=== PATIENT | male | born 1950 | race Caucasian/White ===

== ENCOUNTER 2018-01-02 20:45 | Outpatient (CLI) | payer MEDICARE, OTHER ==
[~2018-01-02 20:45] MED LIST: ACHD5005 PO; CYCL10TA9 PO; DICL75TA2 PO; FLUO40CA12 PO; LISI1TAB10 PO; LISI1TAB6 PO; LORA1TAB PO; MELA1TAB10 PO; MTF500T PO; OMEP20TA2 PO; OXYC-471 PO; TRAZ150T42 PO
== END 2018-01-03 06:15 | disposition home or self-care (01) ==
LOC: SLEEP 20:45
PROVIDERS: ATTEND Nurse Practitioner Community Health
DX: G47.33 Obstructive sleep apnea (adult) (pediatric) (principal); R06.83 Snoring; G47.10 Hypersomnia, unspecified
CPT/HCPCS: 95811

== ENCOUNTER 2018-01-21 20:40 | Outpatient (CLI) | payer MEDICARE, OTHER | END 2018-01-22 06:25 | disposition home or self-care (01) | LOC: SLEEP 20:40 | PROVIDERS: ATTEND Nurse Practitioner | DX: G47.33 Obstructive sleep apnea (adult) (pediatric) (principal) | CPT/HCPCS: 95811 ==

== ENCOUNTER → 2018-02-10 | Outpatient (CLI) | payer MEDICARE ==
--- NOTE | 2018-02-10 14:19 | Diagnostic Imaging Report ---
PROCEDURE: US left lower extremity venous. TECHNIQUE: Multiple real-time grayscale images were obtained over the left lower extremity in various projections. Additional duplex Doppler and color Doppler images were also obtained. INDICATION: Left thigh redness and lump. COMPARISON: None. FINDINGS: The left common femoral vein, superficial femoral vein, and popliteal vein appear patent and compressible. No visible thrombus is seen. There is, however, thrombus superficially seen within a branch of the greater saphenous vein about 3 inches proximal to the knee. IMPRESSION: 1. Superficial thrombophlebitis as described. 2. No evidence of deep venous thrombosis in the left lower extremity. Dictated by: Dictated on workstation # [id number]
== END ==
LOC: RAD 13:07
PROVIDERS: ATTEND Nurse Practitioner Family
DX: I80.02 Phlebitis and thrombophlebitis of superficial vessels of left lower extremity (principal)

== ENCOUNTER → 2018-02-12 | Outpatient (CLI) | payer MEDICARE | LOC: LAB 11:46 | PROVIDERS: ATTEND Pediatrics | DX: I82.812 Embolism and thrombosis of superficial veins of left lower extremity (principal) | CPT/HCPCS: 36415; 81241 ==

== ENCOUNTER → 2018-02-15 | Outpatient (CLI) | payer MEDICARE ==
--- NOTE | 2018-02-15 08:17 | Diagnostic Imaging Report ---
INDICATION: Superficial thrombus in the left leg. Post recent fall. TECHNIQUE: Grayscale with color-flow and Doppler waveform evaluation of the right lower extremity deep venous system. CORRELATION STUDY: None FINDINGS: Color and grayscale sonographic images demonstrate no intraluminal defect within the visualized portion of the common femoral, superficial femoral and/or popliteal veins to suggest thrombus formation. These vessels demonstrate normal response to compression and augmentation. No soft tissue fluid collection. IMPRESSION: 1. Negative for deep venous thrombosis of the right leg. Dictated by: Dictated on workstation # [id number]
== END ==
LOC: RAD 07:30
PROVIDERS: ATTEND Pediatrics
DX: I82.812 Embolism and thrombosis of superficial veins of left lower extremity (principal)

== ENCOUNTER 2018-12-13 17:17 | Observation (INO) | payer MEDICARE, OTHER ==
[~2018-12-13] VITALS: Ht 180.3 cm; Wt 117.5 kg
--- NOTE | 2018-12-13 17:50 | NUR ---
GERMAN RAMIREZ admitted to room 420-1, with an admitting diagnosis of anemia , on 12/13/18 from direct admission via ambulation, accompanied by self. GERMAN RAMIREZ introduced to surroundings, call light, bed controls, phone, TV, temperature control, lights, meal times, smoking policy, visitor policy, side rail policy, bathrooms and showers. Patient Rights given to patient in the handbook. GERMAN RAMIREZ verbalizes understanding that [facility] is not responsible for the loss or damage to any personal effects or valuables that are kept in the patients posession during their hospitalization. GERMAN RAMIREZ verbalizes understanding of Interdisciplinary Patient Education. Patient and/or family were informed about the Rapid Response Team and its purpose.
[2018-12-13] MEDS ORDERED: PATIENT MAY USE OWN MEDS, ALL PO SCH (18:00)
[2018-12-13] MEDS ORDERED: DOCUSATE SODIUM 100 MG (COLACE) CAP PO PRN (18:00)
[2018-12-13 18:05] VITALS: BP 104/66
[2018-12-13 18:18] VITALS: BP 104/66
[2018-12-13 18:24] LABS: BASOPHILS # (AUTO) 0.1 10^3/uL (0.0-0.1); BASOPHILS % (AUTO) 1 % (0-10); EOSINOPHILS # (AUTO) 0.2 10^3/uL (0.0-0.3); EOSINOPHILS % (AUTO) 2 % (0-10); HEMATOCRIT 31 % (40-54); HEMOGLOBIN 10.3 G/DL (13.3-17.7); LYMPHOCYTES # (AUTO) 1.3 X 10^3 (1.0-4.0); LYMPHOCYTES % (AUTO) 12 % (12-44); MEAN CORPUSCULAR HEMOGLOBIN 29 PG (25-34); MEAN CORPUSCULAR HGB CONC 33 G/DL (32-36); MEAN CORPUSCULAR VOLUME 87 FL (80-99); MONOCYTES # (AUTO) 1.1 X 10^3 (0.0-1.0); MONOCYTES % (AUTO) 10 % (0-12); NEUTROPHILS # (AUTO) 8.4 X 10^3 (1.8-7.8); NEUTROPHILS % (AUTO) 76 % (42-75); PLATELET COUNT 426 10^3/uL (130-400); RED CELL DISTRIBUTION WIDTH 14.9 % (10.0-14.5); WHITE BLOOD COUNT 11.1 10^3/uL (4.3-11.0)
[2018-12-13] MEDS: NS IV 1000 ML 1,000 ML IV SCH (18:39)
[2018-12-13 18:40] LABS: BILIRUBIN,TOTAL 0.4 MG/DL (0.1-1.0); CALCIUM 9.2 MG/DL (8.5-10.1); CREATININE SERUM 2.18 MG/DL (0.60-1.30); POTASSIUM 4.8 MMOL/L (3.6-5.0); TOTAL PROTEIN 6.6 GM/DL (6.4-8.2)
[2018-12-13 20:25] LABS: HEMOGLOBIN 9.4 G/DL (13.3-17.7)
[2018-12-13 20:32] VITALS: BP 102/55
[2018-12-14] VITALS: BP 103/57
[2018-12-14] MEDS: NS IV 1000 ML 1,000 ML IV SCH ×3 (02:20→18:42)
[2018-12-14 04:07] VITALS: BP 95/55
[2018-12-14 04:23] LABS: HEMOGLOBIN 8.9 G/DL (13.3-17.7)
[2018-12-14 04:40] LABS: CALCIUM 8.4 MG/DL (8.5-10.1); CREATININE SERUM 1.36 MG/DL (0.60-1.30); POTASSIUM 4.6 MMOL/L (3.6-5.0)
[2018-12-14 07:59] VITALS: BP 111/56
[2018-12-14 12:05] VITALS: BP 120/65
--- NOTE | 2018-12-14 12:42 | History & Physicial (CHS) ---
HPI History of Present Illness: 68 yo male presented to walk in clinic at [facility] yesterday due to worsening dizziness and weakness at work. He states he started having black stools a couple of weeks ago and has been a little dizzy since then, but yesterday was markedly dizzy with bending over or standing up and felt as if he would pass out due to weakness in knees and shoulders when he stood. He was found to have a significant drop in hemoglobin over a few days in clinic and was admitted for further monitoring and work-up. He states he had a colonoscopy a few years ago that was normal, had a colonoscopy around 10 years ago that had precancerous polyp removed. He does not believe he has had upper endoscopy and denies history of ulcer. He has had some abdominal fullness as well as some difficulty passing urine and constipation over the last week. Source: patient Date seen by provider: Dec 14, 2018 Time Seen by Provider: 10:55 Attending Physician Maninder Rutledge MD [facility] [place] Consult Date of Admission Dec 13, 2018 at 17:44 Home Medications Home Medications Reviewed patient Home Medication Reconciliation performed by pharmacy medication reconciliations geotechnical engineering technician and/or nursing. Patients Allergies have been reviewed. Allergies Coded Allergies: No Known Drug Allergies (Unverified , 12/13/18) EAG-Usoqzv-Dunmdk Hx Patient Social History Alcohol Use: Denies Use Recreational Drug Use: No Recent Foreign Travel: No Contact w/other who traveled: No Recent Hopitalizations: No Physical Abuse Screen: No Sexual Abuse: No Immunizations Up To Date Date of Influenza Vaccine: Aug 11, 2018 Past Medical History PMHx: DMII HTN Depression PSurgHx: Pilonidal cyst removal Gastric bypass Rotator cuff repair right Family Medical History Significant Family History: Cancer, Psychiatric Problems Family History: Dementia 19 FATHER, FH: pulmonary embolism Myocardial infarction G8 BROTHER, Review of Systems ([facility]) Constitutional: see HPI EENTM: No nose congestion Respiratory: No cough, No short of breath Cardiovascular: No chest pain Gastrointestinal: see HPI Genitourinary: see HPI Musculoskeletal: joint pain (knees and shoulders) Skin: No rash Psychiatric/Neurological: No Symptoms Reported Reviewed Test Results Reviewed Test Results Lab Laboratory Tests Test 12/13/18 18:08 12/13/18 20:02 12/14/18 00:17 12/14/18 04:15 Range/Units White Blood Count 11.1 H 4.3-11.0 10^3/uL Red Blood Count 3.62 L 4.35-5.85 10^6/uL Hemoglobin 10.3 L 9.4 L 9.0 L 8.9 L 13.3-17.7 G/DL Hematocrit 31 L 29 L 28 L 27 L 40-54 % Mean Corpuscular Volume 87 80-99 FL Mean Corpuscular Hemoglobin 29 25-34 PG Mean Corpuscular Hemoglobin Concent 33 32-36 G/DL Red Cell Distribution Width 14.9 H 10.0-14.5 % Platelet Count 426 H 130-400 10^3/uL Mean Platelet Volume 9.0 7.4-10.4 FL Neutrophils (%) (Auto) 76 H 42-75 % Lymphocytes (%) (Auto) 12 12-44 % Monocytes (%) (Auto) 10 0-12 % Eosinophils (%) (Auto) 2 0-10 % Basophils (%) (Auto) 1 0-10 % Neutrophils # (Auto) 8.4 H 1.8-7.8 X 10^3 Lymphocytes # (Auto) 1.3 1.0-4.0 X 10^3 Monocytes # (Auto) 1.1 H 0.0-1.0 X 10^3 Eosinophils # (Auto) 0.2 0.0-0.3 10^3/uL Basophils # (Auto) 0.1 0.0-0.1 10^3/uL Sodium Level 136 137 135-145 MMOL/L Potassium Level 4.8 4.6 3.6-5.0 MMOL/L Chloride Level 106 108 H 98-107 MMOL/L Carbon Dioxide Level 17 L 20 L 21-32 MMOL/L Anion Gap 13 9 5-14 MMOL/L Blood Urea Nitrogen 57 H 48 H 7-18 MG/DL Creatinine 2.18 H 1.36 H 0.60-1.30 MG/DL Estimat Glomerular Filtration Rate 30 52 BUN/Creatinine Ratio 26 35 Glucose Level 122 H 108 H 70-105 MG/DL Calcium Level 9.2 8.4 L 8.5-10.1 MG/DL Corrected Calcium 9.2 8.5-10.1 MG/DL Total Bilirubin 0.4 0.1-1.0 MG/DL Aspartate Amino Transf (AST/SGOT) 17 5-34 U/L Alanine Aminotransferase (ALT/SGPT) 13 0-55 U/L Alkaline Phosphatase 36 L 40-136 U/L Total Protein 6.6 6.4-8.2 GM/DL Albumin 4.0 3.2-4.5 GM/DL Physical Exam-([facility]) Physical Exam Vital Signs VS - Last 72 Hours, by Label 12/13/18 12/13/18 12/13/18 12/13/18 18:05 18:18 18:19 20:00 Temp 97.6 97.6 Pulse 88 88 Resp 20 20 B/P (MAP) 104/66 (79) 104/66 Pulse Ox 100 100 100 O2 Delivery Room Air Room Air Room Air Room Air 12/13/18 12/14/18 12/14/18 12/14/18 20:32 00:00 04:07 07:59 Temp 98.2 99.1 98.1 97.8 Pulse 96 74 71 71 Resp 20 16 16 16 B/P (MAP) 102/55 (71) 103/57 (72) 95/55 (68) 111/56 (74) Pulse Ox 98 97 95 94 O2 Delivery Room Air NIV CPAP NIV CPAP Room Air 12/14/18 12/14/18 08:55 12:05 Temp 98.8 Pulse 76 Resp 16 B/P (MAP) 120/65 (83) Pulse Ox 94 O2 Delivery Room Air Room Air Capillary Refill : General Appearance: WD/WN, no apparent distress Respiratory: lungs clear, normal breath sounds Cardiovascular: regular rate, rhythm, no murmur Gastrointestinal: normal bowel sounds, non tender, soft; No mass Extremities: no pedal edema Neurologic/Psychiatric: alert, normal mood/affect Skin: normal color, warm/dry Assessment/Plan Assessment/Plan Admission Dx GI bleeding Admission Status: Observation (1) Anemia Status: Acute Assessment & Plan: Suspect due to GI bleed with positive occult blood in stool at clinic yesterday. Surgery consulted, appreciate recommendations. Hemoglobin relatively stable, continue to monitor. Check iron studies and peripheral smear. Qualifiers: Qualified Codes: D64.9 - Anemia, unspecified (2) Acute renal insufficiency Status: Acute Assessment & Plan: Uncertain etiology, possibly due to hypotension versus dehydration. Improved this am with IVF overnight. (3) Diabetes mellitus, type 2 Status: Chronic Assessment & Plan: Sliding scale insulin, diabetic diet when taking PO. Qualifiers: Qualified Codes: E11.65 - Type 2 diabetes mellitus with hyperglycemia (4) Hypertension Status: Chronic Assessment & Plan: Borderline hypotensive, hold home anti-hypertensives (5) BPH (benign prostatic hyperplasia) Status: Chronic Qualifiers: Qualified Codes: N40.1 - Benign prostatic hyperplasia with lower urinary tract symptoms; R39.11 - Hesitancy of micturition (6) EMIR (obstructive sleep apnea) Status: Chronic Assessment & Plan: CPAP (7) Leukocytosis Status: Resolved Assessment & Plan: Suspect reactive related to anemia, resolved this am. Qualifiers: Qualified Codes: D72.828 - Other elevated white blood cell count (8) Thrombocytosis Status: Resolved Assessment & Plan: Likely reactive, resolved this am. (9) DVT prophylaxis Status: Acute Assessment & Plan: No enoxaparin due to possible active bleeding. SCDs. Clinical Quality Measures DVT/VTE Risk/Contraindication: Risk Factor Score Per Nursin RFS Level Per Nursing on Admit: 2=Moderate Contraindications-Pharm: Other *list below* Other: GI bleed MANINDER RUTLEDGE MD Dec 14, 2018 12:42
[2018-12-14] MEDS ORDERED: QUET100T69 PO (12:45)
[2018-12-14] MEDS ORDERED: QUET300T44 PO (12:45)
[2018-12-14] MEDS ORDERED: METF-397 PO (12:45)
[2018-12-14] MEDS ORDERED: NF-ACI30T PO (12:57)
[2018-12-14] MEDS ORDERED: LORA10TA7 PO (12:57)
[2018-12-14] MEDS ORDERED: FISH1CAP15 PO (12:57)
[2018-12-14] MEDS ORDERED: HYDR-3812 PO (12:57)
[2018-12-14] MEDS ORDERED: ASPI-983 PO (12:57)
[2018-12-14] MEDS ORDERED: DESV50TA PO (12:57)
[2018-12-14] MEDS ORDERED: GINK120C PO (12:57)
[2018-12-14] MEDS ORDERED: MELA10CA2 PO (12:57)
--- NOTE | 2018-12-14 12:58 | NUR ---
SPOKE WITH THE PATIENT ABOUT HIS MEDICATIONS. HE HAD HIS BOTTLES WITH HIM AND VERIFIED HOW HE IS TAKING THEM. IN ADDITION TO WHAT IS SHOWN ON THE EXT MED HX HE FILLED PRISTIQ 50MG DAILY #30 12-02-18 - HE STATES THIS WAS TO REPLACE THE 100MG, HIS DOSE WAS DECREASED. HE ALSO HAS TWO BOTTLES OF SEROQUEL 100MG, HE STATES HE NOW TAKES IT AM AND AFTERNOON AND THE 300MG AT HS. OTC MEDS: ASPIRIN 81MG HS MELATONIN 10MG HS GINKGO BILOBA HS FISH OIL 1200MG BID
[2018-12-14 13:04] LABS: ABSOLUTE RETIC # 66 10e9/L (24-90); BASOPHILS # (AUTO) 0.1 10^3/uL (0.0-0.1); BASOPHILS % (AUTO) 1 % (0-10); EOSINOPHILS # (AUTO) 0.2 10^3/uL (0.0-0.3); EOSINOPHILS % (AUTO) 4 % (0-10); HEMATOCRIT 28 % (40-54); HEMOGLOBIN 8.8 G/DL (13.3-17.7); LYMPHOCYTES % (AUTO) 15 % (12-44); MEAN CORPUSCULAR HEMOGLOBIN 28 PG (25-34); MEAN CORPUSCULAR HGB CONC 32 G/DL (32-36); MEAN CORPUSCULAR VOLUME 87 FL (80-99); MEAN PLATELET VOLUME 8.8 FL (7.4-10.4); MONOCYTES # (AUTO) 0.8 X 10^3 (0.0-1.0); MONOCYTES % (AUTO) 12 % (0-12); NEUTROPHILS # (AUTO) 4.6 X 10^3 (1.8-7.8); NEUTROPHILS % (AUTO) 68 % (42-75); PLATELET COUNT 399 10^3/uL (130-400); RETICULOCYTE % 2.09 % (0.50-2.40); WHITE BLOOD COUNT 6.7 10^3/uL (4.3-11.0)
[2018-12-14 13:47] LABS: BAND NEUTROPHILS 2 %; LYMPHOCYTES % (MANUAL) 21 %; MONOCYTES % (MANUAL) 10 %; NEUTROPHILS % (MANUAL) 62 %
[2018-12-14 13:48] LABS: ANISOCYTOSIS SLIGHT; BASOPHILS % (MANUAL) 1 %; EOSINOPHILS % (MANUAL) 4 %
--- NOTE | 2018-12-14 15:27 | Conscious Sedation/ASA ---
Conscious Sedation Pre-Proced Time 15:27 ASA Score 2 For ASA 3 and 4: Consider anesthesia and medical clearance. Also, for patients with a history of failed moderate sedation consider anesthesia. Airway Lungs Heart ASA score ASA 1: a normal healthy patient ASA 2: a patient with a mild systemic disease (mid diabetes, controlled hypertension, obesity ASA 3: a patient with a severe systemic disease that limits activity (angina , COPD, prior Myocardial infarction) ASA 4: a patient with an incapacitating disease that is a constant threat to life (CHF, renal failure) ASA 5: a moribund patient not expected to survive 24 hrs. (ruptured aneurysm) ASA 6: a declared brain- patient whose organs are being harvested. For emergent operations, add the letter E after the classification Mallampati Classification Grade 2 Sedation Plan Discussed options with patient/fam The patient is an appropriate candidate to undergo the planned procedure, sedation, and anesthesia. The patient immediately re-assessed prior to indication. SHARMILA PIÑA MD Dec 14, 2018 15:27
--- NOTE | 2018-12-14 15:27 | Consultation ---
History of Present Illness History of Present Illness Patient Consulted On(mickey/time) 12/14/18 15:24 Date Seen by Provider: Dec 14, 2018 Time Seen by Provider: 15:24 Reason for Visit: iron deficiency anemia with a history of polyps History of Present Illness gentleman with symptomatic and deficiency anemia admitted with melena. Previous history of polyps. Gastric bypass several years ago. Allergies and Home Medications Allergies Coded Allergies: No Known Drug Allergies (Unverified , 12/13/18) Home Medications Aspirin 81 Mg Tablet.dr, 81 MG PO HS, (Reported) Cyclobenzaprine HCl 10 Mg Tablet, 10 MG PO BID PRN for MUSCLE SPASMS, (Reported) Desvenlafaxine Succinate 50 Mg Tab.er.24h, 50 MG PO DAILY, (Reported) Diclofenac Sodium 75 Mg Tablet.dr, 75 MG PO BID, (Reported) Fish Oil/Dha/Epa 1 Each Capsule, 1,200 MG PO BID, (Reported) Ginkgo Biloba Extract 120 Mg Capsule, 120 MG PO HS, (Reported) Hydrocodone/Acetaminophen 1 Each Tablet, 1 TAB PO Q6H PRN for PAIN-MODERATE, ( Reported) Lisinopril/Hydrochlorothiazide 1 Each Tablet, 1 TAB PO DAILY, (Reported) Loratadine 10 Mg Tablet, 10 MG PO DAILY, (Reported) Melatonin 10 Mg Capsule, 10 MG PO HS, (Reported) Metformin HCl 500 Mg Tablet, 500 MG PO BID, (Reported) Quetiapine Fumarate 300 Mg Tablet, 300 MG PO HS, (Reported) Quetiapine Fumarate 100 Mg Tablet, 100 MG PO 0800,1300, (Reported) Rabeprazole Sodium 20 Mg Tablet.dr, 20 MG PO DAILY PRN for HEARTBURN, (Reported) Patient Home Medication List Home Medication List Reviewed: Yes Past Dejrwla-Zxdmzj-Dhvtbj Hx Patient Social History Alcohol Use: Denies Use Recreational Drug Use: No Recent Foreign Travel: No Contact w/Someone Who Travel: No Recent Hopitalizations: No Immunizations Up To Date PED Vaccines UTD: No Date of Influenza Vaccine: Aug 11, 2018 Seasonal Allergies Seasonal Allergies: No Past Medical History Surgeries: Yes (gastric bypass, pilondial cyst, ) Respiratory: Yes (uses cpap, ) Sleep Apnea Currently Using CPAP: Yes Currently Using BIPAP: No Cardiac: Yes (hypertension prior to weight loss) Neurological: No Gastrointestinal: Yes Gastroesophageal Reflux Musculoskeletal: Yes Arthritis Endocrine: Yes Cancer: No Psychosocial: No Depression Integumentary: No Blood Disorders: No Family Medical History Dementia 19 FATHER, FH: pulmonary embolism Myocardial infarction G8 BROTHER, Cancer, Psychiatric Problems Review of Systems-General Constitutional: dizziness, weakness Respiratory: no symptoms reported Cardiovascular: see HPI Gastrointestinal: see HPI Genitourinary: no symptoms reported Musculoskeletal: no symptoms reported Skin: no symptoms reported Psychiatric/Neurological: No Symptoms Reported Physical Exam-General Problems Physical Exam Vital Signs Vital Signs - First Documented 12/13/18 18:05 Temp 97.6 Pulse 88 Resp 20 B/P (MAP) 104/66 (79) Pulse Ox 100 O2 Delivery Room Air Capillary Refill : General Appearance: no apparent distress Neck: supple Cardiovascular: regular rate, rhythm Gastrointestinal: soft, hernia Rectal: deferred Neurologic/Psychiatric: alert, oriented x 3 Skin: warm/dry Comments upper midline scar with a long-standing incisional hernia. Nontender Assessment/Plan Assessment/Plan Admission Diagnosis/Plan gentleman with iron deficiency anemia. Previous gastric bypass and history of polyps. Reasonable to perform upper endoscopy with concomitant colonoscopy. Discussed in detail and scheduled for tomorrow Admission Status: Observation Clinical Quality Measures DVT/VTE Risk/Contraindication: Risk Factor Score Per Nursin RFS Level Per Nursing on Admit: 2=Moderate Contraindications-Pharm: Other *list below* Other: GI bleed SHARMILA PIÑA MD Dec 14, 2018 15:26
[2018-12-14] MEDS ORDERED: MAGNESIUM CITRATE 300 ML BTL PO NR ×2 (15:30→19:00)
[2018-12-14 19:31] VITALS: BP 129/80
[2018-12-15] VITALS: BP 115/76
[2018-12-15] MEDS: NS IV 1000 ML 1,000 ML IV SCH ×2 (02:44→10:41)
[2018-12-15 04:38] VITALS: BP 104/67
[2018-12-15] MEDS ORDERED: MAGNESIUM CITRATE 300 ML BTL PO NR (06:00)
[2018-12-15 06:26] LABS: HEMOGLOBIN 9.1 G/DL (13.3-17.7); MEAN PLATELET VOLUME 8.3 FL (7.4-10.4); RED CELL DISTRIBUTION WIDTH 14.9 % (10.0-14.5); WHITE BLOOD COUNT 5.1 10^3/uL (4.3-11.0)
[2018-12-15 07:04] LABS: BUN/CREATININE RATIO 33; CALCIUM 8.4 MG/DL (8.5-10.1); CARBON DIOXIDE 26 MMOL/L (21-32); CHLORIDE 107 MMOL/L (98-107); GFR ESTIMATED > 60; GLUCOSE 109 MG/DL (70-105); POTASSIUM 4.6 MMOL/L (3.6-5.0); SODIUM 138 MMOL/L (135-145)
[2018-12-15] MEDS ORDERED: LORATADINE (CLARITIN) 10 MG TAB PO SCH (09:00)
[2018-12-15 09:05] VITALS: BP 132/62
[2018-12-15 12:05] VITALS: BP 120/75
--- NOTE | 2018-12-15 12:39 | NUR ---
TO SCOPE ROOM PER W/C.
[2018-12-15] MEDS ORDERED: NS IV 500 ML 500 ML ONE (12:43)
[2018-12-15] MEDS ORDERED: QUEtiapine 100 MG (SEROquel) TAB IMMEDIATE RELEASE PO SCH (13:00)
[2018-12-15] MEDS ORDERED: HURRICAINE EXT TUBE (BENZOCAINE) XX ONE (13:00)
[2018-12-15] MEDS ORDERED: NS IV 500 ML 500 ML IV ONE (13:00)
[2018-12-15] MEDS ORDERED: MIDAZOLAM 2 MG/2 ML (VERSED) VIAL ONE ×3 (13:09)
[2018-12-15] MEDS ORDERED: fentaNYL INJECTION 100 MCG/2 ML AMP ONE (13:09)
[2018-12-15] MEDS ORDERED: HURRICAINE EXT TUBE (BENZOCAINE) ONE (13:10)
[2018-12-15] MEDS: MIDAZOLAM 2 MG/2 ML (VERSED) VIAL IVP PRN ×4 (13:16→13:45)
[2018-12-15] MEDS: fentaNYL INJECTION 100 MCG/2 ML AMP IVP PRN ×2 (13:18→13:44)
[2018-12-15] MEDS ORDERED: HYDROcodone/APAP 5 MG/325 MG (LORTAB) TAB PO PRN ×2 (14:00→14:15)
--- NOTE | 2018-12-15 14:02 | Endo Procedure Record ---
Endo Procedure Report Date of Procedure Last Colonoscopy: Yes Dec 15, 2018 Surgeon (s) SHARMILA PIÑA MD Post Procedure/Op Diagnosis upper endoscopy: Esophageal candidiasis from 33 cm to 40 cm. Normal gastric pouch and jejunum( previous gastric bypass for morbid obesity) Colonoscopy: Very poor bowel prep. Sigmoid diverticulosis Procedure Performed EGD with brush cytology Colonoscopy Description of Procedure Anesthesia Type: Conscious Sedation Specimen(s) collected/removed cytology from esophageal candidiasis Description of the Procedure Indication for the procedures: This gentleman has been admitted with iron deficiency anemia and has a personal history of polyps. He had undergone open gastric bypass several years ago to manage morbid obesity. He was offered upper endoscopy with concomitant colonoscopy as part of the evaluation. Informed consent was obtained after reviewing the procedures in detail. Description of the procedures: Upper endoscopy/brush cytology: He was placed in left lateral position and his vital signs were monitored. Conscious sedation was achieved using Versed and fentanyl. Flexible gastroscope was then introduced down the esophagus, past the gastric pouch into the jejunum. Findings: Esophagus: Changes of activity candidiasis with fibrinous exudates and erythema of the mucosa extending from 32 cm up to the gastroesophageal junction. [place] cytology was obtained. The gastric pouch and jejunum were normal. He tolerated the procedure well and was turned around in preparation for colonoscopy. Impression: An deficiency anemia. Changes of esophageal candidiasis.[place] cytology pending. Will treat conservatively. Colonoscopy: Digital rectal examination revealed incomplete bowel preparation. The colonoscope was then introduced in the rectum and advanced to the right colon. The quality of bowel preparation was rather poor. The scope was then withdrawn slowly and the mucosa examined in a systematic fashion. Findings: Sigmoid diverticulosis. No obvious polyps were discovered, given the limitation due to inadequate bowel preparation. Copy Copies To 1: MANINDER SZYMANSKI MD, XAVIER M MD Dec 15, 2018 14:01
--- NOTE | 2018-12-15 14:36 | NUR ---
RETURNED FROM SCOPE ROOM PER W/C. ALERT AND COOPERATIVE. SKIN W/D. RESP. REGULAR. V/S= TEMP= 97 AG=780/84 P=70 R=20 O2 SAT=97 % ON R/A. DENIES PAIN AT THIS TIME. ABD. SOFT. FAMILY MEMBERS AT BEDSIDE.
[2018-12-15] MEDS ORDERED: FLUC200T5 PO (14:52)
--- NOTE | 2018-12-15 14:55 | Discharge Instructions ---
Discharge [facility] Discharge Medications New, Converted or Re-Newed RX: Transmitted to Pharmacy New Medications: Fluconazole (Fluconazole) 200 Mg Tablet 200 MG PO DAILY, #14 TAB 0 Refills Continued Medications: Aspirin (Aspirin EC) 81 Mg Tablet.dr 81 MG PO HS, TAB Cyclobenzaprine HCl (Cyclobenzaprine HCl) 10 Mg Tablet 10 MG PO BID PRN for MUSCLE SPASMS, TAB Desvenlafaxine Succinate (Pristiq ER) 50 Mg Tab.er.24h 50 MG PO DAILY, TAB Fish Oil/Dha/Epa (Fish Oil 1,200 mg Fish Oil) 1 Each Capsule 1200 MG PO BID, CAP Ginkgo Biloba Extract (Ginkgo Biloba) 120 Mg Capsule 120 MG PO HS, CAP Loratadine (Loratadine) 10 Mg Tablet 10 MG PO DAILY, TAB Melatonin (Melatonin) 10 Mg Capsule 10 MG PO HS, CAP Metformin HCl (Metformin HCl) 500 Mg Tablet 500 MG PO BID, TAB Rabeprazole Sodium (Aciphex) 20 Mg Tablet.dr 20 MG PO DAILY PRN for HEARTBURN, TAB Discontinued Medications: Diclofenac Sodium (Diclofenac Sodium) 75 Mg Tablet.dr 75 MG PO BID, TAB Hydrocodone/Acetaminophen (Hydrocodone-Acetamin 5-325 mg) 1 Each Tablet 1 TAB PO Q6H PRN for PAIN-MODERATE, TAB Lisinopril/Hydrochlorothiazide (Lisinopril-Hctz 10-12.5 mg Tab) 1 Each Tablet 1 TAB PO DAILY, TAB Quetiapine Fumarate (Quetiapine Fumarate) 300 Mg Tablet 300 MG PO HS, TAB Quetiapine Fumarate (Quetiapine Fumarate) 100 Mg Tablet 100 MG PO 0800,1300, TAB Patient Instructions Goal/Follow Up Appt: Follow up with Williams Marrero APRN on 12/20 at 12:40 pm. Patient Instructions: 1. Stop taking your blood pressure medicine for now due to low blood pressure- may need to be resumed, so monitor blood pressure closely. 2. Stop taking diclofenac as it can cause kidney trouble as well as increase risk of gastrointestinal bleeding. 3. Hold your seroquel and hydrocodone while taking diflucan for the esophageal yeast infection because they can cause a dangerous interaction. Return to The Hospital For: Dizziness, shortness of breath, chest pain Activity & Diet Discharge Diet: ADA Diet Activity as Tolerated: Yes Copy Copies To 1: AMANDA Talbert BETHANY N MD Dec 15, 2018 11:52
--- NOTE | 2018-12-15 14:56 | Discharge Summary ---
Diagnosis/Chief Complaint Date of Admission Dec 13, 2018 at 17:50 Date of Discharge Discharge Diagnosis Problems/Diagnosis: (1) Anemia Assessment & Plan: Suspect due to GI bleed with positive occult blood in stool at clinic yesterday. Surgery consulted, appreciate recommendations. Hemoglobin relatively stable, continue to monitor. Check iron studies and peripheral smear. Qualifiers: Qualified Codes: D64.9 - Anemia, unspecified Status: Acute (2) Acute renal insufficiency Assessment & Plan: Uncertain etiology, possibly due to hypotension versus dehydration. Improved this am with IVF overnight. Status: Acute (3) Diabetes mellitus, type 2 Assessment & Plan: Sliding scale insulin, diabetic diet when taking PO. Qualifiers: Qualified Codes: E11.65 - Type 2 diabetes mellitus with hyperglycemia Status: Chronic (4) Hypertension Assessment & Plan: Borderline hypotensive, hold home anti-hypertensives Status: Chronic (5) BPH (benign prostatic hyperplasia) Qualifiers: Qualified Codes: N40.1 - Benign prostatic hyperplasia with lower urinary tract symptoms; R39.11 - Hesitancy of micturition Status: Chronic (6) EMIR (obstructive sleep apnea) Assessment & Plan: CPAP Status: Chronic (7) Leukocytosis Assessment & Plan: Suspect reactive related to anemia, resolved this am. Qualifiers: Qualified Codes: D72.828 - Other elevated white blood cell count Status: Resolved Resolution Date/Time: 12/14/18 @ 12:48 (8) Thrombocytosis Assessment & Plan: Likely reactive, resolved this am. Status: Resolved Resolution Date/Time: 12/14/18 @ 12:48 (9) DVT prophylaxis Assessment & Plan: No enoxaparin due to possible active bleeding. SCDs. Status: Acute Chief Complaint/HPI Chief Complaint/HPI 68 yo male presented to walk in clinic at [facility] yesterday due to worsening dizziness and weakness at work. He states he started having black stools a couple of weeks ago and has been a little dizzy since then, but yesterday was markedly dizzy with bending over or standing up and felt as if he would pass out due to weakness in knees and shoulders when he stood. He was found to have a significant drop in hemoglobin over a few days in clinic and was admitted for further monitoring and work-up. He states he had a colonoscopy a few years ago that was normal, had a colonoscopy around 10 years ago that had precancerous polyp removed. He does not believe he has had upper endoscopy and denies history of ulcer. He has had some abdominal fullness as well as some difficulty passing urine and constipation over the last week. Discharge Summary-Simple/Stand Consultations Discharge Physical Examination Allergies: Coded Allergies: No Known Drug Allergies (Unverified , 12/13/18) Vitals & I&Os Vital Sign - Last 12Hours Date Time Temp Pulse Resp B/P (MAP) Pulse Ox O2 Delivery O2 Flow Rate FiO2 12/15/18 12:05 98.4 72 18 120/75 (90) 97 Room Air Intake and Output 12/15/18 00:00 Intake Total 440 ml Output Total 1 ml Balance 439 ml Hospital Course See final discharge diagnosis. Discharge Instructions to patient/family Please see electronic discharge instructions given to patient. Discharge Medications Reviewed and agree with Discharge Medication list on patient's Discharge Instruction sheet Clinical Quality Measures DVT/VTE Risk/Contraindication: Risk Factor Score Per Nursin RFS Level Per Nursing on Admit: 2=Moderate Contraindications-Pharm: Other *list below* Other: GI bleed MANINDER SZYMANSKI MD Dec 15, 2018 14:56
--- NOTE | 2018-12-15 15:00 | NUR ---
ATE REGULAR DIET. BRAYAN. WELL.
[2018-12-15 16:00] VITALS: BP 120/75
--- NOTE | 2018-12-15 16:00 | NUR ---
GERMAN RAMIREZ demonstrates understanding of discharge instructions and accurately returns instructions upon questioning. Copy of Post-Discharge Instructions given to PT. GERMAN RAMIREZ is able to manage continuing needs after discharge. Patients belongings returned to PT. Patient discharged from [facility] on 12/15/18 at 1600. GERMAN RAMIREZ left floor via W/C, accompanied by STAFF AND FAMILY PER AUTO.
--- NOTE | 2018-12-15 16:11 | NUR ---
Pastoral care visit.
[2018-12-15] MEDS ORDERED: ASPIRIN E.C. 81 MG (ECOTRIN) TAB PO SCH (21:00)
[2018-12-15] MEDS ORDERED: Melatonin 10 MG PO SCH (21:00)
[2018-12-15] MEDS ORDERED: OMEGA 3 (FISH OIL) 1000 MG CAP PO SCH (21:00)
[2018-12-15] MEDS ORDERED: QUETIAPINE FUMARATE 300 MG PO SCH (21:00)
[2018-12-15] MEDS ORDERED: NYSTATIN ORAL SUSP 5 ML UDC PO SCH (21:00)
[2018-12-16] MEDS ORDERED: DESVENLAFAXINE SUCC 50 MG (PRISTIQ) TAB NON-FORMULARY PO SCH (09:00)
[2018-12-16] MEDS ORDERED: LORATADINE (CLARITIN) 10 MG TAB PO SCH (09:00)
[2018-12-17] MEDS ORDERED: fluCOnazole (DIFLUCAN) 100 MG TAB PO SCH (09:00)
== END 2018-12-15 16:00 | disposition home or self-care (01) ==
LOC: UNDOADMOB 17:44 → 4TH 17:44
PROVIDERS: ADMIT Family Medicine; ATTEND Family Medicine
DX: D50.9 Iron deficiency anemia, unspecified (principal); R19.5 Other fecal abnormalities; B37.81 Candidal esophagitis; K57.30 Diverticulosis of large intestine without perforation or abscess without bleeding; E11.9 Type 2 diabetes mellitus without complications; I10 Essential (primary) hypertension; F32.9 Major depressive disorder, single episode, unspecified; N28.9 Disorder of kidney and ureter, unspecified; N40.0 Benign prostatic hyperplasia without lower urinary tract symptoms; G47.33 Obstructive sleep apnea (adult) (pediatric); K21.9 Gastro-esophageal reflux disease without esophagitis; Z79.82 Long term (current) use of aspirin; Z79.84 Long term (current) use of oral hypoglycemic drugs; Z79.899 Other long term (current) drug therapy; Z86.010 Personal history of colon polyps; Z98.84 Bariatric surgery status
CPT/HCPCS: 36415; 80048; 80053; 82728; 83540; 85007; 85014; 85018; 85025; 85027; 85045; 87101; 99211; G0378

== ENCOUNTER → 2019-12-30 | Outpatient (CLI) | payer MEDICARE ==
[~2019-12-30] MED LIST changes: +AMLO5TAB9 PO; +ASPI-983 PO; +DESV100T PO; +DESV50TA PO; +DOCU100C37 PO; +FISH1CAP15 PO; +FLUC200T5 PO; +GABA-486 PO; +GINK120C PO; +GLIP5TAB13 PO; +HOLD METFORMIN - RECEIVED CONTRAST 20 ML VIAL IV SCH; +HYDR-3812 PO; +IOHEXOL 350 MG/ML 100 ML (OMNIPAQUE 350) VIAL IV ONE; +LISI1TAB29 PO; -LISI1TAB6 PO; +LORA10TA7 PO; +MELA10CA2 PO; +METF-397 PO; +NF-ACI30T PO; +NS 100 ML (IVPB) BAG IV ONE; +PANT40TA3 PO; +QUET100T PO; +QUET100T33 PO; +QUET300T2 PO; +QUET300T44 PO; +RT-ALBUTEROL SULF 2.5 MG/3 ML PRE-MIX VIAL INH ONE
[2019-12-30 08:03] LABS: BUN/CREATININE RATIO 21; CREATININE SERUM 1.04 MG/DL (0.60-1.30); GFR ESTIMATED > 60
[2019-12-30 08:23] LABS: ABG OXYGEN SATURATION 93 % (94-100); ABG PCO2 39 MMHG (35-45); ABG PH 7.41 (7.37-7.43); ABG PO2 74 MMHG (79-93); ABG TCO2 25.5 MMOL/L (21.0-31.0); ALLENS TEST YES-POS; INSPIRED O2 ROOM AIR
[2019-12-30 08:24] LABS: PATIENT TEMP 36.5; VENTILATOR NO
--- NOTE | 2019-12-30 11:42 | Diagnostic Imaging Report ---
PROCEDURE: CT chest with contrast only. TECHNIQUE: Multiple contiguous axial images were obtained through the chest after administration of intravenous contrast. Auto Exposure Controls were utilized during the CT exam to meet ALARA standards for radiation dose reduction. INDICATION: Dyspnea, morbid obesity, obstructive sleep apnea, tobacco use. CORRELATION STUDY: None. FINDINGS: Heart size is normal. There is presence of moderate coronary artery calcification particularly in the region of the LAD. No appreciable pericardial effusion. No pathologically enlarged mediastinal, hilar and/or axillary lymph nodes. Thoracic aorta is of normal caliber. There is presence of a small hiatal hernia. Scattered areas of asymmetric wall thickening about the esophagus present particularly in the mid aspect. Lung harris are clear. No infiltrate. Visualized portion of the upper abdomen demonstrates extensive surgical changes of the left upper quadrant of the stomach. Gallstones are present. Mild diffuse hepatic steatosis suggested. Advanced degenerative changes of thoracic spine with bulky bridging osteophytes present. IMPRESSION: 1. Negative for acute abnormality of the chest. 2. Presence of scattered coronary artery calcification. 3. Small hiatal hernia. Scattered areas of asymmetric wall thickening about the esophagus. Findings are nonspecific, could be owing to esophagitis. However, infiltrative process is not excluded. Correlation with symptoms recommended. 4. Cholelithiasis. Dictated by: Dictated on workstation # [id number]
[2019-12-31 07:41] LABS: ALTERNARIA MOLD RAST <0.35 kU/L (<0.35); RAGWEED RAST <0.35 kU/L (<0.35)
== END ==
LOC: RT 07:21
PROVIDERS: ATTEND Nurse Practitioner Family
DX: J44.9 Chronic obstructive pulmonary disease, unspecified (principal); G47.33 Obstructive sleep apnea (adult) (pediatric); J30.9 Allergic rhinitis, unspecified; R91.8 Other nonspecific abnormal finding of lung field
CPT/HCPCS: 36415; 36600; 71260; 82565; 82805; 84520; 86003; 94060; 94726; 94729

== ENCOUNTER 2020-01-04 13:03 | Outpatient (CLI) | payer MEDICARE ==
[~2020-01-04] VITALS: Ht 180 cm; Wt 122.0 kg
[~2020-01-04 13:03] MED LIST changes: -HOLD METFORMIN - RECEIVED CONTRAST 20 ML VIAL IV SCH; -IOHEXOL 350 MG/ML 100 ML (OMNIPAQUE 350) VIAL IV ONE; -NS 100 ML (IVPB) BAG IV ONE; -RT-ALBUTEROL SULF 2.5 MG/3 ML PRE-MIX VIAL INH ONE
== END 2020-01-04 13:16 | disposition home or self-care (01) ==
LOC: PREOP 13:03
PROVIDERS: ATTEND Surgery
DX: Z01.818 Encounter for other preprocedural examination (principal)

== ENCOUNTER 2020-06-17 08:33 | Observation (INO) | payer MEDICARE ==
[~2020-06-17] VITALS: Ht 177.8 cm; Wt 122.2 kg
[~2020-06-17 08:33] MED LIST changes: -HYDR-3812 PO
--- OUTSIDE RECORDS SUMMARY | 2020-06-17 08:39 | XMS REPORT ---
Author Author Barrie BUSTILLO Organization [facility] Address [address] [place] [address] Care Team Providers Care Yard Supervisor Cotton Gin Name Role Phone BARRIE BUSTILLO Unavailable PROBLEMS Type Condition ICD9-CM Code FFU40-TE Code Onset Dates Condition S tatus SNOMED Code Problem Primary insomnia F51.01 Active 397 2004 Problem Diabetes type 2, controlled E11.9 Ac tive 28471374 Problem Urinary hesitancy R39.11 Active 59 87905 Problem Essential hypertension I10 Active 56531187 Problem 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.1 Active 226284768 Problem Obstructive sleep apnea G47.33 Active 75735133 Problem Benign prostatic hyperplasia with lower urinary tract symptoms N40.1 Active 603807483 Problem Controlled type 2 diabetes m ellitus without complication, without long- term current use of insulin E11.9 Active 711258809 Problem 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 Acti ve 39257439 Problem Panlobular emphysema J43.1 Active 1288207 Problem Hesitancy of micturition R39.11 Activ e 9427422 Problem Chronic fatigue R53.82 Active 8422 9001 Problem Acute superficial venous thrombosis of left lower extremit y I82.812 Active [id number] Problem Uncontrolled type 2 diabetes mellitus with hyperglycemia E11.65 Active 799432347 Problem Arthritis M19.90 Active 0223200 Problem EMIR (obstructive sleep apnea) G47.33 Active 96682226 Problem Mood disorder F39 Active 178882 05 ALLERGIES No Information ENCOUNTERS Encounter Location Date Diagnosis [facility] [address] [facility] [id number] [address] [place] [phone] Jun, [facility] [address] [facility] [id number] [address] [place] [phone] Jun, [facility] [address] [facility] [id number] [address] [place] [phone] Jun, [place] [address] [id number] [address] [place] [phone] 16 May, 2020 Moderate episode of recurren t major depressive disorder F33.1 [place] [address] [id number] [address] [place] [id number] 03 May, 2020 [place] [address] [facility] [id number] [address] [place] [id number] 14 Apr, 2020 Encounter for screening labo ratory testing for COVID-19 virus Z11.59 [place] [address] [id number] [address] [place] [phone] 04 Apr, 2020 Moderate episode of recurren t major depressive disorder F33.1 [place] [address] [facility] [id number] [address] [place] [phone] 29 Mar, 2020 Diabetes type 2, controlled E11.9 ; Family history of early CAD Z82.49 ; Chest pain on exertion R07.9 and Chronic fatigue R53.82 [place] [address] [id number] [address] [place] [phone] March, [place] [address] [id number] [address] [place] [phone] March, Moderate episode of recurren t major depressive disorder F33.1 [place] [address] [facility] [id number] [address] [place] [phone] March, Moderate episode of recurren t major depressive disorder F33.1 [place] [address] [id number] [address] [place] [phone] March, Foot callus L84 [place] [address] [id number] [address] [place] [id number] March, Moderate episode of recurren t major depressive disorder F33.1 [place] [address] [id number] [address] [place] [phone] Jan, Foot callus L84 [place] [address] [facility] [id number] [address] [place] [phone] 07 Dec, 2019 Moderate episode of recurren t major depressive disorder F33.1 [facility] [address] [id number] [address] [place] [phone] 04 Dec, 2019 Moderate episode of recurren t major depressive disorder F33.1 [facility] [address] [id number] [address] [place] [phone] 04 Dec, 2019 Moderate episode of recurren t major depressive disorder F33.1 [facility] [address] [id number] [address] [place] [phone] 16 Nov, 2019 Panlobular emphysema J43.1 ; Mood disorder F39 and Controlled type 2 diabetes mellitus without complication, without long-term current use of insulin E11.9 [facility] [address] [id number] [address] [place] [phone] Nov, [place] [address] [facility] [id number] [address] [place] [phone] Nov, Increased sputum production R09.3 and EMIR (obstructive sleep apnea) G47.33 [facility] [address] [id number] [address] [place] [phone] Oct, [facility] [address] [id number] [address] [place] [phone] Sep, [facility] [address] [id number] [address] [place] [phone] Sep, [facility] [address] [id number] [address] [place] [id number] Sep, [facility] [address] [id number] [address] [place] [phone] Aug, Moderate episode of recurren t major depressive disorder F33.1 [facility] [address] [id number] [address] [place] [phone] Aug, Moderate episode of recurren t major depressive disorder F33.1 [facility] [address] [id number] [address] [place] [phone] Aug, Moderate episode of recurren t major depressive disorder F33.1 [facility] [address] [id number] [address] [place] [phone] Jul, [facility] [address] [id number] [address] [place] [phone] Jul, Foot callus L84 ; Uncontroll ed type 2 diabetes mellitus with hyperglycemia E11.65 ; Arthritis M19.90 ; Encounter for immunization Z23 ; Rib pain on right side R07.81 and Lumbar pain M54.5 [facility] [address] [id number] [address] [place] [phone] Jul, [facility] [address] [id number] [address] [place] [phone] Jun, [facility] [address] [id number] [address] [place] [phone] Jun, [facility] [address] [id number] [address] [place] [phone] Jun, Callus of foot L84 [facility] [address] [id number] [address] [place] [phone] Jun, [facility] [address] [id number] [address] [place] [phone] Apr, Exercise counseling Z71.82 [facility] [address] [id number] [address] [place] [phone] March, Moderate episode of recurren t major depressive disorder F33.1 [facility] [address] [id number] [address] [place] [phone] March, Moderate episode of recurren t major depressive disorder F33.1 [facility] [address] [id number] [address] [place] [phone] March, Exercise counseling Z71.82 [facility] [address] [id number] [address] [place] [phone] March, [facility] [address] [id number] [address] [place] [phone] March, Exercise counseling Z71.82 [facility] [address] [id number] [address] [place] [phone] March, Right otitis media with effu yousuf H65.91 ; 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 and Diabetes type 2, controlled E11.9 [place] [address] [id number] [address] [place] [phone] March, Moderate episode of recurren t major depressive disorder F33.1 [place] [address] [id number] [address] [place] [phone] March, Exercise counseling Z71.82 [place] [address] [facility] [id number] [address] [place] [phone] March, Exercise counseling Z71.82 [place] [address] [id number] [address] [place] [phone] March, Callus of foot L84 [place] [address] [id number] [address] [place] [phone] Feb, Moderate episode of recurren t major depressive disorder F33.1 [place] [address] [id number] [address] [place] [phone] Feb, [place] [address] [id number] [address] [place] [phone] Feb, Moderate episode of recurren t major depressive disorder F33.1 [facility] [address] [id number] [address] [place] [phone] Feb, Diabetes type 2, controlled E11.9 and Essential hypertension I10 [facility] [address] [id number] [address] [place] [phone] Jan, [facility] [address] [facility] [id number] [address] [place] [phone] Jan, Callus of foot L84 [place] [address] [facility] [id number] [address] [place] [phone] Jan, Moderate episode of recurren t major depressive disorder F33.1 [facility] [address] [facility] [id number] [address] [place] [phone] Jan, Moderate episode of recurren t major depressive disorder F33.1 [facility] [address] [facility] [id number] [address] [place] [phone] Dec, Moderate episode of recurren t major depressive disorder F33.1 [facility] [address] [facility] [id number] [address] [place] [phone] Dec, Candidiasis of the esophagus B37.81 [facility] [address] [facility] [id number] [address] [place] [id number] Dec, [facility] [address] [facility] [id number] [address] [place] [phone] Dec, Fecal occult blood test posi tive R19.5 and Anemia, unspecified type D64.9 [facility] [address] [facility] [id number] [address] [place] [phone] Nov, Stool color black K92.1 [facility] [address] [facility] [id number] [address] [place] [phone] Nov, Stool color black K92.1 [facility] [address] [facility] [id number] [address] [place] [phone] Nov, Stool color black K92.1 [facility] [address] [facility] [id number] [address] [place] [phone] Nov, [facility] [address] [facility] [id number] [address] [place] [phone] Nov, Moderate episode of recurren t major depressive disorder F33.1 [facility] [address] [facility] [id number] [address] [place] [phone] Oct, Moderate episode of recurren t major depressive disorder F33.1 [place] [address] [id number] [address] [place] [phone] 18 Oct, 2018 Callus of foot L84 and Contr olled type 2 diabetes mellitus without complication, without long-term current use of insulin E11.9 [place] [address] [id number] [address] [place] [phone] 10 Oct, 2018 Moderate episode of recurren t major depressive disorder F33.1 [place] [address] [id number] [address] [place] [phone] 17 Aug, 2018 Mood disorder F39 [place] [address] [id number] [address] [place] [phone] 05 Aug, 2018 Encounter for immunization Z 23 [place] [address] [id number] [address] [place] [phone] Jul, Moderate episode of recurren t major depressive disorder F33.1 [place] [address] [id number] [address] [place] [phone] Jul, Moderate episode of recurren t major depressive disorder F33.1 [place] [address] [id number] [address] [place] [phone] May, [place] [address] [id number] [address] [place] [phone] May, Moderate episode of recurren t major depressive disorder F33.1 [place] [address] [id number] [address] [place] [phone] May, Moderate episode of recurren t major depressive disorder F33.1 [place] [address] [id number] [address] [place] [id number] Apr, Benign prostatic hyperplasia with lower urinary tract symptoms N40.1 and Hesitancy of micturition R39.11 [place] [address] [id number] [address] [place] [phone] Apr, Moderate episode of recurren t major depressive disorder F33.1 [place] [address] [id number] [address] [place] [phone] Apr, Unspecified mood [affective] disorder F39 and Primary insomnia F51.01 [facility] [address] [facility] [id number] [address] [place] [phone] Apr, Primary insomnia F51.01 [facility] [address] [id number] [address] [place] [phone] March, Foot callus L84 [facility] [address] [facility] [id number] [address] [place] [phone] Feb, Medicare annual wellness vis it, initial Z00.00 [facility] [address] [facility] [id number] [address] [place] [phone] Feb, Acute superficial venous thr ombosis of left lower extremity I82.812 [facility] [address] [facility] [id number] [address] [place] [phone] Feb, [facility] [address] [facility] [id number] [address] [place] [phone] Feb, [facility] [address] [id number] [address] [place] [phone] Feb, Acute superficial venous thr ombosis of left lower extremity I82.812 [facility] [address] [facility] [id number] [address] [place] [phone] Feb, [facility] [address] [facility] [id number] [address] [place] [phone] Feb, Other specified soft tissue disorders M79.89 and Pain in left leg M79.605 [facility] [address] [facility] [id number] [address] [place] [phone] Jan, Obstructive sleep apnea G47. 33 [facility] [address] [facility] [id number] [address] [place] [phone] Dec, Obstructive sleep apnea G47. 33 and Mood disorder F39 [facility] [address] [facility] [id number] [address] [place] [phone] Dec, [facility] [address] [facility] [id number] [address] [place] [phone] Dec, [facility] [address] [facility] [id number] [address] [place] [phone] Nov, Diabetes type 2, controlled E11.9 [facility] [address] [facility] [id number] [address] [place] [phone] Nov, Encounter for immunization Z 23 [facility] [address] [facility] [id number] [address] [place] [phone] Nov, Primary insomnia F51.01 [facility] [address] [facility] [id number] [address] [place] [phone] 07 Oct, 2017 Medicare annual wellness vis it, subsequent Z00.00 and Mood disorder F39 [facility] [address] [facility] [id number] [address] [place] [phone] Sep, Mood disorder F39 [facility] [address] [facility] [id number] [address] [place] [phone] Aug, Primary insomnia F51.01 and Urinary hesitancy R39.11 [facility] [address] [facility] [id number] [address] [place] [phone] Aug, Primary insomnia F51.01 [facility] [address] [facility] [id number] [address] [place] [phone] Jul, Diabetes type 2, controlled E11.9 ; Primary insomnia F51.01 and Mood disorder F39 [facility] [address] [id number] [id number] Jun, Mood disorder F39 [facility] [address] [id number] LEODANMonika S [id number] Jun, [facility] [address] [facility] [id number] [address] [place] [phone] May, Nightmares F51.5 [facility] [address] [id number] [address] [place] [phone] May, Cognitive complaints R41.9 ; Unspecified mood [affective] disorder F39 and Primary insomnia F51.01 [facility] [address] [id number] [address] [place] [phone] Apr, Mood disorder F39 and Primar y insomnia F51.01 [facility] [address] [id number] [address] [place] [phone] Apr, Cognitive complaints R41.9 a nd Unspecified mood [affective] disorder F39 [facility] [address] [id number] [address] [place] [phone] Apr, Cognitive complaints R41.9 a nd Unspecified mood [affective] disorder F39 [facility] [address] [id number] [address] [place] [phone] March, [facility] [address] [id number] [address] [place] [phone] March, Diabetes type 2, controlled E11.9 and Essential hypertension I10 [facility] [address] [id number] [address] [place] [id number] March, Primary insomnia F51.01 ; Di abetes type 2, controlled E11.9 and Pain in right shoulder M25.511 [facility] [address] [id number] [address] [place] [phone] March, Cognitive complaints R41.9 a nd Unspecified mood [affective] disorder F39 [facility] [address] [id number] [address] [place] [phone] Feb, Other specified mental disor ders due to known physiological condition F06.8 [facility] [address] [id number] [address] [place] [phone] Jan, [facility] [address] [id number] [address] [place] [phone] Jan, [facility] [address] [id number] [address] [place] [phone] 24 Dec, 2016 Diabetes type 2, controlled E11.9 ; Hypertension, benign I10 and Mood disorder F39 [facility] [address] [id number] [address] [place] [id number] 08 Dec, 2016 Medicare annual wellness vis it, initial Z00.00 [facility] [address] [id number] [address] [place] [id number] 05 Nov, 2016 Medicare welcome exam Z00.00 ; Encounter for immunization Z23 ; Medicare annual wellness visit, initial Z00.00 and Medicare annual wellness visit, subsequent Z00.00 [facility] [address] [id number] [address] [place] [phone] Oct, [facility] [address] [id number] [address] [place] [phone] Sep, [facility] [address] [id number] [address] [place] [phone] Aug, Encounter for immunization Z 23 and Callus L84 [facility] [address] [id number] [address] [place] [phone] Aug, [facility] [address] [id number] [address] [place] [phone] Jul, Diabetes type 2, controlled E11.9 [facility] [address] [id number] [address] [place] [phone] Jul, Diabetes type 2, controlled E11.9 [facility] [address] [id number] [address] [place] [phone] Jun, [facility] [address] [id number] [address] [place] [phone] Jun, Hypertension, benign I10 ; M ood disorder F39 and Diabetes type 2, controlled E11.9 [facility] [address] [id number] [address] [place] [phone] Jun, Mood disorder F39 [facility] [address] [id number] [address] [place] [phone] May, [facility] [address] [id number] [address] [place] [phone] May, Mood disorder F39 [facility] [address] [id number] [address] [place] [id number] May, Mood disorder F39 [facility] [address] [id number] [address] [place] [id number] Apr, Controlled type 2 diabetes m [place] without complication, without long-term current use of insulin E11.9 ; Essential hypertension I10 and Pain in right shoulder M25.511 [facility] [address] [id number] [address] [place] [phone] Apr, Mood disorder F39 [facility] [address] [id number] [address] [place] [phone] Apr, Pre-op evaluation Z01.818 [facility] [address] [id number] [address] [place] [phone] March, Mood disorder F39 [facility] [address] [id number] [address] [place] [phone] Feb, [facility] [address] [id number] [address] [place] [id number] Feb, Shoulder pain, right M25.511 [facility] [address] [id number] [address] [place] [id number] Feb, Shoulder pain, right M25.511 [facility] [address] [id number] [address] [place] [id number] Feb, Shoulder pain, right M25.511 [facility] [address] [id number] [address] [place] [id number] Feb, Shoulder pain, right M25.511 [facility] [address] [id number] [address] [place] [phone] Jan, Shoulder pain, right M25.511 [place] [address] [id number] Jan, Shoulder pain, right M25.511 [place] [address] [id number] Jan, [place] [address] [phone] Jan, Diabetes type 2, controlled E11.9 [place] [address] [id number] Jan, Shoulder pain, right M25.511 ; Diabetes mellitus without mention of complication, type II or unspecified type, not stated as uncontrolled 250.00 and Diabetes type 2, controlled E11.9 [place] [address] [address] Jan, [place] [address] [address] Jan, [place] [address] [address] Dec, [place] [address] [address] Oct, Callus of foot L84 [place] [address] [address] Oct, Anxiety F41.9 ; Callus of fo ot L84 and Dysuria R30.0 [place] [address] [address] Sep, Diabetes mellitus without me ntion of complication, type II or unspecified type, not stated as uncontrolled 250.00 [place] [address] [address] Aug, Diabetes mellitus without me ntion of complication, type II or unspecified type, not stated as uncontrolled 250.00 [place] [address] [id number] Jul, [facility] [address] [id number] [address] [place] [phone] Jul, [facility] [address] [id number] [address] [place] [phone] Jul, Diabetes mellitus without me ntion of complication, type II or unspecified type, not stated as uncontrolled 250.00 ; Essential hypertension, benign 401.1 and Anxiety state, unspecified 300.00 [facility] [address] [id number] [address] [place] [phone] Jul, [facility] [address] [id number] [address] [place] [phone] Jun, [facility] [address] [id number] [address] [place] [phone] Jun, [facility] [address] [id number] [address] [place] [phone] May, [facility] [address] [id number] [address] [place] [id number] May, [facility] [address] [id number] [address] [place] [phone] Apr, [facility] [address] [facility] [id number] [address] [place] [phone] Apr, Mood disorder 296.90 [facility] [address] [id number] [address] [place] [phone] March, [facility] [address] [id number] [address] [place] [phone] Feb, [facility] [address] [id number] [address] [place] [phone] Feb, [facility] [address] [facility] [id number] [address] [place] [phone] Jan, [facility] [address] [id number] [address] [place] [phone] Jan, [facility] [address] [id number] [address] [place] [address], [place] [address] Jan, [facility] [address] [id number] [address] [place] [address], [place] [address] Jan, [facility] [address] [id number] [address] [place] [address], [place] [address] Jan, [facility] [address] [id number] [address] [place] [address], [place] [address] Jan, [facility] [address] [id number] [address] [place] [address], [place] [address] Jan, [facility] [address] [id number] [address] [place] [address], [place] [address] Jan, [facility] [address] [id number] [address] [place] [address], [place] [address] Dec, [facility] [address] [id number] [address] [place] [address], [place] [address] Dec, [facility] [address] [id number] [address] [place] [address], [place] [address] Nov, [facility] [address] [id number] [address] [place] [address], [place] [address] Nov, [facility] [address] [id number] [address] [place] [address], [place] [address] Nov, [facility] [address] [id number] [address] [place] [address], [place] [address] Nov, [facility] [address] [id number] [address] [place] [address], [place] [address] Oct, [facility] [address] [id number] [address] [place] [address], [place] [address] Oct, [facility] [address] [id number] [address] [place] [address], [place] [address] Oct, [facility] [address] [id number] [address] [place] [phone] 24 Oct, 2014 [facility] [address] [id number] [address] [place] [address], [place] [address] Oct, [facility] [address] [id number] [address] [place] [address], [place] [address] 24 Oct, 2014 [facility] [address] [id number] [address] [place] [address], [place] [address] 17 Oct, 2014 [facility] [address] [id number] [address] [place] [address], [place] [address] 17 Oct, 2014 [facility] [address] [id number] [address] [place] [address], [place] [address] 15 Oct, 2014 [facility] [address] [id number] [address] [place] [address], [place] [address] 15 Oct, 2014 [facility] [address] [id number] [address] [place] [address], [place] [address] 19 Sep, 2014 [facility] [address] [id number] [address] [place] [address], [place] [address] 19 Sep, 2014 [facility] [address] [id number] [address] [place] [address], [place] [address] 18 Sep, 2014 [facility] [address] [id number] [address] [place] [address], [place] [address] 18 Sep, 2014 [facility] [address] [id number] [address] [place] [address], [place] [address] 18 Sep, 2014 [facility] [address] [id number] [address] [place] [phone] 18 Sep, 2014 [facility] [address] [id number] [address] [place] [address], [place] [address] 16 Aug, 2014 [facility] [address] [id number] [address] [place] [address], [place] [address] 16 Aug, 2014 [facility] [address] [id number] [address] [place] [address], [place] [address] 19 Jul, 2014 [facility] [address] [id number] [facility] [place] [address] Jul, [facility] [address] [id number] [facility] [place] [address] Jun, [facility] [address] [id number] [address] [place] [address], [place] [address] Jun, [facility] [address] [id number] [address] [place] [address], [place] [address] May, [facility] [address] [id number] [address] [place] [address], [place] [address] May, [facility] [address] [id number] [address] [place] [address], [place] [address] Apr, [facility] [address] [id number] [address] [place] [address], [place] [address] Apr, [facility] [address] [id number] [address] [place] [address], [place] [address] Apr, [facility] [address] [id number] [address] [place] [address], [place] [address] Apr, [facility] [address] [id number] [address] [place] [address], [place] [address] March, [facility] [address] [id number] [address] [place] [address], [place] [address] March, [facility] [address] [id number] [address] [place] [address], [place] [address] Jan, [facility] [address] [id number] [address] [place] [address], [place] [address] Jan, [facility] [address] [id number] [address] [place] [address], [place] [address] Jan, [facility] [address] [id number] [address] [place] [address], [place] [address] Jan, [facility] [address] [id number] [address] [place] [address], [place] [address] Jan, [facility] [address] [id number] [address] [place] [address], [place] [address] Jan, [facility] [address] [id number] [address] [place] [address], [place] [address] Dec, [facility] [address] [id number] [address] [place] [address], [place] [address] Dec, [facility] [address] [id number] [address] [place] [address], [place] [address] Oct, [facility] [address] [id number] [address] [place] [address], [place] [address] Oct, [facility] [address] [id number] [address] [place] [address], [place] [address] Oct, [facility] [address] [id number] [address] [place] [address], [place] [address] Oct, [facility] [address] [id number] [address] [place] [address], [place] [address] Jul, [facility] [address] [id number] [address] [place] [address], [place] [address] Jul, [facility] [address] [id number] [address] [place] [address], [place] [address] Jul, [facility] [address] [id number] [address] [place] [address], [place] [address] Jun, [facility] [address] [id number] [address] [place] [address], [place] [address] Jun, [facility] [address] [id number] [address] [place] [address], [place] [address] May, [facility] [address] [id number] [address] [place] [address], [place] [address] May, [facility] [address] [id number] [address] [place] [address], [place] [address] March, [facility] [address] [id number] [address] [place] [address], [place] [address] March, [facility] [place] [address] [id number] [address] [place] [address], [place] [address] Feb, [facility] [address] [id number] [address] [place] [address], [place] [address] Feb, [facility] [address] [id number] [address] [place] [address], [place] [address] Jan, [facility] [address] [id number] [address] [place] [address], [place] [address] Dec, [facility] [address] [id number] [address] [place] [address], [place] [address] Dec, [facility] [address] [id number] [address] [place] [address], [place] [address] 15 Dec, 2012 [facility] [address] [id number] [address] [place] [address], [place] [address] Dec, [facility] [place] [address] [id number] [address] [place] [address], [place] [address] Dec, [facility] [address] [id number] [address] [place] [address], [place] [address] Nov, [facility] [place] [address] [id number] [address] [place] [id number] Oct, [facility] [address] [id number] [address] [place] [address], [place] [address] Oct, [facility] [address] [id number] [address] [place] [id number] Aug, [facility] [address] [id number] [address] [place] [address], [place] [address] Aug, [facility] [address] [id number] [address] [place] [address], [place] [address] Aug, [facility] [address] [id number] [address] [place] [phone] Aug, [facility] [address] [id number] [address] [place] [address], [place] [address] Aug, [facility] [address] [id number] [address] [place] [address], [place] [address] Jul, [facility] [address] [id number] [address] [place] [address], [place] [address] Jul, [facility] [address] [id number] [address] [place] [address], [place] [address] Jun, [facility] [address] [id number] [address] [place] [address], [place] [address] Jun, [facility] [address] [id number] [address] [place] [address], [place] [address] May, [facility] [address] [id number] [address] [place] [address], [place] [address] May, [facility] [address] [id number] [address] [place] [address], [place] [address] May, [facility] [address] [id number] [address] [place] [address], [place] [address] Apr, [facility] [address] [id number] [address] [place] [address], [place] [address] Apr, [facility] [address] [id number] [address] [place] [address], [place] [address] March, [facility] [address] [id number] [address] [place] [address], [place] [address] March, [facility] [address] [id number] [address] [place] [address], [place] [address] Feb, [facility] [address] [id number] [address] [place] [address], [place] [address] 17 Feb, 2012 [facility] [address] [id number] [address] [place] [address], [place] [address] Feb, [facility] [address] [id number] [address] [place] [address] [place] [address] Feb, IMMUNIZATIONS No Known Immunizations SOCIAL HISTORY Never Assessed REASON FOR VISIT PLAN OF CARE VITAL SIGNS MEDICATIONS Unknown Medications RESULTS No Results PROCEDURES No Known procedures INSTRUCTIONS MEDICATIONS ADMINISTERED No Known Medications MEDICAL (GENERAL) HISTORY Type Description Date Medical History Sleep apnea Medical History Type 2 diabetes Medical History mood disorder Medical History Mesothelioma Medical History Lumbago Medical History BPH (benign prostatic hyperplasia) Medical History Sleep apnea Medical History Gastritis Medical History Nightmares Medical History Emphysema Medical History COPD Surgical History cyst removal age 17 Surgical History Gastric Bipass Surgical History right rotator cuff 04/23/16 Hospitalization History stomach stapled 1979 Hospitalization History [facility] GI bleeding 12/2018
--- OUTSIDE RECORDS SUMMARY | 2020-06-17 08:39 | XMS REPORT ---
Author Author Barrie BUSTILLO Organization [facility] Address [address] [place] [address] Care Team Providers Care Banking Teacher Name Role Phone BARRIE BUSTILLO Unavailable PROBLEMS Type Condition ICD9-CM Code SAY12-PC Code Onset Dates Condition S tatus SNOMED Code Problem Primary insomnia F51.01 Active 397 2004 Problem Diabetes type 2, controlled E11.9 Ac tive 55347464 Problem Urinary hesitancy R39.11 Active 59 16303 Problem Essential hypertension I10 Active 20939810 Problem 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.1 Active 974101091 Problem Obstructive sleep apnea G47.33 Active 84023895 Problem Benign prostatic hyperplasia with lower urinary tract symptoms N40.1 Active 021121850 Problem Controlled type 2 diabetes m ellitus without complication, without long- term current use of insulin E11.9 Active 339061345 Problem 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 Acti ve 47747278 Problem Panlobular emphysema J43.1 Active 9073128 Problem Hesitancy of micturition R39.11 Activ e 4070070 Problem Chronic fatigue R53.82 Active 8422 9001 Problem Acute superficial venous thrombosis of left lower extremit y I82.812 Active 40249571111016745 Problem Uncontrolled type 2 diabetes mellitus with hyperglycemia E11.65 Active 572686799 Problem Arthritis M19.90 Active 3260764 Problem EMIR (obstructive sleep apnea) G47.33 Active 29589874 Problem Mood disorder F39 Active 950494 05 ALLERGIES No Information ENCOUNTERS Encounter Location Date Diagnosis [facility] [address] [facility] [id number] [address] [place] [phone] Jun, [facility] [address] [facility] [id number] [address] [place] [id number] Jun, [facility] [address] [facility] [id number] [address] [place] [phone] Jun, [facility] [address] [id number] [address] [place] [id number] Jun, Foot callus L84 [facility] [address] [id number] [address] [place] [id number] 16 May, 2020 Moderate episode of recurren t major depressive disorder F33.1 [place] [address] [facility] [id number] [address] [place] [id number] 03 May, 2020 [place] [address] [facility] [id number] [address] [place] [phone] 14 Apr, 2020 Encounter for screening labo ratory testing for COVID-19 virus Z11.59 [place] [address] [facility] [id number] [address] [place] [id number] 04 Apr, 2020 Moderate episode of recurren t major depressive disorder F33.1 [place] [address] [facility] [id number] [address] [place] [phone] March, Diabetes type 2, controlled E11.9 ; Family history of early CAD Z82.49 ; Chest pain on exertion R07.9 and Chronic fatigue R53.82 [place] [address] [id number] [address] [place] [phone] March, [place] [address] [id number] [address] [place] [phone] March, Moderate episode of recurren t major depressive disorder F33.1 [place] [address] [id number] [address] [place] [phone] March, Moderate episode of recurren t major depressive disorder F33.1 [place] [address] [id number] [address] [place] [phone] March, Foot callus L84 [facility] [address] [id number] [address] [place] [phone] March, Moderate episode of recurren t major depressive disorder F33.1 [place] [address] [id number] [address] [place] [phone] Jan, Foot callus L84 [facility] [address] [facility] [id number] [address] [place] [phone] 07 Dec, 2019 Moderate episode of recurren t major depressive disorder F33.1 [facility] [address] [facility] [id number] [address] [place] [id number] 04 Dec, 2019 Moderate episode of recurren t major depressive disorder F33.1 [facility] [address] [facility] [id number] [address] [place] [id number] 04 Dec, 2019 Moderate episode of recurren t major depressive disorder F33.1 [place] [address] [facility] [id number] [address] [place] [phone] 16 Nov, 2019 Panlobular emphysema J43.1 ; Mood disorder F39 and Controlled type 2 diabetes mellitus without complication, without long-term current use of insulin E11.9 [place] [address] [facility] [id number] [address] [place] [phone] Nov, [facility] [address] [facility] [id number] [address] [place] [phone] Nov, Increased sputum production R09.3 and EMIR (obstructive sleep apnea) G47.33 [place] [address] [facility] [id number] [address] [place] [phone] Oct, [facility] [address] [facility] [id number] [address] [place] [phone] Sep, [facility] [address] [facility] [id number] [address] [place] [phone] Sep, [facility] [address] [facility] [id number] [address] [place] [phone] Sep, [facility] [address] [facility] [id number] [address] [place] [phone] Aug, Moderate episode of recurren t major depressive disorder F33.1 [facility] [address] [facility] [id number] [address] [place] [id number] Aug, Moderate episode of recurren t major depressive disorder F33.1 [facility] [address] [id number] [address] [place] [phone] Aug, Moderate episode of recurren t major depressive disorder F33.1 [facility] [address] [id number] [address] [place] [phone] Jul, [facility] [address] [id number] [address] [place] [address] Jul, Foot callus L84 ; Uncontroll ed type 2 diabetes mellitus with hyperglycemia E11.65 ; Arthritis M19.90 ; Encounter for immunization Z23 ; Rib pain on right side R07.81 and Lumbar pain M54.5 [facility] [address] [id number] [address] [place] [phone] Jul, [facility] [address] [id number] [address] [place] [id number] Jun, [facility] [address] [id number] [address] [place] [phone] Jun, [facility] [address] [id number] [address] [place] [phone] Jun, Callus of foot L84 [facility] [address] [id number] [address] [place] [phone] Jun, [facility] [address] [id number] [address] [place] [id number] Apr, Exercise counseling Z71.82 [facility] [address] [id number] [address] [place] [id number] March, Moderate episode of recurren t major depressive disorder F33.1 [facility] [address] [id number] [address] [place] [phone] March, Moderate episode of recurren t major depressive disorder F33.1 [facility] [address] [id number] [address] [place] [id number] March, Exercise counseling Z71.82 [facility] [address] [id number] [address] [place] [phone] March, [facility] [address] [id number] [address] [place] [address] March, Exercise counseling Z71.82 [facility] [address] [id number] [address] [place] [id number] March, Right otitis media with effu yousuf H65.91 ; 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 and Diabetes type 2, controlled E11.9 [facility] [address] [id number] [address] [place] [id number] March, Moderate episode of recurren t major depressive disorder F33.1 [place] [address] [id number] [address] [place] [address] March, Exercise counseling Z71.82 [place] [address] [id number] [address] [place] [id number] March, Exercise counseling Z71.82 [place] [address] [id number] [address] [place] [id number] March, Callus of foot L84 [facility] [address] [id number] [address] [place] [id number] Feb, Moderate episode of recurren t major depressive disorder F33.1 [facility] [address] [id number] [address] [place] [id number] Feb, [facility] [address] [id number] [address] [place] [id number] Feb, Moderate episode of recurren t major depressive disorder F33.1 [facility] [address] [id number] [address] [place] [id number] Feb, Diabetes type 2, controlled E11.9 and Essential hypertension I10 [facility] [address] [id number] [address] [place] [phone] Jan, [facility] [address] [facility] [id number] [address] [place] [id number] 27 Jan, 2019 Callus of foot L84 [facility] [address] [facility] [id number] [address] [place] [id number] 18 Jan, 2019 Moderate episode of recurren t major depressive disorder F33.1 [facility] [address] [facility] [id number] [address] [place] [id number] 05 Jan, 2019 Moderate episode of recurren t major depressive disorder F33.1 [facility] [address] [facility] [id number] [address] [place] [id number] Dec, Moderate episode of recurren t major depressive disorder F33.1 [place] [address] [facility] [id number] [address] [place] [id number] 11 Dec, 2018 Candidiasis of the esophagus B37.81 [place] [address] [facility] [id number] [address] [place] [id number] 08 Dec, 2018 [facility] [address] [facility] [id number] [address] [place] [id number] 04 Dec, 2018 Fecal occult blood test posi tive R19.5 and Anemia, unspecified type D64.9 [facility] [address] [facility] [id number] [address] [place] [phone] Nov, Stool color black K92.1 [facility] [address] [facility] [id number] [address] [place] [id number] Nov, Stool color black K92.1 [facility] [address] [facility] [id number] [address] [place] [id number] Nov, Stool color black K92.1 [facility] [address] [facility] [id number] [address] [place] [id number] Nov, [facility] [address] [facility] [id number] [address] [place] [phone] Nov, Moderate episode of recurren t major depressive disorder F33.1 [facility] [address] [id number] [address] [place] [id number] Oct, Moderate episode of recurren t major depressive disorder F33.1 [facility] [address] [id number] [address] [place] [id number] 18 Oct, 2018 Callus of foot L84 and Contr olled type 2 diabetes mellitus without complication, without long-term current use of insulin E11.9 [place] [address] [id number] [address] [place] [phone] 10 Oct, 2018 Moderate episode of recurren t major depressive disorder F33.1 [place] [address] [id number] [address] [place] [id number] Aug, Mood disorder F39 [place] [address] [facility] [id number] [address] [place] [id number] 05 Aug, 2018 Encounter for immunization Z 23 [facility] [address] [id number] [address] [place] [phone] Jul, Moderate episode of recurren t major depressive disorder F33.1 [place] [id number] [id number] [address] [place] [id number] Jul, Moderate episode of recurren t major depressive disorder F33.1 [place] [id number] [id number] [address] [place] [id number] May, [place] [address] [id number] [address] [place] [id number] May, Moderate episode of recurren t major depressive disorder F33.1 [facility] [address] [id number] [address] [place] [phone] May, Moderate episode of recurren t major depressive disorder F33.1 [place] [address] [id number] [address] [place] [id number] Apr, Benign prostatic hyperplasia with lower urinary tract symptoms N40.1 and Hesitancy of micturition R39.11 [place] [address] [id number] [address] [place] [address] Apr, Moderate episode of recurren t major depressive disorder F33.1 [facility] [address] [id number] [address] [place] [id number] Apr, Unspecified mood [affective] disorder F39 and Primary insomnia F51.01 [facility] [address] [id number] [address] [place] [phone] Apr, Primary insomnia F51.01 [facility] [address] [id number] [address] [place] [id number] March, Foot callus L84 [place] [address] [facility] [id number] [address] [place] [id number] Feb, Medicare annual wellness vis it, initial Z00.00 [facility] [address] [facility] [id number] [address] [place] [id number] Feb, Acute superficial venous thr ombosis of left lower extremity I82.812 [facility] [address] [facility] [id number] [address] [place] [id number] Feb, [facility] [address] [id number] [address] [place] [id number] Feb, [facility] [address] [facility] [id number] [address] [place] [id number] Feb, Acute superficial venous thr ombosis of left lower extremity I82.812 [facility] [address] [id number] [address] [place] [id number] Feb, [facility] [address] [id number] [address] [place] [address] Feb, Other specified soft tissue disorders M79.89 and Pain in left leg M79.605 [facility] [address] [facility] [id number] [address] [place] [id number] Jan, Obstructive sleep apnea G47. 33 [facility] [address] [facility] [id number] [address] [place] [id number] Dec, Obstructive sleep apnea G47. 33 and Mood disorder F39 [facility] [address] [facility] [id number] [address] [place] [id number] Dec, [facility] [address] [facility] [id number] [address] [place] [id number] Dec, [facility] [address] [facility] [id number] [address] [place] [id number] Nov, Diabetes type 2, controlled E11.9 [facility] [address] [facility] [id number] [address] [place] [id number] Nov, Encounter for immunization Z 23 [facility] [address] [facility] [id number] [address] [place] [id number] Nov, Primary insomnia F51.01 [place] [address] [facility] [id number] [address] [place] [id number] Oct, Medicare annual wellness vis it, subsequent Z00.00 and Mood disorder F39 [facility] [address] [facility] [id number] [address] [place] [phone] Sep, Mood disorder F39 [place] [address] [facility] [id number] [address] [place] [address] Aug, Primary insomnia F51.01 and Urinary hesitancy R39.11 [place] [address] [facility] [id number] [address] [place] [address] Aug, Primary insomnia F51.01 [facility] [address] [facility] [id number] [address] [place] [id number] Jul, Diabetes type 2, controlled E11.9 ; Primary insomnia F51.01 and Mood disorder F39 [facility] [address] [id number] [id number] Jun, Mood disorder F39 [facility] [address] [id number] [id number] Jun, [facility] [address] [facility] [id number] [address] [place] [address] May, Nightmares F51.5 [facility] [address] [id number] [address] [place] [address] May, Cognitive complaints R41.9 ; Unspecified mood [affective] disorder F39 and Primary insomnia F51.01 [facility] [address] [id number] [address] [place] [address] Apr, Mood disorder F39 and Primar y insomnia F51.01 [facility] [address] [id number] [address] [place] [id number] Apr, Cognitive complaints R41.9 a nd Unspecified mood [affective] disorder F39 [facility] [address] [id number] [address] [place] [address] Apr, Cognitive complaints R41.9 a nd Unspecified mood [affective] disorder F39 [facility] [address] [id number] [address] [place] [address] March, [facility] [address] [id number] [address] [place] [id number] March, Diabetes type 2, controlled E11.9 and Essential hypertension I10 [facility] [address] [id number] [address] [place] [address] March, Primary insomnia F51.01 ; Di abetes type 2, controlled E11.9 and Pain in right shoulder M25.511 [facility] [address] [id number] [address] [place] [address] March, Cognitive complaints R41.9 a nd Unspecified mood [affective] disorder F39 [facility] [address] [id number] [address] [place] [address] Feb, Other specified mental disor ders due to known physiological condition F06.8 [facility] [address] [id number] [address] [place] [id number] Jan, [facility] [address] [id number] [address] [place] [id number] Jan, [facility] [address] [facility] [id number] [address] [place] [id number] Dec, Diabetes type 2, controlled E11.9 ; Hypertension, benign I10 and Mood disorder F39 [place] [id number] [facility] [id number] [address] [place] [id number] 08 Dec, 2016 Medicare annual wellness vis it, initial Z00.00 [place] [address] [facility] [id number] [address] [place] [address] Nov, Medicare welcome exam Z00.00 ; Encounter for immunization Z23 ; Medicare annual wellness visit, initial Z00.00 and Medicare annual wellness visit, subsequent Z00.00 [place] [address] [facility] [id number] [address] [place] [address] Oct, [place] [address] [facility] [id number] [address] [place] [address] Sep, [place] [address] [facility] [id number] [address] [place] [id number] Aug, Encounter for immunization Z 23 and Callus L84 [place] [address] [facility] [id number] [address] [place] [id number] Aug, [place] [address] [place] [id number] [address] [place] [id number] Jul, Diabetes type 2, controlled E11.9 [place] [address] [facility] [id number] [address] [place] [address] Jul, Diabetes type 2, controlled E11.9 [place] [address] [facility] [id number] [address] [place] [address] Jun, [place] [address] [place] [id number] [address] [place] [id number] Jun, Hypertension, benign I10 ; M ood disorder F39 and Diabetes type 2, controlled E11.9 [place] [address] [facility] [id number] [address] [place] [id number] Jun, Mood disorder F39 [facility] [address] [id number] [address] [place] [id number] May, [facility] [address] [id number] [address] [place] [address] May, Mood disorder F39 [facility] [address] [id number] [address] [place] [address] May, Mood disorder F39 [facility] [address] [id number] [address] [place] [address] Apr, Controlled type 2 diabetes m ellitus without complication, without long-term current use of insulin E11.9 ; Essential hypertension I10 and Pain in right shoulder M25.511 [facility] [address] [id number] [address] [place] [address] Apr, Mood disorder F39 [facility] [address] [id number] [address] [place] [address] Apr, Pre-op evaluation Z01.818 [facility] [address] [id number] [address] [place] [id number] March, Mood disorder F39 [facility] [address] [id number] [address] [place] [address] Feb, [facility] [address] [id number] [address] [place] [address] Feb, Shoulder pain, right M25.511 [facility] [address] [id number] [address] [place] [address] Feb, Shoulder pain, right M25.511 [facility] [address] [id number] [address] [place] [address] Feb, Shoulder pain, right M25.511 [facility] [address] [id number] [address] [place] [address] Feb, Shoulder pain, right M25.511 [facility] [address] [id number] [address] [place] [id number] 30 Jan, 2016 Shoulder pain, right M25.511 [place] [address] [place] [id number] [place] [address] Jan, Shoulder pain, right M25.511 [place] [address] [id number] 16 Jan, 2016 [place] [address] [place] [id number] [place] [address] Jan, Diabetes type 2, controlled E11.9 [place] [address] [place] [id number] [place] [address] Jan, Shoulder pain, right M25.511 ; Diabetes mellitus without mention of complication, type II or unspecified type, not stated as uncontrolled 250.00 and Diabetes type 2, controlled E11.9 [place] [address] [address] Jan, [place] [address] [address] Jan, [place] [address] [id number] Dec, [place] [address] [address] Oct, Callus of foot L84 [place] [address] [address] Oct, Anxiety F41.9 ; Callus of fo ot L84 and Dysuria R30.0 [place] [address] [place] [id number] [place] [address] Sep, Diabetes mellitus without me ntion of complication, type II or unspecified type, not stated as uncontrolled 250.00 [place] [address] [place] [id number] [place] [address] Aug, Diabetes mellitus without me ntion of complication, type II or unspecified type, not stated as uncontrolled 250.00 [facility] [address] [id number] [address] [place] [id number] Jul, [facility] [address] [id number] [address] [place] [phone] Jul, [facility] [address] [id number] [address] [place] [address] Jul, Diabetes mellitus without me ntion of complication, type II or unspecified type, not stated as uncontrolled 250.00 ; Essential hypertension, benign 401.1 and Anxiety state, unspecified 300.00 [facility] [address] [id number] [address] [place] [address] Jul, [facility] [address] [id number] [address] [place] [id number] Jun, [facility] [address] [id number] [address] [place] [id number] Jun, [facility] [address] [id number] [address] [place] [id number] May, [facility] [address] [id number] [address] [place] [id number] May, [facility] [address] [id number] [address] [place] [id number] Apr, [facility] [address] [id number] [address] [place] [id number] Apr, Mood disorder 296.90 [facility] [address] [id number] [address] [place] [id number] March, [facility] [address] [id number] [address] [place] [id number] Feb, [facility] [address] [id number] [address] [place] [id number] Feb, [facility] [address] [id number] [address] [place] [id number] Jan, [facility] [address] [id number] [address] [place] [address], [place] [id number] Jan, [facility] [address] [id number] [address] [place] [address], [place] [id number] Jan, [facility] [address] [id number] [address] [place] [address], [place] [id number] Jan, [facility] [address] [id number] [address] [place] [address], [place] [id number] Jan, [facility] [address] [id number] [address] [place] [address], [place] [id number] Jan, [facility] [address] [id number] [address] [place] [address], [place] [id number] Jan, [facility] [address] [id number] [address] [place] [address], [place] [id number] Jan, [facility] [address] [id number] [address] [place] [address], [place] [id number] Dec, [facility] [address] [id number] [address] [place] [address], [place] [id number] Dec, [facility] [address] [id number] [address] [place] [address], [place] [id number] Nov, [facility] [address] [id number] [address] [place] [address], [place] [id number] Nov, [facility] [address] [id number] [address] [place] [address], [place] [id number] Nov, [facility] [address] [id number] [address] [place] [address], [place] [id number] Nov, [facility] [address] [id number] [address] [place] [address], [place] [id number] Oct, [facility] [address] [id number] [address] [place] [address], [place] [id number] Oct, [facility] [address] [id number] [address] [place] [address], [place] [id number] 24 Oct, 2014 [facility] [address] [id number] [address] [place] [address], [place] [id number] 24 Oct, 2014 [facility] [address] [id number] [address] [place] [address], [place] [id number] 24 Oct, 2014 [facility] [address] [id number] [address] [place] [address], [place] [id number] Oct, [facility] [address] [id number] [address] [place] [address], [place] [id number] 17 Oct, 2014 [facility] [address] [id number] [address] [place] [address], [place] [id number] 17 Oct, 2014 [facility] [address] [id number] [address] [place] [address], [place] [id number] 15 Oct, 2014 [facility] [address] [id number] [address] [place] [address], [place] [id number] 15 Oct, 2014 [facility] [address] [id number] [address] [place] [address], [place] [id number] 19 Sep, 2014 [facility] [address] [id number] [address] [place] [address], [place] [id number] 19 Sep, 2014 [facility] [address] [id number] [address] [place] [address], [place] [id number] 18 Sep, 2014 [facility] [address] [id number] [address] [place] [address], [place] [id number] 18 Sep, 2014 [facility] [address] [id number] [address] [place] [address], [place] [id number] 18 Sep, 2014 [facility] [address] [id number] [address] [place] [address], [place] [id number] 18 Sep, 2014 [facility] [address] [id number] [address] [place] [address], [place] [id number] 16 Aug, 2014 [facility] [address] [id number] [address] [place] [address], [place] [id number] 16 Aug, 2014 [facility] [address] [id number] [facility] [place] [id number] Jul, [facility] [address] [id number] [address] [place] [address], [place] [id number] Jul, [facility] [address] [id number] [address] [place] [address], [place] [id number] Jun, [facility] [address] [id number] [address] [place] [address], [place] [id number] Jun, [facility] [address] [id number] [address] [place] [address], [place] [id number] May, [facility] [address] [id number] [address] [place] [address], [place] [id number] May, [facility] [address] [id number] [address] [place] [address], [place] [id number] Apr, [facility] [address] [id number] [address] [place] [address], [place] [id number] Apr, [facility] [address] [id number] [address] [place] [address], [place] [id number] Apr, [facility] [address] [id number] [address] [place] [address], [place] [id number] Apr, [facility] [address] [id number] [address] [place] [address], [place] [id number] March, [facility] [address] [id number] [address] [place] [address], [place] [id number] March, [facility] [address] [id number] [address] [place] [address], [place] [id number] Jan, [facility] [address] [id number] [address] [place] [address], [place] [id number] Jan, [facility] [address] [id number] [address] [place] [address], [place] [id number] Jan, [facility] [address] [id number] [address] [place] [address], [place] [id number] Jan, [facility] [address] [id number] [address] [place] [address], [place] [id number] Jan, [facility] [address] [id number] [address] [place] [address], [place] [id number] Jan, [facility] [address] [id number] [address] [place] [address], [place] [id number] Dec, [facility] [address] [id number] [address] [place] [address], [place] [id number] Dec, [facility] [address] [id number] [address] [place] [address], [place] [id number] Oct, [facility] [address] [id number] [address] [place] [address], [place] [id number] Oct, [facility] [address] [id number] [address] [place] [address], [place] [id number] Oct, [facility] [address] [id number] [address] [place] [address], [place] [id number] Oct, [facility] [address] [id number] [address] [place] [address], [place] [id number] Jul, [facility] [address] [id number] [address] [place] [address], [place] [id number] Jul, [facility] [address] [id number] [address] [place] [address], [place] [id number] Jul, [facility] [address] [id number] [address] [place] [address], [place] [id number] Jun, [facility] [address] [id number] [address] [place] [address], [place] [id number] Jun, [facility] [address] [id number] [address] [place] [address], [place] [id number] May, [facility] [address] [id number] [address] [place] [address], [place] [id number] May, [facility] [address] [id number] [address] [place] [address], [place] [id number] March, [facility] [address] [id number] [address] [place] [address], [place] [id number] March, [facility] [address] [id number] [address] [place] [address], [place] [id number] Feb, [facility] [address] [id number] [address] [place] [address], [place] [id number] Feb, [facility] [address] [id number] [address] [place] [address], [place] [id number] Jan, [facility] [address] [id number] [address] [place] [address], [place] [id number] Dec, [facility] [address] [id number] [address] [place] [address], [place] [id number] Dec, [facility] [address] [id number] [address] [place] [address], [place] [id number] 15 Dec, 2012 [facility] [address] [id number] [address] [place] [address], [place] [id number] 14 Dec, 2012 [facility] [address] [id number] [address] [place] [address], [place] [id number] Dec, [facility] [address] [id number] [address] [place] [address], [place] [id number] Nov, [facility] [address] [id number] [address] [place] [address], [place] [id number] Oct, [facility] [address] [id number] [address] [place] [address], [place] [id number] Oct, [facility] [address] [id number] [address] [place] [address], [place] [id number] Aug, [facility] [address] [id number] [address] [place] [address], [place] [id number] Aug, [facility] [address] [id number] [address] [place] [id number] Aug, [facility] [address] [id number] [address] [place] [address], [place] [id number] Aug, [facility] [address] [id number] [address] [place] [address], [place] [id number] Aug, [facility] [address] [id number] [address] [place] [address], [place] [id number] Jul, [facility] [address] [id number] [address] [place] [address], [place] [id number] Jul, [facility] [address] [id number] [address] [place] [address], [place] [id number] Jun, [facility] [address] [id number] [address] [place] [address], [place] [id number] Jun, [facility] [address] [id number] [address] [place] [address], [place] [id number] May, [facility] [address] [id number] [address] [place] [address], [place] [id number] May, [facility] [address] [id number] [address] [place] [address], [place] [id number] May, [facility] [address] [id number] [address] [place] [address], [place] [id number] Apr, [facility] [address] [id number] [address] [place] [address], [place] [id number] Apr, [facility] [address] [id number] [address] [place] [address], [place] [id number] March, [facility] [address] [id number] [address] [place] [address], [place] [id number] March, [facility] [address] [id number] [address] [place] [address], [place] [id number] Feb, [facility] [address] [id number] [address] [place] [address], [place] [id number] Feb, [facility] [address] [id number] [address] [place] [id number] Feb, [facility] [address] [facility] [id number] [address] [place] [id number] Feb, IMMUNIZATIONS No Known Immunizations SOCIAL HISTORY Never Assessed REASON FOR VISIT PLAN OF CARE VITAL SIGNS Height 71 in 2013-03-15 Weight 246.19 lbs 2013-03-15 Temperature 97.2 degrees Fahrenheit 2013-03-15 Heart Rate 72 bpm 2013-03-15 Respiratory Rate 18 2013-03-15 Blood pressure systolic 112 mmHg 2013-03-15 Blood pressure diastolic 83 mmHg 2013-03-15 MEDICATIONS Unknown Medications RESULTS No Results PROCEDURES Procedure Date Ordered Result Body Site GLYCATED HEMOGLOBIN TEST March 15, 2013 INSTRUCTIONS MEDICATIONS ADMINISTERED No Known Medications MEDICAL [...] Hospitalization History stomach stapled 1979 Hospitalization History [facility] GI bleeding 12/2018
--- OUTSIDE RECORDS SUMMARY | 2020-06-17 08:39 | XMS REPORT ---
Author Author Barrie BUSTILLO Organization [facility] Address [address] [place] [address] Care Team Providers Care General Merchandise Salesperson Name Role Phone BARRIE BUSTILLO Unavailable PROBLEMS Type Condition ICD9-CM Code ERO26-IN Code Onset Dates Condition S tatus SNOMED Code Problem Primary insomnia F51.01 Active 397 2004 Problem Diabetes type 2, controlled E11.9 Ac tive 38976433 Problem Urinary hesitancy R39.11 Active 59 33977 Problem Essential hypertension I10 Active 58628070 Problem 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.1 Active 241854691 Problem Obstructive sleep apnea G47.33 Active 33397828 Problem Benign prostatic hyperplasia with lower urinary tract symptoms N40.1 Active 027638195 Problem Controlled type 2 diabetes m ellitus without complication, without long- term current use of insulin E11.9 Active 664045101 Problem 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 Acti ve 11091883 Problem Panlobular emphysema J43.1 Active 5634072 Problem Hesitancy of micturition R39.11 Activ e 3287174 Problem Chronic fatigue R53.82 Active 8422 9001 Problem Acute superficial venous thrombosis of left lower extremit y I82.812 Active [id number] Problem Uncontrolled type 2 diabetes mellitus with hyperglycemia E11.65 Active 273634152 Problem Arthritis M19.90 Active 6793848 Problem EMIR (obstructive sleep apnea) G47.33 Active 58373135 Problem Mood disorder F39 Active 108633 05 ALLERGIES No Information ENCOUNTERS Encounter Location Date Diagnosis [facility] [address] [facility] [id number] [address] [place] [phone] Jun, [facility] [address] [facility] [id number] [address] [place] [phone] Jun, [facility] [address] [facility] [id number] [address] [place] [phone] Jun, [place] [address] [id number] [address] [place] [phone] 16 May, 2020 Moderate episode of recurren t major depressive disorder F33.1 [place] [address] [id number] [address] [place] [phone] 03 May, 2020 [place] [address] [facility] [id number] [address] [place] [phone] 14 Apr, 2020 Encounter for screening labo ratory testing for COVID-19 virus Z11.59 [place] [address] [id number] [address] [place] [phone] 04 Apr, 2020 Moderate episode of recurren t major depressive disorder F33.1 [place] [address] [facility] [id number] [address] [place] [phone] 29 Mar, 2020 Diabetes type 2, controlled E11.9 ; Family history of early CAD Z82.49 ; Chest pain on exertion R07.9 and Chronic fatigue R53.82 [place] [address] [id number] [address] [place] [phone] March, [place] [address] [id number] [address] [place] [phone] March, Moderate episode of recurren t major depressive disorder F33.1 [place] [address] [facility] [id number] [address] [place] [address] March, Moderate episode of recurren t major depressive disorder F33.1 [place] [address] [id number] [address] [place] [phone] March, Foot callus L84 [place] [address] [id number] [address] [place] [phone] March, Moderate episode of recurren t major depressive disorder F33.1 [place] [address] [id number] [address] [place] [phone] Jan, Foot callus L84 [place] [address] [facility] [id number] [address] [place] [phone] 07 Dec, 2019 Moderate episode of recurren t major depressive disorder F33.1 [facility] [address] [id number] [address] [place] [id number] 04 Dec, 2019 Moderate episode of recurren t major depressive disorder F33.1 [facility] [address] [id number] [address] [place] [phone] 04 Dec, 2019 Moderate episode of recurren t major depressive disorder F33.1 [facility] [address] [id number] [address] [place] [phone] 16 Nov, 2019 Panlobular emphysema J43.1 ; Mood disorder F39 and Controlled type 2 diabetes mellitus without complication, without long-term current use of insulin E11.9 [facility] [address] [id number] [address] [place] [phone] Nov, [place] [address] [facility] [id number] [address] [place] [phone] Nov, Increased sputum production R09.3 and EMIR (obstructive sleep apnea) G47.33 [facility] [address] [id number] [address] [place] [phone] Oct, [facility] [address] [id number] [address] [place] [phone] Sep, [facility] [address] [id number] [address] [place] [phone] Sep, [facility] [address] [id number] [address] [place] [phone] Sep, [facility] [address] [id number] [address] [place] [phone] Aug, Moderate episode of recurren t major depressive disorder F33.1 [facility] [address] [id number] [address] [place] [address] Aug, Moderate episode of recurren t major depressive disorder F33.1 [facility] [address] [id number] [address] [place] [phone] Aug, Moderate episode of recurren t major depressive disorder F33.1 [facility] [address] [id number] [address] [place] [address] Jul, [facility] [address] [id number] [address] [place] [address] Jul, Foot callus L84 ; Uncontroll ed type 2 diabetes mellitus with hyperglycemia E11.65 ; Arthritis M19.90 ; Encounter for immunization Z23 ; Rib pain on right side R07.81 and Lumbar pain M54.5 [facility] [address] [id number] [address] [place] [address] Jul, [facility] [address] [id number] [address] [place] [id number] Jun, [facility] [address] [id number] [address] [place] [address] Jun, [facility] [address] [id number] [address] [place] [phone] Jun, Callus of foot L84 [facility] [address] [id number] [address] [place] [phone] Jun, [facility] [address] [id number] [address] [place] [address] Apr, Exercise counseling Z71.82 [facility] [address] [id number] [address] [place] [address] March, Moderate episode of recurren t major depressive disorder F33.1 [facility] [address] [id number] [address] [place] [address] March, Moderate episode of recurren t major depressive disorder F33.1 [facility] [address] [id number] [address] [place] [address] March, Exercise counseling Z71.82 [facility] [address] [id number] [address] [place] [address] March, [facility] [address] [id number] [address] [place] [address] March, Exercise counseling Z71.82 [facility] [address] [id number] [address] [place] [address] March, Right otitis media with effu yousuf H65.91 ; 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 and Diabetes type 2, controlled E11.9 [place] [address] [id number] [address] [place] [address] March, Moderate episode of recurren t major depressive disorder F33.1 [place] [address] [id number] [address] [place] [phone] March, Exercise counseling Z71.82 [place] [address] [facility] [id number] [address] [place] [address] March, Exercise counseling Z71.82 [place] [address] [id number] [address] [place] [address] March, Callus of foot L84 [place] [address] [id number] [address] [place] [address] Feb, Moderate episode of recurren t major depressive disorder F33.1 [place] [address] [id number] [address] [place] [address] Feb, [place] [address] [id number] [address] [place] [phone] Feb, Moderate episode of recurren t major depressive disorder F33.1 [facility] [address] [id number] [address] [place] [address] Feb, Diabetes type 2, controlled E11.9 and Essential hypertension I10 [facility] [address] [id number] [address] [place] [address] Jan, [facility] [address] [facility] [id number] [address] [place] [phone] Jan, Callus of foot L84 [place] [address] [facility] [id number] [address] [place] [phone] Jan, Moderate episode of recurren t major depressive disorder F33.1 [facility] [address] [facility] [id number] [address] [place] [phone] Jan, Moderate episode of recurren t major depressive disorder F33.1 [facility] [address] [facility] [id number] [address] [place] [address] Dec, Moderate episode of recurren t major depressive disorder F33.1 [facility] [address] [facility] [id number] [address] [place] [address] Dec, Candidiasis of the esophagus B37.81 [facility] [address] [facility] [id number] [address] [place] [phone] Dec, [facility] [address] [facility] [id number] [address] [place] [phone] Dec, Fecal occult blood test posi tive R19.5 and Anemia, unspecified type D64.9 [facility] [address] [facility] [id number] [address] [place] [address] Nov, Stool color black K92.1 [facility] [address] [facility] [id number] [address] [place] [phone] Nov, Stool color black K92.1 [facility] [address] [facility] [id number] [address] [place] [phone] Nov, Stool color black K92.1 [facility] [address] [facility] [id number] [address] [place] [address] Nov, [facility] [address] [facility] [id number] [address] [place] [phone] Nov, Moderate episode of recurren t major depressive disorder F33.1 [facility] [address] [facility] [id number] [address] [place] [phone] Oct, Moderate episode of recurren t major depressive disorder F33.1 [place] [address] [id number] [address] [place] [id number] 18 Oct, 2018 Callus of foot L84 and Contr olled type 2 diabetes mellitus without complication, without long-term current use of insulin E11.9 [place] [address] [id number] [address] [place] [address] 10 Oct, 2018 Moderate episode of recurren t major depressive disorder F33.1 [place] [address] [id number] [address] [place] [phone] 17 Aug, 2018 Mood disorder F39 [place] [address] [id number] [address] [place] [id number] 05 Aug, 2018 Encounter for immunization Z 23 [place] [address] [id number] [address] [place] [address] Jul, Moderate episode of recurren t major depressive disorder F33.1 [place] [address] [id number] [address] [place] [phone] Jul, Moderate episode of recurren t major depressive disorder F33.1 [place] [address] [id number] [address] [place] [address] May, [place] [address] [id number] [address] [place] [phone] May, Moderate episode of recurren t major depressive disorder F33.1 [place] [address] [id number] [address] [place] [address] May, Moderate episode of recurren t major depressive disorder F33.1 [place] [address] [id number] [address] [place] [phone] Apr, Benign prostatic hyperplasia with lower urinary tract symptoms N40.1 and Hesitancy of micturition R39.11 [place] [address] [id number] [address] [place] [address] Apr, Moderate episode of recurren t major depressive disorder F33.1 [place] [address] [id number] [address] [place] [address] Apr, Unspecified mood [affective] disorder F39 and Primary insomnia F51.01 [facility] [address] [facility] [id number] [address] [place] [address] Apr, Primary insomnia F51.01 [facility] [address] [id number] [address] [place] [address] March, Foot callus L84 [facility] [address] [facility] [id number] [address] [place] [address] Feb, Medicare annual wellness vis it, initial Z00.00 [facility] [address] [facility] [id number] [address] [place] [address] Feb, Acute superficial venous thr ombosis of left lower extremity I82.812 [facility] [address] [facility] [id number] [address] [place] [phone] Feb, [facility] [address] [facility] [id number] [address] [place] [address] Feb, [facility] [address] [id number] [address] [place] [address] Feb, Acute superficial venous thr ombosis of left lower extremity I82.812 [facility] [address] [facility] [id number] [address] [place] [address] Feb, [facility] [address] [facility] [id number] [address] [place] [address] Feb, Other specified soft tissue disorders M79.89 and Pain in left leg M79.605 [facility] [address] [facility] [id number] [address] [place] [phone] Jan, Obstructive sleep apnea G47. 33 [facility] [address] [facility] [id number] [address] [place] [address] Dec, Obstructive sleep apnea G47. 33 and Mood disorder F39 [facility] [address] [facility] [id number] [address] [place] [address] Dec, [facility] [address] [facility] [id number] [address] [place] [phone] Dec, [facility] [address] [facility] [id number] [address] [place] [phone] Nov, Diabetes type 2, controlled E11.9 [facility] [address] [facility] [id number] [address] [place] [phone] Nov, Encounter for immunization Z 23 [facility] [address] [facility] [id number] [address] [place] [address] Nov, Primary insomnia F51.01 [facility] [address] [facility] [id number] [address] [place] [phone] 07 Oct, 2017 Medicare annual wellness vis it, subsequent Z00.00 and Mood disorder F39 [facility] [address] [facility] [id number] [address] [place] [address] Sep, Mood disorder F39 [facility] [address] [facility] [id number] [address] [place] [address] Aug, Primary insomnia F51.01 and Urinary hesitancy R39.11 [facility] [address] [facility] [id number] [address] [place] [address] Aug, Primary insomnia F51.01 [facility] [address] [facility] [id number] [address] [place] [address] Jul, Diabetes type 2, controlled E11.9 ; Primary insomnia F51.01 [address] F[address] [facility] [address] [id number] [id number] Jun, Mood disorder F39 [facility] [address] [id number] LEODANMonika S [id number] Jun, [facility] [address] [facility] [id number] [address] [place] [address] May, Nightmares F51.5 [facility] [address] [id number] [address] [place] [address] May, Cognitive complaints R41.9 ; Unspecified mood [affective] disorder F39 and Primary insomnia F51.01 [facility] [address] [id number] [address] [place] [address] Apr, Mood disorder F39 and Primar y insomnia F51.01 [facility] [address] [id number] [address] [place] [address] Apr, Cognitive complaints R41.9 a nd Unspecified mood [affective] disorder F39 [facility] [address] [id number] [address] [place] [address] Apr, Cognitive complaints R41.9 a nd Unspecified mood [affective] disorder F39 [facility] [address] [id number] [address] [place] [address] March, [facility] [address] [id number] [address] [place] [address] March, Diabetes type 2, controlled E11.9 and Essential hypertension I10 [facility] [address] [id number] [address] [place] [address] March, Primary insomnia F51.01 ; Di abetes type 2, controlled E11.9 and Pain in right shoulder M25.511 [facility] [address] [id number] [address] [place] [address] March, Cognitive complaints R41.9 a nd Unspecified mood [affective] disorder F39 [facility] [address] [id number] [address] [place] [address] Feb, Other specified mental disor ders due to known physiological condition F06.8 [facility] [address] [id number] [address] [place] [address] Jan, [facility] [address] [id number] [address] [place] [address] Jan, [facility] [address] [id number] [address] [place] [address] 24 Dec, 2016 Diabetes type 2, controlled E11.9 ; Hypertension, benign I10 and Mood disorder F39 [facility] [address] [id number] [address] [place] [address] 08 Dec, 2016 Medicare annual wellness vis it, initial Z00.00 [facility] [address] [id number] [address] [place] [address] 05 Nov, 2016 Medicare welcome exam Z00.00 ; Encounter for immunization Z23 ; Medicare annual wellness visit, initial Z00.00 and Medicare annual wellness visit, subsequent Z00.00 [facility] [address] [id number] [address] [place] [address] Oct, [facility] [address] [id number] [address] [place] [address] Sep, [facility] [address] [id number] [address] [place] [address] Aug, Encounter for immunization Z 23 and Callus L84 [facility] [address] [id number] [address] [place] [address] Aug, [facility] [address] [id number] [address] [place] [address] Jul, Diabetes type 2, controlled E11.9 [facility] [address] [id number] [address] [place] [address] Jul, Diabetes type 2, controlled E11.9 [facility] [address] [id number] [address] [place] [address] Jun, [facility] [address] [id number] [address] [place] [address] Jun, Hypertension, benign I10 ; M ood disorder F39 and Diabetes type 2, controlled E11.9 [facility] [address] [id number] [address] [place] [address] Jun, Mood disorder F39 [facility] [address] [id number] [address] [place] [address] May, [facility] [address] [id number] [address] [place] [address] May, Mood disorder F39 [facility] [address] [id number] [address] [place] [address] May, Mood disorder F39 [facility] [address] [id number] [address] [place] [address] Apr, Controlled type 2 diabetes m [place] without complication, without long-term current use of insulin E11.9 ; Essential hypertension I10 and Pain in right shoulder M25.511 [facility] [address] [id number] [address] [place] [address] Apr, Mood disorder F39 [facility] [address] [id number] [address] [place] [address] Apr, Pre-op evaluation Z01.818 [facility] [address] [id number] [address] [place] [address] March, Mood disorder F39 [facility] [address] [id number] [address] [place] [address] Feb, [facility] [address] [id number] [address] [place] [address] Feb, Shoulder pain, right M25.511 [facility] [address] [id number] [address] [place] [address] Feb, Shoulder pain, right M25.511 [facility] [address] [id number] [address] [place] [address] Feb, Shoulder pain, right M25.511 [facility] [address] [id number] [address] [place] [address] Feb, Shoulder pain, right M25.511 [facility] [address] [id number] [address] [place] [address] Jan, Shoulder pain, right M25.511 [place] [address] [address] Jan, Shoulder pain, right M25.511 [place] [address] [address] Jan, [place] [address] [address] Jan, Diabetes type 2, controlled E11.9 [place] [address] [address] Jan, Shoulder pain, right M25.511 ; Diabetes mellitus without mention of complication, type II or unspecified type, not stated as uncontrolled 250.00 and Diabetes type 2, controlled E11.9 [place] [address] [address] Jan, [place] [address] [id number] Jan, [place] [address] [address] Dec, [place] [address] [address] Oct, Callus of foot L84 [place] [address] [address] Oct, Anxiety F41.9 ; Callus of fo ot L84 and Dysuria R30.0 [place] [address] [id number] Sep, Diabetes mellitus without me ntion of complication, type II or unspecified type, not stated as uncontrolled 250.00 [place] [address] [id number] Aug, Diabetes mellitus without me ntion of complication, type II or unspecified type, not stated as uncontrolled 250.00 [place] [address] [address] Jul, [facility] [address] [id number] [address] [place] [address] Jul, [facility] [address] [id number] [address] [place] [address] Jul, Diabetes mellitus without me ntion of complication, type II or unspecified type, not stated as uncontrolled 250.00 ; Essential hypertension, benign 401.1 and Anxiety state, unspecified 300.00 [facility] [address] [id number] [address] [place] [address] Jul, [facility] [address] [id number] [address] [place] [address] Jun, [facility] [address] [id number] [address] [place] [address] Jun, [facility] [address] [id number] [address] [place] [id number] May, [facility] [address] [id number] [address] [place] [phone] May, [facility] [address] [id number] [address] [place] [id number] Apr, [facility] [address] [facility] [id number] [address] [place] [id number] Apr, Mood disorder 296.90 [facility] [address] [id number] [address] [place] [id number] March, [facility] [address] [address] [id number] [address] [place] [id number] Feb, [facility] [address] [id number] [address] [place] [address] Feb, [facility] [address] [facility] [id number] [address] [place] [id number] Jan, [facility] [address] [id number] [address] [place] [address] Jan, [facility] [address] [id number] [address] [place] [address], [place] [address] Jan, [facility] [address] [id number] [address] [place] [address], [place] [address] Jan, [facility] [address] [id number] [address] [place] [address], [place] [address] Jan, [facility] [address] [id number] [address] [place] [address], [place] [address] Jan, [facility] [address] [id number] [address] [place] [address], [place] [address] Jan, [facility] [address] [id number] [address] [place] [address], [place] [address] Jan, [facility] [address] [id number] [address] [place] [address], [place] [address] Dec, [facility] [address] [id number] [address] [place] [address], [place] [address] Dec, [facility] [address] [id number] [address] [place] [address], [place] [address] Nov, [facility] [address] [id number] [address] [place] [address], [place] [address] Nov, [facility] [address] [id number] [address] [place] [address], [place] [address] Nov, [facility] [address] [id number] [address] [place] [address], [place] [address] Nov, [facility] [address] [id number] [address] [place] [address], [place] [address] Oct, [facility] [address] [id number] [address] [place] [address], [place] [address] Oct, [facility] [address] [id number] [address] [place] [address], [place] [address] Oct, [facility] [address] [id number] [address] [place] [address] 24 Oct, 2014 [facility] [address] [id number] [address] [place] [address], [place] [address] Oct, [facility] [address] [id number] [address] [place] [address], [place] [address] 24 Oct, 2014 [facility] [address] [id number] [address] [place] [address], [place] [address] 17 Oct, 2014 [facility] [address] [id number] [address] [place] [address], [place] [address] 17 Oct, 2014 [facility] [address] [id number] [address] [place] [address], [place] [address] 15 Oct, 2014 [facility] [address] [id number] [address] [place] [address], [place] [address] 15 Oct, 2014 [facility] [address] [id number] [address] [place] [address], [place] [address] 19 Sep, 2014 [facility] [address] [id number] [address] [place] [address], [place] [address] 19 Sep, 2014 [facility] [address] [id number] [address] [place] [address], [place] [address] 18 Sep, 2014 [facility] [address] [id number] [address] [place] [address], [place] [address] 18 Sep, 2014 [facility] [address] [id number] [address] [place] [address], [place] [address] 18 Sep, 2014 [facility] [address] [id number] [address] [place] [address] 18 Sep, 2014 [facility] [address] [id number] [address] [place] [address], [place] [address] 16 Aug, 2014 [facility] [address] [id number] [address] [place] [address], [place] [address] 16 Aug, 2014 [facility] [address] [id number] [address] [place] [address], [place] [address] 19 Jul, 2014 [facility] [address] [id number] [facility] [place] [address] Jul, [facility] [address] [id number] [facility] [place] [address] Jun, [facility] [address] [id number] [address] [place] [address], [place] [address] Jun, [facility] [address] [id number] [address] [place] [address], [place] [address] May, [facility] [address] [id number] [address] [place] [address], [place] [address] May, [facility] [address] [id number] [address] [place] [address], [place] [address] Apr, [facility] [address] [id number] [address] [place] [address], [place] [address] Apr, [facility] [address] [id number] [address] [place] [address], [place] [address] Apr, [facility] [address] [id number] [address] [place] [address], [place] [address] Apr, [facility] [address] [id number] [address] [place] [address], [place] [address] March, [facility] [address] [id number] [address] [place] [address], [place] [address] March, [facility] [address] [id number] [address] [place] [address], [place] [address] Jan, [facility] [address] [id number] [address] [place] [address], [place] [address] Jan, [facility] [address] [id number] [address] [place] [address], [place] [address] Jan, [facility] [address] [id number] [address] [place] [address], [place] [address] Jan, [facility] [address] [id number] [address] [place] [address], [place] [address] Jan, [facility] [address] [id number] [address] [place] [address], [place] [address] Jan, [facility] [address] [id number] [address] [place] [address], [place] [address] Dec, [facility] [address] [id number] [address] [place] [address], [place] [address] Dec, [facility] [address] [id number] [address] [place] [address], [place] [address] Oct, [facility] [address] [id number] [address] [place] [address], [place] [address] Oct, [facility] [address] [id number] [address] [place] [address], [place] [address] Oct, [facility] [address] [id number] [address] [place] [address], [place] [address] Oct, [facility] [address] [id number] [address] [place] [address], [place] [address] Jul, [facility] [address] [id number] [address] [place] [address], [place] [address] Jul, [facility] [address] [id number] [address] [place] [address], [place] [address] Jul, [facility] [address] [id number] [address] [place] [address], [place] [address] Jun, [facility] [address] [id number] [address] [place] [address], [place] [address] Jun, [facility] [address] [id number] [address] [place] [address], [place] [address] May, [facility] [address] [id number] [address] [place] [address], [place] [address] May, [facility] [address] [id number] [address] [place] [address], [place] [address] March, [facility] [address] [id number] [address] [place] [address], [place] [address] March, [facility] [address] [id number] [address] [place] [address], [place] [address] Feb, [facility] [address] [id number] [address] [place] [address], [place] [address] Feb, [facility] [address] [id number] [address] [place] [address], [place] [address] Jan, [facility] [address] [id number] [address] [place] [address], [place] [address] Dec, [facility] [address] [id number] [address] [place] [address], [place] [address] Dec, [facility] [address] [id number] [address] [place] [address], [place] [address] 15 Dec, 2012 [facility] [address] [id number] [address] [place] [address], [place] [address] Dec, [facility] [address] [id number] [address] [place] [address], [place] [address] Dec, [facility] [address] [id number] [address] [place] [address], [place] [address] Nov, [facility] [address] [id number] [address] [place] [address] Oct, [facility] [address] [id number] [address] [place] [address], [place] [address] Oct, [facility] [address] [id number] [address] [place] [address] Aug, [facility] [address] [id number] [address] [place] [address], [place] [address] Aug, [facility] [address] [id number] [address] [place] [address], [place] [address] Aug, [facility] [address] [id number] [address] [place] [address] Aug, [facility] [address] [id number] [address] [place] [address], [place] [address] Aug, [facility] [address] [id number] [address] [place] [address], [place] [address] Jul, [facility] [address] [id number] [address] [place] [address], [place] [address] Jul, [facility] [address] [id number] [address] [place] [address], [place] [address] Jun, [facility] [address] [id number] [address] [place] [address], [place] [address] Jun, [facility] [address] [id number] [address] [place] [address], [place] [address] May, [facility] [address] [id number] [address] [place] [address], [place] [address] May, [facility] [address] [id number] [address] [place] [address], [place] [address] May, [facility] [address] [id number] [address] [place] [address], [place] [address] Apr, [facility] [address] [id number] [address] [place] [address], [place] [address] Apr, [facility] [address] [id number] [address] [place] [address], [place] [address] March, [facility] [address] [id number] [address] [place] [address], [place] [address] March, [facility] [address] [id number] [address] [place] [address], [place] [address] Feb, [facility] [address] [id number] [address] [place] [address], [place] [address] 17 Feb, 2012 [facility] [address] [id number] [address] [place] [address], [place] [address] Feb, [facility] [address] [id number] [address] [place] [address] [place] [address] Feb, IMMUNIZATIONS No Known Immunizations SOCIAL HISTORY Never Assessed REASON FOR VISIT PLAN OF CARE VITAL SIGNS Height 71 in 2013-02-15 Weight 249.3 lbs 2013-02-15 Temperature 98.3 degrees Fahrenheit 2013-02-15 Heart Rate 74 bpm 2013-02-15 Respiratory Rate 16 2013-02-15 Blood pressure systolic 104 mmHg 2013-02-15 Blood pressure diastolic 82 mmHg 2013-02-15 MEDICATIONS Unknown Medications RESULTS No Results PROCEDURES [...]
--- OUTSIDE RECORDS SUMMARY | 2020-06-17 08:40 | XMS REPORT ---
Author Author Barrie SIMMONS Organization [facility] Address [address] [place] [address] Care Team Providers Care Extract Wringer Name Role Phone JOYCE SIMMONS Unavailable PROBLEMS Type Condition ICD9-CM Code NIK23-EV Code Onset Dates Condition S tatus SNOMED Code Problem Primary insomnia F51.01 Active 397 2004 Problem Diabetes type 2, controlled E11.9 Ac tive 43208637 Problem Urinary hesitancy R39.11 Active 59 84440 Problem Essential hypertension I10 Active 65558621 Problem 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.1 Active 426825950 Problem Obstructive sleep apnea G47.33 Active 94941137 Problem Benign prostatic hyperplasia with lower urinary tract symptoms N40.1 Active 570359124 Problem Controlled type 2 diabetes m ellitus without complication, without long- term current use of insulin E11.9 Active 275791527 Problem 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 Acti ve 95986984 Problem Panlobular emphysema J43.1 Active 7549917 Problem Hesitancy of micturition R39.11 Activ e 8530882 Problem Chronic fatigue R53.82 Active 8422 9001 Problem Acute superficial venous thrombosis of left lower extremit y I82.812 Active [id number] Problem Uncontrolled type 2 diabetes mellitus with hyperglycemia E11.65 Active 448246759 Problem Arthritis M19.90 Active 7840144 Problem EMIR (obstructive sleep apnea) G47.33 Active 87563815 Problem Mood disorder F39 Active 695849 05 ALLERGIES No Information ENCOUNTERS Encounter Location Date Diagnosis [facility] [address] [facility] [id number] [address] [place] [phone] Jul, [facility] [address] [facility] [id number] [address] [place] [phone] Jun, [facility] [address] [facility] [id number] [address] [place] [phone] May, [facility] [address] [id number] [address] [place] [phone] 03 May, 2020 [facility] [address] [id number] [address] [place] [phone] 14 Apr, 2020 Encounter for screening labo ratory testing for COVID-19 virus Z11.59 [place] [address] [facility] [id number] [address] [place] [phone] 04 Apr, 2020 Moderate episode of recurren t major depressive disorder F33.1 [place] [address] [facility] [id number] [address] [place] [phone] 29 Mar, 2020 Diabetes type 2, controlled E11.9 ; Family history of early CAD Z82.49 ; Chest pain on exertion R07.9 and Chronic fatigue R53.82 [place] [address] [facility] [id number] [address] [place] [phone] 14 Mar, 2020 [place] [address] [id number] [address] [place] [phone] 07 Mar, 2020 Moderate episode of recurren t major depressive disorder F33.1 [place] [address] [id number] [address] [place] [phone] 07 Mar, 2020 Moderate episode of recurren t major depressive disorder F33.1 [place] [address] [facility] [id number] [address] [place] [phone] March, Foot callus L84 [place] [address] [id number] [address] [place] [phone] March, Moderate episode of recurren t major depressive disorder F33.1 [place] [address] [id number] [address] [place] [phone] Jan, Foot callus L84 [place] [address] [id number] [address] [place] [phone] 07 Dec, 2019 Moderate episode of recurren t major depressive disorder F33.1 [place] [address] [id number] [address] [place] [phone] 04 Dec, 2019 Moderate episode of recurren t major depressive disorder F33.1 [facility] [address] [id number] [address] [place] [phone] 04 Dec, 2019 Moderate episode of recurren t major depressive disorder F33.1 [facility] [address] [id number] [address] [place] [phone] 16 Nov, 2019 Panlobular emphysema J43.1 ; Mood disorder F39 and Controlled type 2 diabetes mellitus without complication, without long-term current use of insulin E11.9 [facility] [address] [id number] [address] [place] [phone] Nov, [facility] [address] [id number] [address] [place] [phone] Nov, Increased sputum production R09.3 and EMIR (obstructive sleep apnea) G47.33 [facility] [address] [id number] [address] [place] [phone] Oct, [facility] [address] [id number] [address] [place] [phone] Sep, [facility] [address] [id number] [address] [place] [phone] Sep, [facility] [address] [id number] [address] [place] [phone] Sep, [facility] [address] [id number] [address] [place] [phone] Aug, Moderate episode of recurren t major depressive disorder F33.1 [facility] [address] [id number] [address] [place] [phone] Aug, Moderate episode of recurren t major depressive disorder F33.1 [facility] [address] [id number] [address] [place] [phone] Aug, Moderate episode of recurren t major depressive disorder F33.1 [facility] [address] [id number] [address] [place] [phone] Jul, [facility] [address] [id number] [address] [place] [phone] Jul, Foot callus L84 ; Uncontroll ed type 2 diabetes mellitus with hyperglycemia E11.65 ; Arthritis M19.90 ; Encounter for immunization Z23 ; Rib pain on right side R07.81 and Lumbar pain M54.5 [facility] [address] [id number] [address] [place] [phone] Jul, [facility] [address] [id number] [address] [place] [phone] Jun, [facility] [address] [id number] [address] [place] [phone] Jun, [facility] [address] [id number] [address] [place] [phone] Jun, Callus of foot L84 [facility] [address] [id number] [address] [place] [phone] Jun, [facility] [address] [id number] [address] [place] [id number] Apr, Exercise counseling Z71.82 [facility] [address] [id number] [address] [place] [phone] March, Moderate episode of recurren t major depressive disorder F33.1 [facility] [address] [id number] [address] [place] [phone] March, Moderate episode of recurren t major depressive disorder F33.1 [facility] [address] [id number] [address] [place] [phone] March, Exercise counseling Z71.82 [facility] [address] [id number] [address] [place] [phone] March, [facility] [address] [id number] [address] [place] [phone] March, Exercise counseling Z71.82 [facility] [address] [id number] [address] [place] [phone] March, Right otitis media with effu yousuf H65.91 ; 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 and Diabetes type 2, controlled E11.9 [facility] [address] [id number] [address] [place] [phone] March, Moderate episode of recurren t major depressive disorder F33.1 [facility] [address] [id number] [address] [place] [phone] March, Exercise counseling Z71.82 [place] [address] [facility] [id number] [address] [place] [phone] March, Exercise counseling Z71.82 [place] [address] [facility] [id number] [address] [place] [phone] March, Callus of foot L84 [place] [address] [facility] [id number] [address] [place] [phone] Feb, Moderate episode of recurren t major depressive disorder F33.1 [facility] [address] [id number] [address] [place] [phone] Feb, [place] [address] [id number] [address] [place] [phone] Feb, Moderate episode of recurren t major depressive disorder F33.1 [facility] [address] [id number] [address] [place] [phone] Feb, Diabetes type 2, controlled E11.9 and Essential hypertension I10 [facility] [address] [id number] [address] [place] [phone] Jan, [facility] [address] [id number] [address] [place] [phone] Jan, Callus of foot L84 [facility] [address] [facility] [id number] [address] [place] [phone] Jan, Moderate episode of recurren t major depressive disorder F33.1 [facility] [address] [facility] [id number] [address] [place] [phone] Jan, Moderate episode of recurren t major depressive disorder F33.1 [place] [address] [facility] [id number] [address] [place] [id number] 26 Dec, 2018 Moderate episode of recurren t major depressive disorder F33.1 [facility] [address] [facility] [id number] [address] [place] [phone] 11 Dec, 2018 Candidiasis of the esophagus B37.81 [facility] [address] [facility] [id number] [address] [place] [phone] Dec, [facility] [address] [facility] [id number] [address] [place] [phone] 04 Dec, 2018 Fecal occult blood test posi tive R19.5 and Anemia, unspecified type D64.9 [place] [address] [facility] [id number] [address] [place] [phone] Nov, Stool color black K92.1 [place] [address] [facility] [id number] [address] [place] [phone] Nov, Stool color black K92.1 [place] [address] [facility] [id number] [address] [place] [phone] Nov, Stool color black K92.1 [place] [address] [facility] [id number] [address] [place] [phone] Nov, [facility] [address] [facility] [id number] [address] [place] [phone] Nov, Moderate episode of recurren t major depressive disorder F33.1 [place] [address] [facility] [id number] [address] [place] [phone] Oct, Moderate episode of recurren t major depressive disorder F33.1 [facility] [address] [facility] [id number] [address] [place] [id number] Oct, Callus of foot L84 and Contr olled type 2 diabetes mellitus without complication, without long-term current use of insulin E11.9 [place] [address] [id number] [address] [place] [phone] 10 Oct, 2018 Moderate episode of recurren t major depressive disorder F33.1 [place] [address] [id number] [address] [place] [phone] 17 Aug, 2018 Mood disorder F39 [place] [address] [id number] [address] [place] [phone] Aug, Encounter for immunization Z 23 [place] [address] [id number] [address] [place] [id number] 26 Jul, 2018 Moderate episode of recurren t major depressive disorder F33.1 [place] [address] [id number] [address] [place] [phone] 24 Jul, 2018 Moderate episode of recurren t major depressive disorder F33.1 [place] [address] [id number] [address] [place] [phone] May, [place] [address] [id number] [address] [place] [phone] May, Moderate episode of recurren t major depressive disorder F33.1 [place] [address] [id number] [address] [place] [phone] May, Moderate episode of recurren t major depressive disorder F33.1 [place] [address] [id number] [address] [place] [phone] Apr, Benign prostatic hyperplasia with lower urinary tract symptoms N40.1 and Hesitancy of micturition R39.11 [place] [address] [id number] [address] [place] [phone] Apr, Moderate episode of recurren t major depressive disorder F33.1 [place] [address] [id number] [address] [place] [phone] Apr, Unspecified mood [affective] disorder F39 and Primary insomnia F51.01 [place] [address] [id number] [address] [place] [phone] Apr, Primary insomnia F51.01 [facility] [address] [facility] [id number] [address] [place] [phone] March, Foot callus L84 [facility] [address] [facility] [id number] [address] [place] [phone] Feb, Medicare annual wellness vis it, initial Z00.00 [facility] [address] [id number] [address] [place] [phone] Feb, Acute superficial venous thr ombosis of left lower extremity I82.812 [facility] [address] [id number] [address] [place] [phone] Feb, [facility] [address] [facility] [id number] [address] [place] [phone] Feb, [facility] [address] [facility] [id number] [address] [place] [phone] Feb, Acute superficial venous thr ombosis of left lower extremity I82.812 [facility] [address] [facility] [id number] [address] [place] [phone] Feb, [facility] [address] [facility] [id number] [address] [place] [phone] Feb, Other specified soft tissue disorders M79.89 and Pain in left leg M79.605 [facility] [address] [facility] [id number] [address] [place] [phone] Jan, Obstructive sleep apnea G47. 33 [facility] [address] [facility] [id number] [address] [place] [phone] Dec, Obstructive sleep apnea G47. 33 and Mood disorder F39 [facility] [address] [facility] [id number] [address] [place] [phone] Dec, [facility] [address] [facility] [id number] [address] [place] [phone] Dec, [facility] [address] [facility] [id number] [address] [place] [phone] Nov, Diabetes type 2, controlled E11.9 [facility] [address] [facility] [id number] [address] [place] [phone] Nov, Encounter for immunization Z 23 [facility] [address] [facility] [id number] [address] [place] [phone] Nov, Primary insomnia F51.01 [facility] [address] [facility] [id number] [address] [place] [phone] 07 Oct, 2017 Medicare annual wellness vis it, subsequent Z00.00 and Mood disorder F39 [facility] [address] [facility] [id number] [address] [place] [phone] Sep, Mood disorder F39 [place] [address] [facility] [id number] [address] [place] [phone] Aug, Primary insomnia F51.01 and Urinary hesitancy R39.11 [facility] [address] [facility] [id number] [address] [place] [address] Aug, Primary insomnia F51.01 [facility] [address] [facility] [id number] [address] [place] [phone] 07 Jul, 2017 Diabetes type 2, controlled E11.9 ; Primary insomnia F51.01 and Mood disorder F39 [facility] [address] [id number] [id number] Jun, Mood disorder F39 [facility] [address] [id number] [place] [id number] Jun, [facility] [address] [facility] [id number] [address] [place] [phone] May, Nightmares F51.5 [facility] [address] [facility] [id number] [address] [place] [phone] May, Cognitive complaints R41.9 ; Unspecified mood [affective] disorder F39 and Primary insomnia F51.01 [facility] [address] [id number] [address] [place] [phone] Apr, Mood disorder F39 and Primar y insomnia F51.01 [facility] [address] [id number] [address] [place] [phone] Apr, Cognitive complaints R41.9 a nd Unspecified mood [affective] disorder F39 [facility] [address] [id number] [address] [place] [phone] Apr, Cognitive complaints R41.9 a nd Unspecified mood [affective] disorder F39 [facility] [address] [id number] [address] [place] [id number] March, [facility] [address] [facility] [id number] [address] [place] [phone] March, Diabetes type 2, controlled E11.9 and Essential hypertension I10 [facility] [address] [facility] [id number] [address] [place] [phone] March, Primary insomnia F51.01 ; Di abetes type 2, controlled E11.9 and Pain in right shoulder M25.511 [facility] [address] [facility] [id number] [address] [place] [address] March, Cognitive complaints R41.9 a nd Unspecified mood [affective] disorder F39 [facility] [address] [facility] [id number] [address] [place] [id number] Feb, Other specified mental disor ders due to known physiological condition F06.8 [facility] [address] [id number] [address] [place] [id number] Jan, [facility] [address] [facility] [id number] [address] [place] [phone] Jan, [facility] [address] [facility] [id number] [address] [place] [phone] Dec, Diabetes type 2, controlled E11.9 ; Hypertension, benign I10 and Mood disorder F39 [facility] [address] [facility] [id number] [address] [place] [id number] 08 Dec, 2016 Medicare annual wellness vis it, initial Z00.00 [facility] [address] [facility] [id number] [address] [place] [phone] 05 Nov, 2016 Medicare welcome exam Z00.00 ; Encounter for immunization Z23 ; Medicare annual wellness visit, initial Z00.00 and Medicare annual wellness visit, subsequent Z00.00 [facility] [address] [id number] [address] [place] [phone] Oct, [facility] [address] [id number] [address] [place] [phone] Sep, [facility] [address] [facility] [id number] [address] [place] [phone] Aug, Encounter for immunization Z 23 and Callus L84 [facility] [address] [facility] [id number] [address] [place] [phone] Aug, [facility] [address] [id number] [address] [place] [phone] Jul, Diabetes type 2, controlled E11.9 [facility] [address] [facility] [id number] [address] [place] [phone] Jul, Diabetes type 2, controlled E11.9 [facility] [address] [facility] [id number] [address] [place] [id number] Jun, [facility] [address] [facility] [id number] [address] [place] [phone] Jun, Hypertension, benign I10 ; M ood disorder F39 and Diabetes type 2, controlled E11.9 [facility] [address] [id number] [address] [place] [phone] Jun, Mood disorder F39 [facility] [address] [facility] [id number] [address] [place] [phone] May, [facility] [address] [facility] [id number] [address] [place] [phone] May, Mood disorder F39 [facility] [address] [id number] [address] [place] [address] May, Mood disorder F39 [facility] [address] [id number] [address] [place] [address] Apr, Controlled type 2 diabetes m ellitus without complication, without long-term current use of insulin E11.9 ; Essential hypertension I10 and Pain in right shoulder M25.511 [facility] [address] [id number] [address] [place] [address] Apr, Mood disorder F39 [facility] [address] [id number] [address] [place] [id number] Apr, Pre-op evaluation Z01.818 [facility] [address] [id number] [address] [place] [id number] March, Mood disorder F39 [facility] [address] [id number] [address] [place] [phone] Feb, [facility] [address] [id number] [address] [place] [id number] Feb, Shoulder pain, right M25.511 [facility] [address] [id number] [address] [place] [id number] Feb, Shoulder pain, right M25.511 [facility] [address] [id number] [address] [place] [id number] Feb, Shoulder pain, right M25.511 [facility] [address] [id number] [address] [place] [id number] Feb, Shoulder pain, right M25.511 [facility] [address] [id number] [address] [place] [id number] Jan, Shoulder pain, right M25.511 [facility] [address] [id number] [address] [place] [id number] Jan, Shoulder pain, right M25.511 [facility] [address] [facility] [id number] [address] [place] [id number] 16 Jan, 2016 [facility] [address] [place] [id number] [address] [place] [id number] 14 Jan, 2016 Diabetes type 2, controlled E11.9 [facility] [address] [place] [id number] [address] [place] [id number] Jan, Shoulder pain, right M25.511 ; Diabetes mellitus without mention of complication, type II or unspecified type, not stated as uncontrolled 250.00 and Diabetes type 2, controlled E11.9 [facility] [address] [place] [id number] [address] [place] [phone] Jan, [place] [address] [place] [id number] [address] [place] [phone] Jan, [place] [address] [place] [id number] [place] [phone] Dec, [facility] [address] [place] [id number] [place] [id number] Oct, Callus of foot L84 [place] [address] [id number] Oct, Anxiety F41.9 ; Callus of fo ot L84 and Dysuria R30.0 [place] [address] [place] [id number] [place] [id number] Sep, Diabetes mellitus without me ntion of complication, type II or unspecified type, not stated as uncontrolled 250.00 [facility] [address] [place] [id number] [place] [id number] Aug, Diabetes mellitus without me ntion of complication, type II or unspecified type, not stated as uncontrolled 250.00 [facility] [address] [id number] [address] [place] [id number] Jul, [facility] [id number] [place] [address] Jul, [facility] [address] [id number] [address] [place] [address] Jul, Diabetes mellitus without me ntion of complication, type II or unspecified type, not stated as uncontrolled 250.00 ; Essential hypertension, benign 401.1 and Anxiety state, unspecified 300.00 [facility] [address] [id number] [address] [place] [address] Jul, [facility] [address] [id number] [address] [place] [address] Jun, [facility] [address] [id number] [address] [place] [phone] Jun, [facility] [address] [id number] [address] [place] [address] May, [facility] [address] [id number] [address] [place] [address] May, [facility] [address] [id number] [address] [place] [address] Apr, [facility] [address] [id number] [address] [place] [phone] Apr, Mood disorder 296.90 [facility] [address] [id number] [address] [place] [id number] March, [facility] [address] [id number] [address] [place] [id number] Feb, [facility] [address] [id number] [address] [place] [id number] Feb, [facility] [address] [id number] [address] [place] [address] Jan, [facility] [address] [id number] [address] [place] [phone] Jan, [facility] [address] [id number] [address] [place] [phone] Jan, [facility] [address] [id number] [address] [place] [address], [place] [address] Jan, [facility] [address] [id number] [address] [place] [address], [place] [address] Jan, [facility] [address] [id number] [address] [place] [address], [place] [address] Jan, [facility] [address] [id number] [address] [place] [address], [place] [address] Jan, [facility] [address] [id number] [address] [place] [address], [place] [address] Jan, [facility] [address] [id number] [address] [place] [address], [place] [address] Dec, [facility] [address] [id number] [address] [place] [address], [place] [address] Dec, [facility] [address] [id number] [address] [place] [address], [place] [address] Nov, [facility] [address] [id number] [address] [place] [address], [place] [address] Nov, [facility] [address] [id number] [address] [place] [address], [place] [address] Nov, [facility] [address] [id number] [address] [place] [address], [place] [address] Nov, [facility] [address] [id number] [address] [place] [address], [place] [address] Oct, [facility] [address] [id number] [address] [place] [address], [place] [address] Oct, [facility] [address] [id number] [address] [place] [address], [place] [address] Oct, [facility] [address] [id number] [address] [place] [address], [place] [address] Oct, [facility] [address] [id number] [address] [place] [address], [place] [address] 24 Oct, 2014 [facility] [address] [id number] [address] [place] [address], [place] [address] 24 Oct, 2014 [facility] [address] [id number] [address] [place] [address], [place] [address] 17 Oct, 2014 [facility] [address] [id number] [address] [place] [address], [place] [address] 17 Oct, 2014 [facility] [address] [id number] [address] [place] [address], [place] [address] 15 Oct, 2014 [facility] [address] [id number] [address] [place] [address], [place] [address] 15 Oct, 2014 [facility] [address] [id number] [address] [place] [address], [place] [address] 19 Sep, 2014 [facility] [address] [id number] [address] [place] [address], [place] [address] Sep, [facility] [address] [id number] [address] [place] [address], [place] [address] 18 Sep, 2014 [facility] [address] [id number] [address] [place] [address], [place] [address] 18 Sep, 2014 [facility] [address] [id number] [address] [place] [address], [place] [address] 18 Sep, 2014 [facility] [address] [id number] [address] [place] [address], [place] [address] 18 Sep, 2014 [facility] [address] [id number] [address] [place] [address] 16 Aug, 2014 [facility] [address] [id number] [address] [place] [address], [place] [address] 16 Aug, 2014 [facility] [address] [id number] [address] [place] [address], [place] [address] 19 Jul, 2014 [facility] [address] [id number] [address] [place] [address], [place] [address] 19 Jul, 2014 [facility] [address] [id number] [facility] [place] [address] Jun, [facility] [address] [id number] [address] [place] [address], [place] [address] Jun, [facility] [address] [id number] [facility] [place] [address] May, [facility] [address] [id number] [address] [place] [address], [place] [address] May, [facility] [address] [id number] [address] [place] [address], [place] [address] Apr, [facility] [address] [id number] [address] [place] [address], [place] [address] Apr, [facility] [address] [id number] [address] [place] [address], [place] [address] Apr, [facility] [address] [id number] [address] [place] [address], [place] [address] Apr, [facility] [address] [id number] [address] [place] [address], [place] [address] March, [facility] [address] [id number] [address] [place] [address], [place] [address] March, [facility] [address] [id number] [address] [place] [address], [place] [address] Jan, [facility] [address] [id number] [address] [place] [address], [place] [address] Jan, [facility] [address] [id number] [address] [place] [address], [place] [address] Jan, [facility] [address] [id number] [address] [place] [address], [place] [address] Jan, [facility] [address] [id number] [address] [place] [address], [place] [address] Jan, [facility] [address] [id number] [address] [place] [address], [place] [address] Jan, [facility] [address] [id number] [address] [place] [address], [place] [address] Dec, [facility] [address] [id number] [address] [place] [address], [place] [address] Dec, [facility] [address] [id number] [address] [place] [address], [place] [address] Oct, [facility] [address] [id number] [address] [place] [address], [place] [address] Oct, [facility] [address] [id number] [address] [place] [address], [place] [address] Oct, [facility] [address] [id number] [address] [place] [address], [place] [address] Oct, [facility] [address] [id number] [address] [place] [address], [place] [address] Jul, [facility] [address] [id number] [address] [place] [address], [place] [address] Jul, [facility] [address] [id number] [address] [place] [address], [place] [address] Jul, [facility] [address] [id number] [address] [place] [address], [place] [address] Jun, [facility] [address] [id number] [address] [place] [address], [place] [address] Jun, [facility] [address] [id number] [address] [place] [address], [place] [address] May, [facility] [address] [id number] [address] [place] [address], [place] [address] May, [facility] [address] [id number] [address] [place] [address], [place] [address] March, [facility] [address] [id number] [address] [place] [address], [place] [address] March, [facility] [address] [id number] [address] [place] [address] Feb, [facility] [address] [id number] [address] [place] [address], [place] [address] Feb, [facility] [address] [id number] [address] [place] [address] Jan, [facility] [address] [id number] [address] [place] [address], [place] [address] Dec, [facility] [address] [id number] [address] [place] [address] Dec, [facility] [address] [id number] [address] [place] [address], [place] [address] Dec, [facility] [address] [id number] [address] [place] [address], [place] [address] 14 Dec, 2012 [facility] [address] [id number] [address] [place] [address] Dec, [facility] [address] [id number] [address] [place] [address] Nov, [facility] [address] [id number] [address] [place] [address] Oct, [facility] [address] [id number] [address] [place] [address] Oct, [facility] [address] [id number] [address] [place] [address], [place] [address] Aug, [facility] [address] [id number] [address] [place] [address] Aug, [facility] [address] [id number] [address] [place] [address] Aug, [facility] [address] [id number] [address] [place] [address] Aug, [facility] [address] [id number] [address] [place] [id number] Aug, [facility] [address] [id number] [address] [place] [id number] Jul, [facility] [address] [id number] [address] [place] [address] Jul, [facility] [address] [id number] [address] [place] [address] Jun, [facility] [address] [id number] [address] [place] [address] Jun, [facility] [address] [id number] [address] [place] [address] May, [facility] [address] [id number] [address] [place] [address] May, [facility] [address] [id number] [address] [place] [address] May, [facility] [address] [id number] [address] [place] [address] Apr, [facility] [address] [id number] [address] [place] [address] Apr, [facility] [address] [id number] [address] [place] [address] March, [facility] [address] [id number] [address] [place] [address] March, [facility] [address] [id number] [address] [place] [address] Feb, [facility] [address] [id number] [address] [place] [address] 17 Feb, 2012 [facility] [address] [id number] [address] [place] [address] Feb, [facility] [address] [id number] [address] [place] [address] Feb, IMMUNIZATIONS No Known Immunizations SOCIAL HISTORY Never Assessed REASON FOR VISIT PLAN OF CARE VITAL SIGNS MEDICATIONS Unknown Medications RESULTS No Results PROCEDURES Procedure Date Ordered Result Body Site PSYTX PT&/FAMILY 45 MINUTES Aug 03, 2013 INSTRUCTIONS MEDICATIONS ADMINISTERED No Known Medications [...]
--- OUTSIDE RECORDS SUMMARY | 2020-06-17 08:40 | XMS REPORT ---
Author Author Barrie BUSTILOL Organization [facility] Address [address] [place] [address] Care Team Providers Care Learning And Development Specialist Name Role Phone BARRIE BUSTILLO Unavailable PROBLEMS Type Condition ICD9-CM Code UGU03-BP Code Onset Dates Condition S tatus SNOMED Code Problem Primary insomnia F51.01 Active 397 2004 Problem Diabetes type 2, controlled E11.9 Ac tive 43614832 Problem Urinary hesitancy R39.11 Active 59 45345 Problem Essential hypertension I10 Active 59027622 Problem 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.1 Active 025521168 Problem Obstructive sleep apnea G47.33 Active 06186487 Problem Benign prostatic hyperplasia with lower urinary tract symptoms N40.1 Active 954896998 Problem Controlled type 2 diabetes m ellitus without complication, without long- term current use of insulin E11.9 Active 960536740 Problem 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 Acti ve 29186885 Problem Panlobular emphysema J43.1 Active 0450948 Problem Hesitancy of micturition R39.11 Activ e 6890055 Problem Chronic fatigue R53.82 Active 8422 9001 Problem Acute superficial venous thrombosis of left lower extremit y I82.812 Active [id number] Problem Uncontrolled type 2 diabetes mellitus with hyperglycemia E11.65 Active 383409512 Problem Arthritis M19.90 Active 9212207 Problem EMIR (obstructive sleep apnea) G47.33 Active 84599412 Problem Mood disorder F39 Active 574414 05 ALLERGIES No Information ENCOUNTERS Encounter Location Date Diagnosis [facility] [address] [facility] [id number] [address] [place] [id number] Jul, [facility] [address] [facility] [id number] [address] [place] [phone] Jun, [facility] [address] [facility] [id number] [address] [place] [phone] May, [facility] [address] [id number] [address] [place] [phone] 03 May, 2020 [facility] [address] [facility] [id number] [address] [place] [phone] 14 Apr, 2020 Encounter for screening labo ratory testing for COVID-19 virus Z11.59 [facility] [place] [address] [id number] [address] [place] [phone] 04 Apr, 2020 Moderate episode of recurren t major depressive disorder F33.1 [facility] [address] [id number] [address] [place] [phone] 29 Mar, 2020 Diabetes type 2, controlled E11.9 ; Family history of early CAD Z82.49 ; Chest pain on exertion R07.9 and Chronic fatigue R53.82 [facility] [address] [facility] [id number] [address] [place] [phone] 14 Mar, 2020 [place] [address] [id number] [address] [place] [phone] March, Moderate episode of recurren t major depressive disorder F33.1 [place] [address] [id number] [address] [place] [phone] March, Moderate episode of recurren t major depressive disorder F33.1 [facility] [address] [id number] [address] [place] [phone] March, Foot callus L84 [facility] [address] [id number] [address] [place] [phone] March, Moderate episode of recurren t major depressive disorder F33.1 [place] [address] [id number] [address] [place] [phone] Jan, Foot callus L84 [place] [address] [id number] [address] [place] [phone] 07 Dec, 2019 Moderate episode of recurren t major depressive disorder F33.1 [place] [address] [id number] [address] [place] [phone] Dec, Moderate episode of recurren t major depressive disorder F33.1 [facility] [address] [id number] [address] [place] [id number] Dec, Moderate episode of recurren t major depressive disorder F33.1 [facility] [address] [id number] [address] [place] [phone] 16 Nov, 2019 Panlobular emphysema J43.1 ; Mood disorder F39 and Controlled type 2 diabetes mellitus without complication, without long-term current use of insulin E11.9 [facility] [address] [id number] [address] [place] [phone] Nov, [facility] [address] [id number] [address] [place] [id number] Nov, Increased sputum production R09.3 and EMIR (obstructive sleep apnea) G47.33 [facility] [address] [id number] [address] [place] [phone] Oct, [facility] [address] [id number] [address] [place] [phone] Sep, [facility] [address] [id number] [address] [place] [phone] Sep, [facility] [address] [id number] [address] [place] [phone] Sep, [facility] [address] [id number] [address] [place] [phone] Aug, Moderate episode of recurren t major depressive disorder F33.1 [facility] [address] [id number] [address] [place] [phone] Aug, Moderate episode of recurren t major depressive disorder F33.1 [facility] [address] [id number] [address] [place] [phone] Aug, Moderate episode of recurren t major depressive disorder F33.1 [facility] [address] [id number] [address] [place] [id number] Jul, [facility] [address] [id number] [address] [place] [phone] Jul, Foot callus L84 ; Uncontroll ed type 2 diabetes mellitus with hyperglycemia E11.65 ; Arthritis M19.90 ; Encounter for immunization Z23 ; Rib pain on right side R07.81 and Lumbar pain M54.5 [facility] [address] [id number] [address] [place] [id number] Jul, [facility] [address] [id number] [address] [place] [phone] Jun, [facility] [address] [id number] [address] [place] [phone] Jun, [facility] [address] [id number] [address] [place] [phone] Jun, Callus of foot L84 [facility] [address] [id number] [address] [place] [phone] Jun, [facility] [address] [id number] [address] [place] [id number] Apr, Exercise counseling Z71.82 [facility] [address] [id number] [address] [place] [phone] March, Moderate episode of recurren t major depressive disorder F33.1 [facility] [address] [id number] [address] [place] [phone] March, Moderate episode of recurren t major depressive disorder F33.1 [facility] [address] [id number] [address] [place] [phone] March, Exercise counseling Z71.82 [facility] [address] [id number] [address] [place] [phone] March, [facility] [address] [id number] [address] [place] [phone] March, Exercise counseling Z71.82 [facility] [address] [id number] [address] [place] [phone] March, Right otitis media with effu yousuf H65.91 ; 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 and Diabetes type 2, controlled E11.9 [facility] [address] [id number] [address] [place] [phone] March, Moderate episode of recurren t major depressive disorder F33.1 [facility] [address] [id number] [address] [place] [phone] March, Exercise counseling Z71.82 [facility] [address] [id number] [address] [place] [phone] March, Exercise counseling Z71.82 [place] [address] [facility] [id number] [address] [place] [phone] March, Callus of foot L84 [facility] [address] [facility] [id number] [address] [place] [phone] Feb, Moderate episode of recurren t major depressive disorder F33.1 [facility] [address] [id number] [address] [place] [phone] Feb, [facility] [address] [id number] [address] [place] [phone] Feb, Moderate episode of recurren t major depressive disorder F33.1 [place] [address] [id number] [address] [place] [id number] Feb, Diabetes type 2, controlled E11.9 and Essential hypertension I10 [facility] [address] [id number] [address] [place] [phone] Jan, [facility] [address] [facility] [id number] [address] [place] [phone] Jan, Callus of foot L84 [facility] [address] [facility] [id number] [address] [place] [phone] Jan, Moderate episode of recurren t major depressive disorder F33.1 [place] [address] [facility] [id number] [address] [place] [phone] Jan, Moderate episode of recurren t major depressive disorder F33.1 [place] [address] [facility] [id number] [address] [place] [phone] Dec, Moderate episode of recurren t major depressive disorder F33.1 [facility] [address] [facility] [id number] [address] [place] [id number] 11 Dec, 2018 Candidiasis of the esophagus B37.81 [facility] [address] [facility] [id number] [address] [place] [phone] Dec, [facility] [address] [facility] [id number] [address] [place] [phone] Dec, Fecal occult blood test posi tive R19.5 and Anemia, unspecified type D64.9 [place] [address] [place] [id number] [address] [place] [phone] Nov, Stool color black K92.1 [place] [address] [facility] [id number] [address] [place] [phone] Nov, Stool color black K92.1 [place] [address] [facility] [id number] [address] [place] [phone] Nov, Stool color black K92.1 [place] [address] [facility] [id number] [address] [place] [phone] Nov, [facility] [address] [place] [id number] [address] [place] [phone] Nov, Moderate episode of recurren t major depressive disorder F33.1 [place] [address] [facility] [id number] [address] [place] [phone] Oct, Moderate episode of recurren t major depressive disorder F33.1 [place] [address] [facility] [id number] [address] [place] [phone] Oct, Callus of foot L84 and Contr olled type 2 diabetes mellitus without complication, without long-term current use of insulin E11.9 [facility] [address] [id number] [address] [place] [phone] 10 Oct, 2018 Moderate episode of recurren t major depressive disorder F33.1 [facility] [address] [id number] [address] [place] [phone] 17 Aug, 2018 Mood disorder F39 [facility] [address] [id number] [address] [place] [phone] 05 Aug, 2018 Encounter for immunization Z 23 [facility] [address] [id number] [address] [place] [phone] 26 Jul, 2018 Moderate episode of recurren t major depressive disorder F33.1 [place] [address] [id number] [address] [place] [id number] 24 Jul, 2018 Moderate episode of recurren t major depressive disorder F33.1 [place] [address] [id number] [address] [place] [phone] May, [place] [address] [id number] [address] [place] [phone] May, Moderate episode of recurren t major depressive disorder F33.1 [place] [address] [id number] [address] [place] [phone] May, Moderate episode of recurren t major depressive disorder F33.1 [place] [address] [id number] [address] [place] [phone] Apr, Benign prostatic hyperplasia with lower urinary tract symptoms N40.1 and Hesitancy of micturition R39.11 [place] [address] [id number] [address] [place] [phone] Apr, Moderate episode of recurren t major depressive disorder F33.1 [place] [address] [id number] [address] [place] [id number] Apr, Unspecified mood [affective] disorder F39 and Primary insomnia F51.01 [place] [address] [id number] [address] [place] [id number] Apr, Primary insomnia F51.01 [facility] [address] [id number] [address] [place] [id number] March, Foot callus L84 [facility] [address] [id number] [address] [place] [id number] Feb, Medicare annual wellness vis it, initial Z00.00 [facility] [address] [id number] [address] [place] [id number] Feb, Acute superficial venous thr ombosis of left lower extremity I82.812 [facility] [address] [id number] [address] [place] [id number] Feb, [facility] [address] [facility] [id number] [address] [place] [id number] Feb, [facility] [address] [facility] [id number] [address] [place] [id number] Feb, Acute superficial venous thr ombosis of left lower extremity I82.812 [facility] [address] [id number] [address] [place] [phone] Feb, [facility] [address] [facility] [id number] [address] [place] [id number] Feb, Other specified soft tissue disorders M79.89 and Pain in left leg M79.605 [facility] [address] [id number] [address] [place] [phone] Jan, Obstructive sleep apnea G47. 33 [facility] [address] [id number] [address] [place] [phone] Dec, Obstructive sleep apnea G47. 33 and Mood disorder F39 [facility] [address] [facility] [id number] [address] [place] [phone] Dec, [facility] [address] [facility] [id number] [address] [place] [phone] Dec, [facility] [address] [facility] [id number] [address] [place] [id number] Nov, Diabetes type 2, controlled E11.9 [facility] [address] [facility] [id number] [address] [place] [phone] Nov, Encounter for immunization Z 23 [facility] [address] [facility] [id number] [address] [place] [phone] Nov, Primary insomnia F51.01 [place] [address] [facility] [id number] [address] [place] [id number] 07 Oct, 2017 Medicare annual wellness vis it, subsequent Z00.00 and Mood disorder F39 [place] [address] [facility] [id number] [address] [place] [id number] Sep, Mood disorder F39 [place] [address] [place] [id number] [address] [place] [phone] Aug, Primary insomnia F51.01 and Urinary hesitancy R39.11 [place] [address] [facility] [id number] [address] [place] [phone] Aug, Primary insomnia F51.01 [place] [address] [facility] [id number] [address] [place] [id number] Jul, Diabetes type 2, controlled E11.9 ; Primary insomnia F51.01 and Mood disorder F39 [address] [id number] [id number] Jun, Mood disorder F39 [facility] [address] [id number] [place] [id number] Jun, [facility] [address] [facility] [id number] [address] [place] [phone] May, Nightmares F51.5 [facility] [address] [facility] [id number] [address] [place] [id number] May, Cognitive complaints R41.9 ; Unspecified mood [affective] disorder F39 and Primary insomnia F51.01 [facility] [address] [id number] [address] [place] [id number] Apr, Mood disorder F39 and Primar y insomnia F51.01 [facility] [address] [id number] [address] [place] [id number] Apr, Cognitive complaints R41.9 a nd Unspecified mood [affective] disorder F39 [facility] [address] [id number] [address] [place] [id number] Apr, Cognitive complaints R41.9 a nd Unspecified mood [affective] disorder F39 [facility] [address] [id number] [address] [place] [phone] March, [facility] [address] [facility] [id number] [address] [place] [phone] March, Diabetes type 2, controlled E11.9 and Essential hypertension I10 [facility] [address] [facility] [id number] [address] [place] [phone] March, Primary insomnia F51.01 ; Di abetes type 2, controlled E11.9 and Pain in right shoulder M25.511 [facility] [address] [facility] [id number] [address] [place] [phone] March, Cognitive complaints R41.9 a nd Unspecified mood [affective] disorder F39 [facility] [address] [id number] [address] [place] [phone] Feb, Other specified mental disor ders due to known physiological condition F06.8 [facility] [address] [id number] [address] [place] [phone] Jan, [facility] [address] [id number] [address] [place] [phone] Jan, [facility] [address] [facility] [id number] [address] [place] [phone] Dec, Diabetes type 2, controlled E11.9 ; Hypertension, benign I10 and Mood disorder F39 [facility] [address] [id number] [address] [place] [phone] 08 Dec, 2016 Medicare annual wellness vis it, initial Z00.00 [facility] [address] [facility] [id number] [address] [place] [phone] 05 Nov, 2016 Medicare welcome exam Z00.00 ; Encounter for immunization Z23 ; Medicare annual wellness visit, initial Z00.00 and Medicare annual wellness visit, subsequent Z00.00 [facility] [address] [id number] [address] [place] [phone] Oct, [facility] [address] [id number] [address] [place] [id number] Sep, [facility] [address] [facility] [id number] [address] [place] [phone] Aug, Encounter for immunization Z 23 and Callus L84 [facility] [address] [facility] [id number] [address] [place] [id number] Aug, [facility] [address] [facility] [id number] [address] [place] [phone] Jul, Diabetes type 2, controlled E11.9 [facility] [address] [facility] [id number] [address] [place] [id number] Jul, Diabetes type 2, controlled E11.9 [facility] [address] [id number] [address] [place] [id number] Jun, [facility] [address] [facility] [id number] [address] [place] [id number] Jun, Hypertension, benign I10 ; M ood disorder F39 and Diabetes type 2, controlled E11.9 [facility] [address] [id number] [address] [place] [phone] Jun, Mood disorder F39 [facility] [address] [facility] [id number] [address] [place] [phone] May, [facility] [address] [id number] [address] [place] [phone] May, Mood disorder F39 [facility] [address] [id number] [address] [place] [phone] May, Mood disorder F39 [facility] [address] [id number] [address] [place] [phone] Apr, Controlled type 2 diabetes m ellitus without complication, without long-term current use of insulin E11.9 ; Essential hypertension I10 and Pain in right shoulder M25.511 [facility] [address] [id number] [address] [place] [id number] Apr, Mood disorder F39 [facility] [address] [id number] [address] [place] [id number] Apr, Pre-op evaluation Z01.818 [facility] [address] [id number] [address] [place] [id number] March, Mood disorder F39 [facility] [address] [id number] [address] [place] [phone] Feb, [facility] [address] [id number] [address] [place] [id number] Feb, Shoulder pain, right M25.511 [facility] [address] [id number] [address] [place] [id number] Feb, Shoulder pain, right M25.511 [facility] [address] [id number] [address] [place] [id number] Feb, Shoulder pain, right M25.511 [facility] [address] [id number] [address] [place] [id number] Feb, Shoulder pain, right M25.511 [facility] [address] [id number] [address] [place] [id number] Jan, Shoulder pain, right M25.511 [facility] [address] [id number] [address] [place] [id number] Jan, Shoulder pain, right M25.511 [facility] [address] [place] [id number] [address] [place] [phone] 16 Jan, 2016 [facility] [address] [place] [id number] [place] [phone] Jan, Diabetes type 2, controlled E11.9 [facility] [id number] [place] [id number] Jan, Shoulder pain, right M25.511 ; Diabetes mellitus without mention of complication, type II or unspecified type, not stated as uncontrolled 250.00 and Diabetes type 2, controlled E11.9 [facility] [id number] [place] [phone] Jan, [place] [address] [id number] Jan, [place] [address] [id number] Dec, [place] [address] [id number] Oct, Callus of foot L84 [place] [address] [phone] Oct, Anxiety F41.9 ; Callus of fo ot L84 and Dysuria R30.0 [place] [address] [place] [id number] [place] [id number] Sep, Diabetes mellitus without me ntion of complication, type II or unspecified type, not stated as uncontrolled 250.00 [facility] [id number] [place] [phone] Aug, Diabetes mellitus without me ntion of complication, type II or unspecified type, not stated as uncontrolled 250.00 [place] [address] [id number] [place] [id number] Jul, [place] [address] [id number] [place] [id number] Jul, [facility] [address] [id number] [address] [place] [phone] Jul, Diabetes mellitus without me ntion of complication, type II or unspecified type, not stated as uncontrolled 250.00 ; Essential hypertension, benign 401.1 and Anxiety state, unspecified 300.00 [facility] [address] [id number] [address] [place] [id number] Jul, [facility] [address] [id number] [address] [place] [id number] Jun, [facility] [address] [id number] [address] [place] [id number] Jun, [facility] [address] [id number] [address] [place] [id number] May, [facility] [address] [id number] [address] [place] [id number] May, [facility] [address] [id number] [address] [place] [id number] Apr, [facility] [address] [id number] [address] [place] [id number] Apr, Mood disorder 296.90 [facility] [address] [id number] [address] [place] [id number] March, [facility] [address] [id number] [address] [place] [id number] Feb, [facility] [address] [id number] [address] [place] [id number] Feb, [facility] [address] [id number] [address] [place] [id number] Jan, [facility] [address] [id number] [address] [place] [id number] Jan, [facility] [address] [id number] [address] [place] [phone] Jan, [facility] [address] [id number] [address] [place] [address], [place] [address] Jan, [facility] [address] [id number] [address] [place] [address], [place] [address] Jan, [facility] [address] [id number] [address] [place] [address], [place] [address] Jan, [facility] [address] [id number] [address] [place] [address], [place] [address] Jan, [facility] [address] [id number] [address] [place] [address], [place] [address] Jan, [facility] [address] [id number] [address] [place] [address], [place] [address] Dec, [facility] [address] [id number] [address] [place] [address], [place] [address] Dec, [facility] [address] [id number] [address] [place] [address], [place] [address] Nov, [facility] [address] [id number] [address] [place] [address], [place] [address] Nov, [facility] [address] [id number] [address] [place] [address], [place] [address] Nov, [facility] [address] [id number] [address] [place] [address], [place] [address] Nov, [facility] [address] [id number] [address] [place] [address], [place] [address] Oct, [facility] [address] [id number] [address] [place] [address], [place] [address] Oct, [facility] [address] [id number] [address] [place] [address], [place] [address] Oct, [facility] [address] [id number] [address] [place] [address], [place] [address] Oct, [facility] [address] [id number] [address] [place] [address], [place] [address] Oct, [facility] [address] [id number] [address] [place] [address], [place] [address] 24 Oct, 2014 [facility] [address] [id number] [address] [place] [address], [place] [address] Oct, [facility] [address] [id number] [address] [place] [address], [place] [address] 17 Oct, 2014 [facility] [address] [id number] [address] [place] [address], [place] [address] 15 Oct, 2014 [facility] [address] [id number] [address] [place] [address], [place] [address] 15 Oct, 2014 [facility] [address] [id number] [address] [place] [address], [place] [address] Sep, [facility] [address] [id number] [address] [place] [address], [place] [address] Sep, [facility] [address] [id number] [address] [place] [address], [place] [address] 18 Sep, 2014 [facility] [address] [id number] [address] [place] [address], [place] [address] 18 Sep, 2014 [facility] [address] [id number] [address] [place] [address], [place] [address] 18 Sep, 2014 [facility] [address] [id number] [address] [place] [address], [place] [address] 18 Sep, 2014 [facility] [address] [id number] [address] [place] [address], [place] [address] 16 Aug, 2014 [facility] [address] [id number] [address] [place] [address], [place] [address] 16 Aug, 2014 [facility] [address] [id number] [address] [place] [address], [place] [address] 19 Jul, 2014 [facility] [address] [id number] [address] [place] [address], [place] [address] 19 Jul, 2014 [facility] [address] [id number] [address] [place] [address], [place] [address] Jun, [facility] [address] [id number] [facility] [place] [address] Jun, [facility] [address] [id number] [address] [place] [address], [place] [address] May, [facility] [address] [id number] [address] [place] [address], [place] [address] May, [facility] [address] [id number] [address] [place] [address], [place] [address] Apr, [facility] [address] [id number] [address] [place] [address], [place] [address] Apr, [facility] [address] [id number] [address] [place] [address], [place] [address] Apr, [facility] [address] [id number] [address] [place] [address], [place] [address] Apr, [facility] [address] [id number] [address] [place] [address], [place] [address] March, [facility] [address] [id number] [address] [place] [address], [place] [address] March, [facility] [address] [id number] [address] [place] [address], [place] [address] Jan, [facility] [address] [id number] [address] [place] [address], [place] [address] Jan, [facility] [address] [id number] [address] [place] [address], [place] [address] Jan, [facility] [address] [id number] [address] [place] [address], [place] [address] Jan, [facility] [address] [id number] [address] [place] [address], [place] [address] Jan, [facility] [address] [id number] [address] [place] [address], [place] [address] Jan, [facility] [address] [id number] [address] [place] [address], [place] [address] Dec, [facility] [address] [id number] [address] [place] [address], [place] [address] Dec, [facility] [address] [id number] [address] [place] [address], [place] [address] Oct, [facility] [address] [id number] [address] [place] [address], [place] [address] Oct, [facility] [address] [id number] [address] [place] [address], [place] [address] Oct, [facility] [address] [id number] [address] [place] [address], [place] [address] Oct, [facility] [address] [id number] [address] [place] [address], [place] [address] Jul, [facility] [address] [id number] [address] [place] [address], [place] [address] Jul, [facility] [address] [id number] [address] [place] [address], [place] [address] Jul, [facility] [address] [id number] [address] [place] [address], [place] [address] Jun, [facility] [address] [id number] [address] [place] [address], [place] [address] Jun, [facility] [address] [id number] [address] [place] [address], [place] [address] May, [facility] [address] [id number] [address] [place] [address], [place] [address] May, [facility] [address] [id number] [address] [place] [address], [place] [address] March, [facility] [address] [id number] [address] [place] [address], [place] [address] March, [facility] [address] [id number] [address] [place] [address], [place] [address] Feb, [facility] [address] [id number] [address] [place] [address], [place] [address] Feb, [facility] [address] [id number] [address] [place] [address], [place] [address] Jan, [facility] [address] [id number] [address] [place] [address], [place] [address] Dec, [facility] [address] [id number] [address] [place] [address], [place] [address] Dec, [facility] [address] [id number] [address] [place] [address], [place] [address] Dec, [facility] [address] [id number] [address] [place] [address], [place] [address] Dec, [facility] [address] [id number] [address] [place] [address], [place] [address] Dec, [facility] [address] [id number] [address] [place] [address], [place] [address] Nov, [facility] [address] [id number] [address] [place] [address], [place] [address] Oct, [facility] [address] [id number] [address] [place] [address], [place] [address] Oct, [facility] [address] [id number] [address] [place] [address], [place] [address] Aug, [facility] [address] [id number] [address] [place] [id number] Aug, [facility] [address] [id number] [address] [place] [address], [place] [address] Aug, [facility] [address] [id number] [address] [place] [address], [place] [address] Aug, [facility] [address] [id number] [address] [place] [address], [place] [address] Aug, [facility] [address] [id number] [address] [place] [id number] Jul, [facility] [address] [id number] [address] [place] [id number] Jul, [facility] [address] [id number] [address] [place] [id number] Jun, [facility] [address] [id number] [address] [place] [id number] Jun, [facility] [address] [id number] [address] [place] [id number] May, [facility] [address] [id number] [address] [place] [id number] May, [facility] [address] [id number] [address] [place] [id number] May, [facility] [address] [id number] [address] [place] [id number] Apr, [facility] [address] [id number] [address] [place] [id number] Apr, [facility] [address] [id number] [address] [place] [id number] March, [facility] [address] [id number] [address] [place] [id number] March, [facility] [address] [id number] [address] [place] [id number] Feb, [facility] [address] [id number] [address] [place] [id number] Feb, [facility] [address] [id number] [address] [place] [id number] Feb, [facility] [address] [id number] [address] [place] [id number] Feb, IMMUNIZATIONS No Known Immunizations SOCIAL HISTORY [...]
--- OUTSIDE RECORDS SUMMARY | 2020-06-17 08:40 | XMS REPORT ---
Author Author Barrie BUSTILLO Organization [facility] Address [address] [place] [address] Care Team Providers Care Aircraft Maintenance Director Name Role Phone BARRIE BUSTILLO Unavailable PROBLEMS Type Condition ICD9-CM Code XLU68-YF Code Onset Dates Condition S tatus SNOMED Code Problem Primary insomnia F51.01 Active 397 2004 Problem Diabetes type 2, controlled E11.9 Ac tive 68025790 Problem Urinary hesitancy R39.11 Active 59 32648 Problem Essential hypertension I10 Active 84341350 Problem 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.1 Active 997324206 Problem Obstructive sleep apnea G47.33 Active 69924670 Problem Benign prostatic hyperplasia with lower urinary tract symptoms N40.1 Active 305118260 Problem Controlled type 2 diabetes m ellitus without complication, without long- term current use of insulin E11.9 Active 438741421 Problem 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 Acti ve 94984047 Problem Panlobular emphysema J43.1 Active 1699545 Problem Hesitancy of micturition R39.11 Activ e 3120996 Problem Chronic fatigue R53.82 Active 8422 9001 Problem Acute superficial venous thrombosis of left lower extremit y I82.812 Active [id number] Problem Uncontrolled type 2 diabetes mellitus with hyperglycemia E11.65 Active 263230782 Problem Arthritis M19.90 Active 9637310 Problem EMIR (obstructive sleep apnea) G47.33 Active 10169326 Problem Mood disorder F39 Active 020551 05 ALLERGIES No Information ENCOUNTERS Encounter Location Date Diagnosis [facility] [address] [facility] [id number] [address] [place] [id number] Jun, [facility] [address] [facility] [id number] [address] [place] [id number] Jun, [facility] [address] [facility] [id number] [address] [place] [address] Jun, [place] [address] [id number] [address] [place] [id number] 16 May, 2020 Moderate episode of recurren t major depressive disorder F33.1 [place] [address] [id number] [address] [place] [id number] 03 May, 2020 [place] [address] [facility] [id number] [address] [place] [id number] 14 Apr, 2020 Encounter for screening labo ratory testing for COVID-19 virus Z11.59 [place] [address] [id number] [address] [place] [id number] 04 Apr, 2020 Moderate episode of recurren t major depressive disorder F33.1 [place] [address] [facility] [id number] [address] [place] [id number] 29 Mar, 2020 Diabetes type 2, controlled E11.9 ; Family history of early CAD Z82.49 ; Chest pain on exertion R07.9 and Chronic fatigue R53.82 [place] [address] [id number] [address] [place] [address] March, [place] [address] [id number] [address] [place] [id number] March, Moderate episode of recurren t major depressive disorder F33.1 [place] [address] [facility] [id number] [address] [place] [address] March, Moderate episode of recurren t major depressive disorder F33.1 [place] [address] [id number] [address] [place] [address] March, Foot callus L84 [place] [address] [id number] [address] [place] [id number] March, Moderate episode of recurren t major depressive disorder F33.1 [place] [address] [id number] [address] [place] [id number] Jan, Foot callus L84 [place] [address] [facility] [id number] [address] [place] [id number] 07 Dec, 2019 Moderate episode of recurren t major depressive disorder F33.1 [facility] [address] [id number] [address] [place] [id number] 04 Dec, 2019 Moderate episode of recurren t major depressive disorder F33.1 [facility] [address] [id number] [address] [place] [id number] 04 Dec, 2019 Moderate episode of recurren t major depressive disorder F33.1 [facility] [address] [id number] [address] [place] [id number] 16 Nov, 2019 Panlobular emphysema J43.1 ; Mood disorder F39 and Controlled type 2 diabetes mellitus without complication, without long-term current use of insulin E11.9 [facility] [address] [id number] [address] [place] [address] Nov, [place] [address] [facility] [id number] [address] [place] [id number] Nov, Increased sputum production R09.3 and EMIR (obstructive sleep apnea) G47.33 [facility] [address] [id number] [address] [place] [address] Oct, [facility] [address] [id number] [address] [place] [id number] Sep, [facility] [address] [id number] [address] [place] [id number] Sep, [facility] [address] [id number] [address] [place] [address] Sep, [facility] [address] [id number] [address] [place] [id number] Aug, Moderate episode of recurren t major depressive disorder F33.1 [facility] [address] [id number] [address] [place] [address] Aug, Moderate episode of recurren t major depressive disorder F33.1 [facility] [address] [id number] [address] [place] [address] Aug, Moderate episode of recurren t major depressive disorder F33.1 [facility] [address] [id number] [address] [place] [address] Jul, [facility] [address] [id number] [address] [place] [address] Jul, Foot callus L84 ; Uncontroll ed type 2 diabetes mellitus with hyperglycemia E11.65 ; Arthritis M19.90 ; Encounter for immunization Z23 ; Rib pain on right side R07.81 and Lumbar pain M54.5 [facility] [address] [id number] [address] [place] [address] Jul, [facility] [address] [id number] [address] [place] [id number] Jun, [facility] [address] [id number] [address] [place] [id number] Jun, [facility] [address] [id number] [address] [place] [id number] Jun, Callus of foot L84 [facility] [address] [id number] [address] [place] [id number] Jun, [facility] [address] [id number] [address] [place] [id number] Apr, Exercise counseling Z71.82 [facility] [address] [id number] [address] [place] [id number] March, Moderate episode of recurren t major depressive disorder F33.1 [facility] [address] [id number] [address] [place] [id number] March, Moderate episode of recurren t major depressive disorder F33.1 [facility] [address] [id number] [address] [place] [address] March, Exercise counseling Z71.82 [facility] [address] [id number] [address] [place] [id number] March, [facility] [address] [id number] [address] [place] [address] March, Exercise counseling Z71.82 [facility] [address] [id number] [address] [place] [address] March, Right otitis media with effu yousuf H65.91 ; 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 and Diabetes type 2, controlled E11.9 [place] [address] [id number] [address] [place] [address] March, Moderate episode of recurren t major depressive disorder F33.1 [place] [address] [id number] [address] [place] [address] March, Exercise counseling Z71.82 [place] [address] [facility] [id number] [address] [place] [address] March, Exercise counseling Z71.82 [place] [address] [id number] [address] [place] [address] March, Callus of foot L84 [place] [address] [id number] [address] [place] [id number] Feb, Moderate episode of recurren t major depressive disorder F33.1 [place] [address] [id number] [address] [place] [id number] Feb, [place] [address] [id number] [address] [place] [address] Feb, Moderate episode of recurren t major depressive disorder F33.1 [facility] [address] [id number] [address] [place] [address] Feb, Diabetes type 2, controlled E11.9 and Essential hypertension I10 [facility] [address] [id number] [address] [place] [id number] Jan, [facility] [address] [facility] [id number] [address] [place] [id number] Jan, Callus of foot L84 [place] [address] [facility] [id number] [address] [place] [id number] Jan, Moderate episode of recurren t major depressive disorder F33.1 [facility] [address] [facility] [id number] [address] [place] [id number] Jan, Moderate episode of recurren t major depressive disorder F33.1 [facility] [address] [facility] [id number] [address] [place] [id number] Dec, Moderate episode of recurren t major depressive disorder F33.1 [facility] [address] [facility] [id number] [address] [place] [address] Dec, Candidiasis of the esophagus B37.81 [facility] [address] [facility] [id number] [address] [place] [address] Dec, [facility] [address] [facility] [id number] [address] [place] [id number] Dec, Fecal occult blood test posi tive R19.5 and Anemia, unspecified type D64.9 [facility] [address] [facility] [id number] [address] [place] [id number] Nov, Stool color black K92.1 [facility] [address] [facility] [id number] [address] [place] [id number] Nov, Stool color black K92.1 [facility] [address] [facility] [id number] [address] [place] [address] Nov, Stool color black K92.1 [facility] [address] [facility] [id number] [address] [place] [address] Nov, [facility] [address] [facility] [id number] [address] [place] [address] Nov, Moderate episode of recurren t major depressive disorder F33.1 [facility] [address] [facility] [id number] [address] [place] [address] Oct, Moderate episode of recurren t major depressive disorder F33.1 [place] [address] [id number] [address] [place] [id number] 18 Oct, 2018 Callus of foot L84 and Contr olled type 2 diabetes mellitus without complication, without long-term current use of insulin E11.9 [place] [address] [id number] [address] [place] [id number] 10 Oct, 2018 Moderate episode of recurren t major depressive disorder F33.1 [place] [address] [id number] [address] [place] [id number] 17 Aug, 2018 Mood disorder F39 [place] [address] [id number] [address] [place] [id number] 05 Aug, 2018 Encounter for immunization Z 23 [place] [address] [id number] [address] [place] [id number] Jul, Moderate episode of recurren t major depressive disorder F33.1 [place] [address] [id number] [address] [place] [address] Jul, Moderate episode of recurren t major depressive disorder F33.1 [place] [address] [id number] [address] [place] [id number] May, [place] [address] [id number] [address] [place] [address] May, Moderate episode of recurren t major depressive disorder F33.1 [place] [address] [id number] [address] [place] [address] May, Moderate episode of recurren t major depressive disorder F33.1 [place] [address] [id number] [address] [place] [id number] Apr, Benign prostatic hyperplasia with lower urinary tract symptoms N40.1 and Hesitancy of micturition R39.11 [place] [address] [id number] [address] [place] [id number] Apr, Moderate episode of recurren t major depressive disorder F33.1 [place] [address] [id number] [address] [place] [id number] Apr, Unspecified mood [affective] disorder F39 and Primary insomnia F51.01 [facility] [address] [facility] [id number] [address] [place] [address] Apr, Primary insomnia F51.01 [facility] [address] [id number] [address] [place] [id number] March, Foot callus L84 [facility] [address] [facility] [id number] [address] [place] [id number] Feb, Medicare annual wellness vis it, initial Z00.00 [facility] [address] [facility] [id number] [address] [place] [id number] Feb, Acute superficial venous thr ombosis of left lower extremity I82.812 [facility] [address] [facility] [id number] [address] [place] [id number] Feb, [facility] [address] [facility] [id number] [address] [place] [id number] Feb, [facility] [address] [id number] [address] [place] [id number] Feb, Acute superficial venous thr ombosis of left lower extremity I82.812 [facility] [address] [facility] [id number] [address] [place] [id number] Feb, [facility] [address] [facility] [id number] [address] [place] [address] Feb, Other specified soft tissue disorders M79.89 and Pain in left leg M79.605 [facility] [address] [facility] [id number] [address] [place] [id number] Jan, Obstructive sleep apnea G47. 33 [facility] [address] [facility] [id number] [address] [place] [id number] Dec, Obstructive sleep apnea G47. 33 and Mood disorder F39 [facility] [address] [facility] [id number] [address] [place] [id number] Dec, [facility] [address] [facility] [id number] [address] [place] [id number] Dec, [facility] [address] [facility] [id number] [address] [place] [address] Nov, Diabetes type 2, controlled E11.9 [facility] [address] [facility] [id number] [address] [place] [address] Nov, Encounter for immunization Z 23 [facility] [address] [facility] [id number] [address] [place] [address] Nov, Primary insomnia F51.01 [facility] [address] [facility] [id number] [address] [place] [id number] 07 Oct, 2017 Medicare annual wellness vis it, subsequent Z00.00 and Mood disorder F39 [facility] [address] [facility] [id number] [address] [place] [address] Sep, Mood disorder F39 [facility] [address] [facility] [id number] [address] [place] [address] Aug, Primary insomnia F51.01 and Urinary hesitancy R39.11 [facility] [address] [facility] [id number] [address] [place] [address] Aug, Primary insomnia F51.01 [facility] [address] [facility] [id number] [address] [place] [address] Jul, Diabetes type 2, controlled E11.9 ; Primary insomnia F51.01 and Mood disorder F39 [facility] [address] [id number] [id number] Jun, Mood disorder F39 [facility] [address] [id number] LEODANMonika S [id number] Jun, [facility] [address] [facility] [id number] [address] [place] [address] May, Nightmares F51.5 [facility] [address] [id number] [address] [place] [address] May, Cognitive complaints R41.9 ; Unspecified mood [affective] disorder F39 and Primary insomnia F51.01 [facility] [address] [id number] [address] [place] [address] Apr, Mood disorder F39 and Primar y insomnia F51.01 [facility] [address] [id number] [address] [place] [address] Apr, Cognitive complaints R41.9 a nd Unspecified mood [affective] disorder F39 [facility] [address] [id number] [address] [place] [address] Apr, Cognitive complaints R41.9 a nd Unspecified mood [affective] disorder F39 [facility] [address] [id number] [address] [place] [id number] March, [facility] [address] [id number] [address] [place] [address] March, Diabetes type 2, controlled E11.9 and Essential hypertension I10 [facility] [address] [id number] [address] [place] [id number] March, Primary insomnia F51.01 ; Di abetes type 2, controlled E11.9 and Pain in right shoulder M25.511 [facility] [address] [id number] [address] [place] [address] March, Cognitive complaints R41.9 a nd Unspecified mood [affective] disorder F39 [facility] [address] [id number] [address] [place] [address] Feb, Other specified mental disor ders due to known physiological condition F06.8 [facility] [address] [id number] [address] [place] [address] Jan, [facility] [address] [id number] [address] [place] [id number] Jan, [facility] [address] [id number] [address] [place] [id number] 24 Dec, 2016 Diabetes type 2, controlled E11.9 ; Hypertension, benign I10 and Mood disorder F39 [facility] [address] [id number] [address] [place] [id number] 08 Dec, 2016 Medicare annual wellness vis it, initial Z00.00 [facility] [address] [id number] [address] [place] [id number] 05 Nov, 2016 Medicare welcome exam Z00.00 ; Encounter for immunization Z23 ; Medicare annual wellness visit, initial Z00.00 and Medicare annual wellness visit, subsequent Z00.00 [facility] [address] [id number] [address] [place] [address] Oct, [facility] [address] [id number] [address] [place] [id number] Sep, [facility] [address] [id number] [address] [place] [id number] Aug, Encounter for immunization Z 23 and Callus L84 [facility] [address] [id number] [address] [place] [id number] Aug, [facility] [address] [id number] [address] [place] [id number] Jul, Diabetes type 2, controlled E11.9 [facility] [address] [id number] [address] [place] [address] Jul, Diabetes type 2, controlled E11.9 [facility] [address] [id number] [address] [place] [id number] Jun, [facility] [address] [id number] [address] [place] [address] Jun, Hypertension, benign I10 ; M ood disorder F39 and Diabetes type 2, controlled E11.9 [facility] [address] [id number] [address] [place] [id number] Jun, Mood disorder F39 [facility] [address] [id number] [address] [place] [id number] May, [facility] [address] [id number] [address] [place] [address] May, Mood disorder F39 [facility] [address] [id number] [address] [place] [id number] May, Mood disorder F39 [facility] [address] [id number] [address] [place] [id number] Apr, Controlled type 2 diabetes m [place] without complication, without long-term current use of insulin E11.9 ; Essential hypertension I10 and Pain in right shoulder M25.511 [facility] [address] [id number] [address] [place] [id number] Apr, Mood disorder F39 [facility] [address] [id number] [address] [place] [address] Apr, Pre-op evaluation Z01.818 [facility] [address] [id number] [address] [place] [id number] March, Mood disorder F39 [facility] [address] [id number] [address] [place] [id number] Feb, [facility] [address] [id number] [address] [place] [id number] Feb, Shoulder pain, right M25.511 [facility] [address] [id number] [address] [place] [id number] Feb, Shoulder pain, right M25.511 [facility] [address] [id number] [address] [place] [id number] Feb, Shoulder pain, right M25.511 [facility] [address] [id number] [address] [place] [address] Feb, Shoulder pain, right M25.511 [facility] [address] [id number] [address] [place] [id number] Jan, Shoulder pain, right M25.511 [place] [address] [address] Jan, Shoulder pain, right M25.511 [place] [address] [address] Jan, [place] [address] [address] Jan, Diabetes type 2, controlled E11.9 [place] [address] [address] Jan, Shoulder pain, right M25.511 ; Diabetes mellitus without mention of complication, type II or unspecified type, not stated as uncontrolled 250.00 and Diabetes type 2, controlled E11.9 [place] [address] [address] Jan, [place] [address] [address] Jan, [place] [address] [address] Dec, [place] [address] [address] Oct, Callus of foot L84 [place] [address] [address] Oct, Anxiety F41.9 ; Callus of fo ot L84 and Dysuria R30.0 [place] [address] [address] [address] [address] Sep, Diabetes mellitus without me ntion of complication, type II or unspecified type, not stated as uncontrolled 250.00 [place] [address] [address] Aug, Diabetes mellitus without me ntion of complication, type II or unspecified type, not stated as uncontrolled 250.00 [place] [address] [address] Jul, [facility] [address] [id number] [address] [place] [address] Jul, [facility] [address] [id number] [address] [place] [address] Jul, Diabetes mellitus without me ntion of complication, type II or unspecified type, not stated as uncontrolled 250.00 ; Essential hypertension, benign 401.1 and Anxiety state, unspecified 300.00 [facility] [address] [id number] [address] [place] [address] Jul, [facility] [address] [id number] [address] [place] [address] Jun, [facility] [address] [id number] [address] [place] [address] Jun, [facility] [address] [id number] [address] [place] [address] May, [facility] [address] [id number] [address] [place] [address] May, [facility] [address] [id number] [address] [place] [address] Apr, [facility] [address] [facility] [id number] [address] [place] [address] Apr, Mood disorder 296.90 [facility] [address] [id number] [address] [place] [address] March, [facility] [address] [id number] [address] [place] [address] Feb, [facility] [address] [id number] [address] [place] [address] Feb, [facility] [address] [facility] [id number] [address] [place] [address] Jan, [facility] [address] [id number] [address] [place] [address] Jan, [facility] [address] [id number] [address] [place] [address], [place] [address] Jan, [facility] [address] [id number] [address] [place] [address], [place] [address] Jan, [facility] [address] [id number] [address] [place] [address], [place] [address] Jan, [facility] [address] [id number] [address] [place] [address], [place] [address] Jan, [facility] [address] [id number] [address] [place] [address], [place] [address] Jan, [facility] [address] [id number] [address] [place] [address], [place] [address] Jan, [facility] [address] [id number] [address] [place] [address], [place] [address] Dec, [facility] [address] [id number] [address] [place] [address], [place] [address] Dec, [facility] [address] [id number] [address] [place] [address], [place] [address] Nov, [facility] [address] [id number] [address] [place] [address], [place] [address] Nov, [facility] [address] [id number] [address] [place] [address], [place] [address] Nov, [facility] [address] [id number] [address] [place] [address], [place] [address] Nov, [facility] [address] [id number] [address] [place] [address], [place] [address] Oct, [facility] [address] [id number] [address] [place] [address], [place] [address] Oct, [facility] [address] [id number] [address] [place] [address], [place] [address] Oct, [facility] [address] [id number] [address] [place] [address] 24 Oct, 2014 [facility] [address] [id number] [address] [place] [address], [place] [address] Oct, [facility] [address] [id number] [address] [place] [address], [place] [address] 24 Oct, 2014 [facility] [address] [id number] [address] [place] [address], [place] [address] 17 Oct, 2014 [facility] [address] [id number] [address] [place] [address], [place] [address] 17 Oct, 2014 [facility] [address] [id number] [address] [place] [address], [place] [address] 15 Oct, 2014 [facility] [address] [id number] [address] [place] [address], [place] [address] 15 Oct, 2014 [facility] [address] [id number] [address] [place] [address], [place] [address] 19 Sep, 2014 [facility] [address] [id number] [address] [place] [address], [place] [address] 19 Sep, 2014 [facility] [address] [id number] [address] [place] [address], [place] [address] 18 Sep, 2014 [facility] [address] [id number] [address] [place] [address], [place] [address] 18 Sep, 2014 [facility] [address] [id number] [address] [place] [address], [place] [address] 18 Sep, 2014 [facility] [address] [id number] [address] [place] [address] 18 Sep, 2014 [facility] [address] [id number] [address] [place] [address], [place] [address] 16 Aug, 2014 [facility] [address] [id number] [address] [place] [address], [place] [address] 16 Aug, 2014 [facility] [address] [id number] [address] [place] [address], [place] [address] 19 Jul, 2014 [facility] [address] [id number] [facility] [place] [address] Jul, [facility] [address] [id number] [facility] [place] [address] Jun, [facility] [address] [id number] [address] [place] [address], [place] [address] Jun, [facility] [address] [id number] [address] [place] [address], [place] [address] May, [facility] [address] [id number] [address] [place] [address], [place] [address] May, [facility] [address] [id number] [address] [place] [address], [place] [address] Apr, [facility] [address] [id number] [address] [place] [address], [place] [address] Apr, [facility] [address] [id number] [address] [place] [address], [place] [address] Apr, [facility] [address] [id number] [address] [place] [address], [place] [address] Apr, [facility] [address] [id number] [address] [place] [address], [place] [address] March, [facility] [address] [id number] [address] [place] [address], [place] [address] March, [facility] [address] [id number] [address] [place] [address], [place] [address] Jan, [facility] [address] [id number] [address] [place] [address], [place] [address] Jan, [facility] [address] [id number] [address] [place] [address], [place] [address] Jan, [facility] [address] [id number] [address] [place] [address], [place] [address] Jan, [facility] [address] [id number] [address] [place] [address], [place] [address] Jan, [facility] [address] [id number] [address] [place] [address], [place] [address] Jan, [facility] [address] [id number] [address] [place] [address], [place] [address] Dec, [facility] [address] [id number] [address] [place] [address], [place] [address] Dec, [facility] [address] [id number] [address] [place] [address], [place] [address] Oct, [facility] [address] [id number] [address] [place] [address], [place] [address] Oct, [facility] [address] [id number] [address] [place] [address], [place] [address] Oct, [facility] [address] [id number] [address] [place] [address], [place] [address] Oct, [facility] [address] [id number] [address] [place] [address], [place] [address] Jul, [facility] [address] [id number] [address] [place] [address], [place] [address] Jul, [facility] [address] [id number] [address] [place] [address], [place] [address] Jul, [facility] [address] [id number] [address] [place] [address], [place] [address] Jun, [facility] [address] [id number] [address] [place] [address], [place] [address] Jun, [facility] [address] [id number] [address] [place] [address], [place] [address] May, [facility] [address] [id number] [address] [place] [address], [place] [address] May, [facility] [address] [id number] [address] [place] [address], [place] [address] March, [facility] [address] [id number] [address] [place] [address], [place] [address] March, [facility] [address] [id number] [address] [place] [address], [place] [address] Feb, [facility] [address] [id number] [address] [place] [address], [place] [address] Feb, [facility] [address] [id number] [address] [place] [address], [place] [address] Jan, [facility] [address] [id number] [address] [place] [address], [place] [address] Dec, [facility] [address] [id number] [address] [place] [address], [place] [address] Dec, [facility] [address] [id number] [address] [place] [address], [place] [address] 15 Dec, 2012 [facility] [address] [id number] [address] [place] [address], [place] [address] Dec, [facility] [address] [id number] [address] [place] [address], [place] [address] Dec, [facility] [address] [id number] [address] [place] [address], [place] [address] Nov, [facility] [address] [id number] [address] [place] [address] Oct, [facility] [address] [id number] [address] [place] [address], [place] [address] Oct, [facility] [address] [id number] [address] [place] [address] Aug, [facility] [address] [id number] [address] [place] [address], [place] [address] Aug, [facility] [address] [id number] [address] [place] [address], [place] [address] Aug, [facility] [address] [id number] [address] [place] [address] Aug, [facility] [address] [id number] [address] [place] [address], [place] [address] Aug, [facility] [address] [id number] [address] [place] [address], [place] [address] Jul, [facility] [address] [id number] [address] [place] [address], [place] [address] Jul, [facility] [address] [id number] [address] [place] [address], [place] [address] Jun, [facility] [address] [id number] [address] [place] [address], [place] [address] Jun, [facility] [address] [id number] [address] [place] [address], [place] [address] May, [facility] [address] [id number] [address] [place] [address], [place] [address] May, [facility] [address] [id number] [address] [place] [address], [place] [address] May, [facility] [address] [id number] [address] [place] [address], [place] [address] Apr, [facility] [address] [id number] [address] [place] [address], [place] [address] Apr, [facility] [address] [id number] [address] [place] [address], [place] [address] March, [facility] [address] [id number] [address] [place] [address], [place] [address] March, [facility] [address] [id number] [address] [place] [address], [place] [address] Feb, [facility] [address] [id number] [address] [place] [address], [place] [address] 17 Feb, 2012 [facility] [address] [id number] [address] [place] [address], [place] [address] Feb, [facility] [address] [id number] [address] [place] [address] [place] [address] Feb, IMMUNIZATIONS No Known Immunizations SOCIAL HISTORY Never Assessed REASON FOR VISIT PLAN OF CARE VITAL SIGNS Height 71 in 2013-10-17 Weight 250.7 lbs 2013-10-17 Temperature 97.5 degrees Fahrenheit 2013-10-17 Heart Rate 70 bpm 2013-10-17 Respiratory Rate 18 2013-10-17 Blood pressure systolic 144 mmHg 2013-10-17 Blood pressure diastolic 80 mmHg 2013-10-17 MEDICATIONS Unknown Medications RESULTS No Results PROCEDURES Procedure Date Ordered Result Body Site GLYCATED HEMOGLOBIN TEST Oct 17, 2013 INSTRUCTIONS MEDICATIONS ADMINISTERED No Known Medications [...]
--- OUTSIDE RECORDS SUMMARY | 2020-06-17 08:40 | XMS REPORT ---
Author Author Barrie SIMMONS Organization [facility] Address [address] [place] [address] Care Team Providers Care Fire Protection Engineering Technician Name Role Phone JOYCE SIMMONS Unavailable PROBLEMS Type Condition ICD9-CM Code VIA91-BI Code Onset Dates Condition S tatus SNOMED Code Problem Primary insomnia F51.01 Active 397 2004 Problem Diabetes type 2, controlled E11.9 Ac tive 95132367 Problem Urinary hesitancy R39.11 Active 59 30051 Problem Essential hypertension I10 Active 89560083 Problem 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.1 Active 240006251 Problem Obstructive sleep apnea G47.33 Active 73351957 Problem Benign prostatic hyperplasia with lower urinary tract symptoms N40.1 Active 312124867 Problem Controlled type 2 diabetes m ellitus without complication, without long- term current use of insulin E11.9 Active 698699021 Problem 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 Acti ve 92877209 Problem Panlobular emphysema J43.1 Active 5836051 Problem Hesitancy of micturition R39.11 Activ e 9673581 Problem Chronic fatigue R53.82 Active 8422 9001 Problem Acute superficial venous thrombosis of left lower extremit y I82.812 Active [id number] Problem Uncontrolled type 2 diabetes mellitus with hyperglycemia E11.65 Active 102483538 Problem Arthritis M19.90 Active 3919868 Problem EMIR (obstructive sleep apnea) G47.33 Active 99833392 Problem Mood disorder F39 Active 329608 05 ALLERGIES No Information ENCOUNTERS Encounter Location Date Diagnosis [facility] [address] [facility] [id number] [address] [place] [phone] 08 Jul, 2020 [facility] [address] [facility] [id number] [address] [place] [phone] Jun, [facility] [address] [facility] [id number] [address] [place] [phone] May, [facility] [address] [id number] [address] [place] [id number] 14 Apr, 2020 Encounter for screening labo ratory testing for COVID-19 virus Z11.59 [facility] [address] [id number] [address] [place] [phone] 04 Apr, 2020 Moderate episode of recurren t major depressive disorder F33.1 [place] [address] [facility] [id number] [address] [place] [phone] 29 Mar, 2020 Diabetes type 2, controlled E11.9 ; Family history of early CAD Z82.49 ; Chest pain on exertion R07.9 and Chronic fatigue R53.82 [place] [address] [id number] [address] [place] [phone] 14 Mar, 2020 [place] [address] [facility] [id number] [address] [place] [phone] March, Moderate episode of recurren t major depressive disorder F33.1 [place] [address] [id number] [address] [place] [phone] March, Moderate episode of recurren t major depressive disorder F33.1 [place] [address] [id number] [address] [place] [phone] March, Foot callus L84 [place] [address] [id number] [address] [place] [phone] March, Moderate episode of recurren t major depressive disorder F33.1 [place] [address] [id number] [address] [place] [id number] Jan, Foot callus L84 [place] [address] [id number] [address] [place] [phone] 07 Dec, 2019 Moderate episode of recurren t major depressive disorder F33.1 [place] [address] [id number] [address] [place] [phone] 04 Dec, 2019 Moderate episode of recurren t major depressive disorder F33.1 [place] [address] [id number] [address] [place] [phone] Dec, Moderate episode of recurren t major depressive disorder F33.1 [facility] [address] [id number] [address] [place] [id number] Nov, Panlobular emphysema J43.1 ; Mood disorder F39 and Controlled type 2 diabetes mellitus without complication, without long-term current use of insulin E11.9 [facility] [address] [id number] [address] [place] [phone] Nov, [facility] [address] [id number] [address] [place] [phone] Nov, Increased sputum production R09.3 and EMIR (obstructive sleep apnea) G47.33 [facility] [address] [id number] [address] [place] [phone] Oct, [facility] [address] [id number] [address] [place] [phone] Sep, [facility] [address] [id number] [address] [place] [phone] Sep, [facility] [address] [id number] [address] [place] [phone] Sep, [facility] [address] [id number] [address] [place] [phone] Aug, Moderate episode of recurren t major depressive disorder F33.1 [facility] [address] [id number] [address] [place] [phone] Aug, Moderate episode of recurren t major depressive disorder F33.1 [facility] [address] [id number] [address] [place] [phone] Aug, Moderate episode of recurren t major depressive disorder F33.1 [facility] [address] [id number] [address] [place] [phone] Jul, [facility] [address] [id number] [address] [place] [phone] Jul, Foot callus L84 ; Uncontroll ed type 2 diabetes mellitus with hyperglycemia E11.65 ; Arthritis M19.90 ; Encounter for immunization Z23 ; Rib pain on right side R07.81 and Lumbar pain M54.5 [facility] [address] [id number] [address] [place] [phone] Jul, [facility] [address] [id number] [address] [place] [id number] Jun, [facility] [address] [id number] [address] [place] [phone] Jun, [facility] [address] [id number] [address] [place] [phone] Jun, Callus of foot L84 [facility] [address] [facility] [id number] [address] [place] [phone] Jun, [facility] [address] [facility] [id number] [address] [place] [phone] Apr, Exercise counseling Z71.82 [place] [address] [facility] [id number] [address] [place] [phone] March, Moderate episode of recurren t major depressive disorder F33.1 [facility] [address] [facility] [id number] [address] [place] [phone] March, Moderate episode of recurren t major depressive disorder F33.1 [facility] [address] [facility] [id number] [address] [place] [phone] March, Exercise counseling Z71.82 [facility] [address] [facility] [id number] [address] [place] [phone] March, [facility] [address] [facility] [id number] [address] [place] [phone] March, Exercise counseling Z71.82 [facility] [address] [facility] [id number] [address] [place] [id number] March, Right otitis media with effu yousuf H65.91 ; 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 and Diabetes type 2, controlled E11.9 [facility] [address] [id number] [address] [place] [phone] March, Moderate episode of recurren t major depressive disorder F33.1 [facility] [address] [id number] [address] [place] [id number] March, Exercise counseling Z71.82 [facility] [address] [id number] [address] [place] [phone] March, Exercise counseling Z71.82 [place] [address] [id number] [address] [place] [phone] March, Callus of foot L84 [place] [address] [id number] [address] [place] [phone] Feb, Moderate episode of recurren t major depressive disorder F33.1 [facility] [address] [id number] [address] [place] [id number] Feb, [facility] [address] [id number] [address] [place] [phone] Feb, Moderate episode of recurren t major depressive disorder F33.1 [facility] [address] [id number] [address] [place] [phone] Feb, Diabetes type 2, controlled E11.9 and Essential hypertension I10 [facility] [address] [id number] [address] [place] [phone] Jan, [facility] [address] [id number] [address] [place] [phone] Jan, Callus of foot L84 [facility] [address] [facility] [id number] [address] [place] [phone] Jan, Moderate episode of recurren t major depressive disorder F33.1 [facility] [address] [id number] [address] [place] [phone] Jan, Moderate episode of recurren t major depressive disorder F33.1 [facility] [address] [facility] [id number] [address] [place] [phone] Dec, Moderate episode of recurren t major depressive disorder F33.1 [facility] [address] [facility] [id number] [address] [place] [phone] 11 Dec, 2018 Candidiasis of the esophagus B37.81 [facility] [address] [facility] [id number] [address] [place] [phone] Dec, [facility] [address] [facility] [id number] [address] [place] [phone] 04 Dec, 2018 Fecal occult blood test posi tive R19.5 and Anemia, unspecified type D64.9 [place] [address] [facility] [id number] [address] [place] [phone] Nov, Stool color black K92.1 [place] [address] [facility] [id number] [address] [place] [phone] Nov, Stool color black K92.1 [place] [address] [facility] [id number] [address] [place] [phone] Nov, Stool color black K92.1 [facility] [address] [facility] [id number] [address] [place] [phone] Nov, [facility] [address] [facility] [id number] [address] [place] [phone] Nov, Moderate episode of recurren t major depressive disorder F33.1 [facility] [address] [facility] [id number] [address] [place] [phone] Oct, Moderate episode of recurren t major depressive disorder F33.1 [place] [address] [facility] [id number] [address] [place] [id number] 18 Oct, 2018 Callus of foot L84 and Contr olled type 2 diabetes mellitus without complication, without long-term current use of insulin E11.9 [facility] [address] [id number] [address] [place] [phone] Oct, Moderate episode of recurren t major depressive disorder F33.1 [facility] [address] [id number] [address] [place] [phone] 17 Aug, 2018 Mood disorder F39 [facility] [address] [id number] [address] [place] [id number] 05 Aug, 2018 Encounter for immunization Z 23 [facility] [address] [id number] [address] [place] [phone] 26 Jul, 2018 Moderate episode of recurren t major depressive disorder F33.1 [facility] [address] [id number] [address] [place] [phone] 24 Jul, 2018 Moderate episode of recurren t major depressive disorder F33.1 [facility] [address] [facility] [id number] [address] [place] [phone] May, [facility] [address] [facility] [id number] [address] [place] [phone] May, Moderate episode of recurren t major depressive disorder F33.1 [facility] [address] [id number] [address] [place] [phone] May, Moderate episode of recurren t major depressive disorder F33.1 [facility] [address] [facility] [id number] [address] [place] [phone] Apr, Benign prostatic hyperplasia with lower urinary tract symptoms N40.1 and Hesitancy of micturition R39.11 [facility] [address] [id number] [address] [place] [phone] Apr, Moderate episode of recurren t major depressive disorder F33.1 [facility] [address] [facility] [id number] [address] [place] [phone] Apr, Unspecified mood [affective] disorder F39 and Primary insomnia F51.01 [facility] [address] [facility] [id number] [address] [place] [id number] 08 Gama, 2018 Primary insomnia F51.01 [facility] [address] [id number] [address] [place] [phone] March, Foot callus L84 [facility] [address] [id number] [address] [place] [phone] Feb, Medicare annual wellness vis it, initial Z00.00 [facility] [address] [id number] [address] [place] [phone] Feb, Acute superficial venous thr ombosis of left lower extremity I82.812 [facility] [address] [id number] [address] [place] [phone] Feb, [facility] [address] [id number] [address] [place] [id number] Feb, [facility] [address] [facility] [id number] [address] [place] [phone] Feb, Acute superficial venous thr ombosis of left lower extremity I82.812 [facility] [address] [id number] [address] [place] [phone] Feb, [facility] [address] [facility] [id number] [address] [place] [phone] Feb, Other specified soft tissue disorders M79.89 and Pain in left leg M79.605 [facility] [address] [facility] [id number] [address] [place] [phone] Jan, Obstructive sleep apnea G47. 33 [facility] [address] [facility] [id number] [address] [place] [phone] Dec, Obstructive sleep apnea G47. 33 and Mood disorder F39 [facility] [address] [id number] [address] [place] [phone] Dec, [facility] [address] [id number] [address] [place] [phone] Dec, [facility] [address] [facility] [id number] [address] [place] [phone] Nov, Diabetes type 2, controlled E11.9 [facility] [address] [facility] [id number] [address] [place] [phone] Nov, Encounter for immunization Z 23 [facility] [address] [facility] [id number] [address] [place] [phone] Nov, Primary insomnia F51.01 [facility] [address] [facility] [id number] [address] [place] [phone] 07 Oct, 2017 Medicare annual wellness vis it, subsequent Z00.00 and Mood disorder F39 [facility] [address] [facility] [id number] [address] [place] [phone] Sep, Mood disorder F39 [place] [address] [facility] [id number] [address] [place] [phone] Aug, Primary insomnia F51.01 and Urinary hesitancy R39.11 [facility] [address] [facility] [id number] [address] [place] [phone] Aug, Primary insomnia F51.01 [facility] [address] [facility] [id number] [address] [place] [phone] 07 Jul, 2017 Diabetes type 2, controlled E11.9 ; Primary insomnia F51.01 and Mood disorder F39 [place] [id number] [facility] [id number] [id number] Jun, Mood disorder F39 [facility] [address] [id number] [place] [id number] Jun, [facility] [address] [facility] [id number] [address] [place] [phone] May, Nightmares F51.5 [facility] [address] [facility] [id number] [address] [place] [phone] May, Cognitive complaints R41.9 ; Unspecified mood [affective] disorder F39 and Primary insomnia F51.01 [facility] [address] [facility] [id number] [address] [place] [phone] Apr, Mood disorder F39 and Primar y insomnia F51.01 [facility] [address] [id number] [address] [place] [phone] Apr, Cognitive complaints R41.9 a nd Unspecified mood [affective] disorder F39 [facility] [address] [id number] [address] [place] [phone] Apr, Cognitive complaints R41.9 a nd Unspecified mood [affective] disorder F39 [facility] [address] [id number] [address] [place] [phone] March, [facility] [address] [id number] [address] [place] [phone] March, Diabetes type 2, controlled E11.9 and Essential hypertension I10 [facility] [address] [facility] [id number] [address] [place] [phone] March, Primary insomnia F51.01 ; Di abetes type 2, controlled E11.9 and Pain in right shoulder M25.511 [facility] [address] [id number] [address] [place] [phone] March, Cognitive complaints R41.9 a nd Unspecified mood [affective] disorder F39 [facility] [address] [id number] [address] [place] [phone] Feb, Other specified mental disor ders due to known physiological condition F06.8 [facility] [address] [facility] [id number] [address] [place] [phone] Jan, [facility] [address] [id number] [address] [place] [phone] Jan, [facility] [address] [facility] [id number] [address] [place] [phone] Dec, Diabetes type 2, controlled E11.9 ; Hypertension, benign I10 and Mood disorder F39 [facility] [address] [facility] [id number] [address] [place] [phone] 08 Dec, 2016 Medicare annual wellness vis it, initial Z00.00 [facility] [address] [id number] [address] [place] [phone] 05 Nov, 2016 Medicare welcome exam Z00.00 ; Encounter for immunization Z23 ; Medicare annual wellness visit, initial Z00.00 and Medicare annual wellness visit, subsequent Z00.00 [facility] [address] [id number] [address] [place] [phone] Oct, [facility] [address] [id number] [address] [place] [phone] Sep, [facility] [address] [id number] [address] [place] [phone] Aug, Encounter for immunization Z 23 and Callus L84 [facility] [address] [id number] [address] [place] [phone] Aug, [facility] [address] [id number] [address] [place] [phone] Jul, Diabetes type 2, controlled E11.9 [facility] [address] [id number] [address] [place] [phone] Jul, Diabetes type 2, controlled E11.9 [facility] [address] [id number] [address] [place] [phone] Jun, [facility] [address] [id number] [address] [place] [phone] Jun, Hypertension, benign I10 ; M ood disorder F39 and Diabetes type 2, controlled E11.9 [facility] [address] [id number] [address] [place] [phone] Jun, Mood disorder F39 [facility] [address] [id number] [address] [place] [phone] May, [facility] [address] [id number] [address] [place] [phone] May, Mood disorder F39 [facility] [address] [id number] [address] [place] [phone] May, Mood disorder F39 [facility] [address] [id number] [address] [place] [phone] Apr, Controlled type 2 diabetes m [place] without complication, without long-term current use of insulin E11.9 ; Essential hypertension I10 and Pain in right shoulder M25.511 [facility] [address] [id number] [address] [place] [phone] Apr, Mood disorder F39 [facility] [address] [id number] [address] [place] [phone] Apr, Pre-op evaluation Z01.818 [facility] [address] [id number] [address] [place] [id number] March, Mood disorder F39 [facility] [address] [id number] [address] [place] [id number] Feb, [facility] [address] [id number] [address] [place] [phone] Feb, Shoulder pain, right M25.511 [facility] [address] [id number] [address] [place] [id number] Feb, Shoulder pain, right M25.511 [facility] [address] [id number] [address] [place] [phone] Feb, Shoulder pain, right M25.511 [facility] [address] [id number] [address] [place] [id number] Feb, Shoulder pain, right M25.511 [facility] [address] [id number] [address] [place] [id number] Jan, Shoulder pain, right M25.511 [facility] [address] [id number] [address] [place] [id number] Jan, Shoulder pain, right M25.511 [facility] [address] [id number] [address] [place] [id number] Jan, [place] [address] [id number] Jan, Diabetes type 2, controlled E11.9 [place] [address] [id number] Jan, Shoulder pain, right M25.511 ; Diabetes mellitus without mention of complication, type II or unspecified type, not stated as uncontrolled 250.00 and Diabetes type 2, controlled E11.9 [place] [address] [address] Jan, [place] [address] [id number] Jan, [place] [address] [address] Dec, [place] [address] [id number] Oct, Callus of foot L84 [place] [address] [address] Oct, Anxiety F41.9 ; Callus of fo ot L84 and Dysuria R30.0 [place] [address] [address] Sep, Diabetes mellitus without me ntion of complication, type II or unspecified type, not stated as uncontrolled 250.00 [place] [address] [address] Aug, Diabetes mellitus without me ntion of complication, type II or unspecified type, not stated as uncontrolled 250.00 [place] [address] [address] Jul, [place] [address] [id number] Jul, [place] [address] [id number] Jul, Diabetes mellitus without me ntion of complication, type II or unspecified type, not stated as uncontrolled 250.00 ; Essential hypertension, benign 401.1 and Anxiety state, unspecified 300.00 [facility] [address] [id number] [address] [place] [id number] Jul, [facility] [address] [address] [id number] [address] [place] [id number] Jun, [facility] [address] [id number] [address] [place] [id number] Jun, [facility] [address] [id number] [address] [place] [id number] May, [facility] [address] [id number] [address] [place] [id number] May, [facility] [address] [id number] [address] [place] [phone] Apr, [facility] [address] [id number] [address] [place] [id number] Apr, Mood disorder 296.90 [facility] [address] [id number] [address] [place] [id number] March, [facility] [address] [id number] [address] [place] [id number] Feb, [facility] [address] [id number] [address] [place] [id number] Feb, [facility] [address] [id number] [address] [place] [id number] Jan, [facility] [address] [id number] [address] [place] [id number] Jan, [facility] [address] [id number] [address] [place] [phone] Jan, [facility] [address] [id number] [address] [place] [id number] Jan, [facility] [address] [id number] [address] [place] [address], [place] [id number] Jan, [facility] [address] [id number] [address] [place] [address], [place] [id number] Jan, [facility] [address] [id number] [address] [place] [address], [place] [id number] Jan, [facility] [address] [id number] [address] [place] [address], [place] [id number] Jan, [facility] [address] [id number] [address] [place] [address], [place] [id number] Dec, [facility] [address] [id number] [address] [place] [address], [place] [id number] Dec, [facility] [address] [id number] [address] [place] [address], [place] [address] Nov, [facility] [address] [id number] [address] [place] [address], [place] [id number] Nov, [facility] [address] [id number] [address] [place] [address], [place] [address] Nov, [facility] [address] [id number] [address] [place] [address], [place] [id number] Nov, [facility] [address] [id number] [address] [place] [address], [place] [id number] Oct, [facility] [address] [id number] [address] [place] [address], [place] [id number] Oct, [facility] [address] [id number] [address] [place] [address], [place] [id number] Oct, [facility] [address] [id number] [address] [place] [address], [place] [id number] Oct, [facility] [address] [id number] [address] [place] [address], [place] [id number] Oct, [facility] [address] [id number] [address] [place] [address], [place] [id number] 24 Oct, 2014 [facility] [address] [id number] [address] [place] [address], [place] [id number] 17 Oct, 2014 [facility] [address] [id number] [address] [place] [address], [place] [id number] 17 Oct, 2014 [facility] [address] [id number] [address] [place] [address], [place] [id number] 15 Oct, 2014 [facility] [address] [id number] [address] [place] [address], [place] [id number] 15 Oct, 2014 [facility] [address] [id number] [address] [place] [address], [place] [id number] Sep, [facility] [address] [id number] [address] [place] [address], [place] [id number] Sep, [facility] [address] [id number] [address] [place] [address], [place] [address] Sep, [facility] [address] [id number] [address] [place] [address], [place] [address] Sep, [facility] [address] [id number] [address] [place] [address], [place] [id number] Sep, [facility] [address] [id number] [address] [place] [address], [place] [id number] Sep, [facility] [address] [id number] [address] [place] [address], [place] [id number] 16 Aug, 2014 [facility] [address] [id number] [address] [place] [id number] Aug, [facility] [address] [id number] [address] [place] [address], [place] [address] Jul, [facility] [address] [id number] [address] [place] [address], [place] [id number] Jul, [facility] [address] [id number] [address] [place] [address], [place] [address] Jun, [facility] [address] [id number] [facility] [address] Jun, [facility] [address] [id number] [facility] [address] May, [facility] [address] [id number] [facility] [address] May, [facility] [address] [id number] [address] [place] [address], [place] [address] Apr, [facility] [address] [id number] [address] [place] [address], [place] [address] Apr, [facility] [address] [id number] [address] [place] [address], [place] [address] Apr, [facility] [address] [id number] [address] [place] [address], [place] [address] Apr, [facility] [address] [id number] [address] [place] [address], [place] [address] March, [facility] [address] [id number] [address] [place] [address], [place] [address] March, [facility] [address] [id number] [address] [place] [address], [place] [address] Jan, [facility] [address] [id number] [address] [place] [address], [place] [address] Jan, [facility] [address] [id number] [address] [place] [address], [place] [address] Jan, [facility] [address] [id number] [address] [place] [address], [place] [address] Jan, [facility] [address] [id number] [address] [place] [address], [place] [address] Jan, [facility] [address] [id number] [address] [place] [address], [place] [id number] Jan, [facility] [address] [id number] [address] [place] [address], [place] [address] Dec, [facility] [address] [id number] [address] [place] [address], [place] [address] 04 Dec, 2013 [facility] [address] [id number] [address] [place] [address], [place] [id number] Oct, [facility] [address] [id number] [address] [place] [address], [place] [id number] Oct, [facility] [address] [id number] [address] [place] [address], [place] [address] Oct, [facility] [address] [id number] [address] [place] [address], [place] [address] Oct, [facility] [address] [id number] [address] [place] [address], [place] [id number] Jul, [facility] [address] [id number] [address] [place] [address], [place] [id number] Jul, [facility] [address] [id number] [address] [place] [address], [place] [address] Jul, [facility] [address] [id number] [address] [place] [address], [place] [id number] Jun, [facility] [address] [id number] [address] [place] [address], [place] [address] Jun, [facility] [address] [id number] [address] [place] [address], [place] [address] May, [facility] [address] [id number] [address] [place] [address], [place] [address] May, [facility] [address] [id number] [address] [place] [address], [place] [address] March, [facility] [address] [id number] [address] [place] [address], [place] [id number] March, [facility] [address] [id number] [address] [place] [address], [place] [address] Feb, [facility] [address] [id number] [address] [place] [id number] Feb, [facility] [address] [id number] [address] [place] [address], [place] [address] Jan, [facility] [address] [id number] [address] [place] [id number] 25 Dec, 2012 [facility] [address] [id number] [address] [place] [address], [place] [address] 19 Dec, 2012 [facility] [address] [id number] [address] [place] [id number] 15 Dec, 2012 [facility] [address] [id number] [address] [place] [address], [place] [address] 14 Dec, 2012 [facility] [address] [id number] [address] [place] [address], [place] [address] Dec, [facility] [address] [id number] [address] [place] [id number] Nov, [facility] [address] [id number] [address] [place] [id number] Oct, [facility] [address] [id number] [address] [place] [id number] Oct, [facility] [address] [id number] [address] [place] [id number] Aug, [facility] [address] [id number] [address] [place] [address], [place] [address] Aug, [facility] [address] [id number] [address] [place] [id number] Aug, [facility] [address] [id number] [address] [place] [id number] Aug, [facility] [address] [id number] [address] [place] [id number] Aug, [facility] [address] [id number] [address] [place] [id number] Jul, [facility] [address] [id number] [address] [place] [id number] Jul, [facility] [address] [id number] [address] [place] [id number] Jun, [facility] [address] [id number] [address] [place] [id number] Jun, [facility] [address] [id number] [address] [place] [id number] May, [facility] [address] [id number] [address] [place] [id number] May, [facility] [address] [id number] [address] [place] [id number] May, [facility] [address] [id number] [address] [place] [id number] Apr, [facility] [address] [id number] [address] [place] [id number] Apr, [facility] [address] [id number] [address] [place] [id number] March, [facility] [address] [id number] [address] [place] [id number] March, [facility] [address] [id number] [address] [place] [id number] Feb, [facility] [address] [id number] [address] [place] [id number] Feb, [facility] [address] [id number] [address] [place] [id number] Feb, [facility] [address] [id number] [address] [place] [id number] Feb, IMMUNIZATIONS No Known Immunizations SOCIAL HISTORY Never Assessed REASON FOR VISIT PLAN OF CARE VITAL SIGNS MEDICATIONS Unknown Medications RESULTS No Results PROCEDURES Procedure Date Ordered Result Body Site PSYTX PT&/FAMILY 45 MINUTES Jun 22, 2013 INSTRUCTIONS MEDICATIONS ADMINISTERED No Known Medications [...]
--- OUTSIDE RECORDS SUMMARY | 2020-06-17 08:41 | XMS REPORT ---
Author Author Barrie BUSTILLO Organization [facility] Address [address] [place] [address] Care Team Providers Care Manager Architecture Name Role Phone BARRIE BUSTILLO Unavailable PROBLEMS Type Condition ICD9-CM Code DUS67-LO Code Onset Dates Condition S tatus SNOMED Code Problem Primary insomnia F51.01 Active 397 2004 Problem Diabetes type 2, controlled E11.9 Ac tive 49171713 Problem Urinary hesitancy R39.11 Active 59 53018 Problem Essential hypertension I10 Active 67083221 Problem 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.1 Active 352993551 Problem Obstructive sleep apnea G47.33 Active 00810346 Problem Benign prostatic hyperplasia with lower urinary tract symptoms N40.1 Active 138039660 Problem Controlled type 2 diabetes m ellitus without complication, without long- term current use of insulin E11.9 Active 814605108 Problem 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 Acti ve 58809289 Problem Panlobular emphysema J43.1 Active 4731431 Problem Hesitancy of micturition R39.11 Activ e 7331933 Problem Chronic fatigue R53.82 Active 8422 9001 Problem Acute superficial venous thrombosis of left lower extremit y I82.812 Active [id number] Problem Uncontrolled type 2 diabetes mellitus with hyperglycemia E11.65 Active 742754567 Problem Arthritis M19.90 Active 8589819 Problem EMIR (obstructive sleep apnea) G47.33 Active 30959547 Problem Mood disorder F39 Active 647138 05 ALLERGIES No Information ENCOUNTERS Encounter Location Date Diagnosis [facility] [address] [id number] [address] [place] [phone] Jul, [facility] [address] [id number] [address] [place] [id number] Jun, [facility] [address] [id number] [address] [place] [id number] May, [place] [address] [id number] [address] [place] [id number] 14 Apr, 2020 Encounter for screening labo ratory testing for COVID-19 virus Z11.59 [facility] [address] [id number] [address] [place] [id number] 04 Apr, 2020 Moderate episode of recurren t major depressive disorder F33.1 [place] [address] [id number] [address] [place] [id number] 29 Mar, 2020 Diabetes type 2, controlled E11.9 ; Family history of early CAD Z82.49 ; Chest pain on exertion R07.9 and Chronic fatigue R53.82 [place] [address] [id number] [address] [place] [id number] 14 Mar, 2020 [place] [address] [id number] [address] [place] [id number] 07 Mar, 2020 Moderate episode of recurren t major depressive disorder F33.1 [place] [address] [id number] [address] [place] [id number] March, Moderate episode of recurren t major depressive disorder F33.1 [place] [address] [id number] [address] [place] [id number] March, Foot callus L84 [place] [address] [id number] [address] [place] [id number] March, Moderate episode of recurren t major depressive disorder F33.1 [place] [address] [id number] [address] [place] [phone] Jan, Foot callus L84 [place] [address] [id number] [address] [place] [id number] 07 Dec, 2019 Moderate episode of recurren t major depressive disorder F33.1 [place] [address] [id number] [address] [place] [id number] 04 Dec, 2019 Moderate episode of recurren t major depressive disorder F33.1 [place] [address] [id number] [address] [place] [id number] Dec, Moderate episode of recurren t major depressive disorder F33.1 [facility] [address] [id number] [address] [place] [id number] Nov, Panlobular emphysema J43.1 ; Mood disorder F39 and Controlled type 2 diabetes mellitus without complication, without long-term current use of insulin E11.9 [facility] [address] [id number] [address] [place] [id number] Nov, [facility] [address] [id number] [address] [place] [phone] Nov, Increased sputum production R09.3 and EMIR (obstructive sleep apnea) G47.33 [facility] [address] [id number] [address] [place] [phone] Oct, [facility] [address] [id number] [address] [place] [id number] Sep, [facility] [address] [id number] [address] [place] [id number] Sep, [facility] [address] [id number] [address] [place] [id number] Sep, [facility] [address] [id number] [address] [place] [id number] Aug, Moderate episode of recurren t major depressive disorder F33.1 [facility] [address] [id number] [address] [place] [id number] Aug, Moderate episode of recurren t major depressive disorder F33.1 [facility] [address] [id number] [address] [place] [id number] Aug, Moderate episode of recurren t major depressive disorder F33.1 [facility] [address] [id number] [address] [place] [id number] Jul, [facility] [address] [id number] [address] [place] [id number] Jul, Foot callus L84 ; Uncontroll ed type 2 diabetes mellitus with hyperglycemia E11.65 ; Arthritis M19.90 ; Encounter for immunization Z23 ; Rib pain on right side R07.81 and Lumbar pain M54.5 [facility] [address] [id number] [address] [place] [id number] Jul, [facility] [address] [id number] [address] [place] [id number] Jun, [facility] [address] [id number] [address] [place] [phone] Jun, [facility] [address] [id number] [address] [place] [id number] Jun, Callus of foot L84 [facility] [address] [id number] [address] [place] [phone] Jun, [place] [address] [id number] [address] [place] [id number] Apr, Exercise counseling Z71.82 [place] [address] [id number] [address] [place] [id number] March, Moderate episode of recurren t major depressive disorder F33.1 [place] [address] [id number] [address] [place] [id number] March, Moderate episode of recurren t major depressive disorder F33.1 [place] [address] [id number] [address] [place] [phone] March, Exercise counseling Z71.82 [facility] [address] [id number] [address] [place] [id number] March, [place] [address] [id number] [address] [place] [id number] March, Exercise counseling Z71.82 [facility] [address] [id number] [address] [place] [id number] March, Right otitis media with effu yousuf H65.91 ; 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 and Diabetes type 2, controlled E11.9 [facility] [address] [id number] [address] [place] [id number] March, Moderate episode of recurren t major depressive disorder F33.1 [facility] [address] [id number] [address] [place] [id number] March, Exercise counseling Z71.82 [place] [address] [id number] [address] [place] [id number] March, Exercise counseling Z71.82 [place] [address] [id number] [address] [place] [id number] March, Callus of foot L84 [place] [address] [id number] [address] [place] [phone] Feb, Moderate episode of recurren t major depressive disorder F33.1 [place] [address] [id number] [address] [place] [id number] Feb, [facility] [address] [id number] [address] [place] [id number] Feb, Moderate episode of recurren t major depressive disorder F33.1 [place] [address] [id number] [address] [place] [phone] Feb, Diabetes type 2, controlled E11.9 and Essential hypertension I10 [facility] [address] [id number] [address] [place] [id number] Jan, [facility] [address] [id number] [address] [place] [id number] Jan, Callus of foot L84 [facility] [address] [id number] [address] [place] [id number] Jan, Moderate episode of recurren t major depressive disorder F33.1 [facility] [address] [id number] [address] [place] [id number] Jan, Moderate episode of recurren t major depressive disorder F33.1 [facility] [address] [id number] [address] [place] [id number] 26 Dec, 2018 Moderate episode of recurren t major depressive disorder F33.1 [facility] [address] [id number] [address] [place] [id number] 11 Dec, 2018 Candidiasis of the esophagus B37.81 [facility] [address] [id number] [address] [place] [id number] 08 Dec, 2018 [facility] [address] [id number] [address] [place] [id number] 04 Dec, 2018 Fecal occult blood test posi tive R19.5 and Anemia, unspecified type D64.9 [place] [address] [id number] [address] [place] [id number] Nov, Stool color black K92.1 [place] [address] [id number] [address] [place] [id number] Nov, Stool color black K92.1 [place] [address] [id number] [address] [place] [id number] Nov, Stool color black K92.1 [place] [address] [id number] [address] [place] [id number] Nov, [facility] [address] [id number] [address] [place] [id number] Nov, Moderate episode of recurren t major depressive disorder F33.1 [facility] [address] [id number] [address] [place] [id number] Oct, Moderate episode of recurren t major depressive disorder F33.1 [place] [address] [id number] [address] [place] [id number] 18 Oct, 2018 Callus of foot L84 and Contr olled type 2 diabetes mellitus without complication, without long-term current use of insulin E11.9 [facility] [address] [id number] [address] [place] [id number] Oct, Moderate episode of recurren t major depressive disorder F33.1 [facility] [address] [id number] [address] [place] [id number] 17 Aug, 2018 Mood disorder F39 [facility] [address] [id number] [address] [place] [id number] 05 Aug, 2018 Encounter for immunization Z 23 [facility] [address] [id number] [address] [place] [id number] 26 Jul, 2018 Moderate episode of recurren t major depressive disorder F33.1 [facility] [address] [id number] [address] [place] [id number] 24 Jul, 2018 Moderate episode of recurren t major depressive disorder F33.1 [facility] [address] [id number] [address] [place] [id number] May, [facility] [address] [id number] [address] [place] [id number] May, Moderate episode of recurren t major depressive disorder F33.1 [facility] [address] [id number] [address] [place] [id number] May, Moderate episode of recurren t major depressive disorder F33.1 [facility] [address] [id number] [address] [place] [id number] Apr, Benign prostatic hyperplasia with lower urinary tract symptoms N40.1 and Hesitancy of micturition R39.11 [facility] [address] [id number] [address] [place] [id number] Apr, Moderate episode of recurren t major depressive disorder F33.1 [facility] [address] [id number] [address] [place] [id number] Apr, Unspecified mood [affective] disorder F39 and Primary insomnia F51.01 [facility] [address] [id number] [address] [place] [phone] 08 Apr, 2018 Primary insomnia F51.01 [place] [address] [id number] [address] [place] [id number] March, Foot callus L84 [facility] [address] [id number] [address] [place] [phone] Feb, Medicare annual wellness vis it, initial Z00.00 [facility] [address] [id number] [address] [place] [id number] Feb, Acute superficial venous thr ombosis of left lower extremity I82.812 [facility] [address] [id number] [address] [place] [id number] Feb, [facility] [address] [id number] [address] [place] [id number] Feb, [facility] [address] [id number] [address] [place] [id number] Feb, Acute superficial venous thr ombosis of left lower extremity I82.812 [facility] [address] [id number] [address] [place] [id number] Feb, [facility] [address] [id number] [address] [place] [id number] Feb, Other specified soft tissue disorders M79.89 and Pain in left leg M79.605 [facility] [address] [id number] [address] [place] [id number] Jan, Obstructive sleep apnea G47. 33 [facility] [address] [id number] [address] [place] [id number] Dec, Obstructive sleep apnea G47. 33 and Mood disorder F39 [facility] [address] [id number] [address] [place] [id number] Dec, [facility] [address] [id number] [address] [place] [id number] Dec, [facility] [address] [id number] [address] [place] [id number] Nov, Diabetes type 2, controlled E11.9 [facility] [address] [id number] [address] [place] [id number] Nov, Encounter for immunization Z 23 [facility] [address] [id number] [address] [place] [id number] Nov, Primary insomnia F51.01 [facility] [address] [id number] [address] [place] [id number] 07 Oct, 2017 Medicare annual wellness vis it, subsequent Z00.00 and Mood disorder F39 [facility] [address] [id number] [address] [place] [id number] Sep, Mood disorder F39 [place] [address] [id number] [address] [place] [id number] Aug, Primary insomnia F51.01 and Urinary hesitancy R39.11 [facility] [address] [id number] [address] [place] [id number] Aug, Primary insomnia F51.01 [facility] [address] [id number] [address] [place] [id number] 07 Jul, 2017 Diabetes type 2, controlled E11.9 ; Primary insomnia F51.01 and Mood disorder F39 [place] [id number] [facility] [id number] [id number] Jun, Mood disorder F39 [facility] [address] [id number] [id number] Jun, [facility] [address] [id number] [address] [place] [phone] May, Nightmares F51.5 [facility] [address] [id number] [address] [place] [id number] May, Cognitive complaints R41.9 ; Unspecified mood [affective] disorder F39 and Primary insomnia F51.01 [facility] [address] [id number] [address] [place] [id number] Apr, Mood disorder F39 and Primar y insomnia F51.01 [facility] [address] [id number] [address] [place] [id number] Apr, Cognitive complaints R41.9 a nd Unspecified mood [affective] disorder F39 [facility] [address] [id number] [address] [place] [id number] Apr, Cognitive complaints R41.9 a nd Unspecified mood [affective] disorder F39 [facility] [address] [id number] [address] [place] [phone] March, [facility] [address] [id number] [address] [place] [id number] March, Diabetes type 2, controlled E11.9 and Essential hypertension I10 [place] [address] [id number] [address] [place] [id number] March, Primary insomnia F51.01 ; Di abetes type 2, controlled E11.9 and Pain in right shoulder M25.511 [facility] [address] [id number] [address] [place] [id number] March, Cognitive complaints R41.9 a nd Unspecified mood [affective] disorder F39 [facility] [address] [id number] [address] [place] [id number] Feb, Other specified mental disor ders due to known physiological condition F06.8 [facility] [address] [id number] [address] [place] [id number] Jan, [facility] [address] [id number] [address] [place] [id number] Jan, [facility] [address] [id number] [address] [place] [id number] Dec, Diabetes type 2, controlled E11.9 ; Hypertension, benign I10 and Mood disorder F39 [facility] [address] [id number] [address] [place] [id number] 08 Dec, 2016 Medicare annual wellness vis it, initial Z00.00 [place] [address] [id number] [address] [place] [id number] 05 Nov, 2016 Medicare welcome exam Z00.00 ; Encounter for immunization Z23 ; Medicare annual wellness visit, initial Z00.00 and Medicare annual wellness visit, subsequent Z00.00 [facility] [address] [id number] [address] [place] [id number] 08 Oct, 2016 [facility] [address] [id number] [address] [place] [id number] Sep, [facility] [address] [id number] [address] [place] [id number] Aug, Encounter for immunization Z 23 and Callus L84 [facility] [address] [id number] [address] [place] [id number] Aug, [facility] [address] [id number] [address] [place] [id number] Jul, Diabetes type 2, controlled E11.9 [facility] [address] [id number] [address] [place] [id number] Jul, Diabetes type 2, controlled E11.9 [facility] [address] [id number] [address] [place] [id number] Jun, [facility] [address] [id number] [address] [place] [id number] Jun, Hypertension, benign I10 ; M ood disorder F39 and Diabetes type 2, controlled E11.9 [facility] [address] [id number] [address] [place] [id number] Jun, Mood disorder F39 [facility] [address] [id number] [address] [place] [id number] May, [facility] [address] [id number] [address] [place] [id number] May, Mood disorder F39 [facility] [address] [id number] [address] [place] [id number] May, Mood disorder F39 [facility] [address] [id number] [address] [place] [id number] Apr, Controlled type 2 diabetes m [place] without complication, without long-term current use of insulin E11.9 ; Essential hypertension I10 and Pain in right shoulder M25.511 [facility] [address] [id number] [address] [place] [id number] Apr, Mood disorder F39 [facility] [address] [id number] [address] [place] [id number] Apr, Pre-op evaluation Z01.818 [facility] [address] [id number] [address] [place] [id number] March, Mood disorder F39 [facility] [address] [id number] [address] [place] [id number] Feb, [facility] [address] [id number] [address] [place] [id number] Feb, Shoulder pain, right M25.511 [facility] [address] [id number] [address] [place] [id number] Feb, Shoulder pain, right M25.511 [facility] [address] [id number] [address] [place] [id number] Feb, Shoulder pain, right M25.511 [facility] [address] [id number] [address] [place] [id number] Feb, Shoulder pain, right M25.511 [facility] [address] [id number] [address] [place] [id number] Jan, Shoulder pain, right M25.511 [facility] [address] [id number] [address] [place] [id number] Jan, Shoulder pain, right M25.511 [facility] [address] [id number] [address] [place] [id number] Jan, [facility] [address] [id number] Jan, Diabetes type 2, controlled E11.9 [place] [address] [id number] Jan, Shoulder pain, right M25.511 ; Diabetes mellitus without mention of complication, type II or unspecified type, not stated as uncontrolled 250.00 and Diabetes type 2, controlled E11.9 [place] [address] [id number] Jan, [place] [address] [address] Jan, [place] [address] [address] Dec, [place] [address] [id number] Oct, Callus of foot L[address] [address] Oct, Anxiety F41.9 ; Callus of fo ot L84 and Dysuria R30.[address] [address] Sep, Diabetes mellitus without me ntion of complication, type II or unspecified type, not stated as uncontrolled 250.00 [place] [address] [address] Aug, Diabetes mellitus without me ntion of complication, type II or unspecified type, not stated as uncontrolled 250.00 [place] [address] [address] Jul, [place] [address] [address] Jul, [place] [address] [address] Jul, Diabetes mellitus without me ntion of complication, type II or unspecified type, not stated as uncontrolled 250.00 ; Essential hypertension, benign 401.1 and Anxiety state, unspecified 300.00 [facility] [address] [id number] [address] [place] [id number] Jul, [facility] [address] [id number] [address] [place] [id number] Jun, [facility] [address] [id number] [address] [place] [id number] Jun, [facility] [address] [id number] [address] [place] [id number] May, [facility] [address] [id number] [address] [place] [id number] May, [facility] [address] [id number] [address] [place] [id number] Apr, [facility] [address] [id number] [address] [place] [id number] Apr, Mood disorder [phone] [facility] [address] [id number] [address] [place] [id number] March, [facility] [address] [id number] [address] [place] [id number] Feb, [facility] [address] [id number] [address] [place] [id number] Feb, [facility] [address] [id number] [address] [place] [id number] Jan, [facility] [address] [id number] [address] [place] [id number] Jan, [facility] [address] [id number] [address] [place] [id number] Jan, [facility] [address] [id number] [address] [place] [id number] Jan, [facility] [address] [id number] [address] [place] [address], [place] [address] Jan, [facility] [address] [id number] [address] [place] [address], [place] [address] Jan, [facility] [address] [id number] [address] [place] [address], [place] [address] Jan, [facility] [address] [id number] [address] [place] [address], [place] [address] Jan, [facility] [address] [id number] [address] [place] [address], [place] [address] Dec, [facility] [address] [id number] [address] [place] [address], [place] [address] Dec, [facility] [address] [id number] [address] [place] [address], [place] [address] Nov, [facility] [address] [id number] [address] [place] [address], [place] [address] Nov, [facility] [address] [id number] [address] [place] [address], [place] [address] Nov, [facility] [address] [id number] [address] [place] [address], [place] [address] Nov, [facility] [address] [id number] [address] [place] [address], [place] [address] Oct, [facility] [address] [id number] [address] [place] [address], [place] [address] Oct, [facility] [address] [id number] [address] [place] [address], [place] [address] Oct, [facility] [address] [id number] [address] [place] [address], [place] [address] Oct, [facility] [address] [id number] [address] [place] [address], [place] [address] Oct, [facility] [address] [id number] [address] [place] [address], [place] [address] Oct, [facility] [address] [id number] [address] [place] [address], [place] [address] 17 Oct, 2014 [facility] [address] [id number] [address] [place] [address], [place] [address] 17 Oct, 2014 [facility] [address] [id number] [address] [place] [address], [place] [address] 15 Oct, 2014 [facility] [address] [id number] [address] [place] [address], [place] [address] 15 Oct, 2014 [facility] [address] [id number] [address] [place] [address], [place] [address] Sep, [facility] [address] [id number] [address] [place] [address], [place] [address] Sep, [facility] [address] [id number] [address] [place] [address], [place] [address] 18 Sep, 2014 [facility] [address] [id number] [address] [place] [address], [place] [address] Sep, [facility] [address] [id number] [address] [place] [address], [place] [address] Sep, [facility] [address] [id number] [address] [place] [address], [place] [address] Sep, [facility] [address] [id number] [address] [place] [address], [place] [address] 16 Aug, 2014 [facility] [address] [id number] [address] [place] [address], [place] [address] Aug, [facility] [address] [id number] [address] [place] [address], [place] [address] Jul, [facility] [address] [id number] [address] [place] [address], [place] [address] 19 Jul, 2014 [facility] [address] [id number] [address] [place] [address], [place] [address] Jun, [facility] [address] [id number] [address] [place] [address], [place] [address] Jun, [facility] [address] [id number] [facility] [place] [address] May, [facility] [address] [id number] [address] [place] [address], [place] [address] May, [facility] [address] [id number] [address] [place] [address], [place] [address] Apr, [facility] [address] [id number] [address] [place] [address], [place] [address] Apr, [facility] [address] [id number] [address] [place] [address], [place] [address] Apr, [facility] [address] [id number] [address] [place] [address], [place] [address] Apr, [facility] [address] [id number] [address] [place] [address], [place] [address] March, [facility] [address] [id number] [address] [place] [address], [place] [address] March, [facility] [address] [id number] [address] [place] [address], [place] [address] Jan, [facility] [address] [id number] [address] [place] [address], [place] [address] Jan, [facility] [address] [id number] [address] [place] [address], [place] [address] Jan, [facility] [address] [id number] [address] [place] [address], [place] [address] Jan, [facility] [address] [id number] [address] [place] [address], [place] [address] Jan, [facility] [address] [id number] [address] [place] [address], [place] [address] Jan, [facility] [address] [id number] [address] [place] [address], [place] [address] Dec, [facility] [address] [id number] [address] [place] [address], [place] [address] 04 Dec, 2013 [facility] [address] [id number] [address] [place] [address], [place] [address] Oct, [facility] [address] [id number] [address] [place] [address], [place] [address] Oct, [facility] [address] [id number] [address] [place] [address], [place] [address] Oct, [facility] [address] [id number] [address] [place] [address], [place] [address] Oct, [facility] [address] [id number] [address] [place] [address], [place] [address] Jul, [facility] [address] [id number] [address] [place] [address], [place] [address] Jul, [facility] [address] [id number] [address] [place] [address], [place] [address] Jul, [facility] [address] [id number] [address] [place] [address], [place] [address] Jun, [facility] [address] [id number] [address] [place] [address], [place] [address] Jun, [facility] [address] [id number] [address] [place] [address], [place] [address] May, [facility] [address] [id number] [address] [place] [address], [place] [address] May, [facility] [address] [id number] [address] [place] [address], [place] [address] March, [facility] [address] [id number] [address] [place] [address], [place] [address] March, [facility] [address] [id number] [address] [place] [address], [place] [address] Feb, [facility] [address] [id number] [address] [place] [address], [place] [address] Feb, [facility] [address] [id number] [address] [place] [address], [place] [address] Jan, [facility] [address] [id number] [address] [place] [address], [place] [address] Dec, [facility] [address] [id number] [address] [place] [address], [place] [address] Dec, [facility] [address] [id number] [address] [place] [address], [place] [address] Dec, [facility] [address] [id number] [address] [place] [address], [place] [address] Dec, [facility] [address] [id number] [address] [place] [address], [place] [address] Dec, [facility] [address] [id number] [address] [place] [address], [place] [address] Nov, [facility] [address] [id number] [address] [place] [address], [place] [address] Oct, [facility] [address] [id number] [address] [place] [address], [place] [address] Oct, [facility] [address] [id number] [address] [place] [address], [place] [address] Aug, [facility] [address] [id number] [address] [place] [address], [place] [address] Aug, [facility] [address] [id number] [address] [place] [id number] Aug, [facility] [address] [id number] [address] [place] [address], [place] [address] Aug, [facility] [address] [id number] [address] [place] [address], [place] [address] Aug, [facility] [address] [id number] [address] [place] [address], [place] [address] Jul, [facility] [address] [id number] [address] [place] [id number] Jul, [facility] [address] [id number] [address] [place] [id number] Jun, [facility] [address] [id number] [address] [place] [id number] Jun, [facility] [address] [id number] [address] [place] [id number] May, [facility] [address] [id number] [address] [place] [id number] May, [facility] [address] [id number] [address] [place] [id number] May, [facility] [address] [id number] [address] [place] [id number] Apr, [facility] [address] [id number] [address] [place] [id number] Apr, [facility] [address] [id number] [address] [place] [id number] March, [facility] [address] [id number] [address] [place] [address] March, [facility] [address] [id number] [address] [place] [id number] Feb, [facility] [address] [id number] [address] [place] [id number] Feb, [facility] [address] [id number] [address] [place] [id number] Feb, [facility] [address] [id number] [address] [place] [id number] Feb, IMMUNIZATIONS No Known Immunizations SOCIAL HISTORY Never Assessed REASON FOR VISIT LVM PLAN OF CARE VITAL SIGNS MEDICATIONS Unknown [...]
--- OUTSIDE RECORDS SUMMARY | 2020-06-17 08:41 | XMS REPORT ---
Author Author Barrie BUSTILLO Organization [facility] Address [address] [place] [address] Care Team Providers Care Entry Level Staff Accountant Name Role Phone BARRIE BUSTILLO Unavailable PROBLEMS Type Condition ICD9-CM Code ZFN09-AJ Code Onset Dates Condition S tatus SNOMED Code Problem Primary insomnia F51.01 Active 397 2004 Problem Diabetes type 2, controlled E11.9 Ac tive 73958186 Problem Urinary hesitancy R39.11 Active 59 66067 Problem Essential hypertension I10 Active 28748319 Problem 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.1 Active 166063714 Problem Obstructive sleep apnea G47.33 Active 64716988 Problem Benign prostatic hyperplasia with lower urinary tract symptoms N40.1 Active 255347904 Problem Controlled type 2 diabetes m ellitus without complication, without long- term current use of insulin E11.9 Active 788074420 Problem 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 Acti ve 27731622 Problem Panlobular emphysema J43.1 Active 6044956 Problem Hesitancy of micturition R39.11 Activ e 6022001 Problem Chronic fatigue R53.82 Active 8422 9001 Problem Acute superficial venous thrombosis of left lower extremit y I82.812 Active [id number] Problem Uncontrolled type 2 diabetes mellitus with hyperglycemia E11.65 Active 609524424 Problem Arthritis M19.90 Active 3592560 Problem EMIR (obstructive sleep apnea) G47.33 Active 13690596 Problem Mood disorder F39 Active 113911 05 ALLERGIES No Information ENCOUNTERS Encounter Location Date Diagnosis [facility] [address] [facility] [id number] [address] [place] [phone] Jul, [facility] [address] [facility] [id number] [address] [place] [phone] Jun, [facility] [address] [facility] [id number] [address] [place] [address] Apr, [facility] [address] [id number] [address] [place] [address] March, Diabetes type 2, controlled E11.9 ; Family history of early CAD Z82.49 ; Chest pain on exertion R07.9 and Chronic fatigue R53.82 [place] [address] [id number] [address] [place] [address] March, [place] [address] [id number] [address] [place] [address] March, Moderate episode of recurren t major depressive disorder F33.1 [place] [address] [id number] [address] [place] [address] March, Moderate episode of recurren t major depressive disorder F33.1 [place] [address] [id number] [address] [place] [address] March, Foot callus L84 [place] [address] [facility] [id number] [address] [place] [address] March, Moderate episode of recurren t major depressive disorder F33.1 [place] [address] [id number] [address] [place] [address] Jan, Foot callus L84 [place] [address] [facility] [id number] [address] [place] [id number] 07 Dec, 2019 Moderate episode of recurren t major depressive disorder F33.1 [place] [address] [id number] [address] [place] [phone] Dec, Moderate episode of recurren t major depressive disorder F33.1 [place] [address] [id number] [address] [place] [phone] Dec, Moderate episode of recurren t major depressive disorder F33.1 [place] [address] [id number] [address] [place] [address] Nov, Panlobular emphysema J43.1 ; Mood disorder F39 and Controlled type 2 diabetes mellitus without complication, without long-term current use of insulin E11.9 [facility] [address] [id number] [address] [place] [address] Nov, [facility] [address] [id number] [address] [place] [address] Nov, Increased sputum production R09.3 and EMIR (obstructive sleep apnea) G47.33 [facility] [address] [id number] [address] [place] [address] Oct, [facility] [address] [id number] [address] [place] [address] Sep, [facility] [address] [id number] [address] [place] [address] Sep, [facility] [address] [id number] [address] [place] [id number] Sep, [facility] [address] [id number] [address] [place] [address] Aug, Moderate episode of recurren t major depressive disorder F33.1 [facility] [address] [id number] [address] [place] [phone] Aug, Moderate episode of recurren t major depressive disorder F33.1 [facility] [address] [id number] [address] [place] [phone] Aug, Moderate episode of recurren t major depressive disorder F33.1 [facility] [address] [id number] [address] [place] [address] Jul, [facility] [address] [id number] [address] [place] [address] Jul, Foot callus L84 ; Uncontroll ed type 2 diabetes mellitus with hyperglycemia E11.65 ; Arthritis M19.90 ; Encounter for immunization Z23 ; Rib pain on right side R07.81 and Lumbar pain M54.5 [facility] [address] [id number] [address] [place] [address] Jul, [facility] [address] [id number] [address] [place] [address] Jun, [facility] [address] [id number] [address] [place] [address] Jun, [facility] [address] [id number] [address] [place] [address] Jun, Callus of foot L84 [facility] [address] [id number] [address] [place] [address] Jun, [facility] [address] [id number] [address] [place] [address] Apr, Exercise counseling Z71.82 [facility] [address] [facility] [id number] [address] [place] [address] March, Moderate episode of recurren t major depressive disorder F33.1 [facility] [address] [facility] [id number] [address] [place] [address] March, Moderate episode of recurren t major depressive disorder F33.1 [facility] [address] [id number] [address] [place] [address] March, Exercise counseling Z71.82 [facility] [address] [facility] [id number] [address] [place] [address] March, [facility] [address] [facility] [id number] [address] [place] [address] March, Exercise counseling Z71.82 [facility] [address] [facility] [id number] [address] [place] [address] March, Right otitis media with effu yousuf H65.91 ; 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 and Diabetes type 2, controlled E11.9 [facility] [address] [facility] [id number] [address] [place] [address] March, Moderate episode of recurren t major depressive disorder F33.1 [facility] [address] [facility] [id number] [address] [place] [address] March, Exercise counseling Z71.82 [facility] [address] [id number] [address] [place] [address] March, Exercise counseling Z71.82 [facility] [address] [id number] [address] [place] [id number] March, Callus of foot L84 [facility] [address] [id number] [address] [place] [address] Feb, Moderate episode of recurren t major depressive disorder F33.1 [facility] [address] [id number] [address] [place] [address] Feb, [place] [address] [id number] [address] [place] [address] Feb, Moderate episode of recurren t major depressive disorder F33.1 [place] [address] [id number] [address] [place] [address] Feb, Diabetes type 2, controlled E11.9 and Essential hypertension I10 [facility] [address] [id number] [address] [place] [address] Jan, [facility] [address] [id number] [address] [place] [address] Jan, Callus of foot L84 [facility] [address] [facility] [id number] [address] [place] [address] Jan, Moderate episode of recurren t major depressive disorder F33.1 [facility] [address] [id number] [address] [place] [address] Jan, Moderate episode of recurren t major depressive disorder F33.1 [facility] [address] [id number] [address] [place] [address] Dec, Moderate episode of recurren t major depressive disorder F33.1 [facility] [address] [facility] [id number] [address] [place] [address] Dec, Candidiasis of the esophagus B37.81 [place] [address] [facility] [id number] [address] [place] [address] 08 Dec, 2018 [facility] [address] [facility] [id number] [address] [place] [phone] 04 Dec, 2018 Fecal occult blood test posi tive R19.5 and Anemia, unspecified type D64.9 [facility] [address] [facility] [id number] [address] [place] [address] Nov, Stool color black K92.1 [facility] [address] [facility] [id number] [address] [place] [address] Nov, Stool color black K92.1 [place] [address] [facility] [id number] [address] [place] [phone] Nov, Stool color black K92.1 [place] [address] [facility] [id number] [address] [place] [address] Nov, [facility] [address] [facility] [id number] [address] [place] [address] Nov, Moderate episode of recurren t major depressive disorder F33.1 [place] [address] [facility] [id number] [address] [place] [address] Oct, Moderate episode of recurren t major depressive disorder F33.1 [facility] [address] [facility] [id number] [address] [place] [phone] 18 Oct, 2018 Callus of foot L84 and Contr olled type 2 diabetes mellitus without complication, without long-term current use of insulin E11.9 [facility] [address] [facility] [id number] [address] [place] [phone] Oct, Moderate episode of recurren t major depressive disorder F33.1 [place] [address] [facility] [id number] [address] [place] [id number] 17 Aug, 2018 Mood disorder F39 [place] [address] [facility] [id number] [address] [place] [address] 05 Oct, 2018 Encounter for immunization Z 23 [facility] [address] [facility] [id number] [address] [place] [id number] 26 Jul, 2018 Moderate episode of recurren t major depressive disorder F33.1 [facility] [address] [facility] [id number] [address] [place] [id number] 24 Jul, 2018 Moderate episode of recurren t major depressive disorder F33.1 [facility] [address] [facility] [id number] [address] [place] [address] May, [place] [address] [facility] [id number] [address] [place] [address] May, Moderate episode of recurren t major depressive disorder F33.1 [place] [address] [facility] [id number] [address] [place] [address] May, Moderate episode of recurren t major depressive disorder F33.1 [place] [address] [facility] [id number] [address] [place] [address] Apr, Benign prostatic hyperplasia with lower urinary tract symptoms N40.1 and Hesitancy of micturition R39.11 [place] [address] [facility] [id number] [address] [place] [address] Apr, Moderate episode of recurren t major depressive disorder F33.1 [place] [address] [place] [id number] [address] [place] [id number] Apr, Unspecified mood [affective] disorder F39 and Primary insomnia F51.01 [place] [address] [facility] [id number] [address] [place] [address] Apr, Primary insomnia F51.01 [place] [address] [facility] [id number] [address] [place] [address] March, Foot callus L84 [place] [address] [facility] [id number] [address] [place] [address] Feb, Medicare annual wellness vis it, initial Z00.00 [place] [address] [facility] [id number] [address] [place] [address] Feb, Acute superficial venous thr ombosis of left lower extremity I82.812 [facility] [address] [facility] [id number] [address] [place] [address] Feb, [facility] [address] [facility] [id number] [address] [place] [address] Feb, [facility] [address] [facility] [id number] [address] [place] [address] Feb, Acute superficial venous thr ombosis of left lower extremity I82.812 [facility] [address] [facility] [id number] [address] [place] [phone] Feb, [facility] [address] [facility] [id number] [address] [place] [address] Feb, Other specified soft tissue disorders M79.89 and Pain in left leg M79.605 [facility] [address] [facility] [id number] [address] [place] [phone] Jan, Obstructive sleep apnea G47. 33 [facility] [address] [facility] [id number] [address] [place] [address] Dec, Obstructive sleep apnea G47. 33 and Mood disorder F39 [facility] [address] [facility] [id number] [address] [place] [phone] Dec, [facility] [address] [place] [id number] [address] [place] [address] Dec, [facility] [address] [facility] [id number] [address] [place] [address] Nov, Diabetes type 2, controlled E11.9 [place] [address] [place] [id number] [address] [place] [address] Nov, Encounter for immunization Z 23 [facility] [address] [facility] [id number] [address] [place] [address] Nov, Primary insomnia F51.01 [facility] [address] [place] [id number] [place] [address] 07 Oct, 2017 Medicare annual wellness vis it, subsequent Z00.00 and Mood disorder F39 [facility] [address] [facility] [id number] [address] [place] [address] Sep, Mood disorder F39 [facility] [address] [facility] [id number] [address] [place] [address] Aug, Primary insomnia F51.01 and Urinary hesitancy R39.11 [facility] [address] [facility] [id number] [address] [place] [address] Aug, Primary insomnia F51.01 [facility] [address] [facility] [id number] [address] [place] [address] 07 Jul, 2017 Diabetes type 2, controlled E11.9 ; Primary insomnia F51.01 and Mood disorder F39 [address] [id number] [id number] Jun, Mood disorder F39 [facility] [address] [id number] [id number] Jun, [facility] [address] [facility] [id number] [address] [place] [address] May, Nightmares F51.5 [facility] [address] [facility] [id number] [address] [place] [address] May, Cognitive complaints R41.9 ; Unspecified mood [affective] disorder F39 and Primary insomnia F51.01 [facility] [address] [facility] [id number] [address] [place] [address] Apr, Mood disorder F39 and Primar y insomnia F51.01 [facility] [address] [facility] [id number] [address] [place] [address] Apr, Cognitive complaints R41.9 a nd Unspecified mood [affective] disorder F39 [facility] [address] [facility] [id number] [address] [place] [address] Apr, Cognitive complaints R41.9 a nd Unspecified mood [affective] disorder F39 [facility] [address] [id number] [address] [place] [address] March, [facility] [address] [facility] [id number] [address] [place] [address] March, Diabetes type 2, controlled E11.9 and Essential hypertension I10 [facility] [address] [facility] [id number] [address] [place] [address] March, Primary insomnia F51.01 ; Di abetes type 2, controlled E11.9 and Pain in right shoulder M25.511 [place] [address] [id number] [address] [place] [address] March, Cognitive complaints R41.9 a nd Unspecified mood [affective] disorder F39 [place] [address] [facility] [id number] [address] [place] [address] Feb, Other specified mental disor ders due to known physiological condition F06.8 [facility] [address] [facility] [id number] [address] [place] [address] Jan, [place] [address] [facility] [id number] [address] [place] [address] Jan, [facility] [address] [facility] [id number] [address] [place] [address] Dec, Diabetes type 2, controlled E11.9 ; Hypertension, benign I10 and Mood disorder F39 [facility] [address] [facility] [id number] [address] [place] [address] 08 Dec, 2016 Medicare annual wellness vis it, initial Z00.00 [facility] [address] [facility] [id number] [address] [place] [address] 05 Nov, 2016 Medicare welcome exam Z00.00 ; Encounter for immunization Z23 ; Medicare annual wellness visit, initial Z00.00 and Medicare annual wellness visit, subsequent Z00.00 [place] [address] [facility] [id number] [address] [place] [address] Oct, [facility] [address] [facility] [id number] [address] [place] [address] Sep, [facility] [address] [facility] [id number] [address] [place] [address] Aug, Encounter for immunization Z 23 and Callus L84 [facility] [address] [facility] [id number] [address] [place] [address] Aug, [facility] [address] [facility] [id number] [address] [place] [address] Jul, Diabetes type 2, controlled E11.9 [facility] [address] [facility] [id number] [address] [place] [address] Jul, Diabetes type 2, controlled E11.9 [facility] [address] [place] [id number] [address] [place] [address] Jun, [facility] [address] [place] [id number] [address] [place] [address] Jun, Hypertension, benign I10 ; M ood disorder F39 and Diabetes type 2, controlled E11.9 [facility] [address] [facility] [id number] [address] [place] [address] Jun, Mood disorder F39 [facility] [address] [facility] [id number] [address] [place] [address] May, [facility] [address] [place] [id number] [address] [place] [address] May, Mood disorder F39 [facility] [address] [facility] [id number] [address] [place] [address] May, Mood disorder F39 [facility] [address] [facility] [id number] [address] [place] [address] Apr, Controlled type 2 diabetes m ellitus without complication, without long-term current use of insulin E11.9 ; Essential hypertension I10 and Pain in right shoulder M25.511 [facility] [address] [facility] [id number] [address] [place] [address] 08 Apr, 2016 Mood disorder F39 [facility] [address] [id number] [address] [place] [address] Apr, Pre-op evaluation Z01.818 [facility] [address] [id number] [address] [place] [address] March, Mood disorder F39 [facility] [address] [id number] [address] [place] [phone] Feb, [facility] [address] [id number] [address] [place] [address] Feb, Shoulder pain, right M25.511 [facility] [address] [id number] [address] [place] [address] Feb, Shoulder pain, right M25.511 [facility] [address] [id number] [address] [place] [address] Feb, Shoulder pain, right M25.511 [facility] [address] [id number] [address] [place] [id number] Feb, Shoulder pain, right M25.511 [facility] [address] [id number] [address] [place] [address] Jan, Shoulder pain, right M25.511 [facility] [address] [id number] [address] [place] [address] Jan, Shoulder pain, right M25.511 [facility] [address] [id number] [address] [place] [id number] 16 Jan, 2016 [facility] [address] [id number] [address] [place] [id number] 14 Jan, 2016 Diabetes type 2, controlled E11.9 [facility] [address] [id number] [address] [place] [id number] 11 Jan, 2016 Shoulder pain, right M25.511 ; Diabetes mellitus without mention of complication, type II or unspecified type, not stated as uncontrolled 250.00 and Diabetes type 2, controlled E11.9 [facility] [address] [id number] Jan, [facility] [address] [id number] Jan, [facility] [address] [id number] Dec, [facility] [address] [id number] Oct, Callus of foot L84 [place] [address] [id number] Oct, Anxiety F41.9 ; Callus of fo ot L84 and Dysuria R30.0 [place] [address] [address] [address] Sep, Diabetes mellitus without me ntion of complication, type II or unspecified type, not stated as uncontrolled 250.00 [place] [address] [address] Aug, Diabetes mellitus without me ntion of complication, type II or unspecified type, not stated as uncontrolled 250.00 [place] [address] [address] Jul, [place] [address] [address] Jul, [facility] [address] [address] Jul, Diabetes mellitus without me ntion of complication, type II or unspecified type, not stated as uncontrolled 250.00 ; Essential hypertension, benign 401.1 and Anxiety state, unspecified 300.00 [facility] [address] [address] Jul, [place] [address] [address] Jun, [facility] [address] [id number] [address] [place] [address], [place] [address] Jun, [facility] [address] [id number] [address] [place] [address], [place] [address] May, [facility] [address] [id number] [address] [place] [address], [place] [address] May, [facility] [address] [id number] [address] [place] [address], [place] [address] Apr, [facility] [address] [id number] [address] [place] [address], [place] [address] Apr, Mood disorder 296.90 [facility] [address] [id number] [address] [place] [address], [place] [address] March, [facility] [address] [id number] [address] [place] [address], [place] [address] Feb, [facility] [address] [id number] [address] [place] [address], [place] [address] Feb, [facility] [address] [id number] [address] [place] [address], [place] [address] Jan, [facility] [address] [id number] [address] [place] [address], [place] [address] Jan, [facility] [address] [id number] [address] [place] [address], [place] [address] Jan, [facility] [address] [id number] [address] [place] [address], [place] [address] Jan, [facility] [address] [id number] [address] [place] [address], [place] [address] Jan, [facility] [address] [id number] [address] [place] [address], [place] [address] Jan, [facility] [address] [id number] [address] [place] [address], [place] [address] Jan, [facility] [address] [id number] [address] [place] [address], [place] [address] Jan, [facility] [address] [id number] [address] [place] [address], [place] [address] Dec, [facility] [address] [id number] [address] [place] [address], [place] [address] Dec, [facility] [address] [id number] [address] [place] [address], [place] [address] Nov, [facility] [address] [id number] [address] [place] [address], [place] [address] Nov, [facility] [address] [id number] [address] [place] [address], [place] [address] Nov, [facility] [address] [id number] [address] [place] [address], [place] [address] Nov, [facility] [address] [id number] [address] [place] [address], [place] [address] Oct, [facility] [address] [id number] [address] [place] [address], [place] [address] Oct, [facility] [address] [id number] [address] [place] [address], [place] [address] Oct, [facility] [address] [id number] [address] [address], [place] [address] Oct, [facility] [address] [id number] [address] [place] [address], [place] [address] Oct, [facility] [address] [id number] [address] [place] [address], [place] [address] 24 Oct, 2014 [facility] [address] [id number] [address] [place] [address], [place] [address] Oct, [facility] [address] [id number] [address] [place] [address], [place] [address] 17 Oct, 2014 [facility] [address] [id number] [address] [place] [address], [place] [address] 15 Oct, 2014 [facility] [address] [id number] [address] [place] [address], [place] [address] 15 Oct, 2014 [facility] [address] [id number] [address] [place] [address], [place] [address] Sep, [facility] [address] [id number] [address] [place] [address], [place] [address] Sep, [facility] [address] [id number] [address] [place] [address], [place] [address] Sep, [facility] [address] [id number] [address] [place] [address], [place] [address] Sep, [facility] [address] [id number] [address] [place] [address], [place] [address] Sep, [facility] [address] [id number] [address] [place] [address], [place] [address] Sep, [facility] [address] [id number] [address] [place] [address], [place] [address] Aug, [facility] [address] [id number] [address] [place] [address], [place] [address] Aug, [facility] [address] [id number] [address] [place] [address], [place] [address] Jul, [facility] [address] [id number] [address] [place] [address], [place] [address] Jul, [facility] [address] [id number] [address] [place] [address], [place] [address] Jun, [facility] [address] [id number] [address] [place] [address], [place] [address] Jun, [facility] [address] [id number] [address] [place] [address], [place] [address] May, [facility] [address] [id number] [address] [place] [address], [place] [address] May, [facility] [address] [id number] [address] [place] [address], [place] [address] Apr, [facility] [address] [id number] [address] [place] [address], [place] [address] Apr, [facility] [address] [id number] [address] [place] [address], [place] [address] Apr, [facility] [address] [id number] [address] [address], [place] [address] Apr, [facility] [address] [id number] [address] [address], [place] [address] March, [facility] [address] [id number] [address] [address], [place] [address] March, [facility] [address] [id number] [address] [address], [place] [address] Jan, [facility] [address] [id number] [address] [address], [place] [address] Jan, [facility] [address] [id number] [address] [place] [address], [place] [address] Jan, [facility] [address] [id number] [address] [address], [place] [address] Jan, [facility] [address] [id number] [address] [address], [place] [address] Jan, [facility] [address] [id number] [address] [address], [place] [address] Jan, [facility] [address] [id number] [address] [address], [place] [address] Dec, [facility] [address] [id number] [address] [place] [address], [place] [address] Dec, [facility] [address] [id number] [address] [place] [address], [place] [address] Oct, [facility] [address] [id number] [address] [place] [address], [place] [address] Oct, [facility] [address] [id number] [address] [place] [address], [place] [address] Oct, [facility] [address] [id number] [address] [place] [address], [place] [address] Oct, [facility] [address] [id number] [address] [place] [address], [place] [address] Jul, [facility] [address] [id number] [address] [place] [address], [place] [address] Jul, [facility] [address] [id number] [address] [place] [address], [place] [address] Jul, [facility] [address] [id number] [address] [place] [address], [place] [address] Jun, [facility] [address] [id number] [address] [address], [place] [address] Jun, [facility] [address] [id number] [address] [address], [place] [address] May, [facility] [address] [id number] [address] [address], [place] [address] May, [facility] [address] [id number] [address] [address], [place] [address] March, [facility] [address] [id number] [address] [address], [place] [address] March, [facility] [address] [id number] [address] [place] [address], [place] [address] Feb, [facility] [address] [id number] [address] [place] [address], [place] [address] Feb, [facility] [address] [id number] [address] [place] [address], [place] [address] Jan, [facility] [address] [id number] [address] [place] [address], [place] [address] Dec, [facility] [address] [id number] [address] [place] [address], [place] [address] Dec, 2012 [facility] [address] [id number] [address] [address], [place] [address] 15 Dec, 2012 [facility] [address] [id number] [address] [place] [address], [place] [address] 14 Dec, 2012 [facility] [address] [id number] [address] [place] [address], [place] [address] 13 Dec, 2012 [facility] [address] [id number] [address] [place] [address] 15 Nov, 2012 [facility] [address] [id number] [address] [place] [address], [place] [address] Oct, [facility] [address] [id number] [address] [place] [address] Oct, [facility] [address] [id number] [address] [place] [address] Aug, [facility] [address] [id number] [address] [place] [address] Aug, [facility] [address] [id number] [address] [place] [address] Aug, [facility] [address] [id number] [address] [place] [address] Aug, [facility] [address] [id number] [address] [place] [address] Aug, [facility] [address] [id number] [address] [place] [address] Jul, [facility] [address] [id number] [address] [place] [address], [place] [address] 18 Jul, 2012 [facility] [address] [id number] [address] [place] [address] Jun, [facility] [address] [id number] [address] [place] [address], [place] [address] Jun, [facility] [address] [id number] [address] [place] [address] May, [facility] [address] [id number] [address] [place] [address] May, [facility] [address] [id number] [address] [place] [address] May, [facility] [address] [id number] [address] [place] [address] Apr, [facility] [address] [id number] [address] [place] [address] Apr, [facility] [address] [id number] [address] [place] [id number] March, [facility] [address] [id number] [address] [place] [address] March, [facility] [address] [id number] [address] [place] [address] Feb, [facility] [address] [id number] [address] [place] [id number] Feb, [facility] [address] [id number] [address] [place] [address] Feb, [facility] [address] [id number] [address] [place] [id number] Feb, IMMUNIZATIONS No Known Immunizations SOCIAL HISTORY [...]
--- OUTSIDE RECORDS SUMMARY | 2020-06-17 08:41 | XMS REPORT ---
Author Author Barrie BUSTILLO Organization [facility] Address [address] [place] [address] Care Team Providers Care Flexboard Operator Name Role Phone BARRIE BUSTILLO Unavailable PROBLEMS Type Condition ICD9-CM Code IAL20-MG Code Onset Dates Condition S tatus SNOMED Code Problem Diabetes type 2, controlled E11.9 Ac tive 34816947 Problem Essential hypertension I10 Active 20253224 Problem Primary insomnia F51.01 Active 397 2004 Problem Obstructive sleep apnea G47.33 Active 87470393 Problem Urinary hesitancy R39.11 Active 59 23335 Problem Hesitancy of micturition R39.11 Activ e 9961100 Problem Benign prostatic hyperplasia with lower urinary tract symptoms N40.1 Active 886565201 Problem Controlled type 2 diabetes m ellitus without complication, without long- term current use of insulin E11.9 Active 300433559 Problem Mood disorder F39 Active 607375 05 Problem Acute superficial venous thrombosis of left lower extremit y I82.812 Active 48312015394491968 Problem Panlobular emphysema J43.1 Active 4076515 Problem 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.1 Active 271412112 Problem 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 Acti ve 33520162 Problem Arthritis M19.90 Active 4741798 Problem Uncontrolled type 2 diabetes mellitus with hyperglycemia E11.65 Active 524539816 Problem EMIR (obstructive sleep apnea) G47.33 Active [id number] ALLERGIES No Information ENCOUNTERS Encounter Location Date Diagnosis [facility] [address] [facility] [id number] [address] [place] [address] Jul, [facility] [address] [facility] [id number] [address] [place] [address] Apr, [facility] [address] [facility] [id number] [address] [place] [address] March, [facility] [address] [id number] [address] [place] [address] March, Moderate episode of recurren t major depressive disorder F33.1 [place] [address] [facility] [id number] [address] [place] [address] March, Moderate episode of recurren t major depressive disorder F33.1 [place] [address] [facility] [id number] [address] [place] [address] March, Foot callus L84 [place] [address] [facility] [id number] [address] [place] [address] March, Moderate episode of recurren t major depressive disorder F33.1 [place] [address] [facility] [id number] [address] [place] [address] Jan, Foot callus L84 [place] [address] [facility] [id number] [address] [place] [phone] 07 Dec, 2019 Moderate episode of recurren t major depressive disorder F33.1 [place] [address] [id number] [address] [place] [address] 04 Dec, 2019 Moderate episode of recurren t major depressive disorder F33.1 [place] [address] [facility] [id number] [address] [place] [phone] 04 Dec, 2019 Moderate episode of recurren t major depressive disorder F33.1 [place] [address] [facility] [id number] [address] [place] [address] Nov, Panlobular emphysema J43.1 ; Mood disorder F39 and Controlled type 2 diabetes mellitus without complication, without long-term current use of insulin E11.9 [place] [address] [facility] [id number] [address] [place] [address] Nov, [place] [address] [facility] [id number] [address] [place] [address] 02 Nov, 2019 Increased sputum production R09.3 and EMIR (obstructive sleep apnea) G47.33 [place] [address] [facility] [id number] [address] [place] [address] Oct, [facility] [address] [id number] [address] [place] [address] Sep, [facility] [address] [id number] [address] [place] [address] Sep, [facility] [address] [id number] [address] [place] [address] Sep, [facility] [address] [id number] [address] [place] [address] Aug, Moderate episode of recurren t major depressive disorder F33.1 [facility] [address] [id number] [address] [place] [address] Aug, Moderate episode of recurren t major depressive disorder F33.1 [facility] [address] [id number] [address] [place] [address] Aug, Moderate episode of recurren t major depressive disorder F33.1 [facility] [address] [id number] [address] [place] [address] Jul, [facility] [address] [id number] [address] [place] [address] Jul, Foot callus L84 ; Uncontroll ed type 2 diabetes mellitus with hyperglycemia E11.65 ; Arthritis M19.90 ; Encounter for immunization Z23 ; Rib pain on right side R07.81 and Lumbar pain M54.5 [facility] [address] [id number] [address] [place] [address] Jul, [facility] [address] [id number] [address] [place] [address] Jun, [facility] [address] [id number] [address] [place] [address] Jun, [facility] [address] [facility] [id number] [address] [place] [address] Jun, Callus of foot L84 [facility] [address] [id number] [address] [place] [address] Jun, [facility] [address] [id number] [address] [place] [address] Apr, Exercise counseling Z71.82 [facility] [address] [id number] [address] [place] [address] March, Moderate episode of recurren t major depressive disorder F33.1 [facility] [address] [id number] [address] [place] [address] March, Moderate episode of recurren t major depressive disorder F33.1 [facility] [address] [id number] [address] [place] [address] March, Exercise counseling Z71.82 [facility] [address] [id number] [address] [place] [address] March, [facility] [address] [facility] [id number] [address] [place] [address] March, Exercise counseling Z71.82 [facility] [address] [facility] [id number] [address] [place] [address] March, Right otitis media with effu yousuf H65.91 ; 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 and Diabetes type 2, controlled E11.9 [facility] [address] [facility] [id number] [address] [place] [address] March, Moderate episode of recurren t major depressive disorder F33.1 [facility] [address] [id number] [address] [place] [address] March, Exercise counseling Z71.82 [facility] [address] [facility] [id number] [address] [place] [address] March, Exercise counseling Z71.82 [facility] [address] [facility] [id number] [address] [place] [address] March, Callus of foot L84 [facility] [address] [facility] [id number] [address] [place] [address] Feb, Moderate episode of recurren t major depressive disorder F33.1 [facility] [address] [facility] [id number] [address] [place] [address] Feb, [facility] [address] [facility] [id number] [address] [place] [address] Feb, Moderate episode of recurren t major depressive disorder F33.1 [facility] [address] [facility] [id number] [address] [place] [address] Feb, Diabetes type 2, controlled E11.9 and Essential hypertension I10 [place] [address] [facility] [id number] [address] [place] [address] Jan, [place] [address] [facility] [id number] [address] [place] [address] Jan, Callus of foot L84 [place] [address] [facility] [id number] [address] [place] [address] Jan, Moderate episode of recurren t major depressive disorder F33.1 [facility] [address] [place] [id number] [address] [place] [address] Jan, Moderate episode of recurren t major depressive disorder F33.1 [place] [address] [facility] [id number] [address] [place] [address] Dec, Moderate episode of recurren t major depressive disorder F33.1 [facility] [address] [facility] [id number] [address] [place] [address] Dec, Candidiasis of the esophagus B37.81 [facility] [address] [facility] [id number] [address] [place] [address] Dec, [facility] [address] [facility] [id number] [address] [place] [address] 04 Dec, 2018 Fecal occult blood test posi tive R19.5 and Anemia, unspecified type D64.9 [facility] [address] [facility] [id number] [address] [place] [address] Nov, Stool color black K92.1 [facility] [address] [id number] [address] [place] [address] Nov, Stool color black K92.1 [facility] [address] [id number] [address] [place] [address] Nov, Stool color black K92.1 [place] [address] [id number] [address] [place] [address] Nov, [place] [address] [id number] [address] [place] [address] Nov, Moderate episode of recurren t major depressive disorder F33.1 [place] [address] [id number] [address] [place] [address] Oct, Moderate episode of recurren t major depressive disorder F33.1 [place] [address] [facility] [id number] [address] [place] [address] 18 Oct, 2018 Callus of foot L84 and Contr olled type 2 diabetes mellitus without complication, without long-term current use of insulin E11.9 [place] [address] [facility] [id number] [address] [place] [address] 10 Oct, 2018 Moderate episode of recurren t major depressive disorder F33.1 [place] [address] [facility] [id number] [address] [place] [address] 17 Aug, 2018 Mood disorder F39 [place] [address] [facility] [id number] [address] [place] [address] 05 Aug, 2018 Encounter for immunization Z 23 [place] [address] [id number] [address] [place] [address] 26 Jul, 2018 Moderate episode of recurren t major depressive disorder F33.1 [place] [address] [id number] [address] [place] [phone] 24 Jul, 2018 Moderate episode of recurren t major depressive disorder F33.1 [place] [address] [id number] [address] [place] [address] May, [facility] [address] [facility] [id number] [address] [place] [address] May, Moderate episode of recurren t major depressive disorder F33.1 [facility] [address] [id number] [address] [place] [address] May, Moderate episode of recurren t major depressive disorder F33.1 [facility] [address] [id number] [address] [place] [address] Apr, Benign prostatic hyperplasia with lower urinary tract symptoms N40.1 and Hesitancy of micturition R39.11 [facility] [address] [facility] [id number] [address] [place] [address] Apr, Moderate episode of recurren t major depressive disorder F33.1 [facility] [address] [facility] [id number] [address] [place] [address] Apr, Unspecified mood [affective] disorder F39 and Primary insomnia F51.01 [facility] [address] [facility] [id number] [address] [place] [address] Apr, Primary insomnia F51.01 [facility] [address] [facility] [id number] [address] [place] [address] March, Foot callus L84 [facility] [address] [facility] [id number] [address] [place] [address] Feb, Medicare annual wellness vis it, initial Z00.00 [facility] [address] [facility] [id number] [address] [place] [address] Feb, Acute superficial venous thr ombosis of left lower extremity I82.812 [facility] [address] [facility] [id number] [address] [place] [address] Feb, [facility] [address] [facility] [id number] [address] [place] [address] Feb, [facility] [address] [facility] [id number] [address] [place] [phone] 05 Feb, 2018 Acute superficial venous thr ombosis of left lower extremity I82.812 [facility] [address] [facility] [id number] [address] [place] [address] Feb, [facility] [address] [facility] [id number] [address] [place] [address] Feb, Other specified soft tissue disorders M79.89 and Pain in left leg M79.605 [facility] [address] [facility] [id number] [address] [place] [address] 05 Jan, 2018 Obstructive sleep apnea G47. 33 [place] [address] [facility] [id number] [address] [place] [id number] 19 Dec, 2017 Obstructive sleep apnea G47. 33 and Mood disorder F39 [facility] [address] [place] [id number] [address] [place] [address] 05 Dec, 2017 [facility] [address] [place] [id number] [address] [place] [address] Dec, [facility] [address] [place] [id number] [address] [place] [address] Nov, Diabetes type 2, controlled E11.9 [facility] [address] [place] [id number] [address] [place] [address] 09 Nov, 2017 Encounter for immunization Z 23 [facility] [address] [place] [id number] [address] [place] [address] Nov, Primary insomnia F51.01 [facility] [address] [facility] [id number] [address] [place] [address] 07 Oct, 2017 Medicare annual wellness vis it, subsequent Z00.00 and Mood disorder F39 [facility] [address] [facility] [id number] [address] [place] [address] Sep, Mood disorder F39 [facility] [address] [place] [id number] [address] [place] [address] Aug, Primary insomnia F51.01 and Urinary hesitancy R39.11 [facility] [address] [facility] [id number] [address] [place] [address] Aug, Primary insomnia F51.01 [facility] [address] [facility] [id number] [address] [place] [address] 07 Jul, 2017 Diabetes type 2, controlled E11.9 ; Primary insomnia F51.01 and Mood disorder F39 [facility] [address] [id number] [id number] Jun, Mood disorder F39 [facility] [address] [id number] [place] [id number] Jun, [facility] [address] [facility] [id number] [address] [place] [address] May, Nightmares F51.5 [facility] [address] [facility] [id number] [address] [place] [address] May, Cognitive complaints R41.9 ; Unspecified mood [affective] disorder F39 and Primary insomnia F51.01 [facility] [address] [facility] [id number] [address] [place] [address] Apr, Mood disorder F39 and Primar y insomnia F51.01 [facility] [address] [facility] [id number] [address] [place] [address] Apr, Cognitive complaints R41.9 a nd Unspecified mood [affective] disorder F39 [facility] [address] [facility] [id number] [address] [place] [address] Apr, Cognitive complaints R41.9 a nd Unspecified mood [affective] disorder F39 [facility] [address] [facility] [id number] [address] [place] [address] March, [facility] [address] [facility] [id number] [address] [place] [address] March, Diabetes type 2, controlled E11.9 and Essential hypertension I10 [facility] [address] [facility] [id number] [address] [place] [address] March, Primary insomnia F51.01 ; Di abetes type 2, controlled E11.9 and Pain in right shoulder M25.511 [facility] [address] [facility] [id number] [address] [place] [address] March, Cognitive complaints R41.9 a nd Unspecified mood [affective] disorder F39 [facility] [address] [facility] [id number] [address] [place] [address] Feb, Other specified mental disor ders due to known physiological condition F06.8 [place] [address] [facility] [id number] [address] [place] [address] Jan, [place] [address] [facility] [id number] [address] [place] [address] Jan, [place] [address] [place] [id number] [address] [place] [address] Dec, Diabetes type 2, controlled E11.9 ; Hypertension, benign I10 and Mood disorder F39 [place] [address] [facility] [id number] [address] [place] [address] Dec, Medicare annual wellness vis it, initial Z00.00 [place] [address] [place] [id number] [address] [place] [address] Nov, Medicare welcome exam Z00.00 ; Encounter for immunization Z23 ; Medicare annual wellness visit, initial Z00.00 and Medicare annual wellness visit, subsequent Z00.00 [place] [address] [facility] [id number] [address] [place] [address] Oct, [facility] [address] [facility] [id number] [address] [place] [address] Sep, [place] [address] [place] [id number] [address] [place] [address] Aug, Encounter for immunization Z 23 and Callus L84 [place] [address] [place] [id number] [address] [place] [address] Aug, [place] [address] [id number] [address] [place] [address] Jul, Diabetes type 2, controlled E11.9 [facility] [address] [id number] [address] [place] [address] Jul, Diabetes type 2, controlled E11.9 [facility] [address] [id number] [address] [place] [address] Jun, [facility] [address] [facility] [id number] [address] [place] [address] Jun, Hypertension, benign I10 ; M ood disorder F39 and Diabetes type 2, controlled E11.9 [facility] [address] [id number] [address] [place] [address] Jun, Mood disorder F39 [facility] [address] [facility] [id number] [address] [place] [address] May, [facility] [address] [facility] [id number] [address] [place] [address] May, Mood disorder F39 [facility] [address] [id number] [address] [place] [address] May, Mood disorder F39 [facility] [address] [facility] [id number] [address] [place] [address] Apr, Controlled type 2 diabetes m ellitus without complication, without long-term current use of insulin E11.9 ; Essential hypertension I10 and Pain in right shoulder M25.511 [facility] [address] [id number] [address] [place] [address] Apr, Mood disorder F39 [facility] [address] [facility] [id number] [address] [place] [address] 07 Apr, 2016 Pre-op evaluation Z01.818 [facility] [address] [facility] [id number] [address] [place] [address] March, Mood disorder F39 [facility] [address] [facility] [id number] [address] [place] [address] Feb, [facility] [address] [id number] [address] [place] [address] Feb, Shoulder pain, right M25.511 [facility] [address] [id number] [address] [place] [address] Feb, Shoulder pain, right M25.511 [facility] [address] [id number] [address] [place] [address] Feb, Shoulder pain, right M25.511 [facility] [address] [id number] [address] [place] [address] Feb, Shoulder pain, right M25.511 [facility] [address] [id number] [address] [place] [address] Jan, Shoulder pain, right M25.511 [facility] [address] [id number] [address] [place] [id number] Jan, Shoulder pain, right M25.511 [facility] [address] [id number] [address] [place] [id number] Jan, [facility] [address] [id number] [address] [place] [id number] Jan, Diabetes type 2, controlled E11.9 [facility] [address] [id number] [address] [place] [id number] Jan, Shoulder pain, right M25.511 ; Diabetes mellitus without mention of complication, type II or unspecified type, not stated as uncontrolled 250.00 and Diabetes type 2, controlled E11.9 [facility] [address] [id number] [address] [place] [id number] Jan, [facility] [address] [id number] [address] [place] [id number] Jan, [facility] [address] [id number] [address] [place] [id number] Dec, [facility] [address] [id number] [address] [place] [phone] Oct, Callus of foot L84 [facility] [id number] [place] [phone] Oct, Anxiety F41.9 ; Callus of fo ot L84 and Dysuria R30.0 [facility] [address] [id number] [address] [place] [id number] Sep, Diabetes mellitus without me ntion of complication, type II or unspecified type, not stated as uncontrolled 250.00 [facility] [address] [id number] [address] [place] [phone] Aug, Diabetes mellitus without me ntion of complication, type II or unspecified type, not stated as uncontrolled 250.00 [facility] [address] [id number] [address] [place] [id number] Jul, [facility] [address] [id number] [address] [place] [id number] Jul, [facility] [address] [id number] [address] [place] [phone] Jul, Diabetes mellitus without me ntion of complication, type II or unspecified type, not stated as uncontrolled 250.00 ; Essential hypertension, benign 401.1 and Anxiety state, unspecified 300.00 [facility] [address] [id number] [address] [place] [address] Jul, [facility] [address] [id number] [address] [place] [address] Jun, [facility] [address] [id number] [address] [place] [address] Jun, [facility] [address] [id number] [address] [place] [address] May, [facility] [address] [id number] [address] [place] [address] May, [facility] [address] [id number] [address] [place] [address], [place] [address] Apr, [facility] [address] [id number] [address] [place] [address], [place] [address] Apr, Mood disorder 296.90 [facility] [address] [id number] [address] [place] [address], [place] [address] March, [facility] [address] [id number] [address] [place] [address], [place] [address] Feb, [facility] [address] [id number] [address] [place] [address], [place] [address] Feb, [facility] [address] [id number] [address] [place] [address], [place] [address] Jan, [facility] [address] [id number] [address] [place] [address], [place] [address] Jan, [facility] [address] [id number] [address] [place] [address], [place] [address] Jan, [facility] [address] [id number] [address] [place] [address], [place] [address] Jan, [facility] [address] [id number] [address] [place] [address], [place] [address] Jan, [facility] [address] [id number] [address] [place] [address], [place] [address] Jan, [facility] [address] [id number] [address] [place] [address], [place] [address] Jan, [facility] [address] [id number] [address] [place] [address], [place] [address] Jan, [facility] [address] [id number] [address] [place] [address], [place] [address] Dec, [facility] [address] [id number] [address] [place] [address], [place] [address] Dec, [facility] [address] [id number] [address] [place] [address], [place] [address] Nov, [facility] [address] [id number] [address] [place] [address], [place] [address] Nov, [facility] [address] [id number] [address] [place] [address], [place] [address] Nov, [facility] [address] [id number] [address] [place] [address], [place] [address] Nov, [facility] [address] [id number] [address] [place] [address], [place] [address] Oct, [facility] [address] [id number] [address] [place] [address], [place] [address] Oct, [facility] [address] [id number] [address] [place] [address], [place] [address] Oct, [facility] [address] [id number] [address] [place] [address], [place] [address] Oct, [facility] [address] [id number] [address] [place] [address], [place] [address] Oct, [facility] [address] [id number] [address] [place] [address], [place] [address] Oct, [facility] [address] [id number] [address] [place] [address], [place] [address] Oct, [facility] [address] [id number] [address] [place] [address], [place] [address] Oct, [facility] [address] [id number] [address] [place] [address], [place] [address] 15 Oct, 2014 [facility] [address] [id number] [address] [place] [address], [place] [address] Oct, [facility] [address] [id number] [address] [place] [address], [place] [address] Sep, [facility] [address] [id number] [address] [place] [address], [place] [address] Sep, [facility] [address] [id number] [address] [place] [address], [place] [address] Sep, [facility] [address] [id number] [address] [place] [address], [place] [address] Sep, [facility] [address] [id number] [address] [place] [address], [place] [address] Sep, [facility] [address] [id number] [address] [place] [address], [place] [address] Sep, [facility] [address] [id number] [address] [place] [address], [place] [address] Aug, [facility] [address] [id number] [address] [place] [address], [place] [address] Aug, [facility] [address] [id number] [address] [place] [address], [place] [address] Jul, [facility] [address] [id number] [address] [place] [address], [place] [address] Jul, [facility] [address] [id number] [address] [place] [address], [place] [address] Jun, [facility] [address] [id number] [address] [place] [address], [place] [address] Jun, [facility] [address] [id number] [address] [place] [address], [place] [address] May, [facility] [address] [id number] [address] [place] [address], [place] [address] May, [facility] [address] [id number] [address] [place] [address], [place] [address] Apr, [facility] [address] [id number] [address] [place] [address], [place] [address] Apr, [facility] [address] [id number] [address] [place] [address], [place] [address] Apr, [facility] [address] [id number] [address] [place] [address], [place] [address] Apr, [facility] [address] [id number] [address] [place] [address], [place] [address] March, [facility] [address] [id number] [address] [place] [address], [place] [address] March, [facility] [address] [id number] [address] [place] [address], [place] [address] Jan, [facility] [address] [id number] [address] [place] [address], [place] [address] Jan, [facility] [address] [id number] [address] [place] [address], [place] [address] Jan, [facility] [address] [id number] [address] [place] [address], [place] [address] Jan, [facility] [address] [id number] [address] [place] [address], [place] [address] Jan, [facility] [address] [id number] [address] [place] [address], [place] [address] Jan, [facility] [address] [id number] [address] [place] [address], [place] [address] Dec, [facility] [address] [id number] [address] [place] [address], [place] [address] Dec, [facility] [address] [id number] [address] [place] [address], [place] [address] Oct, [facility] [address] [id number] [address] [place] [address], [place] [address] Oct, [facility] [address] [id number] [address] [place] [address], [place] [address] Oct, [facility] [address] [id number] [address] [place] [address], [place] [address] Oct, [facility] [address] [id number] [address] [place] [address], [place] [address] Jul, [facility] [address] [id number] [address] [place] [address] Jul, [facility] [address] [id number] [address] [place] [address], [place] [address] Jul, [facility] [address] [id number] [address] [place] [address], [place] [address] Jun, [facility] [address] [id number] [address] [place] [address], [place] [address] Jun, [facility] [address] [id number] [address] [place] [address], [place] [address] May, [facility] [address] [id number] [address] [place] [address], [place] [address] May, [facility] [address] [id number] [address] [place] [address], [place] [address] March, [facility] [address] [id number] [address] [place] [address], [place] [address] March, [facility] [address] [id number] [address] [place] [address], [place] [address] Feb, [facility] [address] [id number] [address] [place] [address], [place] [address] Feb, [facility] [address] [id number] [address] [place] [address], [place] [address] Jan, [facility] [address] [id number] [address] [place] [address], [place] [address] Dec, [facility] [address] [id number] [address] [place] [address], [place] [address] Dec, [facility] [address] [id number] [address] [place] [address], [place] [address] 15 Dec, 2012 [facility] [address] [id number] [address] [place] [address], [place] [address] Dec, [facility] [address] [id number] [address] [place] [address] Dec, [facility] [address] [id number] [address] [place] [address], [place] [address] Nov, [facility] [address] [id number] [address] [place] [address], [place] [address] Oct, [facility] [address] [id number] [address] [place] [address], [place] [address] Oct, [facility] [address] [id number] [address] [place] [address], [place] [address] Aug, [facility] [address] [id number] [address] [place] [address], [place] [address] Aug, [facility] [address] [id number] [address] [place] [address], [place] [address] Aug, [facility] [address] [id number] [address] [place] [address], [place] [address] Aug, [facility] [address] [id number] [address] [place] [address], [place] [address] Aug, [facility] [address] [id number] [address] [place] [address], [place] [address] Jul, [facility] [address] [id number] [address] [place] [address], [place] [address] Jul, [facility] [address] [id number] [address] [place] [address], [place] [address] Jun, [facility] [address] [id number] [address] [place] [address], [place] [address] Jun, [facility] [address] [id number] [address] [place] [address], [place] [address] May, [facility] [address] [id number] [address] [place] [address], [place] [address] May, [facility] [address] [id number] [address] [place] [address], [place] [address] May, [facility] [address] [id number] [place] [address] Apr, [facility] [address] [facility] [id number] [address] [place] [address] Apr, [facility] [address] [facility] [id number] [address] [place] [address] March, [facility] [address] [facility] [id number] [address] [place] [address] March, [facility] [address] [facility] [id number] [address] [place] [address] Feb, [facility] [address] [facility] [id number] [address] [place] [address] Feb, [facility] [address] [facility] [id number] [address] [place] [address] Feb, [facility] [address] [facility] [id number] [address] [place] [address] Feb, IMMUNIZATIONS No Known Immunizations SOCIAL HISTORY [...]
--- OUTSIDE RECORDS SUMMARY | 2020-06-17 08:42 | XMS REPORT ---
Author Author Barrie BUSTILLO Organization [facility] Address [address] [place] [address] Care Team Providers Care Chemical Process Engineer Name Role Phone BARRIE BUSTILLO Unavailable PROBLEMS Type Condition ICD9-CM Code NAR04-RF Code Onset Dates Condition S tatus SNOMED Code Problem Diabetes type 2, controlled E11.9 Ac tive 33018677 Problem Essential hypertension I10 Active 95769271 Problem Primary insomnia F51.01 Active 397 2004 Problem Obstructive sleep apnea G47.33 Active 57435195 Problem Urinary hesitancy R39.11 Active 59 55997 Problem Hesitancy of micturition R39.11 Activ e 4651726 Problem Benign prostatic hyperplasia with lower urinary tract symptoms N40.1 Active 253570085 Problem Controlled type 2 diabetes m ellitus without complication, without long- term current use of insulin E11.9 Active 623408451 Problem Mood disorder F39 Active 240283 05 Problem Acute superficial venous thrombosis of left lower extremit y I82.812 Active [id number] Problem Panlobular emphysema J43.1 Active 2660437 Problem 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.1 Active 454074388 Problem 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 Acti ve 47006818 Problem Arthritis M19.90 Active 0429986 Problem Uncontrolled type 2 diabetes mellitus with hyperglycemia E11.65 Active 438809736 Problem EMIR (obstructive sleep apnea) G47.33 Active 51555058 ALLERGIES No Information ENCOUNTERS Encounter Location Date Diagnosis [facility] [address] [facility] [id number] [address] [place] [id number] March, [facility] [address] [facility] [id number] [address] [place] [phone] Jan, Foot callus L84 [facility] [address] [facility] [id number] [address] [place] [id number] 07 Dec, 2019 Moderate episode of recurren t major depressive disorder F33.1 [facility] [address] [id number] [address] [place] [id number] 04 Dec, 2019 Moderate episode of recurren t major depressive disorder F33.1 [facility] [address] [id number] [address] [place] [id number] 04 Dec, 2019 Moderate episode of recurren t major depressive disorder F33.1 [facility] [address] [id number] [address] [place] [id number] 16 Nov, 2019 Panlobular emphysema J43.1 ; Mood disorder F39 and Controlled type 2 diabetes mellitus without complication, without long-term current use of insulin E11.9 [facility] [address] [id number] [address] [place] [id number] Nov, [facility] [address] [facility] [id number] [address] [place] [id number] Nov, Increased sputum production R09.3 and EMIR (obstructive sleep apnea) G47.33 [facility] [address] [id number] [address] [place] [id number] Oct, [facility] [address] [id number] [address] [place] [id number] Sep, [facility] [address] [id number] [address] [place] [id number] Sep, [facility] [address] [id number] [address] [place] [id number] Sep, [facility] [address] [id number] [address] [place] [id number] Aug, Moderate episode of recurren t major depressive disorder F33.1 [facility] [address] [id number] [address] [place] [id number] Aug, Moderate episode of recurren t major depressive disorder F33.1 [facility] [address] [id number] [address] [place] [id number] Aug, Moderate episode of recurren t major depressive disorder F33.1 [facility] [address] [id number] [address] [place] [id number] Jul, [facility] [address] [id number] [address] [place] [id number] Jul, Foot callus L84 ; Uncontroll ed type 2 diabetes mellitus with hyperglycemia E11.65 ; Arthritis M19.90 ; Encounter for immunization Z23 ; Rib pain on right side R07.81 and Lumbar pain M54.5 [facility] [address] [id number] [address] [place] [id number] Jul, [facility] [address] [id number] [address] [place] [id number] Jun, [facility] [address] [id number] [address] [place] [id number] Jun, [facility] [address] [id number] [address] [place] [id number] Jun, Callus of foot L84 [facility] [address] [id number] [address] [place] [id number] Jun, [facility] [address] [id number] [address] [place] [id number] Apr, Exercise counseling Z71.82 [facility] [address] [id number] [address] [place] [id number] March, Moderate episode of recurren t major depressive disorder F33.1 [facility] [address] [id number] [address] [place] [id number] March, Moderate episode of recurren t major depressive disorder F33.1 [facility] [address] [id number] [address] [place] [id number] March, Exercise counseling Z71.82 [facility] [address] [id number] [address] [place] [id number] March, [facility] [address] [id number] [address] [place] [id number] March, Exercise counseling Z71.82 [place] [address] [id number] [address] [place] [id number] March, Right otitis media with effu yousuf H65.91 ; 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 and Diabetes type 2, controlled E11.9 [facility] [address] [facility] [id number] [address] [place] [id number] March, Moderate episode of recurren t major depressive disorder F33.1 [facility] [address] [id number] [address] [place] [id number] March, Exercise counseling Z71.82 [facility] [address] [facility] [id number] [address] [place] [id number] March, Exercise counseling Z71.82 [facility] [address] [facility] [id number] [address] [place] [id number] March, Callus of foot L84 [facility] [address] [id number] [address] [place] [id number] Feb, Moderate episode of recurren t major depressive disorder F33.1 [facility] [address] [facility] [id number] [address] [place] [id number] Feb, [facility] [address] [facility] [id number] [address] [place] [id number] Feb, Moderate episode of recurren t major depressive disorder F33.1 [facility] [address] [facility] [id number] [address] [place] [id number] Feb, Diabetes type 2, controlled E11.9 and Essential hypertension I10 [facility] [address] [id number] [address] [place] [id number] Jan, [facility] [address] [facility] [id number] [address] [place] [id number] Jan, Callus of foot L84 [facility] [address] [facility] [id number] [address] [place] [id number] Jan, Moderate episode of recurren t major depressive disorder F33.1 [facility] [address] [id number] [address] [place] [id number] Jan, Moderate episode of recurren t major depressive disorder F33.1 [facility] [address] [facility] [id number] [address] [place] [id number] Dec, Moderate episode of recurren t major depressive disorder F33.1 [facility] [address] [facility] [id number] [address] [place] [id number] 11 Dec, 2018 Candidiasis of the esophagus B37.81 [facility] [address] [facility] [id number] [address] [place] [id number] 08 Dec, 2018 [facility] [address] [facility] [id number] [address] [place] [id number] 04 Dec, 2018 Fecal occult blood test posi tive R19.5 and Anemia, unspecified type D64.9 [facility] [address] [facility] [id number] [address] [place] [id number] Nov, Stool color black K92.1 [facility] [place] [address] [facility] [id number] [address] [place] [id number] Nov, Stool color black K92.1 [facility] [place] [address] [facility] [id number] [address] [place] [id number] Nov, Stool color black K92.1 [facility] [address] [facility] [id number] [address] [place] [id number] Nov, [facility] [address] [facility] [id number] [address] [place] [id number] Nov, Moderate episode of recurren t major depressive disorder F33.1 [facility] [address] [facility] [id number] [address] [place] [id number] Oct, Moderate episode of recurren t major depressive disorder F33.1 [facility] [address] [facility] [id number] [address] [place] [id number] Oct, Callus of foot L84 and Contr olled type 2 diabetes mellitus without complication, without long-term current use of insulin E11.9 [facility] [address] [id number] [address] [place] [id number] 10 Oct, 2018 Moderate episode of recurren t major depressive disorder F33.1 [facility] [place] [address] [id number] [address] [place] [id number] Aug, Mood disorder F39 [facility] [address] [id number] [address] [place] [id number] Aug, Encounter for immunization Z 23 [facility] [address] [id number] [address] [place] [id number] Jul, Moderate episode of recurren t major depressive disorder F33.1 [facility] [place] [address] [id number] [address] [place] [phone] Jul, Moderate episode of recurren t major depressive disorder F33.1 [facility] [address] [id number] [address] [place] [id number] May, [facility] [address] [id number] [address] [place] [id number] May, Moderate episode of recurren t major depressive disorder F33.1 [place] [place] [address] [id number] [address] [place] [id number] May, Moderate episode of recurren t major depressive disorder F33.1 [facility] [address] [id number] [address] [place] [id number] Apr, Benign prostatic hyperplasia with lower urinary tract symptoms N40.1 and Hesitancy of micturition R39.11 [place] [place] [address] [id number] [address] [place] [id number] Apr, Moderate episode of recurren t major depressive disorder F33.1 [facility] [address] [id number] [address] [place] [id number] Apr, Unspecified mood [affective] disorder F39 and Primary insomnia F51.01 [facility] [address] [id number] [address] [place] [id number] Apr, Primary insomnia F51.01 [facility] [address] [id number] [address] [place] [id number] March, Foot callus L84 [facility] [address] [id number] [address] [place] [id number] Feb, Medicare annual wellness vis it, initial Z00.00 [facility] [address] [id number] [address] [place] [id number] Feb, Acute superficial venous thr ombosis of left lower extremity I82.812 [facility] [address] [id number] [address] [place] [id number] Feb, [facility] [address] [id number] [address] [place] [id number] Feb, [facility] [address] [id number] [address] [place] [id number] Feb, Acute superficial venous thr ombosis of left lower extremity I82.812 [facility] [address] [id number] [address] [place] [id number] Feb, [facility] [address] [id number] [address] [place] [id number] Feb, Other specified soft tissue disorders M79.89 and Pain in left leg M79.605 [facility] [address] [id number] [address] [place] [id number] Jan, Obstructive sleep apnea G47. 33 [facility] [address] [facility] [id number] [address] [place] [id number] Dec, Obstructive sleep apnea G47. 33 and Mood disorder F39 [facility] [address] [facility] [id number] [address] [place] [id number] Dec, [facility] [address] [facility] [id number] [address] [place] [id number] Dec, [facility] [address] [facility] [id number] [address] [place] [id number] Nov, Diabetes type 2, controlled E11.9 [facility] [address] [facility] [id number] [address] [place] [id number] Nov, Encounter for immunization Z 23 [facility] [address] [facility] [id number] [address] [place] [id number] Nov, Primary insomnia F51.01 [facility] [address] [facility] [id number] [address] [place] [id number] 07 Oct, 2017 Medicare annual wellness vis it, subsequent Z00.00 and Mood disorder F39 [facility] [address] [facility] [id number] [address] [place] [id number] Sep, Mood disorder F39 [facility] [address] [place] [id number] [address] [place] [id number] Aug, Primary insomnia F51.01 and Urinary hesitancy R39.11 [facility] [address] [facility] [id number] [address] [place] [id number] Aug, Primary insomnia F51.01 [facility] [address] [facility] [id number] [address] [place] [id number] Jul, Diabetes type 2, controlled E11.9 ; Primary insomnia F51.01 and Mood disorder F39 [facility] [address] [id number] [id number] Jun, Mood disorder F39 [facility] [address] [id number] Monika ALCOCER S [id number] Jun, [facility] [address] [facility] [id number] [address] [place] [id number] May, Nightmares F51.5 [facility] [address] [facility] [id number] [address] [place] [id number] May, Cognitive complaints R41.9 ; Unspecified mood [affective] disorder F39 and Primary insomnia F51.01 [facility] [address] [id number] [address] [place] [id number] Apr, Mood disorder F39 and Primar y insomnia F51.01 [facility] [address] [id number] [address] [place] [id number] Apr, Cognitive complaints R41.9 a nd Unspecified mood [affective] disorder F39 [facility] [address] [id number] [address] [place] [id number] Apr, Cognitive complaints R41.9 a nd Unspecified mood [affective] disorder F39 [facility] [address] [id number] [address] [place] [id number] March, [facility] [address] [id number] [address] [place] [id number] March, Diabetes type 2, controlled E11.9 and Essential hypertension I10 [facility] [address] [id number] [address] [place] [id number] March, Primary insomnia F51.01 ; Di abetes type 2, controlled E11.9 and Pain in right shoulder M25.511 [facility] [address] [id number] [address] [place] [id number] March, Cognitive complaints R41.9 a nd Unspecified mood [affective] disorder F39 [facility] [address] [id number] [address] [place] [id number] Feb, Other specified mental disor ders due to known physiological condition F06.8 [facility] [address] [id number] [address] [place] [id number] Jan, [facility] [address] [id number] [address] [place] [id number] Jan, [facility] [address] [id number] [address] [place] [id number] Dec, Diabetes type 2, controlled E11.9 ; Hypertension, benign I10 and Mood disorder F39 [facility] [address] [id number] [address] [place] [id number] 08 Dec, 2016 Medicare annual wellness vis it, initial Z00.00 [facility] [address] [id number] [address] [place] [id number] 05 Nov, 2016 Medicare welcome exam Z00.00 ; Encounter for immunization Z23 ; Medicare annual wellness visit, initial Z00.00 and Medicare annual wellness visit, subsequent Z00.00 [facility] [address] [id number] [address] [place] [id number] Oct, [facility] [address] [id number] [address] [place] [id number] Sep, [facility] [address] [facility] [id number] [address] [place] [id number] Aug, Encounter for immunization Z 23 and Callus L84 [facility] [address] [id number] [address] [place] [id number] Aug, [facility] [address] [id number] [address] [place] [id number] Jul, Diabetes type 2, controlled E11.9 [facility] [address] [id number] [address] [place] [id number] Jul, Diabetes type 2, controlled E11.9 [facility] [address] [id number] [address] [place] [id number] Jun, [facility] [address] [id number] [address] [place] [id number] Jun, Hypertension, benign I10 ; M ood disorder F39 and Diabetes type 2, controlled E11.9 [facility] [address] [id number] [address] [place] [id number] Jun, Mood disorder F39 [facility] [address] [facility] [id number] [address] [place] [id number] May, [facility] [address] [id number] [address] [place] [id number] May, Mood disorder F39 [facility] [address] [id number] [address] [place] [id number] May, Mood disorder F39 [facility] [address] [id number] [address] [place] [id number] Apr, Controlled type 2 diabetes m ellitus without complication, without long-term current use of insulin E11.9 ; Essential hypertension I10 and Pain in right shoulder M25.511 [facility] [address] [id number] [address] [place] [id number] Apr, Mood disorder F39 [facility] [address] [id number] [address] [place] [id number] Apr, Pre-op evaluation Z01.818 [facility] [address] [id number] [address] [place] [id number] March, Mood disorder F39 [facility] [address] [id number] [address] [place] [id number] Feb, [facility] [address] [id number] [address] [place] [id number] Feb, Shoulder pain, right M25.511 [facility] [address] [id number] [address] [place] [id number] Feb, Shoulder pain, right M25.511 [facility] [address] [id number] [address] [place] [id number] Feb, Shoulder pain, right M25.511 [facility] [address] [id number] [address] [place] [id number] Feb, Shoulder pain, right M25.511 [facility] [address] [id number] [address] [place] [id number] Jan, Shoulder pain, right M25.511 [facility] [address] [id number] [address] [place] [id number] Jan, Shoulder pain, right M25.511 [place] [place] [address] [facility] [id number] [address] [place] [id number] Jan, [facility] [address] [place] [id number] [address] [place] [id number] Jan, Diabetes type 2, controlled E11.9 [place] [address] [facility] [id number] [address] [place] [id number] Jan, Shoulder pain, right M25.511 ; Diabetes mellitus without mention of complication, type II or unspecified type, not stated as uncontrolled 250.00 and Diabetes type 2, controlled E11.9 [place] [address] [facility] [id number] [address] [place] [id number] Jan, [place] [address] [place] [id number] [place] [id number] Jan, [place] [address] [place] [id number] [place] [id number] Dec, [place] [address] [place] [id number] [address] [place] [id number] Oct, Callus of foot L84 [place] [address] [place] [id number] [address] [place] [id number] Oct, Anxiety F41.9 ; Callus of fo ot L84 and Dysuria R30.0 [place] [address] [place] [id number] [address] [place] [id number] Sep, Diabetes mellitus without me ntion of complication, type II or unspecified type, not stated as uncontrolled 250.00 [place] [address] [place] [id number] [address] [place] [id number] Aug, Diabetes mellitus without me ntion of complication, type II or unspecified type, not stated as uncontrolled 250.00 [place] [address] [place] [id number] [address] [place] [id number] Jul, [place] [address] [place] [id number] [place] [id number] Jul, [facility] [address] [id number] [address] [place] [id number] Jul, Diabetes mellitus without me ntion of complication, type II or unspecified type, not stated as uncontrolled 250.00 ; Essential hypertension, benign 401.1 and Anxiety state, unspecified 300.00 [facility] [address] [id number] [address] [place] [id number] Jul, [facility] [address] [id number] [address] [place] [id number] Jun, [facility] [address] [id number] [address] [place] [id number] Jun, [facility] [address] [id number] [address] [place] [id number] May, [facility] [address] [id number] [address] [place] [id number] May, [facility] [address] [id number] [address] [place] [id number] Apr, [facility] [address] [id number] [address] [place] [id number] Apr, Mood disorder 296.90 [facility] [address] [id number] [address] [place] [id number] March, [facility] [address] [id number] [address] [place] [id number] Feb, [facility] [address] [id number] [address] [place] [id number] Feb, [facility] [address] [id number] [address] [place] [id number] Jan, [facility] [address] [id number] [address] [place] [id number] Jan, [facility] [address] [id number] [address] [place] [id number] Jan, [facility] [address] [id number] [address] [place] [address], [place] [id number] Jan, [facility] [address] [id number] [address] [place] [address], [place] [id number] Jan, [facility] [address] [id number] [address] [place] [address], [place] [address] Jan, [facility] [address] [id number] [address] [place] [address], [place] [address] Jan, [facility] [address] [id number] [address] [place] [address], [place] [id number] Jan, [facility] [address] [id number] [address] [place] [address], [place] [id number] Dec, [facility] [address] [id number] [address] [place] [address], [place] [phone] Dec, [facility] [address] [id number] [address] [place] [address], [place] [address] Nov, [facility] [address] [id number] [address] [place] [address], [place] [address] Nov, [facility] [address] [id number] [address] [place] [address], [place] [address] Nov, [facility] [address] [id number] [address] [place] [address], [place] [address] Nov, [facility] [address] [id number] [address] [place] [address], [place] [phone] Oct, [facility] [address] [id number] [address] [place] [address], [place] [address] Oct, [facility] [address] [id number] [address] [place] [address], [place] [address] Oct, [facility] [address] [id number] [address] [place] [address], [place] [address] Oct, [facility] [address] [id number] [address] [place] [address], [place] [id number] 24 Oct, 2014 [facility] [address] [id number] [address] [place] [address], [place] [id number] 24 Oct, 2014 [facility] [address] [id number] [address] [place] [address], [place] [id number] 17 Oct, 2014 [facility] [address] [id number] [address] [place] [address], [place] [phone] 17 Oct, 2014 [facility] [address] [id number] [address] [place] [address], [place] [id number] 15 Oct, 2014 [facility] [place] [address] [id number] [address] [place] [address], [place] [id number] 15 Oct, 2014 [facility] [place] [address] [id number] [address] [place] [address], [place] [id number] 19 Sep, 2014 [facility] [place] [address] [id number] [address] [place] [address], [place] [id number] 19 Sep, 2014 [facility] [address] [id number] [address] [place] [address], [place] [id number] 18 Sep, 2014 [facility] [place] [address] [id number] [address] [place] [address], [place] [id number] 18 Sep, 2014 [facility] [place] [address] [id number] [address] [place] [address], [place] [id number] 18 Sep, 2014 [facility] [address] [id number] [address] [place] [address], [place] [phone] 18 Sep, 2014 [facility] [address] [id number] [address] [place] [address], [place] [id number] 16 Aug, 2014 [facility] [address] [id number] [address] [place] [address], [place] [id number] 16 Aug, 2014 [facility] [place] [address] [id number] [address] [place] [address], [place] [phone] 19 Jul, 2014 [facility] [place] [address] [id number] [address] [place] [address], [place] [phone] Jul, [facility] [address] [id number] [facility] [place] [address] Jun, [facility] [address] [id number] [address] [place] [address], [place] [id number] Jun, [facility] [address] [id number] [facility] [place] [address] May, [facility] [address] [id number] [address] [place] [address], [place] [phone] May, [facility] [address] [id number] [address] [place] [address], [place] [id number] Apr, [facility] [address] [id number] [address] [place] [address], [place] [phone] Apr, [facility] [address] [id number] [address] [place] [address], [place] [phone] Apr, [facility] [address] [id number] [address] [place] [address], [place] [phone] Apr, [facility] [address] [id number] [address] [place] [address], [place] [id number] March, [facility] [address] [id number] [address] [place] [address], [place] [id number] March, [facility] [address] [id number] [address] [place] [address], [place] [address] Jan, [facility] [address] [id number] [address] [place] [address], [place] [phone] Jan, [facility] [address] [id number] [address] [place] [address], [place] [address] Jan, [facility] [address] [id number] [address] [place] [address], [place] [id number] Jan, [facility] [address] [id number] [address] [place] [address], [place] [id number] Jan, [facility] [place] [facility] [address] [id number] [address] [place] [address] Jan, [facility] [address] [id number] [address] [place] [address], [place] [address] Dec, [facility] [address] [id number] [address] [place] [address], [place] [phone] Dec, [facility] [address] [id number] [address] [place] [address], [place] [phone] Oct, [facility] [address] [id number] [address] [place] [address], [place] [id number] Oct, [facility] [address] [id number] [address] [place] [address], [place] [phone] Oct, [facility] [address] [id number] [address] [place] [address], [place] [address] Oct, [facility] [address] [id number] [address] [place] [address], [place] [id number] Jul, [facility] [address] [id number] [address] [place] [address], [place] [id number] Jul, [facility] [address] [id number] [address] [place] [address], [place] [phone] Jul, [facility] [address] [id number] [address] [place] [address], [place] [phone] Jun, [facility] [address] [id number] [address] [place] [address], [place] [id number] Jun, [facility] [address] [id number] [address] [place] [address], [place] [id number] May, [facility] [address] [id number] [address] [place] [address], [place] [address] May, [facility] [address] [id number] [address] [place] [address], [place] [address] March, [facility] [address] [id number] [address] [place] [address], [place] [address] March, [facility] [address] [id number] [address] [place] [address], [place] [address] Feb, [facility] [address] [id number] [address] [place] [address], [place] [phone] Feb, [facility] [address] [id number] [address] [place] [address], [place] [phone] Jan, [facility] [address] [id number] [address] [place] [address], [place] [address] Dec, [facility] [address] [id number] [address] [place] [address], [place] [address] Dec, [facility] [address] [id number] [address] [place] [address], [place] [address] Dec, [facility] [address] [id number] [address] [place] [address], [place] [address] Dec, [facility] [address] [id number] [address] [place] [id number] Dec, [facility] [address] [id number] [address] [place] [id number] Nov, [facility] [address] [id number] [address] [place] [phone] Oct, [facility] [address] [id number] [address] [place] [phone] Oct, [facility] [address] [id number] [address] [place] [phone] Aug, [facility] [address] [id number] [address] [place] [address], [place] [address] Aug, [facility] [address] [id number] [address] [place] [id number] Aug, [facility] [address] [id number] [address] [place] [id number] Aug, [facility] [address] [id number] [address] [place] [address], [place] [phone] 02 Aug, 2012 [facility] [address] [id number] [address] [place] [address], [place] [phone] Jul, [facility] [address] [id number] [address] [place] [address], [place] [address] Jul, [facility] [address] [id number] [address] [place] [address], [place] [phone] Jun, [facility] [address] [id number] [address] [place] [address], [place] [id number] Jun, [facility] [address] [id number] [address] [place] [address], [place] [id number] 30 May, 2012 [facility] [address] [id number] [address] [place] [address], [place] [address] May, [facility] [address] [id number] [address] [place] [address], [place] [phone] May, [facility] [address] [id number] [address] [place] [address], [place] [id number] Apr, [facility] [address] [id number] [address] [place] [address], [place] [phone] Apr, [facility] [address] [id number] [address] [place] [address], [place] [id number] March, [facility] [address] [id number] [address] [place] [address], [place] [id number] March, [facility] [address] [id number] [address] [place] [id number] 18 Feb, 2012 [facility] [address] [id number] [address] [place] [address], [place] [id number] 17 Feb, 2012 [facility] [address] [id number] [address] [place] [address], [place] [phone] Feb, [facility] [address] [id number] [address] [place] [id number] Feb, IMMUNIZATIONS No Known Immunizations SOCIAL HISTORY Never Assessed REASON FOR VISIT PLAN OF CARE VITAL SIGNS Height 71 in 2014-12-06 Weight 272.2 lbs 2014-12-06 Temperature 97.6 degrees Fahrenheit 2014-12-06 Heart Rate 70 bpm 2014-12-06 Respiratory Rate 16 2014-12-06 Blood pressure systolic 122 mmHg 2014-12-06 Blood pressure diastolic 82 mmHg 2014-12-06 MEDICATIONS Unknown Medications RESULTS No Results PROCEDURES [...]
--- OUTSIDE RECORDS SUMMARY | 2020-06-17 08:42 | XMS REPORT ---
Author Author Barrie SIMMONS Organization [facility] Address [address] [place] [address] Care Team Providers Care Primary [place] Name Role Phone JOYCE SIMMONS Unavailable PROBLEMS Type Condition ICD9-CM Code OAV96-ND Code Onset Dates Condition S tatus SNOMED Code Problem Diabetes type 2, controlled E11.9 Ac tive 18916915 Problem Essential hypertension I10 Active 04507973 Problem Primary insomnia F51.01 Active 397 2004 Problem Obstructive sleep apnea G47.33 Active 05365834 Problem Urinary hesitancy R39.11 Active 59 66734 Problem Hesitancy of micturition R39.11 Activ e 7331264 Problem Benign prostatic hyperplasia with lower urinary tract symptoms N40.1 Active 164661973 Problem Controlled type 2 diabetes m ellitus without complication, without long- term current use of insulin E11.9 Active 130586706 Problem Mood disorder F39 Active 355210 05 Problem Acute superficial venous thrombosis of left lower extremit y I82.812 Active [id number] Problem Panlobular emphysema J43.1 Active 8195720 Problem 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.1 Active 189901913 Problem 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 Acti ve 45325239 Problem Arthritis M19.90 Active 0556623 Problem Uncontrolled type 2 diabetes mellitus with hyperglycemia E11.65 Active 879548764 Problem EMIR (obstructive sleep apnea) G47.33 Active 77739670 ALLERGIES No Information ENCOUNTERS Encounter Location Date Diagnosis [facility] [address] [facility] [id number] [address] [place] [phone] Jul, [facility] [address] [facility] [id number] [address] [place] [phone] Apr, [facility] [address] [facility] [id number] [address] [place] [id number] March, [facility] [address] [id number] [address] [place] [phone] March, Moderate episode of recurren t major depressive disorder F33.1 [place] [address] [id number] [address] [place] [phone] March, Moderate episode of recurren t major depressive disorder F33.1 [place] [address] [id number] [address] [place] [phone] March, Foot callus L84 [place] [address] [id number] [address] [place] [phone] March, Moderate episode of recurren t major depressive disorder F33.1 [place] [address] [id number] [address] [place] [phone] Jan, Foot callus L84 [place] [address] [facility] [id number] [address] [place] [phone] 07 Dec, 2019 Moderate episode of recurren t major depressive disorder F33.1 [place] [address] [id number] [address] [place] [phone] 04 Dec, 2019 Moderate episode of recurren t major depressive disorder F33.1 [place] [address] [facility] [id number] [address] [place] [phone] 04 Dec, 2019 Moderate episode of recurren t major depressive disorder F33.1 [place] [address] [facility] [id number] [address] [place] [phone] 16 Nov, 2019 Panlobular emphysema J43.1 ; Mood disorder F39 and Controlled type 2 diabetes mellitus without complication, without long-term current use of insulin E11.9 [place] [address] [facility] [id number] [address] [place] [id number] Nov, [place] [address] [facility] [id number] [address] [place] [phone] 02 Nov, 2019 Increased sputum production R09.3 and EMIR (obstructive sleep apnea) G47.33 [place] [address] [facility] [id number] [address] [place] [phone] Oct, [facility] [address] [id number] [address] [place] [phone] Sep, [facility] [address] [facility] [id number] [address] [place] [phone] Sep, [facility] [address] [facility] [id number] [address] [place] [phone] Sep, [facility] [address] [facility] [id number] [address] [place] [phone] Aug, Moderate episode of recurren t major depressive disorder F33.1 [facility] [address] [facility] [id number] [address] [place] [phone] Aug, Moderate episode of recurren t major depressive disorder F33.1 [facility] [address] [facility] [id number] [address] [place] [id number] Aug, Moderate episode of recurren t major depressive disorder F33.1 [facility] [address] [facility] [id number] [address] [place] [phone] Jul, [facility] [address] [facility] [id number] [address] [place] [id number] Jul, Foot callus L84 ; Uncontroll ed type 2 diabetes mellitus with hyperglycemia E11.65 ; Arthritis M19.90 ; Encounter for immunization Z23 ; Rib pain on right side R07.81 and Lumbar pain M54.5 [facility] [address] [facility] [id number] [address] [place] [phone] Jul, [facility] [address] [facility] [id number] [address] [place] [phone] Jun, [facility] [address] [facility] [id number] [address] [place] [phone] Jun, [facility] [address] [facility] [id number] [address] [place] [id number] Jun, Callus of foot L84 [facility] [address] [id number] [address] [place] [phone] Jun, [facility] [address] [id number] [address] [place] [phone] Apr, Exercise counseling Z71.82 [facility] [address] [id number] [address] [place] [phone] March, Moderate episode of recurren t major depressive disorder F33.1 [facility] [address] [id number] [address] [place] [phone] March, Moderate episode of recurren t major depressive disorder F33.1 [place] [address] [id number] [address] [place] [address] March, Exercise counseling Z71.82 [place] [address] [facility] [id number] [address] [place] [phone] March, [place] [address] [id number] [address] [place] [phone] March, Exercise counseling Z71.82 [place] [address] [facility] [id number] [address] [place] [phone] March, Right otitis media with effu yousuf H65.91 ; 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 and Diabetes type 2, controlled E11.9 [place] [address] [id number] [address] [place] [phone] March, Moderate episode of recurren t major depressive disorder F33.1 [facility] [address] [id number] [address] [place] [address] March, Exercise counseling Z71.82 [place] [address] [facility] [id number] [address] [place] [address] March, Exercise counseling Z71.82 [place] [address] [id number] [address] [place] [phone] March, Callus of foot L84 [place] [address] [id number] [address] [place] [phone] Feb, Moderate episode of recurren t major depressive disorder F33.1 [facility] [address] [facility] [id number] [address] [place] [id number] Feb, [facility] [address] [facility] [id number] [address] [place] [id number] Feb, Moderate episode of recurren t major depressive disorder F33.1 [facility] [address] [facility] [id number] [address] [place] [phone] Feb, Diabetes type 2, controlled E11.9 and Essential hypertension I10 [place] [address] [facility] [id number] [address] [place] [phone] Jan, [place] [address] [place] [id number] [address] [place] [phone] Jan, Callus of foot L84 [place] [address] [place] [id number] [address] [place] [address] Jan, Moderate episode of recurren t major depressive disorder F33.1 [facility] [address] [place] [id number] [address] [place] [phone] Jan, Moderate episode of recurren t major depressive disorder F33.1 [place] [address] [place] [id number] [address] [place] [phone] Dec, Moderate episode of recurren t major depressive disorder F33.1 [place] [address] [place] [id number] [address] [place] [phone] Dec, Candidiasis of the esophagus B37.81 [facility] [address] [facility] [id number] [address] [place] [id number] Dec, [facility] [address] [place] [id number] [address] [place] [phone] 04 Dec, 2018 Fecal occult blood test posi tive R19.5 and Anemia, unspecified type D64.9 [facility] [address] [facility] [id number] [address] [place] [phone] Nov, Stool color black K92.1 [facility] [address] [id number] [address] [place] [address] Nov, Stool color black K92.1 [facility] [address] [id number] [address] [place] [phone] Nov, Stool color black K92.1 [place] [address] [id number] [address] [place] [address] Nov, [place] [address] [id number] [address] [place] [phone] Nov, Moderate episode of recurren t major depressive disorder F33.1 [place] [address] [facility] [id number] [address] [place] [address] Oct, Moderate episode of recurren t major depressive disorder F33.1 [place] [address] [facility] [id number] [address] [place] [phone] 18 Oct, 2018 Callus of foot L84 and Contr olled type 2 diabetes mellitus without complication, without long-term current use of insulin E11.9 [place] [address] [facility] [id number] [address] [place] [phone] 10 Oct, 2018 Moderate episode of recurren t major depressive disorder F33.1 [place] [address] [facility] [id number] [address] [place] [id number] 17 Aug, 2018 Mood disorder F39 [place] [address] [facility] [id number] [address] [place] [phone] 05 Aug, 2018 Encounter for immunization Z 23 [place] [address] [id number] [address] [place] [phone] 26 Jul, 2018 Moderate episode of recurren t major depressive disorder F33.1 [place] [address] [id number] [address] [place] [phone] 24 Jul, 2018 Moderate episode of recurren t major depressive disorder F33.1 [place] [address] [id number] [address] [place] [phone] May, [facility] [address] [id number] [address] [place] [phone] May, Moderate episode of recurren t major depressive disorder F33.1 [facility] [address] [id number] [address] [place] [phone] May, Moderate episode of recurren t major depressive disorder F33.1 [facility] [address] [facility] [id number] [address] [place] [id number] Apr, Benign prostatic hyperplasia with lower urinary tract symptoms N40.1 and Hesitancy of micturition R39.11 [facility] [address] [facility] [id number] [address] [place] [phone] Apr, Moderate episode of recurren t major depressive disorder F33.1 [facility] [address] [facility] [id number] [address] [place] [phone] Apr, Unspecified mood [affective] disorder F39 and Primary insomnia F51.01 [facility] [address] [facility] [id number] [address] [place] [address] Apr, Primary insomnia F51.01 [facility] [address] [facility] [id number] [address] [place] [phone] March, Foot callus L84 [facility] [address] [facility] [id number] [address] [place] [address] Feb, Medicare annual wellness vis it, initial Z00.00 [facility] [address] [id number] [address] [place] [address] Feb, Acute superficial venous thr ombosis of left lower extremity I82.812 [facility] [address] [facility] [id number] [address] [place] [phone] Feb, [facility] [address] [facility] [id number] [address] [place] [phone] Feb, [facility] [address] [place] [id number] [address] [place] [id number] 05 Feb, 2018 Acute superficial venous thr ombosis of left lower extremity I82.812 [facility] [address] [facility] [id number] [address] [place] [phone] Feb, [facility] [address] [facility] [id number] [address] [place] [phone] Feb, Other specified soft tissue disorders M79.89 and Pain in left leg M79.605 [facility] [address] [facility] [id number] [address] [place] [phone] Jan, Obstructive sleep apnea G47. 33 [place] [address] [place] [id number] [place] [phone] Dec, Obstructive sleep apnea G47. 33 and Mood disorder F39 [place] [address] [place] [id number] [address] [place] [phone] Dec, [facility] [address] [place] [id number] [address] [place] [id number] Dec, [facility] [address] [id number] Nov, Diabetes type 2, controlled E11.9 [place] [address] [place] [id number] [address] [place] [phone] Nov, Encounter for immunization Z 23 [facility] [address] [place] [id number] [address] [place] [phone] Nov, Primary insomnia F51.01 [facility] [address] [place] [id number] [address] [place] [id number] 07 Oct, 2017 Medicare annual wellness vis it, subsequent Z00.00 and Mood disorder F39 [facility] [address] [facility] [id number] [address] [place] [id number] Sep, Mood disorder F39 [facility] [address] [place] [id number] [address] [place] [address] Aug, Primary insomnia F51.01 and Urinary hesitancy R39.11 [facility] [address] [facility] [id number] [address] [place] [phone] Aug, Primary insomnia F51.01 [facility] [address] [facility] [id number] [address] [place] [address] Jul, Diabetes type 2, controlled E11.9 ; Primary insomnia F51.01 and Mood disorder F39 [facility] [address] [id number] [id number] Jun, Mood disorder F39 [facility] [address] [id number] [place] [id number] Jun, [facility] [address] [facility] [id number] [address] [place] [address] May, Nightmares F51.5 [facility] [address] [facility] [id number] [address] [place] [address] May, Cognitive complaints R41.9 ; Unspecified mood [affective] disorder F39 and Primary insomnia F51.01 [facility] [address] [facility] [id number] [address] [place] [address] Apr, Mood disorder F39 and Primar y insomnia F51.01 [facility] [address] [facility] [id number] [address] [place] [id number] Apr, Cognitive complaints R41.9 a nd Unspecified mood [affective] disorder F39 [facility] [address] [facility] [id number] [address] [place] [address] Apr, Cognitive complaints R41.9 a nd Unspecified mood [affective] disorder F39 [facility] [address] [facility] [id number] [address] [place] [phone] March, [facility] [address] [facility] [id number] [address] [place] [phone] March, Diabetes type 2, controlled E11.9 and Essential hypertension I10 [facility] [address] [facility] [id number] [address] [place] [address] March, Primary insomnia F51.01 ; Di abetes type 2, controlled E11.9 and Pain in right shoulder M25.511 [facility] [address] [facility] [id number] [address] [place] [id number] March, Cognitive complaints R41.9 a nd Unspecified mood [affective] disorder F39 [facility] [address] [facility] [id number] [address] [place] [address] Feb, Other specified mental disor ders due to known physiological condition F06.8 [place] [address] [facility] [id number] [address] [place] [phone] Jan, [place] [address] [place] [id number] [address] [place] [id number] Jan, [place] [address] [facility] [id number] [address] [place] [id number] Dec, Diabetes type 2, controlled E11.9 ; Hypertension, benign I10 and Mood disorder F39 [place] [address] [facility] [id number] [address] [place] [id number] Dec, Medicare annual wellness vis it, initial Z00.00 [place] [address] [place] [id number] [address] [place] [id number] Nov, Medicare welcome exam Z00.00 ; Encounter for immunization Z23 ; Medicare annual wellness visit, initial Z00.00 and Medicare annual wellness visit, subsequent Z00.00 [place] [address] [place] [id number] [address] [place] [address] Oct, [place] [address] [facility] [id number] [address] [place] [phone] Sep, [place] [address] [place] [id number] [address] [place] [id number] Aug, Encounter for immunization Z 23 and Callus L84 [place] [address] [place] [id number] [address] [place] [phone] Aug, [facility] [address] [id number] [address] [place] [id number] Jul, Diabetes type 2, controlled E11.9 [facility] [address] [id number] [address] [place] [id number] Jul, Diabetes type 2, controlled E11.9 [facility] [address] [id number] [address] [place] [phone] Jun, [facility] [address] [id number] [address] [place] [address] Jun, Hypertension, benign I10 ; M ood disorder F39 and Diabetes type 2, controlled E11.9 [facility] [address] [id number] [address] [place] [id number] Jun, Mood disorder F39 [facility] [address] [facility] [id number] [address] [place] [phone] May, [facility] [address] [id number] [address] [place] [phone] May, Mood disorder F39 [facility] [address] [facility] [id number] [address] [place] [id number] May, Mood disorder F39 [facility] [address] [facility] [id number] [address] [place] [id number] Apr, Controlled type 2 diabetes m ellitus without complication, without long-term current use of insulin E11.9 ; Essential hypertension I10 and Pain in right shoulder M25.511 [facility] [address] [id number] [address] [place] [address] Apr, Mood disorder F39 [facility] [address] [facility] [id number] [address] [place] [id number] Apr, Pre-op evaluation Z01.818 [facility] [address] [facility] [id number] [address] [place] [id number] March, Mood disorder F39 [facility] [address] [id number] [address] [place] [id number] Feb, [facility] [address] [id number] [address] [place] [id number] Feb, Shoulder pain, right M25.511 [facility] [address] [id number] [address] [place] [phone] Feb, Shoulder pain, right M25.511 [facility] [address] [id number] [address] [place] [id number] Feb, Shoulder pain, right M25.511 [facility] [address] [id number] [address] [place] [id number] Feb, Shoulder pain, right M25.511 [facility] [address] [id number] [address] [place] [id number] Jan, Shoulder pain, right M25.511 [facility] [address] [id number] [address] [place] [id number] Jan, Shoulder pain, right M25.511 [facility] [address] [id number] [address] [place] [id number] Jan, [facility] [address] [id number] [address] [place] [id number] Jan, Diabetes type 2, controlled E11.9 [facility] [address] [id number] [address] [place] [id number] Jan, Shoulder pain, right M25.511 ; Diabetes mellitus without mention of complication, type II or unspecified type, not stated as uncontrolled 250.00 and Diabetes type 2, controlled E11.9 [facility] [address] [id number] [address] [place] [id number] Jan, [facility] [address] [id number] [address] [place] [id number] Jan, [facility] [address] [id number] [address] [place] [id number] Dec, [facility] [address] [id number] Oct, Callus of foot L84 [facility] [address] [id number] Oct, Anxiety F41.9 ; Callus of fo ot L84 and Dysuria R30.0 [place] [address] [id number] Sep, Diabetes mellitus without me ntion of complication, type II or unspecified type, not stated as uncontrolled 250.00 [facility] [address] [id number] Aug, Diabetes mellitus without me ntion of complication, type II or unspecified type, not stated as uncontrolled 250.00 [facility] [address] [id number] Jul, [facility] [address] [id number] Jul, [facility] [address] [id number] Jul, Diabetes mellitus without me ntion of complication, type II or unspecified type, not stated as uncontrolled 250.00 ; Essential hypertension, benign 401.1 and Anxiety state, unspecified 300.00 [facility] [address] [address] Jul, [facility] [address] [address] Jun, [facility] [address] [address] Jun, [facility] [address] [address] May, [facility] [address] [address] May, [facility] [address] [id number] [address] [place] [address], [place] [address] Apr, [facility] [address] [id number] [address] [place] [address] Apr, Mood disorder 296.90 [facility] [address] [id number] [address] [place] [address], [place] [address] March, [facility] [address] [id number] [address] [place] [address], [place] [address] Feb, [facility] [address] [id number] [address] [place] [address], [place] [address] Feb, [facility] [address] [id number] [address] [place] [address], [place] [address] Jan, [facility] [address] [id number] [address] [place] [address], [place] [address] Jan, [facility] [address] [id number] [address] [place] [address], [place] [address] Jan, [facility] [address] [id number] [address] [place] [address], [place] [address] Jan, [facility] [address] [id number] [address] [place] [address], [place] [address] Jan, [facility] [address] [id number] [address] [place] [address], [place] [address] Jan, [facility] [address] [id number] [address] [place] [phone] Jan, [facility] [address] [id number] [address] [place] [address], [place] [address] Jan, [facility] [address] [id number] [address] [place] [address], [place] [address] Dec, [facility] [address] [id number] [address] [place] [address] Dec, [facility] [address] [id number] [address] [place] [address] Nov, [facility] [address] [id number] [address] [place] [address], [place] [address] Nov, [facility] [address] [id number] [address] [place] [address], [place] [address] Nov, [facility] [address] [id number] [address] [place] [address], [place] [address] Nov, [facility] [address] [id number] [address] [place] [address], [place] [address] Oct, [facility] [address] [id number] [address] [place] [address], [place] [address] Oct, [facility] [address] [id number] [address] [place] [address], [place] [address] Oct, [facility] [address] [id number] [address] [place] [address], [place] [address] Oct, [facility] [address] [id number] [address] [place] [address], [place] [address] Oct, [facility] [address] [id number] [address] [place] [address], [place] [address] Oct, [facility] [address] [id number] [address] [place] [address], [place] [address] Oct, [facility] [address] [id number] [address] [place] [address], [place] [address] Oct, [facility] [address] [id number] [address] [place] [address], [place] [address] Oct, [facility] [address] [id number] [address] [place] [address], [place] [address] Oct, [facility] [address] [id number] [address] [place] [address], [place] [address] Sep, [facility] [address] [id number] [address] [place] [address], [place] [address] Sep, [facility] [address] [id number] [address] [place] [address], [place] [address] Sep, [facility] [address] [id number] [address] [place] [address], [place] [address] Sep, [facility] [address] [id number] [address] [place] [address], [place] [address] Sep, [facility] [address] [id number] [address] [place] [address], [place] [address] Sep, [facility] [address] [id number] [address] [place] [address], [place] [address] Aug, [facility] [address] [id number] [address] [place] [address], [place] [address] Aug, [facility] [address] [id number] [address] [place] [address], [place] [address] Jul, [facility] [address] [id number] [address] [place] [address], [place] [address] Jul, [facility] [address] [id number] [address] [place] [address], [place] [address] Jun, [facility] [address] [id number] [address] [place] [address], [place] [address] Jun, [facility] [address] [id number] [address] [place] [address], [place] [address] May, [facility] [address] [id number] [address] [place] [address], [place] [address] May, [facility] [address] [id number] [address] [place] [address], [place] [address] Apr, [facility] [address] [id number] [address] [place] [address], [place] [address] Apr, [facility] [address] [id number] [address] [place] [address], [place] [address] Apr, [facility] [address] [id number] [address] [place] [address], [place] [address] Apr, [facility] [address] [id number] [facility] [place] [address] March, [facility] [address] [id number] [address] [place] [address], [place] [address] March, [facility] [address] [id number] [address] [place] [address], [place] [address] Jan, [facility] [address] [id number] [address] [place] [address], [place] [address] Jan, [facility] [address] [id number] [address] [place] [address], [place] [address] Jan, [facility] [address] [id number] [address] [place] [address], [place] [address] Jan, [facility] [address] [id number] [address] [place] [address], [place] [address] Jan, [facility] [address] [id number] [address] [place] [address], [place] [address] Jan, [facility] [address] [id number] [address] [place] [address], [place] [address] Dec, [facility] [address] [id number] [address] [place] [address], [place] [address] Dec, [facility] [address] [id number] [address] [place] [address], [place] [address] Oct, [facility] [address] [id number] [address] [place] [address], [place] [address] Oct, [facility] [address] [id number] [address] [place] [address], [place] [address] Oct, [facility] [address] [id number] [address] [place] [address], [place] [address] Oct, [facility] [address] [id number] [address] [place] [address], [place] [address] Jul, [facility] [address] [id number] [address] [place] [address], [place] [address] Jul, [facility] [address] [id number] [address] [place] [address], [place] [address] Jul, [facility] [address] [id number] [address] [place] [address], [place] [address] Jun, [facility] [address] [id number] [address] [place] [address], [place] [address] Jun, [facility] [address] [id number] [address] [place] [address], [place] [address] May, [facility] [address] [id number] [address] [place] [address], [place] [address] May, [facility] [address] [id number] [address] [place] [address], [place] [address] March, [facility] [address] [id number] [address] [place] [address], [place] [address] March, [facility] [address] [id number] [address] [place] [address], [place] [address] Feb, [facility] [address] [id number] [address] [place] [address], [place] [address] Feb, [facility] [address] [id number] [address] [place] [address], [place] [address] Jan, [facility] [address] [id number] [address] [place] [address], [place] [address] Dec, [facility] [address] [id number] [address] [place] [address], [place] [address] Dec, [facility] [address] [id number] [address] [place] [address], [place] [address] 15 Dec, 2012 [facility] [address] [id number] [address] [place] [address], [place] [address] 14 Dec, 2012 [facility] [address] [id number] [address] [place] [address], [place] [address] Dec, [facility] [address] [id number] [address] [place] [address], [place] [address] Nov, [facility] [address] [id number] [address] [place] [address], [place] [address] Oct, [facility] [address] [id number] [address] [place] [address], [place] [address] Oct, [facility] [address] [id number] [address] [place] [address], [place] [address] Aug, [facility] [address] [id number] [address] [place] [address], [place] [address] Aug, [facility] [address] [id number] [address] [place] [address], [place] [address] Aug, [facility] [address] [id number] [address] [place] [address], [place] [address] Aug, [facility] [address] [id number] [address] [place] [address], [place] [address] Aug, [facility] [address] [id number] [address] [place] [address], [place] [address] Jul, [facility] [address] [id number] [address] [place] [address], [place] [address] Jul, [facility] [address] [id number] [address] [place] [address], [place] [address] Jun, [facility] [address] [id number] [address] [place] [address], [place] [address] Jun, [facility] [address] [id number] [address] [place] [address], [place] [address] May, [facility] [address] [id number] [address] [place] [address], [place] [address] May, [facility] [address] [id number] [address] [place] [address], [place] [address] May, [facility] [address] [id number] [address] [place] [address] Apr, [facility] [address] [id number] [address] [place] [address] Apr, [facility] [address] [facility] [id number] [address] [place] [address] March, [facility] [address] [facility] [id number] [address] [place] [address] March, [facility] [address] [facility] [id number] [address] [place] [address] Feb, [facility] [address] [facility] [id number] [address] [place] [id number] Feb, [facility] [address] [facility] [id number] [address] [place] [address] Feb, [facility] [address] [facility] [id number] [address] [place] [address] Feb, IMMUNIZATIONS No Known Immunizations SOCIAL HISTORY Never Assessed REASON FOR VISIT PLAN OF CARE VITAL SIGNS MEDICATIONS Unknown Medications RESULTS No Results PROCEDURES Procedure Date Ordered Result Body Site PSYTX PT&/FAMILY 45 MINUTES May 30, 2013 INSTRUCTIONS MEDICATIONS ADMINISTERED No Known Medications [...]
--- OUTSIDE RECORDS SUMMARY | 2020-06-17 08:42 | XMS REPORT ---
Author Author Barrie BUSTILLO Organization [facility] Address [address] [place] [address] Care Team Providers Care Heel Stainer Name Role Phone BARRIE BUSTILLO Unavailable PROBLEMS Type Condition ICD9-CM Code [id number] Code Onset Dates Condition S tatus SNOMED Code Problem Diabetes type 2, controlled E11.9 Ac tive 48088686 Problem Essential hypertension I10 Active 38668996 Problem Primary insomnia F51.01 Active 397 2004 Problem Obstructive sleep apnea G47.33 Active 89938273 Problem Urinary hesitancy R39.11 Active 59 50176 Problem Hesitancy of micturition R39.11 Activ e 3122612 Problem Benign prostatic hyperplasia with lower urinary tract symptoms N40.1 Active 044691017 Problem Controlled type 2 diabetes m ellitus without complication, without long- term current use of insulin E11.9 Active 499297144 Problem Mood disorder F39 Active 575306 05 Problem Acute superficial venous thrombosis of left lower extremit y I82.812 Active [id number] Problem Panlobular emphysema J43.1 Active 9988530 Problem 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.1 Active 632205735 Problem 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 Acti ve 87395974 Problem Arthritis M19.90 Active 1614331 Problem Uncontrolled type 2 diabetes mellitus with hyperglycemia E11.65 Active 110016940 Problem EMIR (obstructive sleep apnea) G47.33 Active 33999852 ALLERGIES No Information ENCOUNTERS Encounter Location Date Diagnosis [facility] [address] [facility] [id number] [address] [place] [id number] March, [facility] [address] [facility] [id number] [address] [place] [phone] Jan, Foot callus L84 [facility] [address] [facility] [id number] [address] [place] [id number] 07 Dec, 2019 Moderate episode of recurren t major depressive disorder F33.1 [facility] [place] [address] [id number] [address] [place] [id number] 04 Dec, 2019 Moderate episode of recurren t major depressive disorder F33.1 [facility] [address] [id number] [address] [place] [id number] 04 Dec, 2019 Moderate episode of recurren t major depressive disorder F33.1 [facility] [place] [address] [id number] [address] [place] [id number] 16 Nov, 2019 Panlobular emphysema J43.1 ; Mood disorder F39 and Controlled type 2 diabetes mellitus without complication, without long-term current use of insulin E11.9 [facility] [place] [address] [id number] [address] [place] [id number] Nov, [facility] [address] [facility] [id number] [address] [place] [phone] Nov, Increased sputum production R09.3 and EMIR (obstructive sleep apnea) G47.33 [facility] [place] [address] [id number] [address] [place] [id number] Oct, [facility] [address] [id number] [address] [place] [id number] Sep, [facility] [address] [id number] [address] [place] [id number] Sep, [facility] [address] [id number] [address] [place] [phone] Sep, [facility] [address] [id number] [address] [place] [id number] Aug, Moderate episode of recurren t major depressive disorder F33.1 [facility] [address] [id number] [address] [place] [id number] Aug, Moderate episode of recurren t major depressive disorder F33.1 [facility] [address] [id number] [address] [place] [id number] Aug, Moderate episode of recurren t major depressive disorder F33.1 [facility] [place] [address] [id number] [address] [place] [phone] Jul, [facility] [address] [id number] [address] [place] [id number] Jul, Foot callus L84 ; Uncontroll ed type 2 diabetes mellitus with hyperglycemia E11.65 ; Arthritis M19.90 ; Encounter for immunization Z23 ; Rib pain on right side R07.81 and Lumbar pain M54.5 [facility] [address] [id number] [address] [place] [id number] Jul, [facility] [address] [id number] [address] [place] [phone] Jun, [facility] [address] [id number] [address] [place] [id number] Jun, [facility] [address] [id number] [address] [place] [phone] Jun, Callus of foot L84 [facility] [address] [id number] [address] [place] [id number] Jun, [facility] [address] [id number] [address] [place] [id number] Apr, Exercise counseling Z71.82 [facility] [address] [id number] [address] [place] [phone] March, Moderate episode of recurren t major depressive disorder F33.1 [facility] [address] [id number] [address] [place] [phone] March, Moderate episode of recurren t major depressive disorder F33.1 [facility] [address] [id number] [address] [place] [id number] March, Exercise counseling Z71.82 [facility] [address] [id number] [address] [place] [id number] March, [facility] [address] [id number] [address] [place] [phone] March, Exercise counseling Z71.82 [facility] [address] [id number] [address] [place] [id number] March, Right otitis media with effu yousuf H65.91 ; 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 and Diabetes type 2, controlled E11.9 [facility] [address] [facility] [id number] [address] [place] [id number] March, Moderate episode of recurren t major depressive disorder F33.1 [facility] [address] [id number] [address] [place] [id number] March, Exercise counseling Z71.82 [facility] [address] [facility] [id number] [address] [place] [id number] March, Exercise counseling Z71.82 [facility] [address] [facility] [id number] [address] [place] [phone] March, Callus of foot L84 [facility] [address] [id number] [address] [place] [phone] Feb, Moderate episode of recurren t major depressive disorder F33.1 [facility] [address] [facility] [id number] [address] [place] [phone] Feb, [facility] [address] [facility] [id number] [address] [place] [phone] Feb, Moderate episode of recurren t major depressive disorder F33.1 [facility] [address] [facility] [id number] [address] [place] [id number] Feb, Diabetes type 2, controlled E11.9 and Essential hypertension I10 [facility] [address] [id number] [address] [place] [phone] Jan, [facility] [address] [facility] [id number] [address] [place] [phone] Jan, Callus of foot L84 [facility] [address] [facility] [id number] [address] [place] [id number] Jan, Moderate episode of recurren t major depressive disorder F33.1 [facility] [address] [id number] [address] [place] [phone] Jan, Moderate episode of recurren t major depressive disorder F33.1 [facility] [address] [facility] [id number] [address] [place] [phone] Dec, Moderate episode of recurren t major depressive disorder F33.1 [facility] [address] [facility] [id number] [address] [place] [phone] 11 Dec, 2018 Candidiasis of the esophagus B37.81 [facility] [address] [facility] [id number] [address] [place] [id number] 08 Dec, 2018 [facility] [address] [facility] [id number] [address] [place] [id number] 04 Dec, 2018 Fecal occult blood test posi tive R19.5 and Anemia, unspecified type D64.9 [facility] [address] [facility] [id number] [address] [place] [id number] Nov, Stool color black K92.1 [facility] [address] [facility] [id number] [address] [place] [phone] Nov, Stool color black K92.1 [facility] [address] [facility] [id number] [address] [place] [phone] Nov, Stool color black K92.1 [facility] [address] [facility] [id number] [address] [place] [phone] Nov, [facility] [address] [facility] [id number] [address] [place] [phone] Nov, Moderate episode of recurren t major depressive disorder F33.1 [facility] [address] [facility] [id number] [address] [place] [id number] Oct, Moderate episode of recurren t major depressive disorder F33.1 [facility] [address] [facility] [id number] [address] [place] [phone] Oct, Callus of foot L84 and Contr olled type 2 diabetes mellitus without complication, without long-term current use of insulin E11.9 [facility] [address] [id number] [address] [place] [phone] 10 Oct, 2018 Moderate episode of recurren t major depressive disorder F33.1 [facility] [place] [address] [id number] [address] [place] [phone] Aug, Mood disorder F39 [facility] [address] [id number] [address] [place] [phone] Aug, Encounter for immunization Z 23 [facility] [place] [address] [id number] [address] [place] [phone] Jul, Moderate episode of recurren t major depressive disorder F33.1 [facility] [place] [address] [id number] [address] [place] [id number] Jul, Moderate episode of recurren t major depressive disorder F33.1 [facility] [place] [address] [id number] [address] [place] [phone] May, [place] [address] [id number] [address] [place] [phone] May, Moderate episode of recurren t major depressive disorder F33.1 [facility] [place] [address] [id number] [address] [place] [phone] May, Moderate episode of recurren t major depressive disorder F33.1 [place] [address] [id number] [address] [place] [phone] Apr, Benign prostatic hyperplasia with lower urinary tract symptoms N40.1 and Hesitancy of micturition R39.11 [place] [address] [id number] [address] [place] [phone] Apr, Moderate episode of recurren t major depressive disorder F33.1 [place] [address] [id number] [address] [place] [id number] Apr, Unspecified mood [affective] disorder F39 and Primary insomnia F51.01 [facility] [address] [id number] [address] [place] [id number] Apr, Primary insomnia F51.01 [facility] [address] [id number] [address] [place] [id number] March, Foot callus L84 [facility] [address] [id number] [address] [place] [id number] Feb, Medicare annual wellness vis it, initial Z00.00 [facility] [address] [id number] [address] [place] [id number] Feb, Acute superficial venous thr ombosis of left lower extremity I82.812 [facility] [address] [id number] [address] [place] [phone] Feb, [facility] [address] [id number] [address] [place] [phone] Feb, [facility] [address] [id number] [address] [place] [id number] Feb, Acute superficial venous thr ombosis of left lower extremity I82.812 [facility] [address] [id number] [address] [place] [phone] Feb, [facility] [address] [id number] [address] [place] [phone] Feb, Other specified soft tissue disorders M79.89 and Pain in left leg M79.605 [facility] [address] [id number] [address] [place] [phone] Jan, Obstructive sleep apnea G47. 33 [facility] [address] [facility] [id number] [address] [place] [id number] Dec, Obstructive sleep apnea G47. 33 and Mood disorder F39 [facility] [address] [facility] [id number] [address] [place] [phone] Dec, [facility] [address] [facility] [id number] [address] [place] [phone] Dec, [facility] [address] [facility] [id number] [address] [place] [phone] Nov, Diabetes type 2, controlled E11.9 [facility] [address] [facility] [id number] [address] [place] [phone] Nov, Encounter for immunization Z 23 [facility] [address] [facility] [id number] [address] [place] [phone] Nov, Primary insomnia F51.01 [facility] [address] [facility] [id number] [address] [place] [id number] 07 Oct, 2017 Medicare annual wellness vis it, subsequent Z00.00 and Mood disorder F39 [facility] [address] [facility] [id number] [address] [place] [phone] Sep, Mood disorder F39 [facility] [address] [place] [id number] [address] [place] [phone] Aug, Primary insomnia F51.01 and Urinary hesitancy R39.11 [facility] [address] [facility] [id number] [address] [place] [id number] Aug, Primary insomnia F51.01 [facility] [address] [facility] [id number] [address] [place] [id number] Jul, Diabetes type 2, controlled E11.9 ; Primary insomnia F51.01 and Mood disorder F39 [facility] [address] [id number] [id number] Jun, Mood disorder F39 [facility] [address] [id number] Monika ALCOCER S [id number] Jun, [facility] [address] [facility] [id number] [address] [place] [phone] May, Nightmares F51.5 [facility] [address] [facility] [id number] [address] [place] [phone] May, Cognitive complaints R41.9 ; Unspecified mood [affective] disorder F39 and Primary insomnia F51.01 [facility] [address] [id number] [address] [place] [id number] Apr, Mood disorder F39 and Primar y insomnia F51.01 [facility] [address] [id number] [address] [place] [phone] Apr, Cognitive complaints R41.9 a nd Unspecified mood [affective] disorder F39 [facility] [address] [id number] [address] [place] [phone] Apr, Cognitive complaints R41.9 a nd Unspecified mood [affective] disorder F39 [facility] [place] [address] [id number] [address] [place] [phone] March, [facility] [address] [id number] [address] [place] [id number] March, Diabetes type 2, controlled E11.9 and Essential hypertension I10 [facility] [address] [id number] [address] [place] [id number] March, Primary insomnia F51.01 ; Di abetes type 2, controlled E11.9 and Pain in right shoulder M25.511 [facility] [address] [id number] [address] [place] [id number] March, Cognitive complaints R41.9 a nd Unspecified mood [affective] disorder F39 [facility] [address] [id number] [address] [place] [phone] Feb, Other specified mental disor ders due to known physiological condition F06.8 [facility] [address] [id number] [address] [place] [phone] Jan, [facility] [address] [id number] [address] [place] [phone] Jan, [facility] [address] [id number] [address] [place] [id number] Dec, Diabetes type 2, controlled E11.9 ; Hypertension, benign I10 and Mood disorder F39 [facility] [address] [id number] [address] [place] [id number] 08 Dec, 2016 Medicare annual wellness vis it, initial Z00.00 [facility] [address] [id number] [address] [place] [phone] 05 Nov, 2016 Medicare welcome exam Z00.00 ; Encounter for immunization Z23 ; Medicare annual wellness visit, initial Z00.00 and Medicare annual wellness visit, subsequent Z00.00 [facility] [address] [id number] [address] [place] [phone] Oct, [facility] [address] [id number] [address] [place] [phone] Sep, [facility] [address] [facility] [id number] [address] [place] [phone] Aug, Encounter for immunization Z 23 and Callus L84 [facility] [address] [id number] [address] [place] [phone] Aug, [facility] [address] [id number] [address] [place] [id number] Jul, Diabetes type 2, controlled E11.9 [facility] [place] [address] [id number] [address] [place] [id number] Jul, Diabetes type 2, controlled E11.9 [facility] [place] [address] [id number] [address] [place] [id number] Jun, [facility] [place] [address] [id number] [address] [place] [id number] Jun, Hypertension, benign I10 ; M ood disorder F39 and Diabetes type 2, controlled E11.9 [facility] [place] [address] [id number] [address] [place] [id number] Jun, Mood disorder F39 [facility] [place] [address] [facility] [place] [id number] [address] [place] [phone] May, [facility] [place] [address] [id number] [address] [place] [id number] May, Mood disorder F39 [facility] [place] [address] [id number] [address] [place] [id number] May, Mood disorder F39 [facility] [place] [address] [id number] [address] [place] [phone] Apr, Controlled type 2 diabetes m ellitus without complication, without long-term current use of insulin E11.9 ; Essential hypertension I10 and Pain in right shoulder M25.511 [facility] [place] [address] [id number] [address] [place] [id number] Apr, Mood disorder F39 [facility] [place] [address] [id number] [address] [place] [id number] Apr, Pre-op evaluation Z01.818 [facility] [place] [address] [id number] [address] [place] [id number] March, Mood disorder F39 [facility] [address] [id number] [address] [place] [id number] Feb, [facility] [address] [id number] [address] [place] [address] Feb, Shoulder pain, right M25.511 [facility] [address] [id number] [address] [place] [address] Feb, Shoulder pain, right M25.511 [facility] [address] [id number] [address] [place] [address] Feb, Shoulder pain, right M25.511 [facility] [address] [id number] [address] [place] [address] Feb, Shoulder pain, right M25.511 [facility] [address] [id number] [address] [place] [address] Jan, Shoulder pain, right M25.511 [facility] [address] [id number] [address] [place] [address] Jan, Shoulder pain, right M25.511 [place] [address] [facility] [id number] [address] [place] [address] Jan, [facility] [address] [place] [id number] [address] [place] [id number] Jan, Diabetes type 2, controlled E11.9 [place] [address] [facility] [id number] [address] [place] [address] Jan, Shoulder pain, right M25.511 ; Diabetes mellitus without mention of complication, type II or unspecified type, not stated as uncontrolled 250.00 and Diabetes type 2, controlled E11.9 [place] [address] [facility] [id number] [address] [place] [phone] Jan, [place] [address] [place] [id number] [place] [address] Jan, [place] [address] [place] [id number] [place] [address] Dec, [place] [address] [place] [id number] [address] [place] [address] Oct, Callus of foot L84 [place] [address] [place] [id number] [address] [place] [address] Oct, Anxiety F41.9 ; Callus of fo ot L84 and Dysuria R30.0 [place] [address] [place] [id number] [address] [place] [address] Sep, Diabetes mellitus without me ntion of complication, type II or unspecified type, not stated as uncontrolled 250.00 [place] [address] [place] [id number] [address] [place] [id number] Aug, Diabetes mellitus without me ntion of complication, type II or unspecified type, not stated as uncontrolled 250.00 [place] [address] [place] [id number] [address] [place] [address] Jul, [place] [address] [place] [id number] [place] [id number] Jul, [facility] [address] [id number] [address] [place] [address] Jul, Diabetes mellitus without me ntion of complication, type II or unspecified type, not stated as uncontrolled 250.00 ; Essential hypertension, benign 401.1 and Anxiety state, unspecified 300.00 [facility] [address] [id number] [address] [place] [phone] Jul, [facility] [place] [address] [id number] [address] [place] [id number] Jun, [facility] [address] [id number] [address] [place] [phone] Jun, [facility] [address] [id number] [address] [place] [phone] May, [facility] [address] [id number] [address] [place] [id number] May, [facility] [address] [id number] [address] [place] [id number] Apr, [facility] [address] [id number] [address] [place] [id number] Apr, Mood disorder 296.90 [facility] [address] [id number] [address] [place] [id number] March, [facility] [address] [id number] [address] [place] [phone] Feb, [facility] [place] [address] [id number] [address] [place] [phone] Feb, [facility] [place] [address] [id number] [address] [place] [phone] Jan, [facility] [address] [id number] [address] [place] [phone] Jan, [facility] [address] [id number] [address] [place] [phone] Jan, [facility] [address] [id number] [address] [place] [address], [place] [address] Jan, [facility] [address] [id number] [address] [place] [address], [place] [address] Jan, [facility] [address] [id number] [address] [place] [address], [place] [address] Jan, [facility] [address] [id number] [address] [place] [address], [place] [address] Jan, [facility] [address] [id number] [address] [place] [address], [place] [address] Jan, [facility] [address] [id number] [address] [place] [address], [place] [address] Dec, [facility] [address] [id number] [address] [place] [address], [place] [address] Dec, [facility] [address] [id number] [address] [place] [address], [place] [address] Nov, [facility] [address] [id number] [address] [place] [address], [place] [address] Nov, [facility] [address] [id number] [address] [place] [address], [place] [address] Nov, [facility] [address] [id number] [address] [place] [address], [place] [address] Nov, [facility] [address] [id number] [address] [place] [address], [place] [address] Oct, [facility] [address] [id number] [address] [place] [address], [place] [address] Oct, [facility] [address] [id number] [address] [place] [address], [place] [address] Oct, [facility] [address] [id number] [address] [place] [address], [place] [address] Oct, [facility] [address] [id number] [address] [place] [address], [place] [address] 24 Oct, 2014 [facility] [place] [facility] [address] [id number] [address] [place] [address], [place] [address] 24 Oct, 2014 [facility] [place] [facility] [address] [id number] [address] [place] [address], [place] [address] 17 Oct, 2014 [facility] [place] [facility] [address] [id number] [address] [place] [address], [place] [address] 17 Oct, 2014 [facility] [place] [facility] [address] [id number] [address] [place] [address], [place] [address] 15 Oct, 2014 [facility] [place] [facility] [address] [id number] [address] [place] [address], [place] [address] 15 Oct, 2014 [facility] [place] [facility] [address] [id number] [address] [place] [address], [place] [address] 19 Sep, 2014 [facility] [place] [facility] [address] [id number] [address] [place] [address], [place] [address] 19 Sep, 2014 [facility] [place] [facility] [address] [id number] [address] [place] [address], [place] [address] 18 Sep, 2014 [facility] [place] [facility] [address] [id number] [address] [place] [address], [place] [address] 18 Sep, 2014 [facility] [place] [facility] [address] [id number] [address] [place] [address], [place] [address] 18 Sep, 2014 [facility] [place] [facility] [address] [id number] [address] [place] [address], [place] [address] 18 Sep, 2014 [facility] [place] [facility] [address] [id number] [address] [place] [address], [place] [address] 16 Aug, 2014 [facility] [place] [facility] [address] [id number] [address] [place] [address], [place] [address] 16 Aug, 2014 [facility] [place] [facility] [address] [id number] [address] [place] [address], [place] [address] 19 Jul, 2014 [facility] [place] [facility] [address] [id number] [address] [place] [address], [place] [address] Jul, [facility] [address] [id number] [facility] [place] [address] Jun, [facility] [place] [address] [id number] [address] [place] [address], [place] [address] Jun, [facility] [address] [id number] [facility] [place] [address] May, [facility] [place] [facility] [address] [id number] [address] [place] [address], [place] [address] May, [facility] [address] [id number] [address] [place] [address], [place] [address] Apr, [facility] [address] [id number] [address] [place] [address], [place] [address] Apr, [facility] [address] [id number] [address] [place] [address], [place] [address] Apr, [facility] [place] [address] [id number] [address] [place] [address], [place] [address] Apr, [facility] [address] [id number] [address] [place] [address], [place] [address] March, [facility] [address] [id number] [address] [place] [address], [place] [address] March, [facility] [address] [id number] [address] [place] [address], [place] [address] Jan, [facility] [address] [id number] [address] [place] [address], [place] [address] Jan, [facility] [address] [id number] [address] [place] [address], [place] [address] Jan, [facility] [place] [facility] [address] [id number] [address] [place] [address], [place] [address] Jan, [facility] [place] [facility] [address] [id number] [address] [place] [address], [place] [address] Jan, [facility] [place] [facility] [address] [id number] [address] [place] [address] Jan, [facility] [address] [id number] [address] [place] [address], [place] [address] Dec, [facility] [address] [id number] [address] [place] [address], [place] [address] Dec, [facility] [address] [id number] [address] [place] [address], [place] [address] Oct, [facility] [address] [id number] [address] [place] [address], [place] [address] Oct, [facility] [address] [id number] [address] [place] [address], [place] [address] Oct, [facility] [address] [id number] [address] [place] [address], [place] [address] Oct, [facility] [address] [id number] [address] [place] [address], [place] [address] Jul, [facility] [address] [id number] [address] [place] [address], [place] [address] Jul, [facility] [address] [id number] [address] [place] [address], [place] [address] Jul, [facility] [address] [id number] [address] [place] [address], [place] [address] Jun, [facility] [address] [id number] [address] [place] [address], [place] [address] Jun, [facility] [address] [id number] [address] [place] [address], [place] [address] May, [facility] [address] [id number] [address] [place] [address], [place] [address] May, [facility] [address] [id number] [address] [place] [address], [place] [address] March, [facility] [address] [id number] [address] [place] [address], [place] [address] March, [facility] [address] [id number] [address] [place] [address], [place] [address] Feb, [facility] [address] [id number] [address] [place] [address], [place] [address] Feb, [facility] [address] [id number] [address] [place] [address], [place] [address] Jan, [facility] [address] [id number] [address] [place] [address], [place] [address] Dec, [facility] [address] [id number] [address] [place] [address], [place] [address] Dec, [facility] [address] [id number] [address] [place] [address], [place] [address] Dec, [facility] [address] [id number] [address] [place] [address], [place] [address] Dec, [facility] [address] [id number] [address] [place] [address] Dec, [facility] [address] [id number] [address] [place] [address] Nov, [facility] [address] [id number] [address] [place] [address] Oct, [facility] [address] [id number] [address] [place] [address] Oct, [facility] [address] [id number] [address] [place] [phone] Aug, [facility] [address] [id number] [address] [place] [address], [place] [address] Aug, [facility] [address] [id number] [address] [place] [address] Aug, [facility] [address] [id number] [address] [place] [address] Aug, [facility] [address] [id number] [address] [place] [address], [place] [address] 02 Aug, 2012 [facility] [address] [id number] [address] [place] [address], [place] [address] Jul, [facility] [address] [id number] [address] [place] [address], [place] [address] Jul, [facility] [address] [id number] [address] [place] [address], [place] [address] Jun, [facility] [address] [id number] [address] [place] [address], [place] [address] Jun, [facility] [address] [id number] [address] [place] [address], [place] [address] 30 May, 2012 [facility] [address] [id number] [address] [place] [address], [place] [address] May, [facility] [address] [id number] [address] [place] [address], [place] [address] May, [facility] [address] [id number] [address] [place] [address], [place] [address] Apr, [facility] [address] [id number] [address] [place] [address], [place] [address] Apr, [facility] [address] [id number] [address] [place] [address], [place] [address] March, [facility] [address] [id number] [address] [place] [address], [place] [address] March, [facility] [address] [id number] [address] [place] [address] 18 Feb, 2012 [facility] [address] [id number] [address] [place] [address], [place] [address] 17 Feb, 2012 [facility] [address] [id number] [address] [place] [address], [place] [address] Feb, [facility] [address] [id number] [address] [place] [address] Feb, IMMUNIZATIONS No Known Immunizations SOCIAL HISTORY [...]
--- OUTSIDE RECORDS SUMMARY | 2020-06-17 08:43 | XMS REPORT ---
Author Author Barrie BUSTILLO Organization [facility] Address [address] [place] [address] Care Team Providers Care Shake Backboard Notcher Name Role Phone BARRIE BUSTILLO Unavailable PROBLEMS Type Condition ICD9-CM Code MMG73-EX Code Onset Dates Condition S tatus SNOMED Code Problem Diabetes type 2, controlled E11.9 Ac tive 09324542 Problem Essential hypertension I10 Active 36329410 Problem Primary insomnia F51.01 Active 397 2004 Problem Obstructive sleep apnea G47.33 Active 27838202 Problem Urinary hesitancy R39.11 Active 59 17768 Problem Hesitancy of micturition R39.11 Activ e 8187657 Problem Benign prostatic hyperplasia with lower urinary tract symptoms N40.1 Active 567969328 Problem Controlled type 2 diabetes m ellitus without complication, without long- term current use of insulin E11.9 Active 156023424 Problem Mood disorder F39 Active 711587 05 Problem Acute superficial venous thrombosis of left lower extremit y I82.812 Active 60245871577645189 Problem Panlobular emphysema J43.1 Active 7199510 Problem 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.1 Active 907424790 Problem 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 Acti ve 40578705 Problem Arthritis M19.90 Active 8222536 Problem Uncontrolled type 2 diabetes mellitus with hyperglycemia E11.65 Active 098639471 Problem EMIR (obstructive sleep apnea) G47.33 Active 94787007 ALLERGIES No Information ENCOUNTERS Encounter Location Date Diagnosis [facility] [address] [id number] [place] [address] March, [facility] [address] [id number] [place] [address] 07 Dec, 2019 Moderate episode of recurrent major depr essive disorder F33.1 [facility] [address] [facility] [place] [address] 04 Dec, 2019 Moderate episode of recurrent major depr essive disorder F33.1 [facility] [address] [address] Dec, Moderate episode of recurrent major depr essive disorder F33.1 [facility] [address] [address] Nov, Panlobular emphysema J43.1 ; Mood disord er F39 and Controlled type 2 diabetes mellitus without complication, without long-term current use of insulin E11.9 [facility] [address] [address] Nov, [facility] [place] [address] [address] Nov, Increased sputum production R09.3 and OS A (obstructive sleep apnea) G47.33 [facility] [address] [address] Oct, [facility] [address] [address] Sep, [facility] [address] [address] Sep, [facility] [place] [address] [address] Sep, [facility] [place] [address] [address] Aug, Moderate episode of recurrent major depr essive disorder F33.1 [facility] [place] [address] [address] Aug, Moderate episode of recurrent major depr essive disorder F33.1 [facility] [place] [address] [address] Aug, Moderate episode of recurrent major depr essive disorder F33.1 [facility] [address] [address] Jul, [facility] [address] [address] Jul, Foot callus L84 ; Uncontrolled type 2 di abetes mellitus with hyperglycemia E11.65 ; Arthritis M19.90 ; Encounter for immunization Z23 ; Rib pain on right side R07.81 and Lumbar pain M54.5 [facility] [place] [address] [address] Jul, [facility] [address] [address] Jun, [facility] [address] [address] Jun, [facility] [address] [address] Jun, Callus of foot L84 [facility] [address] [address] Jun, [facility] [place] [address] [address] Apr, Exercise counseling Z71.82 [facility] [address] [address] March, Moderate episode of recurrent major depr essive disorder F33.1 [facility] [address] [address] March, Moderate episode of recurrent major depr essive disorder F33.1 [facility] [address] [address] March, Exercise counseling Z71.82 [facility] [place] [address] [address] March, [facility] [address] [address] March, Exercise counseling Z71.82 [facility] [place] [address] [address] March, Right otitis media with effusion H65.91 ; 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 and Diabetes type 2, controlled E11.9 [facility] [address] [address] March, Moderate episode of recurrent major depr essive disorder F33.1 [facility] [place] [address] [address] March, Exercise counseling Z71.82 [facility] [place] [address] [address] March, Exercise counseling Z71.82 [facility] [place] [address] [address] March, Callus of foot L84 [facility] [place] [address] [address] Feb, Moderate episode of recurrent major depr essive disorder F33.1 [facility] [place] [address] [address] Feb, [facility] [place] [address] [address] Feb, Moderate episode of recurrent major depr essive disorder F33.1 [facility] [place] [address] [address] Feb, Diabetes type 2, controlled E11.9 and Es sential hypertension I10 [facility] [place] [address] [address] Jan, [facility] [place] [address] [address] Jan, Callus of foot L84 [facility] [place] [address] [address] Jan, Moderate episode of recurrent major depr essive disorder F33.1 [facility] [place] [address] [address] Jan, Moderate episode of recurrent major depr essive disorder F33.1 [facility] [address] [address] Dec, Moderate episode of recurrent major depr essive disorder F33.1 [facility] [address] [address] 11 Dec, 2018 Candidiasis of the esophagus B37.81 [facility] [address] [address] 08 Dec, 2018 [facility] [address] [facility] [id number] [place] [address] 04 Dec, 2018 Fecal occult blood test posi tive R19.5 and Anemia, unspecified type D64.9 [facility] [address] [address] Nov, Stool color black K92.1 [facility] [place] [address] [address] Nov, Stool color black K92.1 [facility] [place] [address] [address] Nov, Stool color black K92.1 [facility] [place] [address] [address] Nov, [facility] [place] [address] [address] Nov, Moderate episode of recurrent major depr essive disorder F33.1 [facility] [place] [address] [address] Oct, Moderate episode of recurrent major depr essive disorder F33.1 [facility] [place] [address] [address] 18 Oct, 2018 Callus of foot L84 and Controlled type 2 diabetes mellitus without complication, without long-term current use of insulin E11.9 [facility] [place] [address] [address] 10 Oct, 2018 Moderate episode of recurrent major depr essive disorder F33.1 [facility] [place] [address] [address] 17 Aug, 2018 Mood disorder F39 [facility] [place] [address] [address] 05 Aug, 2018 Encounter for immunization Z23 [facility] [place] [address] [address] Jul, Moderate episode of recurrent major depr essive disorder F33.1 [facility] [place] [address] [address] Jul, Moderate episode of recurrent major depr essive disorder F33.1 [facility] [address] [address] May, [facility] [address] [address] May, Moderate episode of recurrent major depr essive disorder F33.1 [facility] [place] [address] [address] May, Moderate episode of recurrent major depr essive disorder F33.1 [facility] [place] [address] [address] Apr, Benign prostatic hyperplasia with lower urinary tract symptoms N40.1 and Hesitancy of micturition R39.11 [facility] [place] [address] [address] Apr, Moderate episode of recurrent major depr essive disorder F33.1 [facility] [address] [address] Apr, Unspecified mood [affective] disorder F3 9 and Primary insomnia F51.01 [facility] [address] [address] Apr, Primary insomnia F51.01 [facility] [address] [address] March, Foot callus L84 [facility] [address] [address] Feb, Medicare annual wellness visit, initial Z00.00 [facility] [address] [address] Feb, Acute superficial venous thrombosis of l eft lower extremity I82.812 [facility] [address] [address] Feb, [facility] [address] [address] Feb, [facility] [address] [address] Feb, Acute superficial venous thrombosis of l eft lower extremity I82.812 [facility] [address] [address] Feb, [facility] [address] [facility] [id number] [address] [place] [address] Feb, Other specified soft tissue disorders M79.89 and Pain in left leg M79.605 [facility] [place] [address] [address] Jan, Obstructive sleep apnea G47.33 [facility] [place] [address] [address] Dec, Obstructive sleep apnea G47.33 and Mood disorder F39 [facility] [place] [address] [address] Dec, [facility] [address] [address] Dec, [facility] [place] [address] [address] Nov, Diabetes type 2, controlled E11.9 [facility] [place] [address] [address] Nov, Encounter for immunization Z23 [facility] [address] [address] Nov, Primary insomnia F51.01 [facility] [place] [address] [address] Oct, Medicare annual wellness visit, subseque nt Z00.00 and Mood disorder F39 [facility] [address] [place] [id number] [place] [address] Sep, Mood disorder F39 [facility] [address] [address] Aug, Primary insomnia F51.01 and Urinary hesi tancy R39.11 [facility] [address] [address] Aug, Primary insomnia F51.01 [facility] [address] [address] 07 Jul, 2017 Diabetes type 2, controlled E11.9 ; Prim ju insomnia F51.01 [address] Mood disorder F39 [facility] [address] [id number] [id number] Jun, Mood disorder F39 [facility] [address] [facility] [place] [id number] Jun, [facility] [place] [address] [address] May, Nightmares F51.5 [facility] [address] [address] May, Cognitive complaints R41.9 ; Unspecified mood [affective] disorder F39 and Primary insomnia F51.01 [facility] [address] [address] Apr, Mood disorder F39 and Primary insomnia F 51.01 [facility] [address] [address] Apr, Cognitive complaints R41.9 and Unspecifi ed mood [affective] disorder F39 [facility] [address] [address] Apr, Cognitive complaints R41.9 and Unspecifi ed mood [affective] disorder F39 [facility] [address] [address] March, [facility] [address] [address] March, Diabetes type 2, controlled E11.9 and Es sential hypertension I10 [facility] [address] [address] March, Primary insomnia F51.01 ; Diabetes type 2, controlled E11.9 and Pain in right shoulder M25.511 [facility] [address] [address] March, Cognitive complaints R41.9 and Unspecifi ed mood [affective] disorder F39 [facility] [address] [address] Feb, 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 [facility] [place] [address] [address] Jan, [facility] [place] [address] [address] Jan, [facility] [address] [address] Dec, Diabetes type 2, controlled E11.9 ; Hype rtension, benign I10 and Mood disorder F39 [facility] [place] [address] [address] 08 Dec, 2016 Medicare annual wellness visit, initial Z00.[address] [address] Nov, Medicare welcome exam Z00.00 ; Encounter for immunization Z23 ; Medicare annual wellness visit, initial Z00.00 and Medicare annual wellness visit, subsequent Z00.00 [facility] [address] [address] Oct, [facility] [place] [address] [address] Sep, [facility] [place] [address] [address] Aug, Encounter for immunization Z23 and Callu s L84 [facility] [address] [facility] [place] [address] 07 Aug, 2016 [facility] [address] [id number] [place] [address] Jul, Diabetes type 2, controlled E11.9 [facility] [address] [facility] [place] [address] Jul, Diabetes type 2, controlled E11.9 [facility] [address] [place] [id number] [place] [address] Jun, [facility] [address] [place] [id number] [place] [address] Jun, Hypertension, benign I10 ; Mood disorder F39 and Diabetes type 2, controlled E11.9 [facility] [address] [place] [id number] [place] [address] Jun, Mood disorder F39 [facility] [address] [address] May, [facility] [address] [place] [id number] [place] [address] May, Mood disorder F39 [facility] [address] [address] May, Mood disorder F39 [facility] [address] [place] [id number] [place] [address] Apr, Controlled type 2 diabetes mellitus with out complication, without long-term current use of insulin E11.9 ; Essential hypertension I10 and Pain in right shoulder M25.511 [facility] [address] [id number] [place] [address] Apr, Mood disorder F39 [facility] [address] [place] [id number] [place] [address] Apr, Pre-op evaluation Z01.818 [facility] [address] [place] [id number] [place] [address] March, Mood disorder F39 [facility] [address] [address] Feb, [facility] [address] [address] Feb, Shoulder pain, right M25.511 [facility] [address] [address] Feb, Shoulder pain, right M25.511 [facility] [address] [address] Feb, Shoulder pain, right M25.511 [facility] [address] [address] Feb, Shoulder pain, right M25.511 [facility] [address] [address] Jan, Shoulder pain, right M25.511 [facility] [address] [address] Jan, Shoulder pain, right M25.511 [facility] [address] [address] Jan, [facility] [address] [address] 14 Jan, 2016 Diabetes type 2, controlled E11.9 [place] [address] [address] Jan, Shoulder pain, right M25.511 ; Diabetes mellitus without mention of complication, type II or unspecified type, not stated as uncontrolled 250.00 and Diabetes type 2, controlled E11.9 [facility] [address] [address] Jan, [facility] [address] [address] Jan, [facility] [address] [address] Dec, [place] [address] [address] Oct, Callus of foot L84 [facility] [address] [address] Oct, Anxiety F41.9 ; Callus of foot L84 and D ysuria R30.0 [facility] [address] [address] Sep, Diabetes mellitus without mention of com plication, type II or unspecified type, not stated as uncontrolled 250.00 [facility] [address] [address] Aug, Diabetes mellitus without mention of com plication, type II or unspecified type, not stated as uncontrolled 250.00 [facility] [address] [address] Jul, [facility] [address] [address] Jul, [facility] [address] [address] Jul, Diabetes mellitus without mention of com plication, type II or unspecified type, not stated as uncontrolled 250.00 ; Essential hypertension, benign 401.1 and Anxiety state, unspecified 300.00 [facility] [address] [address] Jul, [facility] [address] [address] Jun, [facility] [address] [address] Jun, [facility] [address] [address] May, [facility] [address] [address] May, [facility] [address] [address] Apr, [facility] [address] [address] Apr, Mood disorder 296.90 [facility] [address] [id number] [place] [address] March, [facility] [address] [id number] [place] [address] Feb, [facility] [address] [id number] [place] [address] Feb, [facility] [address] [id number] [place] [address] Jan, [facility] [address] [id number] [place] [address] Jan, [facility] [address] [id number] [place] [address] Jan, [facility] [address] [id number] [place] [address] Jan, [facility] [address] [id number] [place] [address] Jan, [facility] [address] [id number] [place] [address] Jan, [facility] [address] [id number] [place] [address] Jan, [facility] [address] [id number] [place] [address] Jan, [facility] [address] [id number] [place] [address] Dec, [facility] [address] [id number] [place] [address] Dec, [facility] [address] [id number] [place] [address] Nov, [facility] [address] [id number] [place] [address] Nov, [facility] [address] [id number] [place] [address] Nov, [facility] [address] [id number] [place] [address] Nov, [facility] [address] [id number] [place] [address] Oct, [facility] [address] [id number] [place] [address] Oct, [facility] [address] [id number] [place] [address] Oct, [facility] [address] [id number] [place] [address] Oct, [facility] [address] [id number] [place] [address] Oct, [facility] [address] [id number] [place] [address] Oct, [facility] [address] [id number] [place] [address] Oct, [facility] [address] [id number] [place] [address] Oct, [facility] [address] [id number] [place] [address] Oct, [facility] [address] [id number] [place] [address] Oct, [facility] [address] [id number] [place] [address] Sep, [facility] [address] [id number] [place] [address] Sep, [facility] [address] [id number] [place] [address] Sep, [facility] [address] [id number] [place] [address] Sep, [facility] [address] [id number] [place] [address] Sep, [facility] [address] [id number] [place] [address] Sep, [facility] [address] [facility] [id number] [place] [address] Aug, [facility] [address] [id number] [place] [address] Aug, [facility] [address] [id number] [place] [address] Jul, [facility] [address] [id number] [place] [address] Jul, [facility] [address] [id number] [place] [address] Jun, [facility] [address] [id number] [place] [address] Jun, [facility] [address] [id number] [place] [address] May, [facility] [address] [id number] [place] [address] May, [facility] [address] [id number] [place] [address] Apr, [facility] [address] [id number] [place] [address] Apr, [facility] [address] [id number] [place] [address] Apr, [facility] [address] [id number] [place] [address] Apr, [facility] [address] [id number] [place] [address] March, [facility] [address] [id number] [place] [address] March, [facility] [address] [id number] [place] [address] Jan, [facility] [address] [id number] [place] [address] Jan, [facility] [address] [id number] [place] [address] Jan, [facility] [address] [id number] [place] [address] Jan, [facility] [address] [id number] [place] [address] Jan, [facility] [address] [id number] [place] [address] Jan, [facility] [address] [id number] [place] [address] Dec, [facility] [address] [id number] [place] [address] Dec, [facility] [address] [id number] [place] [address] Oct, [facility] [address] [id number] [place] [address] Oct, [facility] [address] [id number] [place] [address] Oct, [facility] [address] [id number] [place] [address] Oct, [facility] [address] [id number] [place] [address] Jul, [facility] [address] [id number] [place] [address] Jul, [facility] [address] [id number] [place] [address] Jul, [facility] [address] [id number] [place] [address] Jun, [facility] [address] [id number] [place] [address] Jun, [facility] [address] [id number] [place] [address] May, [facility] [address] [id number] [place] [address] May, [facility] [address] [id number] [place] [address] March, [facility] [address] [id number] [place] [address] March, [facility] [address] [id number] [place] [address] Feb, [facility] [address] [id number] [place] [address] Feb, [facility] [address] [id number] [place] [address] Jan, [facility] [address] [id number] [place] [address] Dec, [facility] [address] [id number] [place] [address] Dec, [facility] [id number] [place] [address] Dec, [facility] [id number] [place] [address] Dec, [facility] [address] [id number] [place] [address] Dec, [facility] [address] [id number] [place] [address] Nov, [facility] [address] [id number] [place] [address] Oct, [facility] [address] [id number] [place] [address] Oct, [facility] [address] [id number] [place] [address] Aug, [facility] [id number] [place] [address] Aug, [facility] [address] [id number] [place] [address] Aug, [facility] [id number] [place] [address] Aug, [facility] [address] [id number] [place] [address] Aug, [facility] [address] [id number] [place] [address] Jul, [facility] [address] [id number] [place] [address] Jul, [facility] [id number] [place] [address] Jun, [facility] [address] [id number] [place] [address] Jun, [facility] [address] [id number] [place] [address] May, [facility] [id number] [place] [address] May, [facility] [id number] [place] [address] May, [facility] [id number] [place] [address] Apr, [facility] [id number] [place] [address] Apr, [facility] [id number] [place] [address] March, [facility] [id number] [place] [address] March, [facility] [id number] [place] [address] Feb, [facility] [id number] [place] [address] Feb, [facility] [id number] [place] [address] Feb, [facility] [id number] [place] [address] Feb, IMMUNIZATIONS No Known Immunizations SOCIAL HISTORY [...]
--- OUTSIDE RECORDS SUMMARY | 2020-06-17 08:43 | XMS REPORT ---
Author Author Barrie SIMMONS Organization [facility] Address [address] [place] [address] Care Team Providers Care Pourer Crane Ladle Name Role Phone JOYCE SIMMONS Unavailable PROBLEMS Type Condition ICD9-CM Code OUM94-SR Code Onset Dates Condition S tatus SNOMED Code Problem Diabetes type 2, controlled E11.9 Ac tive 89258624 Problem Essential hypertension I10 Active 66233733 Problem Primary insomnia F51.01 Active 397 2004 Problem Obstructive sleep apnea G47.33 Active 45126764 Problem Urinary hesitancy R39.11 Active 59 33469 Problem Hesitancy of micturition R39.11 Activ e 4361989 Problem Benign prostatic hyperplasia with lower urinary tract symptoms N40.1 Active 684065555 Problem Controlled type 2 diabetes m ellitus without complication, without long- term current use of insulin E11.9 Active 902586313 Problem Mood disorder F39 Active 189052 05 Problem Acute superficial venous thrombosis of left lower extremit y I82.812 Active [id number] Problem Panlobular emphysema J43.1 Active 6701827 Problem 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.1 Active 866453727 Problem 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 Acti ve 02851082 Problem Arthritis M19.90 Active 2232127 Problem Uncontrolled type 2 diabetes mellitus with hyperglycemia E11.65 Active 986017974 Problem EMIR (obstructive sleep apnea) G47.33 Active 80249505 ALLERGIES No Information ENCOUNTERS Encounter Location Date Diagnosis [facility] [id number] [place] [address] March, [facility] [address] [address] 07 Dec, 2019 Moderate episode of recurrent major depr essive disorder F33.1 [facility] [id number] [place] [address] 04 Dec, 2019 Moderate episode of recurrent major depr essive disorder F33.1 [facility] [address] [address] Dec, Moderate episode of recurrent major depr essive disorder F33.1 [facility] [address] [address] 16 Nov, 2019 Panlobular emphysema J43.1 ; Mood disord er F39 and Controlled type 2 diabetes mellitus without complication, without long-term current use of insulin E11.9 [place] [address] [address] Nov, [place] [address] [address] Nov, Increased sputum production R09.3 and OS A (obstructive sleep apnea) G47.33 [place] [address] [address] Oct, [facility] [address] [address] Sep, [facility] [address] [address] Sep, [place] [address] [address] Sep, [place] [address] [address] Aug, Moderate episode of recurrent major depr essive disorder F33.1 [facility] [address] [address] Aug, Moderate episode of recurrent major depr essive disorder F33.1 [place] [address] [address] Aug, Moderate episode of recurrent major depr essive disorder F33.1 [facility] [address] [address] Jul, [facility] [address] [id number] Jul, Foot callus L84 ; Uncontrolled type 2 di abetes mellitus with hyperglycemia E11.65 ; Arthritis M19.90 ; Encounter for immunization Z23 ; Rib pain on right side R07.81 and Lumbar pain M54.5 [place] [address] [address] Jul, [place] [address] [address] Jun, [place] [address] [address] Jun, [place] [address] [address] Jun, Callus of foot L84 [place] [address] [address] Jun, [place] [address] [address] Apr, Exercise counseling Z71.82 [place] [address] [address] March, Moderate episode of recurrent major depr essive disorder F33.1 [place] [address] [address] March, Moderate episode of recurrent major depr essive disorder F33.1 [place] [address] [address] March, Exercise counseling Z71.82 [place] [address] [address] March, [place] [address] [address] March, Exercise counseling Z71.82 [place] [address] [address] March, Right otitis media with effusion H65.91 ; 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 and Diabetes type 2, controlled E11.9 [place] [address] [address] March, Moderate episode of recurrent major depr essive disorder F33.1 [place] [address] [address] March, Exercise counseling Z71.82 [place] [address] [address] March, Exercise counseling Z71.82 [place] [address] [address] March, Callus of foot L84 [place] [address] [address] Feb, Moderate episode of recurrent major depr essive disorder F33.1 [place] [address] [address] Feb, [place] [address] [address] Feb, Moderate episode of recurrent major depr essive disorder F33.1 [place] [address] [address] Feb, Diabetes type 2, controlled E11.9 and Es sential hypertension I10 [place] [address] [address] Jan, [place] [address] [address] Jan, Callus of foot L84 [place] [address] [address] Jan, Moderate episode of recurrent major depr essive disorder F33.1 [place] [address] [address] Jan, Moderate episode of recurrent major depr essive disorder F33.1 [place] [address] [address] Dec, Moderate episode of recurrent major depr essive disorder F33.1 [place] [address] [address] 11 Dec, 2018 Candidiasis of the esophagus B37.81 [place] [address] [address] 08 Dec, 2018 [facility] [address] [facility] [id number] [place] [address] 04 Dec, 2018 Fecal occult blood test posi tive R19.5 and Anemia, unspecified type D64.9 [place] [address] [address] Nov, Stool color black K92.1 [place] [address] [address] Nov, Stool color black K92.1 [place] [address] [address] Nov, Stool color black K92.1 [place] [address] [address] Nov, [place] [address] [address] Nov, Moderate episode of recurrent major depr essive disorder F33.1 [place] [address] [address] Oct, Moderate episode of recurrent major depr essive disorder F33.1 [place] [address] [address] 18 Oct, 2018 Callus of foot L84 and Controlled type 2 diabetes mellitus without complication, without long-term current use of insulin E11.9 [place] [address] [address] 10 Oct, 2018 Moderate episode of recurrent major depr essive disorder F33.1 [place] [address] [address] 17 Aug, 2018 Mood disorder F39 [place] [address] [address] 05 Aug, 2018 Encounter for immunization Z23 [place] [address] [address] Jul, Moderate episode of recurrent major depr essive disorder F33.1 [place] [address] [address] 24 Jul, 2018 Moderate episode of recurrent major depr essive disorder F33.1 [place] [address] [address] May, [place] [address] [address] May, Moderate episode of recurrent major depr essive disorder F33.1 [place] [address] [address] May, Moderate episode of recurrent major depr essive disorder F33.1 [place] [address] [address] Apr, Benign prostatic hyperplasia with lower urinary tract symptoms N40.1 and Hesitancy of micturition R39.11 [place] [address] [address] Apr, Moderate episode of recurrent major depr essive disorder F33.1 [place] [address] [address] Apr, Unspecified mood [affective] disorder F3 9 and Primary insomnia F51.01 [place] [address] [address] Apr, Primary insomnia F51.01 [place] [address] [address] March, Foot callus L84 [place] [address] [address] Feb, Medicare annual wellness visit, initial Z00.00 [place] [address] [address] Feb, Acute superficial venous thrombosis of l eft lower extremity I82.812 [facility] [address] [address] Feb, [facility] [address] [address] Feb, [facility] [address] [address] Feb, Acute superficial venous thrombosis of l eft lower extremity I82.812 [facility] [address] [address] Feb, [facility] [address] [facility] [id number] [address] [place] [address] Feb, Other specified soft tissue disorders M79.89 and Pain in left leg M79.605 [place] [address] [address] Jan, Obstructive sleep apnea G47.33 [place] [address] [address] Dec, Obstructive sleep apnea G47.33 and Mood disorder F39 [address] [address] [address] Dec, [facility] [address] [address] Dec, [place] [address] [address] Nov, Diabetes type 2, controlled E11.9 [place] [address] [address] Nov, Encounter for immunization Z23 [place] [address] [address] Nov, Primary insomnia F51.01 [place] [address] [address] Oct, Medicare annual wellness visit, subseque nt Z00.00 and Mood disorder F39 [facility] [id number] [place] [address] Sep, Mood disorder F39 [place] [address] [address] Aug, Primary insomnia F51.01 and Urinary hesi tancy R39.11 [facility] [address] [address] Aug, Primary insomnia F51.01 [facility] [address] [address] Jul, Diabetes type 2, controlled E11.9 ; Prim ju insomnia F51.01 and Mood disorder F39 [facility] [id number] [id number] Jun, Mood disorder F39 [facility] [address] [facility] [id number] Jun, [place] [address] [address] May, Nightmares F51.5 [address] [address] [address] May, Cognitive complaints R41.9 ; Unspecified mood [affective] disorder F39 and Primary insomnia F51.01 [facility] [address] [address] Apr, Mood disorder F39 and Primary insomnia F 51.01 [facility] [address] [address] Apr, Cognitive complaints R41.9 and Unspecifi ed mood [affective] disorder F39 [place] [address] [address] Apr, Cognitive complaints R41.9 and Unspecifi ed mood [affective] disorder F39 [facility] [address] [address] March, [address] [address] [address] March, Diabetes type 2, controlled E11.9 and Es sential hypertension I10 [address] [place] [address] [address] March, Primary insomnia F51.01 ; Diabetes type 2, controlled E11.9 and Pain in right shoulder M25.511 [address] [address] [address] March, Cognitive complaints R41.9 and Unspecifi ed mood [affective] disorder F39 [address] [address] Feb, 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 [address] [address] [address] Jan, [address] [address] Jan, [address] [address] [address] Dec, Diabetes type 2, controlled E11.9 ; Hype rtension, benign I10 and Mood disorder F39 [address] [address] [address] 08 Dec, 2016 Medicare annual wellness visit, initial Z00.[address] [address] Nov, Medicare welcome exam Z00.00 ; Encounter for immunization Z23 ; Medicare annual wellness visit, initial Z00.00 and Medicare annual wellness visit, subsequent Z00.[address] [address] Oct, [address] [address] Sep, [address] [address] Aug, Encounter for immunization Z23 and Callu s L84 [facility] [address] [id number] [place] [address] 07 Aug, 2016 [facility] [id number] [place] [address] Jul, Diabetes type 2, controlled E11.9 [facility] [id number] [place] [address] Jul, Diabetes type 2, controlled E11.9 [facility] [id number] [place] [address] Jun, [facility] [id number] [place] [address] Jun, Hypertension, benign I10 ; Mood disorder F39 and Diabetes type 2, controlled E11.9 [facility] [id number] [place] [address] Jun, Mood disorder F39 [facility] [id number] [place] [address] May, [facility] [id number] [place] [address] May, Mood disorder F39 [place] [id number] [place] [address] May, Mood disorder F39 [facility] [id number] [place] [address] Apr, Controlled type 2 diabetes mellitus with out complication, without long-term current use of insulin E11.9 ; Essential hypertension I10 and Pain in right shoulder M25.511 [facility] [id number] [place] [address] Apr, Mood disorder F39 [facility] [id number] [place] [address] Apr, Pre-op evaluation Z01.818 [facility] [id number] [place] [address] March, Mood disorder F39 [facility] [id number] [place] [address] Feb, [facility] [address] [address] Feb, Shoulder pain, right M25.511 [facility] [address] [address] Feb, Shoulder pain, right M25.511 [facility] [address] [address] Feb, Shoulder pain, right M25.511 [facility] [address] [address] Feb, Shoulder pain, right M25.511 [facility] [address] [address] Jan, Shoulder pain, right M25.511 [address] [place] [address] Jan, Shoulder pain, right M25.511 [facility] [address] [address] Jan, [facility] [address] [address] Jan, Diabetes type 2, controlled E11.9 [address] [address] [address] Jan, Shoulder pain, right M25.511 ; Diabetes mellitus without mention of complication, type II or unspecified type, not stated as uncontrolled 250.00 and Diabetes type 2, controlled E11.9 [facility] [address] [address] Jan, [facility] [address] [address] Jan, [facility] [address] [address] Dec, [address] [address] [address] Oct, Callus of foot L84 [facility] [address] [address] Oct, Anxiety F41.9 ; Callus of foot L84 and D ysuria R30.0 [facility] [address] [address] Sep, Diabetes mellitus without mention of com plication, type II or unspecified type, not stated as uncontrolled 250.00 [facility] [address] [address] Aug, Diabetes mellitus without mention of com plication, type II or unspecified type, not stated as uncontrolled 250.00 [address] [place] [address] [address] Jul, [facility] [address] [address] Jul, [facility] [address] [address] Jul, Diabetes mellitus without mention of com plication, type II or unspecified type, not stated as uncontrolled 250.00 ; Essential hypertension, benign 401.1 and Anxiety state, unspecified 300.00 [facility] [address] [address] Jul, [facility] [address] [address] Jun, [facility] [address] [address] Jun, [facility] [address] [address] May, [facility] [address] [address] May, [facility] [address] [address] Apr, [facility] [address] [address] Apr, Mood disorder 296.90 [facility] [address] [facility] [id number] [place] [address] March, [facility] [id number] [place] [address] Feb, [facility] [id number] [place] [address] Feb, [facility] [id number] [place] [address] Jan, [facility] [id number] [place] [address] Jan, [facility] [id number] [place] [address] Jan, [facility] [id number] [place] [address] Jan, [facility] [id number] [place] [address] Jan, [facility] [id number] [place] [address] Jan, [facility] [id number] [place] [address] Jan, [facility] [id number] [place] [address] Jan, [facility] [id number] [place] [address] Dec, [facility] [address] [id number] [place] [address] Dec, [facility] [address] [id number] [place] [address] Nov, [facility] [address] [id number] [place] [address] Nov, [facility] [address] [facility] [id number] [place] [address] Nov, [facility] [address] [facility] [address] [id number] [place] [address] Nov, [facility] [address] [facility] [id number] [place] [address] Oct, [facility] [address] [id number] [place] [address] Oct, [facility] [address] [id number] [place] [address] Oct, [facility] [id number] [place] [address] Oct, [facility] [id number] [place] [address] Oct, [facility] [id number] [place] [address] Oct, [facility] [id number] [place] [address] Oct, [facility] [id number] [place] [address] Oct, [facility] [id number] [place] [address] Oct, [facility] [address] [facility] [id number] [place] [address] Oct, [facility] [address] [id number] [place] [address] Sep, [facility] [address] [facility] [id number] [place] [address] Sep, [facility] [id number] [place] [address] 18 Sep, 2014 [facility] [address] [id number] [place] [address] Sep, [facility] [address] [facility] [id number] [place] [address] Sep, [facility] [address] [id number] [place] [address] Sep, [facility] [address] [facility] [id number] [place] [address] Aug, [facility] [address] [id number] [place] [address] Aug, [facility] [address] [facility] [address] [id number] [place] [address] Jul, [facility] [address] [facility] [id number] [place] [address] Jul, [facility] [address] [facility] [id number] [place] [address] Jun, [facility] [address] [id number] [place] [address] Jun, [facility] [address] [facility] [id number] [place] [address] May, [facility] [address] [facility] [id number] [place] [address] May, [facility] [address] [facility] [id number] [place] [address] Apr, [facility] [address] [facility] [id number] [place] [address] Apr, [facility] [address] [id number] [place] [address] Apr, [facility] [address] [id number] [place] [address] Apr, [facility] [address] [id number] [place] [address] March, [facility] [address] [id number] [place] [address] March, [facility] [address] [id number] [place] [address] Jan, [facility] [address] [id number] [place] [address] Jan, [facility] [address] [id number] [place] [address] Jan, [facility] [address] [id number] [place] [address] Jan, [facility] [address] [id number] [place] [address] Jan, [facility] [address] [id number] [place] [address] Jan, [facility] [address] [id number] [place] [address] Dec, [facility] [address] [id number] [place] [address] Dec, [facility] [address] [id number] [place] [address] Oct, [facility] [address] [id number] [place] [address] Oct, [facility] [address] [id number] [place] [address] Oct, [facility] [address] [id number] [place] [address] Oct, [facility] [address] [id number] [place] [address] Jul, [facility] [address] [id number] [place] [address] Jul, [facility] [address] [id number] [place] [address] Jul, [facility] [address] [facility] [id number] [place] [address] Jun, [facility] [address] [id number] [place] [address] Jun, [facility] [address] [facility] [address] [id number] [place] [address] May, [facility] [address] [facility] [id number] [place] [address] May, [facility] [address] [facility] [address] [id number] [place] [address] March, [facility] [address] [facility] [id number] [place] [address] March, [facility] [address] [id number] [place] [address] Feb, [facility] [address] [id number] [place] [address] Feb, [facility] [id number] [place] [address] Jan, [facility] [id number] [place] [address] Dec, [facility] [id number] [place] [address] Dec, [facility] [id number] [place] [address] Dec, [facility] [id number] [place] [address] Dec, [facility] [id number] [place] [address] Dec, [facility] [id number] [place] [address] Nov, [facility] [id number] [place] [address] Oct, [facility] [id number] [place] [address] Oct, [facility] [id number] [place] [address] Aug, [facility] [id number] [place] [address] Aug, [facility] [id number] [place] [address] Aug, [facility] [id number] [place] [address] Aug, [facility] [id number] [place] [address] Aug, [facility] [id number] [place] [address] Jul, [facility] [id number] [place] [address] Jul, [facility] [id number] [place] [address] Jun, [facility] [id number] [place] [address] Jun, [facility] [id number] [place] [address] May, [facility] [id number] [place] [address] May, [facility] [id number] [place] [address] May, [facility] [id number] [place] [address] Apr, [facility] [address] [id number] [place] [address] Apr, [facility] [id number] [place] [address] March, [facility] [id number] [place] [address] March, [facility] [id number] [place] [address] Feb, [facility] [id number] [place] [address] Feb, [facility] [id number] [place] [address] Feb, [facility] [id number] [place] [address] Feb, IMMUNIZATIONS No Known Immunizations SOCIAL HISTORY Never Assessed REASON FOR VISIT PLAN OF CARE VITAL SIGNS MEDICATIONS Unknown Medications RESULTS No Results PROCEDURES Procedure Date Ordered Result Body Site PSYCH DIAGNOSTIC EVALUATION February 17, 2013 INSTRUCTIONS MEDICATIONS ADMINISTERED No Known [...]
--- OUTSIDE RECORDS SUMMARY | 2020-06-17 08:43 | XMS REPORT ---
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 Name Role Phone BARRIE BUSTILLO Unavailable PROBLEMS Type Condition ICD9-CM Code [id number] Code Onset Dates Condition S tatus SNOMED Code Problem Diabetes type 2, controlled E11.9 Ac tive 90839123 Problem Essential hypertension I10 Active 04648375 Problem Primary insomnia F51.01 Active 397 2004 Problem Obstructive sleep apnea G47.33 Active 25646927 Problem Urinary hesitancy R39.11 Active 59 04954 Problem Hesitancy of micturition R39.11 Activ e 4286856 Problem Benign prostatic hyperplasia with lower urinary tract symptoms N40.1 Active 289219702 Problem Controlled type 2 diabetes m ellitus without complication, without long- term current use of insulin E11.9 Active 251753464 Problem Mood disorder F39 Active 921189 05 Problem Acute superficial venous thrombosis of left lower extremit y I82.812 Active 48108795082013619 Problem Panlobular emphysema J43.1 Active 4469146 Problem 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.1 Active 756551627 Problem 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 Acti ve 84563559 Problem Arthritis M19.90 Active 1725519 Problem Uncontrolled type 2 diabetes mellitus with hyperglycemia E11.65 Active 623033345 Problem EMIR (obstructive sleep apnea) G47.33 Active 66654028 ALLERGIES No Information ENCOUNTERS Encounter Location Date Diagnosis [facility] [address] [facility] [id number] [address] [place] [id number] March, [facility] [address] [facility] [facility] [id number] [address] [place] [phone] Jan, Foot callus L84 [facility] [address] [facility] [facility] [id number] [address] [place] [id number] 07 Dec, 2019 Moderate episode of recurren t major depressive disorder F33.1 [facility] [address] [id number] [address] [place] [phone] 04 Dec, 2019 Moderate episode of recurren t major depressive disorder F33.1 [facility] [address] [id number] [address] [place] [id number] 04 Dec, 2019 Moderate episode of recurren t major depressive disorder F33.1 [facility] [address] [id number] [address] [place] [phone] 16 Nov, 2019 Panlobular emphysema J43.1 ; Mood disorder F39 and Controlled type 2 diabetes mellitus without complication, without long-term current use of insulin E11.9 [facility] [address] [id number] [address] [place] [phone] Nov, [facility] [address] [facility] [id number] [address] [place] [address] Nov, Increased sputum production R09.3 and EMIR (obstructive sleep apnea) G47.33 [facility] [address] [id number] [address] [place] [phone] Oct, [facility] [address] [id number] [address] [place] [phone] Sep, [facility] [address] [id number] [address] [place] [phone] Sep, [facility] [address] [id number] [address] [place] [address] Sep, [facility] [address] [id number] [address] [place] [id number] Aug, Moderate episode of recurren t major depressive disorder F33.1 [facility] [address] [id number] [address] [place] [phone] Aug, Moderate episode of recurren t major depressive disorder F33.1 [facility] [address] [id number] [address] [place] [phone] Aug, Moderate episode of recurren t major depressive disorder F33.1 [facility] [address] [id number] [address] [place] [phone] Jul, [facility] [address] [id number] [address] [place] [id number] Jul, Foot callus L84 ; Uncontroll ed type 2 diabetes mellitus with hyperglycemia E11.65 ; Arthritis M19.90 ; Encounter for immunization Z23 ; Rib pain on right side R07.81 and Lumbar pain M54.5 [facility] [address] [id number] [address] [place] [id number] Jul, [facility] [address] [id number] [address] [place] [phone] Jun, [facility] [address] [id number] [address] [place] [id number] Jun, [facility] [address] [id number] [address] [place] [phone] Jun, Callus of foot L84 [facility] [address] [id number] [address] [place] [phone] Jun, [facility] [address] [id number] [address] [place] [phone] Apr, Exercise counseling Z71.82 [facility] [address] [id number] [address] [place] [id number] March, Moderate episode of recurren t major depressive disorder F33.1 [facility] [address] [id number] [address] [place] [phone] March, Moderate episode of recurren t major depressive disorder F33.1 [facility] [address] [id number] [address] [place] [address] March, Exercise counseling Z71.82 [facility] [address] [id number] [address] [place] [address] March, [facility] [address] [id number] [address] [place] [address] March, Exercise counseling Z71.82 [facility] [address] [id number] [address] [place] [address] March, Right otitis media with effu yousuf H65.91 ; 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 and Diabetes type 2, controlled E11.9 [facility] [address] [facility] [id number] [address] [place] [address] March, Moderate episode of recurren t major depressive disorder F33.1 [facility] [address] [id number] [address] [place] [address] March, Exercise counseling Z71.82 [facility] [address] [facility] [id number] [address] [place] [address] March, Exercise counseling Z71.82 [facility] [address] [facility] [id number] [address] [place] [address] March, Callus of foot L84 [facility] [address] [id number] [address] [place] [id number] Feb, Moderate episode of recurren t major depressive disorder F33.1 [facility] [address] [facility] [id number] [address] [place] [phone] Feb, [facility] [address] [facility] [id number] [address] [place] [address] Feb, Moderate episode of recurren t major depressive disorder F33.1 [facility] [address] [facility] [id number] [address] [place] [address] Feb, Diabetes type 2, controlled E11.9 and Essential hypertension I10 [facility] [address] [id number] [address] [place] [phone] Jan, [facility] [address] [facility] [id number] [address] [place] [phone] Jan, Callus of foot L84 [facility] [address] [facility] [id number] [address] [place] [address] Jan, Moderate episode of recurren t major depressive disorder F33.1 [facility] [address] [id number] [address] [place] [address] Jan, Moderate episode of recurren t major depressive disorder F33.1 [facility] [address] [facility] [facility] [id number] [address] [place] [address] Dec, Moderate episode of recurren t major depressive disorder F33.1 [facility] [address] [facility] [id number] [address] [place] [id number] 11 Dec, 2018 Candidiasis of the esophagus B37.81 [facility] [address] [facility] [id number] [address] [place] [phone] 08 Dec, 2018 [facility] [address] [id number] [address] [place] [id number] 04 Dec, 2018 Fecal occult blood test posi tive R19.5 and Anemia, unspecified type D64.9 [facility] [address] [id number] [address] [place] [address] Nov, Stool color black K92.1 [facility] [address] [facility] [id number] [address] [place] [address] Nov, Stool color black K92.1 [facility] [address] [facility] [id number] [address] [place] [id number] Nov, Stool color black K92.1 [facility] [address] [facility] [id number] [address] [place] [phone] Nov, [facility] [address] [id number] [address] [place] [id number] Nov, Moderate episode of recurren t major depressive disorder F33.1 [facility] [address] [id number] [address] [place] [phone] Oct, Moderate episode of recurren t major depressive disorder F33.1 [facility] [address] [facility] [id number] [address] [place] [address] Oct, Callus of foot L84 and Contr olled type 2 diabetes mellitus without complication, without long-term current use of insulin E11.9 [facility] [address] [id number] [address] [place] [phone] 10 Oct, 2018 Moderate episode of recurren t major depressive disorder F33.1 [facility] [address] [id number] [address] [place] [address] Aug, Mood disorder F39 [facility] [facility] [address] [id number] [address] [place] [address] Aug, Encounter for immunization Z 23 [place] [address] [id number] [address] [place] [address] Jul, Moderate episode of recurren t major depressive disorder F33.1 [place] [address] [id number] [address] [place] [phone] Jul, Moderate episode of recurren t major depressive disorder F33.1 [place] [address] [id number] [address] [place] [address] May, [facility] [facility] [address] [id number] [address] [place] [address] May, Moderate episode of recurren t major depressive disorder F33.1 [facility] [address] [id number] [address] [place] [address] May, Moderate episode of recurren t major depressive disorder F33.1 [place] [address] [id number] [address] [place] [phone] Apr, Benign prostatic hyperplasia with lower urinary tract symptoms N40.1 and Hesitancy of micturition R39.11 [facility] [address] [id number] [address] [place] [id number] Apr, Moderate episode of recurren t major depressive disorder F33.1 [facility] [address] [id number] [address] [place] [id number] Apr, Unspecified mood [affective] disorder F39 and Primary insomnia F51.01 [facility] [address] [id number] [address] [place] [address] Apr, Primary insomnia F51.01 [facility] [address] [id number] [address] [place] [phone] March, Foot callus L84 [facility] [address] [id number] [address] [place] [address] Feb, Medicare annual wellness vis it, initial Z00.00 [facility] [address] [id number] [address] [place] [id number] Feb, Acute superficial venous thr ombosis of left lower extremity I82.812 [facility] [address] [id number] [address] [place] [phone] Feb, [facility] [address] [id number] [address] [place] [id number] Feb, [facility] [address] [id number] [address] [place] [phone] Feb, Acute superficial venous thr ombosis of left lower extremity I82.812 [facility] [address] [id number] [address] [place] [address] Feb, [facility] [address] [id number] [address] [place] [address] Feb, Other specified soft tissue disorders M79.89 and Pain in left leg M79.605 [facility] [address] [id number] [address] [place] [phone] Jan, Obstructive sleep apnea G47. 33 [facility] [address] [facility] [facility] [id number] [address] [place] [address] Dec, Obstructive sleep apnea G47. 33 and Mood disorder F39 [facility] [address] [facility] [facility] [id number] [address] [place] [address] Dec, [facility] [address] [facility] [id number] [address] [place] [phone] Dec, [facility] [address] [facility] [facility] [id number] [address] [place] [phone] Nov, Diabetes type 2, controlled E11.9 [facility] [address] [facility] [id number] [address] [place] [phone] Nov, Encounter for immunization Z 23 [facility] [address] [facility] [id number] [address] [place] [address] Nov, Primary insomnia F51.01 [facility] [address] [facility] [id number] [address] [place] [address] 07 Oct, 2017 Medicare annual wellness vis it, subsequent Z00.00 and Mood disorder F39 [facility] [address] [facility] [facility] [id number] [address] [place] [address] Sep, Mood disorder F39 [facility] [address] [place] [id number] [address] [place] [phone] Aug, Primary insomnia F51.01 and Urinary hesitancy R39.11 [facility] [address] [facility] [id number] [address] [place] [address] Aug, Primary insomnia F51.01 [facility] [address] [facility] [facility] [id number] [address] [place] [id number] Jul, Diabetes type 2, controlled E11.9 ; Primary insomnia F51.01 and Mood disorder F39 [facility] [address] [id number] [id number] Jun, Mood disorder F39 [facility] [address] [id number] Monika ALCOCER S [id number] Jun, [facility] [address] [facility] [facility] [id number] [address] [place] [address] May, Nightmares F51.5 [facility] [address] [facility] [facility] [id number] [address] [place] [address] May, Cognitive complaints R41.9 ; Unspecified mood [affective] disorder F39 and Primary insomnia F51.01 [facility] [address] [id number] [address] [place] [address] Apr, Mood disorder F39 and Primar y insomnia F51.01 [facility] [address] [id number] [address] [place] [phone] Apr, Cognitive complaints R41.9 a nd Unspecified mood [affective] disorder F39 [facility] [address] [id number] [address] [place] [phone] Apr, Cognitive complaints R41.9 a nd Unspecified mood [affective] disorder F39 [facility] [address] [id number] [address] [place] [address] March, [facility] [address] [id number] [address] [place] [address] March, Diabetes type 2, controlled E11.9 and Essential hypertension I10 [facility] [address] [id number] [address] [place] [address] March, Primary insomnia F51.01 ; Di abetes type 2, controlled E11.9 and Pain in right shoulder M25.511 [facility] [address] [id number] [address] [place] [address] March, Cognitive complaints R41.9 a nd Unspecified mood [affective] disorder F39 [facility] [address] [id number] [address] [place] [phone] Feb, Other specified mental disor ders due to known physiological condition F06.8 [facility] [address] [id number] [address] [place] [address] Jan, [facility] [address] [id number] [address] [place] [phone] Jan, [facility] [address] [id number] [address] [place] [phone] Dec, Diabetes type 2, controlled E11.9 ; Hypertension, benign I10 and Mood disorder F39 [facility] [address] [id number] [address] [place] [id number] 08 Dec, 2016 Medicare annual wellness vis it, initial Z00.00 [facility] [address] [id number] [address] [place] [phone] 05 Nov, 2016 Medicare welcome exam Z00.00 ; Encounter for immunization Z23 ; Medicare annual wellness visit, initial Z00.00 and Medicare annual wellness visit, subsequent Z00.00 [facility] [address] [id number] [address] [place] [id number] Oct, [facility] [address] [id number] [address] [place] [address] Sep, [facility] [address] [facility] [facility] [id number] [address] [place] [address] Aug, Encounter for immunization Z 23 and Callus L84 [facility] [address] [id number] [address] [place] [address] Aug, [facility] [address] [id number] [address] [place] [id number] Jul, Diabetes type 2, controlled E11.9 [facility] [address] [id number] [address] [place] [id number] Jul, Diabetes type 2, controlled E11.9 [facility] [address] [id number] [address] [place] [id number] Jun, [facility] [address] [id number] [address] [place] [phone] Jun, Hypertension, benign I10 ; M ood disorder F39 and Diabetes type 2, controlled E11.9 [facility] [address] [id number] [address] [place] [address] Jun, Mood disorder F39 [facility] [address] [facility] [facility] [id number] [address] [place] [id number] May, [facility] [address] [id number] [address] [place] [phone] May, Mood disorder F39 [facility] [address] [id number] [address] [place] [id number] May, Mood disorder F39 [facility] [address] [id number] [address] [place] [address] Apr, Controlled type 2 diabetes m ellitus without complication, without long-term current use of insulin E11.9 ; Essential hypertension I10 and Pain in right shoulder M25.511 [facility] [address] [id number] [address] [place] [address] Apr, Mood disorder F39 [facility] [address] [id number] [address] [place] [address] Apr, Pre-op evaluation Z01.818 [facility] [address] [id number] [address] [place] [address] March, Mood disorder F39 [facility] [address] [id number] [address] [place] [address] Feb, [facility] [address] [id number] [address] [place] [address] Feb, Shoulder pain, right M25.511 [facility] [address] [id number] [address] [place] [address] Feb, Shoulder pain, right M25.511 [facility] [address] [id number] [address] [place] [address] Feb, Shoulder pain, right M25.511 [facility] [address] [id number] [address] [place] [address] Feb, Shoulder pain, right M25.511 [facility] [address] [id number] [address] [place] [id number] Jan, Shoulder pain, right M25.511 [facility] [address] [id number] [address] [place] [address] Jan, Shoulder pain, right M25.511 [facility] [address] [facility] [id number] [address] [place] [phone] Jan, [facility] [address] [place] [id number] [address] [place] [id number] Jan, Diabetes type 2, controlled E11.9 [facility] [address] [facility] [id number] [address] [place] [id number] Jan, Shoulder pain, right M25.511 ; Diabetes mellitus without mention of complication, type II or unspecified type, not stated as uncontrolled 250.00 and Diabetes type 2, controlled E11.9 [place] [address] [facility] [id number] [address] [place] [phone] Jan, [place] [address] [place] [id number] [place] [phone] Jan, [place] [address] [place] [id number] [place] [phone] Dec, [place] [address] [place] [id number] [address] [place] [address] Oct, Callus of foot L84 [place] [address] [place] [id number] [address] [place] [address] Oct, Anxiety F41.9 ; Callus of fo ot L84 and Dysuria R30.0 [place] [address] [place] [id number] [address] [place] [id number] Sep, Diabetes mellitus without me ntion of complication, type II or unspecified type, not stated as uncontrolled 250.00 [place] [address] [place] [id number] [address] [place] [address] Aug, Diabetes mellitus without me ntion of complication, type II or unspecified type, not stated as uncontrolled 250.00 [place] [address] [place] [id number] [address] [place] [id number] Jul, [place] [address] [place] [id number] [place] [phone] Jul, [facility] [address] [id number] [address] [place] [phone] Jul, Diabetes mellitus without me ntion of complication, type II or unspecified type, not stated as uncontrolled 250.00 ; Essential hypertension, benign 401.1 and Anxiety state, unspecified 300.00 [facility] [address] [id number] [address] [place] [phone] Jul, [facility] [address] [id number] [address] [place] [id number] Jun, [facility] [address] [id number] [address] [place] [phone] Jun, [facility] [address] [id number] [address] [place] [phone] May, [facility] [address] [id number] [address] [place] [phone] May, [facility] [address] [id number] [address] [place] [id number] Apr, [facility] [address] [id number] [address] [place] [phone] Apr, Mood disorder 296.90 [facility] [address] [id number] [address] [place] [id number] March, [facility] [address] [id number] [address] [place] [id number] Feb, [facility] [address] [id number] [address] [place] [id number] Feb, [facility] [address] [id number] [address] [place] [phone] Jan, [facility] [address] [id number] [address] [place] [id number] Jan, [facility] [address] [id number] [address] [place] [phone] Jan, [facility] [address] [id number] [address] [place] [address], [place] [address] Jan, [facility] [address] [id number] [address] [place] [address], [place] [id number] Jan, [facility] [address] [id number] [address] [place] [address], [place] [id number] Jan, [facility] [address] [id number] [address] [place] [address], [place] [phone] Jan, [facility] [address] [id number] [address] [place] [address], [place] [id number] Jan, [facility] [address] [id number] [address] [place] [address], [place] [id number] Dec, [facility] [address] [id number] [address] [place] [address], [place] [id number] Dec, [facility] [address] [id number] [address] [place] [address], [place] [address] Nov, [facility] [facility] [address] [id number] [address] [place] [address], [place] [address] Nov, [facility] [address] [id number] [address] [place] [address], [place] [address] Nov, [facility] [address] [id number] [address] [place] [address], [place] [address] Nov, [facility] [address] [id number] [address] [place] [address], [place] [address] Oct, [facility] [address] [id number] [address] [place] [address], [place] [address] Oct, [facility] [address] [id number] [address] [place] [address], [place] [address] Oct, [facility] [address] [id number] [address] [place] [address], [place] [address] Oct, [facility] [address] [id number] [address] [place] [address], [place] [address] 24 Oct, 2014 [facility] [address] [id number] [address] [place] [address], [place] [address] 24 Oct, 2014 [facility] [address] [id number] [address] [place] [address], [place] [address] 17 Oct, 2014 [facility] [address] [id number] [address] [place] [address], [place] [address] 17 Oct, 2014 [facility] [address] [id number] [address] [place] [address], [place] [address] 15 Oct, 2014 [facility] [address] [id number] [address] [place] [address], [place] [address] 15 Oct, 2014 [facility] [address] [id number] [address] [place] [address], [place] [address] 19 Sep, 2014 [facility] [address] [id number] [address] [place] [address], [place] [address] 19 Sep, 2014 [facility] [address] [id number] [address] [place] [address], [place] [address] 18 Sep, 2014 [facility] [address] [id number] [address] [place] [address], [place] [address] 18 Sep, 2014 [facility] [address] [id number] [address] [place] [address], [place] [address] 18 Sep, 2014 [facility] [address] [id number] [address] [place] [address], [place] [address] 18 Sep, 2014 [facility] [address] [id number] [address] [place] [address], [place] [address] 16 Aug, 2014 [facility] [address] [id number] [address] [place] [address], [place] [address] 16 Aug, 2014 [facility] [address] [id number] [address] [place] [address], [place] [address] 19 Jul, 2014 [facility] [address] [id number] [address] [place] [address], [place] [address] Jul, [facility] [address] [id number] [facility] [place] [address] Jun, [facility] [address] [id number] [address] [place] [address], [place] [address] Jun, [facility] [address] [id number] [facility] [place] [address] May, [facility] [address] [id number] [address] [place] [address], [place] [address] May, [facility] [address] [id number] [address] [place] [address], [place] [address] Apr, [facility] [address] [id number] [address] [place] [address], [place] [address] Apr, [facility] [address] [id number] [address] [place] [address], [place] [address] Apr, [facility] [address] [id number] [address] [place] [address], [place] [address] Apr, [facility] [address] [id number] [address] [place] [address], [place] [address] March, [facility] [address] [id number] [address] [place] [address], [place] [address] March, [facility] [address] [id number] [address] [place] [address], [place] [address] Jan, [facility] [address] [id number] [address] [place] [address], [place] [address] Jan, [facility] [address] [id number] [address] [place] [address], [place] [address] Jan, [facility] [address] [id number] [address] [place] [address], [place] [address] Jan, [facility] [address] [id number] [address] [place] [address], [place] [address] Jan, [facility] [place] [address] [id number] [address] [place] [address] Jan, [facility] [address] [id number] [address] [place] [address], [place] [address] Dec, [facility] [address] [id number] [address] [place] [address], [place] [address] Dec, [facility] [address] [id number] [address] [place] [address], [place] [address] Oct, [facility] [address] [id number] [address] [place] [address], [place] [address] Oct, [facility] [address] [id number] [address] [place] [address], [place] [address] Oct, [facility] [address] [id number] [address] [place] [address], [place] [address] Oct, [facility] [address] [id number] [address] [place] [address], [place] [address] Jul, [facility] [address] [id number] [address] [place] [address], [place] [address] Jul, [facility] [address] [id number] [address] [place] [address], [place] [address] Jul, [facility] [address] [id number] [address] [place] [address], [place] [address] Jun, [facility] [address] [id number] [address] [place] [address], [place] [address] Jun, [facility] [address] [id number] [address] [place] [address], [place] [address] May, [facility] [address] [id number] [address] [place] [address], [place] [address] May, [facility] [address] [id number] [address] [place] [address], [place] [address] March, [facility] [address] [id number] [address] [place] [address], [place] [address] March, [facility] [address] [id number] [address] [place] [address], [place] [address] Feb, [facility] [address] [id number] [address] [place] [address], [place] [address] Feb, [facility] [address] [id number] [address] [place] [address], [place] [address] Jan, [facility] [address] [id number] [address] [place] [address], [place] [address] Dec, [facility] [address] [id number] [address] [place] [address], [place] [address] Dec, [facility] [address] [id number] [address] [place] [address], [place] [address] Dec, [facility] [address] [id number] [address] [place] [address], [place] [address] Dec, [facility] [address] [id number] [address] [place] [address] Dec, [facility] [address] [id number] [address] [place] [address] Nov, [facility] [address] [id number] [address] [place] [address] Oct, [facility] [address] [id number] [address] [place] [address] Oct, [facility] [address] [id number] [address] [place] [address] Aug, [facility] [address] [id number] [address] [place] [address], [place] [address] Aug, [facility] [address] [id number] [address] [place] [address] Aug, [facility] [address] [id number] [address] [place] [address] Aug, [facility] [address] [id number] [address] [place] [address], [place] [address] 02 Aug, 2012 [facility] [address] [id number] [address] [place] [address], [place] [address] Jul, [facility] [address] [id number] [address] [place] [address], [place] [address] Jul, [facility] [address] [id number] [address] [place] [address], [place] [address] Jun, [facility] [address] [id number] [address] [place] [address], [place] [address] Jun, [facility] [address] [id number] [address] [place] [address], [place] [address] 30 May, 2012 [facility] [address] [id number] [address] [place] [address], [place] [address] May, [facility] [address] [id number] [address] [place] [address], [place] [address] May, [facility] [address] [id number] [address] [place] [address], [place] [address] Apr, [facility] [address] [id number] [address] [place] [address], [place] [address] Apr, [facility] [address] [id number] [address] [place] [address], [place] [address] March, [facility] [address] [id number] [address] [place] [address], [place] [address] March, [facility] [address] [id number] [address] [place] [address] 18 Feb, 2012 [facility] [address] [id number] [address] [place] [address], [place] [address] 17 Feb, 2012 [facility] [address] [id number] [address] [place] [address], [place] [address] Feb, [facility] [address] [id number] [address] [place] [address] Feb, IMMUNIZATIONS No Known Immunizations SOCIAL HISTORY [...]
--- OUTSIDE RECORDS SUMMARY | 2020-06-17 08:43 | XMS REPORT ---
Author Author Barrie BUSTILLO Organization [facility] Address [address] [place] [address] Care Team Providers Care Consumer Lender Name Role Phone BARRIE BUSTILLO Unavailable PROBLEMS Type Condition ICD9-CM Code [id number] Code Onset Dates Condition S tatus SNOMED Code Problem Diabetes type 2, controlled E11.9 Ac tive 23754583 Problem Essential hypertension I10 Active 10586542 Problem Primary insomnia F51.01 Active 397 2004 Problem Obstructive sleep apnea G47.33 Active 76418085 Problem Urinary hesitancy R39.11 Active 59 01706 Problem Hesitancy of micturition R39.11 Activ e 0662194 Problem Benign prostatic hyperplasia with lower urinary tract symptoms N40.1 Active 625388457 Problem Controlled type 2 diabetes m ellitus without complication, without long- term current use of insulin E11.9 Active 415013174 Problem Mood disorder F39 Active 434154 05 Problem Acute superficial venous thrombosis of left lower extremit y I82.812 Active 10242873227069034 Problem Panlobular emphysema J43.1 Active 6235183 Problem 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.1 Active 129682829 Problem 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 Acti ve 05956073 Problem Arthritis M19.90 Active 1891167 Problem Uncontrolled type 2 diabetes mellitus with hyperglycemia E11.65 Active 807644159 Problem EMIR (obstructive sleep apnea) G47.33 Active [id number] ALLERGIES No Information ENCOUNTERS Encounter Location Date Diagnosis [facility] [address] [facility] [id number] [address] [place] [phone] March, [facility] [address] [facility] [id number] [address] [place] [phone] Jan, Foot callus L84 [facility] [address] [facility] [id number] [address] [place] [phone] 07 Dec, 2019 Moderate episode of recurren t major depressive disorder F33.1 [facility] [address] [id number] [address] [place] [phone] 04 Dec, 2019 Moderate episode of recurren t major depressive disorder F33.1 [facility] [address] [id number] [address] [place] [phone] 04 Dec, 2019 Moderate episode of recurren t major depressive disorder F33.1 [facility] [address] [id number] [address] [place] [phone] 16 Nov, 2019 Panlobular emphysema J43.1 ; Mood disorder F39 and Controlled type 2 diabetes mellitus without complication, without long-term current use of insulin E11.9 [facility] [address] [id number] [address] [place] [phone] Nov, [facility] [address] [facility] [id number] [address] [place] [phone] Nov, Increased sputum production R09.3 and EMIR (obstructive sleep apnea) G47.33 [facility] [address] [id number] [address] [place] [phone] Oct, [facility] [address] [id number] [address] [place] [phone] Sep, [facility] [address] [id number] [address] [place] [phone] Sep, [facility] [address] [id number] [address] [place] [phone] Sep, [facility] [address] [id number] [address] [place] [phone] Aug, Moderate episode of recurren t major depressive disorder F33.1 [facility] [address] [id number] [address] [place] [phone] Aug, Moderate episode of recurren t major depressive disorder F33.1 [facility] [address] [id number] [address] [place] [phone] Aug, Moderate episode of recurren t major depressive disorder F33.1 [facility] [address] [id number] [address] [place] [phone] Jul, [facility] [address] [id number] [address] [place] [phone] Jul, Foot callus L84 ; Uncontroll ed type 2 diabetes mellitus with hyperglycemia E11.65 ; Arthritis M19.90 ; Encounter for immunization Z23 ; Rib pain on right side R07.81 and Lumbar pain M54.5 [facility] [address] [id number] [address] [place] [phone] Jul, [facility] [address] [id number] [address] [place] [phone] Jun, [facility] [address] [id number] [address] [place] [id number] Jun, [facility] [address] [id number] [address] [place] [phone] Jun, Callus of foot L84 [facility] [address] [id number] [address] [place] [phone] Jun, [facility] [address] [id number] [address] [place] [address] Apr, Exercise counseling Z71.82 [facility] [address] [id number] [address] [place] [phone] March, Moderate episode of recurren t major depressive disorder F33.1 [facility] [address] [id number] [address] [place] [phone] March, Moderate episode of recurren t major depressive disorder F33.1 [facility] [address] [id number] [address] [place] [address] March, Exercise counseling Z71.82 [facility] [address] [id number] [address] [place] [phone] March, [facility] [address] [id number] [address] [place] [phone] March, Exercise counseling Z71.82 [facility] [address] [id number] [address] [place] [phone] March, Right otitis media with effu yousuf H65.91 ; 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 and Diabetes type 2, controlled E11.9 [facility] [place] [address] [facility] [id number] [address] [place] [phone] March, Moderate episode of recurren t major depressive disorder F33.1 [place] [address] [id number] [address] [place] [phone] March, Exercise counseling Z71.82 [place] [address] [facility] [id number] [address] [place] [address] March, Exercise counseling Z71.82 [place] [address] [facility] [id number] [address] [place] [phone] March, Callus of foot L84 [place] [address] [id number] [address] [place] [phone] Feb, Moderate episode of recurren t major depressive disorder F33.1 [place] [address] [facility] [id number] [address] [place] [phone] Feb, [place] [address] [facility] [id number] [address] [place] [phone] Feb, Moderate episode of recurren t major depressive disorder F33.1 [place] [address] [facility] [id number] [address] [place] [phone] Feb, Diabetes type 2, controlled E11.9 and Essential hypertension I10 [facility] [address] [id number] [address] [place] [phone] Jan, [place] [address] [facility] [id number] [address] [place] [phone] Jan, Callus of foot L84 [place] [address] [facility] [id number] [address] [place] [phone] Jan, Moderate episode of recurren t major depressive disorder F33.1 [facility] [address] [id number] [address] [place] [phone] Jan, Moderate episode of recurren t major depressive disorder F33.1 [facility] [address] [facility] [id number] [address] [place] [phone] Dec, Moderate episode of recurren t major depressive disorder F33.1 [facility] [address] [facility] [id number] [address] [place] [phone] 11 Dec, 2018 Candidiasis of the esophagus B37.81 [facility] [address] [facility] [id number] [address] [place] [phone] 08 Dec, 2018 [facility] WALK IN [facility] [address] [facility] [id number] [address] [place] [phone] 04 Dec, 2018 Fecal occult blood test posi tive R19.5 and Anemia, unspecified type D64.9 [facility] [address] [facility] [id number] [address] [place] [phone] Nov, Stool color black K92.1 [place] [address] [facility] [id number] [address] [place] [phone] Nov, Stool color black K92.1 [place] [address] [facility] [id number] [address] [place] [phone] Nov, Stool color black K92.1 [facility] [address] [facility] [id number] [address] [place] [phone] Nov, [facility] [address] [facility] [id number] [address] [place] [phone] Nov, Moderate episode of recurren t major depressive disorder F33.1 [facility] [address] [facility] [id number] [address] [place] [phone] Oct, Moderate episode of recurren t major depressive disorder F33.1 [facility] [address] [facility] [id number] [address] [place] [phone] Oct, Callus of foot L84 and Contr olled type 2 diabetes mellitus without complication, without long-term current use of insulin E11.9 [place] [address] [id number] [address] [place] [phone] 10 Oct, 2018 Moderate episode of recurren t major depressive disorder F33.1 [place] [address] [id number] [address] [place] [phone] Aug, Mood disorder F39 [place] [address] [id number] [address] [place] [phone] Aug, Encounter for immunization Z 23 [place] [address] [id number] [address] [place] [phone] Jul, Moderate episode of recurren t major depressive disorder F33.1 [place] [address] [id number] [address] [place] [address] Jul, Moderate episode of recurren t major depressive disorder F33.1 [place] [address] [id number] [address] [place] [address] May, [place] [address] [id number] [address] [place] [address] May, Moderate episode of recurren t major depressive disorder F33.1 [place] [address] [id number] [address] [place] [phone] May, Moderate episode of recurren t major depressive disorder F33.1 [place] [address] [id number] [address] [place] [phone] Apr, Benign prostatic hyperplasia with lower urinary tract symptoms N40.1 and Hesitancy of micturition R39.11 [place] [address] [id number] [address] [place] [phone] Apr, Moderate episode of recurren t major depressive disorder F33.1 [place] [address] [id number] [address] [place] [address] Apr, Unspecified mood [affective] disorder F39 and Primary insomnia F51.01 [facility] [address] [id number] [address] [place] [address] Apr, Primary insomnia F51.01 [facility] [address] [id number] [address] [place] [phone] March, Foot callus L84 [facility] [address] [id number] [address] [place] [phone] Feb, Medicare annual wellness vis it, initial Z00.00 [facility] [address] [id number] [address] [place] [phone] Feb, Acute superficial venous thr ombosis of left lower extremity I82.812 [facility] [address] [id number] [address] [place] [address] Feb, [facility] [address] [id number] [address] [place] [phone] Feb, [facility] [address] [id number] [address] [place] [phone] Feb, Acute superficial venous thr ombosis of left lower extremity I82.812 [facility] [address] [id number] [address] [place] [phone] Feb, [facility] [address] [id number] [address] [place] [phone] Feb, Other specified soft tissue disorders M79.89 and Pain in left leg M79.605 [facility] [address] [id number] [address] [place] [phone] Jan, Obstructive sleep apnea G47. 33 [facility] [address] [facility] [id number] [address] [place] [phone] Dec, Obstructive sleep apnea G47. 33 and Mood disorder F39 [facility] [address] [facility] [id number] [address] [place] [phone] Dec, [facility] [address] [facility] [id number] [address] [place] [phone] Dec, [facility] [address] [facility] [id number] [address] [place] [phone] Nov, Diabetes type 2, controlled E11.9 [facility] [address] [facility] [id number] [address] [place] [phone] Nov, Encounter for immunization Z 23 [facility] [address] [facility] [id number] [address] [place] [phone] Nov, Primary insomnia F51.01 [facility] [address] [facility] [id number] [address] [place] [phone] 07 Oct, 2017 Medicare annual wellness vis it, subsequent Z00.00 and Mood disorder F39 [facility] [address] [facility] [id number] [address] [place] [phone] Sep, Mood disorder F39 [facility] [address] [place] [id number] [address] [place] [phone] Aug, Primary insomnia F51.01 and Urinary hesitancy R39.11 [facility] [address] [facility] [id number] [address] [place] [address] Aug, Primary insomnia F51.01 [facility] [address] [facility] [id number] [address] [place] [phone] Jul, Diabetes type 2, controlled E11.9 ; Primary insomnia F51.01 and Mood disorder F39 [facility] [address] [id number] [id number] Jun, Mood disorder F39 [facility] [address] [id number] Monika ALCOCER S [id number] Jun, [facility] [address] [facility] [id number] [address] [place] [address] May, Nightmares F51.5 [facility] [address] [facility] [id number] [address] [place] [phone] May, Cognitive complaints R41.9 ; Unspecified mood [affective] disorder F39 and Primary insomnia F51.01 [facility] [address] [id number] [address] [place] [phone] Apr, Mood disorder F39 and Primar y insomnia F51.01 [facility] [address] [id number] [address] [place] [address] Apr, Cognitive complaints R41.9 a nd Unspecified mood [affective] disorder F39 [facility] [address] [id number] [address] [place] [phone] Apr, Cognitive complaints R41.9 a nd Unspecified mood [affective] disorder F39 [facility] [address] [id number] [address] [place] [phone] March, [facility] [address] [id number] [address] [place] [phone] March, Diabetes type 2, controlled E11.9 and Essential hypertension I10 [facility] [address] [id number] [address] [place] [address] March, Primary insomnia F51.01 ; Di abetes type 2, controlled E11.9 and Pain in right shoulder M25.511 [facility] [address] [id number] [address] [place] [id number] March, Cognitive complaints R41.9 a nd Unspecified mood [affective] disorder F39 [facility] [address] [id number] [address] [place] [phone] Feb, Other specified mental disor ders due to known physiological condition F06.8 [facility] [address] [id number] [address] [place] [phone] Jan, [facility] [address] [id number] [address] [place] [phone] Jan, [facility] [address] [id number] [address] [place] [phone] Dec, Diabetes type 2, controlled E11.9 ; Hypertension, benign I10 and Mood disorder F39 [facility] [address] [id number] [address] [place] [phone] 08 Dec, 2016 Medicare annual wellness vis it, initial Z00.00 [facility] [address] [id number] [address] [place] [phone] 05 Nov, 2016 Medicare welcome exam Z00.00 ; Encounter for immunization Z23 ; Medicare annual wellness visit, initial Z00.00 and Medicare annual wellness visit, subsequent Z00.00 [facility] [address] [id number] [address] [place] [phone] Oct, [facility] [address] [id number] [address] [place] [phone] Sep, [facility] [address] [facility] [id number] [address] [place] [phone] Aug, Encounter for immunization Z 23 and Callus L84 [facility] [address] [id number] [address] [place] [phone] Aug, [facility] [address] [id number] [address] [place] [id number] Jul, Diabetes type 2, controlled E11.9 [facility] [address] [id number] [address] [place] [phone] Jul, Diabetes type 2, controlled E11.9 [facility] [address] [id number] [address] [place] [phone] Jun, [facility] [address] [id number] [address] [place] [phone] Jun, Hypertension, benign I10 ; M ood disorder F39 and Diabetes type 2, controlled E11.9 [facility] [address] [id number] [address] [place] [phone] Jun, Mood disorder F39 [facility] [address] [facility] [id number] [address] [place] [address] May, [facility] [address] [id number] [address] [place] [phone] May, Mood disorder F39 [facility] [address] [id number] [address] [place] [phone] May, Mood disorder F39 [facility] [address] [id number] [address] [place] [phone] Apr, Controlled type 2 diabetes m ellitus without complication, without long-term current use of insulin E11.9 ; Essential hypertension I10 and Pain in right shoulder M25.511 [facility] [address] [id number] [address] [place] [phone] Apr, Mood disorder F39 [facility] [address] [id number] [address] [place] [address] Apr, Pre-op evaluation Z01.818 [facility] [address] [id number] [address] [place] [phone] March, Mood disorder F39 [facility] [address] [id number] [address] [place] [phone] Feb, [facility] [address] [id number] [address] [place] [id number] Feb, Shoulder pain, right M25.511 [facility] [address] [id number] [address] [place] [phone] Feb, Shoulder pain, right M25.511 [facility] [address] [id number] [address] [place] [address] Feb, Shoulder pain, right M25.511 [facility] [address] [id number] [address] [place] [address] Feb, Shoulder pain, right M25.511 [facility] [address] [id number] [address] [place] [address] Jan, Shoulder pain, right M25.511 [facility] [address] [id number] [address] [place] [phone] Jan, Shoulder pain, right M25.511 [place] [address] [address] [facility] [id number] [address] [place] [phone] Jan, [facility] [address] [place] [id number] [address] [place] [phone] Jan, Diabetes type 2, controlled E11.9 [place] [address] [address] [facility] [id number] [address] [place] [phone] Jan, Shoulder pain, right M25.511 ; Diabetes mellitus without mention of complication, type II or unspecified type, not stated as uncontrolled 250.00 and Diabetes type 2, controlled E11.9 [place] [address] [address] [facility] [id number] [address] [place] [phone] Jan, [place] [address] [place] [id number] [place] [id number] Jan, [place] [address] [place] [id number] [place] [phone] Dec, [place] [address] [place] [id number] [address] [place] [phone] Oct, Callus of foot L84 [place] [address] [place] [id number] [address] [place] [phone] Oct, Anxiety F41.9 ; Callus of fo ot L84 and Dysuria R30.0 [place] [address] [address] [place] [id number] [address] [place] [phone] Sep, Diabetes mellitus without me ntion of complication, type II or unspecified type, not stated as uncontrolled 250.00 [place] [address] [place] [id number] [address] [place] [phone] Aug, Diabetes mellitus without me ntion of complication, type II or unspecified type, not stated as uncontrolled 250.00 [place] [address] [place] [id number] [address] [place] [phone] Jul, [place] [address] [address] [place] [id number] [place] [phone] Jul, [facility] [address] [id number] [address] [place] [phone] Jul, Diabetes mellitus without me ntion of complication, type II or unspecified type, not stated as uncontrolled 250.00 ; Essential hypertension, benign 401.1 and Anxiety state, unspecified 300.00 [facility] [address] [id number] [address] [place] [phone] Jul, [facility] [address] [id number] [address] [place] [id number] Jun, [facility] [address] [id number] [address] [place] [address] Jun, [facility] [address] [id number] [address] [place] [address] May, [facility] [address] [id number] [address] [place] [address] May, [facility] [address] [id number] [address] [place] [address] Apr, [facility] [address] [id number] [address] [place] [address] Apr, Mood disorder 296.90 [facility] [address] [id number] [address] [place] [address] March, [facility] [address] [id number] [address] [place] [address] Feb, [facility] [address] [id number] [address] [place] [phone] Feb, [facility] [address] [id number] [address] [place] [address] Jan, [facility] [address] [id number] [address] [place] [address] Jan, [facility] [address] [id number] [address] [place] [phone] Jan, [facility] [address] [id number] [address] [place] [address], [place] [address] Jan, [facility] [address] [id number] [address] [place] [address], [place] [address] Jan, [facility] [address] [id number] [address] [place] [address], [place] [address] Jan, [facility] [address] [id number] [address] [place] [address], [place] [address] Jan, [facility] [address] [id number] [address] [place] [address], [place] [address] Jan, [facility] [address] [id number] [address] [place] [address], [place] [address] Dec, [facility] [address] [id number] [address] [place] [address], [place] [address] Dec, [facility] [address] [id number] [address] [place] [address], [place] [address] Nov, [facility] [address] [id number] [address] [place] [address], [place] [address] Nov, [facility] [address] [id number] [address] [place] [address], [place] [address] Nov, [facility] [address] [id number] [address] [place] [address], [place] [address] Nov, [facility] [address] [id number] [address] [place] [address], [place] [address] Oct, [facility] [address] [id number] [address] [place] [address], [place] [address] Oct, [facility] [address] [id number] [address] [place] [address], [place] [address] Oct, [facility] [address] [id number] [address] [place] [address], [place] [address] Oct, [facility] [place] [facility] [address] [id number] [address] [place] [address], [place] [address] 24 Oct, 2014 [facility] [place] [facility] [address] [id number] [address] [place] [address], [place] [address] 24 Oct, 2014 [facility] [place] [facility] [address] [id number] [address] [place] [address], [place] [address] 17 Oct, 2014 [facility] [place] [facility] [address] [id number] [address] [place] [address], [place] [address] 17 Oct, 2014 [facility] [place] [facility] [address] [id number] [address] [place] [address], [place] [address] 15 Oct, 2014 [facility] [place] [facility] [address] [id number] [address] [place] [address], [place] [address] 15 Oct, 2014 [facility] [place] [facility] [address] [id number] [address] [place] [address], [place] [address] 19 Sep, 2014 [facility] [place] [facility] [address] [id number] [address] [place] [address], [place] [address] 19 Sep, 2014 [facility] [place] [facility] [address] [id number] [address] [place] [address], [place] [address] 18 Sep, 2014 [facility] [place] [facility] [address] [id number] [address] [place] [address], [place] [address] 18 Sep, 2014 [facility] [place] [facility] [address] [id number] [address] [place] [address], [place] [address] 18 Sep, 2014 [facility] [place] [facility] [address] [id number] [address] [place] [address], [place] [address] 18 Sep, 2014 [facility] [place] [facility] [address] [id number] [address] [place] [address], [place] [address] 16 Aug, 2014 [facility] [place] [facility] [address] [id number] [address] [place] [address], [place] [address] 16 Aug, 2014 [facility] [place] [facility] [address] [id number] [address] [place] [address], [place] [address] 19 Jul, 2014 [facility] [place] [facility] [address] [id number] [address] [place] [address], [place] [address] Jul, [facility] [address] [id number] [facility] [place] [address] Jun, [facility] [place] [facility] [address] [id number] [address] [place] [address], [place] [address] Jun, [facility] [address] [id number] [facility] [place] [address] May, [facility] [place] [facility] [address] [id number] [address] [place] [address], [place] [address] May, [facility] [address] [id number] [address] [place] [address], [place] [address] Apr, [facility] [address] [id number] [address] [place] [address], [place] [address] Apr, [facility] [address] [id number] [address] [place] [address], [place] [address] Apr, [facility] [place] [facility] [address] [id number] [address] [place] [address], [place] [address] Apr, [facility] [address] [id number] [address] [place] [address], [place] [address] March, [facility] [place] [facility] [address] [id number] [address] [place] [address], [place] [address] March, [facility] [address] [id number] [address] [place] [address], [place] [address] Jan, [facility] [place] [facility] [address] [id number] [address] [place] [address], [place] [address] Jan, [facility] [place] [address] [id number] [address] [place] [address], [place] [address] Jan, [facility] [place] [facility] [address] [id number] [address] [place] [address], [place] [address] Jan, [facility] [place] [facility] [address] [id number] [address] [place] [address], [place] [address] Jan, [facility] [place] [facility] [address] [id number] [address] [place] [address] Jan, [facility] [address] [id number] [address] [place] [address], [place] [address] Dec, [facility] [address] [id number] [address] [place] [address], [place] [address] Dec, [facility] [address] [id number] [address] [place] [address], [place] [address] Oct, [facility] [address] [id number] [address] [place] [address], [place] [address] Oct, [facility] [address] [id number] [address] [place] [address], [place] [address] Oct, [facility] [address] [id number] [address] [place] [address], [place] [address] Oct, [facility] [address] [id number] [address] [place] [address], [place] [address] Jul, [facility] [address] [id number] [address] [place] [address], [place] [address] Jul, [facility] [address] [id number] [address] [place] [address], [place] [address] Jul, [facility] [address] [id number] [address] [place] [address], [place] [address] Jun, [facility] [address] [id number] [address] [place] [address], [place] [address] Jun, [facility] [address] [id number] [address] [place] [address], [place] [address] May, [facility] [address] [id number] [address] [place] [address], [place] [address] May, [facility] [address] [id number] [address] [place] [address], [place] [address] March, [facility] [address] [id number] [address] [place] [address], [place] [address] March, [facility] [address] [id number] [address] [place] [address], [place] [address] Feb, [facility] [address] [id number] [address] [place] [address], [place] [address] Feb, [facility] [address] [id number] [address] [place] [address], [place] [address] Jan, [facility] [address] [id number] [address] [place] [address], [place] [address] Dec, [facility] [address] [id number] [address] [place] [address], [place] [address] Dec, [facility] [address] [id number] [address] [place] [address], [place] [address] Dec, [facility] [address] [id number] [address] [place] [address], [place] [address] Dec, [facility] [address] [id number] [address] [place] [address] Dec, [facility] [address] [id number] [address] [place] [address] Nov, [facility] [address] [id number] [address] [place] [address] Oct, [facility] [address] [id number] [address] [place] [address] Oct, [facility] [address] [id number] [address] [place] [address] Aug, [facility] [address] [id number] [address] [place] [address], [place] [address] Aug, [facility] [address] [id number] [address] [place] [address] Aug, [facility] [address] [id number] [address] [place] [address] Aug, [facility] [address] [id number] [address] [place] [address], [place] [address] 02 Aug, 2012 [facility] [address] [id number] [address] [place] [address], [place] [address] Jul, [facility] [address] [id number] [address] [place] [address], [place] [address] Jul, [facility] [address] [id number] [address] [place] [address], [place] [address] Jun, [facility] [address] [id number] [address] [place] [address], [place] [address] Jun, [facility] [address] [id number] [address] [place] [address], [place] [address] 30 May, 2012 [facility] [address] [id number] [address] [place] [address], [place] [address] May, [facility] [address] [id number] [address] [place] [address], [place] [address] May, [facility] [address] [id number] [address] [place] [address], [place] [address] Apr, [facility] [address] [id number] [address] [place] [address], [place] [address] Apr, [facility] [address] [id number] [address] [place] [address], [place] [address] March, [facility] [address] [id number] [address] [place] [address], [place] [address] March, [facility] [address] [id number] [address] [place] [address] 18 Feb, 2012 [facility] [address] [id number] [address] [place] [address], [place] [address] 17 Feb, 2012 [facility] [address] [id number] [address] [place] [address], [place] [address] Feb, [facility] [address] [id number] [address] [place] [address] Feb, IMMUNIZATIONS No Known Immunizations SOCIAL HISTORY [...]
--- OUTSIDE RECORDS SUMMARY | 2020-06-17 08:44 | XMS REPORT ---
Author Author Barrie BUSTILLO Organization [facility] Address [address] [place] [address] Care Team Providers Care Senior Internet Sales Consultant Name Role Phone BARRIE BUSTILLO Unavailable PROBLEMS Type Condition ICD9-CM Code FXT21-EE Code Onset Dates Condition S tatus SNOMED Code Problem Diabetes type 2, controlled E11.9 Ac tive 05200934 Problem Essential hypertension I10 Active 83383317 Problem Primary insomnia F51.01 Active 397 2004 Problem Obstructive sleep apnea G47.33 Active 52445719 Problem Urinary hesitancy R39.11 Active 59 50317 Problem Hesitancy of micturition R39.11 Activ e 5603012 Problem Benign prostatic hyperplasia with lower urinary tract symptoms N40.1 Active 912956628 Problem Controlled type 2 diabetes m ellitus without complication, without long- term current use of insulin E11.9 Active 093805078 Problem Mood disorder F39 Active 626888 05 Problem Acute superficial venous thrombosis of left lower extremit y I82.812 Active 41827629902834479 Problem Panlobular emphysema J43.1 Active 4607847 Problem 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.1 Active 757998331 Problem 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 Acti ve 72721629 Problem Arthritis M19.90 Active 4640579 Problem Uncontrolled type 2 diabetes mellitus with hyperglycemia E11.65 Active 000836267 Problem EMIR (obstructive sleep apnea) G47.33 Active 66731985 ALLERGIES No Information ENCOUNTERS Encounter Location Date Diagnosis [facility] [address] [id number] [place] [address] March, [facility] [address] [id number] [place] [address] 07 Dec, 2019 Moderate episode of recurrent major depr essive disorder F33.1 [facility] [address] [id number] [place] [address] 04 Dec, 2019 Moderate episode of recurrent major depr essive disorder F33.1 [facility] [address] [address] Dec, Moderate episode of recurrent major depr essive disorder F33.1 [facility] [address] [address] Nov, Panlobular emphysema J43.1 ; Mood disord er F39 and Controlled type 2 diabetes mellitus without complication, without long-term current use of insulin E11.9 [place] [address] [address] Nov, [place] [address] [address] Nov, Increased sputum production R09.3 and OS A (obstructive sleep apnea) G47.33 [place] [address] [address] Oct, [place] [address] [address] Sep, [facility] [address] [address] Sep, [place] [address] [address] Sep, [place] [address] [address] Aug, Moderate episode of recurrent major depr essive disorder F33.1 [place] [address] [address] Aug, Moderate episode of recurrent major depr essive disorder F33.1 [place] [address] [address] Aug, Moderate episode of recurrent major depr essive disorder F33.1 [place] [address] [address] Jul, [facility] [address] [address] Jul, Foot callus L84 ; Uncontrolled type 2 di abetes mellitus with hyperglycemia E11.65 ; Arthritis M19.90 ; Encounter for immunization Z23 ; Rib pain on right side R07.81 and Lumbar pain M54.5 [place] [address] [address] Jul, [place] [address] [address] Jun, [place] [address] [address] Jun, [place] [address] [address] Jun, Callus of foot L84 [place] [address] [address] Jun, [place] [address] [address] Apr, Exercise counseling Z71.82 [place] [address] [address] March, Moderate episode of recurrent major depr essive disorder F33.1 [place] [address] [address] March, Moderate episode of recurrent major depr essive disorder F33.1 [place] [address] [address] March, Exercise counseling Z71.82 [place] [address] [address] March, [place] [address] [address] March, Exercise counseling Z71.82 [place] [address] [address] March, Right otitis media with effusion H65.91 ; 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 and Diabetes type 2, controlled E11.9 [place] [address] [address] March, Moderate episode of recurrent major depr essive disorder F33.1 [place] [address] [address] March, Exercise counseling Z71.82 [place] [address] [address] March, Exercise counseling Z71.82 [place] [address] [address] March, Callus of foot L84 [place] [address] [address] Feb, Moderate episode of recurrent major depr essive disorder F33.1 [place] [address] [address] Feb, [place] [address] [address] Feb, Moderate episode of recurrent major depr essive disorder F33.1 [place] [address] [address] Feb, Diabetes type 2, controlled E11.9 and Es sential hypertension I10 [place] [address] [address] Jan, [place] [address] [address] Jan, Callus of foot L84 [place] [address] [address] Jan, Moderate episode of recurrent major depr essive disorder F33.1 [place] [address] [address] Jan, Moderate episode of recurrent major depr essive disorder F33.1 [place] [address] [address] Dec, Moderate episode of recurrent major depr essive disorder F33.1 [place] [address] [address] 11 Dec, 2018 Candidiasis of the esophagus B37.81 [place] [address] [address] 08 Dec, 2018 [facility] [address] [facility] [id number] [place] [address] 04 Dec, 2018 Fecal occult blood test posi tive R19.5 and Anemia, unspecified type D64.9 [place] [address] [address] Nov, Stool color black K92.1 [place] [address] [address] Nov, Stool color black K92.1 [place] [address] [address] Nov, Stool color black K92.1 [place] [address] [address] Nov, [place] [address] [address] Nov, Moderate episode of recurrent major depr essive disorder F33.1 [place] [address] [address] Oct, Moderate episode of recurrent major depr essive disorder F33.1 [place] [address] [address] 18 Oct, 2018 Callus of foot L84 and Controlled type 2 diabetes mellitus without complication, without long-term current use of insulin E11.9 [place] [address] [address] 10 Oct, 2018 Moderate episode of recurrent major depr essive disorder F33.1 [place] [address] [address] 17 Aug, 2018 Mood disorder F39 [place] [address] [address] 05 Aug, 2018 Encounter for immunization Z23 [place] [address] [address] Jul, Moderate episode of recurrent major depr essive disorder F33.1 [place] [address] [address] Jul, Moderate episode of recurrent major depr essive disorder F33.1 [place] [address] [address] May, [place] [address] [address] May, Moderate episode of recurrent major depr essive disorder F33.1 [place] [address] [address] May, Moderate episode of recurrent major depr essive disorder F33.1 [place] [address] [address] Apr, Benign prostatic hyperplasia with lower urinary tract symptoms N40.1 and Hesitancy of micturition R39.11 [place] [address] [address] Apr, Moderate episode of recurrent major depr essive disorder F33.1 [place] [address] [address] Apr, Unspecified mood [affective] disorder F3 9 and Primary insomnia F51.01 [place] [address] [address] Apr, Primary insomnia F51.01 [place] [address] [address] March, Foot callus L84 [place] [address] [address] Feb, Medicare annual wellness visit, initial Z00.00 [place] [address] [address] Feb, Acute superficial venous thrombosis of l eft lower extremity I82.812 [facility] [address] [address] Feb, [facility] [address] [address] Feb, [facility] [address] [address] Feb, Acute superficial venous thrombosis of l eft lower extremity I82.812 [facility] [address] [address] Feb, [facility] [address] [facility] [id number] [address] [place] [address] Feb, Other specified soft tissue disorders M79.89 and Pain in left leg M79.605 [place] [address] [address] Jan, Obstructive sleep apnea G47.33 [place] [address] [address] Dec, Obstructive sleep apnea G47.33 and Mood disorder F39 [place] [address] [address] Dec, [facility] [address] [address] Dec, [place] [address] [address] Nov, Diabetes type 2, controlled E11.9 [place] [address] [address] Nov, Encounter for immunization Z23 [place] [address] [address] Nov, Primary insomnia F51.01 [place] [address] [address] Oct, Medicare annual wellness visit, subseque nt Z00.00 and Mood disorder F39 [facility] [address] [place] [id number] [place] [address] Sep, Mood disorder F39 [facility] [address] [address] Aug, Primary insomnia F51.01 and Urinary hesi tancy R39.11 [facility] [address] [address] Aug, Primary insomnia F51.01 [facility] [address] [address] 07 Jul, 2017 Diabetes type 2, controlled E11.9 ; Prim ju insomnia F51.01 and Mood disorder F[address] [facility] [id number] [id number] Jun, Mood disorder F39 [facility] [address] [id number] [place] [id number] Jun, [place] [address] [address] May, Nightmares F51.5 [place] [address] [address] May, Cognitive complaints R41.9 ; Unspecified mood [affective] disorder F39 and Primary insomnia F51.01 [place] [address] [address] Apr, Mood disorder F39 and Primary insomnia F 51.01 [facility] [address] [address] Apr, Cognitive complaints R41.9 and Unspecifi ed mood [affective] disorder F39 [place] [address] [address] Apr, Cognitive complaints R41.9 and Unspecifi ed mood [affective] disorder F39 [facility] [address] [address] March, [place] [address] [address] March, Diabetes type 2, controlled E11.9 and Es sential hypertension I10 [place] [address] [address] March, Primary insomnia F51.01 ; Diabetes type 2, controlled E11.9 and Pain in right shoulder M25.511 [place] [address] [address] March, Cognitive complaints R41.9 and Unspecifi ed mood [affective] disorder F39 [place] [address] [address] Feb, 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 [place] [address] [address] Jan, [place] [address] [address] Jan, [place] [address] [address] Dec, Diabetes type 2, controlled E11.9 ; Hype rtension, benign I10 and Mood disorder F39 [place] [address] [address] 08 Dec, 2016 Medicare annual wellness visit, initial Z00.[address] [address] Nov, Medicare welcome exam Z00.00 ; Encounter for immunization Z23 ; Medicare annual wellness visit, initial Z00.00 and Medicare annual wellness visit, subsequent Z00.00 [place] [address] [address] Oct, [place] [address] [address] Sep, [place] [address] [address] Aug, Encounter for immunization Z23 and Callu s L84 [place] [address] [id number] [place] [address] 07 Aug, 2016 [facility] [address] [place] [id number] [place] [address] Jul, Diabetes type 2, controlled E11.9 [facility] [address] [facility] [place] [address] Jul, Diabetes type 2, controlled E11.9 [facility] [address] [place] [id number] [place] [address] Jun, [facility] [address] [place] [id number] [place] [address] Jun, Hypertension, benign I10 ; Mood disorder F39 and Diabetes type 2, controlled E11.9 [facility] [address] [place] [id number] [place] [address] Jun, Mood disorder F39 [facility] [address] [address] May, [facility] [address] [place] [id number] [place] [address] May, Mood disorder F39 [place] [address] [address] May, Mood disorder F39 [facility] [address] [place] [id number] [place] [address] Apr, Controlled type 2 diabetes mellitus with out complication, without long-term current use of insulin E11.9 ; Essential hypertension I10 and Pain in right shoulder M25.511 [facility] [address] [place] [id number] [place] [address] Apr, Mood disorder F39 [facility] [address] [place] [id number] [place] [address] Apr, Pre-op evaluation Z01.818 [facility] [address] [place] [id number] [place] [address] March, Mood disorder F39 [facility] [address] [address] Feb, [facility] [address] [address] Feb, Shoulder pain, right M25.511 [facility] [address] [address] Feb, Shoulder pain, right M25.511 [facility] [address] [address] Feb, Shoulder pain, right M25.511 [facility] [address] [address] Feb, Shoulder pain, right M25.511 [facility] [address] [address] Jan, Shoulder pain, right M25.511 [facility] [address] [address] Jan, Shoulder pain, right M25.511 [facility] [address] [address] Jan, [facility] [address] [address] 14 Jan, 2016 Diabetes type 2, controlled E11.9 [place] [address] [address] Jan, Shoulder pain, right M25.511 ; Diabetes mellitus without mention of complication, type II or unspecified type, not stated as uncontrolled 250.00 and Diabetes type 2, controlled E11.9 [facility] [address] [address] Jan, [facility] [address] [address] Jan, [facility] [address] [address] Dec, [place] [address] [address] Oct, Callus of foot L84 [facility] [address] [address] Oct, Anxiety F41.9 ; Callus of foot L84 and D ysuria R30.0 [facility] [address] [address] Sep, Diabetes mellitus without mention of com plication, type II or unspecified type, not stated as uncontrolled 250.00 [facility] [address] [address] Aug, Diabetes mellitus without mention of com plication, type II or unspecified type, not stated as uncontrolled 250.00 [facility] [address] [address] Jul, [facility] [address] [address] Jul, [facility] [address] [address] Jul, Diabetes mellitus without mention of com plication, type II or unspecified type, not stated as uncontrolled 250.00 ; Essential hypertension, benign 401.1 and Anxiety state, unspecified 300.00 [facility] [address] [address] Jul, [facility] [address] [address] Jun, [facility] [address] [address] Jun, [facility] [address] [address] May, [facility] [address] [address] May, [facility] [address] [address] Apr, [facility] [address] [address] Apr, Mood disorder 296.90 [facility] [address] [id number] [place] [address] March, [facility] [address] [id number] [place] [address] Feb, [facility] [address] [id number] [place] [address] Feb, [facility] [address] [id number] [place] [address] Jan, [facility] [address] [id number] [place] [address] Jan, [facility] [address] [id number] [place] [address] Jan, [facility] [address] [id number] [place] [address] Jan, [facility] [address] [id number] [place] [address] Jan, [facility] [address] [id number] [place] [address] Jan, [facility] [address] [id number] [place] [address] Jan, [facility] [address] [id number] [place] [address] Jan, [facility] [address] [id number] [place] [address] Dec, [facility] [address] [id number] [place] [address] Dec, [facility] [address] [id number] [place] [address] Nov, [facility] [address] [id number] [place] [address] Nov, [facility] [address] [id number] [place] [address] Nov, [facility] [address] [id number] [place] [address] Nov, [facility] [address] [id number] [place] [address] Oct, [facility] [address] [id number] [place] [address] Oct, [facility] [address] [id number] [place] [address] Oct, [facility] [address] [id number] [place] [address] Oct, [facility] [address] [id number] [place] [address] Oct, [facility] [address] [id number] [place] [address] Oct, [facility] [address] [id number] [place] [address] Oct, [facility] [address] [id number] [place] [address] Oct, [facility] [address] [id number] [place] [address] Oct, [facility] [address] [id number] [place] [address] Oct, [facility] [address] [id number] [place] [address] Sep, [facility] [address] [id number] [place] [address] Sep, [facility] [address] [id number] [place] [address] Sep, [facility] [address] [id number] [place] [address] Sep, [facility] [address] [id number] [place] [address] Sep, [facility] [address] [id number] [place] [address] Sep, [facility] [address] [facility] [id number] [place] [address] Aug, [facility] [address] [id number] [place] [address] Aug, [facility] [address] [id number] [place] [address] Jul, [facility] [address] [id number] [place] [address] Jul, [facility] [address] [id number] [place] [address] Jun, [facility] [address] [id number] [place] [address] Jun, [facility] [address] [id number] [place] [address] May, [facility] [address] [id number] [place] [address] May, [facility] [address] [id number] [place] [address] Apr, [facility] [address] [id number] [place] [address] Apr, [facility] [address] [id number] [place] [address] Apr, [facility] [address] [id number] [place] [address] Apr, [facility] [address] [id number] [place] [address] March, [facility] [address] [id number] [place] [address] March, [facility] [address] [id number] [place] [address] Jan, [facility] [address] [id number] [place] [address] Jan, [facility] [address] [id number] [place] [address] Jan, [facility] [address] [id number] [place] [address] Jan, [facility] [address] [id number] [place] [address] Jan, [facility] [address] [id number] [place] [address] Jan, [facility] [address] [id number] [place] [address] Dec, [facility] [address] [id number] [place] [address] Dec, [facility] [address] [id number] [place] [address] Oct, [facility] [address] [id number] [place] [address] Oct, [facility] [address] [id number] [place] [address] Oct, [facility] [address] [id number] [place] [address] Oct, [facility] [address] [id number] [place] [address] Jul, [facility] [address] [id number] [place] [address] Jul, [facility] [address] [id number] [place] [address] Jul, [facility] [address] [id number] [place] [address] Jun, [facility] [address] [id number] [place] [address] Jun, [facility] [address] [id number] [place] [address] May, [facility] [address] [id number] [place] [address] May, [facility] [address] [id number] [place] [address] March, [facility] [address] [id number] [place] [address] March, [facility] [address] [id number] [place] [address] Feb, [facility] [address] [id number] [place] [address] Feb, [facility] [address] [id number] [place] [address] Jan, [facility] [address] [id number] [place] [address] Dec, [facility] [address] [id number] [place] [address] Dec, [facility] [id number] [place] [address] Dec, [facility] [id number] [place] [address] Dec, [facility] [address] [id number] [place] [address] Dec, [facility] [address] [id number] [place] [address] Nov, [facility] [address] [id number] [place] [address] Oct, [facility] [address] [id number] [place] [address] Oct, [facility] [address] [id number] [place] [address] Aug, [facility] [id number] [place] [address] Aug, [facility] [address] [id number] [place] [address] Aug, [facility] [id number] [place] [address] Aug, [facility] [address] [id number] [place] [address] Aug, [facility] [id number] [place] [address] Jul, [facility] [address] [id number] [place] [address] Jul, [facility] [id number] [place] [address] Jun, [facility] [address] [id number] [place] [address] Jun, [facility] [id number] [place] [address] May, [facility] [address] [id number] [place] [address] May, [facility] [id number] [place] [address] May, [facility] [id number] [place] [address] Apr, [facility] [id number] [place] [address] Apr, [facility] [id number] [place] [address] March, [facility] [id number] [place] [address] March, [facility] [id number] [place] [address] Feb, [facility] [id number] [place] [address] Feb, [facility] [id number] [place] [address] Feb, [facility] [id number] [place] [address] Feb, IMMUNIZATIONS No Known Immunizations SOCIAL HISTORY Never Assessed REASON FOR VISIT PLAN OF CARE VITAL SIGNS Height 71 in 2014-01-11 Weight 259 lbs 2014-01-11 Temperature 98.9 degrees Fahrenheit 2014-01-11 Heart Rate 76 bpm 2014-01-11 Respiratory Rate 18 2014-01-11 Blood pressure systolic 128 mmHg 2014-01-11 Blood pressure diastolic 70 mmHg 2014-01-11 MEDICATIONS Unknown Medications RESULTS No Results PROCEDURES [...]
--- OUTSIDE RECORDS SUMMARY | 2020-06-17 08:44 | XMS REPORT ---
Author Author Barrie BUSTILLO Organization [facility] Address [address] [place] [address] Care Team Providers Care Direct Service Worker Name Role Phone BARRIE BUSTILLO Unavailable PROBLEMS Type Condition ICD9-CM Code GTD25-TE Code Onset Dates Condition S tatus SNOMED Code Problem Diabetes type 2, controlled E11.9 Ac tive 69796568 Problem Essential hypertension I10 Active 07851526 Problem Primary insomnia F51.01 Active 397 2004 Problem Obstructive sleep apnea G47.33 Active 00500059 Problem Urinary hesitancy R39.11 Active 59 72039 Problem Hesitancy of micturition R39.11 Activ e 7239833 Problem Benign prostatic hyperplasia with lower urinary tract symptoms N40.1 Active 047219206 Problem Controlled type 2 diabetes m ellitus without complication, without long- term current use of insulin E11.9 Active 875098656 Problem Mood disorder F39 Active 986065 05 Problem Acute superficial venous thrombosis of left lower extremit y I82.812 Active [id number] Problem Panlobular emphysema J43.1 Active 3039162 Problem 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.1 Active 392824614 Problem 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 Acti ve 11144365 Problem Arthritis M19.90 Active 9500547 Problem Uncontrolled type 2 diabetes mellitus with hyperglycemia E11.65 Active 295144152 Problem EMIR (obstructive sleep apnea) G47.33 Active 29123346 ALLERGIES No Information ENCOUNTERS Encounter Location Date Diagnosis [facility] [address] [id number] [place] [address] March, [facility] [address] [id number] [place] [address] 07 Dec, 2019 Moderate episode of recurrent major depr essive disorder F33.1 [facility] [address] [id number] [place] [address] 04 Dec, 2019 Moderate episode of recurrent major depr essive disorder F33.1 [facility] [address] [address] Dec, Moderate episode of recurrent major depr essive disorder F33.1 [facility] [address] [address] Nov, Panlobular emphysema J43.1 ; Mood disord er F39 and Controlled type 2 diabetes mellitus without complication, without long-term current use of insulin E11.9 [facility] [address] [address] Nov, [place] [address] [address] Nov, Increased sputum production R09.3 and OS A (obstructive sleep apnea) G47.33 [facility] [address] [address] Oct, [place] [address] [address] Sep, [facility] [address] [address] Sep, [place] [address] [address] Sep, [place] [address] [address] Aug, Moderate episode of recurrent major depr essive disorder F33.1 [place] [address] [address] Aug, Moderate episode of recurrent major depr essive disorder F33.1 [facility] [address] [address] Aug, Moderate episode of recurrent major depr essive disorder F33.1 [place] [address] [address] Jul, [facility] [address] [address] Jul, Foot callus L84 ; Uncontrolled type 2 di abetes mellitus with hyperglycemia E11.65 ; Arthritis M19.90 ; Encounter for immunization Z23 ; Rib pain on right side R07.81 and Lumbar pain M54.5 [place] [address] [address] Jul, [place] [address] [address] Jun, [place] [address] [address] Jun, [place] [address] [address] Jun, Callus of foot L84 [place] [address] [address] Jun, [place] [address] [address] Apr, Exercise counseling Z71.82 [facility] [address] [address] March, Moderate episode of recurrent major depr essive disorder F33.1 [place] [address] [address] March, Moderate episode of recurrent major depr essive disorder F33.1 [facility] [address] [address] March, Exercise counseling Z71.82 [facility] [address] [address] March, [place] [address] [address] March, Exercise counseling Z71.82 [place] [address] [address] March, Right otitis media with effusion H65.91 ; 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 and Diabetes type 2, controlled E11.9 [facility] [address] [address] March, Moderate episode of recurrent major depr essive disorder F33.1 [place] [address] [address] March, Exercise counseling Z71.82 [place] [address] [address] March, Exercise counseling Z71.82 [place] [address] [address] March, Callus of foot L84 [place] [address] [address] Feb, Moderate episode of recurrent major depr essive disorder F33.1 [place] [address] [address] Feb, [place] [address] [address] Feb, Moderate episode of recurrent major depr essive disorder F33.1 [place] [address] [address] Feb, Diabetes type 2, controlled E11.9 and Es sential hypertension I10 [place] [address] [address] Jan, [place] [address] [address] Jan, Callus of foot L84 [place] [address] [address] Jan, Moderate episode of recurrent major depr essive disorder F33.1 [place] [address] [address] Jan, Moderate episode of recurrent major depr essive disorder F33.1 [place] [address] [address] Dec, Moderate episode of recurrent major depr essive disorder F33.1 [place] [address] [address] 11 Dec, 2018 Candidiasis of the esophagus B37.81 [place] [address] [address] 08 Dec, 2018 [facility] [address] [facility] [id number] [address] [place] [address] 04 Dec, 2018 Fecal occult blood test posi tive R19.5 and Anemia, unspecified type D64.9 [place] [address] [address] Nov, Stool color black K92.1 [place] [address] [address] Nov, Stool color black K92.1 [place] [address] [address] Nov, Stool color black K92.1 [place] [address] [address] Nov, [place] [address] [address] Nov, Moderate episode of recurrent major depr essive disorder F33.1 [place] [address] [address] Oct, Moderate episode of recurrent major depr essive disorder F33.1 [place] [address] [address] 18 Oct, 2018 Callus of foot L84 and Controlled type 2 diabetes mellitus without complication, without long-term current use of insulin E11.9 [place] [address] [address] 10 Oct, 2018 Moderate episode of recurrent major depr essive disorder F33.1 [place] [address] [address] 17 Aug, 2018 Mood disorder F39 [place] [address] [address] 05 Aug, 2018 Encounter for immunization Z23 [place] [address] [address] Jul, Moderate episode of recurrent major depr essive disorder F33.1 [place] [address] [address] Jul, Moderate episode of recurrent major depr essive disorder F33.1 [place] [address] [address] May, [place] [address] [address] May, Moderate episode of recurrent major depr essive disorder F33.1 [place] [address] [address] May, Moderate episode of recurrent major depr essive disorder F33.1 [place] [address] [address] Apr, Benign prostatic hyperplasia with lower urinary tract symptoms N40.1 and Hesitancy of micturition R39.11 [place] [address] [address] Apr, Moderate episode of recurrent major depr essive disorder F33.1 [place] [address] [address] Apr, Unspecified mood [affective] disorder F3 9 and Primary insomnia F51.01 [place] [address] [address] Apr, Primary insomnia F51.01 [place] [address] [address] March, Foot callus L84 [place] [address] [address] Feb, Medicare annual wellness visit, initial Z00.00 [place] [address] [address] Feb, Acute superficial venous thrombosis of l eft lower extremity I82.812 [facility] [address] [address] Feb, [facility] [address] [address] Feb, [facility] [address] [address] Feb, Acute superficial venous thrombosis of l eft lower extremity I82.812 [facility] [address] [address] Feb, [facility] [address] [facility] [id number] [address] [place] [address] Feb, Other specified soft tissue disorders M79.89 and Pain in left leg M79.605 [place] [address] [address] Jan, Obstructive sleep apnea G47.33 [place] [address] [address] Dec, Obstructive sleep apnea G47.33 and Mood disorder F39 [place] [address] [address] Dec, [facility] [address] [address] Dec, [place] [address] [address] Nov, Diabetes type 2, controlled E11.9 [place] [address] [address] Nov, Encounter for immunization Z23 [place] [address] [address] Nov, Primary insomnia F51.01 [place] [address] [address] Oct, Medicare annual wellness visit, subseque nt Z00.00 and Mood disorder F39 [facility] [address] [place] [id number] [place] [address] Sep, Mood disorder F39 [facility] [address] [address] Aug, Primary insomnia F51.01 and Urinary hesi tancy R39.11 [facility] [address] [address] Aug, Primary insomnia F51.01 [facility] [address] [address] 07 Jul, 2017 Diabetes type 2, controlled E11.9 ; Prim ju insomnia F51.01 and Mood disorder F39 [facility] [id number] [id number] Jun, Mood disorder F39 [facility] [address] [id number] [place] [id number] Jun, [place] [address] [address] May, Nightmares F51.5 [place] [address] [address] May, Cognitive complaints R41.9 ; Unspecified mood [affective] disorder F39 and Primary insomnia F51.01 [place] [address] [address] Apr, Mood disorder F39 and Primary insomnia F 51.01 [facility] [address] [address] Apr, Cognitive complaints R41.9 and Unspecifi ed mood [affective] disorder F39 [place] [address] [address] Apr, Cognitive complaints R41.9 and Unspecifi ed mood [affective] disorder F39 [facility] [address] [address] March, [place] [address] [address] March, Diabetes type 2, controlled E11.9 and Es sential hypertension I10 [place] [address] [address] March, Primary insomnia F51.01 ; Diabetes type 2, controlled E11.9 and Pain in right shoulder M25.511 [place] [address] [address] March, Cognitive complaints R41.9 and Unspecifi ed mood [affective] disorder F39 [place] [address] [address] Feb, 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 [place] [address] [address] Jan, [place] [address] [address] Jan, [place] [address] [address] Dec, Diabetes type 2, controlled E11.9 ; Hype rtension, benign I10 and Mood disorder F39 [place] [address] [address] 08 Dec, 2016 Medicare annual wellness visit, initial Z00.[address] [address] Nov, Medicare welcome exam Z00.00 ; Encounter for immunization Z23 ; Medicare annual wellness visit, initial Z00.00 and Medicare annual wellness visit, subsequent Z00.00 [place] [address] [address] Oct, [place] [address] [address] Sep, [place] [address] [address] Aug, Encounter for immunization Z23 and Callu s L84 [place] [address] [id number] [place] [address] 07 Aug, 2016 [facility] [address] [place] [id number] [place] [address] Jul, Diabetes type 2, controlled E11.9 [facility] [address] [id number] [place] [address] Jul, Diabetes type 2, controlled E11.9 [facility] [address] [place] [id number] [place] [address] Jun, [facility] [address] [place] [id number] [place] [address] Jun, Hypertension, benign I10 ; Mood disorder F39 and Diabetes type 2, controlled E11.9 [facility] [address] [place] [id number] [place] [address] Jun, Mood disorder F39 [facility] [address] [address] May, [facility] [address] [place] [id number] [place] [address] May, Mood disorder F39 [place] [address] [address] May, Mood disorder F39 [facility] [address] [place] [id number] [place] [address] Apr, Controlled type 2 diabetes mellitus with out complication, without long-term current use of insulin E11.9 ; Essential hypertension I10 and Pain in right shoulder M25.511 [facility] [address] [place] [id number] [place] [address] Apr, Mood disorder F39 [facility] [address] [place] [id number] [place] [address] Apr, Pre-op evaluation Z01.818 [facility] [address] [place] [id number] [place] [address] March, Mood disorder F39 [facility] [address] [address] Feb, [facility] [address] [address] Feb, Shoulder pain, right M25.511 [facility] [address] [address] Feb, Shoulder pain, right M25.511 [facility] [address] [address] Feb, Shoulder pain, right M25.511 [facility] [address] [address] Feb, Shoulder pain, right M25.511 [facility] [address] [address] Jan, Shoulder pain, right M25.511 [facility] [address] [address] Jan, Shoulder pain, right M25.511 [facility] [address] [address] Jan, [facility] [address] [address] 14 Jan, 2016 Diabetes type 2, controlled E11.9 [place] [address] [address] Jan, Shoulder pain, right M25.511 ; Diabetes mellitus without mention of complication, type II or unspecified type, not stated as uncontrolled 250.00 and Diabetes type 2, controlled E11.9 [facility] [address] [address] Jan, [facility] [address] [address] Jan, [facility] [address] [address] Dec, [place] [address] [address] Oct, Callus of foot L84 [facility] [address] [address] Oct, Anxiety F41.9 ; Callus of foot L84 and D ysuria R30.0 [facility] [address] [address] Sep, Diabetes mellitus without mention of com plication, type II or unspecified type, not stated as uncontrolled 250.00 [facility] [address] [address] Aug, Diabetes mellitus without mention of com plication, type II or unspecified type, not stated as uncontrolled 250.00 [facility] [address] [address] Jul, [facility] [address] [address] Jul, [facility] [address] [address] Jul, Diabetes mellitus without mention of com plication, type II or unspecified type, not stated as uncontrolled 250.00 ; Essential hypertension, benign 401.1 and Anxiety state, unspecified 300.00 [facility] [address] [address] Jul, [facility] [address] [address] Jun, [facility] [address] [address] Jun, [facility] [address] [address] May, [facility] [address] [address] May, [facility] [address] [address] Apr, [facility] [address] [address] Apr, Mood disorder 296.90 [facility] [address] [id number] [place] [address] March, [facility] [address] [id number] [place] [address] Feb, [facility] [address] [id number] [place] [address] Feb, [facility] [address] [id number] [place] [address] Jan, [facility] [address] [id number] [place] [address] Jan, [facility] [address] [id number] [place] [address] Jan, [facility] [address] [id number] [place] [address] Jan, [facility] [address] [id number] [place] [address] Jan, [facility] [address] [id number] [place] [address] Jan, [facility] [address] [id number] [place] [address] Jan, [facility] [address] [id number] [place] [address] Jan, [facility] [address] [id number] [place] [address] Dec, [facility] [address] [id number] [place] [address] Dec, [facility] [address] [id number] [place] [address] Nov, [facility] [address] [id number] [place] [address] Nov, [facility] [address] [id number] [place] [address] Nov, [facility] [address] [id number] [place] [address] Nov, [facility] [address] [id number] [place] [address] Oct, [facility] [address] [id number] [place] [address] Oct, [facility] [address] [id number] [place] [address] Oct, [facility] [address] [id number] [place] [address] Oct, [facility] [address] [id number] [place] [address] Oct, [facility] [address] [id number] [place] [address] Oct, [facility] [address] [id number] [place] [address] Oct, [facility] [address] [id number] [place] [address] Oct, [facility] [address] [id number] [place] [address] Oct, [facility] [address] [id number] [place] [address] Oct, [facility] [address] [id number] [place] [address] Sep, [facility] [address] [id number] [place] [address] Sep, [facility] [address] [id number] [place] [address] Sep, [facility] [address] [id number] [place] [address] Sep, [facility] [address] [id number] [place] [address] Sep, [facility] [address] [id number] [place] [address] Sep, [facility] [address] [facility] [id number] [place] [address] Aug, [facility] [address] [id number] [place] [address] Aug, [facility] [address] [id number] [place] [address] Jul, [facility] [address] [id number] [place] [address] Jul, [facility] [address] [id number] [place] [address] Jun, [facility] [address] [id number] [place] [address] Jun, [facility] [address] [id number] [place] [address] May, [facility] [address] [id number] [place] [address] May, [facility] [address] [id number] [place] [address] Apr, [facility] [address] [id number] [place] [address] Apr, [facility] [address] [id number] [place] [address] Apr, [facility] [address] [id number] [place] [address] Apr, [facility] [address] [id number] [place] [address] March, [facility] [address] [id number] [place] [address] March, [facility] [address] [id number] [place] [address] Jan, [facility] [address] [id number] [place] [address] Jan, [facility] [address] [id number] [place] [address] Jan, [facility] [address] [id number] [place] [address] Jan, [facility] [address] [id number] [place] [address] Jan, [facility] [address] [id number] [place] [address] Jan, [facility] [address] [id number] [place] [address] Dec, [facility] [address] [id number] [place] [address] Dec, [facility] [address] [id number] [place] [address] Oct, [facility] [address] [id number] [place] [address] Oct, [facility] [address] [id number] [place] [address] Oct, [facility] [address] [id number] [place] [address] Oct, [facility] [address] [id number] [place] [address] Jul, [facility] [address] [id number] [place] [address] Jul, [facility] [address] [id number] [place] [address] Jul, [facility] [address] [id number] [place] [address] Jun, [facility] [address] [id number] [place] [address] Jun, [facility] [address] [id number] [place] [address] May, [facility] [address] [id number] [place] [address] May, [facility] [address] [id number] [place] [address] March, [facility] [address] [id number] [place] [address] March, [facility] [address] [id number] [place] [address] Feb, [facility] [address] [id number] [place] [address] Feb, [facility] [address] [id number] [place] [address] Jan, [facility] [address] [id number] [place] [address] Dec, [facility] [address] [id number] [place] [address] Dec, [facility] [id number] [place] [address] Dec, [facility] [id number] [place] [address] Dec, [facility] [address] [id number] [place] [address] Dec, [facility] [address] [id number] [place] [address] Nov, [facility] [address] [id number] [place] [address] Oct, [facility] [address] [id number] [place] [address] Oct, [facility] [address] [id number] [place] [address] Aug, [facility] [id number] [place] [address] Aug, [facility] [address] [id number] [place] [address] Aug, [facility] [id number] [place] [address] Aug, [facility] [address] [id number] [place] [address] Aug, [facility] [id number] [place] [address] Jul, [facility] [address] [id number] [place] [address] Jul, [facility] [id number] [place] [address] Jun, [facility] [address] [id number] [place] [address] Jun, [facility] [id number] [place] [address] May, [facility] [id number] [place] [address] May, [facility] [id number] [place] [address] May, [facility] [id number] [place] [address] Apr, [facility] [id number] [place] [address] Apr, [facility] [id number] [place] [address] March, [facility] [id number] [place] [address] March, [facility] [id number] [place] [address] Feb, [facility] [id number] [place] [address] Feb, [facility] [id number] [place] [address] Feb, [facility] [id number] [place] [address] Feb, IMMUNIZATIONS No Known Immunizations SOCIAL HISTORY Never Assessed REASON FOR VISIT PLAN OF CARE VITAL SIGNS MEDICATIONS Unknown Medications RESULTS No Results PROCEDURES Procedure Date Ordered Result Body Site COMPLETE CBC W/AUTO DIFF WBC January 18, 2014 ASSAY OF PSA, TOTAL January 18, 2014 GLYCATED HEMOGLOBIN TEST January 18, 2014 LIPID PANEL January 18, 2014 COMPREHEN METABOLIC PANEL January 18, 2014 VENIPUNCT, ROUTINE* January 18, 2014 INSTRUCTIONS MEDICATIONS ADMINISTERED No Known Medications MEDICAL [...]
--- OUTSIDE RECORDS SUMMARY | 2020-06-17 08:44 | XMS REPORT ---
Author Author Barrie BUSTILLO Organization [facility] Address [address] [place] [address] Care Team Providers Care Sand Mixer Machine Name Role Phone BARRIE BUSTILLO Unavailable PROBLEMS Type Condition ICD9-CM Code WSC72-DM Code Onset Dates Condition S tatus SNOMED Code Problem Diabetes type 2, controlled E11.9 Ac tive 02157930 Problem Essential hypertension I10 Active 46287236 Problem Primary insomnia F51.01 Active 397 2004 Problem Obstructive sleep apnea G47.33 Active 29563791 Problem Urinary hesitancy R39.11 Active 59 76934 Problem Hesitancy of micturition R39.11 Activ e 1387992 Problem Benign prostatic hyperplasia with lower urinary tract symptoms N40.1 Active 344716093 Problem Controlled type 2 diabetes m ellitus without complication, without long- term current use of insulin E11.9 Active 600965367 Problem Mood disorder F39 Active 405026 05 Problem Acute superficial venous thrombosis of left lower extremit y I82.812 Active [id number] Problem Panlobular emphysema J43.1 Active 3356682 Problem 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.1 Active 668951722 Problem 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 Acti ve 43648553 Problem Arthritis M19.90 Active 6266523 Problem Uncontrolled type 2 diabetes mellitus with hyperglycemia E11.65 Active 243038382 Problem EMIR (obstructive sleep apnea) G47.33 Active 31937577 ALLERGIES No Information ENCOUNTERS Encounter Location Date Diagnosis [facility] [address] [id number] [place] [address] March, [facility] [address] [id number] [place] [address] 07 Dec, 2019 Moderate episode of recurrent major depr essive disorder F33.1 [facility] [address] [id number] [place] [address] Dec, Moderate episode of recurrent major depr essive disorder F33.1 [facility] [address] [address] Dec, Moderate episode of recurrent major depr essive disorder F33.1 [facility] [address] [address] Nov, Panlobular emphysema J43.1 ; Mood disord er F39 and Controlled type 2 diabetes mellitus without complication, without long-term current use of insulin E11.9 [place] [address] [address] Nov, [place] [address] [address] Nov, Increased sputum production R09.3 and OS A (obstructive sleep apnea) G47.33 [place] [address] [address] Oct, [place] [address] [address] Sep, [facility] [address] [address] Sep, [place] [address] [address] Sep, [place] [address] [address] Aug, Moderate episode of recurrent major depr essive disorder F33.1 [place] [address] [address] Aug, Moderate episode of recurrent major depr essive disorder F33.1 [place] [address] [address] Aug, Moderate episode of recurrent major depr essive disorder F33.1 [place] [address] [address] Jul, [facility] [address] [address] Jul, Foot callus L84 ; Uncontrolled type 2 di abetes mellitus with hyperglycemia E11.65 ; Arthritis M19.90 ; Encounter for immunization Z23 ; Rib pain on right side R07.81 and Lumbar pain M54.5 [place] [address] [address] Jul, [place] [address] [address] Jun, [place] [address] [address] Jun, [place] [address] [address] Jun, Callus of foot L84 [place] [address] [address] Jun, [place] [address] [address] Apr, Exercise counseling Z71.82 [place] [address] [address] March, Moderate episode of recurrent major depr essive disorder F33.1 [place] [address] [address] March, Moderate episode of recurrent major depr essive disorder F33.1 [place] [address] [address] March, Exercise counseling Z71.82 [place] [address] [address] March, [place] [address] [address] March, Exercise counseling Z71.82 [place] [address] [address] March, Right otitis media with effusion H65.91 ; 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 and Diabetes type 2, controlled E11.9 [place] [address] [address] March, Moderate episode of recurrent major depr essive disorder F33.1 [place] [address] [address] March, Exercise counseling Z71.82 [place] [address] [address] March, Exercise counseling Z71.82 [place] [address] [address] March, Callus of foot L84 [place] [address] [address] Feb, Moderate episode of recurrent major depr essive disorder F33.1 [place] [address] [address] Feb, [place] [address] [address] Feb, Moderate episode of recurrent major depr essive disorder F33.1 [place] [address] [address] Feb, Diabetes type 2, controlled E11.9 and Es sential hypertension I10 [place] [address] [address] Jan, [place] [address] [address] Jan, Callus of foot L84 [place] [address] [address] Jan, Moderate episode of recurrent major depr essive disorder F33.1 [place] [address] [address] Jan, Moderate episode of recurrent major depr essive disorder F33.1 [place] [address] [address] Dec, Moderate episode of recurrent major depr essive disorder F33.1 [place] [address] [address] 11 Dec, 2018 Candidiasis of the esophagus B37.81 [place] [address] [address] 08 Dec, [address] [facility] [address] [facility] [id number] [address] [place] [address] 04 Dec, 2018 Fecal occult blood test posi tive R19.5 and Anemia, unspecified type D64.9 [place] [address] [address] Nov, Stool color black K92.1 [place] [address] [address] Nov, Stool color black K92.1 [place] [address] [address] Nov, Stool color black K92.1 [place] [address] [address] Nov, [place] [address] [address] Nov, Moderate episode of recurrent major depr essive disorder F33.1 [place] [address] [address] Oct, Moderate episode of recurrent major depr essive disorder F33.1 [place] [address] [address] 18 Oct, 2018 Callus of foot L84 and Controlled type 2 diabetes mellitus without complication, without long-term current use of insulin E11.9 [place] [address] [address] 10 Oct, 2018 Moderate episode of recurrent major depr essive disorder F33.1 [place] [address] [address] 17 Aug, 2018 Mood disorder F39 [place] [address] [address] 05 Aug, 2018 Encounter for immunization Z23 [place] [address] [address] Jul, Moderate episode of recurrent major depr essive disorder F33.1 [place] [address] [address] Jul, Moderate episode of recurrent major depr essive disorder F33.1 [place] [address] [address] May, [place] [address] [address] May, Moderate episode of recurrent major depr essive disorder F33.1 [place] [address] [address] May, Moderate episode of recurrent major depr essive disorder F33.1 [place] [address] [address] Apr, Benign prostatic hyperplasia with lower urinary tract symptoms N40.1 and Hesitancy of micturition R39.11 [place] [address] [address] Apr, Moderate episode of recurrent major depr essive disorder F33.1 [place] [address] [address] Apr, Unspecified mood [affective] disorder F3 9 and Primary insomnia F51.01 [place] [address] [address] Apr, Primary insomnia F51.01 [place] [address] [address] March, Foot callus L84 [place] [address] [address] Feb, Medicare annual wellness visit, initial Z00.00 [place] [address] [address] Feb, Acute superficial venous thrombosis of l eft lower extremity I82.812 [facility] [address] [address] Feb, [facility] [address] [address] Feb, [facility] [address] [address] Feb, Acute superficial venous thrombosis of l eft lower extremity I82.812 [facility] [address] [address] Feb, [facility] [address] [id number] [address] [place] [address] Feb, Other specified soft tissue disorders M79.89 and Pain in left leg M79.605 [place] [address] [address] Jan, Obstructive sleep apnea G47.33 [place] [address] [address] Dec, Obstructive sleep apnea G47.33 and Mood disorder F39 [place] [address] [address] Dec, [facility] [address] [address] Dec, [place] [address] [address] Nov, Diabetes type 2, controlled E11.9 [place] [address] [address] Nov, Encounter for immunization Z23 [place] [address] [address] Nov, Primary insomnia F51.01 [place] [address] [address] Oct, Medicare annual wellness visit, subseque nt Z00.00 and Mood disorder F39 [facility] [address] [place] [id number] [place] [address] Sep, Mood disorder F39 [facility] [address] [address] Aug, Primary insomnia F51.01 and Urinary hesi tancy R39.11 [facility] [address] [address] Aug, Primary insomnia F51.01 [facility] [address] [address] 07 Jul, 2017 Diabetes type 2, controlled E11.9 ; Prim ju insomnia F51.01 [address] Mood disorder F39 [facility] [address] [place] [id number] Jun, Mood disorder F39 [facility] [address] [id number] [place] [id number] Jun, [place] [address] [address] May, Nightmares F51.5 [place] [address] [address] May, Cognitive complaints R41.9 ; Unspecified mood [affective] disorder F39 and Primary insomnia F51.01 [place] [address] [address] Apr, Mood disorder F39 and Primary insomnia F 51.01 [facility] [address] [address] Apr, Cognitive complaints R41.9 and Unspecifi ed mood [affective] disorder F39 [place] [address] [address] Apr, Cognitive complaints R41.9 and Unspecifi ed mood [affective] disorder F39 [facility] [address] [address] March, [place] [address] [address] March, Diabetes type 2, controlled E11.9 and Es sential hypertension I10 [place] [address] [address] March, Primary insomnia F51.01 ; Diabetes type 2, controlled E11.9 and Pain in right shoulder M25.511 [place] [address] [address] March, Cognitive complaints R41.9 and Unspecifi ed mood [affective] disorder F39 [place] [address] [address] Feb, 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 [place] [address] [address] Jan, [place] [address] [address] Jan, [place] [address] [address] Dec, Diabetes type 2, controlled E11.9 ; Hype rtension, benign I10 and Mood disorder F39 [place] [address] [address] 08 Dec, 2016 Medicare annual wellness visit, initial Z00.[address] [address] Nov, Medicare welcome exam Z00.00 ; Encounter for immunization Z23 ; Medicare annual wellness visit, initial Z00.00 and Medicare annual wellness visit, subsequent Z00.00 [place] [address] [address] Oct, [place] [address] [address] Sep, [place] [address] [address] Aug, Encounter for immunization Z23 and Callu s L84 [place] [address] [id number] [place] [address] 07 Aug, 2016 [facility] [address] [place] [id number] [place] [address] Jul, Diabetes type 2, controlled E11.9 [facility] [address] [id number] [place] [address] Jul, Diabetes type 2, controlled E11.9 [facility] [address] [place] [id number] [place] [address] Jun, [facility] [address] [place] [id number] [place] [address] Jun, Hypertension, benign I10 ; Mood disorder F39 and Diabetes type 2, controlled E11.9 [facility] [address] [place] [id number] [place] [address] Jun, Mood disorder F39 [facility] [address] [address] May, [facility] [address] [place] [id number] [place] [address] May, Mood disorder F39 [place] [address] [address] May, Mood disorder F39 [facility] [address] [place] [id number] [place] [address] Apr, Controlled type 2 diabetes mellitus with out complication, without long-term current use of insulin E11.9 ; Essential hypertension I10 and Pain in right shoulder M25.511 [facility] [address] [place] [address] [id number] [place] [address] Apr, Mood disorder F39 [facility] [address] [place] [id number] [place] [address] Apr, Pre-op evaluation Z01.818 [facility] [address] [place] [id number] [place] [address] March, Mood disorder F39 [facility] [address] [address] Feb, [facility] [address] [address] Feb, Shoulder pain, right M25.511 [facility] [address] [address] Feb, Shoulder pain, right M25.511 [facility] [address] [address] Feb, Shoulder pain, right M25.511 [facility] [address] [address] Feb, Shoulder pain, right M25.511 [facility] [address] [address] Jan, Shoulder pain, right M25.511 [facility] [address] [address] Jan, Shoulder pain, right M25.511 [facility] [address] [address] Jan, [facility] [address] [address] 14 Jan, 2016 Diabetes type 2, controlled E11.9 [place] [address] [address] Jan, Shoulder pain, right M25.511 ; Diabetes mellitus without mention of complication, type II or unspecified type, not stated as uncontrolled 250.00 and Diabetes type 2, controlled E11.9 [facility] [address] [address] Jan, [facility] [address] [address] Jan, [facility] [address] [address] Dec, [place] [address] [address] Oct, Callus of foot L84 [facility] [address] [address] Oct, Anxiety F41.9 ; Callus of foot L84 and D ysuria R30.0 [facility] [address] [address] Sep, Diabetes mellitus without mention of com plication, type II or unspecified type, not stated as uncontrolled 250.00 [facility] [address] [address] Aug, Diabetes mellitus without mention of com plication, type II or unspecified type, not stated as uncontrolled 250.00 [facility] [address] [address] Jul, [facility] [address] [address] Jul, [facility] [address] [address] Jul, Diabetes mellitus without mention of com plication, type II or unspecified type, not stated as uncontrolled 250.00 ; Essential hypertension, benign 401.1 and Anxiety state, unspecified 300.00 [facility] [address] [address] Jul, [facility] [address] [address] Jun, [facility] [address] [address] Jun, [facility] [address] [address] May, [facility] [address] [address] May, [facility] [address] [address] Apr, [facility] [address] [address] Apr, Mood disorder 296.90 [facility] [address] [id number] [place] [address] March, [facility] [address] [id number] [place] [address] Feb, [facility] [address] [id number] [place] [address] Feb, [facility] [address] [id number] [place] [address] Jan, [facility] [address] [id number] [place] [address] Jan, [facility] [address] [id number] [place] [address] Jan, [facility] [address] [id number] [place] [address] Jan, [facility] [address] [id number] [place] [address] Jan, [facility] [address] [id number] [place] [address] Jan, [facility] [address] [id number] [place] [address] Jan, [facility] [address] [id number] [place] [address] Jan, [facility] [address] [id number] [place] [address] Dec, [facility] [address] [id number] [place] [address] Dec, [facility] [address] [id number] [place] [address] Nov, [facility] [address] [id number] [place] [address] Nov, [facility] [address] [id number] [place] [address] Nov, [facility] [address] [id number] [place] [address] Nov, [facility] [address] [id number] [place] [address] Oct, [facility] [address] [id number] [place] [address] Oct, [facility] [address] [id number] [place] [address] Oct, [facility] [address] [id number] [place] [address] Oct, [facility] [address] [id number] [place] [address] Oct, [facility] [address] [id number] [place] [address] Oct, [facility] [address] [id number] [place] [address] Oct, [facility] [address] [id number] [place] [address] Oct, [facility] [address] [id number] [place] [address] Oct, [facility] [address] [id number] [place] [address] Oct, [facility] [address] [id number] [place] [address] Sep, [facility] [address] [id number] [place] [address] Sep, [facility] [address] [id number] [place] [address] Sep, [facility] [address] [id number] [place] [address] Sep, [facility] [address] [id number] [place] [address] Sep, [facility] [address] [id number] [place] [address] Sep, [facility] [address] [facility] [id number] [place] [address] Aug, [facility] [address] [id number] [place] [address] Aug, [facility] [address] [id number] [place] [address] Jul, [facility] [address] [id number] [place] [address] Jul, [facility] [address] [id number] [place] [address] Jun, [facility] [address] [id number] [place] [address] Jun, [facility] [address] [id number] [place] [address] May, [facility] [address] [id number] [place] [address] May, [facility] [address] [id number] [place] [address] Apr, [facility] [address] [id number] [place] [address] Apr, [facility] [address] [id number] [place] [address] Apr, [facility] [address] [id number] [place] [address] Apr, [facility] [address] [id number] [place] [address] March, [facility] [address] [id number] [place] [address] March, [facility] [address] [id number] [place] [address] Jan, [facility] [address] [id number] [place] [address] Jan, [facility] [address] [id number] [place] [address] Jan, [facility] [address] [id number] [place] [address] Jan, [facility] [address] [id number] [place] [address] Jan, [facility] [address] [id number] [place] [address] Jan, [facility] [address] [id number] [place] [address] Dec, [facility] [address] [id number] [place] [address] Dec, [facility] [address] [id number] [place] [address] Oct, [facility] [address] [id number] [place] [address] Oct, [facility] [address] [id number] [place] [address] Oct, [facility] [address] [id number] [place] [address] Oct, [facility] [address] [id number] [place] [address] Jul, [facility] [address] [id number] [place] [address] Jul, [facility] [address] [id number] [place] [address] Jul, [facility] [address] [id number] [place] [address] Jun, [facility] [address] [id number] [place] [address] Jun, [facility] [address] [id number] [place] [address] May, [facility] [address] [id number] [place] [address] May, [facility] [address] [id number] [place] [address] March, [facility] [address] [id number] [place] [address] March, [facility] [address] [id number] [place] [address] Feb, [facility] [address] [id number] [place] [address] Feb, [facility] [address] [id number] [place] [address] Jan, [facility] [address] [id number] [place] [address] Dec, [facility] [address] [id number] [place] [address] Dec, [facility] [id number] [place] [address] Dec, [facility] [id number] [place] [address] Dec, [facility] [address] [id number] [place] [address] Dec, [facility] [address] [id number] [place] [address] Nov, [facility] [address] [id number] [place] [address] Oct, [facility] [address] [id number] [place] [address] Oct, [facility] [address] [facility] [place] [id number] [place] [address] Aug, [facility] [id number] [place] [address] Aug, [facility] [address] [facility] [place] [id number] [place] [address] Aug, [facility] [id number] [place] [address] Aug, [facility] [address] [facility] [place] [id number] [place] [address] Aug, [facility] [address] [facility] [place] [id number] [place] [address] Jul, [facility] [address] [facility] [place] [id number] [place] [address] Jul, [facility] [address] [facility] [place] [id number] [place] [address] Jun, [facility] [address] [facility] [place] [id number] [place] [address] Jun, [facility] [address] [facility] [place] [id number] [place] [address] May, [facility] [address] [facility] [place] [id number] [place] [address] May, [facility] [id number] [place] [address] May, [facility] [address] [facility] [place] [id number] [place] [address] Apr, [facility] [id number] [place] [address] Apr, [facility] [id number] [place] [address] March, [facility] [id number] [place] [address] March, [facility] [id number] [place] [address] Feb, [facility] [address] [facility] [place] [id number] [place] [address] Feb, [facility] [id number] [place] [address] Feb, [facility] [address] [facility] [place] [id number] [place] [address] Feb, IMMUNIZATIONS No Known Immunizations SOCIAL HISTORY Never Assessed REASON FOR VISIT Controlled meds PLAN OF CARE VITAL SIGNS MEDICATIONS Medication Instructions Dosage Frequency Start Date End Date Duration S dickson [place] 5-325 MG Orally every 6 hrs 1 tablet as needed 6h 29 Mar, 201 9 Active RESULTS No Results PROCEDURES No Known procedures [...]
--- OUTSIDE RECORDS SUMMARY | 2020-06-17 08:45 | XMS REPORT ---
Author Author Barrie BUSTILLO Organization [facility] Address [address] [place] [address] Care Team Providers Care Combustion Analyst Name Role Phone BARRIE BUSTILLO Unavailable PROBLEMS Type Condition ICD9-CM Code BRB80-JW Code Onset Dates Condition S tatus SNOMED Code Problem Diabetes type 2, controlled E11.9 Ac tive 65490594 Problem Essential hypertension I10 Active 70129469 Problem Primary insomnia F51.01 Active 397 2004 Problem Obstructive sleep apnea G47.33 Active 80968552 Problem Urinary hesitancy R39.11 Active 59 10411 Problem Hesitancy of micturition R39.11 Activ e 1499251 Problem Benign prostatic hyperplasia with lower urinary tract symptoms N40.1 Active 267492356 Problem Controlled type 2 diabetes m ellitus without complication, without long- term current use of insulin E11.9 Active 074434564 Problem Mood disorder F39 Active 128539 05 Problem Acute superficial venous thrombosis of left lower extremit y I82.812 Active [id number] Problem Panlobular emphysema J43.1 Active 1334426 Problem 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.1 Active 951946566 Problem 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 Acti ve 31151464 Problem Arthritis M19.90 Active 3633834 Problem Uncontrolled type 2 diabetes mellitus with hyperglycemia E11.65 Active 760861860 Problem EMIR (obstructive sleep apnea) G47.33 Active 43167290 ALLERGIES No Information ENCOUNTERS Encounter Location Date Diagnosis [facility] [address] [id number] [place] [address] March, [facility] [address] [id number] [place] [address] Jan, [facility] [address] [id number] [place] [address] Dec, Moderate episode of recurrent major depr essive disorder F33.1 [place] [address] [address] Dec, Moderate episode of recurrent major depr essive disorder F33.1 [place] [address] [place] [id number] Dec, Moderate episode of recurrent major depr essive disorder F33.1 [place] [address] [address] Nov, Panlobular emphysema J43.1 ; Mood disord er F39 and Controlled type 2 diabetes mellitus without complication, without long-term current use of insulin E11.9 [place] [address] [address] Nov, [place] [address] [address] Nov, Increased sputum production R09.3 and OS A (obstructive sleep apnea) G47.33 [place] [address] [address] Oct, [place] [address] [address] Sep, [place] [address] [address] Sep, [place] [address] [address] Sep, [place] [address] [address] Aug, Moderate episode of recurrent major depr essive disorder F33.1 [place] [address] [address] Aug, Moderate episode of recurrent major depr essive disorder F33.1 [place] [address] [address] Aug, Moderate episode of recurrent major depr essive disorder F33.1 [place] [address] [address] Jul, [place] [address] [address] Jul, Foot callus L84 ; Uncontrolled type 2 di abetes mellitus with hyperglycemia E11.65 ; Arthritis M19.90 ; Encounter for immunization Z23 ; Rib pain on right side R07.81 and Lumbar pain M54.5 [place] [address] [address] Jul, [place] [address] [address] Jun, [place] [address] [address] Jun, [place] [address] [address] Jun, Callus of foot L84 [place] [address] [address] Jun, [place] [address] [address] Apr, Exercise counseling Z71.82 [place] [address] [address] March, Moderate episode of recurrent major depr essive disorder F33.1 [place] [address] [address] March, Moderate episode of recurrent major depr essive disorder F33.1 [place] [address] [address] March, Exercise counseling Z71.82 [place] [address] [address] March, [place] [address] [address] March, Exercise counseling Z71.82 [place] [address] [address] March, Right otitis media with effusion H65.91 ; 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 and Diabetes type 2, controlled E11.9 [place] [address] [address] March, Moderate episode of recurrent major depr essive disorder F33.1 [place] [address] [address] March, Exercise counseling Z71.82 [place] [address] [address] March, Exercise counseling Z71.82 [place] [address] [address] March, Callus of foot L84 [place] [address] [address] Feb, Moderate episode of recurrent major depr essive disorder F33.1 [place] [address] [address] Feb, [place] [address] [address] Feb, Moderate episode of recurrent major depr essive disorder F33.1 [place] [address] [address] Feb, Diabetes type 2, controlled E11.9 and Es sential hypertension I10 [place] [address] [address] Jan, [place] [address] [address] Jan, Callus of foot L84 [place] [address] [address] Jan, Moderate episode of recurrent major depr essive disorder F33.1 [place] [address] [address] Jan, Moderate episode of recurrent major depr essive disorder F33.1 [place] [address] [address] Dec, Moderate episode of recurrent major depr essive disorder F33.1 [place] [address] [address] 11 Dec, 2018 Candidiasis of the esophagus B37.81 [facility] [address] [address] 08 Dec, 2018 [facility] [address] [facility] [id number] [address] [place] [address] Dec, Fecal occult blood test posi tive R19.5 and Anemia, unspecified type D64.9 [place] [address] [address] Nov, Stool color black K92.1 [place] [address] [address] Nov, Stool color black K92.1 [place] [address] [address] Nov, Stool color black K92.1 [place] [address] [address] Nov, [place] [address] [address] Nov, Moderate episode of recurrent major depr essive disorder F33.1 [place] [address] [address] Oct, Moderate episode of recurrent major depr essive disorder F33.1 [place] [address] [address] 18 Oct, 2018 Callus of foot L84 and Controlled type 2 diabetes mellitus without complication, without long-term current use of insulin E11.9 [place] [address] [address] 10 Oct, 2018 Moderate episode of recurrent major depr essive disorder F33.1 [place] [address] [address] Aug, Mood disorder F39 [facility] [address] [address] 05 Aug, 2018 Encounter for immunization Z23 [place] [address] [address] 26 Jul, 2018 Moderate episode of recurrent major depr essive disorder F33.1 [place] [address] [address] Jul, Moderate episode of recurrent major depr essive disorder F33.1 [place] [address] [address] May, [place] [address] [address] May, Moderate episode of recurrent major depr essive disorder F33.1 [place] [address] [address] May, Moderate episode of recurrent major depr essive disorder F33.1 [place] [address] [address] Apr, Benign prostatic hyperplasia with lower urinary tract symptoms N40.1 and Hesitancy of micturition R39.11 [place] [address] [address] Apr, Moderate episode of recurrent major depr essive disorder F33.1 [place] [address] [address] Apr, Unspecified mood [affective] disorder F3 9 and Primary insomnia F51.01 [place] [address] [address] Apr, Primary insomnia F51.01 [place] [address] [address] March, Foot callus L84 [place] [address] [address] Feb, Medicare annual wellness visit, initial Z00.00 [facility] [address] [place] [id number] [place] [address] Feb, Acute superficial venous thrombosis of l eft lower extremity I82.812 [facility] [address] [address] Feb, [facility] [address] [address] Feb, [facility] [address] [address] Feb, Acute superficial venous thrombosis of l eft lower extremity I82.812 [facility] [address] [address] Feb, [facility] [address] [facility] [id number] [address] [place] [address] Feb, Other specified soft tissue disorders M79.89 and Pain in left leg M79.605 [facility] [address] [place] [id number] [place] [address] Jan, Obstructive sleep apnea G47.33 [place] [address] [address] Dec, Obstructive sleep apnea G47.33 and Mood disorder F39 [place] [address] [address] Dec, [facility] [address] [address] Dec, [facility] [address] [address] Nov, Diabetes type 2, controlled E11.9 [place] [address] [address] Nov, Encounter for immunization Z23 [place] [address] [address] Nov, Primary insomnia F51.01 [place] [address] [address] Oct, Medicare annual wellness visit, subseque nt Z00.00 and Mood disorder F39 [place] [address] [address] Sep, Mood disorder F39 [place] [address] [address] Aug, Primary insomnia F51.01 and Urinary hesi tancy R39.11 [place] [address] [address] Aug, Primary insomnia F51.01 [place] [address] [address] 07 Jul, 2017 Diabetes type 2, controlled E11.9 ; Prim ju insomnia F51.01 and Mood disorder F39 [facility] [address] [facility] [id number] Jun, Mood disorder F39 [facility] [address] [facility] [id number] Jun, [place] [address] [address] May, Nightmares F51.5 [place] [address] [address] May, Cognitive complaints R41.9 ; Unspecified mood [affective] disorder F39 and Primary insomnia F51.01 [place] [address] [address] Apr, Mood disorder F39 and Primary insomnia F 51.01 [place] [address] [address] Apr, Cognitive complaints R41.9 and Unspecifi ed mood [affective] disorder F39 [place] [address] [address] Apr, Cognitive complaints R41.9 and Unspecifi ed mood [affective] disorder F39 [place] [address] [address] March, [place] [address] [address] March, Diabetes type 2, controlled E11.9 and Es sential hypertension I10 [place] [address] [address] March, Primary insomnia F51.01 ; Diabetes type 2, controlled E11.9 and Pain in right shoulder M25.511 [place] [address] [address] March, Cognitive complaints R41.9 and Unspecifi ed mood [affective] disorder F39 [place] [address] [address] Feb, 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 [place] [address] [address] Jan, [place] [address] [address] Jan, [place] [address] [address] Dec, Diabetes type 2, controlled E11.9 ; Hype rtension, benign I10 and Mood disorder F39 [place] [address] [address] Dec, Medicare annual wellness visit, initial Z00.00 [place] [address] [address] 05 Nov, 2016 Medicare welcome exam Z00.00 ; Encounter for immunization Z23 ; Medicare annual wellness visit, initial Z00.00 and Medicare annual wellness visit, subsequent Z00.00 [place] [address] [address] Oct, [place] [address] [address] Sep, [place] [address] [address] Aug, Encounter for immunization Z23 and Callu s L84 [place] [address] [address] Aug, [place] [address] [address] Jul, Diabetes type 2, controlled E11.9 [place] [address] [address] Jul, Diabetes type 2, controlled E11.9 [place] [address] [address] Jun, [place] [address] [address] Jun, Hypertension, benign I10 ; Mood disorder F39 and Diabetes type 2, controlled E11.9 [place] [address] [address] Jun, Mood disorder F39 [place] [address] [address] May, [place] [address] [address] May, Mood disorder F39 [place] [address] [address] May, Mood disorder F39 [place] [address] [address] 16 Apr, 2016 Controlled type 2 diabetes mellitus with out complication, without long-term current use of insulin E11.9 ; Essential hypertension I10 and Pain in right shoulder M25.511 [place] [address] [address] 08 Apr, 2016 Mood disorder F39 [place] [address] [address] 07 Apr, 2016 Pre-op evaluation Z01.818 [place] [address] [address] March, Mood disorder F39 [facility] [address] [address] Feb, [facility] [address] [address] Feb, Shoulder pain, right M25.511 [facility] [address] [address] Feb, Shoulder pain, right M25.511 [place] [address] [address] Feb, Shoulder pain, right M25.511 [place] [address] [address] Feb, Shoulder pain, right M25.511 [place] [address] [address] Jan, Shoulder pain, right M25.511 [place] [address] [address] Jan, Shoulder pain, right M25.511 [place] [address] [address] Jan, [place] [address] [address] Jan, Diabetes type 2, controlled E11.9 [place] [address] [address] Jan, Shoulder pain, right M25.511 ; Diabetes mellitus without mention of complication, type II or unspecified type, not stated as uncontrolled 250.00 and Diabetes type 2, controlled E11.9 [place] [address] [address] Jan, [place] [address] [address] Jan, [place] [address] [address] Dec, [facility] [address] [address] Oct, Callus of foot L84 [facility] [address] [address] Oct, Anxiety F41.9 ; Callus of foot L84 and D ysuria R30.0 [facility] [address] [address] Sep, Diabetes mellitus without mention of com plication, type II or unspecified type, not stated as uncontrolled 250.00 [facility] [address] [address] Aug, Diabetes mellitus without mention of com plication, type II or unspecified type, not stated as uncontrolled 250.00 [facility] [address] [address] Jul, [facility] [address] [address] Jul, [facility] [address] [address] Jul, Diabetes mellitus without mention of com plication, type II or unspecified type, not stated as uncontrolled 250.00 ; Essential hypertension, benign 401.1 and Anxiety state, unspecified 300.00 [facility] [address] [address] Jul, [facility] [address] [address] Jun, [facility] [address] [address] Jun, [facility] [address] [address] May, [facility] [address] [address] May, [facility] [address] [address] Apr, [facility] [address] [id number] [place] [address] Apr, Mood disorder 296.90 [facility] [address] [id number] [facility] [place] [address] March, [facility] [address] [id number] [place] [address] Feb, [facility] [address] [id number] [place] [address] Feb, [facility] [address] [id number] [place] [address] Jan, [facility] [address] [id number] [place] [address] Jan, [facility] [address] [id number] [place] [address] Jan, [facility] [address] [id number] [place] [address] Jan, [facility] [address] [id number] [place] [address] Jan, [facility] [address] [id number] [place] [address] Jan, [facility] [address] [id number] [place] [address] Jan, [facility] [address] [id number] [place] [address] Jan, [facility] [address] [id number] [place] [address] Dec, [facility] [address] [id number] [place] [address] Dec, [facility] [address] [id number] [place] [address] Nov, [facility] [address] [id number] [place] [address] Nov, [facility] [address] [id number] [place] [address] Nov, [facility] [address] [id number] [place] [address] Nov, [facility] [address] [id number] [place] [address] Oct, [facility] [address] [id number] [place] [address] Oct, [facility] [address] [id number] [place] [address] Oct, [facility] [address] [id number] [place] [address] Oct, [facility] [address] [id number] [place] [address] Oct, [facility] [address] [id number] [place] [address] Oct, [facility] [address] [id number] [place] [address] Oct, [facility] [address] [id number] [place] [address] Oct, [facility] [address] [id number] [place] [address] Oct, [facility] [address] [id number] [place] [address] Oct, [facility] [address] [id number] [place] [address] Sep, [facility] [address] [id number] [place] [address] Sep, [facility] [address] [id number] [place] [address] Sep, [facility] [address] [id number] [place] [address] Sep, [facility] [address] [id number] [place] [address] Sep, [facility] [address] [id number] [place] [address] Sep, [facility] [address] [id number] [place] [address] Aug, [facility] [address] [id number] [place] [address] Aug, [facility] [address] [id number] [place] [address] Jul, [facility] [address] [id number] [place] [address] Jul, [facility] [address] [id number] [place] [address] Jun, [facility] [address] [id number] [place] [address] Jun, [facility] [address] [id number] [place] [address] May, [facility] [address] [id number] [place] [address] May, [facility] [address] [id number] [place] [address] Apr, [facility] [address] [id number] [place] [address] Apr, [facility] [address] [id number] [place] [address] Apr, [facility] [address] [id number] [place] [address] Apr, [facility] [address] [id number] [place] [address] March, [facility] [address] [id number] [place] [address] March, [facility] [address] [id number] [place] [address] Jan, [facility] [address] [id number] [place] [address] Jan, [facility] [address] [id number] [place] [address] Jan, [facility] [address] [id number] [place] [address] Jan, [facility] [address] [id number] [place] [address] Jan, [facility] [address] [id number] [place] [address] Jan, [facility] [address] [id number] [place] [address] Dec, [facility] [address] [id number] [place] [address] Dec, [facility] [address] [id number] [place] [address] Oct, [facility] [address] [id number] [place] [address] Oct, [facility] [address] [id number] [place] [address] Oct, [facility] [address] [id number] [place] [address] Oct, [facility] [address] [id number] [place] [address] Jul, [facility] [address] [id number] [place] [address] Jul, [facility] [address] [id number] [place] [address] Jul, [facility] [address] [id number] [place] [address] Jun, [facility] [address] [id number] [place] [address] Jun, [facility] [address] [id number] [place] [address] May, [facility] [address] [id number] [place] [address] May, [facility] [address] [id number] [place] [address] March, [facility] [address] [id number] [place] [address] March, [facility] [address] [id number] [place] [address] Feb, [facility] [address] [id number] [place] [address] Feb, [facility] [address] [id number] [place] [address] Jan, [facility] [address] [id number] [place] [address] Dec, [facility] [id number] [place] [address] Dec, [facility] [id number] [place] [address] Dec, [facility] [address] [id number] [place] [address] Dec, [facility] [address] [id number] [place] [address] Dec, [facility] [address] [id number] [place] [address] Nov, [facility] [address] [id number] [place] [address] Oct, [facility] [address] [id number] [place] [address] Oct, [facility] [id number] [place] [address] Aug, [facility] [address] [id number] [place] [address] Aug, [facility] [id number] [place] [address] Aug, [facility] [address] [id number] [place] [address] Aug, [facility] [address] [id number] [place] [address] Aug, [facility] [address] [id number] [place] [address] Jul, [facility] [address] [id number] [place] [address] Jul, [facility] [address] [id number] [place] [address] Jun, [facility] [address] [id number] [place] [address] Jun, [facility] [address] [id number] [place] [address] May, [facility] [address] [id number] [place] [address] May, [facility] [address] [id number] [place] [address] May, [facility] [address] [id number] [place] [address] Apr, [facility] [address] [id number] [place] [address] Apr, [facility] [address] [id number] [place] [address] March, [facility] [address] [id number] [place] [address] March, [facility] [address] [id number] [place] [address] Feb, [facility] [address] [id number] [place] [address] 17 Feb, 2012 [facility] [address] [id number] [place] [address] Feb, [facility] [address] [id number] [place] [address] Feb, IMMUNIZATIONS No Known Immunizations SOCIAL HISTORY [...]
--- OUTSIDE RECORDS SUMMARY | 2020-06-17 08:45 | XMS REPORT ---
Author Author Barrie Wisdom Doctor Organization [facility] Address Unknown Phone Unavailable Care Team Providers Care Executive Assistant Name Role Phone Migration, Doctor Unavailable Unavailable PROBLEMS Type Condition ICD9-CM Code [id number] Code Onset Dates Condition S tatus SNOMED Code Problem Diabetes type 2, controlled E11.9 Ac tive 56010176 Problem Essential hypertension I10 Active 33531273 Problem Primary insomnia F51.01 Active 397 2004 Problem Obstructive sleep apnea G47.33 Active 36906766 Problem Urinary hesitancy R39.11 Active 59 38196 Problem Hesitancy of micturition R39.11 Activ e 4367814 Problem Benign prostatic hyperplasia with lower urinary tract symptoms N40.1 Active 648762653 Problem Controlled type 2 diabetes m ellitus without complication, without long- term current use of insulin E11.9 Active 546881051 Problem Mood disorder F39 Active 036057 05 Problem Acute superficial venous thrombosis of left lower extremit y I82.812 Active [id number] Problem Panlobular emphysema J43.1 Active 9963250 Problem 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.1 Active 676601011 Problem 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 Acti ve 75531698 Problem Arthritis M19.90 Active 7920937 Problem Uncontrolled type 2 diabetes mellitus with hyperglycemia E11.65 Active 862352248 Problem EMIR (obstructive sleep apnea) G47.33 Active 14639017 ALLERGIES No Information ENCOUNTERS Encounter Location Date Diagnosis [facility] [id number] [place] [address] March, [facility] [address] [address] Jan, [facility] [address] [address] 07 Dec, 2019 Moderate episode of recurrent major depr essive disorder F33.1 [facility] [id number] [place] [address] Dec, Moderate episode of recurrent major depr essive disorder F33.1 [facility] [address] [address] Dec, Moderate episode of recurrent major depr essive disorder F33.1 [facility] [address] [address] Nov, Panlobular emphysema J43.1 ; Mood disord er F39 and Controlled type 2 diabetes mellitus without complication, without long-term current use of insulin E11.9 [address] [address] [address] Nov, [facility] [facility] [address] [address] Nov, Increased sputum production R09.3 and OS A (obstructive sleep apnea) G47.33 [facility] [facility] [address] [address] Oct, [facility] [address] [address] Sep, [facility] [address] [address] Sep, [facility] [address] [address] Sep, [facility] [address] [address] Aug, Moderate episode of recurrent major depr essive disorder F33.1 [facility] [address] [address] Aug, Moderate episode of recurrent major depr essive disorder F33.1 [facility] [facility] [address] [address] Aug, Moderate episode of recurrent major depr essive disorder F33.1 [facility] [address] [address] Jul, [facility] [address] [address] Jul, Foot callus L84 ; Uncontrolled type 2 di abetes mellitus with hyperglycemia E11.65 ; Arthritis M19.90 ; Encounter for immunization Z23 ; Rib pain on right side R07.81 and Lumbar pain M54.5 [facility] [address] [address] Jul, [facility] [facility] [address] [address] Jun, [facility] [facility] [address] [address] Jun, [facility] [address] [address] Jun, Callus of foot L84 [facility] [facility] [address] [address] Jun, [facility] [address] [address] Apr, Exercise counseling Z71.82 [facility] [facility] [address] [address] March, Moderate episode of recurrent major depr essive disorder F33.1 [facility] [address] [address] March, Moderate episode of recurrent major depr essive disorder F33.1 [facility] [facility] [address] [address] March, Exercise counseling Z71.82 [facility] [address] [address] March, [facility] [facility] [address] [address] March, Exercise counseling Z71.82 [facility] [address] [address] March, Right otitis media with effusion H65.91 ; 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 and Diabetes type 2, controlled E11.9 [facility] [address] [address] March, Moderate episode of recurrent major depr essive disorder F33.1 [facility] [facility] [address] [address] March, Exercise counseling Z71.82 [facility] [address] [address] March, Exercise counseling Z71.82 [facility] [address] [address] March, Callus of foot L84 [facility] [address] [address] Feb, Moderate episode of recurrent major depr essive disorder F33.1 [facility] [address] [address] Feb, [facility] [address] [address] Feb, Moderate episode of recurrent major depr essive disorder F33.1 [facility] [address] [address] Feb, Diabetes type 2, controlled E11.9 and Es sential hypertension I10 [place] [address] [address] Jan, [facility] [facility] [address] [address] Jan, Callus of foot L84 [facility] [address] [address] Jan, Moderate episode of recurrent major depr essive disorder F33.1 [facility] [address] [address] Jan, Moderate episode of recurrent major depr essive disorder F33.1 [facility] [address] [address] Dec, Moderate episode of recurrent major depr essive disorder F33.1 [facility] [address] [address] 11 Dec, 2018 Candidiasis of the esophagus B37.81 [facility] [address] [address] 08 Dec, 2018 [facility] [address] [facility] [id number] [place] [address] 04 Dec, 2018 Fecal occult blood test posi tive R19.5 and Anemia, unspecified type D64.9 [place] [address] [address] Nov, Stool color black K92.1 [facility] [address] [address] Nov, Stool color black K92.1 [facility] [facility] [address] [address] Nov, Stool color black K92.1 [facility] [address] [address] Nov, [facility] [address] [address] Nov, Moderate episode of recurrent major depr essive disorder F33.1 [facility] [address] [address] Oct, Moderate episode of recurrent major depr essive disorder F33.1 [facility] [address] [address] 18 Oct, 2018 Callus of foot L84 and Controlled type 2 diabetes mellitus without complication, without long-term current use of insulin E11.9 [facility] [address] [address] 10 Oct, 2018 Moderate episode of recurrent major depr essive disorder F33.1 [facility] [address] [address] 17 Aug, 2018 Mood disorder F39 [facility] [address] [address] 05 Aug, 2018 Encounter for immunization Z23 [facility] [address] [address] 26 Jul, 2018 Moderate episode of recurrent major depr essive disorder F33.1 [place] [address] [address] 24 Jul, 2018 Moderate episode of recurrent major depr essive disorder F33.1 [facility] [address] [address] May, [place] [address] [address] May, Moderate episode of recurrent major depr essive disorder F33.1 [facility] [address] [address] May, Moderate episode of recurrent major depr essive disorder F33.1 [facility] [address] [address] Apr, Benign prostatic hyperplasia with lower urinary tract symptoms N40.1 and Hesitancy of micturition R39.11 [place] [address] [address] Apr, Moderate episode of recurrent major depr essive disorder F33.1 [facility] [address] [address] Apr, Unspecified mood [affective] disorder F3 9 and Primary insomnia F51.01 [place] [address] [address] Apr, Primary insomnia F51.01 [place] [address] [address] March, Foot callus L84 [place] [address] [address] Feb, Medicare annual wellness visit, initial Z00.00 [place] [address] [address] Feb, Acute superficial venous thrombosis of l eft lower extremity I82.812 [facility] [address] [address] Feb, [facility] [address] [address] Feb, [facility] [address] [address] Feb, Acute superficial venous thrombosis of l eft lower extremity I82.812 [facility] [address] [address] Feb, [facility] [address] [facility] [id number] [address] [place] [address] Feb, Other specified soft tissue disorders M79.89 and Pain in left leg M79.605 [place] [address] [address] Jan, Obstructive sleep apnea G47.33 [place] [address] [address] Dec, Obstructive sleep apnea G47.33 and Mood disorder F39 [place] [address] [address] Dec, [facility] [address] [address] Dec, [place] [address] [address] Nov, Diabetes type 2, controlled E11.9 [place] [address] [address] Nov, Encounter for immunization Z23 [address] [address] [address] Nov, Primary insomnia F51.01 [place] [address] [address] Oct, Medicare annual wellness visit, subseque nt Z00.00 and Mood disorder F39 [facility] [address] [address] Sep, Mood disorder F39 [place] [address] [address] Aug, Primary insomnia F51.01 and Urinary hesi tancy R39.11 [place] [address] [address] Aug, Primary insomnia F51.01 [place] [address] [address] Jul, Diabetes type 2, controlled E11.9 ; Prim ju insomnia F51.01 and Mood disorder F39 [address] [facility] [id number] Jun, Mood disorder F39 [facility] [address] [facility] [place] [id number] Jun, [address] [address] [address] May, Nightmares F51.[address] [address] May, Cognitive complaints R41.9 ; Unspecified mood [affective] disorder F39 and Primary insomnia F51.[address] [address] Apr, Mood disorder F39 and Primary insomnia F 51.01 [place] [address] [address] Apr, Cognitive complaints R41.9 and Unspecifi ed mood [affective] disorder F39 [address] [address] [address] Apr, Cognitive complaints R41.9 and Unspecifi ed mood [affective] disorder F39 [address] [address] [address] March, [address] [address] [address] March, Diabetes type 2, controlled E11.9 and Es sential hypertension I10 [address] [address] [address] March, Primary insomnia F51.01 ; Diabetes type 2, controlled E11.9 and Pain in right shoulder M25.511 [address] [address] [address] March, Cognitive complaints R41.9 and Unspecifi ed mood [affective] disorder F39 [address] [address] Feb, 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 [address] [address] [address] Jan, [address] [address] Jan, [address] [address] [address] Dec, Diabetes type 2, controlled E11.9 ; Hype rtension, benign I10 and Mood disorder F39 [address] [address] [address] Dec, Medicare annual wellness visit, initial Z00.[address] [address] Nov, Medicare welcome exam Z00.00 ; Encounter for immunization Z23 ; Medicare annual wellness visit, initial Z00.00 and Medicare annual wellness visit, subsequent Z00.[address] [address] Oct, [address] [address] Sep, [address] [address] Aug, Encounter for immunization Z23 and Callu s L84 [facility] [id number] [place] [address] 07 Aug, 2016 [facility] [address] [address] Jul, Diabetes type 2, controlled E11.9 [facility] [id number] [place] [address] Jul, Diabetes type 2, controlled E11.9 [facility] [address] [address] Jun, [facility] [address] [address] Jun, Hypertension, benign I10 ; Mood disorder F39 and Diabetes type 2, controlled E11.9 [facility] [address] [address] Jun, Mood disorder F39 [facility] [address] [address] May, [facility] [address] [address] May, Mood disorder F39 [facility] [address] [address] May, Mood disorder F39 [facility] [address] [address] Apr, Controlled type 2 diabetes mellitus with out complication, without long-term current use of insulin E11.9 ; Essential hypertension I10 and Pain in right shoulder M25.511 [facility] [id number] [place] [address] Apr, Mood disorder F39 [facility] [address] [address] Apr, Pre-op evaluation Z01.818 [facility] [id number] [place] [address] March, Mood disorder F39 [facility] [id number] [place] [address] Feb, [facility] [address] [address] Feb, Shoulder pain, right M25.511 [facility] [address] [place] [address] Feb, Shoulder pain, right M25.511 [facility] [address] [address] Feb, Shoulder pain, right M25.511 [facility] [address] [address] Feb, Shoulder pain, right M25.511 [facility] [address] [address] Jan, Shoulder pain, right M25.511 [facility] [address] [address] Jan, Shoulder pain, right M25.511 [facility] [address] [address] Jan, [facility] [address] [address] 14 Jan, 2016 Diabetes type 2, controlled E11.9 [address] [address] Jan, Shoulder pain, right M25.511 ; Diabetes mellitus without mention of complication, type II or unspecified type, not stated as uncontrolled 250.00 and Diabetes type 2, controlled E11.9 [facility] [address] [address] Jan, [facility] [address] [address] Jan, [facility] [address] [address] Dec, [facility] [address] [address] Oct, Callus of foot L84 [facility] [address] [address] Oct, Anxiety F41.9 ; Callus of foot L84 and D ysuria R30.0 [facility] [address] [address] Sep, Diabetes mellitus without mention of com plication, type II or unspecified type, not stated as uncontrolled 250.00 [facility] [address] [address] Aug, Diabetes mellitus without mention of com plication, type II or unspecified type, not stated as uncontrolled 250.00 [facility] [address] [address] Jul, [facility] [address] [address] Jul, [facility] [address] [address] Jul, Diabetes mellitus without mention of com plication, type II or unspecified type, not stated as uncontrolled 250.00 ; Essential hypertension, benign 401.1 and Anxiety state, unspecified 300.00 [facility] [address] [address] Jul, [facility] [address] [address] Jun, [facility] [address] [address] Jun, [facility] [address] [address] May, [facility] [address] [address] May, [facility] [address] [address] Apr, [facility] [address] [address] Apr, Mood disorder 296.90 [facility] [address] [id number] [place] [address] March, [facility] [address] [id number] [place] [address] Feb, [facility] [address] [id number] [place] [address] Feb, [facility] [address] [id number] [place] [address] Jan, [facility] [address] [id number] [place] [address] Jan, [facility] [address] [id number] [place] [address] Jan, [facility] [address] [id number] [place] [address] Jan, [facility] [address] [id number] [place] [address] Jan, [facility] [address] [id number] [place] [address] Jan, [facility] [address] [id number] [place] [address] Jan, [facility] [address] [id number] [place] [address] Jan, [facility] [address] [id number] [place] [address] Dec, [facility] [address] [id number] [place] [address] Dec, [facility] [address] [id number] [place] [address] Nov, [facility] [address] [id number] [place] [address] Nov, [facility] [address] [id number] [place] [address] Nov, [facility] [address] [id number] [place] [address] Nov, [facility] [address] [id number] [place] [address] Oct, [facility] [address] [id number] [place] [address] Oct, [facility] [address] [id number] [place] [address] Oct, [facility] [address] [id number] [place] [address] Oct, [facility] [address] [id number] [place] [address] Oct, [facility] [address] [id number] [place] [address] Oct, [facility] [address] [id number] [place] [address] Oct, [facility] [address] [id number] [place] [address] Oct, [facility] [address] [id number] [place] [address] 15 Oct, 2014 [facility] [address] [id number] [place] [address] Oct, [facility] [address] [id number] [place] [address] Sep, [facility] [address] [id number] [place] [address] Sep, [facility] [address] [id number] [place] [address] 18 Sep, 2014 [facility] [address] [id number] [place] [address] Sep, [facility] [address] [id number] [place] [address] Sep, [facility] [address] [id number] [place] [address] Sep, [facility] [address] [facility] [id number] [place] [address] Aug, [facility] [address] [id number] [place] [address] Aug, [facility] [address] [id number] [place] [address] Jul, [facility] [address] [id number] [place] [address] Jul, [facility] [address] [facility] [id number] [place] [address] Jun, [facility] [address] [id number] [place] [address] Jun, [facility] [address] [id number] [place] [address] May, [facility] [address] [id number] [place] [address] May, [facility] [address] [id number] [place] [address] Apr, [facility] [address] [id number] [place] [address] Apr, [facility] [address] [id number] [place] [address] Apr, [facility] [address] [id number] [place] [address] Apr, [facility] [address] [id number] [place] [address] March, [facility] [address] [id number] [place] [address] March, [facility] [address] [id number] [place] [address] Jan, [facility] [address] [id number] [place] [address] Jan, [facility] [address] [id number] [place] [address] Jan, [facility] [address] [facility] [id number] [place] [address] Jan, [facility] [address] [id number] [place] [address] Jan, [facility] [address] [id number] [place] [address] Jan, [facility] [address] [id number] [place] [address] Dec, [facility] [address] [id number] [place] [address] Dec, [facility] [address] [id number] [place] [address] Oct, [facility] [address] [id number] [place] [address] Oct, [facility] [address] [id number] [place] [address] Oct, [facility] [address] [id number] [place] [address] Oct, [facility] [id number] [place] [address] Jul, [facility] [id number] [place] [address] Jul, [facility] [id number] [place] [address] Jul, [facility] [id number] [place] [address] Jun, [facility] [id number] [place] [address] Jun, [facility] [id number] [place] [address] May, [facility] [id number] [place] [address] May, [facility] [id number] [place] [address] March, [facility] [id number] [place] [address] March, [facility] [id number] [place] [address] Feb, [facility] [id number] [place] [address] Feb, [facility] [id number] [place] [address] Jan, [facility] [id number] [place] [address] Dec, [facility] [id number] [place] [address] Dec, [facility] [id number] [place] [address] Dec, [facility] [id number] [place] [address] Dec, [facility] [id number] [place] [address] Dec, [facility] [id number] [place] [address] Nov, [facility] [id number] [place] [address] Oct, [facility] [id number] [place] [address] Oct, [facility] [id number] [place] [address] Aug, [facility] [id number] [place] [address] Aug, [facility] [id number] [place] [address] Aug, [facility] [id number] [place] [address] Aug, [facility] [id number] [place] [address] Aug, [facility] [id number] [place] [address] Jul, [facility] [id number] [place] [address] Jul, [facility] [id number] [place] [address] Jun, [facility] [id number] [place] [address] Jun, [facility] [id number] [place] [address] May, [facility] [id number] [place] [address] May, [facility] [id number] [place] [address] May, [facility] [id number] [place] [address] Apr, [facility] [id number] [place] [address] Apr, [facility] [id number] [place] [address] March, [facility] [id number] [place] [address] March, [facility] [id number] [place] [address] Feb, [facility] [id number] [place] [address] Feb, [facility] [id number] [place] [address] Feb, [facility] [id number] [place] [address] Feb, IMMUNIZATIONS No Known Immunizations SOCIAL HISTORY [...]
--- OUTSIDE RECORDS SUMMARY | 2020-06-17 08:45 | XMS REPORT ---
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.1 Active 105002594 Problem Acute superficial venous thrombosis of left lower extremit y I82.812 Active [id number] Problem Hesitancy of micturition R39.11 Activ e 4150605 Problem Arthritis M19.90 Active 5717246 Problem Obstructive sleep apnea G47.33 Active 92405606 Problem EMIR (obstructive sleep apnea) G47.33 Active 32281553 Problem Urinary hesitancy R39.11 Active 59 56596 Problem Benign prostatic hyperplasia with lower urinary tract symptoms N40.1 Active 463901034 Problem Controlled type 2 diabetes m ellitus without complication, without long- term current use of insulin E11.9 Active 570110559 Problem 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 Acti ve 45741152 Problem Uncontrolled type 2 diabetes mellitus with hyperglycemia E11.65 Active 697717238 ALLERGIES No Information ENCOUNTERS Encounter Location Date Diagnosis [facility] [address] [id number] [place] [address] Dec, [facility] [address] [id number] [place] [address] Dec, [facility] [address] [id number] [place] [address] Nov, [facility] [address] [id number] [place] [address] Nov, [facility] [address] [address] Nov, Increased sputum production R09.3 and OS A (obstructive sleep apnea) G47.33 [facility] [address] [address] Oct, [facility] [address] [address] Sep, [facility] [address] [address] Sep, [facility] [address] [address] Sep, [facility] [address] [address] Aug, Moderate episode of recurrent major depr essive disorder F33.1 [facility] [address] [address] Aug, Moderate episode of recurrent major depr essive disorder F33.1 [facility] [address] [address] Aug, Moderate episode of recurrent major depr essive disorder F33.1 [facility] [address] [address] Jul, [facility] [address] [address] Jul, Foot callus L84 ; Uncontrolled type 2 di abetes mellitus with hyperglycemia E11.65 ; Arthritis M19.90 ; Encounter for immunization Z23 ; Rib pain on right side R07.81 and Lumbar pain M54.5 [facility] [address] [address] Jul, [facility] [address] [address] Jun, [facility] [address] [address] Jun, [facility] [address] [address] Jun, Callus of foot L84 [place] [address] [address] Jun, [place] [address] [address] Apr, Exercise counseling Z71.82 [place] [address] [address] March, Moderate episode of recurrent major depr essive disorder F33.1 [place] [address] [address] March, Moderate episode of recurrent major depr essive disorder F33.1 [place] [address] [address] March, Exercise counseling Z71.82 [place] [address] [address] March, [place] [address] [address] March, Exercise counseling Z71.82 [place] [address] [address] March, Right otitis media with effusion H65.91 ; 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 and Diabetes type 2, controlled E11.9 [place] [address] [address] March, Moderate episode of recurrent major depr essive disorder F33.1 [place] [address] [address] March, Exercise counseling Z71.82 [place] [address] [address] March, Exercise counseling Z71.82 [place] [address] [address] March, Callus of foot L84 [place] [address] [address] Feb, Moderate episode of recurrent major depr essive disorder F33.1 [place] [address] [address] Feb, [place] [address] [address] Feb, Moderate episode of recurrent major depr essive disorder F33.1 [place] [address] [address] Feb, Diabetes type 2, controlled E11.9 and Es sential hypertension I10 [place] [address] [address] Jan, [place] [address] [address] Jan, Callus of foot L84 [place] [address] [address] Jan, Moderate episode of recurrent major depr essive disorder F33.1 [place] [address] [address] Jan, Moderate episode of recurrent major depr essive disorder F33.1 [place] [address] [address] Dec, Moderate episode of recurrent major depr essive disorder F33.1 [place] [address] [address] Dec, Candidiasis of the esophagus B37.81 [place] [address] [address] Dec, [facility] [address] [facility] [id number] [address] [place] [address] Dec, Fecal occult blood test posi tive R19.5 and Anemia, unspecified type D64.9 [place] [address] [address] Nov, Stool color black K92.1 [place] [address] [address] Nov, Stool color black K92.1 [place] [address] [address] Nov, Stool color black K92.1 [place] [address] [address] Nov, [place] [address] [address] Nov, Moderate episode of recurrent major depr essive disorder F33.1 [place] [address] [address] Oct, Moderate episode of recurrent major depr essive disorder F33.1 [place] [address] [address] Oct, Callus of foot L84 and Controlled type 2 diabetes mellitus without complication, without long-term current use of insulin E11.9 [place] [address] [address] Oct, Moderate episode of recurrent major depr essive disorder F33.1 [place] [address] [address] Aug, Mood disorder F39 [place] [address] [address] Aug, Encounter for immunization Z23 [place] [address] [address] Jul, Moderate episode of recurrent major depr essive disorder F33.1 [place] [address] [address] Jul, Moderate episode of recurrent major depr essive disorder F33.1 [place] [address] [address] May, [place] [address] [address] May, Moderate episode of recurrent major depr essive disorder F33.1 [facility] [address] [place] [id number] [place] [address] May, Moderate episode of recurrent major depr essive disorder F33.1 [facility] [address] [address] Apr, Benign prostatic hyperplasia with lower urinary tract symptoms N40.1 and Hesitancy of micturition R39.11 [facility] [address] [address] Apr, Moderate episode of recurrent major depr essive disorder F33.1 [facility] [address] [address] Apr, Unspecified mood [affective] disorder F3 9 and Primary insomnia F51.01 [place] [address] [address] Apr, Primary insomnia F51.01 [facility] [address] [address] March, Foot callus L84 [facility] [address] [address] Feb, Medicare annual wellness visit, initial Z00.00 [facility] [address] [id number] [place] [address] Feb, Acute superficial venous thrombosis of l eft lower extremity I82.812 [facility] [address] [address] Feb, [facility] [address] [address] Feb, [facility] [address] [address] Feb, Acute superficial venous thrombosis of l eft lower extremity I82.812 [facility] [address] [id number] [place] [address] Feb, [facility] [address] [facility] [id number] [address] [place] [address] 04 Feb, 2018 Other specified soft tissue disorders M79.89 and Pain in left leg M79.605 [place] [address] [address] Jan, Obstructive sleep apnea G47.33 [place] [address] [address] Dec, Obstructive sleep apnea G47.33 and Mood disorder F39 [place] [address] [address] Dec, [place] [address] [address] Dec, [place] [address] [address] Nov, Diabetes type 2, controlled E11.9 [place] [address] [address] Nov, Encounter for immunization Z23 [place] [address] [address] Nov, Primary insomnia F51.01 [place] [address] [address] Oct, Medicare annual wellness visit, subseque nt Z00.00 and Mood disorder F39 [place] [address] [address] Sep, Mood disorder F39 [place] [address] [address] Aug, Primary insomnia F51.01 and Urinary hesi tancy R39.11 [place] [address] [address] Aug, Primary insomnia F51.01 [place] [address] [address] 07 Jul, 2017 Diabetes type 2, controlled E11.9 ; Prim ju insomnia F51.01 and Mood disorder F39 [facility] [id number] [place] [id number] Jun, Mood disorder F39 [facility] [address] [id number] [place] [id number] Jun, [place] [id number] [place] [address] May, Nightmares F51.5 [place] [address] [address] May, Cognitive complaints R41.9 ; Unspecified mood [affective] disorder F39 and Primary insomnia F51.01 [place] [address] [address] Apr, Mood disorder F39 and Primary insomnia F 51.01 [place] [address] [address] Apr, Cognitive complaints R41.9 and Unspecifi ed mood [affective] disorder F39 [place] [address] [address] Apr, Cognitive complaints R41.9 and Unspecifi ed mood [affective] disorder F39 [place] [address] [address] March, [place] [address] [address] March, Diabetes type 2, controlled E11.9 and Es sential hypertension I10 [place] [address] [address] March, Primary insomnia F51.01 ; Diabetes type 2, controlled E11.9 and Pain in right shoulder M25.511 [place] [address] [address] March, Cognitive complaints R41.9 and Unspecifi ed mood [affective] disorder F39 [place] [address] [address] Feb, 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 [place] [address] [place] [id number] [place] [address] Jan, [place] [address] [address] Jan, [place] [address] [address] Dec, Diabetes type 2, controlled E11.9 ; Hype rtension, benign I10 and Mood disorder F39 [place] [address] [address] 08 Dec, 2016 Medicare annual wellness visit, initial Z00.00 [place] [address] [address] 05 Nov, 2016 Medicare welcome exam Z00.00 ; Encounter for immunization Z23 ; Medicare annual wellness visit, initial Z00.00 and Medicare annual wellness visit, subsequent Z00.00 [place] [address] [address] Oct, [place] [address] [address] Sep, [place] [address] [address] Aug, Encounter for immunization Z23 and Callu s L84 [place] [address] [address] Aug, [place] [address] [address] Jul, Diabetes type 2, controlled E11.9 [place] [address] [address] Jul, Diabetes type 2, controlled E11.9 [place] [address] [address] Jun, [place] [address] [address] Jun, Hypertension, benign I10 ; Mood disorder F39 and Diabetes type 2, controlled E11.9 [facility] [address] [address] Jun, Mood disorder F39 [facility] [address] [address] May, [facility] [address] [address] May, Mood disorder F39 [facility] [address] [address] May, Mood disorder F39 [facility] [address] [address] Apr, Controlled type 2 diabetes mellitus with out complication, without long-term current use of insulin E11.9 ; Essential hypertension I10 and Pain in right shoulder M25.511 [place] [address] [address] Apr, Mood disorder F39 [facility] [address] [address] Apr, Pre-op evaluation Z01.818 [place] [address] [address] March, Mood disorder F39 [facility] [address] [address] Feb, [facility] [address] [address] Feb, Shoulder pain, right M25.511 [facility] [address] [address] Feb, Shoulder pain, right M25.511 [facility] [address] [address] Feb, Shoulder pain, right M25.511 [facility] [address] [address] Feb, Shoulder pain, right M25.511 [place] [address] [address] Jan, Shoulder pain, right M25.511 [place] [address] [address] Jan, Shoulder pain, right M25.511 [place] [address] [address] Jan, [place] [address] [address] Jan, Diabetes type 2, controlled E11.9 [place] [address] [address] Jan, Shoulder pain, right M25.511 ; Diabetes mellitus without mention of complication, type II or unspecified type, not stated as uncontrolled 250.00 and Diabetes type 2, controlled E11.9 [place] [address] [address] Jan, [place] [address] [address] Jan, [place] [address] [address] Dec, [place] [address] [address] Oct, Callus of foot L84 [place] [address] [address] Oct, Anxiety F41.9 ; Callus of foot L84 and D ysuria R30.0 [place] [address] [address] Sep, Diabetes mellitus without mention of com plication, type II or unspecified type, not stated as uncontrolled 250.00 [place] [address] [address] Aug, Diabetes mellitus without mention of com plication, type II or unspecified type, not stated as uncontrolled 250.00 [facility] [id number] [place] [address] Jul, [facility] [id number] [place] [address] Jul, [facility] [id number] [place] [address] Jul, Diabetes mellitus without mention of com plication, type II or unspecified type, not stated as uncontrolled 250.00 ; Essential hypertension, benign 401.1 and Anxiety state, unspecified 300.00 [facility] [id number] [place] [address] Jul, [facility] [id number] [place] [address] Jun, [facility] [id number] [place] [address] Jun, [facility] [id number] [place] [address] May, [facility] [id number] [place] [address] May, [facility] [id number] [place] [address] Apr, [facility] [id number] [place] [address] Apr, Mood disorder 296.90 [facility] [id number] [place] [address] March, [facility] [id number] [place] [address] Feb, [facility] [id number] [place] [address] Feb, [facility] [id number] [place] [address] Jan, [facility] [id number] [place] [address] Jan, [facility] [address] [id number] [place] [address] Jan, [facility] [address] [id number] [place] [address] Jan, [facility] [address] [id number] [place] [address] Jan, [facility] [address] [id number] [place] [address] Jan, [facility] [address] [id number] [place] [address] Jan, [facility] [address] [id number] [place] [address] Jan, [facility] [address] [id number] [place] [address] Dec, [facility] [address] [id number] [place] [address] Dec, [facility] [address] [id number] [place] [address] Nov, [facility] [address] [id number] [place] [address] Nov, [facility] [address] [id number] [place] [address] Nov, [facility] [address] [id number] [place] [address] Nov, [facility] [address] [id number] [place] [address] Oct, [facility] [address] [id number] [place] [address] Oct, [facility] [address] [id number] [place] [address] Oct, [facility] [address] [id number] [place] [address] Oct, [facility] [address] [id number] [place] [address] Oct, [facility] [address] [id number] [place] [address] 24 Oct, 2014 [facility] [address] [id number] [place] [address] Oct, [facility] [address] [id number] [place] [address] 17 Oct, 2014 [facility] [address] [id number] [place] [address] 15 Oct, 2014 [facility] [address] [id number] [place] [address] 15 Oct, 2014 [facility] [address] [id number] [place] [address] Sep, [facility] [address] [id number] [place] [address] Sep, [facility] [address] [id number] [place] [address] 18 Sep, 2014 [facility] [address] [id number] [place] [address] Sep, [facility] [address] [id number] [place] [address] Sep, [facility] [address] [id number] [place] [address] 18 Sep, 2014 [facility] [address] [id number] [place] [address] 16 Aug, 2014 [facility] [address] [id number] [place] [address] 16 Aug, 2014 [facility] [address] [id number] [place] [address] Jul, [facility] [address] [id number] [place] [address] Jul, [facility] [address] [id number] [place] [address] Jun, [facility] [address] [id number] [place] [address] Jun, [facility] [address] [facility] [id number] [facility] [place] [address] May, [facility] [address] [facility] [id number] [place] [address] May, [facility] [address] [id number] [place] [address] Apr, [facility] [address] [facility] [id number] [place] [address] Apr, [facility] [address] [facility] [id number] [place] [address] Apr, [facility] [address] [id number] [place] [address] Apr, [facility] [address] [id number] [place] [address] March, [facility] [address] [id number] [place] [address] March, [facility] [address] [id number] [place] [address] Jan, [facility] [address] [id number] [place] [address] Jan, [facility] [address] [id number] [place] [address] Jan, [facility] [address] [id number] [place] [address] Jan, [facility] [address] [facility] [id number] [place] [address] Jan, [facility] [address] [id number] [place] [address] Jan, [facility] [address] [id number] [place] [address] Dec, [facility] [address] [id number] [place] [address] Dec, [facility] [address] [id number] [place] [address] Oct, [facility] [address] [id number] [place] [address] Oct, [facility] [address] [id number] [place] [address] Oct, [facility] [address] [id number] [place] [address] Oct, [facility] [address] [id number] [place] [address] Jul, [facility] [address] [id number] [place] [address] Jul, [facility] [address] [id number] [place] [address] Jul, [facility] [address] [id number] [place] [address] Jun, [facility] [address] [id number] [place] [address] Jun, [facility] [address] [id number] [place] [address] May, [facility] [address] [id number] [place] [address] May, [facility] [address] [id number] [place] [address] March, [facility] [address] [id number] [place] [address] March, [facility] [address] [id number] [place] [address] Feb, [facility] [address] [id number] [place] [address] Feb, [facility] [address] [id number] [place] [address] Jan, [facility] [address] [id number] [place] [address] Dec, [facility] [address] [id number] [place] [address] Dec, [facility] [address] [id number] [place] [address] 15 Dec, 2012 [facility] [address] [id number] [place] [address] Dec, [facility] [address] [id number] [place] [address] Dec, [facility] [address] [id number] [place] [address] Nov, [facility] [address] [id number] [place] [address] Oct, [facility] [address] [id number] [place] [address] Oct, [facility] [address] [id number] [place] [address] Aug, [facility] [address] [id number] [place] [address] Aug, [facility] [address] [id number] [place] [address] Aug, [facility] [address] [id number] [place] [address] Aug, [facility] [address] [id number] [place] [address] Aug, [facility] [address] [id number] [place] [address] Jul, [facility] [address] [id number] [place] [address] 18 Jul, 2012 [facility] [address] [id number] [place] [address] Jun, [facility] [address] [id number] [place] [address] Jun, [facility] [address] [id number] [place] [address] May, [facility] [address] [id number] [place] [address] May, [facility] [address] [id number] [place] [address] May, [facility] [address] [id number] [place] [address] Apr, [facility] [id number] [place] [address] Apr, [facility] [address] [id number] [place] [address] March, [facility] [address] [id number] [place] [address] March, [facility] [address] [id number] [place] [address] Feb, [facility] [address] [id number] [place] [address] Feb, [facility] [address] [id number] [place] [address] Feb, [facility] [address] [id number] [place] [address] Feb, IMMUNIZATIONS No Known Immunizations SOCIAL HISTORY [...] apnea Medical History Gastritis Medical History Nightmares Surgical History cyst removal age 17 Surgical History Gastric Bipass Surgical History right rotator cuff 04/23/16 Hospitalization History stomach stapled 1980 Hospitalization History [facility] GI bleeding 12/2018
--- OUTSIDE RECORDS SUMMARY | 2020-06-17 08:45 | XMS REPORT ---
Author Author Barrie BUSTILLO Organization [facility] Address [address] [place] [address] Care Team Providers Care Ingredient Handler Name Role Phone BARRIE BUSTILLO Unavailable PROBLEMS Type Condition ICD9-CM Code HEB34-YA Code Onset Dates Condition S tatus SNOMED Code Problem Diabetes type 2, controlled E11.9 Ac tive 19514993 Problem Essential hypertension I10 Active 54912116 Problem Primary insomnia F51.01 Active 397 2004 Problem Obstructive sleep apnea G47.33 Active 48069788 Problem Urinary hesitancy R39.11 Active 59 44697 Problem Hesitancy of micturition R39.11 Activ e 8348901 Problem Benign prostatic hyperplasia with lower urinary tract symptoms N40.1 Active 645480208 Problem Controlled type 2 diabetes m ellitus without complication, without long- term current use of insulin E11.9 Active 558777987 Problem Mood disorder F39 Active 856261 05 Problem Acute superficial venous thrombosis of left lower extremit y I82.812 Active [id number] Problem Panlobular emphysema J43.1 Active 8011756 Problem 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.1 Active 937796022 Problem 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 Acti ve 53690395 Problem Arthritis M19.90 Active 0392790 Problem Uncontrolled type 2 diabetes mellitus with hyperglycemia E11.65 Active 271751686 Problem EMIR (obstructive sleep apnea) G47.33 Active 93242146 ALLERGIES No Information ENCOUNTERS Encounter Location Date Diagnosis [facility] [address] [id number] [place] [address] Dec, [facility] [address] [id number] [place] [address] Dec, [facility] [address] [id number] [place] [address] Nov, Panlobular emphysema J43.1 ; Mood disord er F39 and Controlled type 2 diabetes mellitus without complication, without long-term current use of insulin E11.9 [place] [address] [address] Nov, [place] [address] [address] Nov, Increased sputum production R09.3 and OS A (obstructive sleep apnea) G47.33 [place] [address] [address] Oct, [place] [address] [address] Sep, [place] [address] [address] Sep, [place] [address] [address] Sep, [place] [address] [address] Aug, Moderate episode of recurrent major depr essive disorder F33.1 [place] [address] [address] Aug, Moderate episode of recurrent major depr essive disorder F33.1 [place] [address] [address] Aug, Moderate episode of recurrent major depr essive disorder F33.1 [place] [address] [address] Jul, [place] [address] [address] Jul, Foot callus L84 ; Uncontrolled type 2 di abetes mellitus with hyperglycemia E11.65 ; Arthritis M19.90 ; Encounter for immunization Z23 ; Rib pain on right side R07.81 and Lumbar pain M54.5 [place] [address] [address] Jul, [place] [address] [address] Jun, [facility] [address] [address] Jun, [place] [address] [address] Jun, Callus of foot L84 [facility] [address] [address] Jun, [place] [address] [address] Apr, Exercise counseling Z71.82 [place] [address] [address] March, Moderate episode of recurrent major depr essive disorder F33.1 [place] [address] [address] March, Moderate episode of recurrent major depr essive disorder F33.1 [place] [address] [address] March, Exercise counseling Z71.82 [place] [address] [address] March, [place] [address] [address] March, Exercise counseling Z71.82 [place] [address] [address] March, Right otitis media with effusion H65.91 ; 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 and Diabetes type 2, controlled E11.9 [place] [address] [address] March, Moderate episode of recurrent major depr essive disorder F33.1 [place] [address] [address] March, Exercise counseling Z71.82 [place] [address] [address] March, Exercise counseling Z71.82 [place] [address] [address] March, Callus of foot L84 [place] [address] [address] Feb, Moderate episode of recurrent major depr essive disorder F33.1 [place] [address] [address] Feb, [place] [address] [address] Feb, Moderate episode of recurrent major depr essive disorder F33.1 [place] [address] [address] Feb, Diabetes type 2, controlled E11.9 and Es sential hypertension I10 [place] [address] [address] Jan, [place] [address] [address] Jan, Callus of foot L84 [place] [address] [address] Jan, Moderate episode of recurrent major depr essive disorder F33.1 [place] [address] [address] Jan, Moderate episode of recurrent major depr essive disorder F33.1 [place] [address] [address] Dec, Moderate episode of recurrent major depr essive disorder F33.1 [place] [address] [address] Dec, Candidiasis of the esophagus B37.81 [place] [address] [address] 08 Dec, 2018 [facility] [address] [facility] [id number] [place] [address] 04 Dec, 2018 Fecal occult blood test posi tive R19.5 and Anemia, unspecified type D64.9 [place] [address] [address] Nov, Stool color black K92.1 [place] [address] [address] Nov, Stool color black K92.1 [place] [address] [address] Nov, Stool color black K92.1 [place] [address] [address] Nov, [place] [address] [address] Nov, Moderate episode of recurrent major depr essive disorder F33.1 [place] [address] [address] Oct, Moderate episode of recurrent major depr essive disorder F33.1 [place] [address] [address] Oct, Callus of foot L84 and Controlled type 2 diabetes mellitus without complication, without long-term current use of insulin E11.9 [place] [address] [address] Oct, Moderate episode of recurrent major depr essive disorder F33.1 [place] [address] [address] Aug, Mood disorder F39 [place] [address] [address] Aug, Encounter for immunization Z23 [place] [address] [address] Jul, Moderate episode of recurrent major depr essive disorder F33.1 [place] [address] [address] Jul, Moderate episode of recurrent major depr essive disorder F33.1 [place] [address] [address] May, [place] [address] [address] May, Moderate episode of recurrent major depr essive disorder F33.1 [place] [address] [address] May, Moderate episode of recurrent major depr essive disorder F33.1 [place] [address] [address] Apr, Benign prostatic hyperplasia with lower urinary tract symptoms N40.1 and Hesitancy of micturition R39.11 [place] [address] [address] Apr, Moderate episode of recurrent major depr essive disorder F33.1 [place] [address] [address] Apr, Unspecified mood [affective] disorder F3 9 and Primary insomnia F51.01 [place] [address] [address] Apr, Primary insomnia F51.01 [place] [address] [address] March, Foot callus L84 [place] [address] [address] Feb, Medicare annual wellness visit, initial Z00.00 [place] [address] [address] Feb, Acute superficial venous thrombosis of l eft lower extremity I82.812 [place] [address] [address] Feb, [place] [address] [address] Feb, [place] [address] [address] Feb, Acute superficial venous thrombosis of l eft lower extremity I82.812 [facility] [address] [address] Feb, [facility] [address] [id number] [address] [place] [address] Feb, Other specified soft tissue disorders M79.89 and Pain in left leg M79.605 [facility] [address] [address] Jan, Obstructive sleep apnea G47.33 [place] [address] [address] Dec, Obstructive sleep apnea G47.33 and Mood disorder F39 [place] [address] [address] Dec, [facility] [address] [address] Dec, [facility] [address] [address] Nov, Diabetes type 2, controlled E11.[address] [address] Nov, Encounter for immunization Z23 [place] [address] [address] Nov, Primary insomnia F51.01 [place] [address] [address] Oct, Medicare annual wellness visit, subseque nt Z00.00 and Mood disorder F39 [place] [address] [address] Sep, Mood disorder F39 [place] [address] [address] Aug, Primary insomnia F51.01 and Urinary hesi tancy R39.11 [place] [address] [address] Aug, Primary insomnia F51.01 [facility] [address] [address] Jul, Diabetes type 2, controlled E11.9 ; Prim ju insomnia F51.01 and Mood disorder F[address] [facility] [id number] [place] [id number] Jun, Mood disorder F39 [facility] [address] [id number] [place] [id number] Jun, [facility] [address] [address] May, Nightmares F51.5 [place] [address] [address] May, Cognitive complaints R41.9 ; Unspecified mood [affective] disorder F39 and Primary insomnia F51.01 [place] [address] [address] Apr, Mood disorder F39 and Primary insomnia F 51.01 [facility] [address] [address] Apr, Cognitive complaints R41.9 and Unspecifi ed mood [affective] disorder F39 [place] [address] [address] Apr, Cognitive complaints R41.9 and Unspecifi ed mood [affective] disorder F39 [facility] [address] [address] March, [facility] [address] [address] March, Diabetes type 2, controlled E11.9 and Es sential hypertension I10 [facility] [address] [address] March, Primary insomnia F51.01 ; Diabetes type 2, controlled E11.9 and Pain in right shoulder M25.511 [place] [address] [address] March, Cognitive complaints R41.9 and Unspecifi ed mood [affective] disorder F39 [place] [address] [address] Feb, 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 [place] [address] [address] Jan, [place] [address] [address] Jan, [place] [address] [address] Dec, Diabetes type 2, controlled E11.9 ; Hype rtension, benign I10 and Mood disorder F39 [place] [address] [address] Dec, Medicare annual wellness visit, initial Z00.[address] [address] Nov, Medicare welcome exam Z00.00 ; Encounter for immunization Z23 ; Medicare annual wellness visit, initial Z00.00 and Medicare annual wellness visit, subsequent Z00.[address] [address] Oct, [place] [address] [address] Sep, [address] [address] Aug, Encounter for immunization Z23 and Callu s L84 [address] [address] Aug, [address] [address] Jul, Diabetes type 2, controlled E11.9 [place] [address] [address] Jul, Diabetes type 2, controlled E11.9 [facility] [address] [id number] [place] [address] Jun, [facility] [address] [place] [id number] [place] [address] Jun, Hypertension, benign I10 ; Mood disorder F39 and Diabetes type 2, controlled E11.9 [facility] [address] [place] [id number] [place] [address] Jun, Mood disorder F39 [facility] [address] [place] [id number] [place] [address] May, [facility] [address] [place] [id number] [place] [address] May, Mood disorder F39 [facility] [address] [place] [id number] [place] [address] May, Mood disorder F39 [facility] [address] [address] Apr, Controlled type 2 diabetes mellitus with out complication, without long-term current use of insulin E11.9 ; Essential hypertension I10 and Pain in right shoulder M25.511 [facility] [address] [place] [id number] [place] [address] Apr, Mood disorder F39 [facility] [address] [place] [id number] [place] [address] Apr, Pre-op evaluation Z01.818 [facility] [address] [place] [id number] [place] [address] March, Mood disorder F39 [facility] [address] [place] [id number] [place] [address] Feb, [facility] [address] [place] [id number] [place] [address] Feb, Shoulder pain, right M25.511 [facility] [address] [place] [id number] [place] [address] Feb, Shoulder pain, right M25.511 [facility] [address] [address] 08 Feb, 2016 Shoulder pain, right M25.511 [place] [address] [address] Feb, Shoulder pain, right M25.511 [place] [address] [address] Jan, Shoulder pain, right M25.511 [place] [address] [address] Jan, Shoulder pain, right M25.511 [place] [address] [address] Jan, [place] [address] [address] Jan, Diabetes type 2, controlled E11.9 [place] [address] [address] Jan, Shoulder pain, right M25.511 ; Diabetes mellitus without mention of complication, type II or unspecified type, not stated as uncontrolled 250.00 and Diabetes type 2, controlled E11.9 [place] [address] [address] Jan, [place] [address] [address] Jan, [place] [address] [address] Dec, [place] [address] [address] Oct, Callus of foot L84 [place] [address] [address] Oct, Anxiety F41.9 ; Callus of foot L84 and D ysuria R30.0 [place] [address] [address] Sep, Diabetes mellitus without mention of com plication, type II or unspecified type, not stated as uncontrolled 250.00 [facility] [address] [place] [id number] [place] [address] Aug, Diabetes mellitus without mention of com plication, type II or unspecified type, not stated as uncontrolled 250.00 [facility] [address] [id number] [place] [address] Jul, [facility] [address] [address] Jul, [facility] [address] [address] Jul, Diabetes mellitus without mention of com plication, type II or unspecified type, not stated as uncontrolled 250.00 ; Essential hypertension, benign 401.1 and Anxiety state, unspecified 300.00 [facility] [address] [address] Jul, [facility] [address] [address] Jun, [facility] [address] [address] Jun, [facility] [address] [address] May, [facility] [address] [address] May, [facility] [address] [address] Apr, [facility] [address] [address] Apr, Mood disorder 296.90 [facility] [address] [address] March, [facility] [address] [address] Feb, [facility] [address] [address] Feb, [facility] [address] [id number] [place] [address] Jan, [facility] [address] [id number] [place] [address] Jan, [facility] [address] [id number] [place] [address] Jan, [facility] [address] [id number] [place] [address] Jan, [facility] [address] [id number] [place] [address] Jan, [facility] [address] [id number] [place] [address] Jan, [facility] [address] [id number] [place] [address] Jan, [facility] [address] [id number] [place] [address] Jan, [facility] [address] [id number] [place] [address] Dec, [facility] [address] [id number] [place] [address] Dec, [facility] [address] [id number] [place] [address] Nov, [facility] [address] [id number] [place] [address] Nov, [facility] [address] [id number] [place] [address] Nov, [facility] [address] [id number] [place] [address] Nov, [facility] [address] [id number] [place] [address] Oct, [facility] [address] [id number] [place] [address] Oct, [facility] [address] [id number] [place] [address] Oct, [facility] [address] [id number] [place] [address] Oct, [facility] [address] [id number] [place] [address] Oct, [facility] [address] [id number] [place] [address] Oct, [facility] [address] [id number] [place] [address] Oct, [facility] [address] [id number] [place] [address] 17 Oct, 2014 [facility] [address] [id number] [place] [address] 15 Oct, 2014 [facility] [address] [id number] [place] [address] 15 Oct, 2014 [facility] [address] [id number] [place] [address] Sep, [facility] [address] [id number] [place] [address] Sep, [facility] [address] [id number] [place] [address] 18 Sep, 2014 [facility] [address] [id number] [place] [address] 18 Sep, 2014 [facility] [address] [id number] [place] [address] 18 Sep, 2014 [facility] [address] [id number] [place] [address] 18 Sep, 2014 [facility] [address] [id number] [place] [address] 16 Aug, 2014 [facility] [address] [id number] [place] [address] 16 Aug, 2014 [facility] [address] [id number] [place] [address] Jul, [facility] [address] [id number] [place] [address] Jul, [facility] [id number] [place] [address] Jun, [facility] [id number] [place] [address] Jun, [facility] [address] [id number] [place] [address] May, [facility] [address] [id number] [place] [address] May, [facility] [id number] [place] [address] Apr, [facility] [address] [id number] [place] [address] Apr, [facility] [address] [id number] [place] [address] Apr, [facility] [address] [id number] [place] [address] Apr, [facility] [address] [id number] [place] [address] March, [facility] [address] [id number] [place] [address] March, [facility] [address] [id number] [place] [address] Jan, [facility] [address] [id number] [place] [address] Jan, [facility] [address] [id number] [place] [address] Jan, [facility] [address] [id number] [place] [address] Jan, [facility] [address] [id number] [place] [address] Jan, [facility] [address] [id number] [place] [address] Jan, [facility] [address] [id number] [place] [address] Dec, [facility] [address] [id number] [place] [address] Dec, [facility] [address] [id number] [place] [address] Oct, [facility] [address] [id number] [place] [address] Oct, [facility] [address] [id number] [place] [address] Oct, [facility] [address] [id number] [place] [address] Oct, [facility] [address] [id number] [place] [address] Jul, [facility] [address] [id number] [place] [address] Jul, [facility] [address] [id number] [place] [address] Jul, [facility] [address] [id number] [place] [address] Jun, [facility] [address] [id number] [place] [address] Jun, [facility] [address] [id number] [place] [address] May, [facility] [address] [id number] [place] [address] May, [facility] [address] [id number] [place] [address] March, [facility] [address] [id number] [place] [address] March, [facility] [address] [id number] [place] [address] Feb, [facility] [address] [id number] [place] [address] Feb, [facility] [address] [id number] [place] [address] Jan, [facility] [address] [id number] [place] [address] Dec, [facility] [address] [id number] [place] [address] Dec, [facility] [address] [id number] [place] [address] 15 Dec, 2012 [facility] [address] [id number] [place] [address] Dec, [facility] [address] [id number] [place] [address] Dec, [facility] [address] [id number] [place] [address] Nov, [facility] [address] [id number] [place] [address] Oct, [facility] [address] [id number] [place] [address] Oct, [facility] [address] [id number] [place] [address] Aug, [facility] [address] [id number] [place] [address] Aug, [facility] [address] [id number] [place] [address] Aug, [facility] [address] [id number] [place] [address] Aug, [facility] [address] [id number] [place] [address] Aug, [facility] [address] [id number] [place] [address] Jul, [facility] [address] [id number] [place] [address] 18 Jul, 2012 [facility] [id number] [place] [address] Jun, [facility] [id number] [place] [address] Jun, [facility] [id number] [place] [address] May, [facility] [id number] [place] [address] May, [facility] [id number] [place] [address] May, [facility] [id number] [place] [address] Apr, [facility] [id number] [place] [address] Apr, [facility] [id number] [place] [address] March, [facility] [id number] [place] [address] March, [facility] [id number] [place] [address] Feb, [facility] [id number] [place] [address] Feb, [facility] [id number] [place] [address] Feb, [facility] [id number] [place] [address] Feb, IMMUNIZATIONS No Known Immunizations SOCIAL HISTORY Never Assessed REASON FOR VISIT PLAN OF CARE VITAL SIGNS Height 71 in 2014-04-05 Weight 269.3 lbs 2014-04-05 Temperature 97.8 degrees Fahrenheit 2014-04-05 Heart Rate 80 bpm 2014-04-05 Respiratory Rate 18 2014-04-05 Blood pressure systolic 116 mmHg 2014-04-05 Blood pressure diastolic 80 mmHg 2014-04-05 MEDICATIONS Unknown Medications RESULTS No Results PROCEDURES Procedure Date Ordered Result Body Site CHEST X-RAY April 05, 2014 INSTRUCTIONS MEDICATIONS ADMINISTERED No Known Medications [...]
--- OUTSIDE RECORDS SUMMARY | 2020-06-17 08:46 | XMS REPORT ---
Author Author Barrie BUSTILLO Organization [facility] Address [address] [place] [address] Care Team Providers Care Denture Waxer Name Role Phone BARRIE BUSTILLO Unavailable PROBLEMS Type Condition ICD9-CM Code OYT99-[place] Code Onset Dates Condition S tatus SNOMED Code Problem Primary insomnia F51.01 Active 397 2004 Problem Diabetes type 2, controlled E11.9 Ac tive 99398173 Problem Obstructive sleep apnea G47.33 Active 33424182 Problem 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.1 Active 431037227 Problem Acute superficial venous thrombosis of left lower extremit y I82.812 Active [id number] Problem Uncontrolled type 2 diabetes mellitus with hyperglycemia E11.65 Active 031690727 Problem Urinary hesitancy R39.11 Active 59 23492 Problem Arthritis M19.90 Active 3946309 Problem Essential hypertension I10 Active 12364073 Problem Hesitancy of micturition R39.11 Activ e 0378757 Problem Benign prostatic hyperplasia with lower urinary tract symptoms N40.1 Active 690186671 Problem Controlled type 2 diabetes m ellitus without complication, without long- term current use of insulin E11.9 Active 505859718 Problem 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 Acti ve [id number] ALLERGIES No Information ENCOUNTERS Encounter Location Date Diagnosis [facility] [address] [facility] [id number] [address] [place] [phone] Sep, [facility] [address] [facility] [id number] [address] [place] [id number] Aug, [facility] [address] [facility] [id number] [address] [place] [phone] Aug, Moderate episode of recurren t major depressive disorder F33.1 [facility] [address] [facility] [id number] [address] [place] [phone] Aug, Moderate episode of recurren t major depressive disorder F33.1 [facility] [address] [id number] [address] [place] [id number] Jul, [facility] [address] [id number] [address] [place] [phone] Jul, Foot callus L84 ; Uncontroll ed type 2 diabetes mellitus with hyperglycemia E11.65 ; Arthritis M19.90 ; Encounter for immunization Z23 ; Rib pain on right side R07.81 and Lumbar pain M54.5 [facility] [address] [id number] [address] [place] [phone] Jul, [facility] [address] [id number] [address] [place] [id number] Jun, [facility] [address] [id number] [address] [place] [phone] Jun, [facility] [address] [id number] [address] [place] [phone] Jun, Callus of foot L84 [facility] [address] [id number] [address] [place] [phone] Jun, [facility] [address] [id number] [address] [place] [id number] Apr, Exercise counseling Z71.82 [facility] [address] [id number] [address] [place] [phone] March, Moderate episode of recurren t major depressive disorder F33.1 [facility] [address] [id number] [address] [place] [phone] March, Moderate episode of recurren t major depressive disorder F33.1 [facility] [address] [id number] [address] [place] [phone] March, Exercise counseling Z71.82 [facility] [address] [id number] [address] [place] [phone] March, [facility] [address] [id number] [address] [place] [address] March, Exercise counseling Z71.82 [place] [address] [id number] [address] [place] [id number] March, Right otitis media with effu yousuf H65.91 ; 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 and Diabetes type 2, controlled E11.9 [place] [address] [id number] [address] [place] [address] March, Moderate episode of recurren t major depressive disorder F33.1 [place] [address] [id number] [address] [place] [id number] March, Exercise counseling Z71.82 [place] [address] [id number] [address] [place] [address] March, Exercise counseling Z71.82 [place] [address] [facility] [id number] [address] [place] [id number] March, Callus of foot L84 [place] [address] [id number] [address] [place] [phone] Feb, Moderate episode of recurren t major depressive disorder F33.1 [place] [address] [id number] [address] [place] [phone] Feb, [place] [address] [id number] [address] [place] [id number] Feb, Moderate episode of recurren t major depressive disorder F33.1 [place] [address] [id number] [address] [place] [phone] Feb, Diabetes type 2, controlled E11.9 and Essential hypertension I10 [place] [address] [id number] [address] [place] [id number] Jan, [place] [address] [id number] [address] [place] [phone] Jan, Callus of foot L84 [place] [address] [facility] [id number] [address] [place] [phone] Jan, Moderate episode of recurren t major depressive disorder F33.1 [facility] [address] [id number] [address] [place] [id number] Jan, Moderate episode of recurren t major depressive disorder F33.1 [facility] [address] [id number] [address] [place] [phone] Dec, Moderate episode of recurren t major depressive disorder F33.1 [facility] [address] [facility] [id number] [address] [place] [id number] Dec, Candidiasis of the esophagus B37.81 [facility] [address] [facility] [id number] [address] [place] [id number] 08 Dec, 2018 [facility] [address] [facility] [id number] [address] [place] [phone] 04 Dec, 2018 Fecal occult blood test posi tive R19.5 and Anemia, unspecified type D64.9 [facility] [address] [facility] [id number] [address] [place] [phone] Nov, Stool color black K92.1 [place] [address] [facility] [id number] [address] [place] [phone] Nov, Stool color black K92.1 [place] [id number] [facility] [id number] [address] [place] [phone] Nov, Stool color black K92.1 [facility] [address] [facility] [id number] [address] [place] [id number] Nov, [facility] [address] [facility] [id number] [address] [place] [phone] Nov, Moderate episode of recurren t major depressive disorder F33.1 [facility] [address] [facility] [id number] [address] [place] [phone] Oct, Moderate episode of recurren t major depressive disorder F33.1 [facility] [address] [facility] [id number] [address] [place] [phone] Oct, Callus of foot L84 and Contr olled type 2 diabetes mellitus without complication, without long-term current use of insulin E11.9 [place] [address] [id number] [address] [place] [id number] Oct, Moderate episode of recurren t major depressive disorder F33.1 [place] [address] [id number] [address] [place] [id number] Aug, Mood disorder F39 [place] [address] [id number] [address] [place] [id number] Aug, Encounter for immunization Z 23 [place] [address] [id number] [address] [place] [id number] Jul, Moderate episode of recurren t major depressive disorder F33.1 [place] [address] [id number] [address] [place] [phone] Jul, Moderate episode of recurren t major depressive disorder F33.1 [place] [address] [id number] [address] [place] [phone] May, [place] [address] [id number] [address] [place] [phone] May, Moderate episode of recurren t major depressive disorder F33.1 [place] [address] [id number] [address] [place] [phone] May, Moderate episode of recurren t major depressive disorder F33.1 [place] [address] [id number] [address] [place] [id number] Apr, Benign prostatic hyperplasia with lower urinary tract symptoms N40.1 and Hesitancy of micturition R39.11 [place] [address] [id number] [address] [place] [id number] Apr, Moderate episode of recurren t major depressive disorder F33.1 [place] [address] [id number] [address] [place] [id number] Apr, Unspecified mood [affective] disorder F39 and Primary insomnia F51.01 [facility] [address] [id number] [address] [place] [id number] Apr, Primary insomnia F51.01 [facility] [address] [id number] [address] [place] [id number] March, Foot callus L84 [facility] [address] [id number] [address] [place] [id number] Feb, Medicare annual wellness vis it, initial Z00.00 [facility] [address] [id number] [address] [place] [id number] Feb, Acute superficial venous thr ombosis of left lower extremity I82.812 [facility] [address] [id number] [address] [place] [id number] Feb, [facility] [address] [facility] [id number] [address] [place] [id number] Feb, [facility] [address] [id number] [address] [place] [id number] Feb, Acute superficial venous thr ombosis of left lower extremity I82.812 [facility] [address] [id number] [address] [place] [id number] Feb, [facility] [address] [id number] [address] [place] [phone] Feb, Other specified soft tissue disorders M79.89 and Pain in left leg M79.605 [facility] [address] [id number] [address] [place] [id number] Jan, Obstructive sleep apnea G47. 33 [facility] [address] [facility] [id number] [address] [place] [phone] Dec, Obstructive sleep apnea G47. 33 and Mood disorder F39 [facility] [address] [id number] [address] [place] [id number] Dec, [facility] [address] [facility] [id number] [address] [place] [id number] Dec, [facility] [address] [facility] [id number] [address] [place] [id number] Nov, Diabetes type 2, controlled E11.9 [facility] [address] [facility] [id number] [address] [place] [phone] Nov, Encounter for immunization Z 23 [facility] [address] [facility] [id number] [address] [place] [id number] Nov, Primary insomnia F51.01 [facility] [address] [facility] [id number] [address] [place] [id number] 07 Oct, 2017 Medicare annual wellness vis it, subsequent Z00.00 and Mood disorder F39 [place] [address] [facility] [id number] [address] [place] [id number] Sep, Mood disorder F39 [place] [address] [place] [id number] [address] [place] [id number] Aug, Primary insomnia F51.01 and Urinary hesitancy R39.11 [place] [address] [place] [id number] [address] [place] [id number] Aug, Primary insomnia F51.01 [facility] [address] [facility] [id number] [address] [place] [phone] 07 Jul, 2017 Diabetes type 2, controlled E11.9 ; Primary insomnia F51.[address] [facility] [address] [id number] [id number] Jun, Mood disorder F39 [facility] [address] [id number] Monika ALCOCER S [id number] Jun, [facility] [address] [facility] [id number] [address] [place] [id number] May, Nightmares F51.5 [facility] [address] [facility] [id number] [address] [place] [id number] May, Cognitive complaints R41.9 ; Unspecified mood [affective] disorder F39 and Primary insomnia F51.01 [facility] [address] [id number] [address] [place] [id number] Apr, Mood disorder F39 and Primar y insomnia F51.01 [facility] [address] [id number] [address] [place] [id number] Apr, Cognitive complaints R41.9 a nd Unspecified mood [affective] disorder F39 [facility] [address] [id number] [address] [place] [id number] Apr, Cognitive complaints R41.9 a nd Unspecified mood [affective] disorder F39 [facility] [address] [id number] [address] [place] [id number] March, [facility] [address] [id number] [address] [place] [id number] March, Diabetes type 2, controlled E11.9 and Essential hypertension I10 [facility] [address] [id number] [address] [place] [id number] March, Primary insomnia F51.01 ; Di abetes type 2, controlled E11.9 and Pain in right shoulder M25.511 [facility] [address] [id number] [address] [place] [address] March, Cognitive complaints R41.9 a nd Unspecified mood [affective] disorder F39 [facility] [address] [id number] [address] [place] [phone] Feb, Other specified mental disor ders due to known physiological condition F06.8 [facility] [address] [id number] [address] [place] [phone] Jan, [facility] [address] [id number] [address] [place] [id number] Jan, [facility] [address] [id number] [address] [place] [phone] Dec, Diabetes type 2, controlled E11.9 ; Hypertension, benign I10 and Mood disorder F39 [facility] [address] [id number] [address] [place] [id number] 08 Dec, 2016 Medicare annual wellness vis it, initial Z00.00 [facility] [address] [id number] [address] [place] [id number] 05 Nov, 2016 Medicare welcome exam Z00.00 ; Encounter for immunization Z23 ; Medicare annual wellness visit, initial Z00.00 and Medicare annual wellness visit, subsequent Z00.00 [facility] [address] [id number] [address] [place] [id number] Oct, [facility] [address] [id number] [address] [place] [id number] Sep, [facility] [address] [id number] [address] [place] [id number] Aug, Encounter for immunization Z 23 and Callus L84 [facility] [address] [id number] [address] [place] [id number] Aug, [facility] [address] [id number] [address] [place] [id number] Jul, Diabetes type 2, controlled E11.9 [facility] [address] [id number] [address] [place] [id number] Jul, Diabetes type 2, controlled E11.9 [facility] [address] [id number] [address] [place] [phone] Jun, [facility] [address] [id number] [address] [place] [id number] Jun, Hypertension, benign I10 ; M ood disorder F39 and Diabetes type 2, controlled E11.9 [facility] [address] [id number] [address] [place] [id number] Jun, Mood disorder F39 [facility] [address] [id number] [address] [place] [phone] May, [facility] [address] [id number] [address] [place] [id number] May, Mood disorder F39 [facility] [address] [id number] [address] [place] [phone] May, Mood disorder F39 [facility] [address] [id number] [address] [place] [phone] Apr, Controlled type 2 diabetes m ellitus without complication, without long-term current use of insulin E11.9 ; Essential hypertension I10 and Pain in right shoulder M25.511 [facility] [address] [id number] [address] [place] [address] Apr, Mood disorder F39 [facility] [address] [id number] [address] [place] [address] Apr, Pre-op evaluation Z01.818 [facility] [address] [facility] [id number] [address] [place] [id number] March, Mood disorder F39 [facility] [address] [id number] [address] [place] [id number] Feb, [facility] [address] [id number] [address] [place] [id number] Feb, Shoulder pain, right M25.511 [facility] [address] [id number] [address] [place] [id number] Feb, Shoulder pain, right M25.511 [facility] [address] [id number] [address] [place] [id number] Feb, Shoulder pain, right M25.511 [facility] [address] [id number] [address] [place] [address] Feb, Shoulder pain, right M25.511 [facility] [address] [id number] [address] [place] [id number] Jan, Shoulder pain, right M25.511 [facility] [address] [facility] [id number] [address] [place] [id number] Jan, Shoulder pain, right M25.511 [facility] [address] [facility] [id number] [address] [place] [id number] Jan, [place] [address] [place] [id number] [address] [place] [id number] Jan, Diabetes type 2, controlled E11.9 [place] [address] [place] [id number] [address] [place] [phone] Jan, Shoulder pain, right M25.511 ; Diabetes mellitus without mention of complication, type II or unspecified type, not stated as uncontrolled 250.00 and Diabetes type 2, controlled E11.9 [place] [address] [place] [id number] [address] [place] [id number] Jan, [place] [address] [place] [id number] [place] [address] Jan, [place] [address] [place] [id number] [address] [place] [id number] Dec, [place] [address] [place] [id number] [address] [place] [address] Oct, Callus of foot L84 [place] [address] [address] Oct, Anxiety F41.9 ; Callus of fo ot L84 and Dysuria R30.0 [place] [address] [place] [id number] [address] [place] [id number] Sep, Diabetes mellitus without me ntion of complication, type II or unspecified type, not stated as uncontrolled 250.00 [place] [address] [place] [id number] [address] [place] [address] Aug, Diabetes mellitus without me ntion of complication, type II or unspecified type, not stated as uncontrolled 250.00 [place] [address] [place] [id number] [address] [place] [id number] Jul, [place] [address] [place] [id number] [place] [address] [place] [address] Jul, [facility] [address] [id number] [address] [place] [id number] Jul, Diabetes mellitus without me ntion of complication, type II or unspecified type, not stated as uncontrolled 250.00 ; Essential hypertension, benign 401.1 and Anxiety state, unspecified 300.00 [facility] [address] [id number] [address] [place] [id number] Jul, [facility] [address] [id number] [address] [place] [phone] Jun, [facility] [address] [id number] [address] [place] [phone] Jun, [facility] [address] [id number] [address] [place] [address] May, [facility] [address] [id number] [address] [place] [phone] May, [facility] [address] [id number] [address] [place] [id number] Apr, [facility] [address] [id number] [address] [place] [address] Apr, Mood disorder 296.90 [facility] [address] [id number] [address] [place] [id number] March, [facility] [address] [id number] [address] [place] [phone] Feb, [facility] [address] [id number] [address] [place] [phone] Feb, [facility] [address] [id number] [address] [place] [phone] Jan, [facility] [address] [id number] [address] [place] [id number] Jan, [facility] [address] [id number] [address] [place] [id number] Jan, [facility] [address] [id number] [address] [place] [address], [place] [address] Jan, [facility] [address] [id number] [address] [place] [address], [place] [id number] Jan, [facility] [address] [id number] [address] [place] [address], [place] [id number] Jan, [facility] [address] [id number] [address] [place] [address], [place] [phone] Jan, [facility] [address] [id number] [address] [place] [address], [place] [id number] Jan, [facility] [address] [id number] [address] [place] [address], [place] [id number] Dec, [facility] [address] [id number] [address] [place] [address], [place] [id number] Dec, [facility] [address] [id number] [address] [place] [address], [place] [id number] Nov, [facility] [address] [id number] [address] [place] [address], [place] [id number] Nov, [facility] [address] [id number] [address] [place] [address], [place] [id number] Nov, [facility] [address] [id number] [address] [place] [address], [place] [id number] Nov, [facility] [address] [id number] [address] [place] [address], [place] [id number] Oct, [facility] [address] [id number] [address] [place] [address], [place] [id number] Oct, [facility] [address] [id number] [address] [place] [address], [place] [phone] Oct, [facility] [address] [id number] [address] [place] [address], [place] [address] Oct, [facility] [address] [id number] [address] [place] [address], [place] [id number] 24 Oct, 2014 [facility] [address] [id number] [address] [place] [address], [place] [address] 24 Oct, 2014 [facility] [address] [id number] [address] [place] [address], [place] [phone] 17 Oct, 2014 [facility] [address] [id number] [address] [place] [address], [place] [address] 17 Oct, 2014 [facility] [address] [id number] [address] [place] [address], [place] [phone] 15 Oct, 2014 [facility] [address] [id number] [address] [place] [address], [place] [id number] 15 Oct, 2014 [facility] [address] [id number] [address] [place] [address], [place] [id number] 19 Sep, 2014 [facility] [address] [id number] [address] [place] [address], [place] [id number] 19 Sep, 2014 [facility] [address] [id number] [address] [place] [address], [place] [phone] 18 Sep, 2014 [facility] [address] [id number] [address] [place] [address], [place] [id number] 18 Sep, 2014 [facility] [address] [id number] [address] [place] [address], [place] [address] 18 Sep, 2014 [facility] [address] [id number] [address] [place] [address], [place] [id number] 18 Sep, 2014 [facility] [address] [id number] [address] [place] [address], [place] [address] 16 Aug, 2014 [facility] [address] [id number] [address] [place] [address], [place] [address] 16 Aug, 2014 [facility] [address] [id number] [address] [place] [address], [place] [id number] 19 Jul, 2014 [facility] [address] [id number] [address] [place] [address], [place] [address] Jul, [facility] [address] [id number] [facility] [place] [address] Jun, [facility] [address] [id number] [address] [place] [address], [place] [address] Jun, [facility] [address] [id number] [address] [place] [address], [place] [address] May, [facility] [address] [id number] [address] [place] [address], [place] [address] May, [facility] [address] [id number] [address] [place] [address], [place] [address] Apr, [facility] [address] [id number] [address] [place] [address], [place] [address] Apr, [facility] [address] [id number] [address] [place] [address], [place] [address] Apr, [facility] [address] [id number] [address] [place] [address], [place] [address] Apr, [facility] [address] [id number] [address] [place] [address], [place] [id number] March, [facility] [address] [id number] [address] [place] [address], [place] [address] March, [facility] [address] [id number] [address] [place] [address], [place] [address] Jan, [facility] [address] [id number] [address] [place] [address], [place] [address] Jan, [facility] [address] [id number] [address] [place] [address], [place] [address] Jan, [facility] [address] [id number] [address] [place] [address], [place] [address] Jan, [facility] [address] [id number] [address] [place] [address], [place] [address] Jan, [facility] [address] [id number] [address] [place] [address] [address] Jan, [facility] [address] [id number] [address] [place] [address], [place] [address] Dec, [facility] [address] [id number] [address] [place] [address], [place] [address] Dec, [facility] [address] [id number] [address] [place] [address], [place] [id number] Oct, [facility] [address] [id number] [address] [place] [address], [place] [address] Oct, [facility] [address] [id number] [address] [place] [address], [place] [address] Oct, [facility] [address] [id number] [address] [place] [address], [place] [address] Oct, [facility] [address] [id number] [address] [place] [address], [place] [address] Jul, [facility] [address] [id number] [address] [place] [address], [place] [id number] Jul, [facility] [address] [id number] [address] [place] [address], [place] [address] Jul, [facility] [address] [id number] [address] [place] [address], [place] [address] Jun, [facility] [address] [id number] [address] [place] [address], [place] [address] Jun, [facility] [address] [id number] [address] [place] [address], [place] [address] May, [facility] [address] [id number] [address] [place] [address], [place] [phone] May, [facility] [address] [id number] [address] [place] [address], [place] [address] March, [facility] [address] [id number] [address] [place] [address] [address] March, [facility] [address] [id number] [address] [place] [address], [place] [address] Feb, [facility] [address] [id number] [address] [place] [address], [place] [address] Feb, [facility] [address] [id number] [address] [place] [address], [place] [address] Jan, [facility] [address] [id number] [address] [place] [address], [place] [address] Dec, [facility] [address] [id number] [address] [place] [address], [place] [address] Dec, [facility] [address] [id number] [address] [place] [address], [place] [address] Dec, [facility] [address] [id number] [address] [place] [address], [place] [address] Dec, [facility] [address] [id number] [address] [place] [phone] Dec, [facility] [address] [id number] [address] [place] [address], [place] [address] Nov, [facility] [address] [id number] [address] [place] [phone] Oct, [facility] [address] [id number] [address] [place] [id number] Oct, [facility] [address] [id number] [address] [place] [phone] Aug, [facility] [address] [id number] [address] [place] [phone] Aug, [facility] [address] [id number] [address] [place] [id number] Aug, [facility] [address] [id number] [address] [place] [phone] Aug, [facility] [address] [id number] [address] [place] [id number] Aug, [facility] [address] [id number] [address] [place] [address], [place] [address] Jul, [facility] [address] [id number] [address] [place] [id number] Jul, [facility] [address] [id number] [address] [place] [address], [place] [address] Jun, [facility] [address] [id number] [address] [place] [id number] 15 Jun, 2012 [facility] [address] [id number] [address] [place] [address], [place] [address] 30 May, 2012 [facility] [address] [id number] [address] [place] [phone] May, [facility] [address] [id number] [address] [place] [phone] May, [facility] [address] [id number] [address] [place] [phone] Apr, [facility] [address] [id number] [address] [place] [phone] Apr, [facility] [address] [id number] [address] [place] [phone] March, [facility] [address] [id number] [address] [place] [id number] March, [facility] [address] [id number] [address] [place] [phone] Feb, [facility] [address] [id number] [address] [place] [phone] 17 Feb, 2012 [facility] [address] [id number] [address] [place] [id number] 16 Feb, 2012 [facility] [address] [id number] [address] [place] [id number] 16 Feb, 2012 IMMUNIZATIONS No Known Immunizations SOCIAL HISTORY Never Assessed REASON FOR VISIT PLAN OF CARE VITAL SIGNS Height 71 in 2014-05-31 Weight 262.8 lbs 2014-05-31 Temperature 97.6 degrees Fahrenheit 2014-05-31 Heart Rate 80 bpm 2014-05-31 Respiratory Rate 18 2014-05-31 Blood pressure systolic 122 mmHg 2014-05-31 Blood pressure diastolic 80 mmHg 2014-05-31 MEDICATIONS Unknown Medications RESULTS No Results PROCEDURES [...]
--- OUTSIDE RECORDS SUMMARY | 2020-06-17 08:46 | XMS REPORT ---
Author Author Barrie BUSTILLO Organization [facility] Address [address] [place] [address] Care Team Providers Care Rubber Turner Name Role Phone BARRIE BUSTILLO Unavailable PROBLEMS Type Condition ICD9-CM Code OHO44-KJ Code Onset Dates Condition S tatus SNOMED Code Problem Primary insomnia F51.01 Active 397 2004 Problem Diabetes type 2, controlled E11.9 Ac tive 12666578 Problem Obstructive sleep apnea G47.33 Active 01427051 Problem 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.1 Active 256914954 Problem Acute superficial venous thrombosis of left lower extremit y I82.812 Active [id number] Problem Uncontrolled type 2 diabetes mellitus with hyperglycemia E11.65 Active 057716358 Problem Urinary hesitancy R39.11 Active 59 35722 Problem Arthritis M19.90 Active 9033039 Problem Essential hypertension I10 Active 87642495 Problem Hesitancy of micturition R39.11 Activ e 8564814 Problem Benign prostatic hyperplasia with lower urinary tract symptoms N40.1 Active 658115693 Problem Controlled type 2 diabetes m ellitus without complication, without long- term current use of insulin E11.9 Active 080753022 Problem 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 [address] [facility] [id number] [address] [place] [address] Aug, [facility] [address] [facility] [id number] [address] [place] [address] Aug, [facility] [address] [facility] [id number] [address] [place] [address] Jul, [facility] [address] [facility] [id number] [address] [place] [address] Jul, Foot callus L84 ; Uncontroll ed type 2 diabetes mellitus with hyperglycemia E11.65 ; Arthritis M19.90 ; Encounter for immunization Z23 ; Rib pain on right side R07.81 and Lumbar pain M54.5 [facility] [address] [id number] [address] [place] [address] Jul, [facility] [address] [id number] [address] [place] [address] Jun, [facility] [address] [id number] [address] [place] [address] Jun, [facility] [address] [id number] [address] [place] [address] Jun, Callus of foot L84 [facility] [address] [facility] [id number] [place] [address] Jun, [facility] [address] [facility] [id number] [address] [place] [address] Apr, Exercise counseling Z71.82 [facility] [address] [place] [id number] [address] [place] [address] March, Moderate episode of recurren t major depressive disorder F33.1 [facility] [address] [place] [id number] [address] [place] [address] March, Moderate episode of recurren t major depressive disorder F33.1 [facility] [address] [facility] [id number] [address] [place] [address] March, Exercise counseling Z71.82 [facility] [address] [facility] [id number] [address] [place] [address] March, [facility] [address] [facility] [id number] [address] [place] [address] March, Exercise counseling Z71.82 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 [address] [id number] [address] [place] [address] March, Moderate episode of recurren t major depressive disorder F33.1 [facility] [address] [id number] [address] [place] [address] March, Exercise counseling Z71.82 [facility] [address] [id number] [address] [place] [address] March, Exercise counseling Z71.82 [facility] [address] [id number] [address] [place] [address] March, Callus of foot L84 [facility] [address] [id number] [address] [place] [address] Feb, Moderate episode of recurren t major depressive disorder F33.1 [facility] [address] [id number] [address] [place] [address] Feb, [facility] [address] [id number] [address] [place] [address] Feb, Moderate episode of recurren t major depressive disorder F33.1 [facility] [address] [id number] [address] [place] [address] Feb, Diabetes type 2, controlled E11.9 and Essential hypertension I10 [facility] [address] [id number] [address] [place] [address] Jan, [facility] [address] [id number] [address] [place] [address] Jan, Callus of foot L84 [facility] [address] [id number] [address] [place] [address] Jan, Moderate episode of recurren t major depressive disorder F33.1 [facility] [address] [facility] [id number] [address] [place] [address] Jan, Moderate episode of recurren t major depressive disorder F33.1 [facility] [address] [id number] [address] [place] [address] Dec, Moderate episode of recurren t major depressive disorder F33.1 [facility] [address] [facility] [id number] [address] [place] [address] 11 Dec, 2018 Candidiasis of the esophagus B37.81 [facility] [address] [id number] [address] [place] [address] 08 Dec, 2018 [facility] [address] [facility] [id number] [address] [place] [address] 04 Dec, 2018 Fecal occult blood test posi tive R19.5 and Anemia, unspecified type D64.9 [facility] [address] [facility] [id number] [address] [place] [address] Nov, Stool color black K92.1 [place] [address] [facility] [id number] [address] [place] [address] Nov, Stool color black K92.1 [place] [address] [address] [facility] [id number] [address] [place] [address] Nov, Stool color black K92.1 [facility] [address] [facility] [id number] [address] [place] [address] Nov, [facility] [address] [facility] [id number] [address] [place] [address] Nov, Moderate episode of recurren t major depressive disorder F33.1 [facility] [address] [facility] [id number] [address] [place] [address] Oct, Moderate episode of recurren t major depressive disorder F33.1 [facility] [address] [facility] [id number] [address] [place] [address] 18 Oct, 2018 Callus of foot L84 and Contr olled type 2 diabetes mellitus without complication, without long-term current use of insulin E11.9 [facility] [address] [facility] [id number] [address] [place] [address] 10 Oct, 2018 Moderate episode of recurren t major depressive disorder F33.1 [facility] [address] [facility] [id number] [address] [place] [address] 17 Aug, [address] [facility] [address] [facility] [id number] [address] [place] [address] 05 Aug, 2018 Encounter for immunization Z 23 [facility] [address] [facility] [id number] [address] [place] [address] 26 Jul, 2018 Moderate episode of recurren t major depressive disorder F33.1 [facility] [address] [facility] [id number] [address] [place] [address] 24 Jul, 2018 Moderate episode of recurren t major depressive disorder F33.1 [place] [address] [facility] [id number] [address] [place] [address] May, [place] [address] [facility] [id number] [address] [place] [address] May, Moderate episode of recurren t major depressive disorder F33.1 [place] [address] [address] [facility] [id number] [address] [place] [address] May, Moderate episode of recurren t major depressive disorder F33.1 [place] [address] [facility] [id number] [address] [place] [address] Apr, Benign prostatic hyperplasia with lower urinary tract symptoms N40.1 and Hesitancy of micturition R39.11 [place] [address] [address] [facility] [id number] [address] [place] [address] Apr, Moderate episode of recurren t major depressive disorder F33.1 [facility] [address] [facility] [id number] [address] [place] [address] Apr, Unspecified mood [affective] disorder F39 and Primary insomnia F51.01 [place] [address] [address] [facility] [id number] [address] [place] [address] Apr, Primary insomnia F51.01 [facility] [address] [facility] [id number] [address] [place] [address] March, Foot callus L84 [place] [address] [id number] [address] [place] [address] Feb, Medicare annual wellness vis it, initial Z00.00 [facility] [address] [facility] [id number] [address] [place] [address] Feb, Acute superficial venous thr ombosis of left lower extremity I82.812 [facility] [address] [facility] [id number] [address] [place] [address] Feb, [facility] [address] [facility] [id number] [address] [place] [address] Feb, [facility] [address] [facility] [id number] [address] [place] [address] Feb, Acute superficial venous thr ombosis of left lower extremity I82.812 [facility] [address] [facility] [id number] [address] [place] [address] Feb, [facility] [address] [facility] [id number] [address] [place] [address] Feb, Other specified soft tissue disorders M79.89 and Pain in left leg M79.605 [facility] [address] [facility] [id number] [address] [place] [address] Jan, Obstructive sleep apnea G47. 33 [facility] [address] [facility] [id number] [address] [place] [address] Dec, Obstructive sleep apnea G47. [address] [facility] [address] [facility] [id number] [address] [place] [address] Dec, [facility] [address] [facility] [id number] [address] [place] [address] Dec, [facility] [address] [facility] [id number] [address] [place] [address] Nov, Diabetes type 2, controlled E11.9 [facility] [address] [facility] [id number] [address] [place] [address] 09 Nov, 2017 Encounter for immunization Z 23 [facility] [address] [facility] [id number] [address] [place] [address] Nov, Primary insomnia F51.01 [facility] [address] [facility] [id number] [address] [place] [address] 07 Oct, 2017 Medicare annual wellness vis it, subsequent Z00.[address] Mood [address] F39 [facility] [address] [facility] [id number] [address] [place] [address] Sep, Mood disorder F39 [place] [address] [address] [facility] [id number] [address] [place] [address] Aug, Primary insomnia F51.01 and Urinary hesitancy R39.11 [place] [address] [address] [facility] [id number] [address] [place] [address] Aug, Primary insomnia F51.01 [facility] [address] [facility] [id number] [address] [place] [address] 07 Jul, 2017 Diabetes type 2, controlled E11.9 ; Primary insomnia F51.01 and Mood disorder F[address] [place] [address] [id number] [id number] Jun, Mood disorder F39 [facility] [address] [id number] LEODANMonika S [id number] Jun, [facility] [address] [facility] [id number] [address] [place] [address] May, Nightmares F51.5 [facility] [address] [facility] [id number] [address] [place] [address] May, Cognitive complaints R41.9 ; Unspecified mood [affective] disorder F39 and Primary insomnia F51.01 [facility] [address] [facility] [id number] [address] [place] [address] Apr, Mood disorder F39 and Primar y insomnia F51.01 [facility] [address] [facility] [id number] [address] [place] [address] Apr, Cognitive complaints R41.9 a nd Unspecified mood [affective] disorder F39 [facility] [address] [id number] [address] [place] [address] Apr, Cognitive complaints R41.9 a nd Unspecified mood [affective] disorder F39 [facility] [address] [facility] [id number] [address] [place] [address] March, [facility] [address] [facility] [id number] [address] [place] [address] March, Diabetes type 2, controlled E11.9 and Essential hypertension I10 [place] [address] [address] [facility] [id number] [address] [place] [address] March, Primary insomnia F51.01 ; Di abetes type 2, controlled E11.9 and Pain in right shoulder M25.511 [place] [address] [facility] [id number] [address] [place] [address] March, Cognitive complaints R41.9 a nd Unspecified mood [affective] disorder F39 [place] [address] [facility] [id number] [address] [place] [address] Feb, Other specified mental disor ders due to known physiological condition F06.8 [facility] [address] [facility] [id number] [address] [place] [address] Jan, [facility] [address] [facility] [id number] [address] [place] [address] Jan, [facility] [address] [facility] [id number] [address] [place] [address] Dec, Diabetes type 2, controlled E11.9 ; Hypertension, benign I10 and Mood disorder F39 [facility] [address] [facility] [id number] [address] [place] [address] 08 Dec, 2016 Medicare annual wellness vis it, initial Z00.00 [place] [id number] [facility] [id number] [address] [place] [address] 05 Nov, 2016 Medicare welcome exam Z00.00 ; Encounter for immunization Z23 ; Medicare annual wellness visit, initial Z00.00 and Medicare annual wellness visit, subsequent Z00.00 [facility] [address] [id number] [address] [place] [address] Oct, [facility] [address] [id number] [address] [place] [address] Sep, [facility] [address] [id number] [address] [place] [address] Aug, Encounter for immunization Z [address] [facility] [address] [id number] [address] [place] [address] Aug, [facility] [address] [id number] [address] [place] [address] Jul, Diabetes type 2, controlled E11.9 [facility] [address] [id number] [address] [place] [address] Jul, Diabetes type 2, controlled E11.9 [facility] [address] [id number] [address] [place] [address] Jun, [facility] [address] [id number] [address] [place] [address] Jun, Hypertension, benign I10 ; M ood disorder F39 and Diabetes type 2, controlled E11.9 [facility] [address] [id number] [address] [place] [address] Jun, Mood disorder F39 [facility] [address] [id number] [address] [place] [address] May, [facility] [address] [id number] [address] [place] [address] May, Mood disorder F39 [facility] [address] [id number] [address] [place] [address] May, Mood disorder F39 [facility] [address] [id number] [address] [place] [address] Apr, Controlled type 2 diabetes m ellitus without complication, without long-term current use of insulin E11.9 ; Essential hypertension I10 and Pain in right shoulder M25.511 [facility] [address] [id number] [address] [place] [address] 08 Apr, [address] [facility] [address] [id number] [address] [place] [address] 07 Apr, 2016 Pre-op evaluation Z01.818 [facility] [address] [id number] [address] [place] [address] March, Mood disorder F39 [facility] [address] [id number] [address] [place] [address] Feb, [facility] [address] [id number] [address] [place] [address] Feb, Shoulder pain, right M25.511 [facility] [address] [id number] [address] [place] [address] Feb, Shoulder pain, right M25.511 [facility] [address] [id number] [address] [place] [address] Feb, Shoulder pain, right M25.511 [facility] [address] [id number] [address] [place] [address] Feb, Shoulder pain, right M25.511 [facility] [address] [id number] [address] [place] [address] 30 Jan, 2016 Shoulder pain, right M25.511 [facility] [address] [id number] [address] [place] [address] Jan, Shoulder pain, right M25.511 [facility] [address] [id number] [address] [place] [address] Jan, [facility] [address] [id number] [address] [place] [address] Jan, Diabetes type 2, controlled E11.9 [place] [address] [address] Jan, Shoulder pain, right M25.511 ; Diabetes mellitus without mention of complication, type II or unspecified type, not stated as uncontrolled 250.00 and Diabetes type 2, controlled E11.9 [place] [address] [address] Jan, [place] [address] [address] Jan, [place] [address] [address] Dec, [place] [address] [address] Oct, Callus of foot L84 [place] [address] [address] Oct, Anxiety F41.9 ; Callus of fo ot L84 and Dysuria R30.0 [place] [address] [address] [place] [id number] [address] [place] [address] Sep, Diabetes mellitus without me ntion of complication, type II or unspecified type, not stated as uncontrolled 250.00 [place] [address] [address] Aug, Diabetes mellitus without me ntion of complication, type II or unspecified type, not stated as uncontrolled 250.00 [place] [address] [address] [place] [id number] [address] [place] [address] Jul, [place] [address] [address] Jul, [place] [address] [address] Jul, Diabetes mellitus without me ntion of complication, type II or unspecified type, not stated as uncontrolled 250.00 ; Essential hypertension, benign 401.1 and Anxiety state, unspecified 300.00 [facility] [address] [id number] [address] [place] [address], [place] [address] Jul, [facility] [address] [id number] [address] [place] [address], [place] [address] Jun, [facility] [address] [id number] [address] [place] [address], [place] [address] Jun, [facility] [address] [id number] [address] [place] [address], [place] [address] May, [facility] [address] [id number] [address] [place] [address], [place] [address] May, [facility] [address] [id number] [address] [place] [address], [place] [address] Apr, [facility] [address] [id number] [address] [place] [address], [place] [address] Apr, Mood disorder 296.90 [facility] [address] [id number] [address] [place] [address], [place] [address] March, [facility] [address] [id number] [address] [place] [address], [place] [address] Feb, [facility] [address] [id number] [address] [place] [address] Feb, [facility] [address] [id number] [address] [place] [address] Jan, [facility] [address] [id number] [address] [place] [address] Jan, [facility] [address] [id number] [address] [place] [address], [place] [address] Jan, [facility] [address] [id number] [address] [place] [address], [place] [address] Jan, [facility] [address] [id number] [address] [place] [address] Jan, [facility] [address] [id number] [address] [place] [address] Jan, [facility] [address] [id number] [address] [place] [address], [place] [address] Jan, [facility] [address] [id number] [address] [place] [address], [place] [address] Jan, [facility] [address] [id number] [address] [place] [address], [place] [address] Dec, [facility] [address] [id number] [address] [place] [address], [place] [address] Dec, [facility] [address] [id number] [address] [place] [address], [place] [address] Nov, [facility] [address] [id number] [address] [place] [address], [place] [address] Nov, [facility] [address] [id number] [address] [place] [address], [place] [address] Nov, [facility] [address] [id number] [address] [place] [address], [place] [address] Nov, [facility] [address] [id number] [address] [place] [address], [place] [address] Oct, [facility] [address] [id number] [address] [place] [address], [place] [address] Oct, [facility] [address] [id number] [address] [place] [address], [place] [address] Oct, [facility] [address] [id number] [address] [place] [address], [place] [address] Oct, [facility] [address] [id number] [address] [place] [address], [place] [address] Oct, [facility] [address] [id number] [address] [place] [address], [place] [address] Oct, [facility] [address] [id number] [address] [place] [address], [place] [address] Oct, [facility] [address] [id number] [address] [place] [address], [place] [address] 17 Oct, 2014 [facility] [address] [id number] [address] [place] [address], [place] [address] 15 Oct, 2014 [facility] [address] [id number] [address] [place] [address], [place] [address] 15 Oct, 2014 [facility] [address] [id number] [address] [place] [address], [place] [address] Sep, [facility] [address] [id number] [address] [place] [address], [place] [address] Sep, [facility] [address] [id number] [address] [place] [address], [place] [address] Sep, [facility] [address] [id number] [address] [place] [address], [place] [address] Sep, [facility] [address] [id number] [address] [place] [address], [place] [address] Sep, [facility] [address] [id number] [address] [place] [address], [place] [address] Sep, [facility] [address] [id number] [address] [place] [address], [place] [address] Aug, [facility] [address] [id number] [address] [place] [address], [place] [address] Aug, [facility] [address] [id number] [address] [place] [address], [place] [address] Jul, [facility] [address] [id number] [address] [place] [address], [place] [address] Jul, [facility] [address] [id number] [address] [place] [address], [place] [address] Jun, [facility] [address] [id number] [address] [place] [address], [place] [address] Jun, [facility] [address] [id number] [address] [place] [address], [place] [address] May, [facility] [address] [id number] [facility] [place] [address] May, [facility] [address] [id number] [address] [place] [address], [place] [address] Apr, [facility] [address] [id number] [address] [place] [address], [place] [address] Apr, [facility] [address] [id number] [address] [place] [address], [place] [address] Apr, [facility] [address] [id number] [address] [place] [address], [place] [address] Apr, [facility] [address] [id number] [address] [place] [address], [place] [address] March, [facility] [address] [id number] [address] [place] [address], [place] [address] March, [facility] [address] [id number] [address] [place] [address], [place] [address] Jan, [facility] [address] [id number] [address] [place] [address], [place] [address] Jan, [facility] [address] [id number] [address] [place] [address], [place] [address] Jan, [facility] [address] [id number] [address] [place] [address], [place] [address] Jan, [facility] [address] [id number] [address] [place] [address], [place] [address] Jan, [facility] [address] [id number] [address] [place] [address], [place] [address] Jan, [facility] [address] [id number] [address] [place] [address], [place] [address] Dec, [facility] [address] [id number] [address] [place] [address], [place] [address] Dec, [facility] [address] [id number] [address] [place] [address], [place] [address] Oct, [facility] [address] [id number] [address] [place] [address], [place] [address] Oct, [facility] [address] [id number] [address] [place] [address], [place] [address] Oct, [facility] [address] [id number] [address] [place] [address], [place] [address] Oct, [facility] [address] [id number] [address] [place] [address], [place] [address] Jul, [facility] [address] [id number] [address] [place] [address], [place] [address] Jul, [facility] [address] [id number] [address] [place] [address], [place] [address] Jul, [facility] [address] [id number] [address] [place] [address], [place] [address] Jun, [facility] [address] [id number] [address] [place] [address], [place] [address] Jun, [facility] [address] [id number] [address] [place] [address], [place] [address] May, [facility] [address] [id number] [address] [place] [address], [place] [address] May, [facility] [address] [id number] [address] [place] [address], [place] [address] March, [facility] [address] [id number] [address] [place] [address], [place] [address] March, [facility] [address] [id number] [address] [place] [address], [place] [address] Feb, [facility] [address] [id number] [address] [place] [address], [place] [address] Feb, [facility] [address] [id number] [address] [place] [address], [place] [address] Jan, [facility] [address] [id number] [address] [place] [address], [place] [address] Dec, [facility] [address] [id number] [address] [place] [address], [place] [address] Dec, [facility] [address] [id number] [address] [place] [address], [place] [address] 15 Dec, 2012 [facility] [address] [id number] [address] [place] [address], [place] [address] 14 Dec, 2012 [facility] [address] [id number] [address] [place] [address], [place] [address] Dec, [facility] [address] [id number] [address] [place] [address], [place] [address] Nov, [facility] [address] [id number] [address] [place] [address], [place] [address] Oct, [facility] [address] [id number] [address] [place] [address] Oct, [facility] [address] [id number] [address] [place] [address], [place] [address] Aug, [facility] [address] [id number] [address] [place] [address], [place] [address] Aug, [facility] [address] [id number] [address] [place] [address] Aug, [facility] [address] [id number] [address] [place] [address] 09 Aug, 2012 [facility] [address] [id number] [address] [place] [address], [place] [address] Aug, [facility] [address] [id number] [address] [place] [address] Jul, [facility] [address] [id number] [address] [place] [address], [place] [address] 18 Jul, 2012 [facility] [address] [id number] [address] [place] [address] Jun, [facility] [address] [id number] [address] [place] [address] Jun, [facility] [address] [id number] [address] [place] [address] May, [facility] [address] [id number] [address] [place] [address] May, [facility] [address] [id number] [address] [place] [address] May, [facility] [address] [id number] [address] [place] [address] Apr, [facility] [address] [id number] [address] [place] [address] Apr, [facility] [address] [id number] [address] [place] [address] March, [facility] [address] [id number] [address] [place] [address] March, [facility] [address] [id number] [address] [place] [address] Feb, [facility] [address] [id number] [address] [place] [address] Feb, [facility] [address] [id number] [address] [place] [address] Feb, [facility] [address] [id number] [address] [place] [address] Feb, IMMUNIZATIONS No Known Immunizations SOCIAL HISTORY [...]
--- OUTSIDE RECORDS SUMMARY | 2020-06-17 08:46 | XMS REPORT ---
Author Author Barrie BUSTILLO Organization [facility] Address [address] [place] [address] Care Team Providers Care Mirror Framer Name Role Phone BARRIE BUSTILLO Unavailable PROBLEMS Type Condition ICD9-CM Code [id number] Code Onset Dates Condition S tatus SNOMED Code Problem Primary insomnia F51.01 Active 397 2004 Problem Diabetes type 2, controlled E11.9 Ac tive 09047264 Problem Obstructive sleep apnea G47.33 Active 85319623 Problem 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.1 Active 301759961 Problem Acute superficial venous thrombosis of left lower extremit y I82.812 Active [id number] Problem Uncontrolled type 2 diabetes mellitus with hyperglycemia E11.65 Active 048208405 Problem Urinary hesitancy R39.11 Active 59 41017 Problem Arthritis M19.90 Active 3196865 Problem Essential hypertension I10 Active 53983496 Problem Hesitancy of micturition R39.11 Activ e 5501115 Problem Benign prostatic hyperplasia with lower urinary tract symptoms N40.1 Active 639251684 Problem Controlled type 2 diabetes m ellitus without complication, without long- term current use of insulin E11.9 Active 745635046 Problem 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 Acti ve [id number] ALLERGIES No Information ENCOUNTERS Encounter Location Date Diagnosis [facility] [address] [facility] [id number] [address] [place] [id number] Aug, [facility] [address] [facility] [id number] [address] [place] [address] Aug, [facility] [address] [facility] [id number] [address] [place] [address] Jul, [facility] [address] [facility] [id number] [address] [place] [address] Jul, Foot callus L84 ; Uncontroll ed type 2 diabetes mellitus with hyperglycemia E11.65 ; Arthritis M19.90 ; Encounter for immunization Z23 ; Rib pain on right side R07.81 and Lumbar pain M54.5 [facility] [address] [id number] [address] [place] [address] Jul, [facility] [address] [id number] [address] [place] [address] Jun, [facility] [address] [id number] [address] [place] [address] Jun, [facility] [address] [id number] [address] [place] [address] Jun, Callus of foot L84 [facility] [address] [facility] [id number] [place] [address] Jun, [facility] [address] [facility] [id number] [address] [place] [address] Apr, Exercise counseling Z71.82 [facility] [address] [place] [id number] [address] [place] [address] March, Moderate episode of recurren t major depressive disorder F33.1 [facility] [address] [place] [id number] [address] [place] [address] March, Moderate episode of recurren t major depressive disorder F33.1 [facility] [address] [facility] [id number] [address] [place] [address] March, Exercise counseling Z71.82 [facility] [address] [facility] [id number] [address] [place] [address] March, [facility] [address] [facility] [id number] [address] [place] [address] March, Exercise counseling Z71.82 [facility] [address] [facility] [id number] [address] [place] [address] March, Right otitis media with effu yousuf H65.91 ; 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 and Diabetes type 2, controlled E11.9 [facility] [address] [id number] [address] [place] [address] March, Moderate episode of recurren t major depressive disorder F33.1 [facility] [address] [id number] [address] [place] [address] March, Exercise counseling Z71.82 [facility] [address] [id number] [address] [place] [address] March, Exercise counseling Z71.82 [facility] [address] [id number] [address] [place] [address] March, Callus of foot L84 [facility] [address] [id number] [address] [place] [address] Feb, Moderate episode of recurren t major depressive disorder F33.1 [facility] [address] [id number] [address] [place] [address] Feb, [facility] [address] [id number] [address] [place] [address] Feb, Moderate episode of recurren t major depressive disorder F33.1 [facility] [address] [id number] [address] [place] [address] Feb, Diabetes type 2, controlled E11.9 and Essential hypertension I10 [facility] [address] [id number] [address] [place] [address] Jan, [facility] [address] [id number] [address] [place] [address] Jan, Callus of foot L84 [facility] [address] [id number] [address] [place] [address] Jan, Moderate episode of recurren t major depressive disorder F33.1 [facility] [address] [facility] [id number] [address] [place] [address] Jan, Moderate episode of recurren t major depressive disorder F33.1 [facility] [address] [id number] [address] [place] [address] Dec, Moderate episode of recurren t major depressive disorder F33.1 [facility] [address] [facility] [id number] [address] [place] [address] 11 Dec, 2018 Candidiasis of the esophagus B37.81 [facility] [address] [id number] [address] [place] [address] 08 Dec, 2018 [facility] [address] [facility] [id number] [address] [place] [address] 04 Dec, 2018 Fecal occult blood test posi tive R19.5 and Anemia, unspecified type D64.9 [facility] [address] [facility] [id number] [address] [place] [address] Nov, Stool color black K92.1 [place] [address] [facility] [id number] [address] [place] [address] Nov, Stool color black K92.1 [place] [address] [facility] [id number] [address] [place] [address] Nov, Stool color black K92.1 [facility] [address] [facility] [id number] [address] [place] [address] Nov, [facility] [address] [facility] [id number] [address] [place] [address] Nov, Moderate episode of recurren t major depressive disorder F33.1 [facility] [address] [facility] [id number] [address] [place] [address] Oct, Moderate episode of recurren t major depressive disorder F33.1 [facility] [address] [facility] [id number] [address] [place] [address] 18 Oct, 2018 Callus of foot L84 and Contr olled type 2 diabetes mellitus without complication, without long-term current use of insulin E11.9 [facility] [address] [facility] [id number] [address] [place] [address] 10 Oct, 2018 Moderate episode of recurren t major depressive disorder F33.1 [facility] [address] [facility] [id number] [address] [place] [address] 17 Aug, 2018 Mood disorder F39 [facility] [address] [facility] [id number] [address] [place] [address] 05 Aug, 2018 Encounter for immunization Z 23 [facility] [address] [facility] [id number] [address] [place] [address] 26 Jul, 2018 Moderate episode of recurren t major depressive disorder F33.1 [facility] [address] [facility] [id number] [address] [place] [address] 24 Jul, 2018 Moderate episode of recurren t major depressive disorder F33.1 [place] [address] [facility] [id number] [address] [place] [address] May, [place] [address] [facility] [id number] [address] [place] [address] May, Moderate episode of recurren t major depressive disorder F33.1 [place] [address] [facility] [id number] [address] [place] [address] May, Moderate episode of recurren t major depressive disorder F33.1 [place] [address] [facility] [id number] [address] [place] [address] Apr, Benign prostatic hyperplasia with lower urinary tract symptoms N40.1 and Hesitancy of micturition R39.11 [place] [address] [facility] [id number] [address] [place] [address] Apr, Moderate episode of recurren t major depressive disorder F33.1 [facility] [address] [facility] [id number] [address] [place] [address] Apr, Unspecified mood [affective] disorder F39 and Primary insomnia F51.01 [place] [address] [facility] [id number] [address] [place] [address] Apr, Primary insomnia F51.01 [facility] [address] [facility] [id number] [address] [place] [address] March, Foot callus L84 [place] [address] [id number] [address] [place] [address] Feb, Medicare annual wellness vis it, initial Z00.00 [facility] [address] [facility] [id number] [address] [place] [address] Feb, Acute superficial venous thr ombosis of left lower extremity I82.812 [facility] [address] [facility] [id number] [address] [place] [address] Feb, [facility] [address] [facility] [id number] [address] [place] [address] Feb, [facility] [address] [facility] [id number] [address] [place] [address] Feb, Acute superficial venous thr ombosis of left lower extremity I82.812 [facility] [address] [facility] [id number] [address] [place] [address] Feb, [facility] [address] [facility] [id number] [address] [place] [address] Feb, Other specified soft tissue disorders M79.89 and Pain in left leg M79.605 [facility] [address] [facility] [id number] [address] [place] [address] Jan, Obstructive sleep apnea G47. 33 [facility] [address] [facility] [id number] [address] [place] [address] Dec, Obstructive sleep apnea G47. 33 and Mood disorder F39 [facility] [address] [facility] [id number] [address] [place] [address] Dec, [facility] [address] [facility] [id number] [address] [place] [address] Dec, [facility] [address] [facility] [id number] [address] [place] [address] Nov, Diabetes type 2, controlled E11.9 [facility] [address] [facility] [id number] [address] [place] [address] 09 Nov, 2017 Encounter for immunization Z 23 [facility] [address] [facility] [id number] [address] [place] [address] Nov, Primary insomnia F51.01 [facility] [address] [facility] [id number] [address] [place] [address] 07 Oct, 2017 Medicare annual wellness vis it, subsequent Z00.00 and Mood disorder F39 [facility] [address] [facility] [id number] [address] [place] [address] Sep, Mood disorder F39 [place] [address] [facility] [id number] [address] [place] [address] Aug, Primary insomnia F51.01 and Urinary hesitancy R39.11 [place] [address] [facility] [id number] [address] [place] [address] Aug, Primary insomnia F51.01 [facility] [address] [facility] [id number] [address] [place] [address] 07 Jul, 2017 Diabetes type 2, controlled E11.9 ; Primary insomnia F51.01 and Mood disorder F[address] [place] [address] [id number] [id number] Jun, Mood disorder F39 [facility] [address] [id number] LEODAN[place] S [id number] Jun, [facility] [address] [facility] [id number] [address] [place] [address] May, Nightmares F51.5 [facility] [address] [facility] [id number] [address] [place] [address] May, Cognitive complaints R41.9 ; Unspecified mood [affective] disorder F39 and Primary insomnia F51.01 [facility] [address] [facility] [id number] [address] [place] [address] Apr, Mood disorder F39 and Primar y insomnia F51.01 [facility] [address] [facility] [id number] [address] [place] [address] Apr, Cognitive complaints R41.9 a nd Unspecified mood [affective] disorder F39 [facility] [address] [id number] [address] [place] [address] Apr, Cognitive complaints R41.9 a nd Unspecified mood [affective] disorder F39 [facility] [address] [facility] [id number] [address] [place] [address] March, [facility] [address] [facility] [id number] [address] [place] [address] March, Diabetes type 2, controlled E11.9 and Essential hypertension I10 [place] [address] [facility] [id number] [address] [place] [address] March, Primary insomnia F51.01 ; Di abetes type 2, controlled E11.9 and Pain in right shoulder M25.511 [place] [address] [facility] [id number] [address] [place] [address] March, Cognitive complaints R41.9 a nd Unspecified mood [affective] disorder F39 [place] [address] [facility] [id number] [address] [place] [address] Feb, Other specified mental disor ders due to known physiological condition F06.8 [facility] [address] [facility] [id number] [address] [place] [address] Jan, [facility] [address] [facility] [id number] [address] [place] [address] Jan, [facility] [address] [facility] [id number] [address] [place] [address] Dec, Diabetes type 2, controlled E11.9 ; Hypertension, benign I10 and Mood disorder F39 [facility] [address] [facility] [id number] [address] [place] [address] 08 Dec, 2016 Medicare annual wellness vis it, initial Z00.00 [place] [id number] [facility] [id number] [address] [place] [address] 05 Nov, 2016 Medicare welcome exam Z00.00 ; Encounter for immunization Z23 ; Medicare annual wellness visit, initial Z00.00 and Medicare annual wellness visit, subsequent Z00.00 [facility] [address] [id number] [address] [place] [address] Oct, [facility] [address] [id number] [address] [place] [address] Sep, [facility] [address] [id number] [address] [place] [address] Aug, Encounter for immunization Z 23 and Callus L84 [facility] [address] [id number] [address] [place] [address] Aug, [facility] [address] [id number] [address] [place] [address] Jul, Diabetes type 2, controlled E11.9 [facility] [address] [id number] [address] [place] [address] Jul, Diabetes type 2, controlled E11.9 [facility] [address] [id number] [address] [place] [address] Jun, [facility] [address] [id number] [address] [place] [address] Jun, Hypertension, benign I10 ; M ood disorder F39 and Diabetes type 2, controlled E11.9 [facility] [address] [id number] [address] [place] [address] Jun, Mood disorder F39 [facility] [address] [id number] [address] [place] [address] May, [facility] [address] [id number] [address] [place] [address] May, Mood disorder F39 [facility] [address] [id number] [address] [place] [address] May, Mood disorder F39 [facility] [address] [id number] [address] [place] [address] Apr, Controlled type 2 diabetes m ellitus without complication, without long-term current use of insulin E11.9 ; Essential hypertension I10 and Pain in right shoulder M25.511 [facility] [address] [id number] [address] [place] [address] 08 Apr, 2016 Mood disorder F39 [facility] [address] [id number] [address] [place] [address] 07 Apr, 2016 Pre-op evaluation Z01.818 [facility] [address] [id number] [address] [place] [address] March, Mood disorder F39 [facility] [address] [id number] [address] [place] [address] Feb, [facility] [address] [id number] [address] [place] [address] Feb, Shoulder pain, right M25.511 [facility] [address] [id number] [address] [place] [address] Feb, Shoulder pain, right M25.511 [facility] [address] [id number] [address] [place] [address] Feb, Shoulder pain, right M25.511 [facility] [address] [id number] [address] [place] [address] Feb, Shoulder pain, right M25.511 [facility] [address] [id number] [address] [place] [address] 30 Jan, 2016 Shoulder pain, right M25.511 [facility] [address] [id number] [address] [place] [address] Jan, Shoulder pain, right M25.511 [facility] [address] [id number] [address] [place] [address] Jan, [facility] [address] [id number] [address] [place] [address] Jan, Diabetes type 2, controlled E11.9 [place] [address] [address] Jan, Shoulder pain, right M25.511 ; Diabetes mellitus without mention of complication, type II or unspecified type, not stated as uncontrolled 250.00 and Diabetes type 2, controlled E11.9 [place] [address] [address] Jan, [place] [address] [address] Jan, [place] [address] [address] Dec, [place] [address] [address] Oct, Callus of foot L84 [place] [address] [address] Oct, Anxiety F41.9 ; Callus of fo ot L84 and Dysuria R30.0 [place] [address] [place] [id number] [address] [place] [address] Sep, Diabetes mellitus without me ntion of complication, type II or unspecified type, not stated as uncontrolled 250.00 [place] [address] [address] Aug, Diabetes mellitus without me ntion of complication, type II or unspecified type, not stated as uncontrolled 250.00 [place] [address] [place] [id number] [address] [place] [address] Jul, [place] [address] [id number] Jul, [place] [address] [address] Jul, Diabetes mellitus without me ntion of complication, type II or unspecified type, not stated as uncontrolled 250.00 ; Essential hypertension, benign 401.1 and Anxiety state, unspecified 300.00 [facility] [address] [id number] [address] [place] [address], [place] [address] Jul, [facility] [address] [id number] [address] [place] [address], [place] [address] Jun, [facility] [address] [id number] [address] [place] [address], [place] [address] Jun, [facility] [address] [id number] [address] [place] [address], [place] [address] May, [facility] [address] [id number] [address] [place] [address], [place] [address] May, [facility] [address] [id number] [address] [place] [address], [place] [address] Apr, [facility] [address] [id number] [address] [place] [address], [place] [address] Apr, Mood disorder 296.90 [facility] [address] [id number] [address] [place] [address], [place] [address] March, [facility] [address] [id number] [address] [place] [address], [place] [address] Feb, [facility] [address] [id number] [address] [place] [address] Feb, [facility] [address] [id number] [address] [place] [address] Jan, [facility] [address] [id number] [address] [place] [id number] Jan, [facility] [address] [id number] [address] [place] [address], [place] [id number] Jan, [facility] [address] [id number] [address] [place] [address], [place] [address] Jan, [facility] [address] [id number] [address] [place] [id number] Jan, [facility] [address] [id number] [address] [place] [id number] Jan, [facility] [address] [id number] [address] [place] [address], [place] [id number] Jan, [facility] [address] [id number] [address] [place] [address], [place] [address] Jan, [facility] [address] [id number] [address] [place] [address], [place] [id number] Dec, [facility] [address] [id number] [address] [place] [address], [place] [id number] Dec, [facility] [address] [id number] [address] [place] [address], [place] [address] Nov, [facility] [address] [id number] [address] [place] [address], [place] [address] Nov, [facility] [address] [id number] [address] [place] [address], [place] [address] Nov, [facility] [address] [id number] [address] [place] [address], [place] [id number] Nov, [facility] [address] [id number] [address] [place] [address], [place] [id number] Oct, [facility] [address] [id number] [address] [place] [address], [place] [id number] Oct, [facility] [address] [id number] [address] [place] [address], [place] [id number] Oct, [facility] [address] [id number] [address] [place] [address], [place] [id number] Oct, [facility] [facility] [address] [id number] [address] [place] [address], [place] [address] Oct, [facility] [address] [id number] [address] [place] [address], [place] [address] Oct, [facility] [address] [id number] [address] [place] [address], [place] [address] Oct, [facility] [address] [id number] [address] [place] [address], [place] [address] 17 Oct, 2014 [facility] [address] [id number] [address] [place] [address], [place] [address] 15 Oct, 2014 [facility] [address] [id number] [address] [place] [address], [place] [address] 15 Oct, 2014 [facility] [address] [id number] [address] [place] [address], [place] [address] Sep, [facility] [address] [id number] [address] [place] [address], [place] [address] Sep, [facility] [address] [id number] [address] [place] [address], [place] [address] Sep, [facility] [address] [id number] [address] [place] [address], [place] [address] Sep, [facility] [address] [id number] [address] [place] [address], [place] [address] Sep, [facility] [address] [id number] [address] [place] [address], [place] [address] Sep, [facility] [address] [id number] [address] [place] [address], [place] [address] Aug, [facility] [address] [id number] [address] [place] [address], [place] [address] Aug, [facility] [address] [id number] [address] [place] [address], [place] [address] Jul, [facility] [address] [id number] [address] [place] [address], [place] [address] Jul, [facility] [address] [id number] [address] [place] [address], [place] [address] Jun, [facility] [address] [id number] [address] [place] [address], [place] [address] Jun, [facility] [address] [id number] [address] [place] [address], [place] [address] May, [facility] [address] [id number] [facility] [place] [address] May, [facility] [address] [id number] [address] [place] [address], [place] [address] Apr, [facility] [address] [id number] [address] [place] [address], [place] [address] Apr, [facility] [address] [id number] [address] [place] [address], [place] [address] Apr, [facility] [address] [id number] [address] [place] [address], [place] [address] Apr, [facility] [address] [id number] [address] [place] [address], [place] [address] March, [facility] [address] [id number] [address] [place] [address], [place] [address] March, [facility] [address] [id number] [address] [place] [address], [place] [address] Jan, [facility] [address] [id number] [address] [place] [address], [place] [address] Jan, [facility] [address] [id number] [address] [place] [address], [place] [address] Jan, [facility] [address] [id number] [address] [place] [address], [place] [address] Jan, [facility] [address] [id number] [address] [place] [address], [place] [address] Jan, [facility] [address] [id number] [address] [place] [address], [place] [address] Jan, [facility] [address] [id number] [address] [place] [address], [place] [address] Dec, [facility] [address] [id number] [address] [place] [address], [place] [address] Dec, [facility] [address] [id number] [address] [place] [address], [place] [address] Oct, [facility] [address] [id number] [address] [place] [address], [place] [address] Oct, [facility] [address] [id number] [address] [place] [address], [place] [address] Oct, [facility] [address] [id number] [address] [place] [address], [place] [address] Oct, [facility] [address] [id number] [address] [place] [address], [place] [address] Jul, [facility] [address] [id number] [address] [place] [address], [place] [address] Jul, [facility] [address] [id number] [address] [place] [address], [place] [address] Jul, [facility] [address] [id number] [address] [place] [address], [place] [address] Jun, [facility] [address] [id number] [address] [place] [address], [place] [address] Jun, [facility] [address] [id number] [address] [place] [address], [place] [address] May, [facility] [address] [id number] [address] [place] [address], [place] [address] May, [facility] [address] [id number] [address] [place] [address], [place] [address] March, [facility] [address] [id number] [address] [place] [address], [place] [address] March, [facility] [address] [id number] [address] [place] [address], [place] [address] Feb, [facility] [address] [id number] [address] [place] [address], [place] [address] Feb, [facility] [address] [id number] [address] [place] [address], [place] [address] Jan, [facility] [address] [id number] [address] [place] [address], [place] [address] Dec, [facility] [address] [id number] [address] [place] [address], [place] [address] Dec, [facility] [address] [id number] [address] [place] [address], [place] [address] 15 Dec, 2012 [facility] [address] [id number] [address] [place] [address], [place] [address] 14 Dec, 2012 [facility] [address] [id number] [address] [place] [address], [place] [address] Dec, [facility] [address] [id number] [address] [place] [address], [place] [address] Nov, [facility] [address] [id number] [address] [place] [address], [place] [address] Oct, [facility] [address] [id number] [address] [place] [address] Oct, [facility] [address] [id number] [address] [place] [address], [place] [address] Aug, [facility] [address] [id number] [address] [place] [address], [place] [address] Aug, [facility] [address] [id number] [address] [place] [address] Aug, [facility] [address] [id number] [address] [place] [id number] 09 Aug, 2012 [facility] [address] [id number] [address] [place] [address], [place] [address] Aug, [facility] [address] [id number] [address] [place] [address] Jul, [facility] [address] [id number] [address] [place] [address], [place] [address] 18 Jul, 2012 [facility] [address] [id number] [address] [place] [address] Jun, [facility] [address] [id number] [address] [place] [address] Jun, [facility] [address] [id number] [address] [place] [address] May, [facility] [address] [id number] [address] [place] [address] May, [facility] [address] [id number] [address] [place] [address] May, [facility] [address] [id number] [address] [place] [address] Apr, [facility] [address] [id number] [address] [place] [address] Apr, [facility] [address] [id number] [address] [place] [address] March, [facility] [address] [id number] [address] [place] [address] March, [facility] [address] [id number] [address] [place] [id number] Feb, [facility] [address] [id number] [address] [place] [id number] Feb, [facility] [address] [id number] [address] [place] [id number] Feb, [facility] [address] [id number] [address] [place] [address] Feb, IMMUNIZATIONS No Known Immunizations SOCIAL HISTORY [...]
--- OUTSIDE RECORDS SUMMARY | 2020-06-17 08:46 | XMS REPORT ---
Author Author Barrie BUSTILLO Organization [facility] Address [address] [place] [address] Care Team Providers Care Commercial Artist Lettering Name Role Phone BARRIE BUSTILLO Unavailable PROBLEMS Type Condition ICD9-CM Code ZRA34-HQ Code Onset Dates Condition S tatus SNOMED Code Problem Primary insomnia F51.01 Active 397 2004 Problem Diabetes type 2, controlled E11.9 Ac tive 65157695 Problem Obstructive sleep apnea G47.33 Active 07640472 Problem 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.1 Active 996360054 Problem Acute superficial venous thrombosis of left lower extremit y I82.812 Active [id number] Problem Uncontrolled type 2 diabetes mellitus with hyperglycemia E11.65 Active 313597805 Problem Urinary hesitancy R39.11 Active 59 76340 Problem Arthritis M19.90 Active 6035890 Problem Essential hypertension I10 Active 57310556 Problem Hesitancy of micturition R39.11 Activ e 5850261 Problem Benign prostatic hyperplasia with lower urinary tract symptoms N40.1 Active 669687915 Problem Controlled type 2 diabetes m ellitus without complication, without long- term current use of insulin E11.9 Active 714230699 Problem 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 Acti ve [id number] ALLERGIES No Information ENCOUNTERS Encounter Location Date Diagnosis [facility] [address] [facility] [id number] [address] [place] [address] Sep, [facility] [address] [facility] [id number] [address] [place] [address] Aug, [facility] [address] [facility] [id number] [address] [place] [address] Aug, Moderate episode of recurren t major depressive disorder F33.1 [facility] [address] [facility] [id number] [address] [place] [address] Aug, Moderate episode of recurren t major depressive disorder F33.1 [facility] [address] [id number] [address] [place] [address] Jul, [facility] [address] [id number] [address] [place] [address] Jul, Foot callus L84 ; Uncontroll ed type 2 diabetes mellitus with hyperglycemia E11.65 ; Arthritis M19.90 ; Encounter for immunization Z23 ; Rib pain on right side R07.81 and Lumbar pain M54.5 [facility] [address] [id number] [address] [place] [address] Jul, [facility] [address] [id number] [address] [place] [address] Jun, [facility] [address] [id number] [address] [place] [id number] Jun, [facility] [address] [id number] [address] [place] [address] Jun, Callus of foot L84 [facility] [address] [id number] [address] [place] [id number] Jun, [facility] [address] [id number] [address] [place] [address] Apr, Exercise counseling Z71.82 [facility] [address] [id number] [address] [place] [address] March, Moderate episode of recurren t major depressive disorder F33.1 [facility] [address] [id number] [address] [place] [id number] March, Moderate episode of recurren t major depressive disorder F33.1 [facility] [address] [id number] [address] [place] [address] March, Exercise counseling Z71.82 [facility] [address] [id number] [address] [place] [address] March, [facility] [address] [id number] [address] [place] [address] March, Exercise counseling Z71.82 [place] [address] [id number] [address] [place] [address] March, Right otitis media with effu yousuf H65.91 ; 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 and Diabetes type 2, controlled E11.9 [place] [address] [id number] [address] [place] [id number] March, Moderate episode of recurren t major depressive disorder F33.1 [place] [address] [id number] [address] [place] [address] March, Exercise counseling Z71.82 [place] [address] [id number] [address] [place] [address] March, Exercise counseling Z71.82 [place] [address] [facility] [id number] [address] [place] [address] March, Callus of foot L84 [place] [address] [id number] [address] [place] [id number] Feb, Moderate episode of recurren t major depressive disorder F33.1 [place] [address] [id number] [address] [place] [address] Feb, [place] [address] [id number] [address] [place] [address] Feb, Moderate episode of recurren t major depressive disorder F33.1 [place] [address] [id number] [address] [place] [address] Feb, Diabetes type 2, controlled E11.9 and Essential hypertension I10 [place] [address] [id number] [address] [place] [address] Jan, [place] [address] [id number] [address] [place] [address] Jan, Callus of foot L84 [place] [address] [facility] [id number] [address] [place] [id number] Jan, Moderate episode of recurren t major depressive disorder F33.1 [facility] [address] [id number] [address] [place] [address] Jan, Moderate episode of recurren t major depressive disorder F33.1 [facility] [address] [id number] [address] [place] [address] Dec, Moderate episode of recurren t major depressive disorder F33.1 [facility] [address] [facility] [id number] [address] [place] [address] Dec, Candidiasis of the esophagus B37.81 [facility] [address] [facility] [id number] [address] [place] [address] 08 Dec, 2018 [facility] [address] [facility] [id number] [address] [place] [phone] 04 Dec, 2018 Fecal occult blood test posi tive R19.5 and Anemia, unspecified type D64.9 [facility] [address] [facility] [id number] [address] [place] [address] Nov, Stool color black K92.1 [place] [address] [facility] [id number] [address] [place] [address] Nov, Stool color black K92.1 [place] [address] [facility] [id number] [address] [place] [address] Nov, Stool color black K92.1 [facility] [address] [facility] [id number] [address] [place] [address] Nov, [facility] [address] [facility] [id number] [address] [place] [address] Nov, Moderate episode of recurren t major depressive disorder F33.1 [facility] [address] [facility] [id number] [address] [place] [address] Oct, Moderate episode of recurren t major depressive disorder F33.1 [facility] [address] [facility] [id number] [address] [place] [address] Oct, Callus of foot L84 and Contr olled type 2 diabetes mellitus without complication, without long-term current use of insulin E11.9 [place] [address] [id number] [address] [place] [id number] Oct, Moderate episode of recurren t major depressive disorder F33.1 [place] [address] [id number] [address] [place] [address] Aug, Mood disorder F39 [place] [address] [id number] [address] [place] [address] Aug, Encounter for immunization Z 23 [place] [address] [id number] [address] [place] [address] Jul, Moderate episode of recurren t major depressive disorder F33.1 [place] [address] [id number] [address] [place] [id number] Jul, Moderate episode of recurren t major depressive disorder F33.1 [place] [address] [id number] [address] [place] [address] May, [place] [address] [id number] [address] [place] [id number] May, Moderate episode of recurren t major depressive disorder F33.1 [place] [address] [id number] [address] [place] [address] May, Moderate episode of recurren t major depressive disorder F33.1 [place] [address] [id number] [address] [place] [address] Apr, Benign prostatic hyperplasia with lower urinary tract symptoms N40.1 and Hesitancy of micturition R39.11 [place] [address] [id number] [address] [place] [address] Apr, Moderate episode of recurren t major depressive disorder F33.1 [place] [address] [id number] [address] [place] [address] Apr, Unspecified mood [affective] disorder F39 and Primary insomnia F51.01 [facility] [address] [id number] [address] [place] [address] Apr, Primary insomnia F51.01 [facility] [address] [id number] [address] [place] [address] March, Foot callus L84 [facility] [address] [id number] [address] [place] [id number] Feb, Medicare annual wellness vis it, initial Z00.00 [facility] [address] [id number] [address] [place] [id number] Feb, Acute superficial venous thr ombosis of left lower extremity I82.812 [facility] [address] [id number] [address] [place] [id number] Feb, [facility] [address] [facility] [id number] [address] [place] [address] Feb, [facility] [address] [id number] [address] [place] [id number] Feb, Acute superficial venous thr ombosis of left lower extremity I82.812 [facility] [address] [id number] [address] [place] [id number] Feb, [facility] [address] [id number] [address] [place] [id number] Feb, Other specified soft tissue disorders M79.89 and Pain in left leg M79.605 [facility] [address] [id number] [address] [place] [address] Jan, Obstructive sleep apnea G47. 33 [facility] [address] [facility] [id number] [address] [place] [address] Dec, Obstructive sleep apnea G47. 33 and Mood disorder F39 [facility] [address] [id number] [address] [place] [phone] Dec, [facility] [address] [facility] [id number] [address] [place] [id number] Dec, [facility] [address] [facility] [id number] [address] [place] [address] Nov, Diabetes type 2, controlled E11.9 [facility] [address] [facility] [id number] [address] [place] [address] Nov, Encounter for immunization Z 23 [facility] [address] [facility] [id number] [address] [place] [address] Nov, Primary insomnia F51.01 [facility] [address] [facility] [id number] [address] [place] [phone] 07 Oct, 2017 Medicare annual wellness vis it, subsequent Z00.00 and Mood disorder F39 [place] [address] [facility] [id number] [address] [place] [address] Sep, Mood disorder F39 [place] [address] [place] [id number] [address] [place] [address] Aug, Primary insomnia F51.01 and Urinary hesitancy R39.11 [place] [address] [place] [id number] [address] [place] [address] Aug, Primary insomnia F51.01 [facility] [address] [facility] [id number] [address] [place] [id number] 07 Jul, 2017 Diabetes type 2, controlled E11.9 ; Primary insomnia F51.[address] [facility] [address] [id number] [id number] Jun, Mood disorder F39 [facility] [address] [id number] Monika ALCOCER S [id number] Jun, [facility] [address] [facility] [id number] [address] [place] [phone] May, Nightmares F51.5 [facility] [address] [facility] [id number] [address] [place] [phone] May, Cognitive complaints R41.9 ; Unspecified mood [affective] disorder F39 and Primary insomnia F51.01 [facility] [address] [id number] [address] [place] [address] Apr, Mood disorder F39 and Primar y insomnia F51.01 [facility] [address] [id number] [address] [place] [address] Apr, Cognitive complaints R41.9 a nd Unspecified mood [affective] disorder F39 [facility] [address] [id number] [address] [place] [phone] Apr, Cognitive complaints R41.9 a nd Unspecified mood [affective] disorder F39 [facility] [address] [id number] [address] [place] [id number] March, [facility] [address] [id number] [address] [place] [address] March, Diabetes type 2, controlled E11.9 and Essential hypertension I10 [facility] [address] [id number] [address] [place] [address] March, Primary insomnia F51.01 ; Di abetes type 2, controlled E11.9 and Pain in right shoulder M25.511 [facility] [address] [id number] [address] [place] [phone] March, Cognitive complaints R41.9 a nd Unspecified mood [affective] disorder F39 [facility] [address] [id number] [address] [place] [address] Feb, Other specified mental disor ders due to known physiological condition F06.8 [facility] [address] [id number] [address] [place] [address] Jan, [facility] [address] [id number] [address] [place] [address] Jan, [facility] [address] [id number] [address] [place] [id number] Dec, Diabetes type 2, controlled E11.9 ; Hypertension, benign I10 and Mood disorder F39 [facility] [address] [id number] [address] [place] [address] 08 Dec, 2016 Medicare annual wellness vis it, initial Z00.00 [facility] [address] [id number] [address] [place] [id number] 05 Nov, 2016 Medicare welcome exam Z00.00 ; Encounter for immunization Z23 ; Medicare annual wellness visit, initial Z00.00 and Medicare annual wellness visit, subsequent Z00.00 [facility] [address] [id number] [address] [place] [phone] Oct, [facility] [address] [id number] [address] [place] [id number] Sep, [facility] [address] [id number] [address] [place] [id number] Aug, Encounter for immunization Z 23 and Callus L84 [facility] [address] [id number] [address] [place] [address] Aug, [facility] [address] [id number] [address] [place] [address] Jul, Diabetes type 2, controlled E11.9 [facility] [address] [id number] [address] [place] [address] Jul, Diabetes type 2, controlled E11.9 [facility] [address] [id number] [address] [place] [id number] Jun, [facility] [address] [id number] [address] [place] [address] Jun, Hypertension, benign I10 ; M ood disorder F39 and Diabetes type 2, controlled E11.9 [facility] [address] [id number] [address] [place] [address] Jun, Mood disorder F39 [facility] [address] [id number] [address] [place] [address] May, [facility] [address] [id number] [address] [place] [address] May, Mood disorder F39 [facility] [address] [id number] [address] [place] [address] May, Mood disorder F39 [facility] [address] [id number] [address] [place] [address] Apr, Controlled type 2 diabetes m ellitus without complication, without long-term current use of insulin E11.9 ; Essential hypertension I10 and Pain in right shoulder M25.511 [facility] [address] [id number] [address] [place] [phone] Apr, Mood disorder F39 [facility] [address] [id number] [address] [place] [address] Apr, Pre-op evaluation Z01.818 [facility] [address] [facility] [id number] [address] [place] [phone] March, Mood disorder F39 [facility] [address] [id number] [address] [place] [address] Feb, [facility] [address] [id number] [address] [place] [id number] Feb, Shoulder pain, right M25.511 [facility] [address] [id number] [address] [place] [address] Feb, Shoulder pain, right M25.511 [facility] [address] [id number] [address] [place] [address] Feb, Shoulder pain, right M25.511 [facility] [address] [id number] [address] [place] [address] Feb, Shoulder pain, right M25.511 [facility] [address] [id number] [address] [place] [address] Jan, Shoulder pain, right M25.511 [facility] [address] [facility] [id number] [address] [place] [id number] Jan, Shoulder pain, right M25.511 [facility] [address] [facility] [id number] [address] [place] [phone] Jan, [place] [address] [place] [id number] [address] [place] [id number] Jan, Diabetes type 2, controlled E11.9 [place] [address] [place] [id number] [address] [place] [address] Jan, Shoulder pain, right M25.511 ; Diabetes mellitus without mention of complication, type II or unspecified type, not stated as uncontrolled 250.00 and Diabetes type 2, controlled E11.9 [place] [address] [place] [id number] [address] [place] [phone] Jan, [place] [address] [place] [id number] [place] [address] Jan, [place] [address] [place] [id number] [address] [place] [address] Dec, [place] [address] [place] [id number] [address] [place] [address] Oct, Callus of foot L84 [place] [address] [phone] Oct, Anxiety F41.9 ; Callus of fo ot L84 and Dysuria R30.0 [place] [address] [place] [id number] [address] [place] [id number] Sep, Diabetes mellitus without me ntion of complication, type II or unspecified type, not stated as uncontrolled 250.00 [place] [address] [place] [id number] [address] [place] [id number] Aug, Diabetes mellitus without me ntion of complication, type II or unspecified type, not stated as uncontrolled 250.00 [place] [address] [place] [id number] [address] [place] [address] Jul, [place] [address] [place] [id number] [place] [address] [place] [address] Jul, [facility] [address] [id number] [address] [place] [id number] Jul, Diabetes mellitus without me ntion of complication, type II or unspecified type, not stated as uncontrolled 250.00 ; Essential hypertension, benign 401.1 and Anxiety state, unspecified 300.00 [facility] [address] [id number] [address] [place] [address] Jul, [facility] [address] [id number] [address] [place] [id number] Jun, [facility] [address] [id number] [address] [place] [id number] Jun, [facility] [address] [id number] [address] [place] [phone] May, [facility] [address] [id number] [address] [place] [phone] May, [facility] [address] [id number] [address] [place] [id number] Apr, [facility] [address] [id number] [address] [place] [phone] Apr, Mood disorder 296.90 [facility] [address] [id number] [address] [place] [id number] March, [facility] [address] [id number] [address] [place] [id number] Feb, [facility] [address] [id number] [address] [place] [id number] Feb, [facility] [address] [id number] [address] [place] [id number] Jan, [facility] [address] [id number] [address] [place] [id number] Jan, [facility] [address] [id number] [address] [place] [phone] Jan, [facility] [address] [id number] [address] [place] [address], [place] [address] Jan, [facility] [address] [id number] [address] [place] [address], [place] [address] Jan, [facility] [address] [id number] [address] [place] [address], [place] [address] Jan, [facility] [address] [id number] [address] [place] [address], [place] [address] Jan, [facility] [address] [id number] [address] [place] [address], [place] [id number] Jan, [facility] [address] [id number] [address] [place] [address], [place] [id number] Dec, [facility] [address] [id number] [address] [place] [address], [place] [address] Dec, [facility] [address] [id number] [address] [place] [address], [place] [id number] Nov, [facility] [address] [id number] [address] [place] [address], [place] [address] Nov, [facility] [address] [id number] [address] [place] [address], [place] [address] Nov, [facility] [facility] [address] [id number] [address] [place] [address], [place] [address] Nov, [facility] [address] [id number] [address] [place] [address], [place] [address] Oct, [facility] [address] [id number] [address] [place] [address], [place] [address] Oct, [facility] [address] [id number] [address] [place] [address], [place] [address] Oct, [facility] [address] [id number] [address] [place] [address], [place] [address] Oct, [facility] [address] [id number] [address] [place] [address], [place] [address] 24 Oct, 2014 [facility] [address] [id number] [address] [place] [address], [place] [address] 24 Oct, 2014 [facility] [address] [id number] [address] [place] [address], [place] [address] 17 Oct, 2014 [facility] [address] [id number] [address] [place] [address], [place] [address] 17 Oct, 2014 [facility] [address] [id number] [address] [place] [address], [place] [address] 15 Oct, 2014 [facility] [address] [id number] [address] [place] [address], [place] [address] 15 Oct, 2014 [facility] [address] [id number] [address] [place] [address], [place] [address] 19 Sep, 2014 [facility] [address] [id number] [address] [place] [address], [place] [address] 19 Sep, 2014 [facility] [address] [id number] [address] [place] [address], [place] [address] 18 Sep, 2014 [facility] [address] [id number] [address] [place] [address], [place] [address] 18 Sep, 2014 [facility] [address] [id number] [address] [place] [address], [place] [address] 18 Sep, 2014 [facility] [address] [id number] [address] [place] [address], [place] [address] 18 Sep, 2014 [facility] [address] [id number] [address] [place] [address], [place] [address] 16 Aug, 2014 [facility] [address] [id number] [address] [place] [address], [place] [address] 16 Aug, 2014 [facility] [address] [id number] [address] [place] [address], [place] [address] 19 Jul, 2014 [facility] [address] [id number] [address] [place] [address], [place] [address] Jul, [facility] [address] [id number] [facility] [place] [address] Jun, [facility] [address] [id number] [address] [place] [address], [place] [address] Jun, [facility] [address] [id number] [address] [place] [address], [place] [address] May, [facility] [address] [id number] [address] [place] [address], [place] [address] May, [facility] [address] [id number] [address] [place] [address], [place] [address] Apr, [facility] [address] [id number] [address] [place] [address], [place] [address] Apr, [facility] [address] [id number] [address] [place] [address], [place] [address] Apr, [facility] [address] [id number] [address] [place] [address], [place] [address] Apr, [facility] [address] [id number] [address] [place] [address], [place] [address] March, [facility] [address] [id number] [address] [place] [address], [place] [address] March, [facility] [address] [id number] [address] [place] [address], [place] [address] Jan, [facility] [address] [id number] [address] [place] [address], [place] [address] Jan, [facility] [address] [id number] [address] [place] [address], [place] [address] Jan, [facility] [address] [id number] [address] [place] [address], [place] [address] Jan, [facility] [address] [id number] [address] [place] [address], [place] [address] Jan, [facility] [address] [id number] [address] [place] [address], [place] [address] Jan, [facility] [address] [id number] [address] [place] [address], [place] [address] Dec, [facility] [address] [id number] [address] [place] [address], [place] [address] Dec, [facility] [address] [id number] [address] [place] [address], [place] [address] Oct, [facility] [address] [id number] [address] [place] [address], [place] [address] Oct, [facility] [address] [id number] [address] [place] [address], [place] [address] Oct, [facility] [address] [id number] [address] [place] [address], [place] [address] Oct, [facility] [address] [id number] [address] [place] [address], [place] [address] Jul, [facility] [address] [id number] [address] [place] [address], [place] [address] Jul, [facility] [address] [id number] [address] [place] [address], [place] [address] Jul, [facility] [address] [id number] [address] [place] [address], [place] [address] Jun, [facility] [address] [id number] [address] [place] [address], [place] [address] Jun, [facility] [address] [id number] [address] [place] [address], [place] [address] May, [facility] [address] [id number] [address] [place] [address], [place] [address] May, [facility] [address] [id number] [address] [place] [address], [place] [address] March, [facility] [address] [id number] [address] [place] [address], [place] [address] March, [facility] [address] [id number] [address] [place] [address], [place] [address] Feb, [facility] [address] [id number] [address] [place] [address], [place] [address] Feb, [facility] [address] [id number] [address] [place] [address], [place] [address] Jan, [facility] [address] [id number] [address] [place] [address], [place] [address] Dec, [facility] [address] [id number] [address] [place] [address], [place] [address] Dec, [facility] [address] [id number] [address] [place] [address], [place] [address] Dec, [facility] [address] [id number] [address] [place] [address], [place] [address] Dec, [facility] [address] [id number] [address] [place] [address] Dec, [facility] [address] [id number] [address] [place] [address], [place] [address] Nov, [facility] [address] [id number] [address] [place] [address] Oct, [facility] [address] [id number] [address] [place] [address] Oct, [facility] [address] [id number] [address] [place] [address] Aug, [facility] [address] [id number] [address] [place] [address] Aug, [facility] [address] [id number] [address] [place] [address] Aug, [facility] [address] [id number] [address] [place] [address] Aug, [facility] [address] [id number] [address] [place] [address] Aug, [facility] [address] [id number] [address] [place] [address], [place] [address] Jul, [facility] [address] [id number] [address] [place] [address] Jul, [facility] [address] [id number] [address] [place] [address], [place] [address] Jun, [facility] [address] [id number] [address] [place] [address] 15 Jun, 2012 [facility] [address] [id number] [address] [place] [address], [place] [address] 30 May, 2012 [facility] [address] [id number] [address] [place] [address] May, [facility] [address] [id number] [address] [place] [address] May, [facility] [address] [id number] [address] [place] [address] Apr, [facility] [address] [id number] [address] [place] [address] Apr, [facility] [address] [id number] [address] [place] [address] March, [facility] [address] [id number] [address] [place] [address] March, [facility] [address] [id number] [address] [place] [address] Feb, [facility] [address] [id number] [address] [place] [address] 17 Feb, 2012 [facility] [address] [id number] [address] [place] [address] 16 Feb, 2012 [facility] [address] [id number] [address] [place] [address] 16 Feb, 2012 IMMUNIZATIONS No Known Immunizations [...]
--- OUTSIDE RECORDS SUMMARY | 2020-06-17 08:47 | XMS REPORT ---
Author Author Barrie BUSTILLO Organization [facility] Address [address] [place] [address] Care Team Providers Care Lead Man Over All [employer] In [employer] Name Role Phone BARRIE BUSTILLO Unavailable PROBLEMS Type Condition ICD9-CM Code XNI19-CS Code Onset Dates Condition S tatus SNOMED Code Problem Essential hypertension I10 Active 32500470 Problem Urinary hesitancy R39.11 Active 59 75265 Problem Obstructive sleep apnea G47.33 Active 48378883 Problem Controlled type 2 diabetes m ellitus without complication, without long- term current use of insulin E11.9 Active 168339749 Problem Primary insomnia F51.01 Active 397 2004 Problem 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 Acti ve 97984739 Problem Diabetes type 2, controlled E11.9 Ac tive 38595336 Problem 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.1 Active 953030098 Problem Acute superficial venous thrombosis of left lower extremit y I82.812 Active [id number] Problem Hesitancy of micturition R39.11 Activ e 0433234 Problem Benign prostatic hyperplasia with lower urinary tract symptoms N40.1 Active 108267121 ALLERGIES No Information ENCOUNTERS Encounter Location Date Diagnosis [facility] [address] [facility] [id number] [address] [place] [address] Jul, [facility] [address] [facility] [id number] [address] [place] [address] Jul, [facility] [address] [facility] [id number] [address] [place] [address] Jul, [facility] [address] [facility] [id number] [address] [place] [address] Jul, [facility] [address] [facility] [id number] [address] [place] [address] Jun, [facility] [address] [id number] [address] [place] [address] Jun, [facility] [address] [id number] [address] [place] [address] Jun, Callus of foot L84 [facility] [address] [id number] [address] [place] [address] Jun, [facility] [address] [facility] [id number] [address] [place] [address] Apr, Exercise counseling Z71.82 [facility] [address] [id number] [address] [place] [address] March, Moderate episode of recurren t major depressive disorder F33.1 [place] [address] [facility] [id number] [address] [place] [address] March, Moderate episode of recurren t major depressive disorder F33.1 [place] [address] [facility] [id number] [address] [place] [address] March, Exercise counseling Z71.82 [facility] [address] [facility] [id number] [address] [place] [address] March, [facility] [address] [facility] [id number] [address] [place] [address] March, Exercise counseling Z71.82 [place] [address] [facility] [id number] [address] [place] [address] March, Right otitis media with effu yousuf H65.91 ; 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 and Diabetes type 2, controlled E11.9 [facility] [address] [id number] [address] [place] [address] March, Moderate episode of recurren t major depressive disorder F33.1 [facility] [address] [facility] [id number] [address] [place] [address] March, Exercise counseling Z71.82 [facility] [address] [facility] [id number] [address] [place] [address] March, Exercise counseling Z71.82 [facility] [address] [facility] [id number] [address] [place] [address] March, Callus of foot L84 [place] [address] [facility] [id number] [address] [place] [address] Feb, Moderate episode of recurren t major depressive disorder F33.1 [place] [address] [facility] [id number] [address] [place] [address] Feb, [facility] [address] [facility] [id number] [address] [place] [address] Feb, Moderate episode of recurren t major depressive disorder F33.1 [place] [address] [facility] [id number] [address] [place] [address] Feb, Diabetes type 2, controlled E11.9 and Essential hypertension I10 [place] [address] [place] [id number] [address] [place] [address] Jan, [facility] [address] [place] [id number] [address] [place] [address] Jan, Callus of foot L84 [place] [address] [place] [id number] [address] [place] [address] Jan, Moderate episode of recurren t major depressive disorder F33.1 [facility] [address] [place] [id number] [address] [place] [address] Jan, Moderate episode of recurren t major depressive disorder F33.1 [facility] [address] [facility] [id number] [address] [place] [address] Dec, Moderate episode of recurren t major depressive disorder F33.1 [place] [address] [facility] [id number] [address] [place] [address] Dec, Candidiasis of the esophagus B37.81 [facility] [address] [facility] [id number] [address] [place] [address] Dec, [facility] [address] [facility] [id number] [address] [place] [address] Dec, Fecal occult blood test posi tive R19.5 and Anemia, unspecified type D64.9 [place] [address] [facility] [id number] [address] [place] [address] Nov, Stool color black K92.1 [place] [address] [facility] [id number] [address] [place] [address] Nov, Stool color black K92.1 [place] [address] [facility] [id number] [address] [place] [address] Nov, Stool color black K92.1 [place] [address] [facility] [id number] [address] [place] [address] Nov, [place] [address] [facility] [id number] [address] [place] [address] Nov, Moderate episode of recurren t major depressive disorder F33.1 [place] [address] [place] [id number] [address] [place] [address] Oct, Moderate episode of recurren t major depressive disorder F33.1 [place] [address] [facility] [id number] [address] [place] [address] Oct, Callus of foot L84 and Contr olled type 2 diabetes mellitus without complication, without long-term current use of insulin E11.9 [place] [address] [facility] [id number] [address] [place] [address] Oct, Moderate episode of recurren t major depressive disorder F33.1 [place] [address] [facility] [id number] [address] [place] [address] Aug, Mood disorder F39 [place] [address] [facility] [id number] [address] [place] [address] Aug, Encounter for immunization Z 23 [place] [address] [facility] [id number] [address] [place] [address] Jul, Moderate episode of recurren t major depressive disorder F33.1 [facility] [address] [id number] [address] [place] [address] Jul, Moderate episode of recurren t major depressive disorder F33.1 [facility] [address] [id number] [address] [place] [address] May, [facility] [address] [id number] [address] [place] [address] May, Moderate episode of recurren t major depressive disorder F33.1 [facility] [address] [id number] [address] [place] [address] May, Moderate episode of recurren t major depressive disorder F33.1 [facility] [address] [id number] [address] [place] [address] Apr, Benign prostatic hyperplasia with lower urinary tract symptoms N40.1 and Hesitancy of micturition R39.11 [place] [address] [id number] [address] [place] [address] Apr, Moderate episode of recurren t major depressive disorder F33.1 [facility] [address] [id number] [address] [place] [address] Apr, Unspecified mood [affective] disorder F39 and Primary insomnia F51.01 [facility] [address] [facility] [id number] [address] [place] [address] Apr, Primary insomnia F51.01 [facility] [address] [facility] [id number] [address] [place] [address] March, Foot callus L84 [facility] [address] [id number] [address] [place] [address] Feb, Medicare annual wellness vis it, initial Z00.00 [facility] [address] [id number] [address] [place] [address] Feb, Acute superficial venous thr ombosis of left lower extremity I82.812 [facility] [address] [id number] [address] [place] [address] Feb, [facility] [address] [facility] [id number] [address] [place] [address] Feb, [facility] [address] [facility] [id number] [address] [place] [address] Feb, Acute superficial venous thr ombosis of left lower extremity I82.812 [facility] [address] [facility] [id number] [address] [place] [address] Feb, [facility] [address] [facility] [id number] [address] [place] [address] Feb, Other specified soft tissue disorders M79.89 and Pain in left leg M79.605 [facility] [address] [facility] [id number] [address] [place] [address] Jan, Obstructive sleep apnea G47. 33 [facility] [address] [place] [id number] [address] [place] [address] Dec, Obstructive sleep apnea G47. 33 and Mood disorder F39 [facility] [id number] [place] [address] Dec, [facility] [address] [place] [id number] [address] [place] [address] Dec, [facility] [address] [place] [id number] [address] [place] [address] Nov, Diabetes type 2, controlled E11.9 [facility] [address] [facility] [id number] [address] [place] [address] Nov, Encounter for immunization Z 23 [facility] [address] [address] Nov, Primary insomnia F51.01 [facility] [address] [facility] [id number] [address] [place] [address] 07 Oct, 2017 Medicare annual wellness vis it, subsequent Z00.00 and Mood disorder F39 [facility] [address] [facility] [id number] [address] [place] [address] Sep, Mood disorder F39 [facility] [address] [facility] [id number] [address] [place] [address] Aug, Primary insomnia F51.01 and Urinary hesitancy R39.11 [facility] [address] [facility] [id number] [address] [place] [address] Aug, Primary insomnia F51.01 [facility] [address] [facility] [id number] [address] [place] [address] Jul, Diabetes type 2, controlled E11.9 ; Primary insomnia F51.01 and Mood disorder F39 [place] [id number] [facility] [id number] [id number] Jun, Mood disorder F39 [facility] [address] [id number] [id number] Jun, [facility] [address] [facility] [id number] [address] [place] [address] May, Nightmares F51.5 [facility] [address] [facility] [id number] [address] [place] [address] May, Cognitive complaints R41.9 ; Unspecified mood [affective] disorder F39 and Primary insomnia F51.01 [facility] [address] [facility] [id number] [address] [place] [address] Apr, Mood disorder F39 and Primar y insomnia F51.01 [facility] [address] [facility] [id number] [address] [place] [address] Apr, Cognitive complaints R41.9 a nd Unspecified mood [affective] disorder F39 [facility] [address] [facility] [id number] [address] [place] [address] Apr, Cognitive complaints R41.9 a nd Unspecified mood [affective] disorder F39 [facility] [address] [facility] [id number] [address] [place] [address] March, [facility] [address] [facility] [id number] [address] [place] [address] March, Diabetes type 2, controlled E11.9 and Essential hypertension I10 [place] [address] [facility] [id number] [address] [place] [address] March, Primary insomnia F51.01 ; Di abetes type 2, controlled E11.9 and Pain in right shoulder M25.511 [facility] [address] [facility] [id number] [address] [place] [address] March, Cognitive complaints R41.9 a nd Unspecified mood [affective] disorder F39 [place] [address] [facility] [id number] [address] [place] [address] Feb, Other specified mental disor ders due to known physiological condition F06.8 [place] [address] [place] [id number] [address] [place] [address] Jan, [place] [address] [place] [id number] [address] [place] [address] Jan, [facility] [address] [place] [id number] [address] [place] [address] Dec, Diabetes type 2, controlled E11.9 ; Hypertension, benign I10 and Mood disorder F39 [facility] [address] [place] [id number] [address] [place] [address] 08 Dec, 2016 Medicare annual wellness vis it, initial Z00.00 [place] [address] [facility] [id number] [address] [place] [address] 05 Nov, 2016 Medicare welcome exam Z00.00 ; Encounter for immunization Z23 ; Medicare annual wellness visit, initial Z00.00 and Medicare annual wellness visit, subsequent Z00.00 [place] [address] [facility] [id number] [address] [place] [address] Oct, [facility] [address] [place] [id number] [address] [place] [address] Sep, [place] [address] [place] [address] Aug, Encounter for immunization Z 23 and Callus L84 [facility] [address] [place] [id number] [address] [place] [address] Aug, [facility] [address] [facility] [id number] [address] [place] [address] Jul, Diabetes type 2, controlled E11.9 [facility] [address] [place] [id number] [address] [place] [address] Jul, Diabetes type 2, controlled E11.9 [facility] [address] [place] [id number] [address] [place] [address] Jun, [facility] [address] [place] [id number] [place] [address] Jun, Hypertension, benign I10 ; M ood disorder F39 and Diabetes type 2, controlled E11.9 [facility] [address] [place] [id number] [address] [place] [address] Jun, Mood disorder F39 [facility] [address] [place] [id number] [address] [place] [address] May, [facility] [address] [place] [id number] [address] [place] [address] May, Mood disorder F39 [place] [address] [place] [id number] [address] [place] [address] May, Mood disorder F39 [facility] [address] [place] [id number] [address] [place] [address] 16 Apr, 2016 Controlled type 2 diabetes m ellitus without complication, without long-term current use of insulin E11.9 ; Essential hypertension I10 and Pain in right shoulder M25.511 [facility] [address] [facility] [id number] [address] [place] [address] 08 Apr, 2016 Mood disorder F39 [facility] [address] [place] [id number] [address] [place] [address] Apr, Pre-op evaluation Z01.818 [facility] [address] [id number] [address] [place] [address] March, Mood disorder F39 [facility] [address] [id number] [address] [place] [address] Feb, [facility] [address] [id number] [address] [place] [address] Feb, Shoulder pain, right M25.511 [facility] [address] [id number] [address] [place] [address] Feb, Shoulder pain, right M25.511 [facility] [address] [id number] [address] [place] [address] Feb, Shoulder pain, right M25.511 [place] [address] [id number] [address] [place] [address] Feb, Shoulder pain, right M25.511 [facility] [address] [id number] [address] [place] [address] Jan, Shoulder pain, right M25.511 [facility] [address] [id number] [address] [place] [address] Jan, Shoulder pain, right M25.511 [place] [address] [id number] [address] [place] [address] 16 Jan, 2016 [facility] [address] [facility] [id number] [address] [place] [address] Jan, Diabetes type 2, controlled E11.9 [facility] [address] [id number] [address] [place] [address] Jan, Shoulder pain, right M25.511 ; Diabetes mellitus without mention of complication, type II or unspecified type, not stated as uncontrolled 250.00 and Diabetes type 2, controlled E11.9 [facility] [address] [id number] [address] [place] [address] Jan, [place] [address] [place] [id number] [address] [place] [address] Jan, [facility] [address] [address] Dec, [facility] [address] [place] [id number] [address] [place] [address] Oct, Callus of foot L84 [facility] [address] [address] Oct, Anxiety F41.9 ; Callus of fo ot L84 and Dysuria R30.0 [place] [address] [address] Sep, Diabetes mellitus without me ntion of complication, type II or unspecified type, not stated as uncontrolled 250.00 [place] [address] [address] Aug, Diabetes mellitus without me ntion of complication, type II or unspecified type, not stated as uncontrolled 250.00 [facility] [address] [place] [id number] [address] [place] [address] Jul, [facility] [address] [address] Jul, [facility] [address] [place] [id number] [address] [place] [address] Jul, Diabetes mellitus without me ntion of complication, type II or unspecified type, not stated as uncontrolled 250.00 ; Essential hypertension, benign 401.1 and Anxiety state, unspecified 300.00 [facility] [address] [place] [id number] [address] [place] [address] Jul, [facility] [address] [address] Jun, [facility] [address] [place] [id number] [address] [place] [address] Jun, [facility] [address] [id number] [address] [place] [address], [place] [address] 15 May, 2015 [facility] [address] [id number] [address] [place] [address], [place] [address] May, [facility] [address] [id number] [address] [place] [address], [place] [address] Apr, [facility] [address] [id number] [address] [place] [address], [place] [address] Apr, Mood disorder 296.90 [facility] [address] [id number] [address] [place] [address], [place] [address] March, [facility] [address] [id number] [address] [place] [address], [place] [address] Feb, [facility] [address] [id number] [address] [place] [address], [place] [id number] Feb, [facility] [address] [id number] [address] [place] [address], [place] [id number] Jan, [facility] [address] [id number] [address] [place] [address], [place] [id number] Jan, [facility] [address] [id number] [address] [place] [address], [place] [id number] Jan, [facility] [address] [id number] [address] [place] [address], [place] [id number] Jan, [facility] [address] [id number] [address] [place] [address], [place] [id number] Jan, [facility] [address] [id number] [address] [place] [address], [place] [id number] 20 Jan, 2015 [facility] [address] [id number] [address] [place] [address], [place] [id number] Jan, [facility] [address] [id number] [address] [place] [address], [place] [id number] Jan, [facility] [address] [id number] [address] [place] [address], [place] [id number] Dec, [facility] [address] [id number] [address] [place] [address], [place] [id number] Dec, [facility] [address] [id number] [address] [place] [address], [place] [id number] Nov, [facility] [address] [id number] [address] [place] [address], [place] [id number] Nov, [facility] [address] [id number] [address] [place] [address], [place] [id number] Nov, [facility] [address] [id number] [address] [place] [address], [place] [id number] Nov, [facility] [address] [id number] [address] [place] [address], [place] [id number] Oct, [facility] [address] [id number] [address] [place] [address], [place] [id number] Oct, [facility] [address] [id number] [address] [place] [address], [place] [id number] Oct, [facility] [address] [id number] [address] [place] [address], [place] [id number] Oct, [facility] [address] [id number] [address] [place] [address], [place] [id number] Oct, [facility] [address] [id number] [address] [place] [address], [place] [id number] Oct, [facility] [address] [id number] [address] [place] [address], [place] [address] Oct, [facility] [address] [id number] [address] [place] [address], [place] [address] Oct, [facility] [address] [id number] [address] [place] [address], [place] [id number] 15 Oct, 2014 [facility] [address] [id number] [address] [place] [address], [place] [address] Oct, [facility] [address] [id number] [address] [place] [address], [place] [address] Sep, [facility] [address] [id number] [address] [place] [address], [place] [address] Sep, [facility] [address] [id number] [address] [place] [address], [place] [address] Sep, [facility] [address] [id number] [address] [place] [address], [place] [address] Sep, [facility] [address] [id number] [address] [place] [address], [place] [address] Sep, [facility] [address] [id number] [address] [place] [address], [place] [address] Sep, [facility] [address] [id number] [address] [place] [address], [place] [address] Aug, [facility] [address] [id number] [address] [place] [address], [place] [address] Aug, [facility] [address] [id number] [address] [place] [address], [place] [address] Jul, [facility] [address] [id number] [address] [place] [address], [place] [address] Jul, [facility] [address] [id number] [address] [place] [address], [place] [address] Jun, [facility] [address] [id number] [address] [place] [address], [place] [address] Jun, [facility] [address] [id number] [address] [place] [address], [place] [address] May, [facility] [address] [id number] [address] [place] [address], [place] [address] May, [facility] [address] [id number] [address] [place] [address], [place] [address] Apr, [facility] [address] [id number] [address] [place] [address], [place] [address] Apr, [facility] [address] [id number] [address] [place] [address], [place] [address] Apr, [facility] [address] [id number] [address] [place] [address], [place] [address] Apr, [facility] [address] [id number] [address] [place] [address], [place] [address] March, [facility] [address] [id number] [address] [place] [address], [place] [address] March, [facility] [address] [id number] [address] [place] [address], [place] [address] Jan, [facility] [address] [id number] [address] [place] [address], [place] [address] Jan, [facility] [address] [id number] [address] [place] [address], [place] [address] Jan, [facility] [address] [id number] [address] [place] [address], [place] [address] Jan, [facility] [address] [id number] [address] [place] [address], [place] [address] Jan, [facility] [address] [id number] [address] [place] [address], [place] [address] Jan, [facility] [address] [id number] [address] [place] [address], [place] [address] Dec, [facility] [address] [id number] [address] [place] [address], [place] [address] Dec, [facility] [address] [id number] [address] [place] [address], [place] [address] Oct, [facility] [address] [id number] [address] [place] [address], [place] [address] Oct, [facility] [address] [id number] [address] [place] [address], [place] [address] Oct, [facility] [address] [id number] [address] [place] [id number] Oct, [facility] [address] [id number] [address] [place] [address], [place] [address] Jul, [facility] [address] [id number] [address] [place] [address], [place] [address] Jul, [facility] [address] [id number] [address] [place] [address], [place] [address] Jul, [facility] [address] [id number] [address] [place] [address], [place] [address] Jun, [facility] [address] [id number] [address] [place] [address], [place] [address] Jun, [facility] [address] [id number] [address] [place] [address], [place] [address] May, [facility] [address] [id number] [address] [place] [address], [place] [address] May, [facility] [address] [id number] [address] [place] [address], [place] [address] March, [facility] [address] [id number] [address] [place] [address], [place] [address] March, [facility] [address] [id number] [address] [place] [address], [place] [address] Feb, [facility] [address] [id number] [address] [place] [address], [place] [address] Feb, [facility] [address] [id number] [address] [place] [address], [place] [address] Jan, [facility] [address] [id number] [address] [place] [address], [place] [address] Dec, [facility] [address] [id number] [address] [place] [address], [place] [address] Dec, [facility] [address] [id number] [address] [place] [id number] Dec, [facility] [address] [id number] [address] [place] [address], [place] [address] 14 Dec, 2012 [facility] [address] [id number] [address] [place] [address], [place] [address] 13 Dec, 2012 [facility] [address] [id number] [address] [place] [address], [place] [address] Nov, [facility] [address] [id number] [address] [place] [address], [place] [address] Oct, [facility] [address] [id number] [address] [place] [address], [place] [address] Oct, [facility] [address] [id number] [address] [place] [address], [place] [address] Aug, [facility] [address] [id number] [address] [place] [address], [place] [address] Aug, [facility] [address] [id number] [address] [place] [address], [place] [address] Aug, [facility] [address] [id number] [address] [place] [address], [place] [address] Aug, [facility] [address] [id number] [address] [place] [address], [place] [address] Aug, [facility] [address] [id number] [address] [place] [address], [place] [address] Jul, [facility] [address] [id number] [address] [place] [id number] 18 Jul, 2012 [facility] [address] [id number] [address] [place] [address], [place] [address] Jun, [facility] [address] [id number] [address] [place] [address], [place] [address] Jun, [facility] [address] [id number] [address] [place] [id number] May, [facility] [address] [id number] [address] [place] [id number] May, [facility] [address] [id number] [address] [place] [id number] May, [facility] [address] [id number] [address] [place] [id number] Apr, [facility] [address] [id number] [address] [place] [address] Apr, [facility] [address] [id number] [address] [place] [id number] March, [facility] [address] [id number] [address] [place] [address] March, [facility] [address] [id number] [address] [place] [id number] Feb, [facility] [address] [facility] [id number] [address] [place] [id number] Feb, [facility] [address] [id number] [address] [place] [id number] Feb, [facility] [address] [facility] [id number] [address] [place] [id number] Feb, IMMUNIZATIONS No Known Immunizations SOCIAL HISTORY [...]
--- OUTSIDE RECORDS SUMMARY | 2020-06-17 08:47 | XMS REPORT ---
Author Author Barrie BUSTILLO Organization [facility] Address [address] [place] [address] Care Team Providers Care Wound Care Rn Name Role Phone BARRIE BUSTILLO Unavailable PROBLEMS Type Condition ICD9-CM Code [id number] Code Onset Dates Condition S tatus SNOMED Code Problem Essential hypertension I10 Active 42638515 Problem Urinary hesitancy R39.11 Active 59 73921 Problem Obstructive sleep apnea G47.33 Active 41753896 Problem Controlled type 2 diabetes m ellitus without complication, without long- term current use of insulin E11.9 Active 130689656 Problem Primary insomnia F51.01 Active 397 2004 Problem 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 Acti ve 94617323 Problem Diabetes type 2, controlled E11.9 Ac tive 14233930 Problem 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.1 Active 057860871 Problem Acute superficial venous thrombosis of left lower extremit y I82.812 Active [id number] Problem Hesitancy of micturition R39.11 Activ e 6880751 Problem Benign prostatic hyperplasia with lower urinary tract symptoms N40.1 Active [id number] ALLERGIES No Information ENCOUNTERS Encounter Location Date Diagnosis [facility] [address] [facility] [id number] [address] [place] [address] Jul, [facility] [address] [facility] [id number] [address] [place] [address] Jul, [facility] [address] [facility] [id number] [address] [place] [address] Jul, [facility] [address] [facility] [id number] [address] [place] [address] Jul, [facility] [address] [facility] [id number] [address] [place] [address] Jun, [facility] [address] [id number] [address] [place] [address] Jun, [facility] [address] [id number] [address] [place] [address] Jun, Callus of foot L84 [facility] [address] [id number] [address] [place] [address] Jun, [facility] [address] [facility] [id number] [address] [place] [address] Apr, Exercise counseling Z71.82 [facility] [address] [id number] [address] [place] [address] March, Moderate episode of recurren t major depressive disorder F33.1 [place] [address] [facility] [id number] [address] [place] [address] March, Moderate episode of recurren t major depressive disorder F33.1 [place] [address] [facility] [id number] [address] [place] [address] March, Exercise counseling Z71.82 [facility] [address] [facility] [id number] [address] [place] [address] March, [facility] [address] [facility] [id number] [address] [place] [address] March, Exercise counseling Z71.82 [place] [address] [facility] [id number] [address] [place] [address] March, Right otitis media with effu yousuf H65.91 ; 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 and Diabetes type 2, controlled E11.9 [facility] [address] [id number] [address] [place] [address] March, Moderate episode of recurren t major depressive disorder F33.1 [facility] [address] [facility] [id number] [address] [place] [address] March, Exercise counseling Z71.82 [facility] [address] [facility] [id number] [address] [place] [address] March, Exercise counseling Z71.82 [facility] [address] [facility] [id number] [address] [place] [address] March, Callus of foot L84 [place] [address] [facility] [id number] [address] [place] [address] Feb, Moderate episode of recurren t major depressive disorder F33.1 [place] [address] [facility] [id number] [address] [place] [address] Feb, [facility] [address] [facility] [id number] [address] [place] [address] Feb, Moderate episode of recurren t major depressive disorder F33.1 [place] [address] [facility] [id number] [address] [place] [address] Feb, Diabetes type 2, controlled E11.9 and Essential hypertension I10 [place] [address] [place] [id number] [address] [place] [address] Jan, [facility] [address] [place] [id number] [address] [place] [address] Jan, Callus of foot L84 [place] [address] [place] [id number] [address] [place] [address] Jan, Moderate episode of recurren t major depressive disorder F33.1 [facility] [address] [place] [id number] [address] [place] [address] Jan, Moderate episode of recurren t major depressive disorder F33.1 [facility] [address] [facility] [id number] [address] [place] [address] Dec, Moderate episode of recurren t major depressive disorder F33.1 [place] [address] [facility] [id number] [address] [place] [address] Dec, Candidiasis of the esophagus B37.81 [facility] [address] [facility] [id number] [address] [place] [address] Dec, [facility] [address] [facility] [id number] [address] [place] [address] Dec, Fecal occult blood test posi tive R19.5 and Anemia, unspecified type D64.9 [place] [address] [facility] [id number] [address] [place] [address] Nov, Stool color black K92.1 [place] [address] [facility] [id number] [address] [place] [address] Nov, Stool color black K92.1 [place] [address] [facility] [id number] [address] [place] [address] Nov, Stool color black K92.1 [place] [address] [facility] [id number] [address] [place] [address] Nov, [place] [address] [facility] [id number] [address] [place] [address] Nov, Moderate episode of recurren t major depressive disorder F33.1 [place] [address] [place] [id number] [address] [place] [address] Oct, Moderate episode of recurren t major depressive disorder F33.1 [place] [address] [facility] [id number] [address] [place] [address] Oct, Callus of foot L84 and Contr olled type 2 diabetes mellitus without complication, without long-term current use of insulin E11.9 [place] [address] [facility] [id number] [address] [place] [address] Oct, Moderate episode of recurren t major depressive disorder F33.1 [place] [address] [facility] [id number] [address] [place] [address] Aug, Mood disorder F39 [place] [address] [facility] [id number] [address] [place] [address] Aug, Encounter for immunization Z 23 [place] [address] [facility] [id number] [address] [place] [address] Jul, Moderate episode of recurren t major depressive disorder F33.1 [facility] [address] [id number] [address] [place] [address] Jul, Moderate episode of recurren t major depressive disorder F33.1 [facility] [address] [id number] [address] [place] [address] May, [facility] [address] [id number] [address] [place] [address] May, Moderate episode of recurren t major depressive disorder F33.1 [facility] [address] [id number] [address] [place] [address] May, Moderate episode of recurren t major depressive disorder F33.1 [facility] [address] [id number] [address] [place] [address] Apr, Benign prostatic hyperplasia with lower urinary tract symptoms N40.1 and Hesitancy of micturition R39.11 [place] [address] [id number] [address] [place] [address] Apr, Moderate episode of recurren t major depressive disorder F33.1 [facility] [address] [id number] [address] [place] [address] Apr, Unspecified mood [affective] disorder F39 and Primary insomnia F51.01 [facility] [address] [facility] [id number] [address] [place] [address] Apr, Primary insomnia F51.01 [facility] [address] [facility] [id number] [address] [place] [address] March, Foot callus L84 [facility] [address] [id number] [address] [place] [address] Feb, Medicare annual wellness vis it, initial Z00.00 [facility] [address] [id number] [address] [place] [address] Feb, Acute superficial venous thr ombosis of left lower extremity I82.812 [facility] [address] [id number] [address] [place] [address] Feb, [facility] [address] [facility] [id number] [address] [place] [address] Feb, [facility] [address] [facility] [id number] [address] [place] [address] Feb, Acute superficial venous thr ombosis of left lower extremity I82.812 [facility] [address] [facility] [id number] [address] [place] [address] Feb, [facility] [address] [facility] [id number] [address] [place] [address] Feb, Other specified soft tissue disorders M79.89 and Pain in left leg M79.605 [facility] [address] [facility] [id number] [address] [place] [address] Jan, Obstructive sleep apnea G47. 33 [facility] [address] [place] [id number] [address] [place] [address] Dec, Obstructive sleep apnea G47. 33 and Mood disorder F39 [facility] [id number] [place] [address] Dec, [facility] [address] [place] [id number] [address] [place] [address] Dec, [facility] [address] [place] [id number] [address] [place] [address] Nov, Diabetes type 2, controlled E11.9 [facility] [address] [facility] [id number] [address] [place] [address] Nov, Encounter for immunization Z 23 [facility] [address] [address] Nov, Primary insomnia F51.01 [facility] [address] [facility] [id number] [address] [place] [address] 07 Oct, 2017 Medicare annual wellness vis it, subsequent Z00.00 and Mood disorder F39 [facility] [address] [facility] [id number] [address] [place] [address] Sep, Mood disorder F39 [facility] [address] [facility] [id number] [address] [place] [address] Aug, Primary insomnia F51.01 and Urinary hesitancy R39.11 [facility] [address] [facility] [id number] [address] [place] [address] Aug, Primary insomnia F51.01 [facility] [address] [facility] [id number] [address] [place] [address] Jul, Diabetes type 2, controlled E11.9 ; Primary insomnia F51.01 and Mood disorder F39 [place] [address] [facility] [id number] [id number] Jun, Mood disorder F39 [facility] [address] [id number] [id number] Jun, [facility] [address] [facility] [id number] [address] [place] [address] May, Nightmares F51.5 [facility] [address] [facility] [id number] [address] [place] [address] May, Cognitive complaints R41.9 ; Unspecified mood [affective] disorder F39 and Primary insomnia F51.01 [facility] [address] [facility] [id number] [address] [place] [address] Apr, Mood disorder F39 and Primar y insomnia F51.01 [facility] [address] [facility] [id number] [address] [place] [address] Apr, Cognitive complaints R41.9 a nd Unspecified mood [affective] disorder F39 [facility] [address] [facility] [id number] [address] [place] [address] Apr, Cognitive complaints R41.9 a nd Unspecified mood [affective] disorder F39 [facility] [address] [facility] [id number] [address] [place] [address] March, [facility] [address] [facility] [id number] [address] [place] [address] March, Diabetes type 2, controlled E11.9 and Essential hypertension I10 [place] [address] [facility] [id number] [address] [place] [address] March, Primary insomnia F51.01 ; Di abetes type 2, controlled E11.9 and Pain in right shoulder M25.511 [facility] [address] [facility] [id number] [address] [place] [address] March, Cognitive complaints R41.9 a nd Unspecified mood [affective] disorder F39 [place] [address] [facility] [id number] [address] [place] [address] Feb, Other specified mental disor ders due to known physiological condition F06.8 [place] [address] [place] [id number] [address] [place] [address] Jan, [place] [address] [place] [id number] [address] [place] [address] Jan, [facility] [address] [place] [id number] [address] [place] [address] Dec, Diabetes type 2, controlled E11.9 ; Hypertension, benign I10 and Mood disorder F39 [facility] [address] [place] [id number] [address] [place] [address] 08 Dec, 2016 Medicare annual wellness vis it, initial Z00.00 [place] [address] [facility] [id number] [address] [place] [address] 05 Nov, 2016 Medicare welcome exam Z00.00 ; Encounter for immunization Z23 ; Medicare annual wellness visit, initial Z00.00 and Medicare annual wellness visit, subsequent Z00.00 [place] [address] [facility] [id number] [address] [place] [address] Oct, [facility] [address] [place] [id number] [address] [place] [address] Sep, [place] [id number] [place] [address] Aug, Encounter for immunization Z 23 and Callus L84 [facility] [address] [place] [id number] [address] [place] [address] Aug, [facility] [address] [facility] [id number] [address] [place] [address] Jul, Diabetes type 2, controlled E11.9 [facility] [address] [place] [id number] [address] [place] [address] Jul, Diabetes type 2, controlled E11.9 [facility] [address] [place] [id number] [address] [place] [address] Jun, [facility] [address] [place] [id number] [place] [address] Jun, Hypertension, benign I10 ; M ood disorder F39 and Diabetes type 2, controlled E11.9 [facility] [address] [place] [id number] [address] [place] [address] Jun, Mood disorder F39 [facility] [address] [place] [id number] [address] [place] [address] May, [facility] [address] [place] [id number] [address] [place] [address] May, Mood disorder F39 [place] [address] [place] [id number] [address] [place] [address] May, Mood disorder F39 [facility] [address] [place] [id number] [address] [place] [address] 16 Apr, 2016 Controlled type 2 diabetes m ellitus without complication, without long-term current use of insulin E11.9 ; Essential hypertension I10 and Pain in right shoulder M25.511 [facility] [address] [facility] [id number] [address] [place] [address] 08 Apr, 2016 Mood disorder F39 [facility] [address] [place] [id number] [address] [place] [address] Apr, Pre-op evaluation Z01.818 [facility] [address] [id number] [address] [place] [address] March, Mood disorder F39 [facility] [address] [id number] [address] [place] [address] Feb, [facility] [address] [id number] [address] [place] [address] Feb, Shoulder pain, right M25.511 [facility] [address] [id number] [address] [place] [address] Feb, Shoulder pain, right M25.511 [facility] [address] [id number] [address] [place] [address] Feb, Shoulder pain, right M25.511 [place] [address] [id number] [address] [place] [address] Feb, Shoulder pain, right M25.511 [facility] [address] [id number] [address] [place] [address] Jan, Shoulder pain, right M25.511 [facility] [address] [id number] [address] [place] [address] Jan, Shoulder pain, right M25.511 [place] [address] [id number] [address] [place] [address] 16 Jan, 2016 [facility] [address] [facility] [id number] [address] [place] [address] Jan, Diabetes type 2, controlled E11.9 [facility] [address] [id number] [address] [place] [address] Jan, Shoulder pain, right M25.511 ; Diabetes mellitus without mention of complication, type II or unspecified type, not stated as uncontrolled 250.00 and Diabetes type 2, controlled E11.9 [facility] [address] [id number] [address] [place] [address] Jan, [place] [address] [place] [id number] [address] [place] [address] Jan, [facility] [address] [address] Dec, [facility] [address] [place] [id number] [address] [place] [address] Oct, Callus of foot L84 [facility] [address] [address] Oct, Anxiety F41.9 ; Callus of fo ot L84 and Dysuria R30.0 [place] [address] [address] Sep, Diabetes mellitus without me ntion of complication, type II or unspecified type, not stated as uncontrolled 250.00 [place] [address] [address] Aug, Diabetes mellitus without me ntion of complication, type II or unspecified type, not stated as uncontrolled 250.00 [facility] [address] [place] [id number] [address] [place] [address] Jul, [facility] [address] [address] Jul, [facility] [address] [place] [id number] [address] [place] [address] Jul, Diabetes mellitus without me ntion of complication, type II or unspecified type, not stated as uncontrolled 250.00 ; Essential hypertension, benign 401.1 and Anxiety state, unspecified 300.00 [facility] [address] [place] [id number] [address] [place] [address] Jul, [facility] [address] [address] Jun, [facility] [address] [place] [id number] [address] [place] [address] Jun, [facility] [address] [id number] [address] [place] [address], [place] [address] 15 May, 2015 [facility] [address] [id number] [address] [place] [address], [place] [address] May, [facility] [address] [id number] [address] [place] [address], [place] [address] Apr, [facility] [address] [id number] [address] [place] [address], [place] [address] Apr, Mood disorder 296.90 [facility] [address] [id number] [address] [place] [address], [place] [address] March, [facility] [address] [id number] [address] [place] [address], [place] [address] Feb, [facility] [address] [id number] [address] [place] [address], [place] [address] Feb, [facility] [address] [id number] [address] [place] [address], [place] [address] Jan, [facility] [address] [id number] [address] [place] [address], [place] [address] Jan, [facility] [address] [id number] [address] [place] [address], [place] [address] Jan, [facility] [address] [id number] [address] [place] [address], [place] [address] Jan, [facility] [address] [id number] [address] [place] [address], [place] [address] Jan, [facility] [address] [id number] [address] [place] [address], [place] [id number] 20 Jan, 2015 [facility] [address] [id number] [address] [place] [address], [place] [address] Jan, [facility] [address] [id number] [address] [place] [address], [place] [address] Jan, [facility] [address] [id number] [address] [place] [address], [place] [address] Dec, [facility] [address] [id number] [address] [place] [address], [place] [address] Dec, [facility] [address] [id number] [address] [place] [address], [place] [address] Nov, [facility] [address] [id number] [address] [place] [address], [place] [address] Nov, [facility] [address] [id number] [address] [place] [address], [place] [address] Nov, [facility] [address] [id number] [address] [place] [address], [place] [id number] Nov, [facility] [address] [id number] [address] [place] [address], [place] [address] Oct, [facility] [address] [id number] [address] [place] [address], [place] [address] Oct, [facility] [address] [id number] [address] [place] [address], [place] [id number] Oct, [facility] [address] [id number] [address] [place] [address], [place] [id number] Oct, [facility] [address] [id number] [address] [place] [address], [place] [id number] Oct, [facility] [address] [id number] [address] [place] [address], [place] [address] Oct, [facility] [address] [id number] [address] [place] [address], [place] [address] Oct, [facility] [address] [id number] [address] [place] [address], [place] [id number] Oct, [facility] [address] [id number] [address] [place] [address], [place] [id number] 15 Oct, 2014 [facility] [address] [id number] [address] [place] [address], [place] [id number] Oct, [facility] [address] [id number] [address] [place] [address], [place] [id number] Sep, [facility] [address] [id number] [address] [place] [address], [place] [id number] Sep, [facility] [address] [id number] [address] [place] [address], [place] [address] Sep, [facility] [address] [id number] [address] [place] [address], [place] [id number] Sep, [facility] [address] [id number] [address] [place] [address], [place] [id number] Sep, [facility] [address] [id number] [address] [place] [address], [place] [address] Sep, [facility] [address] [id number] [address] [place] [address], [place] [id number] Aug, [facility] [address] [id number] [address] [place] [address], [place] [address] Aug, [facility] [address] [id number] [address] [place] [address], [place] [address] Jul, [facility] [address] [id number] [address] [place] [address], [place] [address] Jul, [facility] [address] [id number] [address] [place] [address], [place] [address] Jun, [facility] [address] [id number] [address] [place] [address], [place] [address] Jun, [facility] [address] [id number] [address] [place] [address], [place] [address] May, [facility] [address] [id number] [address] [place] [address], [place] [address] May, [facility] [address] [id number] [address] [place] [address], [place] [address] Apr, [facility] [address] [id number] [address] [place] [address], [place] [address] Apr, [facility] [address] [id number] [address] [place] [address], [place] [address] Apr, [facility] [address] [id number] [address] [place] [address], [place] [address] Apr, [facility] [address] [id number] [address] [place] [address], [place] [address] March, [facility] [address] [id number] [address] [place] [address], [place] [address] March, [facility] [address] [id number] [address] [place] [address], [place] [address] Jan, [facility] [address] [id number] [address] [place] [address], [place] [address] Jan, [facility] [address] [id number] [address] [place] [address], [place] [address] Jan, [facility] [address] [id number] [address] [place] [address], [place] [address] Jan, [facility] [address] [id number] [address] [place] [address], [place] [address] Jan, [facility] [address] [id number] [address] [place] [address], [place] [address] Jan, [facility] [address] [id number] [address] [place] [address], [place] [address] Dec, [facility] [address] [id number] [address] [place] [address], [place] [address] Dec, [facility] [address] [id number] [address] [place] [address], [place] [address] Oct, [facility] [address] [id number] [address] [place] [address], [place] [address] Oct, [facility] [address] [id number] [address] [place] [address], [place] [address] Oct, [facility] [address] [id number] [address] [place] [id number] Oct, [facility] [address] [id number] [address] [place] [address], [place] [address] Jul, [facility] [address] [id number] [address] [place] [address], [place] [address] Jul, [facility] [address] [id number] [address] [place] [address], [place] [address] Jul, [facility] [address] [id number] [address] [place] [address], [place] [address] Jun, [facility] [address] [id number] [address] [place] [address], [place] [address] Jun, [facility] [address] [id number] [address] [place] [address], [place] [address] May, [facility] [address] [id number] [address] [place] [address], [place] [address] May, [facility] [address] [id number] [address] [place] [address], [place] [address] March, [facility] [address] [id number] [address] [place] [address], [place] [address] March, [facility] [address] [id number] [address] [place] [address], [place] [address] Feb, [facility] [address] [id number] [address] [place] [address], [place] [address] Feb, [facility] [address] [id number] [address] [place] [address], [place] [address] Jan, [facility] [address] [id number] [address] [place] [address], [place] [address] Dec, [facility] [address] [id number] [address] [place] [address], [place] [address] Dec, [facility] [address] [id number] [address] [place] [address] Dec, [facility] [address] [id number] [address] [place] [address], [place] [address] 14 Dec, 2012 [facility] [address] [id number] [address] [place] [address], [place] [address] 13 Dec, 2012 [facility] [address] [id number] [address] [place] [address], [place] [address] Nov, [facility] [address] [id number] [address] [place] [address], [place] [address] Oct, [facility] [address] [id number] [address] [place] [address], [place] [address] Oct, [facility] [address] [id number] [address] [place] [address], [place] [address] Aug, [facility] [address] [id number] [address] [place] [address], [place] [address] Aug, [facility] [address] [id number] [address] [place] [address], [place] [address] Aug, [facility] [address] [id number] [address] [place] [address], [place] [address] Aug, [facility] [address] [id number] [address] [place] [address], [place] [address] Aug, [facility] [address] [id number] [address] [place] [address], [place] [address] Jul, [facility] [address] [id number] [address] [place] [id number] 18 Jul, 2012 [facility] [address] [id number] [address] [place] [address], [place] [address] Jun, [facility] [address] [id number] [address] [place] [address], [place] [address] Jun, [facility] [address] [id number] [address] [place] [id number] May, [facility] [address] [id number] [address] [place] [address] May, [facility] [address] [id number] [address] [place] [id number] May, [facility] [address] [id number] [address] [place] [id number] Apr, [facility] [address] [id number] [address] [place] [id number] Apr, [facility] [address] [id number] [address] [place] [id number] March, [facility] [address] [id number] [address] [place] [id number] March, [facility] [address] [id number] [address] [place] [id number] Feb, [facility] [address] [facility] [id number] [address] [place] [address] Feb, [facility] [address] [id number] [address] [place] [address] Feb, [facility] [address] [facility] [id number] [address] [place] [id number] Feb, IMMUNIZATIONS No Known Immunizations SOCIAL HISTORY [...]
--- OUTSIDE RECORDS SUMMARY | 2020-06-17 08:47 | XMS REPORT ---
Author Author Brarie BUSTILLO Organization [facility] Address [address] [place] [address] Care Team Providers Care Photographic Plate Maker Name Role Phone BARRIE BUSTILLO Unavailable PROBLEMS Type Condition ICD9-CM Code HAM42-YQ Code Onset Dates Condition S tatus SNOMED Code Problem Primary insomnia F51.01 Active 397 2004 Problem Diabetes type 2, controlled E11.9 Ac tive 09820483 Problem Obstructive sleep apnea G47.33 Active 57783849 Problem 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.1 Active 206258967 Problem Acute superficial venous thrombosis of left lower extremit y I82.812 Active [id number] Problem Uncontrolled type 2 diabetes mellitus with hyperglycemia E11.65 Active 193041732 Problem Urinary hesitancy R39.11 Active 59 43056 Problem Arthritis M19.90 Active 8303390 Problem Essential hypertension I10 Active 30099405 Problem Hesitancy of micturition R39.11 Activ e 5070845 Problem Benign prostatic hyperplasia with lower urinary tract symptoms N40.1 Active 445989211 Problem Controlled type 2 diabetes m ellitus without complication, without long- term current use of insulin E11.9 Active 265848137 Problem 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 Acti ve [id number] ALLERGIES No Information ENCOUNTERS Encounter Location Date Diagnosis [facility] [address] [facility] [id number] [address] [place] [address] Aug, [facility] [address] [facility] [id number] [address] [place] [phone] Aug, [facility] [address] [facility] [id number] [address] [place] [phone] Jul, [facility] [address] [facility] [id number] [address] [place] [address] Jul, Foot callus L84 ; Uncontroll ed type 2 diabetes mellitus with hyperglycemia E11.65 ; Arthritis M19.90 ; Encounter for immunization Z23 ; Rib pain on right side R07.81 and Lumbar pain M54.5 [facility] [address] [id number] [address] [place] [address] Jul, [facility] [address] [id number] [address] [place] [address] Jun, [facility] [address] [id number] [address] [place] [phone] Jun, [facility] [address] [id number] [address] [place] [phone] Jun, Callus of foot L84 [facility] [address] [facility] [id number] [place] [address] Jun, [facility] [address] [facility] [id number] [address] [place] [phone] Apr, Exercise counseling Z71.82 [facility] [address] [place] [id number] [address] [place] [address] March, Moderate episode of recurren t major depressive disorder F33.1 [facility] [address] [place] [id number] [address] [place] [address] March, Moderate episode of recurren t major depressive disorder F33.1 [facility] [address] [facility] [id number] [address] [place] [address] March, Exercise counseling Z71.82 [facility] [address] [facility] [id number] [address] [place] [phone] March, [facility] [address] [facility] [id number] [address] [place] [address] March, Exercise counseling Z71.82 [facility] [address] [facility] [id number] [address] [place] [phone] March, Right otitis media with effu yousuf H65.91 ; 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 and Diabetes type 2, controlled E11.9 [facility] [address] [id number] [address] [place] [phone] March, Moderate episode of recurren t major depressive disorder F33.1 [facility] [address] [id number] [address] [place] [address] March, Exercise counseling Z71.82 [facility] [address] [id number] [address] [place] [address] March, Exercise counseling Z71.82 [facility] [address] [id number] [address] [place] [address] March, Callus of foot L84 [facility] [address] [id number] [address] [place] [phone] Feb, Moderate episode of recurren t major depressive disorder F33.1 [facility] [address] [id number] [address] [place] [phone] Feb, [facility] [address] [id number] [address] [place] [address] Feb, Moderate episode of recurren t major depressive disorder F33.1 [facility] [address] [id number] [address] [place] [phone] Feb, Diabetes type 2, controlled E11.9 and Essential hypertension I10 [facility] [address] [id number] [address] [place] [address] Jan, [facility] [address] [id number] [address] [place] [address] Jan, Callus of foot L84 [facility] [address] [id number] [address] [place] [phone] Jan, Moderate episode of recurren t major depressive disorder F33.1 [facility] [address] [facility] [id number] [address] [place] [phone] Jan, Moderate episode of recurren t major depressive disorder F33.1 [facility] [address] [id number] [address] [place] [address] Dec, Moderate episode of recurren t major depressive disorder F33.1 [facility] [address] [facility] [id number] [address] [place] [phone] 11 Dec, 2018 Candidiasis of the esophagus B37.81 [facility] [address] [id number] [address] [place] [phone] 08 Dec, 2018 [facility] [address] [facility] [id number] [address] [place] [phone] 04 Dec, 2018 Fecal occult blood test posi tive R19.5 and Anemia, unspecified type D64.9 [facility] [address] [facility] [id number] [address] [place] [address] Nov, Stool color black K92.1 [place] [address] [facility] [id number] [address] [place] [address] Nov, Stool color black K92.1 [place] [address] [facility] [id number] [address] [place] [address] Nov, Stool color black K92.1 [facility] [address] [facility] [id number] [address] [place] [address] Nov, [facility] [address] [facility] [id number] [address] [place] [id number] Nov, Moderate episode of recurren t major depressive disorder F33.1 [facility] [address] [facility] [id number] [address] [place] [address] Oct, Moderate episode of recurren t major depressive disorder F33.1 [facility] [address] [facility] [id number] [address] [place] [address] 18 Oct, 2018 Callus of foot L84 and Contr olled type 2 diabetes mellitus without complication, without long-term current use of insulin E11.9 [facility] [address] [facility] [id number] [address] [place] [phone] 10 Oct, 2018 Moderate episode of recurren t major depressive disorder F33.1 [facility] [address] [facility] [id number] [address] [place] [phone] 17 Aug, 2018 Mood disorder F39 [facility] [address] [facility] [id number] [address] [place] [address] 05 Aug, 2018 Encounter for immunization Z 23 [facility] [address] [facility] [id number] [address] [place] [phone] 26 Jul, 2018 Moderate episode of recurren t major depressive disorder F33.1 [facility] [address] [facility] [id number] [address] [place] [phone] 24 Jul, 2018 Moderate episode of recurren t major depressive disorder F33.1 [place] [address] [facility] [id number] [address] [place] [phone] May, [place] [address] [facility] [id number] [address] [place] [address] May, Moderate episode of recurren t major depressive disorder F33.1 [place] [address] [facility] [id number] [address] [place] [address] May, Moderate episode of recurren t major depressive disorder F33.1 [place] [address] [facility] [id number] [address] [place] [address] Apr, Benign prostatic hyperplasia with lower urinary tract symptoms N40.1 and Hesitancy of micturition R39.11 [place] [address] [facility] [id number] [address] [place] [address] Apr, Moderate episode of recurren t major depressive disorder F33.1 [facility] [address] [facility] [id number] [address] [place] [address] Apr, Unspecified mood [affective] disorder F39 and Primary insomnia F51.01 [place] [address] [facility] [id number] [address] [place] [address] Apr, Primary insomnia F51.01 [facility] [address] [facility] [id number] [address] [place] [address] March, Foot callus L84 [place] [address] [id number] [address] [place] [address] Feb, Medicare annual wellness vis it, initial Z00.00 [facility] [address] [facility] [id number] [address] [place] [address] Feb, Acute superficial venous thr ombosis of left lower extremity I82.812 [facility] [address] [facility] [id number] [address] [place] [phone] Feb, [facility] [address] [facility] [id number] [address] [place] [phone] Feb, [facility] [address] [facility] [id number] [address] [place] [address] Feb, Acute superficial venous thr ombosis of left lower extremity I82.812 [facility] [address] [facility] [id number] [address] [place] [phone] Feb, [facility] [address] [facility] [id number] [address] [place] [address] Feb, Other specified soft tissue disorders M79.89 and Pain in left leg M79.605 [facility] [address] [facility] [id number] [address] [place] [address] Jan, Obstructive sleep apnea G47. 33 [facility] [address] [facility] [id number] [address] [place] [phone] Dec, Obstructive sleep apnea G47. 33 and Mood disorder F39 [facility] [address] [facility] [id number] [address] [place] [phone] Dec, [facility] [address] [facility] [id number] [address] [place] [phone] Dec, [facility] [address] [facility] [id number] [address] [place] [address] Nov, Diabetes type 2, controlled E11.9 [facility] [address] [facility] [id number] [address] [place] [phone] 09 Nov, 2017 Encounter for immunization Z 23 [facility] [address] [facility] [id number] [address] [place] [address] Nov, Primary insomnia F51.01 [facility] [address] [facility] [id number] [address] [place] [phone] 07 Oct, 2017 Medicare annual wellness vis it, subsequent Z00.00 and Mood disorder F39 [facility] [address] [facility] [id number] [address] [place] [address] Sep, Mood disorder F39 [place] [address] [facility] [id number] [address] [place] [address] Aug, Primary insomnia F51.01 and Urinary hesitancy R39.11 [place] [address] [facility] [id number] [address] [place] [address] Aug, Primary insomnia F51.01 [facility] [address] [facility] [id number] [address] [place] [id number] 07 Jul, 2017 Diabetes type 2, controlled E11.9 ; Primary insomnia F51.01 and Mood disorder F[address] [place] [address] [id number] [id number] Jun, Mood disorder F39 [facility] [address] [id number] LEODANMonika S [id number] Jun, [facility] [address] [facility] [id number] [address] [place] [phone] May, Nightmares F51.5 [facility] [address] [facility] [id number] [address] [place] [phone] May, Cognitive complaints R41.9 ; Unspecified mood [affective] disorder F39 and Primary insomnia F51.01 [facility] [address] [facility] [id number] [address] [place] [address] Apr, Mood disorder F39 and Primar y insomnia F51.01 [facility] [address] [facility] [id number] [address] [place] [address] Apr, Cognitive complaints R41.9 a nd Unspecified mood [affective] disorder F39 [facility] [address] [id number] [address] [place] [phone] Apr, Cognitive complaints R41.9 a nd Unspecified mood [affective] disorder F39 [facility] [address] [facility] [id number] [address] [place] [address] March, [facility] [address] [facility] [id number] [address] [place] [phone] March, Diabetes type 2, controlled E11.9 and Essential hypertension I10 [place] [address] [facility] [id number] [address] [place] [address] March, Primary insomnia F51.01 ; Di abetes type 2, controlled E11.9 and Pain in right shoulder M25.511 [place] [address] [facility] [id number] [address] [place] [phone] March, Cognitive complaints R41.9 a nd Unspecified mood [affective] disorder F39 [place] [address] [facility] [id number] [address] [place] [address] Feb, Other specified mental disor ders due to known physiological condition F06.8 [facility] [address] [facility] [id number] [address] [place] [phone] Jan, [facility] [address] [facility] [id number] [address] [place] [phone] Jan, [facility] [address] [facility] [id number] [address] [place] [address] Dec, Diabetes type 2, controlled E11.9 ; Hypertension, benign I10 and Mood disorder F39 [facility] [address] [facility] [id number] [address] [place] [address] 08 Dec, 2016 Medicare annual wellness vis it, initial Z00.00 [place] [address] [facility] [id number] [address] [place] [address] 05 Nov, 2016 Medicare welcome exam Z00.00 ; Encounter for immunization Z23 ; Medicare annual wellness visit, initial Z00.00 and Medicare annual wellness visit, subsequent Z00.00 [facility] [address] [id number] [address] [place] [id number] Oct, [facility] [address] [id number] [address] [place] [phone] Sep, [facility] [address] [id number] [address] [place] [address] Aug, Encounter for immunization Z 23 and Callus L84 [facility] [address] [id number] [address] [place] [phone] Aug, [facility] [address] [id number] [address] [place] [address] Jul, Diabetes type 2, controlled E11.9 [facility] [address] [id number] [address] [place] [phone] Jul, Diabetes type 2, controlled E11.9 [facility] [address] [id number] [address] [place] [address] Jun, [facility] [address] [id number] [address] [place] [address] Jun, Hypertension, benign I10 ; M ood disorder F39 and Diabetes type 2, controlled E11.9 [facility] [address] [id number] [address] [place] [address] Jun, Mood disorder F39 [facility] [address] [id number] [address] [place] [id number] May, [facility] [address] [id number] [address] [place] [address] May, Mood disorder F39 [facility] [address] [id number] [address] [place] [address] May, Mood disorder F39 [facility] [address] [id number] [address] [place] [address] Apr, Controlled type 2 diabetes m ellitus without complication, without long-term current use of insulin E11.9 ; Essential hypertension I10 and Pain in right shoulder M25.511 [facility] [address] [id number] [address] [place] [address] 08 Apr, 2016 Mood disorder F39 [facility] [address] [id number] [address] [place] [phone] 07 Apr, 2016 Pre-op evaluation Z01.818 [facility] [address] [id number] [address] [place] [phone] March, Mood disorder F39 [facility] [address] [id number] [address] [place] [address] Feb, [facility] [address] [id number] [address] [place] [address] Feb, Shoulder pain, right M25.511 [facility] [address] [id number] [address] [place] [address] Feb, Shoulder pain, right M25.511 [facility] [address] [id number] [address] [place] [address] Feb, Shoulder pain, right M25.511 [facility] [address] [id number] [address] [place] [address] Feb, Shoulder pain, right M25.511 [facility] [address] [id number] [address] [place] [id number] 30 Jan, 2016 Shoulder pain, right M25.511 [facility] [address] [id number] [address] [place] [address] Jan, Shoulder pain, right M25.511 [facility] [address] [id number] [address] [place] [id number] Jan, [facility] [address] [id number] [address] [place] [address] Jan, Diabetes type 2, controlled E11.9 [place] [address] [address] Jan, Shoulder pain, right M25.511 ; Diabetes mellitus without mention of complication, type II or unspecified type, not stated as uncontrolled 250.00 and Diabetes type 2, controlled E11.9 [place] [address] [id number] Jan, [place] [address] [id number] Jan, [place] [address] [address] Dec, [place] [address] [id number] Oct, Callus of foot L84 [place] [address] [address] Oct, Anxiety F41.9 ; Callus of fo ot L84 and Dysuria R30.0 [place] [address] [place] [id number] [address] [place] [address] Sep, Diabetes mellitus without me ntion of complication, type II or unspecified type, not stated as uncontrolled 250.00 [place] [address] [address] Aug, Diabetes mellitus without me ntion of complication, type II or unspecified type, not stated as uncontrolled 250.00 [place] [address] [place] [id number] [address] [place] [address] Jul, [place] [address] [address] Jul, [place] [address] [address] Jul, Diabetes mellitus without me ntion of complication, type II or unspecified type, not stated as uncontrolled 250.00 ; Essential hypertension, benign 401.1 and Anxiety state, unspecified 300.00 [facility] [address] [id number] [address] [place] [address], [place] [address] Jul, [facility] [address] [id number] [address] [place] [address], [place] [address] Jun, [facility] [address] [id number] [address] [place] [address], [place] [phone] Jun, [facility] [address] [id number] [address] [place] [address], [place] [id number] May, [facility] [address] [id number] [address] [place] [address], [place] [phone] May, [facility] [address] [id number] [address] [place] [address], [place] [address] Apr, [facility] [address] [id number] [address] [place] [address], [place] [address] Apr, Mood disorder 296.90 [facility] [address] [id number] [address] [place] [address], [place] [id number] March, [facility] [address] [id number] [address] [place] [address], [place] [id number] Feb, [facility] [address] [id number] [address] [place] [id number] Feb, [facility] [address] [id number] [address] [place] [id number] Jan, [facility] [address] [id number] [address] [place] [id number] Jan, [facility] [address] [id number] [address] [place] [address], [place] [id number] Jan, [facility] [address] [id number] [address] [place] [address], [place] [id number] Jan, [facility] [address] [id number] [address] [place] [id number] Jan, [facility] [address] [id number] [address] [place] [id number] Jan, [facility] [address] [id number] [address] [place] [address], [place] [id number] Jan, [facility] [address] [id number] [address] [place] [address], [place] [id number] Jan, [facility] [address] [id number] [address] [place] [address], [place] [id number] Dec, [facility] [address] [id number] [address] [place] [address], [place] [id number] Dec, [facility] [address] [id number] [address] [place] [address], [place] [id number] Nov, [facility] [address] [id number] [address] [place], [place] [address], [place] [id number] Nov, [facility] [address] [id number] [address] [place] [address], [place] [address] Nov, [facility] [address] [id number] [address] [place] [address], [place] [address] Nov, [facility] [address] [id number] [address] [place] [address], [place] [address] Oct, [facility] [address] [id number] [address] [place] [address], [place] [address] Oct, [facility] [address] [id number] [address] [place] [address], [place] [address] Oct, [facility] [address] [id number] [address] [place] [address], [place] [address] Oct, [facility] [address] [id number] [address] [place] [address], [place] [address] Oct, [facility] [address] [id number] [address] [place] [address], [place] [address] Oct, [facility] [address] [id number] [address] [place] [address], [place] [address] Oct, [facility] [address] [id number] [address] [place] [address], [place] [id number] 17 Oct, 2014 [facility] [address] [id number] [address] [place] [address], [place] [id number] 15 Oct, 2014 [facility] [address] [id number] [address] [place] [address], [place] [address] 15 Oct, 2014 [facility] [address] [id number] [address] [place] [address], [place] [address] Sep, [facility] [address] [id number] [address] [place] [address], [place] [id number] Sep, [facility] [address] [id number] [address] [place] [address], [place] [address] Sep, [facility] [address] [id number] [address] [place] [address], [place] [address] Sep, [facility] [address] [id number] [address] [place] [address], [place] [id number] Sep, [facility] [address] [id number] [address] [place] [address], [place] [address] Sep, [facility] [address] [id number] [address] [place] [address], [place] [address] Aug, [facility] [address] [id number] [address] [place] [address], [place] [address] Aug, [facility] [address] [id number] [address] [place] [address], [place] [address] Jul, [facility] [address] [id number] [address] [place] [address], [place] [address] Jul, [facility] [address] [id number] [address] [place] [address], [place] [address] Jun, [facility] [address] [id number] [address] [place] [address], [place] [address] Jun, [facility] [address] [id number] [address] [place] [address], [place] [address] May, [facility] [address] [id number] [facility] [place] [address] May, [facility] [address] [id number] [address] [place] [address], [place] [address] Apr, [facility] [address] [id number] [address] [place] [address], [place] [id number] Apr, [facility] [address] [id number] [address] [place] [address], [place] [id number] Apr, [facility] [address] [id number] [address] [place] [address], [place] [id number] Apr, [facility] [address] [id number] [address] [place] [address], [place] [id number] March, [facility] [address] [id number] [address] [place] [address], [place] [address] March, [facility] [address] [id number] [address] [place] [address], [place] [address] Jan, [facility] [address] [id number] [address] [place] [address], [place] [id number] Jan, [facility] [address] [id number] [address] [place] [address], [place] [address] Jan, [facility] [address] [id number] [address] [place] [address], [place] [address] Jan, [facility] [address] [id number] [address] [place] [address], [place] [address] Jan, [facility] [address] [id number] [address] [place] [address], [place] [address] Jan, [facility] [address] [id number] [address] [place] [address], [place] [address] Dec, [facility] [address] [id number] [address] [place] [address], [place] [id number] Dec, [facility] [address] [id number] [address] [place] [address], [place] [address] Oct, [facility] [address] [id number] [address] [place] [address], [place] [address] Oct, [facility] [address] [id number] [address] [place] [address], [place] [address] Oct, [facility] [address] [id number] [address] [place] [address], [place] [address] Oct, [facility] [address] [id number] [address] [place] [address], [place] [address] Jul, [facility] [address] [id number] [address] [place] [address], [place] [id number] Jul, [facility] [address] [id number] [address] [place] [address], [place] [address] Jul, [facility] [address] [id number] [address] [place] [address], [place] [address] Jun, [facility] [address] [id number] [address] [place] [address], [place] [address] Jun, [facility] [address] [id number] [address] [place] [address], [place] [address] May, [facility] [address] [id number] [address] [place] [address], [place] [address] May, [facility] [address] [id number] [address] [place] [address], [place] [address] March, [facility] [address] [id number] [address] [place] [address], [place] [id number] March, [facility] [address] [id number] [address] [place] [address], [place] [address] Feb, [facility] [address] [id number] [address] [place] [address], [place] [address] Feb, [facility] [address] [id number] [address] [place] [address], [place] [address] Jan, [facility] [address] [id number] [address] [place] [address], [place] [address] Dec, [facility] [address] [id number] [address] [place] [address], [place] [address] Dec, [facility] [address] [id number] [address] [place] [address], [place] [id number] 15 Dec, 2012 [facility] [address] [id number] [address] [place] [address], [place] [id number] 14 Dec, 2012 [facility] [address] [id number] [address] [place] [address], [place] [address] Dec, [facility] [address] [id number] [address] [place] [address], [place] [address] Nov, [facility] [address] [id number] [address] [place] [address], [place] [address] Oct, [facility] [address] [id number] [address] [place] [id number] Oct, [facility] [address] [id number] [address] [place] [address], [place] [address] Aug, [facility] [address] [id number] [address] [place] [address], [place] [address] Aug, [facility] [address] [id number] [address] [place] [id number] Aug, [facility] [address] [id number] [address] [place] [id number] 09 Aug, 2012 [facility] [address] [id number] [address] [place] [address], [place] [address] Aug, [facility] [address] [id number] [address] [place] [id number] Jul, [facility] [address] [id number] [address] [place] [address], [place] [id number] 18 Jul, 2012 [facility] [address] [id number] [address] [place] [id number] Jun, [facility] [address] [id number] [address] [place] [id number] Jun, [facility] [address] [id number] [address] [place] [id number] May, [facility] [address] [id number] [address] [place] [id number] May, [facility] [address] [id number] [address] [place] [id number] May, [facility] [address] [id number] [address] [place] [id number] Apr, [facility] [address] [id number] [address] [place] [id number] Apr, [facility] [address] [id number] [address] [place] [id number] March, [facility] [address] [id number] [address] [place] [id number] March, [facility] [address] [id number] [address] [place] [id number] Feb, [facility] [address] [id number] [address] [place] [phone] Feb, [facility] [address] [id number] [address] [place] [id number] Feb, [facility] [address] [id number] [address] [place] [id number] Feb, IMMUNIZATIONS No Known Immunizations SOCIAL HISTORY [...]
--- OUTSIDE RECORDS SUMMARY | 2020-06-17 08:47 | XMS REPORT ---
Author Author Barrie BUSTILLO Organization [facility] Address [address] [place] [address] Care Team Providers Care Cutting Machine Tender Decorative Name Role Phone BARRIE BUSTILLO Unavailable PROBLEMS Type Condition ICD9-CM Code TQU22-PJ Code Onset Dates Condition S tatus SNOMED Code Problem Essential hypertension I10 Active 78312751 Problem Urinary hesitancy R39.11 Active 59 95099 Problem Obstructive sleep apnea G47.33 Active 33009907 Problem Controlled type 2 diabetes m ellitus without complication, without long- term current use of insulin E11.9 Active 426078331 Problem Primary insomnia F51.01 Active 397 2004 Problem 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 Acti ve 30041455 Problem Diabetes type 2, controlled E11.9 Ac tive 14377554 Problem 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.1 Active 607236120 Problem Acute superficial venous thrombosis of left lower extremit y I82.812 Active [id number] Problem Hesitancy of micturition R39.11 Activ e 8503493 Problem Benign prostatic hyperplasia with lower urinary tract symptoms N40.1 Active 113866437 ALLERGIES No Information ENCOUNTERS Encounter Location Date Diagnosis [facility] [address] [facility] [id number] [address] [place] [phone] Aug, [facility] [address] [facility] [id number] [address] [place] [phone] Aug, [facility] [address] [facility] [id number] [address] [place] [phone] Jul, [facility] [address] [facility] [id number] [address] [place] [phone] Jun, [facility] [address] [facility] [id number] [address] [place] [phone] Jun, [facility] [address] [id number] [address] [place] [phone] Jun, Callus of foot L84 [facility] [address] [id number] [address] [place] [phone] Jun, [facility] [address] [id number] [address] [place] [phone] Apr, Exercise counseling Z71.82 [place] [address] [id number] [address] [place] [phone] March, Moderate episode of recurren t major depressive disorder F33.1 [place] [address] [id number] [address] [place] [phone] March, Moderate episode of recurren t major depressive disorder F33.1 [place] [address] [id number] [address] [place] [phone] March, Exercise counseling Z71.82 [place] [address] [id number] [address] [place] [phone] March, [place] [address] [id number] [address] [place] [phone] March, Exercise counseling Z71.82 [place] [address] [facility] [id number] [address] [place] [phone] March, Right otitis media with effu yousuf H65.91 ; 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 and Diabetes type 2, controlled E11.9 [place] [address] [id number] [address] [place] [phone] March, Moderate episode of recurren t major depressive disorder F33.1 [place] [address] [id number] [address] [place] [id number] March, Exercise counseling Z71.82 [place] [address] [facility] [id number] [address] [place] [phone] March, Exercise counseling Z71.82 [place] [address] [facility] [id number] [address] [place] [phone] March, Callus of foot L84 [facility] [address] [facility] [id number] [address] [place] [phone] Feb, Moderate episode of recurren t major depressive disorder F33.1 [facility] [address] [facility] [id number] [address] [place] [phone] Feb, [facility] [address] [facility] [id number] [address] [place] [phone] Feb, Moderate episode of recurren t major depressive disorder F33.1 [facility] [address] [facility] [id number] [address] [place] [phone] Feb, Diabetes type 2, controlled E11.9 and Essential hypertension I10 [facility] [address] [facility] [id number] [address] [place] [phone] Jan, [place] [address] [place] [id number] [address] [place] [phone] Jan, Callus of foot L84 [facility] [address] [facility] [id number] [address] [place] [phone] Jan, Moderate episode of recurren t major depressive disorder F33.1 [facility] [address] [facility] [id number] [address] [place] [phone] Jan, Moderate episode of recurren t major depressive disorder F33.1 [place] [address] [facility] [id number] [address] [place] [phone] Dec, Moderate episode of recurren t major depressive disorder F33.1 [facility] [address] [facility] [id number] [address] [place] [phone] Dec, Candidiasis of the esophagus B37.81 [facility] [address] [facility] [id number] [address] [place] [phone] Dec, [facility] [address] [facility] [id number] [address] [place] [phone] Dec, Fecal occult blood test posi tive R19.5 and Anemia, unspecified type D64.9 [facility] [address] [facility] [id number] [address] [place] [phone] Nov, Stool color black K92.1 [facility] [address] [facility] [id number] [address] [place] [phone] Nov, Stool color black K92.1 [place] [address] [facility] [id number] [address] [place] [phone] Nov, Stool color black K92.1 [place] [address] [facility] [id number] [address] [place] [phone] Nov, [place] [address] [facility] [id number] [address] [place] [phone] Nov, Moderate episode of recurren t major depressive disorder F33.1 [place] [address] [facility] [id number] [address] [place] [phone] Oct, Moderate episode of recurren t major depressive disorder F33.1 [place] [address] [facility] [id number] [address] [place] [phone] Oct, Callus of foot L84 and Contr olled type 2 diabetes mellitus without complication, without long-term current use of insulin E11.9 [place] [address] [facility] [id number] [address] [place] [phone] Oct, Moderate episode of recurren t major depressive disorder F33.1 [place] [address] [facility] [id number] [address] [place] [phone] Aug, Mood disorder F39 [place] [address] [facility] [id number] [address] [place] [phone] 05 Aug, 2018 Encounter for immunization Z 23 [place] [address] [facility] [id number] [address] [place] [phone] Jul, Moderate episode of recurren t major depressive disorder F33.1 [place] [address] [facility] [id number] [address] [place] [phone] Jul, Moderate episode of recurren t major depressive disorder F33.1 [facility] [address] [id number] [address] [place] [phone] May, [facility] [address] [id number] [address] [place] [phone] May, Moderate episode of recurren t major depressive disorder F33.1 [facility] [address] [id number] [address] [place] [phone] May, Moderate episode of recurren t major depressive disorder F33.1 [facility] [address] [id number] [address] [place] [phone] Apr, Benign prostatic hyperplasia with lower urinary tract symptoms N40.1 and Hesitancy of micturition R39.11 [place] [address] [facility] [id number] [address] [place] [phone] Apr, Moderate episode of recurren t major depressive disorder F33.1 [place] [id number] [id number] [address] [place] [phone] Apr, Unspecified mood [affective] disorder F39 and Primary insomnia F51.01 [place] [address] [facility] [id number] [address] [place] [phone] Apr, Primary insomnia F51.01 [place] [address] [facility] [id number] [address] [place] [phone] March, Foot callus L84 [facility] [address] [facility] [id number] [address] [place] [phone] Feb, Medicare annual wellness vis it, initial Z00.00 [facility] [address] [id number] [address] [place] [phone] Feb, Acute superficial venous thr ombosis of left lower extremity I82.812 [facility] [address] [id number] [address] [place] [phone] Feb, [facility] [address] [id number] [address] [place] [phone] Feb, [facility] [address] [id number] [address] [place] [phone] Feb, Acute superficial venous thr ombosis of left lower extremity I82.812 [facility] [address] [id number] [address] [place] [phone] Feb, [facility] [address] [facility] [id number] [address] [place] [phone] Feb, Other specified soft tissue disorders M79.89 and Pain in left leg M79.605 [facility] [address] [facility] [id number] [address] [place] [phone] Jan, Obstructive sleep apnea G47. 33 [facility] [address] [facility] [id number] [address] [place] [id number] Dec, Obstructive sleep apnea G47. 33 and Mood disorder F39 [facility] [address] [facility] [id number] [address] [place] [id number] Dec, [facility] [address] [facility] [id number] [address] [place] [phone] Dec, [facility] [address] [facility] [id number] [address] [place] [phone] Nov, Diabetes type 2, controlled E11.9 [facility] [address] [facility] [id number] [address] [place] [phone] Nov, Encounter for immunization Z 23 [facility] [address] [facility] [id number] [address] [place] [phone] Nov, Primary insomnia F51.01 [place] [address] [facility] [id number] [address] [place] [phone] 07 Oct, 2017 Medicare annual wellness vis it, subsequent Z00.00 and Mood disorder F39 [facility] [address] [facility] [id number] [address] [place] [id number] Sep, Mood disorder F39 [place] [id number] [facility] [id number] [address] [place] [phone] Aug, Primary insomnia F51.01 and Urinary hesitancy R39.11 [facility] [address] [facility] [id number] [address] [place] [phone] Aug, Primary insomnia F51.01 [facility] [address] [facility] [id number] [address] [place] [phone] Jul, Diabetes type 2, controlled E11.9 ; Primary insomnia F51.01 and Mood disorder F39 [facility] [address] [facility] [address] [id number] [id number] Jun, Mood disorder F39 [facility] [address] [id number] [place] [id number] Jun, [facility] [address] [facility] [id number] [address] [place] [phone] May, Nightmares F51.5 [facility] [address] [facility] [id number] [address] [place] [phone] May, Cognitive complaints R41.9 ; Unspecified mood [affective] disorder F39 and Primary insomnia F51.01 [facility] [address] [facility] [id number] [address] [place] [phone] Apr, Mood disorder F39 and Primar y insomnia F51.01 [facility] [address] [facility] [id number] [address] [place] [phone] Apr, Cognitive complaints R41.9 a nd Unspecified mood [affective] disorder F39 [facility] [address] [facility] [id number] [address] [place] [id number] Apr, Cognitive complaints R41.9 a nd Unspecified mood [affective] disorder F39 [facility] [address] [facility] [id number] [address] [place] [phone] March, [facility] [address] [facility] [id number] [address] [place] [phone] March, Diabetes type 2, controlled E11.9 and Essential hypertension I10 [facility] [address] [id number] [address] [place] [phone] March, Primary insomnia F51.01 ; Di abetes type 2, controlled E11.9 and Pain in right shoulder M25.511 [facility] [address] [id number] [address] [place] [phone] March, Cognitive complaints R41.9 a nd Unspecified mood [affective] disorder F39 [facility] [address] [id number] [address] [place] [phone] Feb, Other specified mental disor ders due to known physiological condition F06.8 [facility] [address] [id number] [address] [place] [phone] Jan, [facility] [address] [facility] [id number] [address] [place] [phone] Jan, [facility] [address] [facility] [id number] [address] [place] [phone] Dec, Diabetes type 2, controlled E11.9 ; Hypertension, benign I10 and Mood disorder F39 [facility] [address] [id number] [address] [place] [phone] 08 Dec, 2016 Medicare annual wellness vis it, initial Z00.00 [place] [address] [facility] [id number] [address] [place] [phone] Nov, Medicare welcome exam Z00.00 ; Encounter for immunization Z23 ; Medicare annual wellness visit, initial Z00.00 and Medicare annual wellness visit, subsequent Z00.00 [facility] [address] [id number] [address] [place] [phone] Oct, [facility] [address] [facility] [id number] [address] [place] [phone] Sep, [facility] [address] [facility] [id number] [address] [place] [phone] Aug, Encounter for immunization Z 23 and Callus L84 [facility] [address] [id number] [address] [place] [phone] 07 Aug, 2016 [facility] [address] [id number] [address] [place] [id number] Jul, Diabetes type 2, controlled E11.9 [facility] [address] [id number] [address] [place] [id number] Jul, Diabetes type 2, controlled E11.9 [facility] [address] [id number] [address] [place] [phone] Jun, [facility] [address] [id number] [address] [place] [phone] Jun, Hypertension, benign I10 ; M ood disorder F39 and Diabetes type 2, controlled E11.9 [facility] [address] [id number] [address] [place] [phone] Jun, Mood disorder F39 [facility] [address] [id number] [address] [place] [phone] May, [facility] [address] [id number] [address] [place] [id number] May, Mood disorder F39 [facility] [address] [id number] [address] [place] [phone] May, Mood disorder F39 [facility] [address] [facility] [id number] [address] [place] [phone] 16 Apr, 2016 Controlled type 2 diabetes m ellitus without complication, without long-term current use of insulin E11.9 ; Essential hypertension I10 and Pain in right shoulder M25.511 [facility] [address] [id number] [address] [place] [phone] 08 Apr, 2016 Mood disorder F39 [facility] [address] [facility] [id number] [address] [place] [phone] 07 Apr, 2016 Pre-op evaluation Z01.818 [facility] [address] [facility] [id number] [address] [place] [phone] March, Mood disorder F39 [facility] [address] [id number] [address] [place] [phone] Feb, [facility] [address] [id number] [address] [place] [phone] Feb, Shoulder pain, right M25.511 [facility] [address] [id number] [address] [place] [phone] Feb, Shoulder pain, right M25.511 [facility] [address] [id number] [address] [place] [id number] Feb, Shoulder pain, right M25.511 [facility] [address] [id number] [address] [place] [id number] Feb, Shoulder pain, right M25.511 [facility] [address] [id number] [address] [place] [id number] Jan, Shoulder pain, right M25.511 [facility] [address] [id number] [address] [place] [id number] Jan, Shoulder pain, right M25.511 [facility] [address] [id number] [address] [place] [phone] Jan, [facility] [address] [id number] [address] [place] [phone] Jan, Diabetes type 2, controlled E11.9 [facility] [address] [id number] [address] [place] [phone] Jan, Shoulder pain, right M25.511 ; Diabetes mellitus without mention of complication, type II or unspecified type, not stated as uncontrolled 250.00 and Diabetes type 2, controlled E11.9 [facility] [address] [id number] [address] [place] [phone] Jan, [facility] [address] [id number] [address] [place] [phone] Jan, [facility] [address] [phone] 10 Dec, 2015 [facility] [address] [phone] Oct, Callus of foot L84 [place] [address] [address] Oct, Anxiety F41.9 ; Callus of fo ot L84 and Dysuria R30.0 [place] [address] [address] Sep, Diabetes mellitus without me ntion of complication, type II or unspecified type, not stated as uncontrolled 250.00 [place] [address] [address] Aug, Diabetes mellitus without me ntion of complication, type II or unspecified type, not stated as uncontrolled 250.00 [place] [address] [address] Jul, [facility] [address] [address] Jul, [place] [address] [address] Jul, Diabetes mellitus without me ntion of complication, type II or unspecified type, not stated as uncontrolled 250.00 ; Essential hypertension, benign 401.1 and Anxiety state, unspecified 300.00 [facility] [address] [address] Jul, [facility] [address] [address] Jun, [facility] [address] [address] Jun, [facility] [address] [address] May, [facility] [address] [id number] [address] [place] [address], [place] [address] May, [facility] [address] [id number] [address] [place] [address], [place] [address] Apr, [facility] [address] [id number] [address] [place] [address], [place] [address] Apr, Mood disorder 296.90 [facility] [address] [id number] [address] [place] [address], [place] [address] March, [facility] [address] [id number] [address] [place] [address], [place] [address] Feb, [facility] [address] [id number] [address] [place] [address], [place] [address] Feb, [facility] [address] [id number] [address] [place] [address], [place] [address] Jan, [facility] [address] [id number] [address] [place] [address], [place] [address] Jan, [facility] [address] [id number] [address] [place] [address], [place] [address] Jan, [facility] [address] [id number] [address] [place] [address], [place] [address] Jan, [facility] [address] [id number] [address] [place] [address], [place] [address] Jan, [facility] [address] [id number] [address] [place] [address], [place] [address] Jan, [facility] [address] [id number] [address] [place] [address], [place] [address] Jan, [facility] [address] [id number] [address] [place] [address], [place] [address] Jan, [facility] [address] [id number] [address] [place] [address], [place] [address] Dec, [facility] [address] [id number] [address] [place] [id number] Dec, [facility] [address] [id number] [address] [place] [address], [place] [address] Nov, [facility] [address] [id number] [address] [place] [address], [place] [address] Nov, [facility] [address] [id number] [address] [place] [address], [place] [address] Nov, [facility] [address] [id number] [address] [place] [address], [place] [address] Nov, [facility] [address] [id number] [address] [place] [address], [place] [address] Oct, [facility] [address] [id number] [address] [place] [address], [place] [address] Oct, [facility] [address] [id number] [address] [place] [address], [place] [address] Oct, [facility] [address] [id number] [address] [place] [address], [place] [address] Oct, [facility] [address] [id number] [address] [place] [address], [place] [address] Oct, [facility] [address] [id number] [address] [place] [address], [place] [address] Oct, [facility] [address] [id number] [address] [place] [address], [place] [address] Oct, [facility] [address] [id number] [address] [place] [address], [place] [address] Oct, [facility] [address] [id number] [address] [place] [address], [place] [address] Oct, [facility] [address] [id number] [address] [place] [address], [place] [address] Oct, [facility] [address] [id number] [address] [place] [address], [place] [address] Sep, [facility] [address] [id number] [address] [place] [address], [place] [address] Sep, [facility] [address] [id number] [address] [place] [address], [place] [address] Sep, [facility] [address] [id number] [address] [place] [address], [place] [address] Sep, [facility] [address] [id number] [address] [place] [address], [place] [address] Sep, [facility] [address] [id number] [address] [place] [address], [place] [address] Sep, [facility] [address] [id number] [address] [place] [address], [place] [address] Aug, [facility] [address] [id number] [address] [place] [address], [place] [address] Aug, [facility] [address] [id number] [address] [place] [address], [place] [address] Jul, [facility] [address] [id number] [address] [place] [address], [place] [address] Jul, [facility] [address] [id number] [address] [place] [address], [place] [address] Jun, [facility] [address] [id number] [address] [place] [address], [place] [address] Jun, [facility] [address] [id number] [address] [place] [address], [place] [address] May, [facility] [address] [id number] [address] [place] [address], [place] [address] May, [facility] [address] [id number] [address] [place] [address], [place] [address] Apr, [facility] [address] [id number] [address] [place] [address], [place] [address] Apr, [facility] [address] [id number] [address] [place] [address], [place] [address] Apr, [facility] [address] [id number] [address] [place] [address], [place] [address] Apr, [facility] [address] [id number] [address] [place] [address], [place] [address] March, [facility] [address] [id number] [address] [place] [address], [place] [address] March, [facility] [address] [id number] [address] [place] [address], [place] [address] Jan, [facility] [address] [id number] [address] [place] [address], [place] [address] Jan, [facility] [address] [id number] [address] [place] [address], [place] [address] Jan, [facility] [address] [id number] [address] [place] [address], [place] [address] Jan, [facility] [address] [id number] [address] [place] [address], [place] [address] Jan, [facility] [address] [id number] [address] [place] [address], [place] [address] Jan, [facility] [address] [id number] [address] [place] [address], [place] [address] Dec, [facility] [address] [id number] [address] [place] [address], [place] [address] Dec, [facility] [address] [id number] [address] [place] [address], [place] [address] Oct, [facility] [address] [id number] [address] [place] [address], [place] [address] Oct, [facility] [address] [id number] [address] [place] [address], [place] [address] Oct, [facility] [address] [id number] [address] [place] [address], [place] [address] Oct, [facility] [address] [id number] [address] [place] [address] Jul, [facility] [address] [id number] [address] [place] [address], [place] [address] Jul, [facility] [address] [id number] [address] [place] [address], [place] [address] Jul, [facility] [address] [id number] [address] [place] [address], [place] [address] Jun, [facility] [address] [id number] [address] [place] [address], [place] [address] Jun, [facility] [address] [id number] [address] [place] [address], [place] [address] May, [facility] [address] [id number] [address] [place] [address], [place] [address] May, [facility] [address] [id number] [address] [place] [address], [place] [address] March, [facility] [address] [id number] [address] [place] [address], [place] [address] March, [facility] [address] [id number] [address] [place] [address], [place] [address] Feb, [facility] [address] [id number] [address] [place] [address], [place] [address] Feb, [facility] [address] [id number] [address] [place] [address], [place] [address] Jan, [facility] [address] [id number] [address] [place] [address], [place] [address] Dec, [facility] [address] [id number] [address] [place] [address], [place] [address] Dec, [facility] [address] [id number] [address] [place] [address], [place] [address] Dec, [facility] [address] [id number] [address] [place] [address] Dec, [facility] [address] [id number] [address] [place] [address], [place] [address] Dec, [facility] [address] [id number] [address] [place] [address], [place] [address] Nov, [facility] [address] [id number] [address] [place] [address], [place] [address] Oct, [facility] [address] [id number] [address] [place] [address], [place] [address] Oct, [facility] [address] [id number] [address] [place] [address], [place] [address] Aug, [facility] [address] [id number] [address] [place] [address], [place] [address] Aug, [facility] [address] [id number] [address] [place] [address], [place] [address] Aug, [facility] [address] [id number] [address] [place] [address], [place] [address] Aug, [facility] [address] [id number] [address] [place] [address], [place] [address] Aug, [facility] [address] [id number] [address] [place] [address], [place] [address] Jul, [facility] [address] [id number] [address] [place] [address], [place] [address] Jul, [facility] [address] [id number] [address] [place] [address], [place] [address] Jun, [facility] [address] [id number] [address] [place] [address], [place] [address] Jun, [facility] [address] [id number] [address] [place] [address], [place] [address] May, [facility] [address] [id number] [address] [place] [address], [place] [address] May, [facility] [address] [id number] [address] [place] [address] May, [facility] [address] [id number] [address] [place] [address] Apr, [facility] [address] [id number] [address] [place] [address] Apr, [facility] [address] [id number] [address] [place] [address] March, [facility] [address] [id number] [address] [place] [address] March, [facility] [address] [id number] [address] [place] [address] Feb, [facility] [address] [id number] [address] [place] [phone] Feb, [facility] [address] [id number] [address] [place] [id number] Feb, [facility] [address] [id number] [address] [place] [id number] Feb, IMMUNIZATIONS No Known Immunizations SOCIAL HISTORY Never Assessed REASON FOR VISIT PLAN OF CARE VITAL SIGNS Height 71 in 2014-07-28 Weight 270.9 lbs 2014-07-28 Temperature 97.6 degrees Fahrenheit 2014-07-28 Heart Rate 74 bpm 2014-07-28 Respiratory Rate 18 2014-07-28 Blood pressure systolic 98 mmHg 2014-07-28 Blood pressure diastolic 60 mmHg 2014-07-28 MEDICATIONS Unknown Medications RESULTS No Results PROCEDURES Procedure Date Ordered Result Body Site GLYCATED HEMOGLOBIN TEST Jul 28, 2014 INSTRUCTIONS MEDICATIONS ADMINISTERED No Known Medications [...]
--- OUTSIDE RECORDS SUMMARY | 2020-06-17 08:48 | XMS REPORT ---
Author Author Barrie BUSTILLO Organization [facility] Address [address] [place] [address] Care Team Providers Care Lpn Per Diem Name Role Phone BARRIE BUSTILLO Unavailable PROBLEMS Type Condition ICD9-CM Code KHS60-SK Code Onset Dates Condition S tatus SNOMED Code Problem Essential hypertension I10 Active 67571725 Problem Urinary hesitancy R39.11 Active 59 21231 Problem Obstructive sleep apnea G47.33 Active 35476258 Problem Controlled type 2 diabetes m ellitus without complication, without long- term current use of insulin E11.9 Active 134978257 Problem Primary insomnia F51.01 Active 397 2004 Problem 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 Acti ve 79288569 Problem Diabetes type 2, controlled E11.9 Ac tive 15982886 Problem 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.1 Active 500524130 Problem Acute superficial venous thrombosis of left lower extremit y I82.812 Active [id number] Problem Hesitancy of micturition R39.11 Activ e 3106414 Problem Benign prostatic hyperplasia with lower urinary tract symptoms N40.1 Active 455835460 ALLERGIES No Information ENCOUNTERS Encounter Location Date Diagnosis [facility] [address] [facility] [id number] [address] [place] [phone] Jul, [facility] [address] [facility] [id number] [address] [place] [address] Jul, [facility] [address] [facility] [id number] [address] [place] [phone] Jul, [facility] [address] [facility] [id number] [address] [place] [address] Jul, [facility] [address] [facility] [id number] [address] [place] [phone] Jun, [facility] [address] [id number] [address] [place] [phone] Jun, [facility] [address] [id number] [address] [place] [address] Jun, Callus of foot L84 [facility] [address] [id number] [address] [place] [address] Jun, [facility] [address] [facility] [id number] [address] [place] [address] Apr, Exercise counseling Z71.82 [facility] [address] [id number] [address] [place] [phone] March, Moderate episode of recurren t major depressive disorder F33.1 [place] [address] [address] [facility] [id number] [address] [place] [phone] March, Moderate episode of recurren t major depressive disorder F33.1 [place] [address] [facility] [id number] [address] [place] [address] March, Exercise counseling Z71.82 [facility] [address] [facility] [id number] [address] [place] [address] March, [facility] [address] [facility] [id number] [address] [place] [address] March, Exercise counseling Z71.82 [place] [address] [facility] [id number] [address] [place] [address] March, Right otitis media with effu yousuf H65.91 ; 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 and Diabetes type 2, controlled E11.9 [facility] [address] [id number] [address] [place] [address] March, Moderate episode of recurren t major depressive disorder F33.1 [facility] [address] [facility] [id number] [address] [place] [address] March, Exercise counseling Z71.82 [facility] [address] [facility] [id number] [address] [place] [address] March, Exercise counseling Z71.82 [facility] [address] [facility] [id number] [address] [place] [address] March, Callus of foot L84 [place] [address] [facility] [id number] [address] [place] [address] Feb, Moderate episode of recurren t major depressive disorder F33.1 [place] [address] [facility] [id number] [address] [place] [address] Feb, [facility] [address] [facility] [id number] [address] [place] [address] Feb, Moderate episode of recurren t major depressive disorder F33.1 [place] [address] [facility] [id number] [address] [place] [address] Feb, Diabetes type 2, controlled E11.9 and Essential hypertension I10 [place] [address] [address] [place] [id number] [address] [place] [address] Jan, [facility] [address] [place] [id number] [address] [place] [address] Jan, Callus of foot L84 [place] [address] [place] [id number] [address] [place] [address] Jan, Moderate episode of recurren t major depressive disorder F33.1 [facility] [address] [place] [id number] [address] [place] [phone] Jan, Moderate episode of recurren t major depressive disorder F33.1 [facility] [address] [facility] [id number] [address] [place] [address] Dec, Moderate episode of recurren t major depressive disorder F33.1 [place] [address] [facility] [id number] [address] [place] [address] Dec, Candidiasis of the esophagus B37.81 [facility] [address] [facility] [id number] [address] [place] [address] Dec, [facility] [address] [facility] [id number] [address] [place] [address] Dec, Fecal occult blood test posi tive R19.5 and Anemia, unspecified type D64.9 [place] [address] [address] [facility] [id number] [address] [place] [address] Nov, Stool color black K92.1 [place] [address] [facility] [id number] [address] [place] [address] Nov, Stool color black K92.1 [place] [address] [facility] [id number] [address] [place] [address] Nov, Stool color black K92.1 [place] [address] [facility] [id number] [address] [place] [address] Nov, [place] [address] [facility] [id number] [address] [place] [address] Nov, Moderate episode of recurren t major depressive disorder F33.1 [place] [address] [address] [place] [id number] [address] [place] [address] Oct, Moderate episode of recurren t major depressive disorder F33.1 [place] [address] [facility] [id number] [address] [place] [address] Oct, Callus of foot L84 and Contr olled type 2 diabetes mellitus without complication, without long-term current use of insulin E11.9 [place] [address] [facility] [id number] [address] [place] [address] Oct, Moderate episode of recurren t major depressive disorder F33.1 [place] [address] [facility] [id number] [address] [place] [address] Aug, Mood disorder F39 [place] [address] [facility] [id number] [address] [place] [address] Aug, Encounter for immunization Z 23 [place] [address] [facility] [id number] [address] [place] [address] Jul, Moderate episode of recurren t major depressive disorder F33.1 [facility] [address] [id number] [address] [place] [address] Jul, Moderate episode of recurren t major depressive disorder F33.1 [facility] [address] [id number] [address] [place] [address] May, [facility] [address] [id number] [address] [place] [address] May, Moderate episode of recurren t major depressive disorder F33.1 [facility] [address] [id number] [address] [place] [address] May, Moderate episode of recurren t major depressive disorder F33.1 [facility] [address] [id number] [address] [place] [address] Apr, Benign prostatic hyperplasia with lower urinary tract symptoms N40.1 and Hesitancy of micturition R39.11 [place] [address] [id number] [address] [place] [address] Apr, Moderate episode of recurren t major depressive disorder F33.1 [facility] [address] [id number] [address] [place] [address] Apr, Unspecified mood [affective] disorder F39 and Primary insomnia F51.01 [facility] [address] [facility] [id number] [address] [place] [address] Apr, Primary insomnia F51.01 [facility] [address] [facility] [id number] [address] [place] [phone] March, Foot callus L84 [facility] [address] [id number] [address] [place] [address] Feb, Medicare annual wellness vis it, initial Z00.00 [facility] [address] [id number] [address] [place] [address] Feb, Acute superficial venous thr ombosis of left lower extremity I82.812 [facility] [address] [id number] [address] [place] [address] Feb, [facility] [address] [facility] [id number] [address] [place] [address] Feb, [facility] [address] [facility] [id number] [address] [place] [address] Feb, Acute superficial venous thr ombosis of left lower extremity I82.812 [facility] [address] [facility] [id number] [address] [place] [address] Feb, [facility] [address] [facility] [id number] [address] [place] [address] Feb, Other specified soft tissue disorders M79.89 and Pain in left leg M79.605 [facility] [address] [facility] [id number] [address] [place] [address] Jan, Obstructive sleep apnea G47. 33 [facility] [address] [place] [id number] [address] [place] [phone] Dec, Obstructive sleep apnea G47. 33 and Mood disorder F39 [facility] [id number] [place] [address] Dec, [facility] [address] [place] [id number] [address] [place] [address] Dec, [facility] [address] [place] [id number] [address] [place] [address] Nov, Diabetes type 2, controlled E11.9 [facility] [address] [facility] [id number] [address] [place] [address] Nov, Encounter for immunization Z 23 [facility] [address] [address] Nov, Primary insomnia F51.01 [facility] [address] [facility] [id number] [address] [place] [address] 07 Oct, 2017 Medicare annual wellness vis it, subsequent Z00.00 and Mood disorder F39 [facility] [address] [facility] [id number] [address] [place] [address] Sep, Mood disorder F39 [facility] [address] [facility] [id number] [address] [place] [address] Aug, Primary insomnia F51.01 and Urinary hesitancy R39.11 [facility] [address] [facility] [id number] [address] [place] [address] Aug, Primary insomnia F51.01 [facility] [address] [facility] [id number] [address] [place] [address] Jul, Diabetes type 2, controlled E11.9 ; Primary insomnia F51.01 and Mood disorder F39 [place] [address] [facility] [id number] [id number] Jun, Mood disorder F39 [facility] [address] [id number] [id number] Jun, [facility] [address] [facility] [id number] [address] [place] [address] May, Nightmares F51.5 [facility] [address] [facility] [id number] [address] [place] [address] May, Cognitive complaints R41.9 ; Unspecified mood [affective] disorder F39 and Primary insomnia F51.01 [facility] [address] [facility] [id number] [address] [place] [address] Apr, Mood disorder F39 and Primar y insomnia F51.01 [facility] [address] [facility] [id number] [address] [place] [address] Apr, Cognitive complaints R41.9 a nd Unspecified mood [affective] disorder F39 [facility] [address] [facility] [id number] [address] [place] [address] Apr, Cognitive complaints R41.9 a nd Unspecified mood [affective] disorder F39 [facility] [address] [facility] [id number] [address] [place] [address] March, [facility] [address] [facility] [id number] [address] [place] [address] March, Diabetes type 2, controlled E11.9 and Essential hypertension I10 [place] [address] [facility] [id number] [address] [place] [address] March, Primary insomnia F51.01 ; Di abetes type 2, controlled E11.9 and Pain in right shoulder M25.511 [facility] [address] [facility] [id number] [address] [place] [address] March, Cognitive complaints R41.9 a nd Unspecified mood [affective] disorder F39 [place] [address] [facility] [id number] [address] [place] [address] Feb, Other specified mental disor ders due to known physiological condition F06.8 [place] [address] [address] [place] [id number] [address] [place] [address] Jan, [place] [address] [place] [id number] [address] [place] [address] Jan, [facility] [address] [place] [id number] [address] [place] [address] Dec, Diabetes type 2, controlled E11.9 ; Hypertension, benign I10 and Mood disorder F39 [facility] [address] [place] [id number] [address] [place] [address] 08 Dec, 2016 Medicare annual wellness vis it, initial Z00.00 [place] [address] [facility] [id number] [address] [place] [address] 05 Nov, 2016 Medicare welcome exam Z00.00 ; Encounter for immunization Z23 ; Medicare annual wellness visit, initial Z00.00 and Medicare annual wellness visit, subsequent Z00.00 [place] [address] [facility] [id number] [address] [place] [address] Oct, [facility] [address] [place] [id number] [address] [place] [address] Sep, [place] [address] [place] [address] Aug, Encounter for immunization Z 23 and Callus L84 [facility] [address] [place] [id number] [address] [place] [address] Aug, [facility] [address] [facility] [id number] [address] [place] [address] Jul, Diabetes type 2, controlled E11.9 [facility] [address] [place] [id number] [address] [place] [address] Jul, Diabetes type 2, controlled E11.9 [facility] [address] [place] [id number] [address] [place] [address] Jun, [facility] [address] [place] [id number] [place] [address] Jun, Hypertension, benign I10 ; M ood disorder F39 and Diabetes type 2, controlled E11.9 [facility] [address] [place] [id number] [address] [place] [address] Jun, Mood disorder F39 [facility] [address] [place] [id number] [address] [place] [address] May, [facility] [address] [place] [id number] [address] [place] [address] May, Mood disorder F39 [place] [address] [place] [id number] [address] [place] [address] May, Mood disorder F39 [facility] [address] [place] [id number] [address] [place] [address] 16 Apr, 2016 Controlled type 2 diabetes m ellitus without complication, without long-term current use of insulin E11.9 ; Essential hypertension I10 and Pain in right shoulder M25.511 [facility] [address] [facility] [id number] [address] [place] [address] 08 Apr, 2016 Mood disorder F39 [facility] [address] [place] [id number] [address] [place] [address] Apr, Pre-op evaluation Z01.818 [facility] [address] [id number] [address] [place] [address] March, Mood disorder F39 [facility] [address] [id number] [address] [place] [address] Feb, [facility] [address] [id number] [address] [place] [address] Feb, Shoulder pain, right M25.511 [facility] [address] [id number] [address] [place] [address] Feb, Shoulder pain, right M25.511 [facility] [address] [id number] [address] [place] [address] Feb, Shoulder pain, right M25.511 [place] [address] [id number] [address] [place] [address] Feb, Shoulder pain, right M25.511 [facility] [address] [id number] [address] [place] [address] Jan, Shoulder pain, right M25.511 [facility] [address] [id number] [address] [place] [address] Jan, Shoulder pain, right M25.511 [place] [address] [id number] [address] [place] [address] 16 Jan, 2016 [facility] [address] [facility] [id number] [address] [place] [address] Jan, Diabetes type 2, controlled E11.9 [facility] [address] [id number] [address] [place] [address] Jan, Shoulder pain, right M25.511 ; Diabetes mellitus without mention of complication, type II or unspecified type, not stated as uncontrolled 250.00 and Diabetes type 2, controlled E11.9 [facility] [address] [id number] [address] [place] [address] Jan, [place] [address] [place] [id number] [address] [place] [address] Jan, [facility] [address] [address] Dec, [facility] [address] [place] [id number] [address] [place] [address] Oct, Callus of foot L84 [facility] [address] [address] Oct, Anxiety F41.9 ; Callus of fo ot L84 and Dysuria R30.0 [place] [address] [address] Sep, Diabetes mellitus without me ntion of complication, type II or unspecified type, not stated as uncontrolled 250.00 [place] [address] [address] Aug, Diabetes mellitus without me ntion of complication, type II or unspecified type, not stated as uncontrolled 250.00 [facility] [address] [place] [id number] [address] [place] [address] Jul, [facility] [address] [address] Jul, [facility] [address] [place] [id number] [address] [place] [id number] Jul, Diabetes mellitus without me ntion of complication, type II or unspecified type, not stated as uncontrolled 250.00 ; Essential hypertension, benign 401.1 and Anxiety state, unspecified 300.00 [facility] ([facility] [address] [place] [id number] [address] [place] [id number] Jul, [facility] [address] [id number] Jun, [facility] [address] [place] [id number] [address] [place] [id number] Jun, [facility] [address] [id number] [address] [place] [address], [place] [address] 15 May, 2015 [facility] [address] [id number] [address] [place] [address], [place] [address] May, [facility] [address] [id number] [address] [place] [address], [place] [address] Apr, [facility] [address] [id number] [address] [place] [address], [place] [address] Apr, Mood disorder 296.90 [facility] [address] [id number] [address] [place] [address], [place] [address] March, [facility] [address] [id number] [address] [place] [address], [place] [address] Feb, [facility] [address] [id number] [address] [place] [address], [place] [address] Feb, [facility] [address] [id number] [address] [place] [address], [place] [address] Jan, [facility] [address] [id number] [address] [place] [address], [place] [address] Jan, [facility] [address] [id number] [address] [place] [address], [place] [address] Jan, [facility] [address] [id number] [address] [place] [address], [place] [address] Jan, [facility] [address] [id number] [address] [place] [address], [place] [address] Jan, [facility] [address] [id number] [address] [place] [address], [place] [address] 20 Jan, 2015 [facility] [address] [id number] [address] [place] [address], [place] [address] Jan, [facility] [address] [id number] [address] [place] [address], [place] [address] Jan, [facility] [address] [id number] [address] [place] [address], [place] [address] Dec, [facility] [address] [id number] [address] [place] [address], [place] [address] Dec, [facility] [address] [id number] [address] [place] [address], [place] [address] Nov, [facility] [address] [id number] [address] [place] [address], [place] [address] Nov, [facility] [address] [id number] [address] [place] [address], [place] [address] Nov, [facility] [address] [id number] [address] [place] [address], [place] [address] Nov, [facility] [address] [id number] [address] [place] [address], [place] [address] Oct, [facility] [address] [id number] [address] [place] [address], [place] [address] Oct, [facility] [address] [id number] [address] [place] [address], [place] [address] Oct, [facility] [address] [id number] [address] [place] [address], [place] [address] Oct, [facility] [address] [id number] [address] [place] [address], [place] [address] Oct, [facility] [address] [id number] [address] [place] [address], [place] [address] Oct, [facility] [address] [id number] [address] [place] [address], [place] [address] Oct, [facility] [address] [id number] [address] [place] [address], [place] [address] Oct, [facility] [address] [id number] [address] [place] [address], [place] [address] 15 Oct, 2014 [facility] [address] [id number] [address] [place] [address], [place] [address] Oct, [facility] [address] [id number] [address] [place] [address], [place] [address] Sep, [facility] [address] [id number] [address] [place] [address], [place] [address] Sep, [facility] [address] [id number] [address] [place] [address], [place] [address] Sep, [facility] [address] [id number] [address] [place] [address], [place] [address] Sep, [facility] [address] [id number] [address] [place] [address], [place] [address] Sep, [facility] [address] [id number] [address] [place] [address], [place] [address] Sep, [facility] [address] [id number] [address] [place] [address], [place] [address] Aug, [facility] [address] [id number] [address] [place] [address], [place] [address] Aug, [facility] [address] [id number] [address] [place] [address], [place] [address] Jul, [facility] [address] [id number] [address] [place] [address], [place] [address] Jul, [facility] [address] [id number] [address] [place] [address], [place] [address] Jun, [facility] [address] [id number] [address] [place] [address], [place] [address] Jun, [facility] [address] [id number] [address] [place] [address], [place] [address] May, [facility] [address] [id number] [address] [place] [address], [place] [address] May, [facility] [address] [id number] [address] [place] [address], [place] [address] Apr, [facility] [address] [id number] [address] [place] [address], [place] [address] Apr, [facility] [address] [id number] [address] [place] [address], [place] [address] Apr, [facility] [address] [id number] [address] [place] [address], [place] [address] Apr, [facility] [address] [id number] [address] [place] [address], [place] [address] March, [facility] [address] [id number] [address] [place] [address], [place] [address] March, [facility] [address] [id number] [address] [place] [address], [place] [address] Jan, [facility] [address] [id number] [address] [place] [address], [place] [address] Jan, [facility] [address] [id number] [address] [place] [address], [place] [address] Jan, [facility] [address] [id number] [address] [place] [address], [place] [address] Jan, [facility] [address] [id number] [address] [place] [address], [place] [address] Jan, [facility] [address] [id number] [address] [place] [address], [place] [address] Jan, [facility] [address] [id number] [address] [place] [address], [place] [address] Dec, [facility] [address] [id number] [address] [place] [address], [place] [address] Dec, [facility] [address] [id number] [address] [place] [address], [place] [address] Oct, [facility] [address] [id number] [address] [place] [address], [place] [address] Oct, [facility] [address] [id number] [address] [place] [address], [place] [address] Oct, [facility] [address] [id number] [address] [place] [address] Oct, [facility] [address] [id number] [address] [place] [address], [place] [address] Jul, [facility] [address] [id number] [address] [place] [address], [place] [address] Jul, [facility] [address] [id number] [address] [place] [address], [place] [address] Jul, [facility] [address] [id number] [address] [place] [address], [place] [address] Jun, [facility] [address] [id number] [address] [place] [address], [place] [address] Jun, [facility] [address] [id number] [address] [place] [address], [place] [address] May, [facility] [address] [id number] [address] [place] [address], [place] [address] May, [facility] [address] [id number] [address] [place] [address], [place] [address] March, [facility] [address] [id number] [address] [place] [address], [place] [address] March, [facility] [address] [id number] [address] [place] [address], [place] [address] Feb, [facility] [address] [id number] [address] [place] [address], [place] [address] Feb, [facility] [address] [id number] [address] [place] [address], [place] [address] Jan, [facility] [address] [id number] [address] [place] [address], [place] [address] Dec, [facility] [address] [id number] [address] [place] [address], [place] [address] Dec, [facility] [address] [id number] [address] [place] [address] Dec, [facility] [address] [id number] [address] [place] [address], [place] [address] 14 Dec, 2012 [facility] [address] [id number] [address] [place] [address], [place] [address] 13 Dec, 2012 [facility] [address] [id number] [address] [place] [address], [place] [address] Nov, [facility] [address] [id number] [address] [place] [address], [place] [address] Oct, [facility] [address] [id number] [address] [place] [address], [place] [address] Oct, [facility] [address] [id number] [address] [place] [address], [place] [address] Aug, [facility] [address] [id number] [address] [place] [address], [place] [address] Aug, [facility] [address] [id number] [address] [place] [address], [place] [address] Aug, [facility] [address] [id number] [address] [place] [address], [place] [address] Aug, [facility] [address] [id number] [address] [place] [address], [place] [address] Aug, [facility] [address] [id number] [address] [place] [address], [place] [address] Jul, [facility] [address] [id number] [address] [place] [id number] 18 Jul, 2012 [facility] [address] [id number] [address] [place] [address], [place] [address] Jun, [facility] [address] [id number] [address] [place] [address], [place] [address] Jun, [facility] [address] [id number] [address] [place] [address] May, [facility] [address] [id number] [address] [place] [address] May, [facility] [address] [id number] [address] [place] [address] May, [facility] [address] [id number] [address] [place] [address] Apr, [facility] [address] [id number] [address] [place] [address] Apr, [facility] [address] [id number] [address] [place] [address] March, [facility] [address] [id number] [address] [place] [address] March, [facility] [address] [id number] [address] [place] [id number] Feb, [facility] [address] [facility] [id number] [address] [place] [id number] Feb, [facility] [address] [id number] [address] [place] [address] Feb, [facility] [address] [facility] [id number] [address] [place] [id number] Feb, IMMUNIZATIONS No Known Immunizations SOCIAL HISTORY [...]
--- OUTSIDE RECORDS SUMMARY | 2020-06-17 08:48 | XMS REPORT ---
Author Author Barrie BUSTILLO Organization [facility] Address [address] [place] [address] Care Team Providers Care Jumpbasting Facing Baster Name Role Phone BARRIE BUSTILLO Unavailable PROBLEMS Type Condition ICD9-CM Code LQN35-RC Code Onset Dates Condition S tatus SNOMED Code Problem Essential hypertension I10 Active 51767349 Problem Urinary hesitancy R39.11 Active 59 59915 Problem Obstructive sleep apnea G47.33 Active 73994735 Problem Controlled type 2 diabetes m ellitus without complication, without long- term current use of insulin E11.9 Active 905756896 Problem Primary insomnia F51.01 Active 397 2004 Problem 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 Acti ve 90266916 Problem Diabetes type 2, controlled E11.9 Ac tive 38116590 Problem 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.1 Active 559000736 Problem Acute superficial venous thrombosis of left lower extremit y I82.812 Active [id number] Problem Hesitancy of micturition R39.11 Activ e 5710417 Problem Benign prostatic hyperplasia with lower urinary tract symptoms N40.1 Active 585956597 ALLERGIES No Information ENCOUNTERS Encounter Location Date Diagnosis [facility] [address] [facility] [id number] [address] [place] [id number] Jul, [facility] [address] [facility] [id number] [address] [place] [id number] Jul, [facility] [address] [facility] [id number] [address] [place] [phone] Jul, [facility] [address] [facility] [id number] [address] [place] [phone] Jun, [facility] [address] [facility] [id number] [address] [place] [phone] Jun, [facility] [address] [id number] [address] [place] [phone] Jun, Callus of foot L84 [facility] [address] [id number] [address] [place] [id number] Jun, [facility] [address] [id number] [address] [place] [phone] Apr, Exercise counseling Z71.82 [facility] [address] [id number] [address] [place] [phone] March, Moderate episode of recurren t major depressive disorder F33.1 [place] [address] [id number] [address] [place] [phone] March, Moderate episode of recurren t major depressive disorder F33.1 [place] [address] [id number] [address] [place] [phone] March, Exercise counseling Z71.82 [place] [address] [id number] [address] [place] [phone] March, [place] [address] [id number] [address] [place] [phone] March, Exercise counseling Z71.82 [place] [address] [facility] [id number] [address] [place] [phone] March, Right otitis media with effu yousuf H65.91 ; 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 and Diabetes type 2, controlled E11.9 [place] [address] [id number] [address] [place] [phone] March, Moderate episode of recurren t major depressive disorder F33.1 [place] [address] [id number] [address] [place] [phone] March, Exercise counseling Z71.82 [place] [address] [facility] [id number] [address] [place] [phone] March, Exercise counseling Z71.82 [place] [address] [facility] [id number] [address] [place] [phone] March, Callus of foot L84 [facility] [address] [facility] [id number] [address] [place] [id number] Feb, Moderate episode of recurren t major depressive disorder F33.1 [facility] [address] [facility] [id number] [address] [place] [phone] Feb, [facility] [address] [facility] [id number] [address] [place] [phone] Feb, Moderate episode of recurren t major depressive disorder F33.1 [facility] [address] [facility] [id number] [address] [place] [id number] Feb, Diabetes type 2, controlled E11.9 and Essential hypertension I10 [facility] [address] [facility] [id number] [address] [place] [phone] Jan, [place] [address] [place] [id number] [address] [place] [id number] Jan, Callus of foot L84 [facility] [address] [facility] [id number] [address] [place] [id number] Jan, Moderate episode of recurren t major depressive disorder F33.1 [facility] [address] [facility] [id number] [address] [place] [phone] Jan, Moderate episode of recurren t major depressive disorder F33.1 [place] [address] [facility] [id number] [address] [place] [phone] Dec, Moderate episode of recurren t major depressive disorder F33.1 [facility] [address] [facility] [id number] [address] [place] [phone] Dec, Candidiasis of the esophagus B37.81 [facility] [address] [facility] [id number] [address] [place] [phone] Dec, [facility] [address] [facility] [id number] [address] [place] [phone] Dec, Fecal occult blood test posi tive R19.5 and Anemia, unspecified type D64.9 [facility] [address] [facility] [id number] [address] [place] [phone] Nov, Stool color black K92.1 [facility] [address] [facility] [id number] [address] [place] [phone] Nov, Stool color black K92.1 [place] [address] [facility] [id number] [address] [place] [phone] Nov, Stool color black K92.1 [place] [address] [facility] [id number] [address] [place] [phone] Nov, [place] [address] [facility] [id number] [address] [place] [phone] Nov, Moderate episode of recurren t major depressive disorder F33.1 [place] [address] [facility] [id number] [address] [place] [phone] Oct, Moderate episode of recurren t major depressive disorder F33.1 [place] [address] [facility] [id number] [address] [place] [phone] Oct, Callus of foot L84 and Contr olled type 2 diabetes mellitus without complication, without long-term current use of insulin E11.9 [place] [address] [facility] [id number] [address] [place] [phone] Oct, Moderate episode of recurren t major depressive disorder F33.1 [place] [address] [facility] [id number] [address] [place] [phone] Aug, Mood disorder F39 [place] [address] [facility] [id number] [address] [place] [phone] 05 Aug, 2018 Encounter for immunization Z 23 [place] [address] [facility] [id number] [address] [place] [phone] Jul, Moderate episode of recurren t major depressive disorder F33.1 [place] [address] [facility] [id number] [address] [place] [phone] Jul, Moderate episode of recurren t major depressive disorder F33.1 [facility] [address] [id number] [address] [place] [phone] May, [facility] [address] [id number] [address] [place] [phone] May, Moderate episode of recurren t major depressive disorder F33.1 [facility] [address] [id number] [address] [place] [phone] May, Moderate episode of recurren t major depressive disorder F33.1 [facility] [address] [id number] [address] [place] [phone] Apr, Benign prostatic hyperplasia with lower urinary tract symptoms N40.1 and Hesitancy of micturition R39.11 [place] [address] [facility] [id number] [address] [place] [phone] Apr, Moderate episode of recurren t major depressive disorder F33.1 [place] [address] [id number] [address] [place] [phone] Apr, Unspecified mood [affective] disorder F39 and Primary insomnia F51.01 [place] [address] [facility] [id number] [address] [place] [id number] Apr, Primary insomnia F51.01 [place] [address] [facility] [id number] [address] [place] [phone] March, Foot callus L84 [facility] [address] [facility] [id number] [address] [place] [phone] Feb, Medicare annual wellness vis it, initial Z00.00 [facility] [address] [id number] [address] [place] [phone] Feb, Acute superficial venous thr ombosis of left lower extremity I82.812 [facility] [address] [id number] [address] [place] [id number] Feb, [facility] [address] [id number] [address] [place] [phone] Feb, [facility] [address] [id number] [address] [place] [phone] Feb, Acute superficial venous thr ombosis of left lower extremity I82.812 [facility] [address] [id number] [address] [place] [phone] Feb, [facility] [address] [facility] [id number] [address] [place] [phone] Feb, Other specified soft tissue disorders M79.89 and Pain in left leg M79.605 [facility] [address] [facility] [id number] [address] [place] [phone] Jan, Obstructive sleep apnea G47. 33 [facility] [address] [facility] [id number] [address] [place] [phone] Dec, Obstructive sleep apnea G47. 33 and Mood disorder F39 [facility] [address] [facility] [id number] [address] [place] [phone] Dec, [facility] [address] [facility] [id number] [address] [place] [phone] Dec, [facility] [address] [facility] [id number] [address] [place] [phone] Nov, Diabetes type 2, controlled E11.9 [facility] [address] [facility] [id number] [address] [place] [phone] Nov, Encounter for immunization Z 23 [facility] [address] [facility] [id number] [address] [place] [phone] Nov, Primary insomnia F51.01 [place] [address] [facility] [id number] [address] [place] [phone] 07 Oct, 2017 Medicare annual wellness vis it, subsequent Z00.00 and Mood disorder F39 [facility] [address] [facility] [id number] [address] [place] [phone] Sep, Mood disorder F39 [place] [address] [facility] [id number] [address] [place] [phone] Aug, Primary insomnia F51.01 and Urinary hesitancy R39.11 [facility] [address] [facility] [id number] [address] [place] [id number] Aug, Primary insomnia F51.01 [facility] [address] [facility] [id number] [address] [place] [phone] Jul, Diabetes type 2, controlled E11.9 ; Primary insomnia F51.01 and Mood disorder F39 [facility] [address] [facility] [id number] [id number] Jun, Mood disorder F39 [facility] [address] [id number] [place] [id number] Jun, [facility] [address] [facility] [id number] [address] [place] [phone] May, Nightmares F51.5 [facility] [address] [facility] [id number] [address] [place] [phone] May, Cognitive complaints R41.9 ; Unspecified mood [affective] disorder F39 and Primary insomnia F51.01 [facility] [address] [facility] [id number] [address] [place] [phone] Apr, Mood disorder F39 and Primar y insomnia F51.01 [facility] [address] [facility] [id number] [address] [place] [phone] Apr, Cognitive complaints R41.9 a nd Unspecified mood [affective] disorder F39 [facility] [address] [facility] [id number] [address] [place] [phone] Apr, Cognitive complaints R41.9 a nd Unspecified mood [affective] disorder F39 [facility] [address] [facility] [id number] [address] [place] [phone] March, [facility] [address] [facility] [id number] [address] [place] [phone] March, Diabetes type 2, controlled E11.9 and Essential hypertension I10 [facility] [address] [id number] [address] [place] [address] March, Primary insomnia F51.01 ; Di abetes type 2, controlled E11.9 and Pain in right shoulder M25.511 [facility] [address] [id number] [address] [place] [phone] March, Cognitive complaints R41.9 a nd Unspecified mood [affective] disorder F39 [facility] [address] [id number] [address] [place] [phone] Feb, Other specified mental disor ders due to known physiological condition F06.8 [facility] [address] [id number] [address] [place] [phone] Jan, [facility] [address] [facility] [id number] [address] [place] [phone] Jan, [facility] [address] [facility] [id number] [address] [place] [id number] Dec, Diabetes type 2, controlled E11.9 ; Hypertension, benign I10 and Mood disorder F39 [facility] [address] [id number] [address] [place] [id number] 08 Dec, 2016 Medicare annual wellness vis it, initial Z00.00 [place] [address] [facility] [id number] [address] [place] [phone] Nov, Medicare welcome exam Z00.00 ; Encounter for immunization Z23 ; Medicare annual wellness visit, initial Z00.00 and Medicare annual wellness visit, subsequent Z00.00 [facility] [address] [id number] [address] [place] [phone] Oct, [facility] [address] [facility] [id number] [address] [place] [phone] Sep, [facility] [address] [facility] [id number] [address] [place] [phone] Aug, Encounter for immunization Z 23 and Callus L84 [facility] [address] [id number] [address] [place] [phone] 07 Aug, 2016 [facility] [address] [id number] [address] [place] [id number] Jul, Diabetes type 2, controlled E11.9 [facility] [address] [id number] [address] [place] [phone] Jul, Diabetes type 2, controlled E11.9 [facility] [address] [id number] [address] [place] [phone] Jun, [facility] [address] [id number] [address] [place] [id number] Jun, Hypertension, benign I10 ; M ood disorder F39 and Diabetes type 2, controlled E11.9 [facility] [address] [id number] [address] [place] [phone] Jun, Mood disorder F39 [facility] [address] [id number] [address] [place] [phone] May, [facility] [address] [id number] [address] [place] [phone] May, Mood disorder F39 [facility] [address] [id number] [address] [place] [phone] May, Mood disorder F39 [facility] [address] [facility] [id number] [address] [place] [address] 16 Apr, 2016 Controlled type 2 diabetes m ellitus without complication, without long-term current use of insulin E11.9 ; Essential hypertension I10 and Pain in right shoulder M25.511 [facility] [address] [id number] [address] [place] [address] 08 Apr, 2016 Mood disorder F39 [facility] [address] [facility] [id number] [address] [place] [id number] 07 Apr, 2016 Pre-op evaluation Z01.818 [facility] [address] [facility] [id number] [address] [place] [phone] March, Mood disorder F39 [facility] [address] [id number] [address] [place] [id number] Feb, [facility] [address] [id number] [address] [place] [address] Feb, Shoulder pain, right M25.511 [facility] [address] [id number] [address] [place] [phone] Feb, Shoulder pain, right M25.511 [facility] [address] [id number] [address] [place] [phone] Feb, Shoulder pain, right M25.511 [facility] [address] [id number] [address] [place] [address] Feb, Shoulder pain, right M25.511 [facility] [address] [id number] [address] [place] [address] Jan, Shoulder pain, right M25.511 [facility] [address] [id number] [address] [place] [address] Jan, Shoulder pain, right M25.511 [facility] [address] [id number] [address] [place] [phone] Jan, [facility] [address] [id number] [address] [place] [id number] Jan, Diabetes type 2, controlled E11.9 [facility] [address] [id number] [address] [place] [address] Jan, Shoulder pain, right M25.511 ; Diabetes mellitus without mention of complication, type II or unspecified type, not stated as uncontrolled 250.00 and Diabetes type 2, controlled E11.9 [facility] [address] [id number] [address] [place] [phone] Jan, [facility] [address] [id number] [address] [place] [phone] Jan, [facility] [address] [id number] 10 Dec, 2015 [facility] [address] [id number] Oct, Callus of foot L84 [place] [address] [id number] Oct, Anxiety F41.9 ; Callus of fo ot L84 and Dysuria R30.0 [place] [address] [address] Sep, Diabetes mellitus without me ntion of complication, type II or unspecified type, not stated as uncontrolled 250.00 [place] [address] [address] Aug, Diabetes mellitus without me ntion of complication, type II or unspecified type, not stated as uncontrolled 250.00 [place] [address] [address] Jul, [facility] [address] [address] Jul, [place] [address] [address] Jul, Diabetes mellitus without me ntion of complication, type II or unspecified type, not stated as uncontrolled 250.00 ; Essential hypertension, benign 401.1 and Anxiety state, unspecified 300.00 [facility] [address] [address] Jul, [facility] [address] [address] Jun, [facility] [address] [id number] Jun, [facility] [address] [address] May, [facility] [address] [id number] [address] [place] [address], [place] [address] May, [facility] [address] [id number] [address] [place] [address], [place] [address] Apr, [facility] [address] [id number] [address] [place] [address], [place] [address] Apr, Mood disorder 296.90 [facility] [address] [id number] [address] [place] [address], [place] [address] March, [facility] [address] [id number] [address] [place] [address], [place] [address] Feb, [facility] [address] [id number] [address] [place] [address], [place] [address] Feb, [facility] [address] [id number] [address] [place] [address], [place] [address] Jan, [facility] [address] [id number] [address] [place] [address], [place] [address] Jan, [facility] [address] [id number] [address] [place] [address], [place] [address] Jan, [facility] [address] [id number] [address] [place] [address], [place] [address] Jan, [facility] [address] [id number] [address] [place] [address], [place] [address] Jan, [facility] [address] [id number] [address] [place] [address], [place] [address] Jan, [facility] [address] [id number] [address] [place] [address], [place] [address] Jan, [facility] [address] [id number] [address] [place] [address], [place] [address] Jan, [facility] [address] [id number] [address] [place] [address], [place] [address] Dec, [facility] [address] [id number] [address] [place] [id number] Dec, [facility] [address] [id number] [address] [place] [address], [place] [address] Nov, [facility] [address] [id number] [address] [place] [address], [place] [address] Nov, [facility] [address] [id number] [address] [place] [address], [place] [address] Nov, [facility] [address] [id number] [address] [place] [address], [place] [address] Nov, [facility] [address] [id number] [address] [place] [address], [place] [address] Oct, [facility] [address] [id number] [address] [place] [address], [place] [address] Oct, [facility] [address] [id number] [address] [place] [address], [place] [address] Oct, [facility] [address] [id number] [address] [place] [address], [place] [address] Oct, [facility] [address] [id number] [address] [place] [address], [place] [address] Oct, [facility] [address] [id number] [address] [place] [address], [place] [address] Oct, [facility] [address] [id number] [address] [place] [address], [place] [address] Oct, [facility] [address] [id number] [address] [place] [address], [place] [address] Oct, [facility] [address] [id number] [address] [place] [address], [place] [address] Oct, [facility] [address] [id number] [address] [place] [address], [place] [address] Oct, [facility] [address] [id number] [address] [place] [address], [place] [address] Sep, [facility] [address] [id number] [address] [place] [address], [place] [address] Sep, [facility] [address] [id number] [address] [place] [address], [place] [address] Sep, [facility] [address] [id number] [address] [place] [address], [place] [address] Sep, [facility] [address] [id number] [address] [place] [address], [place] [address] Sep, [facility] [address] [id number] [address] [place] [address], [place] [address] Sep, [facility] [address] [id number] [address] [place] [address], [place] [address] Aug, [facility] [address] [id number] [address] [place] [address], [place] [address] Aug, [facility] [address] [id number] [address] [place] [address], [place] [address] Jul, [facility] [address] [id number] [address] [place] [address], [place] [address] Jul, [facility] [address] [id number] [address] [place] [address], [place] [address] Jun, [facility] [address] [id number] [address] [place] [address], [place] [address] Jun, [facility] [address] [id number] [address] [place] [address], [place] [address] May, [facility] [address] [id number] [address] [place] [address], [place] [address] May, [facility] [address] [id number] [address] [place] [address], [place] [address] Apr, [facility] [address] [id number] [address] [place] [address], [place] [address] Apr, [facility] [address] [id number] [address] [place] [address], [place] [address] Apr, [facility] [address] [id number] [address] [place] [address], [place] [address] Apr, [facility] [address] [id number] [address] [place] [address], [place] [address] March, [facility] [address] [id number] [address] [place] [address], [place] [address] March, [facility] [address] [id number] [address] [place] [address], [place] [address] Jan, [facility] [address] [id number] [address] [place] [address], [place] [address] Jan, [facility] [address] [id number] [address] [place] [address], [place] [address] Jan, [facility] [address] [id number] [address] [place] [address], [place] [address] Jan, [facility] [address] [id number] [address] [place] [address], [place] [address] Jan, [facility] [address] [id number] [address] [place] [address], [place] [address] Jan, [facility] [address] [id number] [address] [place] [address], [place] [address] Dec, [facility] [address] [id number] [address] [place] [address], [place] [address] Dec, [facility] [address] [id number] [address] [place] [address], [place] [address] Oct, [facility] [address] [id number] [address] [place] [address], [place] [address] Oct, [facility] [address] [id number] [address] [place] [address], [place] [address] Oct, [facility] [address] [id number] [address] [place] [address], [place] [address] Oct, [facility] [address] [id number] [address] [place] [address] Jul, [facility] [address] [id number] [address] [place] [address], [place] [address] Jul, [facility] [address] [id number] [address] [place] [address], [place] [address] Jul, [facility] [address] [id number] [address] [place] [address], [place] [address] Jun, [facility] [address] [id number] [address] [place] [address], [place] [address] Jun, [facility] [address] [id number] [address] [place] [address], [place] [address] May, [facility] [address] [id number] [address] [place] [address], [place] [address] May, [facility] [address] [id number] [address] [place] [address], [place] [address] March, [facility] [address] [id number] [address] [place] [address], [place] [address] March, [facility] [address] [id number] [address] [place] [address], [place] [address] Feb, [facility] [address] [id number] [address] [place] [address], [place] [address] Feb, [facility] [address] [id number] [address] [place] [address], [place] [address] Jan, [facility] [address] [id number] [address] [place] [address], [place] [address] Dec, [facility] [address] [id number] [address] [place] [address], [place] [address] Dec, [facility] [address] [id number] [address] [place] [address], [place] [address] Dec, [facility] [address] [id number] [address] [place] [address] Dec, [facility] [address] [id number] [address] [place] [address], [place] [address] Dec, [facility] [address] [id number] [address] [place] [address], [place] [address] Nov, [facility] [address] [id number] [address] [place] [address], [place] [address] Oct, [facility] [address] [id number] [address] [place] [address], [place] [address] Oct, [facility] [address] [id number] [address] [place] [address], [place] [address] Aug, [facility] [address] [id number] [address] [place] [address], [place] [address] Aug, [facility] [address] [id number] [address] [place] [address], [place] [address] Aug, [facility] [address] [id number] [address] [place] [address], [place] [address] Aug, [facility] [address] [id number] [address] [place] [address], [place] [address] Aug, [facility] [address] [id number] [address] [place] [address], [place] [address] Jul, [facility] [address] [id number] [address] [place] [address], [place] [address] Jul, [facility] [address] [id number] [address] [place] [address], [place] [address] Jun, [facility] [address] [id number] [address] [place] [address], [place] [address] Jun, [facility] [address] [id number] [address] [place] [address], [place] [address] May, [facility] [address] [id number] [address] [place] [address], [place] [address] May, [facility] [address] [id number] [address] [place] [address] May, [facility] [address] [facility] [id number] [address] [place] [address] Apr, [facility] [address] [id number] [address] [place] [address] Apr, [facility] [address] [facility] [id number] [address] [place] [address] March, [facility] [address] [facility] [id number] [address] [place] [address] March, [facility] [address] [facility] [id number] [address] [place] [address] Feb, [facility] [address] [facility] [id number] [address] [place] [address] Feb, [facility] [address] [facility] [id number] [address] [place] [address] Feb, [facility] [address] [facility] [id number] [address] [place] [address] Feb, IMMUNIZATIONS No Known Immunizations SOCIAL HISTORY [...]
--- OUTSIDE RECORDS SUMMARY | 2020-06-17 08:48 | XMS REPORT ---
Author Author Barrie BUSTILLO Organization [facility] Address [address] [place] [address] Care Team Providers Care [employer] Operator Name Role Phone BARRIE BUSTILLO Unavailable PROBLEMS Type Condition ICD9-CM Code OWR18-HJ Code Onset Dates Condition S tatus SNOMED Code Problem Essential hypertension I10 Active 36258861 Problem Urinary hesitancy R39.11 Active 59 66543 Problem Obstructive sleep apnea G47.33 Active 57083095 Problem Controlled type 2 diabetes m ellitus without complication, without long- term current use of insulin E11.9 Active 095710899 Problem Primary insomnia F51.01 Active 397 2004 Problem 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 Acti ve 38436804 Problem Diabetes type 2, controlled E11.9 Ac tive 59141463 Problem 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.1 Active 211350261 Problem Acute superficial venous thrombosis of left lower extremit y I82.812 Active [id number] Problem Hesitancy of micturition R39.11 Activ e 5196402 Problem Benign prostatic hyperplasia with lower urinary tract symptoms N40.1 Active [id number] ALLERGIES No Information ENCOUNTERS Encounter Location Date Diagnosis [facility] [address] [facility] [id number] [address] [place] [phone] Jul, [facility] [address] [facility] [id number] [address] [place] [phone] Jul, [facility] [address] [facility] [id number] [address] [place] [phone] Jul, [facility] [address] [facility] [id number] [address] [place] [phone] Jun, [facility] [address] [facility] [id number] [address] [place] [phone] Jun, [facility] [address] [id number] [address] [place] [phone] Jun, Callus of foot L84 [facility] [address] [id number] [address] [place] [phone] Jun, [facility] [address] [id number] [address] [place] [address] Apr, Exercise counseling Z71.82 [place] [address] [id number] [address] [place] [phone] March, Moderate episode of recurren t major depressive disorder F33.1 [place] [address] [id number] [address] [place] [phone] March, Moderate episode of recurren t major depressive disorder F33.1 [place] [address] [id number] [address] [place] [phone] March, Exercise counseling Z71.82 [place] [address] [id number] [address] [place] [address] March, [place] [address] [id number] [address] [place] [phone] March, Exercise counseling Z71.82 [place] [address] [facility] [id number] [address] [place] [address] March, Right otitis media with effu yousuf H65.91 ; 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 and Diabetes type 2, controlled E11.9 [place] [address] [id number] [address] [place] [address] March, Moderate episode of recurren t major depressive disorder F33.1 [place] [address] [id number] [address] [place] [address] March, Exercise counseling Z71.82 [place] [address] [facility] [id number] [address] [place] [address] March, Exercise counseling Z71.82 [place] [address] [facility] [id number] [address] [place] [address] March, Callus of foot L84 [facility] [address] [facility] [id number] [address] [place] [phone] Feb, Moderate episode of recurren t major depressive disorder F33.1 [facility] [address] [facility] [id number] [address] [place] [phone] Feb, [facility] [address] [facility] [id number] [address] [place] [address] Feb, Moderate episode of recurren t major depressive disorder F33.1 [facility] [address] [facility] [id number] [address] [place] [phone] Feb, Diabetes type 2, controlled E11.9 and Essential hypertension I10 [facility] [address] [facility] [id number] [address] [place] [phone] Jan, [place] [address] [place] [id number] [address] [place] [phone] Jan, Callus of foot L84 [facility] [address] [facility] [id number] [address] [place] [address] Jan, Moderate episode of recurren t major depressive disorder F33.1 [facility] [address] [facility] [id number] [address] [place] [phone] Jan, Moderate episode of recurren t major depressive disorder F33.1 [place] [address] [facility] [id number] [address] [place] [phone] Dec, Moderate episode of recurren t major depressive disorder F33.1 [facility] [address] [facility] [id number] [address] [place] [address] Dec, Candidiasis of the esophagus B37.81 [facility] [address] [facility] [id number] [address] [place] [phone] Dec, [facility] [address] [facility] [id number] [address] [place] [phone] Dec, Fecal occult blood test posi tive R19.5 and Anemia, unspecified type D64.9 [facility] [address] [facility] [id number] [address] [place] [address] Nov, Stool color black K92.1 [facility] [address] [facility] [id number] [address] [place] [phone] Nov, Stool color black K92.1 [place] [address] [facility] [id number] [address] [place] [address] Nov, Stool color black K92.1 [place] [address] [facility] [id number] [address] [place] [phone] Nov, [place] [address] [facility] [id number] [address] [place] [phone] Nov, Moderate episode of recurren t major depressive disorder F33.1 [place] [address] [facility] [id number] [address] [place] [phone] Oct, Moderate episode of recurren t major depressive disorder F33.1 [place] [address] [facility] [id number] [address] [place] [phone] Oct, Callus of foot L84 and Contr olled type 2 diabetes mellitus without complication, without long-term current use of insulin E11.9 [place] [address] [facility] [id number] [address] [place] [phone] Oct, Moderate episode of recurren t major depressive disorder F33.1 [place] [address] [facility] [id number] [address] [place] [phone] Aug, Mood disorder F39 [place] [address] [facility] [id number] [address] [place] [phone] 05 Aug, 2018 Encounter for immunization Z 23 [place] [address] [facility] [id number] [address] [place] [phone] Jul, Moderate episode of recurren t major depressive disorder F33.1 [place] [address] [facility] [id number] [address] [place] [address] Jul, Moderate episode of recurren t major depressive disorder F33.1 [facility] [address] [id number] [address] [place] [address] May, [facility] [address] [id number] [address] [place] [phone] May, Moderate episode of recurren t major depressive disorder F33.1 [facility] [address] [id number] [address] [place] [phone] May, Moderate episode of recurren t major depressive disorder F33.1 [facility] [address] [id number] [address] [place] [phone] Apr, Benign prostatic hyperplasia with lower urinary tract symptoms N40.1 and Hesitancy of micturition R39.11 [place] [address] [facility] [id number] [address] [place] [address] Apr, Moderate episode of recurren t major depressive disorder F33.1 [place] [address] [id number] [address] [place] [address] Apr, Unspecified mood [affective] disorder F39 and Primary insomnia F51.01 [place] [address] [facility] [id number] [address] [place] [address] Apr, Primary insomnia F51.01 [place] [address] [facility] [id number] [address] [place] [address] March, Foot callus L84 [facility] [address] [facility] [id number] [address] [place] [address] Feb, Medicare annual wellness vis it, initial Z00.00 [facility] [address] [id number] [address] [place] [address] Feb, Acute superficial venous thr ombosis of left lower extremity I82.812 [facility] [address] [id number] [address] [place] [address] Feb, [facility] [address] [id number] [address] [place] [address] Feb, [facility] [address] [id number] [address] [place] [phone] Feb, Acute superficial venous thr ombosis of left lower extremity I82.812 [facility] [address] [id number] [address] [place] [phone] Feb, [facility] [address] [facility] [id number] [address] [place] [address] Feb, Other specified soft tissue disorders M79.89 and Pain in left leg M79.605 [facility] [address] [facility] [id number] [address] [place] [phone] Jan, Obstructive sleep apnea G47. 33 [facility] [address] [facility] [id number] [address] [place] [phone] Dec, Obstructive sleep apnea G47. 33 and Mood disorder F39 [facility] [address] [facility] [id number] [address] [place] [phone] Dec, [facility] [address] [facility] [id number] [address] [place] [phone] Dec, [facility] [address] [facility] [id number] [address] [place] [phone] Nov, Diabetes type 2, controlled E11.9 [facility] [address] [facility] [id number] [address] [place] [phone] Nov, Encounter for immunization Z 23 [facility] [address] [facility] [id number] [address] [place] [address] Nov, Primary insomnia F51.01 [place] [address] [facility] [id number] [address] [place] [phone] 07 Oct, 2017 Medicare annual wellness vis it, subsequent Z00.00 and Mood disorder F39 [facility] [address] [facility] [id number] [address] [place] [phone] Sep, Mood disorder F39 [place] [address] [facility] [address] [facility] [id number] [address] [place] [address] Aug, Primary insomnia F51.01 and Urinary hesitancy R39.11 [facility] [address] [facility] [id number] [address] [place] [phone] Aug, Primary insomnia F51.01 [facility] [address] [facility] [id number] [address] [place] [phone] Jul, Diabetes type 2, controlled E11.9 ; Primary insomnia F51.01 and Mood disorder F39 [facility] [address] [id number] [id number] Jun, Mood disorder F39 [facility] [address] [id number] [place] [id number] Jun, [facility] [address] [facility] [id number] [address] [place] [phone] May, Nightmares F51.5 [facility] [address] [facility] [id number] [address] [place] [phone] May, Cognitive complaints R41.9 ; Unspecified mood [affective] disorder F39 and Primary insomnia F51.01 [facility] [address] [facility] [id number] [address] [place] [phone] Apr, Mood disorder F39 and Primar y insomnia F51.01 [facility] [address] [facility] [id number] [address] [place] [phone] Apr, Cognitive complaints R41.9 a nd Unspecified mood [affective] disorder F39 [facility] [address] [facility] [id number] [address] [place] [phone] Apr, Cognitive complaints R41.9 a nd Unspecified mood [affective] disorder F39 [facility] [address] [facility] [id number] [address] [place] [phone] March, [facility] [address] [facility] [id number] [address] [place] [address] March, Diabetes type 2, controlled E11.9 and Essential hypertension I10 [facility] [address] [id number] [address] [place] [address] March, Primary insomnia F51.01 ; Di abetes type 2, controlled E11.9 and Pain in right shoulder M25.511 [facility] [address] [id number] [address] [place] [address] March, Cognitive complaints R41.9 a nd Unspecified mood [affective] disorder F39 [facility] [address] [id number] [address] [place] [phone] Feb, Other specified mental disor ders due to known physiological condition F06.8 [facility] [address] [id number] [address] [place] [phone] Jan, [facility] [address] [facility] [id number] [address] [place] [phone] Jan, [facility] [address] [facility] [id number] [address] [place] [phone] Dec, Diabetes type 2, controlled E11.9 ; Hypertension, benign I10 and Mood disorder F39 [facility] [address] [id number] [address] [place] [address] 08 Dec, 2016 Medicare annual wellness vis it, initial Z00.00 [place] [address] [facility] [id number] [address] [place] [phone] Nov, Medicare welcome exam Z00.00 ; Encounter for immunization Z23 ; Medicare annual wellness visit, initial Z00.00 and Medicare annual wellness visit, subsequent Z00.00 [facility] [address] [id number] [address] [place] [phone] Oct, [facility] [address] [facility] [id number] [address] [place] [phone] Sep, [facility] [address] [facility] [id number] [address] [place] [phone] Aug, Encounter for immunization Z 23 and Callus L84 [facility] [address] [id number] [address] [place] [phone] 07 Aug, 2016 [facility] [address] [id number] [address] [place] [phone] Jul, Diabetes type 2, controlled E11.9 [facility] [address] [id number] [address] [place] [phone] Jul, Diabetes type 2, controlled E11.9 [facility] [address] [id number] [address] [place] [phone] Jun, [facility] [address] [id number] [address] [place] [phone] Jun, Hypertension, benign I10 ; M ood disorder F39 and Diabetes type 2, controlled E11.9 [facility] [address] [id number] [address] [place] [phone] Jun, Mood disorder F39 [facility] [address] [id number] [address] [place] [phone] May, [facility] [address] [id number] [address] [place] [phone] May, Mood disorder F39 [facility] [address] [id number] [address] [place] [phone] May, Mood disorder F39 [facility] [address] [facility] [id number] [address] [place] [phone] 16 Apr, 2016 Controlled type 2 diabetes m ellitus without complication, without long-term current use of insulin E11.9 ; Essential hypertension I10 and Pain in right shoulder M25.511 [facility] [address] [id number] [address] [place] [phone] 08 Apr, 2016 Mood disorder F39 [facility] [address] [facility] [id number] [address] [place] [phone] 07 Apr, 2016 Pre-op evaluation Z01.818 [facility] [address] [facility] [id number] [address] [place] [address] March, Mood disorder F39 [facility] [address] [id number] [address] [place] [phone] Feb, [facility] [address] [id number] [address] [place] [address] Feb, Shoulder pain, right M25.511 [facility] [address] [id number] [address] [place] [address] Feb, Shoulder pain, right M25.511 [facility] [address] [id number] [address] [place] [address] Feb, Shoulder pain, right M25.511 [facility] [address] [id number] [address] [place] [address] Feb, Shoulder pain, right M25.511 [facility] [address] [id number] [address] [place] [address] Jan, Shoulder pain, right M25.511 [facility] [address] [id number] [address] [place] [address] Jan, Shoulder pain, right M25.511 [facility] [address] [id number] [address] [place] [phone] Jan, [facility] [address] [id number] [address] [place] [phone] Jan, Diabetes type 2, controlled E11.9 [facility] [address] [id number] [address] [place] [address] Jan, Shoulder pain, right M25.511 ; Diabetes mellitus without mention of complication, type II or unspecified type, not stated as uncontrolled 250.00 and Diabetes type 2, controlled E11.9 [facility] [address] [id number] [address] [place] [address] Jan, [facility] [address] [id number] [address] [place] [address] Jan, [facility] [address] [phone] 10 Dec, 2015 [facility] [address] [address] Oct, Callus of foot L84 [place] [address] [address] Oct, Anxiety F41.9 ; Callus of fo ot L84 and Dysuria R30.0 [place] [address] [id number] Sep, Diabetes mellitus without me ntion of complication, type II or unspecified type, not stated as uncontrolled 250.00 [place] [address] [phone] Aug, Diabetes mellitus without me ntion of complication, type II or unspecified type, not stated as uncontrolled 250.00 [place] [address] [address] Jul, [facility] [address] [phone] Jul, [place] [address] [address] Jul, Diabetes mellitus without me ntion of complication, type II or unspecified type, not stated as uncontrolled 250.00 ; Essential hypertension, benign 401.1 and Anxiety state, unspecified 300.00 [facility] [address] [address] Jul, [facility] [address] [address] Jun, [facility] [address] [id number] Jun, [facility] [address] [phone] May, [facility] [address] [id number] [address] [place] [address], [place] [address] May, [facility] [address] [id number] [address] [place] [address], [place] [address] Apr, [facility] [address] [id number] [address] [place] [address], [place] [address] Apr, Mood disorder 296.90 [facility] [address] [id number] [address] [place] [address], [place] [address] March, [facility] [address] [id number] [address] [place] [address], [place] [address] Feb, [facility] [address] [id number] [address] [place] [address], [place] [address] Feb, [facility] [address] [id number] [address] [place] [address], [place] [address] Jan, [facility] [address] [id number] [address] [place] [address], [place] [address] Jan, [facility] [address] [id number] [address] [place] [address], [place] [address] Jan, [facility] [address] [id number] [address] [place] [address], [place] [address] Jan, [facility] [address] [id number] [address] [place] [address], [place] [address] Jan, [facility] [address] [id number] [address] [place] [address], [place] [address] Jan, [facility] [address] [id number] [address] [place] [address], [place] [address] Jan, [facility] [address] [id number] [address] [place] [address], [place] [address] Jan, [facility] [address] [id number] [address] [place] [address], [place] [id number] Dec, [facility] [address] [id number] [address] [place] [address] Dec, [facility] [address] [id number] [address] [place] [address], [place] [address] Nov, [facility] [address] [id number] [address] [place] [address], [place] [address] Nov, [facility] [address] [id number] [address] [place] [address], [place] [address] Nov, [facility] [address] [id number] [address] [place] [address], [place] [address] Nov, [facility] [address] [id number] [address] [place] [address], [place] [address] Oct, [facility] [address] [id number] [address] [place] [address], [place] [address] Oct, [facility] [address] [id number] [address] [place] [address], [place] [address] Oct, [facility] [address] [id number] [address] [place] [address], [place] [address] Oct, [facility] [address] [id number] [address] [place] [address], [place] [address] Oct, [facility] [address] [id number] [address] [place] [address], [place] [address] Oct, [facility] [address] [id number] [address] [place] [address], [place] [address] Oct, [facility] [address] [id number] [address] [place] [address], [place] [address] Oct, [facility] [address] [id number] [address] [place] [address], [place] [address] Oct, [facility] [address] [id number] [address] [place] [address], [place] [address] Oct, [facility] [address] [id number] [address] [place] [address], [place] [address] Sep, [facility] [address] [id number] [address] [place] [address], [place] [address] Sep, [facility] [address] [id number] [address] [place] [address], [place] [address] Sep, [facility] [address] [id number] [address] [place] [address], [place] [address] Sep, [facility] [address] [id number] [address] [place] [address], [place] [address] Sep, [facility] [address] [id number] [address] [place] [address], [place] [address] Sep, [facility] [address] [id number] [address] [place] [address], [place] [address] Aug, [facility] [address] [id number] [address] [place] [address], [place] [address] Aug, [facility] [address] [id number] [address] [place] [address], [place] [address] Jul, [facility] [address] [id number] [address] [place] [address], [place] [address] Jul, [facility] [address] [id number] [address] [place] [address], [place] [address] Jun, [facility] [address] [id number] [address] [place] [address], [place] [address] Jun, [facility] [address] [id number] [address] [place] [address], [place] [address] May, [facility] [address] [id number] [address] [place] [address], [place] [address] May, [facility] [address] [id number] [address] [place] [address], [place] [address] Apr, [facility] [address] [id number] [address] [place] [address], [place] [address] Apr, [facility] [address] [id number] [address] [place] [address], [place] [address] Apr, [facility] [address] [id number] [address] [place] [address], [place] [address] Apr, [facility] [address] [id number] [address] [place] [address], [place] [address] March, [facility] [address] [id number] [address] [place] [address], [place] [address] March, [facility] [address] [id number] [address] [place] [address], [place] [address] Jan, [facility] [address] [id number] [address] [place] [address], [place] [address] Jan, [facility] [address] [id number] [address] [place] [address], [place] [address] Jan, [facility] [address] [id number] [address] [place] [address], [place] [address] Jan, [facility] [address] [id number] [address] [place] [address], [place] [address] Jan, [facility] [address] [id number] [address] [place] [address], [place] [address] Jan, [facility] [address] [id number] [address] [place] [address], [place] [address] Dec, [facility] [address] [id number] [address] [place] [address], [place] [address] Dec, [facility] [address] [id number] [address] [place] [address], [place] [address] Oct, [facility] [address] [id number] [address] [place] [address], [place] [address] Oct, [facility] [address] [id number] [address] [place] [address], [place] [address] Oct, [facility] [address] [id number] [address] [place] [address], [place] [address] Oct, [facility] [address] [id number] [address] [place] [address] Jul, [facility] [address] [id number] [address] [place] [address], [place] [address] Jul, [facility] [address] [id number] [address] [place] [address], [place] [address] Jul, [facility] [address] [id number] [address] [place] [address], [place] [address] Jun, [facility] [address] [id number] [address] [place] [address], [place] [address] Jun, [facility] [address] [id number] [address] [place] [address], [place] [address] May, [facility] [address] [id number] [address] [place] [address], [place] [address] May, [facility] [address] [id number] [address] [place] [address], [place] [address] March, [facility] [address] [id number] [address] [place] [address], [place] [address] March, [facility] [address] [id number] [address] [place] [address], [place] [address] Feb, [facility] [address] [id number] [address] [place] [address], [place] [address] Feb, [facility] [address] [id number] [address] [place] [address], [place] [address] Jan, [facility] [address] [id number] [address] [place] [address], [place] [address] Dec, [facility] [address] [id number] [address] [place] [address], [place] [address] Dec, [facility] [address] [id number] [address] [place] [address], [place] [address] Dec, [facility] [address] [id number] [address] [place] [address] Dec, [facility] [address] [id number] [address] [place] [address], [place] [address] Dec, [facility] [address] [id number] [address] [place] [address], [place] [address] Nov, [facility] [address] [id number] [address] [place] [address], [place] [address] Oct, [facility] [address] [id number] [address] [place] [address], [place] [address] Oct, [facility] [address] [id number] [address] [place] [address], [place] [address] Aug, [facility] [address] [id number] [address] [place] [address], [place] [address] Aug, [facility] [address] [id number] [address] [place] [address], [place] [address] Aug, [facility] [address] [id number] [address] [place] [address], [place] [address] Aug, [facility] [address] [id number] [address] [place] [address], [place] [address] Aug, [facility] [address] [id number] [address] [place] [address], [place] [address] Jul, [facility] [address] [id number] [address] [place] [address], [place] [address] Jul, [facility] [address] [id number] [address] [place] [address], [place] [address] Jun, [facility] [address] [id number] [address] [place] [address], [place] [address] Jun, [facility] [address] [id number] [address] [place] [address], [place] [address] May, [facility] [address] [id number] [address] [place] [address], [place] [address] May, [facility] [address] [id number] [address] [place] [address] May, [facility] [address] [facility] [address] [facility] [id number] [address] [place] [address] Apr, [facility] [address] [id number] [address] [place] [address] Apr, [facility] [address] [facility] [id number] [address] [place] [address] March, [facility] [address] [facility] [id number] [address] [place] [phone] March, [facility] [address] [facility] [id number] [address] [place] [phone] Feb, [facility] [address] [facility] [id number] [address] [place] [phone] Feb, [facility] [address] [facility] [id number] [address] [place] [phone] Feb, [facility] [address] [facility] [id number] [address] [place] [id number] Feb, IMMUNIZATIONS No Known Immunizations SOCIAL HISTORY [...]
--- OUTSIDE RECORDS SUMMARY | 2020-06-17 08:49 | XMS REPORT ---
Author Author Barrie BUSTILLO Organization [facility] Address [address] [place] [address] Care Team Providers Care Refrigerated Cargo Clerk Name Role Phone BARRIE BUSTILLO Unavailable PROBLEMS Type Condition ICD9-CM Code DTU75-ES Code Onset Dates Condition S tatus SNOMED Code Problem Essential hypertension I10 Active 78846301 Problem Urinary hesitancy R39.11 Active 59 19521 Problem Obstructive sleep apnea G47.33 Active 53931418 Problem Controlled type 2 diabetes m ellitus without complication, without long- term current use of insulin E11.9 Active 302502498 Problem Primary insomnia F51.01 Active 397 2004 Problem 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 [id number] [address] [place] [phone] Apr, Exercise counseling Z71.82 [facility] [address] [facility] [id number] [address] [place] [id number] March, Moderate episode of recurren t major depressive disorder F33.1 [facility] [address] [facility] [id number] [address] [place] [phone] March, Moderate episode of recurren t major depressive disorder F33.1 [facility] [address] [facility] [id number] [address] [place] [id number] March, Exercise counseling Z71.82 [facility] [address] [id number] [address] [place] [phone] March, [facility] [address] [id number] [address] [place] [phone] March, Exercise counseling Z71.82 [facility] [address] 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 [id number] [address] [place] [id number] March, Exercise counseling Z71.82 [place] [address] [facility] [id number] [address] [place] [phone] March, Exercise counseling Z71.82 [place] [address] [id number] [address] [place] [id number] March, Callus of foot L84 [place] [address] [facility] [id number] [address] [place] [id number] Feb, Moderate episode of recurren t major depressive disorder F33.1 [place] [address] [id number] [address] [place] [phone] Feb, [facility] [address] [facility] [id number] [address] [place] [phone] Feb, Moderate episode of recurren t major depressive disorder F33.1 [facility] [address] [id number] [address] [place] [id number] Feb, Diabetes type 2, controlled E11.9 and Essential hypertension I10 [facility] [address] [id number] [address] [place] [id number] Jan, [facility] [address] [id number] [address] [place] [id number] Jan, Callus of foot L84 [facility] [address] [facility] [id number] [address] [place] [id number] Jan, Moderate episode of recurren t major depressive disorder F33.1 [facility] [address] [facility] [id number] [address] [place] [id number] 05 Jan, 2019 Moderate episode of recurren t major depressive disorder F33.1 [facility] [address] [facility] [id number] [address] [place] [id number] Dec, Moderate episode of recurren t major depressive disorder F33.1 [place] [address] [facility] [id number] [address] [place] [id number] 11 Dec, 2018 Candidiasis of the esophagus B37.81 [place] [address] [address] [place] [id number] [address] [place] [phone] Dec, [facility] [address] [facility] [id number] [address] [place] [id number] Dec, Fecal occult blood test posi tive R19.5 and Anemia, unspecified type D64.9 [place] [address] [address] [place] [id number] [address] [place] [id number] Nov, Stool color black K92.1 [place] [address] [address] [place] [id number] [address] [place] [phone] Nov, Stool color black K92.1 [place] [address] [facility] [id number] [address] [place] [phone] Nov, Stool color black K92.1 [place] [address] [facility] [id number] [address] [place] [id number] Nov, [place] [address] [facility] [id number] [address] [place] [id number] Nov, Moderate episode of recurren t major depressive disorder F33.1 [place] [address] [facility] [id number] [address] [place] [phone] Oct, Moderate episode of recurren t major depressive disorder F33.1 [place] [address] [id number] [address] [place] [id number] 18 Oct, 2018 Callus of foot L84 and Contr olled type 2 diabetes mellitus without complication, without long-term current use of insulin E11.9 [place] [address] [id number] [address] [place] [id number] 10 Oct, 2018 Moderate episode of recurren t major depressive disorder F33.1 [place] [address] [id number] [address] [place] [phone] Aug, Mood disorder F39 [place] [address] [id number] [address] [place] [id number] 05 Aug, 2018 Encounter for immunization Z 23 [place] [address] [id number] [address] [place] [phone] Jul, Moderate episode of recurren t major depressive disorder F33.1 [place] [address] [id number] [address] [place] [id number] Jul, Moderate episode of recurren t major depressive disorder F33.1 [place] [address] [id number] [address] [place] [id number] May, [place] [address] [id number] [address] [place] [id number] May, Moderate episode of recurren t major depressive disorder F33.1 [place] [address] [id number] [address] [place] [id number] May, Moderate episode of recurren t major depressive disorder F33.1 [place] [address] [id number] [address] [place] [id number] Apr, Benign prostatic hyperplasia with lower urinary tract symptoms N40.1 and Hesitancy of micturition R39.11 [place] [address] [id number] [address] [place] [id number] Apr, Moderate episode of recurren t major depressive disorder F33.1 [facility] [address] [id number] [address] [place] [id number] Apr, Unspecified mood [affective] disorder F39 and Primary insomnia F51.01 [facility] [address] [id number] [address] [place] [id number] Apr, Primary insomnia F51.01 [facility] [address] [id number] [address] [place] [id number] March, Foot callus L84 [facility] [address] [facility] [id number] [address] [place] [phone] Feb, Medicare annual wellness vis it, initial Z00.00 [facility] [address] [facility] [id number] [address] [place] [id number] Feb, Acute superficial venous thr ombosis of left lower extremity I82.812 [facility] [address] [facility] [id number] [address] [place] [id number] Feb, [facility] [address] [facility] [id number] [address] [place] [id number] Feb, [facility] [address] [facility] [id number] [address] [place] [id number] Feb, Acute superficial venous thr ombosis of left lower extremity I82.812 [facility] [address] [facility] [id number] [address] [place] [phone] Feb, [facility] [address] [id number] [address] [place] [id number] Feb, Other specified soft tissue disorders M79.89 and Pain in left leg M79.605 [facility] [address] [facility] [id number] [address] [place] [id number] Jan, Obstructive sleep apnea G47. 33 [facility] [address] [facility] [id number] [address] [place] [id number] Dec, Obstructive sleep apnea G47. 33 and Mood disorder F39 [facility] [address] [facility] [id number] [address] [place] [phone] Dec, [facility] [address] [facility] [id number] [address] [place] [id number] Dec, [facility] [address] [facility] [id number] [address] [place] [id number] Nov, Diabetes type 2, controlled E11.9 [facility] [address] [facility] [id number] [address] [place] [phone] Nov, Encounter for immunization Z 23 [facility] [address] [facility] [id number] [address] [place] [phone] Nov, Primary insomnia F51.01 [facility] [address] [facility] [id number] [address] [place] [id number] 07 Oct, 2017 Medicare annual wellness vis it, subsequent Z00.00 and Mood disorder F39 [facility] [address] [facility] [id number] [address] [place] [id number] Sep, Mood disorder F39 [facility] [address] [facility] [id number] [address] [place] [id number] Aug, Primary insomnia F51.01 and Urinary hesitancy R39.11 [facility] [address] [facility] [id number] [address] [place] [id number] Aug, Primary insomnia F51.01 [facility] [address] [facility] [id number] [address] [place] [id number] Jul, Diabetes type 2, controlled E11.9 ; Primary insomnia F51.01 and Mood disorder F39 [facility] [address] [id number] [id number] Jun, Mood disorder F39 [facility] [address] [id number] Monika ALCOCER S [id number] Jun, [facility] [address] [facility] [id number] [address] [place] [phone] May, Nightmares F51.5 [facility] [address] [id number] [address] [place] [phone] May, Cognitive complaints R41.9 ; Unspecified mood [affective] disorder F39 and Primary insomnia F51.01 [facility] [address] [id number] [address] [place] [phone] Apr, Mood disorder F39 and Primar y insomnia F51.01 [facility] [address] [id number] [address] [place] [phone] Apr, Cognitive complaints R41.9 a nd Unspecified mood [affective] disorder F39 [facility] [address] [id number] [address] [place] [id number] Apr, Cognitive complaints R41.9 a nd Unspecified mood [affective] disorder F39 [facility] [address] [id number] [address] [place] [id number] March, [facility] [address] [id number] [address] [place] [phone] March, Diabetes type 2, controlled E11.9 and Essential hypertension I10 [facility] [address] [id number] [address] [place] [id number] March, Primary insomnia F51.01 ; Di abetes type 2, controlled E11.9 and Pain in right shoulder M25.511 [facility] [address] [id number] [address] [place] [id number] March, Cognitive complaints R41.9 a nd Unspecified mood [affective] disorder F39 [facility] [address] [id number] [address] [place] [phone] Feb, Other specified mental disor ders due to known physiological condition F06.8 [facility] [address] [id number] [address] [place] [phone] Jan, [facility] [address] [id number] [address] [place] [phone] Jan, [facility] [address] [id number] [address] [place] [id number] Dec, Diabetes type 2, controlled E11.9 ; Hypertension, benign I10 and Mood disorder F39 [facility] [address] [facility] [id number] [address] [place] [id number] 08 Dec, 2016 Medicare annual wellness vis it, initial Z00.00 [facility] [address] [facility] [id number] [address] [place] [id number] 05 Nov, 2016 Medicare welcome exam Z00.00 ; Encounter for immunization Z23 ; Medicare annual wellness visit, initial Z00.00 and Medicare annual wellness visit, subsequent Z00.00 [place] [address] [facility] [id number] [address] [place] [id number] Oct, [facility] [address] [facility] [id number] [address] [place] [phone] Sep, [facility] [address] [place] [id number] [address] [place] [id number] Aug, Encounter for immunization Z 23 and Callus L84 [place] [address] [facility] [id number] [address] [place] [phone] Aug, [facility] [address] [facility] [id number] [address] [place] [id number] Jul, Diabetes type 2, controlled E11.9 [facility] [address] [facility] [id number] [address] [place] [id number] Jul, Diabetes type 2, controlled E11.9 [facility] [address] [facility] [id number] [address] [place] [phone] Jun, [facility] [address] [facility] [id number] [address] [place] [id number] Jun, Hypertension, benign I10 ; M ood disorder F39 and Diabetes type 2, controlled E11.9 [facility] [address] [facility] [id number] [address] [place] [id number] Jun, Mood disorder F39 [facility] [address] [id number] [address] [place] [phone] May, [facility] [address] [id number] [address] [place] [phone] May, Mood disorder F39 [facility] [address] [facility] [id number] [address] [place] [phone] May, Mood disorder F39 [facility] [address] [id number] [address] [place] [id number] Apr, Controlled type 2 diabetes m ellitus without complication, without long-term current use of insulin E11.9 ; Essential hypertension I10 and Pain in right shoulder M25.511 [facility] [address] [id number] [address] [place] [id number] Apr, Mood disorder F39 [facility] [address] [id number] [address] [place] [id number] Apr, Pre-op evaluation Z01.818 [facility] [address] [id number] [address] [place] [id number] March, Mood disorder F39 [facility] [address] [id number] [address] [place] [id number] Feb, [facility] [address] [id number] [address] [place] [id number] Feb, Shoulder pain, right M25.511 [facility] [address] [id number] [address] [place] [id number] Feb, Shoulder pain, right M25.511 [facility] [address] [id number] [address] [place] [id number] Feb, Shoulder pain, right M25.511 [facility] [address] [id number] [address] [place] [id number] Feb, Shoulder pain, right M25.511 [facility] [address] [id number] [address] [place] [id number] 30 Jan, 2016 Shoulder pain, right M25.511 [place] [address] [facility] [id number] [address] [place] [id number] Jan, Shoulder pain, right M25.511 [place] [address] [facility] [id number] [address] [place] [id number] 16 Jan, 2016 [place] [address] [place] [id number] [address] [place] [id number] 14 Jan, 2016 Diabetes type 2, controlled E11.9 [place] [address] [facility] [id number] [address] [place] [id number] Jan, Shoulder pain, right M25.511 ; Diabetes mellitus without mention of complication, type II or unspecified type, not stated as uncontrolled 250.00 and Diabetes type 2, controlled E11.9 [place] [address] [place] [id number] [address] [place] [id number] Jan, [place] [address] [place] [id number] [address] [place] [id number] Jan, [place] [address] [facility] [id number] [address] [place] [id number] Dec, [place] [address] [place] [id number] [address] [place] [id number] Oct, Callus of foot L84 [place] [address] [id number] Oct, Anxiety F41.9 ; Callus of fo ot L84 and Dysuria R30.0 [place] [address] [facility] [id number] [address] [place] [id number] Sep, Diabetes mellitus without me ntion of complication, type II or unspecified type, not stated as uncontrolled 250.00 [place] [address] [place] [id number] [address] [place] [id number] Aug, Diabetes mellitus without me ntion of complication, type II or unspecified type, not stated as uncontrolled 250.00 [place] [address] [id number] [address] [place] [id number] 22 Jul, 2015 [facility] [address] [id number] [address] [place] [phone] Jul, [facility] [address] [id number] [address] [place] [id number] Jul, Diabetes mellitus without me ntion of complication, type II or unspecified type, not stated as uncontrolled 250.00 ; Essential hypertension, benign 401.1 and Anxiety state, unspecified 300.00 [facility] [address] [id number] [address] [place] [id number] Jul, [facility] [address] [id number] [address] [place] [phone] Jun, [facility] [address] [id number] [address] [place] [phone] Jun, [facility] [address] [id number] [address] [place] [phone] May, [facility] [address] [id number] [address] [place] [phone] May, [facility] [address] [id number] [address] [place] [id number] Apr, [facility] [address] [id number] [address] [place] [id number] Apr, Mood disorder 296.90 [facility] [address] [id number] [address] [place] [id number] March, [facility] [address] [id number] [address] [place] [id number] Feb, [facility] [address] [id number] [address] [place] [id number] Feb, [facility] [address] [id number] [address] [place] [id number] Jan, [facility] [address] [id number] [address] [place] [address], [place] [id number] Jan, [facility] [address] [id number] [address] [place] [address], [place] [id number] Jan, [facility] [address] [id number] [address] [place] [address], [place] [id number] Jan, [facility] [address] [id number] [address] [place] [address], [place] [id number] Jan, [facility] [address] [id number] [address] [place] [address], [place] [id number] Jan, [facility] [address] [id number] [address] [place] [address], [place] [id number] Jan, [facility] [address] [id number] [address] [place] [address], [place] [id number] Jan, [facility] [address] [id number] [address] [place] [address], [place] [id number] Dec, [facility] [address] [id number] [address] [place] [address], [place] [id number] Dec, [facility] [address] [id number] [address] [place] [address], [place] [id number] Nov, [facility] [address] [id number] [address] [place] [address], [place] [id number] Nov, [facility] [address] [id number] [address] [place] [address], [place] [id number] Nov, [facility] [address] [id number] [address] [place] [address], [place] [id number] Nov, [facility] [address] [id number] [address] [place] [address], [place] [id number] Oct, [facility] [address] [id number] [address] [place] [address], [place] [id number] Oct, [facility] [address] [id number] [address] [place] [address], [place] [address] Oct, [facility] [address] [id number] [address] [place] [address], [place] [address] Oct, [facility] [address] [id number] [address] [place] [address], [place] [address] Oct, [facility] [address] [id number] [address] [place] [address], [place] [address] Oct, [facility] [address] [id number] [address] [place] [address], [place] [address] Oct, [facility] [address] [id number] [address] [place] [address], [place] [address] 17 Oct, 2014 [facility] [address] [id number] [address] [place] [address], [place] [address] 15 Oct, 2014 [facility] [address] [id number] [address] [place] [address], [place] [address] Oct, [facility] [address] [id number] [address] [place] [address], [place] [address] Sep, [facility] [address] [id number] [address] [place] [address], [place] [address] 19 Sep, 2014 [facility] [address] [id number] [address] [place] [address], [place] [address] 18 Sep, 2014 [facility] [address] [id number] [address] [place] [address], [place] [address] 18 Sep, 2014 [facility] [address] [id number] [address] [place] [address], [place] [address] 18 Sep, 2014 [facility] [address] [id number] [address] [place] [address], [place] [address] 18 Sep, 2014 [facility] [address] [id number] [address] [place] [address], [place] [address] 16 Aug, 2014 [facility] [address] [id number] [address] [place] [address], [place] [address] 16 Aug, 2014 [facility] [address] [id number] [address] [place] [address] [place] [address] Jul, [facility] [address] [id number] [address] [place] [address], [place] [address] Jul, [facility] [address] [id number] [address] [place] [address], [place] [address] Jun, [facility] [address] [id number] [address] [place] [address], [place] [address] Jun, [facility] [address] [id number] [address] [place] [address], [place] [address] May, [facility] [address] [id number] [address] [place] [address], [place] [address] May, [facility] [address] [id number] [address] [place] [address], [place] [address] Apr, [facility] [address] [id number] [address] [place] [address], [place] [address] Apr, [facility] [address] [id number] [address] [place] [address], [place] [address] Apr, [facility] [address] [id number] [address] [place] [address], [place] [address] Apr, [facility] [address] [id number] [address] [place] [address], [place] [address] March, [facility] [address] [id number] [address] [place] [address], [place] [address] March, [facility] [address] [id number] [address] [place] [address], [place] [address] Jan, [facility] [address] [id number] [address] [place] [address], [place] [address] Jan, [facility] [address] [id number] [address] [place] [address], [place] [address] Jan, [facility] [address] [id number] [address] [place] [address], [place] [address] Jan, [facility] [address] [id number] [address] [place] [address], [place] [address] Jan, [facility] [address] [id number] [address] [place] [address], [place] [address] Jan, [facility] [address] [id number] [address] [place] [address], [place] [address] Dec, [facility] [address] [id number] [address] [place] [address], [place] [address] Dec, [facility] [address] [id number] [address] [place] [address], [place] [address] Oct, [facility] [address] [id number] [address] [place] [address], [place] [address] Oct, [facility] [address] [id number] [address] [place] [address], [place] [address] Oct, [facility] [address] [id number] [address] [place] [address], [place] [address] Oct, [facility] [address] [id number] [address] [place] [address], [place] [address] Jul, [facility] [address] [id number] [address] [place] [address], [place] [address] Jul, [facility] [address] [id number] [address] [place] [address], [place] [address] Jul, [facility] [address] [id number] [address] [place] [address], [place] [address] Jun, [facility] [address] [id number] [address] [place] [address], [place] [address] Jun, [facility] [address] [id number] [address] [place] [address], [place] [address] May, [facility] [address] [id number] [address] [place] [address], [place] [address] May, [facility] [address] [id number] [place] [address] March, [facility] [address] [id number] [address] [place] [address], [place] [address] March, [facility] [address] [id number] [address] [place] [id number] Feb, [facility] [address] [id number] [address] [place] [id number] Feb, [facility] [address] [id number] [address] [place] [id number] Jan, [facility] [address] [id number] [address] [place] [address], [place] [address] Dec, [facility] [address] [id number] [address] [place] [id number] Dec, [facility] [address] [id number] [address] [place] [id number] 15 Dec, 2012 [facility] [address] [id number] [address] [place] [id number] 14 Dec, 2012 [facility] [address] [id number] [address] [place] [id number] Dec, [facility] [address] [id number] [address] [place] [id number] Nov, [facility] [address] [id number] [address] [place] [id number] Oct, [facility] [address] [id number] [address] [place] [id number] Oct, [facility] [address] [id number] [address] [place] [id number] Aug, [facility] [address] [id number] [address] [place] [id number] Aug, [facility] [address] [id number] [address] [place] [id number] Aug, [facility] [address] [id number] [address] [place] [address], [place] [address] Aug, [facility] [address] [id number] [address] [place] [address], [place] [address] Aug, [facility] [address] [id number] [address] [place] [address], [place] [address] Jul, [facility] [address] [id number] [address] [place] [address], [place] [address] Jul, [facility] [address] [id number] [address] [place] [address], [place] [address] Jun, [facility] [address] [id number] [address] [place] [address], [place] [address] Jun, [facility] [address] [id number] [address] [place] [address], [place] [address] May, [facility] [address] [id number] [address] [place] [address], [place] [address] May, [facility] [address] [id number] [address] [place] [address], [place] [address] May, [facility] [address] [id number] [address] [place] [address], [place] [address] Apr, [facility] [address] [id number] [address] [place] [address], [place] [address] Apr, [facility] [address] [id number] [address] [place] [address], [place] [address] March, [facility] [address] [id number] [address] [place] [address], [place] [address] March, [facility] [address] [id number] [address] [place] [address], [place] [address] 18 Feb, 2012 [facility] [address] [id number] [address] [place] [address], [place] [address] 17 Feb, 2012 [facility] [address] [id number] [address] [place] [address] [address] Feb, [facility] [address] [facility] [id number] [address] [place] [address] Feb, IMMUNIZATIONS No Known Immunizations SOCIAL HISTORY [...]
--- OUTSIDE RECORDS SUMMARY | 2020-06-17 08:49 | XMS REPORT ---
Author Author Barrie BUSTILLO Organization [facility] Address [address] [place] [address] Care Team Providers Care Geologic Technician Name Role Phone BARRIE BUSTILLO Unavailable PROBLEMS Type Condition ICD9-CM Code ZSM94-PC Code Onset Dates Condition S tatus SNOMED Code Problem Essential hypertension I10 Active 09704896 Problem Urinary hesitancy R39.11 Active 59 11883 Problem Obstructive sleep apnea G47.33 Active 43726235 Problem Controlled type 2 diabetes m ellitus without complication, without long- term current use of insulin E11.9 Active 899567126 Problem Primary insomnia F51.01 Active 397 2004 Problem 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 Acti ve 47909607 Problem Diabetes type 2, controlled E11.9 Ac tive 17409476 Problem 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.1 Active 907245735 Problem Acute superficial venous thrombosis of left lower extremit y I82.812 Active 33018052630970245 Problem Hesitancy of micturition R39.11 Activ e 1797085 Problem Benign prostatic hyperplasia with lower urinary tract symptoms N40.1 Active 249709039 ALLERGIES No Information ENCOUNTERS Encounter Location Date Diagnosis [place] [address] [facility] [id number] [address] [place] [address] Apr, Exercise counseling Z71.82 [facility] [address] [facility] [id number] [address] [place] [address] March, Moderate episode of recurren t major depressive disorder F33.1 [facility] [address] [facility] [id number] [address] [place] [address] March, Moderate episode of recurren t major depressive disorder F33.1 [facility] [address] [facility] [id number] [address] [place] [address] March, Exercise counseling Z71.82 [facility] [address] [id number] [address] [place] [address] March, [facility] [address] [id number] [address] [place] [address] March, Exercise counseling Z71.82 [facility] [address] [facility] [id number] [address] [place] [address] March, Right otitis media with effu yousuf H65.91 ; 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 and Diabetes type 2, controlled E11.9 [facility] [address] [id number] [address] [place] [address] March, Moderate episode of recurren t major depressive disorder F33.1 [place] [address] [facility] [id number] [address] [place] [address] March, Exercise counseling Z71.82 [place] [address] [facility] [id number] [address] [place] [address] March, Exercise counseling Z71.82 [place] [address] [id number] [address] [place] [address] March, Callus of foot L84 [place] [address] [facility] [id number] [address] [place] [phone] Feb, Moderate episode of recurren t major depressive disorder F33.1 [place] [address] [id number] [address] [place] [address] Feb, [facility] [address] [facility] [id number] [address] [place] [phone] Feb, Moderate episode of recurren t major depressive disorder F33.1 [facility] [address] [id number] [address] [place] [address] Feb, Diabetes type 2, controlled E11.9 and Essential hypertension I10 [facility] [address] [id number] [address] [place] [phone] Jan, [facility] [address] [id number] [address] [place] [address] Jan, Callus of foot L84 [facility] [address] [facility] [id number] [address] [place] [address] Jan, Moderate episode of recurren t major depressive disorder F33.1 [facility] [address] [facility] [id number] [address] [place] [phone] 05 Jan, 2019 Moderate episode of recurren t major depressive disorder F33.1 [facility] [address] [facility] [id number] [address] [place] [phone] Dec, Moderate episode of recurren t major depressive disorder F33.1 [place] [address] [facility] [id number] [address] [place] [phone] 11 Dec, 2018 Candidiasis of the esophagus B37.81 [place] [address] [place] [id number] [address] [place] [phone] Dec, [facility] [address] [facility] [id number] [address] [place] [address] Dec, Fecal occult blood test posi tive R19.5 and Anemia, unspecified type D64.9 [place] [address] [place] [id number] [address] [place] [address] Nov, Stool color black K92.1 [place] [address] [place] [id number] [address] [place] [address] Nov, Stool color black K92.1 [place] [address] [facility] [id number] [address] [place] [phone] Nov, Stool color black K92.1 [place] [address] [facility] [id number] [address] [place] [address] Nov, [place] [address] [facility] [id number] [address] [place] [address] Nov, Moderate episode of recurren t major depressive disorder F33.1 [place] [address] [facility] [id number] [address] [place] [address] Oct, Moderate episode of recurren t major depressive disorder F33.1 [place] [address] [id number] [address] [place] [address] 18 Oct, 2018 Callus of foot L84 and Contr olled type 2 diabetes mellitus without complication, without long-term current use of insulin E11.9 [place] [address] [id number] [address] [place] [phone] 10 Oct, 2018 Moderate episode of recurren t major depressive disorder F33.1 [place] [address] [id number] [address] [place] [phone] Aug, Mood disorder F39 [place] [address] [id number] [address] [place] [phone] 05 Aug, 2018 Encounter for immunization Z 23 [place] [address] [id number] [address] [place] [phone] Jul, Moderate episode of recurren t major depressive disorder F33.1 [place] [address] [id number] [address] [place] [phone] Jul, Moderate episode of recurren t major depressive disorder F33.1 [place] [address] [id number] [address] [place] [address] May, [place] [address] [id number] [address] [place] [address] May, Moderate episode of recurren t major depressive disorder F33.1 [place] [address] [id number] [address] [place] [address] May, Moderate episode of recurren t major depressive disorder F33.1 [place] [address] [id number] [address] [place] [address] Apr, Benign prostatic hyperplasia with lower urinary tract symptoms N40.1 and Hesitancy of micturition R39.11 [place] [address] [id number] [address] [place] [address] Apr, Moderate episode of recurren t major depressive disorder F33.1 [facility] [address] [id number] [address] [place] [address] Apr, Unspecified mood [affective] disorder F39 and Primary insomnia F51.01 [facility] [address] [id number] [address] [place] [address] Apr, Primary insomnia F51.01 [facility] [address] [id number] [address] [place] [address] March, Foot callus L84 [facility] [address] [facility] [id number] [address] [place] [address] Feb, Medicare annual wellness vis it, initial Z00.00 [facility] [address] [facility] [id number] [address] [place] [address] Feb, Acute superficial venous thr ombosis of left lower extremity I82.812 [facility] [address] [facility] [id number] [address] [place] [address] Feb, [facility] [address] [facility] [id number] [address] [place] [phone] Feb, [facility] [address] [facility] [id number] [address] [place] [address] Feb, Acute superficial venous thr ombosis of left lower extremity I82.812 [facility] [address] [facility] [id number] [address] [place] [phone] Feb, [facility] [address] [id number] [address] [place] [address] Feb, Other specified soft tissue disorders M79.89 and Pain in left leg M79.605 [facility] [address] [facility] [id number] [address] [place] [address] Jan, Obstructive sleep apnea G47. 33 [facility] [address] [facility] [id number] [address] [place] [address] Dec, Obstructive sleep apnea G47. 33 and Mood disorder F39 [facility] [address] [facility] [id number] [address] [place] [address] Dec, [facility] [address] [facility] [id number] [address] [place] [phone] Dec, [facility] [address] [facility] [id number] [address] [place] [address] Nov, Diabetes type 2, controlled E11.9 [facility] [address] [facility] [id number] [address] [place] [address] Nov, Encounter for immunization Z 23 [facility] [address] [facility] [id number] [address] [place] [address] Nov, Primary insomnia F51.01 [facility] [address] [facility] [id number] [address] [place] [address] 07 Oct, 2017 Medicare annual wellness vis it, subsequent Z00.00 and Mood disorder F39 [facility] [address] [facility] [id number] [address] [place] [address] Sep, Mood disorder F39 [facility] [address] [facility] [id number] [address] [place] [address] Aug, Primary insomnia F51.01 and Urinary hesitancy R39.11 [facility] [address] [facility] [id number] [address] [place] [address] Aug, Primary insomnia F51.01 [facility] [address] [facility] [id number] [address] [place] [address] Jul, Diabetes type 2, controlled E11.9 ; Primary insomnia F51.01 and Mood disorder F39 [facility] [address] [id number] [id number] Jun, Mood disorder F39 [facility] [address] [id number] Monika ALCOCER S [id number] Jun, [facility] [address] [facility] [id number] [address] [place] [address] May, Nightmares F51.5 [facility] [address] [id number] [address] [place] [address] May, Cognitive complaints R41.9 ; Unspecified mood [affective] disorder F39 and Primary insomnia F51.01 [facility] [address] [id number] [address] [place] [address] Apr, Mood disorder F39 and Primar y insomnia F51.01 [facility] [address] [id number] [address] [place] [address] Apr, Cognitive complaints R41.9 a nd Unspecified mood [affective] disorder F39 [facility] [address] [id number] [address] [place] [address] Apr, Cognitive complaints R41.9 a nd Unspecified mood [affective] disorder F39 [facility] [address] [id number] [address] [place] [address] March, [facility] [address] [id number] [address] [place] [phone] March, Diabetes type 2, controlled E11.9 and Essential hypertension I10 [facility] [address] [id number] [address] [place] [address] March, Primary insomnia F51.01 ; Di abetes type 2, controlled E11.9 and Pain in right shoulder M25.511 [facility] [address] [id number] [address] [place] [address] March, Cognitive complaints R41.9 a nd Unspecified mood [affective] disorder F39 [facility] [address] [id number] [address] [place] [phone] Feb, Other specified mental disor ders due to known physiological condition F06.8 [facility] [address] [id number] [address] [place] [address] Jan, [facility] [address] [id number] [address] [place] [address] Jan, [facility] [address] [id number] [address] [place] [address] Dec, Diabetes type 2, controlled E11.9 ; Hypertension, benign I10 and Mood disorder F39 [facility] [address] [facility] [id number] [address] [place] [phone] 08 Dec, 2016 Medicare annual wellness vis it, initial Z00.00 [facility] [address] [facility] [id number] [address] [place] [phone] 05 Nov, 2016 Medicare welcome exam Z00.00 ; Encounter for immunization Z23 ; Medicare annual wellness visit, initial Z00.00 and Medicare annual wellness visit, subsequent Z00.00 [place] [address] [facility] [id number] [address] [place] [address] Oct, [facility] [address] [facility] [id number] [address] [place] [address] Sep, [facility] [address] [place] [id number] [address] [place] [phone] Aug, Encounter for immunization Z 23 and Callus L84 [place] [address] [facility] [id number] [address] [place] [phone] Aug, [facility] [address] [facility] [id number] [address] [place] [address] Jul, Diabetes type 2, controlled E11.9 [facility] [address] [facility] [id number] [address] [place] [address] Jul, Diabetes type 2, controlled E11.9 [facility] [address] [facility] [id number] [address] [place] [phone] Jun, [facility] [address] [facility] [id number] [address] [place] [address] Jun, Hypertension, benign I10 ; M ood disorder F39 and Diabetes type 2, controlled E11.9 [facility] [address] [facility] [id number] [address] [place] [address] Jun, Mood disorder F39 [facility] [address] [id number] [address] [place] [address] May, [facility] [address] [id number] [address] [place] [address] May, Mood disorder F39 [facility] [address] [facility] [id number] [address] [place] [address] May, Mood disorder F39 [facility] [address] [id number] [address] [place] [address] Apr, Controlled type 2 diabetes m ellitus without complication, without long-term current use of insulin E11.9 ; Essential hypertension I10 and Pain in right shoulder M25.511 [facility] [address] [id number] [address] [place] [address] Apr, Mood disorder F39 [facility] [address] [id number] [address] [place] [address] Apr, Pre-op evaluation Z01.818 [facility] [address] [id number] [address] [place] [address] March, Mood disorder F39 [facility] [address] [id number] [address] [place] [address] Feb, [facility] [address] [id number] [address] [place] [address] Feb, Shoulder pain, right M25.511 [facility] [address] [id number] [address] [place] [address] Feb, Shoulder pain, right M25.511 [facility] [address] [id number] [address] [place] [address] Feb, Shoulder pain, right M25.511 [facility] [address] [id number] [address] [place] [address] Feb, Shoulder pain, right M25.511 [facility] [address] [id number] [address] [place] [address] 30 Jan, 2016 Shoulder pain, right M25.511 [place] [address] [facility] [id number] [address] [place] [address] Jan, Shoulder pain, right M25.511 [place] [address] [facility] [id number] [address] [place] [phone] 16 Jan, 2016 [place] [address] [place] [id number] [address] [place] [phone] 14 Jan, 2016 Diabetes type 2, controlled E11.9 [place] [address] [facility] [id number] [address] [place] [address] Jan, Shoulder pain, right M25.511 ; Diabetes mellitus without mention of complication, type II or unspecified type, not stated as uncontrolled 250.00 and Diabetes type 2, controlled E11.9 [place] [address] [place] [id number] [address] [place] [address] Jan, [place] [address] [place] [id number] [address] [place] [address] Jan, [place] [address] [facility] [id number] [address] [place] [address] Dec, [place] [address] [place] [id number] [address] [place] [address] Oct, Callus of foot L84 [place] [address] [address] Oct, Anxiety F41.9 ; Callus of fo ot L84 and Dysuria R30.0 [place] [address] [facility] [id number] [address] [place] [address] Sep, Diabetes mellitus without me ntion of complication, type II or unspecified type, not stated as uncontrolled 250.00 [place] [address] [place] [id number] [address] [place] [address] Aug, Diabetes mellitus without me ntion of complication, type II or unspecified type, not stated as uncontrolled 250.00 [place] [address] [id number] [address] [place] [phone] 22 Jul, 2015 [facility] [address] [id number] [address] [place] [address] Jul, [facility] [address] [id number] [address] [place] [address] Jul, Diabetes mellitus without me ntion of complication, type II or unspecified type, not stated as uncontrolled 250.00 ; Essential hypertension, benign 401.1 and Anxiety state, unspecified 300.00 [facility] [address] [id number] [address] [place] [phone] Jul, [facility] [address] [id number] [address] [place] [address] Jun, [facility] [address] [id number] [address] [place] [address] Jun, [facility] [address] [id number] [address] [place] [address] May, [facility] [address] [id number] [address] [place] [address] May, [facility] [address] [id number] [address] [place] [address] Apr, [facility] [address] [id number] [address] [place] [address] Apr, Mood disorder 296.90 [facility] [address] [id number] [address] [place] [address] March, [facility] [address] [id number] [address] [place] [phone] Feb, [facility] [address] [id number] [address] [place] [phone] Feb, [facility] [address] [id number] [address] [place] [address] Jan, [facility] [address] [id number] [address] [place] [address], [place] [address] Jan, [facility] [address] [id number] [address] [place] [address], [place] [id number] Jan, [facility] [address] [id number] [address] [place] [address], [place] [id number] Jan, [facility] [address] [id number] [address] [place] [address], [place] [id number] Jan, [facility] [address] [id number] [address] [place] [address], [place] [id number] Jan, [facility] [address] [id number] [address] [place] [address], [place] [id number] Jan, [facility] [address] [id number] [address] [place] [address], [place] [id number] Jan, [facility] [address] [id number] [address] [place] [address], [place] [id number] Dec, [facility] [address] [id number] [address] [place] [address], [place] [id number] Dec, [facility] [address] [id number] [address] [place] [address], [place] [id number] Nov, [facility] [address] [id number] [address] [place] [address], [place] [id number] Nov, [facility] [address] [id number] [address] [place] [address], [place] [id number] Nov, [facility] [facility] [address] [id number] [address] [place] [address], [place] [address] Nov, [facility] [address] [id number] [address] [place] [address], [place] [address] Oct, [facility] [address] [id number] [address] [place] [address], [place] [address] Oct, [facility] [address] [id number] [address] [place] [address], [place] [address] Oct, [facility] [address] [id number] [address] [place] [address], [place] [address] Oct, [facility] [address] [id number] [address] [place] [address], [place] [address] Oct, [facility] [address] [id number] [address] [place] [address], [place] [address] Oct, [facility] [address] [id number] [address] [place] [address], [place] [address] Oct, [facility] [address] [id number] [address] [place] [address], [place] [id number] 17 Oct, 2014 [facility] [address] [id number] [address] [place] [address], [place] [id number] 15 Oct, 2014 [facility] [address] [id number] [address] [place] [address], [place] [address] Oct, [facility] [address] [id number] [address] [place] [address], [place] [address] Sep, [facility] [address] [id number] [address] [place] [address], [place] [id number] 19 Sep, 2014 [facility] [address] [id number] [address] [place] [address], [place] [address] 18 Sep, 2014 [facility] [address] [id number] [address] [place] [address], [place] [id number] 18 Sep, 2014 [facility] [address] [id number] [address] [place] [address], [place] [id number] 18 Sep, 2014 [facility] [address] [id number] [address] [place] [address], [place] [id number] 18 Sep, 2014 [facility] [address] [id number] [address] [place] [address], [place] [id number] 16 Aug, 2014 [facility] [address] [id number] [address] [place] [address], [place] [id number] 16 Aug, 2014 [facility] [address] [id number] [address] [place] [address] [place] [id number] Jul, [facility] [address] [id number] [address] [place] [address], [place] [address] Jul, [facility] [address] [id number] [address] [place] [address], [place] [address] Jun, [facility] [address] [id number] [address] [place] [address], [place] [address] Jun, [facility] [address] [id number] [address] [place] [address], [place] [address] May, [facility] [address] [id number] [address] [place] [address], [place] [address] May, [facility] [address] [id number] [address] [place] [address], [place] [address] Apr, [facility] [address] [id number] [address] [place] [address], [place] [address] Apr, [facility] [address] [id number] [address] [place] [address], [place] [address] Apr, [facility] [address] [id number] [address] [place] [address], [place] [address] Apr, [facility] [address] [id number] [address] [place] [address], [place] [address] March, [facility] [address] [id number] [address] [place] [address], [place] [id number] March, [facility] [address] [id number] [address] [place] [address], [place] [address] Jan, [facility] [address] [id number] [address] [place] [address], [place] [address] Jan, [facility] [address] [id number] [address] [place] [address], [place] [address] Jan, [facility] [address] [id number] [address] [place] [address], [place] [address] Jan, [facility] [address] [id number] [address] [place] [address], [place] [address] Jan, [facility] [address] [id number] [address] [place] [address], [place] [address] Jan, [facility] [address] [id number] [address] [place] [address], [place] [address] Dec, [facility] [address] [id number] [address] [place] [address], [place] [address] Dec, [facility] [address] [id number] [address] [place] [address], [place] [id number] Oct, [facility] [address] [id number] [address] [place] [address], [place] [address] Oct, [facility] [address] [id number] [address] [place] [address], [place] [address] Oct, [facility] [address] [id number] [address] [place] [address], [place] [address] Oct, [facility] [address] [id number] [address] [place] [address], [place] [address] Jul, [facility] [address] [id number] [address] [place] [address], [place] [address] Jul, [facility] [address] [id number] [address] [place] [address], [place] [address] Jul, [facility] [address] [id number] [address] [place] [address], [place] [address] Jun, [facility] [address] [id number] [address] [place] [address], [place] [address] Jun, [facility] [address] [id number] [address] [place] [address], [place] [address] May, [facility] [address] [id number] [address] [place] [address], [place] [address] May, [facility] [address] [id number] [address] [address] March, [facility] [address] [id number] [address] [place] [address], [place] [address] March, [facility] [address] [id number] [address] [place] [address] Feb, [facility] [address] [id number] [address] [place] [id number] Feb, [facility] [address] [id number] [address] [place] [id number] Jan, [facility] [address] [id number] [address] [place] [address], [place] [address] Dec, [facility] [address] [id number] [address] [place] [id number] Dec, [facility] [address] [id number] [address] [place] [id number] 15 Dec, 2012 [facility] [address] [id number] [address] [place] [id number] 14 Dec, 2012 [facility] [address] [id number] [address] [place] [id number] Dec, [facility] [address] [id number] [address] [place] [address] Nov, [facility] [address] [id number] [address] [place] [id number] Oct, [facility] [address] [id number] [address] [place] [id number] Oct, [facility] [address] [id number] [address] [place] [id number] Aug, [facility] [address] [id number] [address] [place] [id number] Aug, [facility] [address] [id number] [address] [place] [id number] Aug, [facility] [address] [id number] [address] [place] [address], [place] [address] Aug, [facility] [address] [id number] [address] [place] [address], [place] [address] Aug, [facility] [address] [id number] [address] [place] [address], [place] [address] Jul, [facility] [address] [id number] [address] [place] [address], [place] [address] Jul, [facility] [address] [id number] [address] [place] [address], [place] [address] Jun, [facility] [address] [id number] [address] [place] [address], [place] [address] Jun, [facility] [address] [id number] [address] [place] [address], [place] [address] May, [facility] [address] [id number] [address] [place] [address], [place] [address] May, [facility] [address] [id number] [address] [place] [address], [place] [address] May, [facility] [address] [id number] [address] [place] [address], [place] [address] Apr, [facility] [address] [id number] [address] [place] [address], [place] [address] Apr, [facility] [address] [id number] [address] [place] [address], [place] [address] March, [facility] [address] [id number] [address] [place] [address], [place] [address] March, [facility] [address] [id number] [address] [place] [address], [place] [address] 18 Feb, 2012 [facility] [address] [id number] [address] [place] [address], [place] [id number] 17 Feb, 2012 [facility] [address] [id number] [address] [place] [address] [address] Feb, [facility] [address] [facility] [id number] [address] [place] [address] Feb, IMMUNIZATIONS No Known Immunizations SOCIAL HISTORY [...]
--- OUTSIDE RECORDS SUMMARY | 2020-06-17 08:49 | XMS REPORT ---
Author Author Barrie BUSTILLO Organization [facility] Address [address] [place] [address] Care Team Providers Care Pest Control Worker Name Role Phone BARRIE BUSTILLO Unavailable PROBLEMS Type Condition ICD9-CM Code CZY33-ZT Code Onset Dates Condition S tatus SNOMED Code Problem Essential hypertension I10 Active 86644139 Problem Urinary hesitancy R39.11 Active 59 64095 Problem Obstructive sleep apnea G47.33 Active 43681783 Problem Controlled type 2 diabetes m ellitus without complication, without long- term current use of insulin E11.9 Active 432637066 Problem Primary insomnia F51.01 Active 397 2004 Problem 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 Acti ve 38816592 Problem Diabetes type 2, controlled E11.9 Ac tive 03626232 Problem 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.1 Active 758896087 Problem Acute superficial venous thrombosis of left lower extremit y I82.812 Active [id number] Problem Hesitancy of micturition R39.11 Activ e 9157089 Problem Benign prostatic hyperplasia with lower urinary tract symptoms N40.1 Active 625303892 ALLERGIES No Information ENCOUNTERS Encounter Location Date Diagnosis [place] [id number] [facility] [id number] [address] [place] [address] Apr, Exercise counseling Z71.82 [facility] [address] [facility] [id number] [address] [place] [phone] March, Moderate episode of recurren t major depressive disorder F33.1 [facility] [address] [facility] [id number] [address] [place] [address] March, Moderate episode of recurren t major depressive disorder F33.1 [facility] [address] [facility] [id number] [address] [place] [address] March, Exercise counseling Z71.82 [facility] [address] [id number] [address] [place] [address] March, [facility] [address] [id number] [address] [place] [address] March, Exercise counseling Z71.82 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 [address] [id number] [address] [place] [address] March, Moderate episode of recurren t major depressive disorder F33.1 [place] [address] [facility] [id number] [address] [place] [address] March, Exercise counseling Z71.82 [place] [address] [facility] [id number] [address] [place] [address] March, Exercise counseling Z71.82 [place] [address] [id number] [address] [place] [address] March, Callus of foot L84 [place] [address] [facility] [id number] [address] [place] [address] Feb, Moderate episode of recurren t major depressive disorder F33.1 [place] [address] [id number] [address] [place] [address] Feb, [facility] [address] [facility] [id number] [address] [place] [address] Feb, Moderate episode of recurren t major depressive disorder F33.1 [facility] [address] [id number] [address] [place] [phone] Feb, Diabetes type 2, controlled E11.9 and Essential hypertension I10 [facility] [address] [id number] [address] [place] [address] Jan, [facility] [address] [id number] [address] [place] [address] Jan, Callus of foot L84 [facility] [address] [facility] [id number] [address] [place] [address] Jan, Moderate episode of recurren t major depressive disorder F33.1 [facility] [address] [facility] [id number] [address] [place] [address] 05 Jan, 2019 Moderate episode of recurren t major depressive disorder F33.1 [facility] [address] [facility] [id number] [address] [place] [phone] Dec, Moderate episode of recurren t major depressive disorder F33.1 [place] [address] [facility] [id number] [address] [place] [address] 11 Dec, 2018 Candidiasis of the esophagus B37.81 [place] [address] [place] [id number] [address] [place] [address] Dec, [facility] [address] [facility] [id number] [address] [place] [address] Dec, Fecal occult blood test posi tive R19.5 and Anemia, unspecified type D64.9 [place] [address] [place] [id number] [address] [place] [address] Nov, Stool color black K92.1 [place] [address] [place] [id number] [address] [place] [address] Nov, Stool color black K92.1 [place] [address] [facility] [id number] [address] [place] [address] Nov, Stool color black K92.1 [place] [address] [facility] [id number] [address] [place] [address] Nov, [place] [address] [facility] [id number] [address] [place] [phone] Nov, Moderate episode of recurren t major depressive disorder F33.1 [place] [address] [facility] [id number] [address] [place] [address] Oct, Moderate episode of recurren t major depressive disorder F33.1 [place] [address] [id number] [address] [place] [phone] 18 Oct, 2018 Callus of foot L84 and Contr olled type 2 diabetes mellitus without complication, without long-term current use of insulin E11.9 [place] [address] [id number] [address] [place] [phone] 10 Oct, 2018 Moderate episode of recurren t major depressive disorder F33.1 [place] [address] [id number] [address] [place] [address] Aug, Mood disorder F39 [place] [address] [id number] [address] [place] [address] 05 Aug, 2018 Encounter for immunization Z 23 [place] [address] [id number] [address] [place] [address] Jul, Moderate episode of recurren t major depressive disorder F33.1 [place] [address] [id number] [address] [place] [phone] Jul, Moderate episode of recurren t major depressive disorder F33.1 [place] [address] [id number] [address] [place] [phone] May, [place] [address] [id number] [address] [place] [phone] May, Moderate episode of recurren t major depressive disorder F33.1 [place] [address] [id number] [address] [place] [address] May, Moderate episode of recurren t major depressive disorder F33.1 [place] [address] [id number] [address] [place] [address] Apr, Benign prostatic hyperplasia with lower urinary tract symptoms N40.1 and Hesitancy of micturition R39.11 [place] [address] [id number] [address] [place] [address] Apr, Moderate episode of recurren t major depressive disorder F33.1 [facility] [address] [id number] [address] [place] [phone] Apr, Unspecified mood [affective] disorder F39 and Primary insomnia F51.01 [facility] [address] [id number] [address] [place] [address] Apr, Primary insomnia F51.01 [facility] [address] [id number] [address] [place] [address] March, Foot callus L84 [facility] [address] [facility] [id number] [address] [place] [address] Feb, Medicare annual wellness vis it, initial Z00.00 [facility] [address] [facility] [id number] [address] [place] [address] Feb, Acute superficial venous thr ombosis of left lower extremity I82.812 [facility] [address] [facility] [id number] [address] [place] [address] Feb, [facility] [address] [facility] [id number] [address] [place] [address] Feb, [facility] [address] [facility] [id number] [address] [place] [address] Feb, Acute superficial venous thr ombosis of left lower extremity I82.812 [facility] [address] [facility] [id number] [address] [place] [address] Feb, [facility] [address] [id number] [address] [place] [address] Feb, Other specified soft tissue disorders M79.89 and Pain in left leg M79.605 [facility] [address] [facility] [id number] [address] [place] [address] Jan, Obstructive sleep apnea G47. 33 [facility] [address] [facility] [id number] [address] [place] [phone] Dec, Obstructive sleep apnea G47. [address] [facility] [address] [facility] [id number] [address] [place] [address] Dec, [facility] [address] [facility] [id number] [address] [place] [phone] Dec, [facility] [address] [facility] [id number] [address] [place] [phone] Nov, Diabetes type 2, controlled E11.9 [facility] [address] [facility] [id number] [address] [place] [address] Nov, Encounter for immunization Z 23 [facility] [address] [facility] [id number] [address] [place] [address] Nov, Primary insomnia F51.01 [facility] [address] [facility] [id number] [address] [place] [phone] 07 Oct, 2017 Medicare annual wellness vis it, subsequent Z00.[address] Mood [address]39 [facility] [address] [facility] [id number] [address] [place] [address] Sep, Mood disorder F39 [facility] [address] [facility] [id number] [address] [place] [address] Aug, Primary insomnia F51.01 and Urinary hesitancy R39.11 [facility] [address] [facility] [id number] [address] [place] [address] Aug, Primary insomnia F51.01 [facility] [address] [facility] [id number] [address] [place] [phone] Jul, Diabetes type 2, controlled E11.9 ; Primary insomnia F51.01 and Mood disorder F39 [facility] [address] [id number] [id number] Jun, Mood disorder F39 [facility] [address] [id number] Monika ALCOCER S [id number] Jun, [facility] [address] [facility] [id number] [address] [place] [address] May, Nightmares F51.5 [facility] [address] [id number] [address] [place] [address] May, Cognitive complaints R41.9 ; Unspecified mood [affective] disorder F39 and Primary insomnia F51.01 [facility] [address] [id number] [address] [place] [address] Apr, Mood disorder F39 and Primar y insomnia F51.01 [facility] [address] [id number] [address] [place] [address] Apr, Cognitive complaints R41.9 a nd Unspecified mood [affective] disorder F39 [facility] [address] [id number] [address] [place] [phone] Apr, Cognitive complaints R41.9 a nd Unspecified mood [affective] disorder F39 [facility] [address] [id number] [address] [place] [phone] March, [facility] [address] [id number] [address] [place] [address] March, Diabetes type 2, controlled E11.9 and Essential hypertension I10 [facility] [address] [id number] [address] [place] [phone] March, Primary insomnia F51.01 ; Di abetes type 2, controlled E11.9 and Pain in right shoulder M25.511 [facility] [address] [id number] [address] [place] [address] March, Cognitive complaints R41.9 a nd Unspecified mood [affective] disorder F39 [facility] [address] [id number] [address] [place] [phone] Feb, Other specified mental disor ders due to known physiological condition F06.8 [facility] [address] [id number] [address] [place] [phone] Jan, [facility] [address] [id number] [address] [place] [address] Jan, [facility] [address] [id number] [address] [place] [address] Dec, Diabetes type 2, controlled E11.9 ; Hypertension, benign I10 and Mood disorder F39 [facility] [address] [facility] [id number] [address] [place] [phone] 08 Dec, 2016 Medicare annual wellness vis it, initial Z00.00 [facility] [address] [facility] [id number] [address] [place] [phone] 05 Nov, 2016 Medicare welcome exam Z00.00 ; Encounter for immunization Z23 ; Medicare annual wellness visit, initial Z00.00 and Medicare annual wellness visit, subsequent Z00.00 [place] [address] [facility] [id number] [address] [place] [address] Oct, [facility] [address] [facility] [id number] [address] [place] [phone] Sep, [facility] [address] [place] [id number] [address] [place] [phone] Aug, Encounter for immunization Z 23 and Callus L84 [place] [address] [facility] [id number] [address] [place] [phone] Aug, [facility] [address] [facility] [id number] [address] [place] [address] Jul, Diabetes type 2, controlled E11.9 [facility] [address] [facility] [id number] [address] [place] [address] Jul, Diabetes type 2, controlled E11.9 [facility] [address] [facility] [id number] [address] [place] [address] Jun, [facility] [address] [facility] [id number] [address] [place] [address] Jun, Hypertension, benign I10 ; M ood disorder F39 and Diabetes type [address], [address] [facility] [address] [facility] [id number] [address] [place] [address] Jun, Mood disorder F39 [facility] [address] [id number] [address] [place] [address] May, [facility] [address] [id number] [address] [place] [phone] May, Mood disorder F39 [facility] [address] [facility] [id number] [address] [place] [address] May, Mood disorder F39 [facility] [address] [id number] [address] [place] [address] Apr, Controlled type 2 diabetes m ellitus without complication, without long-term current use of insulin E11.9 ; Essential hypertension I10 and Pain in right shoulder M25.511 [facility] [address] [id number] [address] [place] [phone] Apr, Mood disorder F39 [facility] [address] [id number] [address] [place] [address] Apr, Pre-op evaluation Z01.818 [facility] [address] [id number] [address] [place] [address] March, Mood disorder F39 [facility] [address] [id number] [address] [place] [address] Feb, [facility] [address] [id number] [address] [place] [address] Feb, Shoulder pain, right M25.511 [facility] [address] [id number] [address] [place] [address] Feb, Shoulder pain, right M25.511 [facility] [address] [id number] [address] [place] [address] Feb, Shoulder pain, right M25.511 [facility] [address] [id number] [address] [place] [address] Feb, Shoulder pain, right M25.511 [facility] [address] [id number] [address] [place] [address] 30 Jan, 2016 Shoulder pain, right M25.511 [place] [address] [facility] [id number] [address] [place] [address] Jan, Shoulder pain, right M25.511 [place] [address] [facility] [id number] [address] [place] [address] 16 Jan, 2016 [place] [address] [place] [id number] [address] [place] [id number] 14 Jan, 2016 Diabetes type 2, controlled E11.9 [place] [address] [facility] [id number] [address] [place] [address] Jan, Shoulder pain, right M25.511 ; Diabetes mellitus without mention of complication, type II or unspecified type, not stated as uncontrolled 250.00 and Diabetes type 2, controlled E11.9 [place] [address] [place] [id number] [address] [place] [address] Jan, [place] [address] [place] [id number] [address] [place] [address] Jan, [place] [address] [facility] [id number] [address] [place] [address] Dec, [place] [address] [place] [id number] [address] [place] [address] Oct, Callus of foot L84 [place] [address] [address] Oct, Anxiety F41.9 ; Callus of fo ot L84 and Dysuria R30.0 [place] [address] [facility] [id number] [address] [place] [address] Sep, Diabetes mellitus without me ntion of complication, type II or unspecified type, not stated as uncontrolled 250.00 [place] [address] [place] [id number] [address] [place] [phone] Aug, Diabetes mellitus without me ntion of complication, type II or unspecified type, not stated as uncontrolled 250.00 [place] [id number] [id number] [address] [place] [address] [address], [address] [facility] [address] [id number] [address] [place] [address] Jul, [facility] [address] [id number] [address] [place] [address] Jul, Diabetes mellitus without me ntion of complication, type II or unspecified type, not stated as uncontrolled 250.00 ; Essential hypertension, benign 401.1 and Anxiety state, unspecified 300.00 [facility] [address] [id number] [address] [place] [phone] Jul, [facility] [address] [id number] [address] [place] [phone] Jun, [facility] [address] [id number] [address] [place] [address] Jun, [facility] [address] [id number] [address] [place] [address] May, [facility] [address] [id number] [place] [address] May, [facility] [address] [id number] [address] [place] [id number] Apr, [facility] [address] [id number] [address] [place] [id number] Apr, Mood disorder 296.90 [facility] [address] [id number] [address] [place] [phone] March, [facility] [address] [id number] [address] [place] [id number] Feb, [facility] [address] [id number] [address] [place] [phone] Feb, [facility] [address] [id number] [address] [place] [phone] Jan, [facility] [address] [id number] [address] [place] [address], [place] [phone] Jan, [facility] [address] [id number] [address] [place] [address], [place] [phone] Jan, [facility] [address] [id number] [address] [place] [address], [place] [address] Jan, [facility] [address] [id number] [address] [place] [address], [place] [address] Jan, [facility] [address] [id number] [address] [place] [address], [place] [address] Jan, [facility] [address] [id number] [address] [place] [address], [place] [address] Jan, [facility] [address] [id number] [address] [place] [address], [place] [address] Jan, [facility] [address] [id number] [address] [place] [address], [place] [address] Dec, [facility] [address] [id number] [address] [place] [address], [place] [address] Dec, [facility] [address] [id number] [address] [place] [address], [place] [address] Nov, [facility] [address] [id number] [address] [place] [address], [place] [address] Nov, [facility] [address] [id number] [address] [place] [address], [place] [id number] Nov, [facility] [address] [id number] [address] [place] [address], [place] [address] Nov, [facility] [address] [id number] [address] [place] [address], [place] [address] Oct, [facility] [address] [id number] [address] [place] [address], [place] [address] Oct, [facility] [address] [id number] [address] [place] [address], [place] [address] Oct, [facility] [address] [id number] [address] [place] [address], [place] [address] Oct, [facility] [address] [id number] [address] [place] [address], [place] [address] Oct, [facility] [address] [id number] [address] [place] [address], [place] [address] Oct, [facility] [address] [id number] [address] [place] [address], [place] [address] Oct, [facility] [address] [id number] [address] [place] [address], [place] [address] 17 Oct, 2014 [facility] [address] [id number] [address] [place] [address], [place] [address] 15 Oct, 2014 [facility] [address] [id number] [address] [place] [address], [place] [address] Oct, [facility] [address] [id number] [address] [place] [address], [place] [address] Sep, [facility] [address] [id number] [address] [place] [address], [place] [address] 19 Sep, 2014 [facility] [address] [id number] [address] [place] [address], [place] [address] 18 Sep, 2014 [facility] [address] [id number] [address] [place] [address], [place] [address] 18 Sep, 2014 [facility] [address] [id number] [address] [place] [address], [place] [address] 18 Sep, 2014 [facility] [address] [id number] [address] [place] [address], [place] [address] 18 Sep, 2014 [facility] [address] [id number] [address] [place] [address], [place] [address] 16 Aug, 2014 [facility] [address] [id number] [address] [place] [address], [place] [address] 16 Aug, 2014 [facility] [address] [id number] [address] [place] [address] [place] [address] Jul, [facility] [address] [id number] [address] [place] [address], [place] [address] Jul, [facility] [address] [id number] [address] [place] [address], [place] [address] Jun, [facility] [address] [id number] [address] [place] [address], [place] [address] Jun, [facility] [address] [id number] [address] [place] [address], [place] [address] May, [facility] [address] [id number] [address] [place] [address], [place] [address] May, [facility] [address] [id number] [address] [place] [address], [place] [address] Apr, [facility] [address] [id number] [address] [place] [address], [place] [address] Apr, [facility] [address] [id number] [address] [place] [address], [place] [address] Apr, [facility] [address] [id number] [address] [place] [address], [place] [address] Apr, [facility] [address] [id number] [address] [place] [address], [place] [address] March, [facility] [address] [id number] [address] [place] [address], [place] [address] March, [facility] [address] [id number] [address] [place] [address], [place] [address] Jan, [facility] [address] [id number] [address] [place] [address], [place] [address] Jan, [facility] [address] [id number] [address] [place] [address], [place] [address] Jan, [facility] [address] [id number] [address] [place] [address], [place] [address] Jan, [facility] [address] [id number] [address] [place] [address], [place] [address] Jan, [facility] [address] [id number] [address] [place] [address], [place] [address] Jan, [facility] [address] [id number] [address] [place] [address], [place] [address] Dec, [facility] [address] [id number] [address] [place] [address], [place] [address] Dec, [facility] [address] [id number] [address] [place] [address], [place] [address] Oct, [facility] [address] [id number] [address] [place] [address], [place] [address] Oct, [facility] [address] [id number] [address] [place] [address], [place] [address] Oct, [facility] [address] [id number] [address] [place] [address], [place] [address] Oct, [facility] [address] [id number] [address] [place] [address], [place] [address] Jul, [facility] [address] [id number] [address] [place] [address], [place] [address] Jul, [facility] [address] [id number] [address] [place] [address], [place] [address] Jul, [facility] [address] [id number] [address] [place] [address], [place] [address] Jun, [facility] [address] [id number] [address] [place] [address], [place] [address] Jun, [facility] [address] [id number] [address] [place] [address], [place] [address] May, [facility] [address] [id number] [address] [place] [address], [place] [address] May, [facility] [address] [id number] [place] [address] March, [facility] [address] [id number] [address] [place] [address], [place] [address] March, [facility] [address] [id number] [address] [place] [address] Feb, [facility] [address] [id number] [address] [place] [address] Feb, [facility] [address] [id number] [address] [place] [address] Jan, [facility] [address] [id number] [address] [place] [address], [place] [address] Dec, [facility] [address] [id number] [address] [place] [address] Dec, [facility] [address] [id number] [address] [place] [address] 15 Dec, 2012 [facility] [address] [id number] [address] [place] [address] 14 Dec, 2012 [facility] [address] [id number] [address] [place] [address] Dec, [facility] [address] [id number] [address] [place] [address] Nov, [facility] [address] [id number] [address] [place] [address] Oct, [facility] [address] [id number] [address] [place] [address] Oct, [facility] [address] [id number] [address] [place] [address] Aug, [facility] [address] [id number] [address] [place] [address] Aug, [facility] [address] [id number] [address] [place] [address] Aug, [facility] [address] [id number] [address] [place] [address], [place] [address] Aug, [facility] [address] [id number] [address] [place] [address], [place] [address] Aug, [facility] [address] [id number] [address] [place] [address], [place] [address] Jul, [facility] [address] [id number] [address] [place] [address], [place] [address] Jul, [facility] [address] [id number] [address] [place] [address], [place] [address] Jun, [facility] [address] [id number] [address] [place] [address], [place] [address] Jun, [facility] [address] [id number] [address] [place] [address], [place] [address] May, [facility] [address] [id number] [address] [place] [address], [place] [address] May, [facility] [address] [id number] [address] [place] [address], [place] [address] May, [facility] [address] [id number] [address] [place] [address], [place] [address] Apr, [facility] [address] [id number] [address] [place] [address], [place] [address] Apr, [facility] [address] [id number] [address] [place] [address], [place] [address] March, [facility] [address] [id number] [address] [place] [address], [place] [address] March, [facility] [address] [id number] [address] [place] [address], [place] [address] 18 Feb, 2012 [facility] [address] [id number] [address] [place] [address], [place] [address] 17 Feb, 2012 [facility] [address] [id number] [address] [place] [address] [address] Feb, [facility] [address] [facility] [id number] [address] [place] [address] Feb, IMMUNIZATIONS No Known Immunizations SOCIAL HISTORY Never Assessed REASON FOR VISIT PLAN OF CARE VITAL SIGNS Height 71 in 2014-10-25 Weight 278.31 lbs 2014-10-25 Temperature 98.6 degrees Fahrenheit 2014-10-25 Heart Rate 60 bpm 2014-10-25 Respiratory Rate 20 2014-10-25 Blood pressure systolic 140 mmHg 2014-10-25 Blood pressure diastolic 100 mmHg 2014-10-25 MEDICATIONS Unknown Medications RESULTS No Results PROCEDURES [...]
--- OUTSIDE RECORDS SUMMARY | 2020-06-17 08:49 | XMS REPORT ---
Author Author Barrie BUSTILLO Organization [facility] Address [address] [place] [address] Care Team Providers Care Thread Inspector Name Role Phone BARRIE BUSTILLO Unavailable PROBLEMS Type Condition ICD9-CM Code QZH75-OF Code Onset Dates Condition S tatus SNOMED Code Problem Essential hypertension I10 Active 49025058 Problem Urinary hesitancy R39.11 Active 59 75477 Problem Obstructive sleep apnea G47.33 Active 39705203 Problem Controlled type 2 diabetes m ellitus without complication, without long- term current use of insulin E11.9 Active 591419343 Problem Primary insomnia F51.01 Active 397 2004 Problem 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 Acti ve 91613050 Problem Diabetes type 2, controlled E11.9 Ac tive 72352624 Problem 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.1 Active 901502592 Problem Acute superficial venous thrombosis of left lower extremit y I82.812 Active 29507777734816181 Problem Hesitancy of micturition R39.11 Activ e 3142722 Problem Benign prostatic hyperplasia with lower urinary tract symptoms N40.1 Active 427747379 ALLERGIES No Information ENCOUNTERS Encounter Location Date Diagnosis [place] [id number] [facility] [id number] [address] [place] [address] Apr, Exercise counseling Z71.82 [facility] [address] [facility] [id number] [address] [place] [address] March, Moderate episode of recurren t major depressive disorder F33.1 [facility] [address] [facility] [id number] [address] [place] [address] March, Moderate episode of recurren t major depressive disorder F33.1 [facility] [address] [facility] [id number] [address] [place] [address] March, Exercise counseling Z71.82 [facility] [address] [id number] [address] [place] [address] March, [facility] [address] [id number] [address] [place] [address] March, Exercise counseling Z71.82 [facility] [address] [facility] [id number] [address] [place] [address] March, Right otitis media with effu yousuf H65.91 ; 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 and Diabetes type 2, controlled E11.9 [facility] [address] [id number] [address] [place] [address] March, Moderate episode of recurren t major depressive disorder F33.1 [place] [address] [facility] [id number] [address] [place] [address] March, Exercise counseling Z71.82 [place] [address] [facility] [id number] [address] [place] [address] March, Exercise counseling Z71.82 [place] [address] [id number] [address] [place] [address] March, Callus of foot L84 [place] [address] [facility] [id number] [address] [place] [address] Feb, Moderate episode of recurren t major depressive disorder F33.1 [place] [address] [id number] [address] [place] [address] Feb, [facility] [address] [facility] [id number] [address] [place] [address] Feb, Moderate episode of recurren t major depressive disorder F33.1 [facility] [address] [id number] [address] [place] [address] Feb, Diabetes type 2, controlled E11.9 and Essential hypertension I10 [facility] [address] [id number] [address] [place] [address] Jan, [facility] [address] [id number] [address] [place] [address] Jan, Callus of foot L84 [facility] [address] [facility] [id number] [address] [place] [address] Jan, Moderate episode of recurren t major depressive disorder F33.1 [facility] [address] [facility] [id number] [address] [place] [address] 05 Jan, 2019 Moderate episode of recurren t major depressive disorder F33.1 [facility] [address] [facility] [id number] [address] [place] [address] Dec, Moderate episode of recurren t major depressive disorder F33.1 [place] [address] [facility] [id number] [address] [place] [address] 11 Dec, 2018 Candidiasis of the esophagus B37.81 [place] [address] [place] [id number] [address] [place] [address] Dec, [facility] [address] [facility] [id number] [address] [place] [address] Dec, Fecal occult blood test posi tive R19.5 and Anemia, unspecified type D64.9 [place] [address] [place] [id number] [address] [place] [address] Nov, Stool color black K92.1 [place] [address] [place] [id number] [address] [place] [address] Nov, Stool color black K92.1 [place] [address] [facility] [id number] [address] [place] [address] Nov, Stool color black K92.1 [place] [address] [facility] [id number] [address] [place] [address] Nov, [place] [address] [facility] [id number] [address] [place] [address] Nov, Moderate episode of recurren t major depressive disorder F33.1 [place] [address] [facility] [id number] [address] [place] [address] Oct, Moderate episode of recurren t major depressive disorder F33.1 [place] [address] [id number] [address] [place] [address] 18 Oct, 2018 Callus of foot L84 and Contr olled type 2 diabetes mellitus without complication, without long-term current use of insulin E11.9 [place] [address] [id number] [address] [place] [address] 10 Oct, 2018 Moderate episode of recurren t major depressive disorder F33.1 [place] [address] [id number] [address] [place] [address] Aug, Mood disorder F39 [place] [address] [id number] [address] [place] [address] 05 Aug, 2018 Encounter for immunization Z 23 [place] [address] [id number] [address] [place] [address] Jul, Moderate episode of recurren t major depressive disorder F33.1 [place] [address] [id number] [address] [place] [address] Jul, Moderate episode of recurren t major depressive disorder F33.1 [place] [address] [id number] [address] [place] [address] May, [place] [address] [id number] [address] [place] [address] May, Moderate episode of recurren t major depressive disorder F33.1 [place] [address] [id number] [address] [place] [address] May, Moderate episode of recurren t major depressive disorder F33.1 [place] [address] [id number] [address] [place] [address] Apr, Benign prostatic hyperplasia with lower urinary tract symptoms N40.1 and Hesitancy of micturition R39.11 [place] [address] [id number] [address] [place] [address] Apr, Moderate episode of recurren t major depressive disorder F33.1 [facility] [address] [id number] [address] [place] [address] Apr, Unspecified mood [affective] disorder F39 and Primary insomnia F51.01 [facility] [address] [id number] [address] [place] [address] Apr, Primary insomnia F51.01 [facility] [address] [id number] [address] [place] [address] March, Foot callus L84 [facility] [address] [facility] [id number] [address] [place] [address] Feb, Medicare annual wellness vis it, initial Z00.00 [facility] [address] [facility] [id number] [address] [place] [address] Feb, Acute superficial venous thr ombosis of left lower extremity I82.812 [facility] [address] [facility] [id number] [address] [place] [address] Feb, [facility] [address] [facility] [id number] [address] [place] [address] Feb, [facility] [address] [facility] [id number] [address] [place] [address] Feb, Acute superficial venous thr ombosis of left lower extremity I82.812 [facility] [address] [facility] [id number] [address] [place] [address] Feb, [facility] [address] [id number] [address] [place] [address] Feb, Other specified soft tissue disorders M79.89 and Pain in left leg M79.605 [facility] [address] [facility] [id number] [address] [place] [address] Jan, Obstructive sleep apnea G47. 33 [facility] [address] [facility] [id number] [address] [place] [address] Dec, Obstructive sleep apnea G47. 33 and Mood disorder F39 [facility] [address] [facility] [id number] [address] [place] [address] Dec, [facility] [address] [facility] [id number] [address] [place] [address] Dec, [facility] [address] [facility] [id number] [address] [place] [address] Nov, Diabetes type 2, controlled E11.9 [facility] [address] [facility] [id number] [address] [place] [address] Nov, Encounter for immunization Z 23 [facility] [address] [facility] [id number] [address] [place] [address] Nov, Primary insomnia F51.01 [facility] [address] [facility] [id number] [address] [place] [address] 07 Oct, 2017 Medicare annual wellness vis it, subsequent Z00.00 and Mood disorder F39 [facility] [address] [facility] [id number] [address] [place] [address] Sep, Mood disorder F39 [facility] [address] [facility] [id number] [address] [place] [address] Aug, Primary insomnia F51.01 and Urinary hesitancy R39.11 [facility] [address] [facility] [id number] [address] [place] [address] Aug, Primary insomnia F51.01 [facility] [address] [facility] [id number] [address] [place] [address] Jul, Diabetes type 2, controlled E11.9 ; Primary insomnia F51.[address] [facility] [address] [id number] [id number] Jun, Mood disorder F39 [facility] [address] [id number] Monika ALCOCER S [id number] Jun, [facility] [address] [facility] [id number] [address] [place] [address] May, Nightmares F51.5 [facility] [address] [id number] [address] [place] [address] May, Cognitive complaints R41.9 ; Unspecified mood [affective] disorder F39 and Primary insomnia F51.01 [facility] [address] [id number] [address] [place] [address] Apr, Mood disorder F39 and Primar y insomnia F51.01 [facility] [address] [id number] [address] [place] [address] Apr, Cognitive complaints R41.9 a nd Unspecified mood [affective] disorder F39 [facility] [address] [id number] [address] [place] [address] Apr, Cognitive complaints R41.9 a nd Unspecified mood [affective] disorder F39 [facility] [address] [id number] [address] [place] [address] March, [facility] [address] [id number] [address] [place] [address] March, Diabetes type 2, controlled E11.9 and Essential hypertension I10 [facility] [address] [id number] [address] [place] [address] March, Primary insomnia F51.01 ; Di abetes type 2, controlled E11.9 and Pain in right shoulder M25.511 [facility] [address] [id number] [address] [place] [address] March, Cognitive complaints R41.9 a nd Unspecified mood [affective] disorder F39 [facility] [address] [id number] [address] [place] [address] Feb, Other specified mental disor ders due to known physiological condition F06.8 [facility] [address] [id number] [address] [place] [address] Jan, [facility] [address] [id number] [address] [place] [address] Jan, [facility] [address] [id number] [address] [place] [address] Dec, Diabetes type 2, controlled E11.9 ; Hypertension, benign I10 and Mood disorder F39 [facility] [address] [facility] [id number] [address] [place] [address] 08 Dec, 2016 Medicare annual wellness vis it, initial Z00.00 [facility] [address] [facility] [id number] [address] [place] [address] 05 Nov, 2016 Medicare welcome exam Z00.00 ; Encounter for immunization Z23 ; Medicare annual wellness visit, initial Z00.00 and Medicare annual wellness visit, subsequent Z00.00 [place] [address] [facility] [id number] [address] [place] [address] Oct, [facility] [address] [facility] [id number] [address] [place] [address] Sep, [facility] [address] [place] [id number] [address] [place] [address] Aug, Encounter for immunization Z 23 and Callus L84 [place] [address] [facility] [id number] [address] [place] [address] Aug, [facility] [address] [facility] [id number] [address] [place] [address] Jul, Diabetes type 2, controlled E11.9 [facility] [address] [facility] [id number] [address] [place] [address] Jul, Diabetes type 2, controlled E11.9 [facility] [address] [facility] [id number] [address] [place] [address] Jun, [facility] [address] [facility] [id number] [address] [place] [address] Jun, Hypertension, benign I10 ; M ood disorder F39 and Diabetes type 2, controlled E11.9 [facility] [address] [facility] [id number] [address] [place] [address] Jun, Mood disorder F39 [facility] [address] [id number] [address] [place] [address] May, [facility] [address] [id number] [address] [place] [address] May, Mood disorder F39 [facility] [address] [facility] [id number] [address] [place] [address] May, Mood disorder F39 [facility] [address] [id number] [address] [place] [address] Apr, Controlled type 2 diabetes m ellitus without complication, without long-term current use of insulin E11.9 ; Essential hypertension I10 and Pain in right shoulder M25.511 [facility] [address] [id number] [address] [place] [address] Apr, Mood disorder F39 [facility] [address] [id number] [address] [place] [address] Apr, Pre-op evaluation Z01.818 [facility] [address] [id number] [address] [place] [address] March, Mood disorder F39 [facility] [address] [id number] [address] [place] [address] Feb, [facility] [address] [id number] [address] [place] [address] Feb, Shoulder pain, right M25.511 [facility] [address] [id number] [address] [place] [address] Feb, Shoulder pain, right M25.511 [facility] [address] [id number] [address] [place] [address] Feb, Shoulder pain, right M25.511 [facility] [address] [id number] [address] [place] [address] Feb, Shoulder pain, right M25.511 [facility] [address] [id number] [address] [place] [address] 30 Jan, 2016 Shoulder pain, right M25.511 [place] [address] [facility] [id number] [address] [place] [address] Jan, Shoulder pain, right M25.511 [place] [address] [facility] [id number] [address] [place] [address] 16 Jan, 2016 [place] [address] [place] [id number] [address] [place] [address] 14 Jan, 2016 Diabetes type 2, controlled E11.9 [place] [address] [facility] [id number] [address] [place] [address] Jan, Shoulder pain, right M25.511 ; Diabetes mellitus without mention of complication, type II or unspecified type, not stated as uncontrolled 250.00 and Diabetes type 2, controlled E11.9 [place] [address] [place] [id number] [address] [place] [address] Jan, [place] [address] [place] [id number] [address] [place] [address] Jan, [place] [address] [facility] [id number] [address] [place] [address] Dec, [place] [address] [place] [id number] [address] [place] [address] Oct, Callus of foot L84 [place] [address] [address] Oct, Anxiety F41.9 ; Callus of fo ot L84 and Dysuria R30.0 [place] [address] [facility] [id number] [address] [place] [address] Sep, Diabetes mellitus without me ntion of complication, type II or unspecified type, not stated as uncontrolled 250.00 [place] [address] [place] [id number] [address] [place] [address] Aug, Diabetes mellitus without me ntion of complication, type II or unspecified type, not stated as uncontrolled 250.00 [place] [address] [id number] [address] [place] [address] 22 Jul, 2015 [facility] [address] [id number] [address] [place] [address] Jul, [facility] [address] [id number] [address] [place] [address] Jul, Diabetes mellitus without me ntion of complication, type II or unspecified type, not stated as uncontrolled 250.00 ; Essential hypertension, benign 401.1 and Anxiety state, unspecified 300.00 [facility] [address] [id number] [address] [place] [address] Jul, [facility] [address] [id number] [address] [place] [address] Jun, [facility] [address] [id number] [address] [place] [address] Jun, [facility] [address] [id number] [address] [place] [address] May, [facility] [address] [id number] [address] [place] [address] May, [facility] [address] [id number] [address] [place] [address] Apr, [facility] [address] [id number] [address] [place] [address] Apr, Mood disorder 296.90 [facility] [address] [id number] [address] [place] [address] March, [facility] [address] [id number] [address] [place] [address] Feb, [facility] [address] [id number] [address] [place] [address] Feb, [facility] [address] [id number] [address] [place] [address] Jan, [facility] [address] [id number] [address] [place] [address], [place] [address] Jan, [facility] [address] [id number] [address] [place] [address], [place] [address] Jan, [facility] [address] [id number] [address] [place] [address], [place] [address] Jan, [facility] [address] [id number] [address] [place] [address], [place] [address] Jan, [facility] [address] [id number] [address] [place] [address], [place] [address] Jan, [facility] [address] [id number] [address] [place] [address], [place] [address] Jan, [facility] [address] [id number] [address] [place] [address], [place] [address] Jan, [facility] [address] [id number] [address] [place] [address], [place] [address] Dec, [facility] [address] [id number] [address] [place] [address], [place] [address] Dec, [facility] [address] [id number] [address] [place] [address], [place] [address] Nov, [facility] [address] [id number] [address] [place] [address], [place] [address] Nov, [facility] [address] [id number] [address] [place] [address], [place] [address] Nov, [facility] [address] [id number] [address] [place] [address], [place] [address] Nov, [facility] [address] [id number] [address] [place] [address], [place] [id number] Oct, [facility] [address] [id number] [address] [place] [address], [place] [address] Oct, [facility] [address] [id number] [address] [place] [address], [place] [address] Oct, [facility] [address] [id number] [address] [place] [address], [place] [id number] Oct, [facility] [address] [id number] [address] [place] [address], [place] [address] Oct, [facility] [address] [id number] [address] [place] [address], [place] [id number] Oct, [facility] [address] [id number] [address] [place] [address], [place] [id number] Oct, [facility] [address] [id number] [address] [place] [address], [place] [id number] 17 Oct, 2014 [facility] [address] [id number] [address] [place] [address], [place] [id number] 15 Oct, 2014 [facility] [address] [id number] [address] [place] [address], [place] [address] Oct, [facility] [address] [id number] [address] [place] [address], [place] [id number] Sep, [facility] [address] [id number] [address] [place] [address], [place] [id number] 19 Sep, 2014 [facility] [address] [id number] [address] [place] [address], [place] [id number] 18 Sep, 2014 [facility] [address] [id number] [address] [place] [address], [place] [address] 18 Sep, 2014 [facility] [address] [id number] [address] [place] [address], [place] [id number] 18 Sep, 2014 [facility] [address] [id number] [address] [place] [address], [place] [address] 18 Sep, 2014 [facility] [address] [id number] [address] [place] [address], [place] [id number] 16 Aug, 2014 [facility] [address] [id number] [address] [place] [address], [place] [id number] 16 Aug, 2014 [facility] [address] [id number] [address] [place] [address] [place] [id number] Jul, [facility] [facility] [address] [id number] [address] [place] [address], [place] [address] Jul, [facility] [address] [id number] [address] [place] [address], [place] [address] Jun, [facility] [address] [id number] [address] [place] [address], [place] [address] Jun, [facility] [address] [id number] [address] [place] [address], [place] [address] May, [facility] [address] [id number] [address] [place] [address], [place] [address] May, [facility] [address] [id number] [address] [place] [address], [place] [address] Apr, [facility] [address] [id number] [address] [place] [address], [place] [address] Apr, [facility] [address] [id number] [address] [place] [address], [place] [address] Apr, [facility] [address] [id number] [address] [place] [address], [place] [address] Apr, [facility] [address] [id number] [address] [place] [address], [place] [address] March, [facility] [address] [id number] [address] [place] [address], [place] [address] March, [facility] [address] [id number] [address] [place] [address], [place] [address] Jan, [facility] [address] [id number] [address] [place] [address], [place] [address] Jan, [facility] [address] [id number] [address] [place] [address], [place] [address] Jan, [facility] [address] [id number] [address] [place] [address], [place] [address] Jan, [facility] [address] [id number] [address] [place] [address], [place] [address] Jan, [facility] [address] [id number] [address] [place] [address], [place] [address] Jan, [facility] [address] [id number] [address] [place] [address], [place] [address] Dec, [facility] [address] [id number] [address] [place] [address], [place] [address] Dec, [facility] [address] [id number] [address] [place] [address], [place] [address] Oct, [facility] [address] [id number] [address] [place] [address], [place] [address] Oct, [facility] [address] [id number] [address] [place] [address], [place] [address] Oct, [facility] [address] [id number] [address] [place] [address], [place] [address] Oct, [facility] [address] [id number] [address] [place] [address], [place] [address] Jul, [facility] [address] [id number] [address] [place] [address], [place] [address] Jul, [facility] [address] [id number] [address] [place] [address], [place] [address] Jul, [facility] [address] [id number] [address] [place] [address], [place] [address] Jun, [facility] [address] [id number] [address] [place] [address], [place] [address] Jun, [facility] [address] [id number] [address] [place] [address], [place] [address] May, [facility] [address] [id number] [address] [place] [address], [place] [address] May, [facility] [address] [id number] [address] [address] March, [facility] [address] [id number] [address] [place] [address], [place] [address] March, [facility] [address] [id number] [address] [place] [id number] Feb, [facility] [address] [id number] [address] [place] [id number] Feb, [facility] [address] [id number] [address] [place] [address] Jan, [facility] [address] [id number] [address] [place] [address], [place] [address] Dec, [facility] [address] [id number] [address] [place] [address] Dec, [facility] [address] [id number] [address] [place] [id number] 15 Dec, 2012 [facility] [address] [id number] [address] [place] [id number] 14 Dec, 2012 [facility] [address] [id number] [address] [place] [address] Dec, [facility] [address] [id number] [address] [place] [id number] Nov, [facility] [address] [id number] [address] [place] [id number] Oct, [facility] [address] [id number] [address] [place] [address] Oct, [facility] [address] [id number] [address] [place] [id number] Aug, [facility] [address] [id number] [address] [place] [address] Aug, [facility] [address] [id number] [address] [place] [id number] Aug, [facility] [address] [id number] [address] [place] [address], [place] [address] Aug, [facility] [address] [id number] [address] [place] [address], [place] [address] Aug, [facility] [address] [id number] [address] [place] [address], [place] [address] Jul, [facility] [address] [id number] [address] [place] [address], [place] [address] Jul, [facility] [address] [id number] [address] [place] [address], [place] [address] Jun, [facility] [address] [id number] [address] [place] [address], [place] [address] Jun, [facility] [address] [id number] [address] [place] [address], [place] [address] May, [facility] [address] [id number] [address] [place] [address], [place] [address] May, [facility] [address] [id number] [address] [place] [address], [place] [address] May, [facility] [address] [id number] [address] [place] [address], [place] [address] Apr, [facility] [address] [id number] [address] [place] [address], [place] [address] Apr, [facility] [address] [id number] [address] [place] [address], [place] [address] March, [facility] [address] [id number] [address] [place] [address], [place] [address] March, [facility] [address] [id number] [address] [place] [address], [place] [address] 18 Feb, 2012 [facility] [address] [id number] [address] [place] [address], [place] [address] 17 Feb, 2012 [facility] [address] [id number] [address] [place] [address] [address] Feb, [facility] [address] [facility] [id number] [address] [place] [address] Feb, IMMUNIZATIONS No Known Immunizations SOCIAL HISTORY [...]
--- OUTSIDE RECORDS SUMMARY | 2020-06-17 08:50 | XMS REPORT ---
Author Author Barrie BUSTILLO Organization [facility] Address [address] [place] [address] Care Team Providers Care Mechanical Engineering Lecturer Name Role Phone BARRIE BUSTILLO Unavailable PROBLEMS Type Condition ICD9-CM Code NFQ47-VR Code Onset Dates Condition S tatus SNOMED Code Problem Essential hypertension I10 Active 49268443 Problem Urinary hesitancy R39.11 Active 59 83846 Problem Obstructive sleep apnea G47.33 Active 42332858 Problem Controlled type 2 diabetes m ellitus without complication, without long- term current use of insulin E11.9 Active 762998965 Problem Primary insomnia F51.01 Active 397 2004 Problem 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 Acti ve 64876835 Problem Diabetes type 2, controlled E11.9 Ac tive 36659017 Problem 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.1 Active 029951777 Problem Acute superficial venous thrombosis of left lower extremit y I82.812 Active [id number] Problem Hesitancy of micturition R39.11 Activ e 5101885 Problem Benign prostatic hyperplasia with lower urinary tract symptoms N40.1 Active [id number] ALLERGIES No Information ENCOUNTERS Encounter Location Date Diagnosis [place] [address] [facility] [id number] [address] [place] [address] Apr, Exercise counseling Z71.82 [facility] [address] [facility] [id number] [address] [place] [address] March, Moderate episode of recurren t major depressive disorder F33.1 [facility] [address] [facility] [id number] [address] [place] [address] March, Moderate episode of recurren t major depressive disorder F33.1 [facility] [address] [facility] [id number] [address] [place] [address] March, Exercise counseling Z71.82 [facility] [address] [id number] [address] [place] [address] March, [facility] [address] [id number] [address] [place] [address] March, Exercise counseling Z71.82 [facility] [address] [facility] [id number] [address] [place] [address] March, Right otitis media with effu yousuf H65.91 ; 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 and Diabetes type 2, controlled E11.9 [facility] [address] [id number] [address] [place] [address] March, Moderate episode of recurren t major depressive disorder F33.1 [place] [address] [facility] [id number] [address] [place] [address] March, Exercise counseling Z71.82 [place] [address] [facility] [id number] [address] [place] [address] March, Exercise counseling Z71.82 [place] [address] [id number] [address] [place] [address] March, Callus of foot L84 [place] [address] [facility] [id number] [address] [place] [address] Feb, Moderate episode of recurren t major depressive disorder F33.1 [place] [address] [id number] [address] [place] [address] Feb, [facility] [address] [facility] [id number] [address] [place] [address] Feb, Moderate episode of recurren t major depressive disorder F33.1 [facility] [address] [id number] [address] [place] [address] Feb, Diabetes type 2, controlled E11.9 and Essential hypertension I10 [facility] [address] [id number] [address] [place] [address] Jan, [facility] [address] [id number] [address] [place] [address] Jan, Callus of foot L84 [facility] [address] [facility] [id number] [address] [place] [address] Jan, Moderate episode of recurren t major depressive disorder F33.1 [facility] [address] [facility] [id number] [address] [place] [address] 05 Jan, 2019 Moderate episode of recurren t major depressive disorder F33.1 [facility] [address] [facility] [id number] [address] [place] [address] Dec, Moderate episode of recurren t major depressive disorder F33.1 [place] [address] [facility] [id number] [address] [place] [address] 11 Dec, 2018 Candidiasis of the esophagus B37.81 [place] [address] [place] [id number] [address] [place] [address] Dec, [facility] [address] [facility] [id number] [address] [place] [address] Dec, Fecal occult blood test posi tive R19.5 and Anemia, unspecified type D64.9 [place] [address] [place] [id number] [address] [place] [address] Nov, Stool color black K92.1 [place] [address] [place] [id number] [address] [place] [address] Nov, Stool color black K92.1 [place] [address] [facility] [id number] [address] [place] [address] Nov, Stool color black K92.1 [place] [address] [facility] [id number] [address] [place] [address] Nov, [place] [address] [facility] [id number] [address] [place] [address] Nov, Moderate episode of recurren t major depressive disorder F33.1 [place] [address] [facility] [id number] [address] [place] [address] Oct, Moderate episode of recurren t major depressive disorder F33.1 [place] [address] [id number] [address] [place] [address] 18 Oct, 2018 Callus of foot L84 and Contr olled type 2 diabetes mellitus without complication, without long-term current use of insulin E11.9 [place] [address] [id number] [address] [place] [address] 10 Oct, 2018 Moderate episode of recurren t major depressive disorder F33.1 [place] [address] [id number] [address] [place] [address] Aug, Mood disorder F39 [place] [address] [id number] [address] [place] [address] 05 Aug, 2018 Encounter for immunization Z 23 [place] [address] [id number] [address] [place] [address] Jul, Moderate episode of recurren t major depressive disorder F33.1 [place] [address] [id number] [address] [place] [address] Jul, Moderate episode of recurren t major depressive disorder F33.1 [place] [address] [id number] [address] [place] [address] May, [place] [address] [id number] [address] [place] [address] May, Moderate episode of recurren t major depressive disorder F33.1 [place] [address] [id number] [address] [place] [address] May, Moderate episode of recurren t major depressive disorder F33.1 [place] [address] [id number] [address] [place] [address] Apr, Benign prostatic hyperplasia with lower urinary tract symptoms N40.1 and Hesitancy of micturition R39.11 [place] [address] [id number] [address] [place] [address] Apr, Moderate episode of recurren t major depressive disorder F33.1 [facility] [address] [id number] [address] [place] [address] Apr, Unspecified mood [affective] disorder F39 and Primary insomnia F51.01 [facility] [address] [id number] [address] [place] [address] Apr, Primary insomnia F51.01 [facility] [address] [id number] [address] [place] [address] March, Foot callus L84 [facility] [address] [facility] [id number] [address] [place] [address] Feb, Medicare annual wellness vis it, initial Z00.00 [facility] [address] [facility] [id number] [address] [place] [address] Feb, Acute superficial venous thr ombosis of left lower extremity I82.812 [facility] [address] [facility] [id number] [address] [place] [address] Feb, [facility] [address] [facility] [id number] [address] [place] [address] Feb, [facility] [address] [facility] [id number] [address] [place] [address] Feb, Acute superficial venous thr ombosis of left lower extremity I82.812 [facility] [address] [facility] [id number] [address] [place] [address] Feb, [facility] [address] [id number] [address] [place] [address] Feb, Other specified soft tissue disorders M79.89 and Pain in left leg M79.605 [facility] [address] [facility] [id number] [address] [place] [address] Jan, Obstructive sleep apnea G47. 33 [facility] [address] [facility] [id number] [address] [place] [address] Dec, Obstructive sleep apnea G47. 33 and Mood disorder F39 [facility] [address] [facility] [id number] [address] [place] [address] Dec, [facility] [address] [facility] [id number] [address] [place] [address] Dec, [facility] [address] [facility] [id number] [address] [place] [address] Nov, Diabetes type 2, controlled E11.9 [facility] [address] [facility] [id number] [address] [place] [address] Nov, Encounter for immunization Z 23 [facility] [address] [facility] [id number] [address] [place] [address] Nov, Primary insomnia F51.01 [facility] [address] [facility] [id number] [address] [place] [address] 07 Oct, 2017 Medicare annual wellness vis it, subsequent Z00.00 and Mood disorder F39 [facility] [address] [facility] [id number] [address] [place] [address] Sep, Mood disorder F39 [facility] [address] [facility] [id number] [address] [place] [address] Aug, Primary insomnia F51.01 and Urinary hesitancy R39.11 [facility] [address] [facility] [id number] [address] [place] [address] Aug, Primary insomnia F51.01 [facility] [address] [facility] [id number] [address] [place] [address] Jul, Diabetes type 2, controlled E11.9 ; Primary insomnia F51.01 and Mood disorder F39 [facility] [address] [id number] [id number] Jun, Mood disorder F39 [facility] [address] [id number] Monika ALCOCER S [id number] Jun, [facility] [address] [facility] [id number] [address] [place] [address] May, Nightmares F51.5 [facility] [address] [id number] [address] [place] [address] May, Cognitive complaints R41.9 ; Unspecified mood [affective] disorder F39 and Primary insomnia F51.01 [facility] [address] [id number] [address] [place] [address] Apr, Mood disorder F39 and Primar y insomnia F51.01 [facility] [address] [id number] [address] [place] [address] Apr, Cognitive complaints R41.9 a nd Unspecified mood [affective] disorder F39 [facility] [address] [id number] [address] [place] [address] Apr, Cognitive complaints R41.9 a nd Unspecified mood [affective] disorder F39 [facility] [address] [id number] [address] [place] [address] March, [facility] [address] [id number] [address] [place] [address] March, Diabetes type 2, controlled E11.9 and Essential hypertension I10 [facility] [address] [id number] [address] [place] [address] March, Primary insomnia F51.01 ; Di abetes type 2, controlled E11.9 and Pain in right shoulder M25.511 [facility] [address] [id number] [address] [place] [address] March, Cognitive complaints R41.9 a nd Unspecified mood [affective] disorder F39 [facility] [address] [id number] [address] [place] [address] Feb, Other specified mental disor ders due to known physiological condition F06.8 [facility] [address] [id number] [address] [place] [address] Jan, [facility] [address] [id number] [address] [place] [address] Jan, [facility] [address] [id number] [address] [place] [address] Dec, Diabetes type 2, controlled E11.9 ; Hypertension, benign I10 and Mood disorder F39 [facility] [address] [facility] [id number] [address] [place] [address] 08 Dec, 2016 Medicare annual wellness vis it, initial Z00.00 [facility] [address] [facility] [id number] [address] [place] [address] 05 Nov, 2016 Medicare welcome exam Z00.00 ; Encounter for immunization Z23 ; Medicare annual wellness visit, initial Z00.00 and Medicare annual wellness visit, subsequent Z00.00 [place] [address] [facility] [id number] [address] [place] [address] Oct, [facility] [address] [facility] [id number] [address] [place] [address] Sep, [facility] [address] [place] [id number] [address] [place] [address] Aug, Encounter for immunization Z 23 and Callus L84 [place] [address] [facility] [id number] [address] [place] [address] Aug, [facility] [address] [facility] [id number] [address] [place] [address] Jul, Diabetes type 2, controlled E11.9 [facility] [address] [facility] [id number] [address] [place] [address] Jul, Diabetes type 2, controlled E11.9 [facility] [address] [facility] [id number] [address] [place] [address] Jun, [facility] [address] [facility] [id number] [address] [place] [address] Jun, Hypertension, benign I10 ; M ood disorder F39 and Diabetes type 2, controlled E11.9 [facility] [address] [facility] [id number] [address] [place] [address] Jun, Mood disorder F39 [facility] [address] [id number] [address] [place] [address] May, [facility] [address] [id number] [address] [place] [address] May, Mood disorder F39 [facility] [address] [facility] [id number] [address] [place] [address] May, Mood disorder F39 [facility] [address] [id number] [address] [place] [address] Apr, Controlled type 2 diabetes m ellitus without complication, without long-term current use of insulin E11.9 ; Essential hypertension I10 and Pain in right shoulder M25.511 [facility] [address] [id number] [address] [place] [address] Apr, Mood disorder F39 [facility] [address] [id number] [address] [place] [address] Apr, Pre-op evaluation Z01.818 [facility] [address] [id number] [address] [place] [address] March, Mood disorder F39 [facility] [address] [id number] [address] [place] [address] Feb, [facility] [address] [id number] [address] [place] [address] Feb, Shoulder pain, right M25.511 [facility] [address] [id number] [address] [place] [address] Feb, Shoulder pain, right M25.511 [facility] [address] [id number] [address] [place] [address] Feb, Shoulder pain, right M25.511 [facility] [address] [id number] [address] [place] [address] Feb, Shoulder pain, right M25.511 [facility] [address] [id number] [address] [place] [address] 30 Jan, 2016 Shoulder pain, right M25.511 [place] [address] [facility] [id number] [address] [place] [address] Jan, Shoulder pain, right M25.511 [place] [address] [facility] [id number] [address] [place] [address] 16 Jan, 2016 [place] [address] [place] [id number] [address] [place] [address] 14 Jan, 2016 Diabetes type 2, controlled E11.9 [place] [address] [facility] [id number] [address] [place] [address] Jan, Shoulder pain, right M25.511 ; Diabetes mellitus without mention of complication, type II or unspecified type, not stated as uncontrolled 250.00 and Diabetes type 2, controlled E11.9 [place] [address] [place] [id number] [address] [place] [address] Jan, [place] [address] [place] [id number] [address] [place] [address] Jan, [place] [address] [facility] [id number] [address] [place] [address] Dec, [place] [address] [place] [id number] [address] [place] [address] Oct, Callus of foot L84 [place] [address] [address] Oct, Anxiety F41.9 ; Callus of fo ot L84 and Dysuria R30.0 [place] [address] [facility] [id number] [address] [place] [address] Sep, Diabetes mellitus without me ntion of complication, type II or unspecified type, not stated as uncontrolled 250.00 [place] [address] [place] [id number] [address] [place] [address] Aug, Diabetes mellitus without me ntion of complication, type II or unspecified type, not stated as uncontrolled 250.00 [place] [address] [id number] [address] [place] [address] 22 Jul, 2015 [facility] [address] [id number] [address] [place] [address] Jul, [facility] [address] [id number] [address] [place] [address] Jul, Diabetes mellitus without me ntion of complication, type II or unspecified type, not stated as uncontrolled 250.00 ; Essential hypertension, benign 401.1 and Anxiety state, unspecified 300.00 [facility] [address] [id number] [address] [place] [address] Jul, [facility] [address] [id number] [address] [place] [address] Jun, [facility] [address] [id number] [address] [place] [address] Jun, [facility] [address] [id number] [address] [place] [address] May, [facility] [address] [id number] [address] [place] [address] May, [facility] [address] [id number] [address] [place] [address] Apr, [facility] [address] [id number] [address] [place] [address] Apr, Mood disorder 296.90 [facility] [address] [id number] [address] [place] [address] March, [facility] [address] [id number] [address] [place] [address] Feb, [facility] [address] [id number] [address] [place] [address] Feb, [facility] [address] [id number] [address] [place] [address] Jan, [facility] [address] [id number] [address] [place] [address], [place] [phone] Jan, [facility] [address] [id number] [address] [place] [address], [place] [phone] Jan, [facility] [address] [id number] [address] [place] [address], [place] [address] Jan, [facility] [address] [id number] [address] [place] [address], [place] [address] Jan, [facility] [address] [id number] [address] [place] [address], [place] [phone] Jan, [facility] [address] [id number] [address] [place] [address], [place] [address] Jan, [facility] [address] [id number] [address] [place] [address], [place] [address] Jan, [facility] [address] [id number] [address] [place] [address], [place] [phone] Dec, [facility] [address] [id number] [address] [place] [address], [place] [phone] Dec, [facility] [address] [id number] [address] [place] [address], [place] [phone] Nov, [facility] [address] [id number] [address] [place] [address], [place] [id number] Nov, [facility] [address] [id number] [address] [place] [address], [place] [id number] Nov, [facility] [address] [id number] [address] [place] [address], [place] [id number] Nov, [facility] [address] [id number] [address] [place] [address], [place] [id number] Oct, [facility] [address] [id number] [address] [place] [address], [place] [id number] Oct, [facility] [address] [id number] [address] [place] [address], [place] [id number] Oct, [facility] [address] [id number] [address] [place] [address], [place] [id number] Oct, [facility] [address] [id number] [address] [place] [address], [place] [id number] Oct, [facility] [address] [id number] [address] [place] [address], [place] [id number] Oct, [facility] [address] [id number] [address] [place] [address], [place] [id number] Oct, [facility] [address] [id number] [address] [place] [address], [place] [id number] 17 Oct, 2014 [facility] [address] [id number] [address] [place] [address], [place] [id number] 15 Oct, 2014 [facility] [address] [id number] [address] [place] [address], [place] [id number] Oct, [facility] [address] [id number] [place] [address], [place] [phone] Sep, [facility] [address] [id number] [address] [place] [address], [place] [address] 19 Sep, 2014 [facility] [address] [id number] [address] [place] [address], [place] [id number] 18 Sep, 2014 [facility] [address] [id number] [address] [place] [address], [place] [address] 18 Sep, 2014 [facility] [address] [id number] [address] [place] [address], [place] [id number] 18 Sep, 2014 [facility] [address] [id number] [address] [place] [address], [place] [id number] 18 Sep, 2014 [facility] [address] [id number] [address] [place] [address], [place] [id number] 16 Aug, 2014 [facility] [address] [id number] [address] [place] [address], [place] [id number] 16 Aug, 2014 [facility] [address] [id number] [address] [place] [address] [place] [id number] Jul, [facility] [address] [id number] [address] [place] [address], [place] [id number] Jul, [facility] [address] [id number] [address] [place] [address], [place] [address] Jun, [facility] [address] [id number] [address] [place] [address], [place] [id number] Jun, [facility] [address] [id number] [address] [place] [address], [place] [address] May, [facility] [address] [id number] [address] [place] [address], [place] [address] May, [facility] [address] [id number] [address] [place] [address], [place] [id number] Apr, [facility] [address] [id number] [address] [place] [address], [place] [address] Apr, [facility] [address] [id number] [address] [place] [address], [place] [address] Apr, [facility] [address] [id number] [address] [place] [address], [place] [id number] Apr, [facility] [address] [id number] [address] [place] [address], [place] [phone] March, [facility] [address] [id number] [address] [place] [address], [place] [id number] March, [facility] [address] [id number] [address] [place] [address], [place] [id number] Jan, [facility] [address] [id number] [address] [place] [address], [place] [phone] Jan, [facility] [address] [id number] [address] [place] [address], [place] [address] Jan, [facility] [address] [id number] [address] [place] [address], [place] [phone] Jan, [facility] [address] [id number] [address] [place] [address], [place] [address] Jan, [facility] [address] [id number] [address] [place] [address], [place] [id number] Jan, [facility] [address] [id number] [address] [place] [address], [place] [id number] Dec, [facility] [address] [id number] [address] [place] [address], [place] [address] Dec, [facility] [address] [id number] [address] [place] [address], [place] [id number] Oct, [facility] [address] [id number] [address] [place] [address], [place] [phone] Oct, [facility] [address] [id number] [address] [place] [address], [place] [id number] Oct, [facility] [address] [id number] [address] [place] [address], [place] [id number] Oct, [facility] [address] [id number] [address] [place] [address], [place] [id number] Jul, [facility] [address] [id number] [address] [place] [address], [place] [id number] Jul, [facility] [address] [id number] [address] [place] [address], [place] [phone] Jul, [facility] [address] [id number] [address] [place] [address], [place] [id number] Jun, [facility] [address] [id number] [address] [place] [address], [place] [id number] Jun, [facility] [address] [id number] [address] [place] [address], [place] [phone] May, [facility] [address] [id number] [address] [place] [address], [place] [address] May, [facility] [address] [id number] [address] [address] March, [facility] [address] [id number] [address] [place] [address], [place] [address] March, [facility] [address] [id number] [address] [place] [id number] Feb, [facility] [address] [id number] [address] [place] [id number] Feb, [facility] [address] [id number] [address] [place] [id number] Jan, [facility] [address] [id number] [address] [place] [address], [place] [id number] Dec, [facility] [address] [id number] [address] [place] [id number] Dec, [facility] [place] [address] [id number] [address] [place] [id number] 15 Dec, 2012 [facility] [address] [id number] [address] [place] [id number] 14 Dec, 2012 [facility] [address] [id number] [address] [place] [id number] Dec, [facility] [address] [id number] [address] [place] [phone] Nov, [facility] [place] [address] [id number] [address] [place] [id number] Oct, [facility] [address] [id number] [address] [place] [id number] Oct, [facility] [address] [id number] [address] [place] [id number] Aug, [facility] [address] [id number] [address] [place] [id number] Aug, [facility] [address] [id number] [address] [place] [phone] Aug, [facility] [address] [id number] [address] [place] [address], [place] [phone] Aug, [facility] [address] [id number] [address] [place] [address], [place] [id number] Aug, [facility] [address] [id number] [address] [place] [address], [place] [id number] Jul, [facility] [address] [id number] [address] [place] [address], [place] [id number] Jul, [facility] [address] [id number] [address] [place] [address], [place] [id number] Jun, [facility] [address] [id number] [address] [place] [address], [place] [id number] Jun, [facility] [address] [id number] [address] [place] [address], [place] [phone] May, [facility] [address] [id number] [address] [place] [address], [place] [address] May, [facility] [address] [id number] [address] [place] [address], [place] [address] May, [facility] [address] [id number] [address] [place] [address], [place] [id number] Apr, [facility] [address] [id number] [address] [place] [address], [place] [id number] Apr, [facility] [address] [id number] [address] [place] [address], [place] [phone] March, [facility] [address] [id number] [address] [place] [address], [place] [id number] March, [facility] [address] [id number] [address] [place] [address], [place] [id number] 18 Feb, 2012 [facility] [address] [id number] [address] [place] [address], [place] [id number] 17 Feb, 2012 [facility] [address] [id number] [address] [place] [address] [address] Feb, [facility] [address] [facility] [id number] [address] [place] [address] Feb, IMMUNIZATIONS No Known Immunizations SOCIAL HISTORY Never Assessed REASON FOR VISIT PLAN OF CARE VITAL SIGNS Height 71 in 2015-02-02 Weight 269 lbs 2015-02-02 Temperature 97.8 degrees Fahrenheit 2015-02-02 Heart Rate 74 bpm 2015-02-02 Respiratory Rate 18 2015-02-02 Blood pressure systolic 124 mmHg 2015-02-02 Blood pressure diastolic 74 mmHg 2015-02-02 MEDICATIONS Unknown Medications RESULTS No Results PROCEDURES Procedure Date Ordered Result Body Site PROS CANCER SCR; NEW PT DIGTL RECTAL EXAM February 02, 2015 POLYSOMNOGRAPHY W/CPAP February 02, 2015 GLYCATED HEMOGLOBIN TEST February 02, 2015 MICROALBUMIN, SEMIQUANT February 02, 2015 INSTRUCTIONS MEDICATIONS ADMINISTERED No Known Medications MEDICAL [...]
--- OUTSIDE RECORDS SUMMARY | 2020-06-17 08:50 | XMS REPORT ---
Author Author Barrie BUSTILLO Organization [facility] [place] Address [address] [place] [address] Care Team Providers Care Nurse Staff Industrial Name Role Phone BARRIE BUSTILLO Unavailable PROBLEMS Type Condition ICD9-CM Code SAS88-RX Code Onset Dates Condition S tatus SNOMED Code Problem Essential hypertension I10 Active 59279650 Problem Urinary hesitancy R39.11 Active 59 22396 Problem Obstructive sleep apnea G47.33 Active 00905669 Problem Controlled type 2 diabetes m ellitus without complication, without long- term current use of insulin E11.9 Active 460681992 Problem Primary insomnia F51.01 Active 397 2004 Problem 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 Acti ve 40582142 Problem Diabetes type 2, controlled E11.9 Ac tive 60393656 Problem 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.1 Active 651418742 Problem Acute superficial venous thrombosis of left lower extremit y I82.812 Active [id number] Problem Hesitancy of micturition R39.11 Activ e 5170623 Problem Benign prostatic hyperplasia with lower urinary tract symptoms N40.1 Active 294534068 ALLERGIES No Information ENCOUNTERS Encounter Location Date Diagnosis [place] [id number] [id number] [place] [id number] Apr, Exercise counseling Z71.82 [facility] [place] [address] [facility] [id number] [place] [phone] March, Moderate episode of recurren t major depressive disorder F33.1 [facility] [place] [address] [facility] [id number] [place] [phone] March, Moderate episode of recurren t major depressive disorder F33.1 [facility] [place] [address] [facility] [id number] [place] [phone] March, Exercise counseling Z71.82 [facility] [place] [address] [id number] [address] [place] [phone] March, [facility] [place] [address] [id number] [address] [place] [phone] March, Exercise counseling Z71.82 [facility] [place] [address] [facility] [id number] [place] [id number] March, Right otitis media with effu yousuf H65.91 ; 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 and Diabetes type 2, controlled E11.9 [facility] [place] [address] [id number] [address] [place] [id number] March, Moderate episode of recurren t major depressive disorder F33.1 [place] [facility] [id number] [place] [phone] March, Exercise counseling Z71.82 [place] [facility] [id number] [place] [phone] March, Exercise counseling Z71.82 [place] [address] [id number] [address] [place] [id number] March, Callus of foot L84 [place] [facility] [id number] [place] [phone] Feb, Moderate episode of recurren t major depressive disorder F33.1 [place] [id number] [id number] [address] [place] [phone] Feb, [facility] [place] [address] [facility] [id number] [place] [phone] Feb, Moderate episode of recurren t major depressive disorder F33.1 [facility] [place] [address] [id number] [address] [place] [id number] Feb, Diabetes type 2, controlled E11.9 and Essential hypertension I10 [facility] [place] [address] [id number] [address] [place] [phone] Jan, [facility] [place] [address] [id number] [address] [place] [id number] Jan, Callus of foot L84 [facility] [place] [address] [facility] [id number] [place] [phone] Jan, Moderate episode of recurren t major depressive disorder F33.1 [facility] [place] [address] [facility] [id number] [place] [phone] 05 Jan, 2019 Moderate episode of recurren t major depressive disorder F33.1 [facility] [place] [address] [facility] [id number] [place] [phone] Dec, Moderate episode of recurren t major depressive disorder F33.1 [place] [facility] [id number] [place] [phone] 11 Dec, 2018 Candidiasis of the esophagus B37.81 [place] [address] [place] [id number] [address] [place] [phone] Dec, [facility] [address] [facility] [id number] [place] [phone] Dec, Fecal occult blood test posi tive R19.5 and Anemia, unspecified type D64.9 [place] [address] [place] [id number] [address] [place] [phone] Nov, Stool color black K92.1 [place] [address] [place] [id number] [address] [place] [id number] Nov, Stool color black K92.1 [place] [facility] [id number] [place] [phone] Nov, Stool color black K92.1 [place] [facility] [id number] [place] [phone] Nov, [place] [facility] [id number] [place] [phone] Nov, Moderate episode of recurren t major depressive disorder F33.1 [place] [facility] [id number] [place] [phone] Oct, Moderate episode of recurren t major depressive disorder F33.1 [place] [address] [id number] [address] [place] [id number] 18 Oct, 2018 Callus of foot L84 and Contr olled type 2 diabetes mellitus without complication, without long-term current use of insulin E11.9 [place] [address] [id number] [address] [place] [id number] 10 Oct, 2018 Moderate episode of recurren t major depressive disorder F33.1 [place] [address] [id number] [address] [place] [phone] Aug, Mood disorder F39 [place] [address] [id number] [address] [place] [id number] 05 Aug, 2018 Encounter for immunization Z 23 [place] [address] [id number] [address] [place] [phone] Jul, Moderate episode of recurren t major depressive disorder F33.1 [place] [address] [id number] [address] [place] [phone] Jul, Moderate episode of recurren t major depressive disorder F33.1 [place] [address] [id number] [address] [place] [phone] May, [place] [address] [id number] [address] [place] [phone] May, Moderate episode of recurren t major depressive disorder F33.1 [place] [address] [id number] [address] [place] [phone] May, Moderate episode of recurren t major depressive disorder F33.1 [place] [address] [id number] [address] [place] [phone] Apr, Benign prostatic hyperplasia with lower urinary tract symptoms N40.1 and Hesitancy of micturition R39.11 [place] [address] [id number] [address] [place] [phone] Apr, Moderate episode of recurren t major depressive disorder F33.1 [facility] [place] [address] [id number] [address] [place] [phone] Apr, Unspecified mood [affective] disorder F39 and Primary insomnia F51.01 [facility] [place] [address] [id number] [address] [place] [phone] Apr, Primary insomnia F51.01 [facility] [place] [address] [id number] [address] [place] [id number] March, Foot callus L84 [facility] [place] [address] [facility] [id number] [place] [id number] Feb, Medicare annual wellness vis it, initial Z00.00 [facility] [place] [address] [facility] [id number] [place] [phone] Feb, Acute superficial venous thr ombosis of left lower extremity I82.812 [facility] [place] [address] [facility] [id number] [place] [phone] Feb, [facility] [place] [address] [facility] [id number] [place] [phone] Feb, [facility] [place] [address] [facility] [id number] [place] [id number] Feb, Acute superficial venous thr ombosis of left lower extremity I82.812 [facility] [place] [address] [facility] [id number] [place] [phone] Feb, [facility] [address] [id number] [address] [place] [phone] Feb, Other specified soft tissue disorders M79.89 and Pain in left leg M79.605 [facility] [place] [address] [facility] [id number] [place] [phone] Jan, Obstructive sleep apnea G47. 33 [facility] [place] [address] [facility] [id number] [place] [phone] Dec, Obstructive sleep apnea G47. 33 and Mood disorder F39 [facility] [place] [address] [facility] [id number] [place] [phone] Dec, [facility] [place] [address] [facility] [id number] [place] [id number] Dec, [facility] [place] [address] [facility] [id number] [place] [phone] Nov, Diabetes type 2, controlled E11.9 [facility] [place] [address] [facility] [id number] [place] [phone] Nov, Encounter for immunization Z 23 [facility] [place] [address] [facility] [id number] [place] [id number] Nov, Primary insomnia F51.01 [facility] [place] [address] [facility] [id number] [place] [id number] 07 Oct, 2017 Medicare annual wellness vis it, subsequent Z00.00 and Mood disorder F39 [facility] [place] [address] [facility] [id number] [place] [id number] Sep, Mood disorder F39 [facility] [place] [address] [facility] [id number] [place] [id number] Aug, Primary insomnia F51.01 and Urinary hesitancy R39.11 [facility] [place] [address] [facility] [id number] [place] [phone] Aug, Primary insomnia F51.01 [facility] [place] [address] [facility] [id number] [place] [phone] Jul, Diabetes type 2, controlled E11.9 ; Primary insomnia F51.01 and Mood disorder F[address] [facility] [address] [id number] [id number] Jun, Mood disorder F39 [facility] [address] [id number] Monika ALCOCER S [id number] Jun, [facility] [place] [address] [facility] [id number] [place] [phone] May, Nightmares F51.5 [facility] [place] [address] [id number] [address] [place] [phone] May, Cognitive complaints R41.9 ; Unspecified mood [affective] disorder F39 and Primary insomnia F51.01 [facility] [place] [address] [id number] [address] [place] [phone] Apr, Mood disorder F39 and Primar y insomnia F51.01 [facility] [place] [address] [id number] [address] [place] [id number] Apr, Cognitive complaints R41.9 a nd Unspecified mood [affective] disorder F39 [facility] [place] [address] [id number] [address] [place] [phone] Apr, Cognitive complaints R41.9 a nd Unspecified mood [affective] disorder F39 [facility] [place] [address] [id number] [address] [place] [id number] March, [facility] [place] [address] [id number] [address] [place] [phone] March, Diabetes type 2, controlled E11.9 and Essential hypertension I10 [facility] [place] [address] [id number] [address] [place] [id number] March, Primary insomnia F51.01 ; Di abetes type 2, controlled E11.9 and Pain in right shoulder M25.511 [facility] [place] [address] [id number] [address] [place] [phone] March, Cognitive complaints R41.9 a nd Unspecified mood [affective] disorder F39 [facility] [place] [address] [id number] [address] [place] [phone] Feb, Other specified mental disor ders due to known physiological condition F06.8 [facility] [place] [address] [id number] [address] [place] [phone] Jan, [facility] [place] [address] [id number] [address] [place] [phone] Jan, [facility] [place] [address] [id number] [address] [place] [id number] Dec, Diabetes type 2, controlled E11.9 ; Hypertension, benign I10 and Mood disorder F39 [facility] [place] [address] [facility] [id number] [place] [id number] 08 Dec, 2016 Medicare annual wellness vis it, initial Z00.00 [facility] [place] [address] [facility] [id number] [place] [id number] 05 Nov, 2016 Medicare welcome exam Z00.00 ; Encounter for immunization Z23 ; Medicare annual wellness visit, initial Z00.00 and Medicare annual wellness visit, subsequent Z00.00 [place] [address] [id number] [place] [phone] Oct, [facility] [place] [address] [facility] [id number] [place] [id number] Sep, [facility] [place] [address] [place] [id number] [address] [place] [phone] Aug, Encounter for immunization Z 23 and Callus L84 [place] [address] [id number] [place] [id number] Aug, [facility] [place] [address] [facility] [id number] [place] [id number] Jul, Diabetes type 2, controlled E11.9 [facility] [place] [address] [facility] [id number] [place] [phone] Jul, Diabetes type 2, controlled E11.9 [facility] [place] [address] [facility] [id number] [place] [phone] Jun, [facility] [place] [address] [facility] [id number] [place] [phone] Jun, Hypertension, benign I10 ; M ood disorder F39 and Diabetes type 2, controlled E11.9 [facility] [place] [address] [facility] [id number] [place] [id number] Jun, Mood disorder F39 [facility] [place] [address] [id number] [address] [place] [phone] May, [facility] [place] [address] [id number] [address] [place] [id number] May, Mood disorder F39 [facility] [place] [address] [facility] [id number] [place] [phone] May, Mood disorder F39 [facility] [place] [address] [id number] [address] [place] [phone] Apr, Controlled type 2 diabetes m ellitus without complication, without long-term current use of insulin E11.9 ; Essential hypertension I10 and Pain in right shoulder M25.511 [facility] [place] [address] [id number] [address] [place] [id number] Apr, Mood disorder F39 [facility] [place] [address] [id number] [address] [place] [id number] Apr, Pre-op evaluation Z01.818 [facility] [place] [address] [id number] [address] [place] [phone] March, Mood disorder F39 [facility] [place] [address] [id number] [address] [place] [id number] Feb, [facility] [place] [address] [id number] [address] [place] [id number] Feb, Shoulder pain, right M25.511 [facility] [place] [address] [id number] [address] [place] [id number] Feb, Shoulder pain, right M25.511 [facility] [place] [address] [id number] [address] [place] [phone] Feb, Shoulder pain, right M25.511 [facility] [place] [address] [id number] [address] [place] [id number] Feb, Shoulder pain, right M25.511 [facility] [place] [address] [id number] [address] [place] [phone] 30 Jan, 2016 Shoulder pain, right M25.511 [place] [facility] [id number] [place] [phone] Jan, Shoulder pain, right M25.511 [place] [facility] [id number] [place] [id number] 16 Jan, 2016 [place] [address] [place] [id number] [address] [place] [id number] 14 Jan, 2016 Diabetes type 2, controlled E11.9 [place] [facility] [id number] [place] [id number] Jan, Shoulder pain, right M25.511 ; Diabetes mellitus without mention of complication, type II or unspecified type, not stated as uncontrolled 250.00 and Diabetes type 2, controlled E11.9 [place] [address] [place] [id number] [address] [place] [phone] Jan, [place] [address] [place] [id number] [address] [place] [phone] Jan, [place] [facility] [id number] [place] [phone] Dec, [place] [address] [place] [id number] [address] [place] [id number] Oct, Callus of foot L84 [place] [address] [phone] Oct, Anxiety F41.9 ; Callus of fo ot L84 and Dysuria R30.0 [place] [facility] [id number] [place] [phone] Sep, Diabetes mellitus without me ntion of complication, type II or unspecified type, not stated as uncontrolled 250.00 [place] [address] [place] [id number] [address] [place] [phone] Aug, Diabetes mellitus without me ntion of complication, type II or unspecified type, not stated as uncontrolled 250.00 [place] [id number] [id number] [address] [place] [id number] 22 Jul, 2015 [facility] [address] [id number] [address] [place] [phone] Jul, [facility] [place] [address] [id number] [address] [place] [id number] Jul, Diabetes mellitus without me ntion of complication, type II or unspecified type, not stated as uncontrolled 250.00 ; Essential hypertension, benign 401.1 and Anxiety state, unspecified 300.00 [facility] [place] [address] [id number] [address] [place] [id number] Jul, [facility] [place] [address] [id number] [address] [place] [phone] Jun, [facility] [place] [address] [id number] [address] [place] [id number] Jun, [facility] [place] [address] [id number] [address] [place] [id number] May, [facility] [place] [address] [id number] [address] [place] [phone] May, [facility] [place] [address] [id number] [address] [place] [id number] Apr, [facility] [place] [address] [id number] [address] [place] [id number] Apr, Mood disorder 296.90 [facility] [place] [address] [id number] [address] [place] [id number] March, [facility] [place] [address] [id number] [address] [place] [id number] Feb, [facility] [place] [address] [id number] [address] [place] [id number] Feb, [facility] [place] [address] [id number] [address] [place] [id number] Jan, [facility] [address] [id number] [address] [place] [address], [place] [phone] Jan, [facility] [address] [id number] [address] [place] [address], [place] [address] Jan, [facility] [address] [id number] [address] [place] [address], [place] [address] Jan, [facility] [address] [id number] [address] [place] [address], [place] [address] Jan, [facility] [address] [id number] [address] [place] [address], [place] [address] Jan, [facility] [address] [id number] [address] [place] [address], [place] [address] Jan, [facility] [address] [id number] [address] [place] [address], [place] [address] Jan, [facility] [address] [id number] [address] [place] [address], [place] [address] Dec, [facility] [address] [id number] [address] [place] [address], [place] [address] Dec, [facility] [address] [id number] [address] [place] [address], [place] [address] Nov, [facility] [address] [id number] [address] [place] [address], [place] [address] Nov, [facility] [address] [id number] [address] [place] [address], [place] [address] Nov, [facility] [address] [id number] [address] [place] [address], [place] [address] Nov, [facility] [address] [id number] [address] [place] [address], [place] [address] Oct, [facility] [address] [id number] [address] [place] [address], [place] [address] Oct, [facility] [address] [id number] [address] [place] [address], [place] [address] Oct, [facility] [address] [id number] [address] [place] [address], [place] [address] Oct, [facility] [address] [id number] [address] [place] [address], [place] [address] Oct, [facility] [address] [id number] [address] [place] [address], [place] [address] Oct, [facility] [address] [id number] [address] [place] [address], [place] [address] Oct, [facility] [address] [id number] [address] [place] [address], [place] [address] 17 Oct, 2014 [facility] [address] [id number] [address] [place] [address], [place] [address] 15 Oct, 2014 [facility] [address] [id number] [address] [place] [address], [place] [address] Oct, [facility] [address] [id number] [address] [place] [address], [place] [address] Sep, [facility] [address] [id number] [address] [place] [address], [place] [address] 19 Sep, 2014 [facility] [address] [id number] [address] [place] [address], [place] [id number] 18 Sep, 2014 [facility] [address] [id number] [address] [place] [address], [place] [address] 18 Sep, 2014 [facility] [address] [id number] [address] [place] [address], [place] [address] 18 Sep, 2014 [facility] [address] [id number] [address] [place] [address], [place] [address] 18 Sep, 2014 [facility] [address] [id number] [address] [place] [address], [place] [address] 16 Aug, 2014 [facility] [address] [id number] [address] [place] [address], [place] [address] 16 Aug, 2014 [facility] [address] [id number] [address] [place] [address] [place] [address] Jul, [facility] [address] [id number] [address] [place] [address], [place] [address] Jul, [facility] [address] [id number] [address] [place] [address], [place] [address] Jun, [facility] [address] [id number] [address] [place] [address], [place] [address] Jun, [facility] [address] [id number] [address] [place] [address], [place] [address] May, [facility] [address] [id number] [address] [place] [address], [place] [address] May, [facility] [address] [id number] [address] [place] [address], [place] [address] Apr, [facility] [address] [id number] [address] [place] [address], [place] [address] Apr, [facility] [address] [id number] [address] [place] [address], [place] [address] Apr, [facility] [address] [id number] [address] [place] [address], [place] [address] Apr, [facility] [address] [id number] [address] [place] [address], [place] [address] March, [facility] [address] [id number] [address] [place] [address], [place] [address] March, [facility] [address] [id number] [address] [place] [address], [place] [address] Jan, [facility] [address] [id number] [address] [place] [address], [place] [address] Jan, [facility] [address] [id number] [address] [place] [address], [place] [address] Jan, [facility] [address] [id number] [address] [place] [address], [place] [address] Jan, [facility] [address] [id number] [address] [place] [address], [place] [address] Jan, [facility] [address] [id number] [address] [place] [address], [place] [address] Jan, [facility] [address] [id number] [address] [place] [address], [place] [address] Dec, [facility] [address] [id number] [address] [place] [address], [place] [address] Dec, [facility] [address] [id number] [address] [place] [address], [place] [address] Oct, [facility] [address] [id number] [address] [place] [address], [place] [address] Oct, [facility] [address] [id number] [address] [place] [address], [place] [address] Oct, [facility] [address] [id number] [address] [place] [address], [place] [address] Oct, [facility] [address] [id number] [address] [place] [address], [place] [address] Jul, [facility] [address] [id number] [address] [place] [address], [place] [address] Jul, [facility] [address] [id number] [address] [place] [address], [place] [address] Jul, [facility] [address] [id number] [address] [place] [address], [place] [address] Jun, [facility] [address] [id number] [address] [place] [address], [place] [address] Jun, [facility] [address] [id number] [address] [place] [address], [place] [address] May, [facility] [address] [id number] [address] [place] [address], [place] [address] May, [facility] [address] [id number] [address] [address] March, [facility] [address] [id number] [address] [place] [address], [place] [address] March, [facility] [address] [id number] [address] [place] [id number] Feb, [facility] [address] [id number] [address] [place] [phone] Feb, [facility] [address] [id number] [address] [place] [id number] Jan, [facility] [address] [id number] [address] [place] [address], [place] [address] Dec, [facility] [address] [id number] [address] [place] [id number] Dec, [facility] [address] [id number] [address] [place] [id number] 15 Dec, 2012 [facility] [address] [id number] [address] [place] [id number] 14 Dec, 2012 [facility] [address] [id number] [address] [place] [id number] Dec, [facility] [address] [id number] [address] [place] [id number] Nov, [facility] [address] [id number] [address] [place] [id number] Oct, [facility] [address] [id number] [address] [place] [id number] Oct, [facility] [address] [id number] [address] [place] [id number] Aug, [facility] [address] [id number] [address] [place] [phone] Aug, [facility] [address] [id number] [address] [place] [phone] Aug, [facility] [address] [id number] [address] [place] [address], [place] [address] Aug, [facility] [address] [id number] [address] [place] [address], [place] [address] Aug, [facility] [address] [id number] [address] [place] [address], [place] [address] Jul, [facility] [address] [id number] [address] [place] [address], [place] [address] Jul, [facility] [address] [id number] [address] [place] [address], [place] [address] Jun, [facility] [address] [id number] [address] [place] [address], [place] [address] Jun, [facility] [address] [id number] [address] [place] [address], [place] [address] May, [facility] [address] [id number] [address] [place] [address], [place] [address] May, [facility] [address] [id number] [address] [place] [address], [place] [address] May, [facility] [address] [id number] [address] [place] [address], [place] [address] Apr, [facility] [address] [id number] [address] [place] [address], [place] [id number] Apr, [facility] [address] [id number] [address] [place] [address], [place] [address] March, [facility] [address] [id number] [address] [place] [address], [place] [id number] March, [facility] [address] [id number] [address] [place] [address], [place] [id number] 18 Feb, 2012 [facility] [address] [id number] [address] [place] [address], [place] [id number] 17 Feb, 2012 [facility] [address] [id number] [address] [place] [address] [address] Feb, [facility] [place] [address] [facility] [address] [id number] [address] [place] [address] Feb, IMMUNIZATIONS No Known Immunizations SOCIAL HISTORY [...]
--- OUTSIDE RECORDS SUMMARY | 2020-06-17 08:50 | XMS REPORT ---
Author Author Barrie BUSTILLO Organization [facility] Address [address] [place] [address] Care Team Providers Care Operator Technician Name Role Phone BARRIE BUSTILLO Unavailable PROBLEMS Type Condition ICD9-CM Code EPH26-IC Code Onset Dates Condition S tatus SNOMED Code Problem Essential hypertension I10 Active 95770334 Problem Urinary hesitancy R39.11 Active 59 27378 Problem Obstructive sleep apnea G47.33 Active 55153393 Problem Controlled type 2 diabetes m ellitus without complication, without long- term current use of insulin E11.9 Active 462169527 Problem Primary insomnia F51.01 Active 397 2004 Problem 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 Acti ve 47634579 Problem Diabetes type 2, controlled E11.9 Ac tive 43677333 Problem 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.1 Active 053580404 Problem Acute superficial venous thrombosis of left lower extremit y I82.812 Active [id number] Problem Hesitancy of micturition R39.11 Activ e 4971981 Problem Benign prostatic hyperplasia with lower urinary tract symptoms N40.1 Active 425017670 ALLERGIES No Information ENCOUNTERS Encounter Location Date Diagnosis [place] [facility] [id number] [address] [place] [address] Apr, Exercise counseling Z71.82 [facility] [address] [facility] [id number] [address] [place] [address] March, Moderate episode of recurren t major depressive disorder F33.1 [facility] [address] [facility] [id number] [address] [place] [address] March, Moderate episode of recurren t major depressive disorder F33.1 [facility] [address] [facility] [id number] [address] [place] [address] March, Exercise counseling Z71.82 [facility] [address] [id number] [address] [place] [address] March, [facility] [address] [id number] [address] [place] [address] March, Exercise counseling Z71.82 [facility] [address] [facility] [id number] [address] [place] [address] March, Right otitis media with effu yousuf H65.91 ; 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 and Diabetes type 2, controlled E11.9 [facility] [address] [id number] [address] [place] [address] March, Moderate episode of recurren t major depressive disorder F33.1 [place] [address] [facility] [id number] [address] [place] [address] March, Exercise counseling Z71.82 [place] [address] [facility] [id number] [address] [place] [address] March, Exercise counseling Z71.82 [place] [address] [id number] [address] [place] [address] March, Callus of foot L84 [place] [address] [facility] [id number] [address] [place] [address] Feb, Moderate episode of recurren t major depressive disorder F33.1 [place] [address] [id number] [address] [place] [id number] Feb, [facility] [address] [facility] [id number] [address] [place] [address] Feb, Moderate episode of recurren t major depressive disorder F33.1 [facility] [address] [id number] [address] [place] [address] Feb, Diabetes type 2, controlled E11.9 and Essential hypertension I10 [facility] [address] [id number] [address] [place] [phone] Jan, [facility] [address] [id number] [address] [place] [address] Jan, Callus of foot L84 [facility] [address] [facility] [id number] [address] [place] [address] Jan, Moderate episode of recurren t major depressive disorder F33.1 [facility] [address] [facility] [id number] [address] [place] [id number] 05 Jan, 2019 Moderate episode of recurren t major depressive disorder F33.1 [facility] [address] [facility] [id number] [address] [place] [address] Dec, Moderate episode of recurren t major depressive disorder F33.1 [place] [address] [facility] [id number] [address] [place] [id number] 11 Dec, 2018 Candidiasis of the esophagus B37.81 [place] [address] [place] [id number] [address] [place] [id number] Dec, [facility] [address] [facility] [id number] [address] [place] [address] Dec, Fecal occult blood test posi tive R19.5 and Anemia, unspecified type D64.9 [place] [address] [place] [id number] [address] [place] [address] Nov, Stool color black K92.1 [place] [address] [place] [id number] [address] [place] [address] Nov, Stool color black K92.1 [place] [address] [facility] [id number] [address] [place] [address] Nov, Stool color black K92.1 [place] [address] [facility] [id number] [address] [place] [address] Nov, [place] [address] [facility] [id number] [address] [place] [address] Nov, Moderate episode of recurren t major depressive disorder F33.1 [place] [address] [facility] [id number] [address] [place] [address] Oct, Moderate episode of recurren t major depressive disorder F33.1 [place] [address] [id number] [address] [place] [id number] 18 Oct, 2018 Callus of foot L84 and Contr olled type 2 diabetes mellitus without complication, without long-term current use of insulin E11.9 [place] [address] [id number] [address] [place] [address] 10 Oct, 2018 Moderate episode of recurren t major depressive disorder F33.1 [place] [address] [id number] [address] [place] [id number] Aug, Mood disorder F39 [place] [address] [id number] [address] [place] [id number] 05 Aug, 2018 Encounter for immunization Z 23 [place] [address] [id number] [address] [place] [address] Jul, Moderate episode of recurren t major depressive disorder F33.1 [place] [address] [id number] [address] [place] [address] Jul, Moderate episode of recurren t major depressive disorder F33.1 [place] [address] [id number] [address] [place] [address] May, [place] [address] [id number] [address] [place] [address] May, Moderate episode of recurren t major depressive disorder F33.1 [place] [address] [id number] [address] [place] [address] May, Moderate episode of recurren t major depressive disorder F33.1 [place] [address] [id number] [address] [place] [address] Apr, Benign prostatic hyperplasia with lower urinary tract symptoms N40.1 and Hesitancy of micturition R39.11 [place] [address] [id number] [address] [place] [id number] Apr, Moderate episode of recurren t major depressive disorder F33.1 [facility] [address] [id number] [address] [place] [address] Apr, Unspecified mood [affective] disorder F39 and Primary insomnia F51.01 [facility] [address] [id number] [address] [place] [address] Apr, Primary insomnia F51.01 [facility] [address] [id number] [address] [place] [address] March, Foot callus L84 [facility] [address] [facility] [id number] [address] [place] [address] Feb, Medicare annual wellness vis it, initial Z00.00 [facility] [address] [facility] [id number] [address] [place] [address] Feb, Acute superficial venous thr ombosis of left lower extremity I82.812 [facility] [address] [facility] [id number] [address] [place] [id number] Feb, [facility] [address] [facility] [id number] [address] [place] [address] Feb, [facility] [address] [facility] [id number] [address] [place] [id number] Feb, Acute superficial venous thr ombosis of left lower extremity I82.812 [facility] [address] [facility] [id number] [address] [place] [id number] Feb, [facility] [address] [id number] [address] [place] [address] Feb, Other specified soft tissue disorders M79.89 and Pain in left leg M79.605 [facility] [address] [facility] [id number] [address] [place] [address] Jan, Obstructive sleep apnea G47. 33 [facility] [address] [facility] [id number] [address] [place] [address] Dec, Obstructive sleep apnea G47. 33 and Mood disorder F39 [facility] [address] [facility] [id number] [address] [place] [id number] Dec, [facility] [address] [facility] [id number] [address] [place] [id number] Dec, [facility] [address] [facility] [id number] [address] [place] [address] Nov, Diabetes type 2, controlled E11.9 [facility] [address] [facility] [id number] [address] [place] [id number] Nov, Encounter for immunization Z 23 [facility] [address] [facility] [id number] [address] [place] [id number] Nov, Primary insomnia F51.01 [facility] [address] [facility] [id number] [address] [place] [id number] 07 Oct, 2017 Medicare annual wellness vis it, subsequent Z00.00 and Mood disorder F39 [facility] [address] [facility] [id number] [address] [place] [id number] Sep, Mood disorder F39 [facility] [address] [facility] [id number] [address] [place] [address] Aug, Primary insomnia F51.01 and Urinary hesitancy R39.11 [facility] [address] [facility] [id number] [address] [place] [address] Aug, Primary insomnia F51.01 [facility] [address] [facility] [id number] [address] [place] [address] Jul, Diabetes type 2, controlled E11.9 ; Primary insomnia F51.01 and Mood disorder F39 [facility] [address] [id number] [id number] Jun, Mood disorder F39 [facility] [address] [id number] Monika ALCOCER S [id number] Jun, [facility] [address] [facility] [id number] [address] [place] [address] May, Nightmares F51.5 [facility] [address] [id number] [address] [place] [id number] May, Cognitive complaints R41.9 ; Unspecified mood [affective] disorder F39 and Primary insomnia F51.01 [facility] [address] [id number] [address] [place] [address] Apr, Mood disorder F39 and Primar y insomnia F51.01 [facility] [address] [id number] [address] [place] [id number] Apr, Cognitive complaints R41.9 a nd Unspecified mood [affective] disorder F39 [facility] [address] [id number] [address] [place] [address] Apr, Cognitive complaints R41.9 a nd Unspecified mood [affective] disorder F39 [facility] [address] [id number] [address] [place] [id number] March, [facility] [address] [id number] [address] [place] [id number] March, Diabetes type 2, controlled E11.9 and Essential hypertension I10 [facility] [address] [id number] [address] [place] [address] March, Primary insomnia F51.01 ; Di abetes type 2, controlled E11.9 and Pain in right shoulder M25.511 [facility] [address] [id number] [address] [place] [address] March, Cognitive complaints R41.9 a nd Unspecified mood [affective] disorder F39 [facility] [address] [id number] [address] [place] [id number] Feb, Other specified mental disor ders due to known physiological condition F06.8 [facility] [address] [id number] [address] [place] [address] Jan, [facility] [address] [id number] [address] [place] [address] Jan, [facility] [address] [id number] [address] [place] [address] Dec, Diabetes type 2, controlled E11.9 ; Hypertension, benign I10 and Mood disorder F39 [facility] [address] [facility] [id number] [address] [place] [id number] 08 Dec, 2016 Medicare annual wellness vis it, initial Z00.00 [facility] [address] [facility] [id number] [address] [place] [id number] 05 Nov, 2016 Medicare welcome exam Z00.00 ; Encounter for immunization Z23 ; Medicare annual wellness visit, initial Z00.00 and Medicare annual wellness visit, subsequent Z00.00 [place] [address] [facility] [id number] [address] [place] [id number] Oct, [facility] [address] [facility] [id number] [address] [place] [phone] Sep, [facility] [address] [place] [id number] [address] [place] [id number] Aug, Encounter for immunization Z 23 and Callus L84 [place] [address] [facility] [id number] [address] [place] [address] Aug, [facility] [address] [facility] [id number] [address] [place] [id number] Jul, Diabetes type 2, controlled E11.9 [facility] [address] [facility] [id number] [address] [place] [id number] Jul, Diabetes type 2, controlled E11.9 [facility] [address] [facility] [id number] [address] [place] [id number] Jun, [facility] [address] [facility] [id number] [address] [place] [address] Jun, Hypertension, benign I10 ; M ood disorder F39 and Diabetes type 2, controlled E11.9 [facility] [address] [facility] [id number] [address] [place] [phone] Jun, Mood disorder F39 [facility] [address] [id number] [address] [place] [address] May, [facility] [address] [id number] [address] [place] [address] May, Mood disorder F39 [facility] [address] [facility] [id number] [address] [place] [address] May, Mood disorder F39 [facility] [address] [id number] [address] [place] [address] Apr, Controlled type 2 diabetes m ellitus without complication, without long-term current use of insulin E11.9 ; Essential hypertension I10 and Pain in right shoulder M25.511 [facility] [address] [id number] [address] [place] [address] Apr, Mood disorder F39 [facility] [address] [id number] [address] [place] [address] Apr, Pre-op evaluation Z01.818 [facility] [address] [id number] [address] [place] [address] March, Mood disorder F39 [facility] [address] [id number] [address] [place] [address] Feb, [facility] [address] [id number] [address] [place] [address] Feb, Shoulder pain, right M25.511 [facility] [address] [id number] [address] [place] [id number] Feb, Shoulder pain, right M25.511 [facility] [address] [id number] [address] [place] [address] Feb, Shoulder pain, right M25.511 [facility] [address] [id number] [address] [place] [address] Feb, Shoulder pain, right M25.511 [facility] [address] [id number] [address] [place] [address] 30 Jan, 2016 Shoulder pain, right M25.511 [place] [address] [facility] [id number] [address] [place] [address] Jan, Shoulder pain, right M25.511 [place] [address] [facility] [id number] [address] [place] [id number] 16 Jan, 2016 [place] [address] [place] [id number] [address] [place] [id number] 14 Jan, 2016 Diabetes type 2, controlled E11.9 [place] [address] [facility] [id number] [address] [place] [address] Jan, Shoulder pain, right M25.511 ; Diabetes mellitus without mention of complication, type II or unspecified type, not stated as uncontrolled 250.00 and Diabetes type 2, controlled E11.9 [place] [address] [place] [id number] [address] [place] [address] Jan, [place] [address] [place] [id number] [address] [place] [address] Jan, [place] [address] [facility] [id number] [address] [place] [address] Dec, [place] [address] [place] [id number] [address] [place] [id number] Oct, Callus of foot L84 [place] [address] [address] Oct, Anxiety F41.9 ; Callus of fo ot L84 and Dysuria R30.0 [place] [address] [facility] [id number] [address] [place] [id number] Sep, Diabetes mellitus without me ntion of complication, type II or unspecified type, not stated as uncontrolled 250.00 [place] [address] [place] [id number] [address] [place] [id number] Aug, Diabetes mellitus without me ntion of complication, type II or unspecified type, not stated as uncontrolled 250.00 [place] [address] [id number] [address] [place] [id number] 22 Jul, 2015 [facility] [address] [id number] [address] [place] [id number] Jul, [facility] [address] [id number] [address] [place] [id number] Jul, Diabetes mellitus without me ntion of complication, type II or unspecified type, not stated as uncontrolled 250.00 ; Essential hypertension, benign 401.1 and Anxiety state, unspecified 300.00 [facility] [address] [id number] [address] [place] [id number] Jul, [facility] [address] [id number] [address] [place] [id number] Jun, [facility] [address] [id number] [address] [place] [id number] Jun, [facility] [address] [id number] [address] [place] [id number] May, [facility] [address] [id number] [address] [place] [id number] May, [facility] [address] [id number] [address] [place] [id number] Apr, [facility] [address] [id number] [address] [place] [id number] Apr, Mood disorder 296.90 [facility] [address] [id number] [address] [place] [id number] March, [facility] [address] [id number] [address] [place] [id number] Feb, [facility] [address] [id number] [address] [place] [id number] Feb, [facility] [address] [id number] [address] [place] [phone] Jan, [facility] [address] [id number] [address] [place] [address], [place] [address] Jan, [facility] [address] [id number] [address] [place] [address], [place] [id number] Jan, [facility] [address] [id number] [address] [place] [address], [place] [address] Jan, [facility] [address] [id number] [address] [place] [address], [place] [address] Jan, [facility] [address] [id number] [address] [place] [address], [place] [address] Jan, [facility] [address] [id number] [address] [place] [address], [place] [address] Jan, [facility] [address] [id number] [address] [place] [address], [place] [address] Jan, [facility] [address] [id number] [address] [place] [address], [place] [address] Dec, [facility] [address] [id number] [address] [place] [address], [place] [address] Dec, [facility] [address] [id number] [address] [place] [address], [place] [id number] Nov, [facility] [address] [id number] [address] [place] [address], [place] [address] Nov, [facility] [address] [id number] [address] [place] [address], [place] [address] Nov, [facility] [address] [id number] [address] [place] [address], [place] [address] Nov, [facility] [address] [id number] [address] [place] [address], [place] [address] Oct, [facility] [address] [id number] [address] [place] [address], [place] [address] Oct, [facility] [address] [id number] [address] [place] [address], [place] [address] Oct, [facility] [facility] [address] [id number] [address] [place] [address], [place] [address] Oct, [facility] [address] [id number] [address] [place] [address], [place] [address] Oct, [facility] [address] [id number] [address] [place] [address], [place] [address] Oct, [facility] [address] [id number] [address] [place] [address], [place] [address] Oct, [facility] [address] [id number] [address] [place] [address], [place] [address] 17 Oct, 2014 [facility] [address] [id number] [address] [place] [address], [place] [address] 15 Oct, 2014 [facility] [address] [id number] [address] [place] [address], [place] [address] Oct, [facility] [address] [id number] [address] [place] [address], [place] [address] Sep, [facility] [address] [id number] [address] [place] [address], [place] [address] 19 Sep, 2014 [facility] [address] [id number] [address] [place] [address], [place] [address] 18 Sep, 2014 [facility] [address] [id number] [address] [place] [address], [place] [address] 18 Sep, 2014 [facility] [address] [id number] [address] [place] [address], [place] [address] 18 Sep, 2014 [facility] [address] [id number] [address] [place] [address], [place] [address] 18 Sep, 2014 [facility] [address] [id number] [address] [place] [address], [place] [address] 16 Aug, 2014 [facility] [address] [id number] [address] [place] [address], [place] [address] 16 Aug, 2014 [facility] [address] [id number] [address] [place] [address] [place] [address] Jul, [facility] [address] [id number] [address] [place] [address], [place] [address] Jul, [facility] [address] [id number] [address] [place] [address], [place] [address] Jun, [facility] [address] [id number] [address] [place] [address], [place] [address] Jun, [facility] [address] [id number] [address] [place] [address], [place] [address] May, [facility] [address] [id number] [address] [place] [address], [place] [address] May, [facility] [address] [id number] [address] [place] [address], [place] [address] Apr, [facility] [address] [id number] [address] [place] [address], [place] [address] Apr, [facility] [address] [id number] [address] [place] [address], [place] [address] Apr, [facility] [address] [id number] [address] [place] [address], [place] [address] Apr, [facility] [address] [id number] [address] [place] [address], [place] [address] March, [facility] [address] [id number] [address] [place] [address], [place] [address] March, [facility] [address] [id number] [address] [place] [address], [place] [address] Jan, [facility] [address] [id number] [address] [place] [address], [place] [address] Jan, [facility] [address] [id number] [address] [place] [address], [place] [address] Jan, [facility] [address] [id number] [address] [place] [address], [place] [address] Jan, [facility] [address] [id number] [address] [place] [address], [place] [address] Jan, [facility] [address] [id number] [address] [place] [address], [place] [address] Jan, [facility] [address] [id number] [address] [place] [address], [place] [address] Dec, [facility] [address] [id number] [address] [place] [address], [place] [address] Dec, [facility] [address] [id number] [address] [place] [address], [place] [address] Oct, [facility] [address] [id number] [address] [place] [address], [place] [address] Oct, [facility] [address] [id number] [address] [place] [address], [place] [address] Oct, [facility] [address] [id number] [address] [place] [address], [place] [address] Oct, [facility] [address] [id number] [address] [place] [address], [place] [address] Jul, [facility] [address] [id number] [address] [place] [address], [place] [address] Jul, [facility] [address] [id number] [address] [place] [address], [place] [address] Jul, [facility] [address] [id number] [address] [place] [address], [place] [address] Jun, [facility] [address] [id number] [address] [place] [address], [place] [address] Jun, [facility] [address] [id number] [address] [place] [address], [place] [address] May, [facility] [address] [id number] [address] [place] [address], [place] [address] May, [facility] [address] [id number] [address] [address] March, [facility] [address] [id number] [address] [place] [address], [place] [address] March, [facility] [address] [id number] [address] [place] [address] Feb, [facility] [address] [id number] [address] [place] [address] Feb, [facility] [address] [id number] [address] [place] [address] Jan, [facility] [address] [id number] [address] [place] [address], [place] [address] Dec, [facility] [address] [id number] [address] [place] [address] Dec, [facility] [address] [id number] [address] [place] [address] 15 Dec, 2012 [facility] [address] [id number] [address] [place] [address] 14 Dec, 2012 [facility] [address] [id number] [address] [place] [address] Dec, [facility] [address] [id number] [address] [place] [address] Nov, [facility] [address] [id number] [address] [place] [address] Oct, [facility] [address] [id number] [address] [place] [address] Oct, [facility] [address] [id number] [address] [place] [address] Aug, [facility] [address] [id number] [address] [place] [address] Aug, [facility] [address] [id number] [address] [place] [address] Aug, [facility] [address] [id number] [address] [place] [address], [place] [address] Aug, [facility] [address] [id number] [address] [place] [address], [place] [address] Aug, [facility] [address] [id number] [address] [place] [address], [place] [address] Jul, [facility] [address] [id number] [address] [place] [address], [place] [address] Jul, [facility] [address] [id number] [address] [place] [address], [place] [address] Jun, [facility] [address] [id number] [address] [place] [address], [place] [address] Jun, [facility] [address] [id number] [address] [place] [address], [place] [address] May, [facility] [address] [id number] [address] [place] [address], [place] [address] May, [facility] [address] [id number] [address] [place] [address], [place] [address] May, [facility] [address] [id number] [address] [place] [address], [place] [address] Apr, [facility] [address] [id number] [address] [place] [address], [place] [address] Apr, [facility] [address] [id number] [address] [place] [address], [place] [address] March, [facility] [address] [id number] [address] [place] [address], [place] [address] March, [facility] [address] [id number] [address] [place] [address], [place] [address] 18 Feb, 2012 [facility] [address] [id number] [address] [place] [address], [place] [address] 17 Feb, 2012 [facility] [address] [id number] [address] [place] [address] [address] Feb, [facility] [address] [facility] [id number] [address] [place] [address] Feb, IMMUNIZATIONS No Known Immunizations SOCIAL HISTORY Never Assessed REASON FOR VISIT PLAN OF CARE VITAL SIGNS MEDICATIONS Unknown Medications RESULTS No Results PROCEDURES Procedure Date Ordered Result Body Site COMPLETE CBC W/AUTO DIFF WBC January 26, 2015 ASSAY OF PSA, TOTAL January 26, 2015 LIPID PANEL January 26, 2015 COMPREHEN METABOLIC PANEL January 26, 2015 VENIPUNCT, ROUTINE* January 26, 2015 INSTRUCTIONS MEDICATIONS ADMINISTERED No Known Medications [...]
--- OUTSIDE RECORDS SUMMARY | 2020-06-17 08:50 | XMS REPORT ---
Author Author Barrie BUSTILLO Organization [facility] Address [address] [place] [address] Care Team Providers Care Coal Getter Name Role Phone BARRIE BUSTILLO Unavailable PROBLEMS Type Condition ICD9-CM Code CSO59-ZN Code Onset Dates Condition S tatus SNOMED Code Problem Essential hypertension I10 Active 13821996 Problem Urinary hesitancy R39.11 Active 59 82894 Problem Obstructive sleep apnea G47.33 Active 41902128 Problem Controlled type 2 diabetes m ellitus without complication, without long- term current use of insulin E11.9 Active 353210072 Problem Primary insomnia F51.01 Active 397 2004 Problem 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 Acti ve 68554607 Problem Diabetes type 2, controlled E11.9 Ac tive 49762953 Problem 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.1 Active 204236775 Problem Acute superficial venous thrombosis of left lower extremit y I82.812 Active [id number] Problem Hesitancy of micturition R39.11 Activ e 7592522 Problem Benign prostatic hyperplasia with lower urinary tract symptoms N40.1 Active [id number] ALLERGIES No Information ENCOUNTERS Encounter Location Date Diagnosis [place] [address] [facility] [id number] [address] [place] [phone] Apr, Exercise counseling Z71.82 [facility] [address] [facility] [id number] [address] [place] [phone] March, Moderate episode of recurren t major depressive disorder F33.1 [facility] [address] [facility] [id number] [address] [place] [id number] March, Moderate episode of recurren t major depressive disorder F33.1 [facility] [address] [facility] [id number] [address] [place] [address] March, Exercise counseling Z71.82 [facility] [address] [id number] [address] [place] [phone] March, [facility] [address] [id number] [address] [place] [phone] March, Exercise counseling Z71.82 [facility] [address] [facility] [id number] [address] [place] [phone] March, Right otitis media with effu yousuf H65.91 ; 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 and Diabetes type 2, controlled E11.9 [facility] [address] [id number] [address] [place] [phone] March, Moderate episode of recurren t major depressive disorder F33.1 [place] [address] [facility] [id number] [address] [place] [phone] March, Exercise counseling Z71.82 [place] [address] [facility] [id number] [address] [place] [id number] March, Exercise counseling Z71.82 [place] [address] [id number] [address] [place] [address] March, Callus of foot L84 [place] [address] [facility] [id number] [address] [place] [phone] Feb, Moderate episode of recurren t major depressive disorder F33.1 [place] [address] [id number] [address] [place] [phone] Feb, [facility] [address] [facility] [id number] [address] [place] [phone] Feb, Moderate episode of recurren t major depressive disorder F33.1 [facility] [address] [id number] [address] [place] [id number] Feb, Diabetes type 2, controlled E11.9 and Essential hypertension I10 [facility] [address] [id number] [address] [place] [id number] Jan, [facility] [address] [id number] [address] [place] [phone] Jan, Callus of foot L84 [facility] [address] [facility] [id number] [address] [place] [phone] Jan, Moderate episode of recurren t major depressive disorder F33.1 [facility] [address] [facility] [id number] [address] [place] [phone] 05 Jan, 2019 Moderate episode of recurren t major depressive disorder F33.1 [facility] [address] [facility] [id number] [address] [place] [phone] Dec, Moderate episode of recurren t major depressive disorder F33.1 [place] [address] [facility] [id number] [address] [place] [id number] 11 Dec, 2018 Candidiasis of the esophagus B37.81 [place] [address] [place] [id number] [address] [place] [phone] Dec, [facility] [address] [facility] [id number] [address] [place] [phone] Dec, Fecal occult blood test posi tive R19.5 and Anemia, unspecified type D64.9 [place] [address] [place] [id number] [address] [place] [id number] Nov, Stool color black K92.1 [place] [address] [place] [id number] [address] [place] [phone] Nov, Stool color black K92.1 [place] [address] [facility] [id number] [address] [place] [phone] Nov, Stool color black K92.1 [place] [address] [facility] [id number] [address] [place] [id number] Nov, [place] [address] [facility] [id number] [address] [place] [phone] Nov, Moderate episode of recurren t major depressive disorder F33.1 [place] [address] [facility] [id number] [address] [place] [phone] Oct, Moderate episode of recurren t major depressive disorder F33.1 [place] [address] [id number] [address] [place] [phone] 18 Oct, 2018 Callus of foot L84 and Contr olled type 2 diabetes mellitus without complication, without long-term current use of insulin E11.9 [place] [address] [id number] [address] [place] [phone] 10 Oct, 2018 Moderate episode of recurren t major depressive disorder F33.1 [place] [address] [id number] [address] [place] [phone] Aug, Mood disorder F39 [place] [address] [id number] [address] [place] [phone] 05 Aug, 2018 Encounter for immunization Z 23 [place] [address] [id number] [address] [place] [phone] Jul, Moderate episode of recurren t major depressive disorder F33.1 [place] [address] [id number] [address] [place] [id number] Jul, Moderate episode of recurren t major depressive disorder F33.1 [place] [address] [id number] [address] [place] [phone] May, [place] [address] [id number] [address] [place] [phone] May, Moderate episode of recurren t major depressive disorder F33.1 [place] [address] [id number] [address] [place] [phone] May, Moderate episode of recurren t major depressive disorder F33.1 [place] [address] [id number] [address] [place] [id number] Apr, Benign prostatic hyperplasia with lower urinary tract symptoms N40.1 and Hesitancy of micturition R39.11 [place] [address] [id number] [address] [place] [address] Apr, Moderate episode of recurren t major depressive disorder F33.1 [facility] [address] [id number] [address] [place] [phone] Apr, Unspecified mood [affective] disorder F39 and Primary insomnia F51.01 [facility] [address] [id number] [address] [place] [id number] Apr, Primary insomnia F51.01 [facility] [address] [id number] [address] [place] [id number] March, Foot callus L84 [facility] [address] [facility] [id number] [address] [place] [phone] Feb, Medicare annual wellness vis it, initial Z00.00 [facility] [address] [facility] [id number] [address] [place] [phone] Feb, Acute superficial venous thr ombosis of left lower extremity I82.812 [facility] [address] [facility] [id number] [address] [place] [phone] Feb, [facility] [address] [facility] [id number] [address] [place] [id number] Feb, [facility] [address] [facility] [id number] [address] [place] [phone] Feb, Acute superficial venous thr ombosis of left lower extremity I82.812 [facility] [address] [facility] [id number] [address] [place] [phone] Feb, [facility] [address] [id number] [address] [place] [phone] Feb, Other specified soft tissue disorders M79.89 and Pain in left leg M79.605 [facility] [address] [facility] [id number] [address] [place] [id number] Jan, Obstructive sleep apnea G47. 33 [facility] [address] [facility] [id number] [address] [place] [id number] Dec, Obstructive sleep apnea G47. 33 and Mood disorder F39 [facility] [address] [facility] [id number] [address] [place] [phone] Dec, [facility] [address] [facility] [id number] [address] [place] [phone] Dec, [facility] [address] [facility] [id number] [address] [place] [phone] Nov, Diabetes type 2, controlled E11.9 [facility] [address] [facility] [id number] [address] [place] [phone] Nov, Encounter for immunization Z 23 [facility] [address] [facility] [id number] [address] [place] [id number] Nov, Primary insomnia F51.01 [facility] [address] [facility] [id number] [address] [place] [phone] 07 Oct, 2017 Medicare annual wellness vis it, subsequent Z00.00 and Mood disorder F39 [facility] [address] [facility] [id number] [address] [place] [id number] Sep, Mood disorder F39 [facility] [address] [facility] [id number] [address] [place] [phone] Aug, Primary insomnia F51.01 and Urinary hesitancy R39.11 [facility] [address] [facility] [id number] [address] [place] [id number] Aug, Primary insomnia F51.01 [facility] [address] [facility] [id number] [address] [place] [id number] Jul, Diabetes type 2, controlled E11.9 ; Primary insomnia F51.01 and Mood disorder F39 [facility] [address] [id number] [id number] Jun, Mood disorder F39 [facility] [address] [id number] Monika ALCOCER S [id number] Jun, [facility] [address] [facility] [id number] [address] [place] [phone] May, Nightmares F51.5 [facility] [address] [id number] [address] [place] [id number] May, Cognitive complaints R41.9 ; Unspecified mood [affective] disorder F39 and Primary insomnia F51.01 [facility] [address] [id number] [address] [place] [id number] Apr, Mood disorder F39 and Primar y insomnia F51.01 [facility] [address] [id number] [address] [place] [id number] Apr, Cognitive complaints R41.9 a nd Unspecified mood [affective] disorder F39 [facility] [address] [id number] [address] [place] [id number] Apr, Cognitive complaints R41.9 a nd Unspecified mood [affective] disorder F39 [facility] [address] [id number] [address] [place] [phone] March, [facility] [address] [id number] [address] [place] [phone] March, Diabetes type 2, controlled E11.9 and Essential hypertension I10 [facility] [address] [id number] [address] [place] [phone] March, Primary insomnia F51.01 ; Di abetes type 2, controlled E11.9 and Pain in right shoulder M25.511 [facility] [address] [id number] [address] [place] [id number] March, Cognitive complaints R41.9 a nd Unspecified mood [affective] disorder F39 [facility] [address] [id number] [address] [place] [phone] Feb, Other specified mental disor ders due to known physiological condition F06.8 [facility] [address] [id number] [address] [place] [id number] Jan, [facility] [address] [id number] [address] [place] [id number] Jan, [facility] [address] [id number] [address] [place] [id number] Dec, Diabetes type 2, controlled E11.9 ; Hypertension, benign I10 and Mood disorder F39 [facility] [address] [facility] [id number] [address] [place] [phone] 08 Dec, 2016 Medicare annual wellness vis it, initial Z00.00 [facility] [address] [facility] [id number] [address] [place] [phone] 05 Nov, 2016 Medicare welcome exam Z00.00 ; Encounter for immunization Z23 ; Medicare annual wellness visit, initial Z00.00 and Medicare annual wellness visit, subsequent Z00.00 [place] [address] [facility] [id number] [address] [place] [id number] Oct, [facility] [address] [facility] [id number] [address] [place] [phone] Sep, [facility] [address] [place] [id number] [address] [place] [id number] Aug, Encounter for immunization Z 23 and Callus L84 [place] [address] [facility] [id number] [address] [place] [id number] Aug, [facility] [address] [facility] [id number] [address] [place] [id number] Jul, Diabetes type 2, controlled E11.9 [facility] [address] [facility] [id number] [address] [place] [id number] Jul, Diabetes type 2, controlled E11.9 [facility] [address] [facility] [id number] [address] [place] [id number] Jun, [facility] [address] [facility] [id number] [address] [place] [phone] Jun, Hypertension, benign I10 ; M ood disorder F39 and Diabetes type 2, controlled E11.9 [facility] [address] [facility] [id number] [address] [place] [id number] Jun, Mood disorder F39 [facility] [address] [id number] [address] [place] [phone] May, [facility] [address] [id number] [address] [place] [phone] May, Mood disorder F39 [facility] [address] [facility] [id number] [address] [place] [phone] May, Mood disorder F39 [facility] [address] [id number] [address] [place] [id number] Apr, Controlled type 2 diabetes m ellitus without complication, without long-term current use of insulin E11.9 ; Essential hypertension I10 and Pain in right shoulder M25.511 [facility] [address] [id number] [address] [place] [address] Apr, Mood disorder F39 [facility] [address] [id number] [address] [place] [address] Apr, Pre-op evaluation Z01.818 [facility] [address] [id number] [address] [place] [id number] March, Mood disorder F39 [facility] [address] [id number] [address] [place] [id number] Feb, [facility] [address] [id number] [address] [place] [address] Feb, Shoulder pain, right M25.511 [facility] [address] [id number] [address] [place] [address] Feb, Shoulder pain, right M25.511 [facility] [address] [id number] [address] [place] [id number] Feb, Shoulder pain, right M25.511 [facility] [address] [id number] [address] [place] [id number] Feb, Shoulder pain, right M25.511 [facility] [address] [id number] [address] [place] [phone] 30 Jan, 2016 Shoulder pain, right M25.511 [place] [address] [facility] [id number] [address] [place] [id number] Jan, Shoulder pain, right M25.511 [place] [address] [facility] [id number] [address] [place] [id number] 16 Jan, 2016 [place] [address] [place] [id number] [address] [place] [id number] 14 Jan, 2016 Diabetes type 2, controlled E11.9 [place] [address] [facility] [id number] [address] [place] [id number] Jan, Shoulder pain, right M25.511 ; Diabetes mellitus without mention of complication, type II or unspecified type, not stated as uncontrolled 250.00 and Diabetes type 2, controlled E11.9 [place] [address] [place] [id number] [address] [place] [phone] Jan, [place] [address] [place] [id number] [address] [place] [id number] Jan, [place] [address] [facility] [id number] [address] [place] [phone] Dec, [place] [address] [place] [id number] [address] [place] [phone] Oct, Callus of foot L84 [place] [address] [id number] Oct, Anxiety F41.9 ; Callus of fo ot L84 and Dysuria R30.0 [place] [address] [facility] [id number] [address] [place] [address] Sep, Diabetes mellitus without me ntion of complication, type II or unspecified type, not stated as uncontrolled 250.00 [place] [address] [place] [id number] [address] [place] [id number] Aug, Diabetes mellitus without me ntion of complication, type II or unspecified type, not stated as uncontrolled 250.00 [place] [address] [id number] [address] [place] [id number] 22 Jul, 2015 [facility] [address] [id number] [address] [place] [phone] Jul, [facility] [address] [id number] [address] [place] [id number] Jul, Diabetes mellitus without me ntion of complication, type II or unspecified type, not stated as uncontrolled 250.00 ; Essential hypertension, benign 401.1 and Anxiety state, unspecified 300.00 [facility] [address] [id number] [address] [place] [id number] Jul, [facility] [address] [id number] [address] [place] [id number] Jun, [facility] [address] [id number] [address] [place] [id number] Jun, [facility] [address] [id number] [address] [place] [id number] May, [facility] [address] [id number] [address] [place] [phone] May, [facility] [address] [id number] [address] [place] [id number] Apr, [facility] [address] [id number] [address] [place] [id number] Apr, Mood disorder 296.90 [facility] [address] [id number] [address] [place] [id number] March, [facility] [address] [id number] [address] [place] [id number] Feb, [facility] [address] [id number] [address] [place] [address] Feb, [facility] [address] [id number] [address] [place] [phone] Jan, [facility] [address] [id number] [address] [place] [address], [place] [address] Jan, [facility] [address] [id number] [address] [place] [address], [place] [address] Jan, [facility] [address] [id number] [address] [place] [address], [place] [phone] Jan, [facility] [address] [id number] [address] [place] [address], [place] [address] Jan, [facility] [address] [id number] [address] [place] [address], [place] [address] Jan, [facility] [address] [id number] [address] [place] [address], [place] [address] Jan, [facility] [address] [id number] [address] [place] [address], [place] [address] Jan, [facility] [address] [id number] [address] [place] [address], [place] [address] Dec, [facility] [address] [id number] [address] [place] [address], [place] [address] Dec, [facility] [address] [id number] [address] [place] [address], [place] [address] Nov, [facility] [address] [id number] [address] [place] [address], [place] [address] Nov, [facility] [address] [id number] [address] [place] [address], [place] [address] Nov, [facility] [address] [id number] [address] [place] [address], [place] [address] Nov, [facility] [address] [id number] [address] [place] [address], [place] [address] Oct, [facility] [address] [id number] [address] [place] [address], [place] [address] Oct, [facility] [address] [id number] [address] [place] [address], [place] [address] Oct, [facility] [address] [id number] [address] [place] [address], [place] [address] Oct, [facility] [address] [id number] [address] [place] [address], [place] [address] Oct, [facility] [address] [id number] [address] [place] [address], [place] [address] Oct, [facility] [address] [id number] [address] [place] [address], [place] [id number] Oct, [facility] [address] [id number] [address] [place] [address], [place] [id number] 17 Oct, 2014 [facility] [address] [id number] [address] [place] [address], [place] [id number] 15 Oct, 2014 [facility] [address] [id number] [address] [place] [address], [place] [id number] Oct, [facility] [address] [id number] [address] [place] [address], [place] [address] Sep, [facility] [address] [id number] [address] [place] [address], [place] [address] 19 Sep, 2014 [facility] [address] [id number] [address] [place] [address], [place] [address] 18 Sep, 2014 [facility] [address] [id number] [address] [place] [address], [place] [address] 18 Sep, 2014 [facility] [address] [id number] [address] [place] [address], [place] [address] 18 Sep, 2014 [facility] [address] [id number] [address] [place] [address], [place] [address] 18 Sep, 2014 [facility] [address] [id number] [address] [place] [address], [place] [address] 16 Aug, 2014 [facility] [address] [id number] [address] [place] [address], [place] [address] 16 Aug, 2014 [facility] [address] [id number] [address] [place] [address] [place] [address] Jul, [facility] [address] [id number] [address] [place] [address], [place] [address] Jul, [facility] [address] [id number] [address] [place] [address], [place] [address] Jun, [facility] [address] [id number] [address] [place] [address], [place] [address] Jun, [facility] [address] [id number] [address] [place] [address], [place] [address] May, [facility] [address] [id number] [address] [place] [address], [place] [address] May, [facility] [address] [id number] [address] [place] [address], [place] [address] Apr, [facility] [address] [id number] [address] [place] [address], [place] [address] Apr, [facility] [address] [id number] [address] [place] [address], [place] [address] Apr, [facility] [address] [id number] [address] [place] [address], [place] [address] Apr, [facility] [address] [id number] [address] [place] [address], [place] [address] March, [facility] [address] [id number] [address] [place] [address], [place] [address] March, [facility] [address] [id number] [address] [place] [address], [place] [address] Jan, [facility] [address] [id number] [address] [place] [address], [place] [address] Jan, [facility] [address] [id number] [address] [place] [address], [place] [address] Jan, [facility] [address] [id number] [address] [place] [address], [place] [address] Jan, [facility] [address] [id number] [address] [place] [address], [place] [address] Jan, [facility] [address] [id number] [address] [place] [address], [place] [address] Jan, [facility] [address] [id number] [address] [place] [address], [place] [address] Dec, [facility] [address] [id number] [address] [place] [address], [place] [address] Dec, [facility] [address] [id number] [address] [place] [address], [place] [address] Oct, [facility] [address] [id number] [address] [place] [address], [place] [address] Oct, [facility] [address] [id number] [address] [place] [address], [place] [address] Oct, [facility] [address] [id number] [address] [place] [address], [place] [address] Oct, [facility] [address] [id number] [address] [place] [address], [place] [address] Jul, [facility] [address] [id number] [address] [place] [address], [place] [address] Jul, [facility] [address] [id number] [address] [place] [address], [place] [address] Jul, [facility] [address] [id number] [address] [place] [address], [place] [address] Jun, [facility] [address] [id number] [address] [place] [address], [place] [address] Jun, [facility] [address] [id number] [address] [place] [address], [place] [address] May, [facility] [address] [id number] [address] [place] [address], [place] [address] May, [facility] [address] [id number] [address] [address] March, [facility] [address] [id number] [address] [place] [address], [place] [address] March, [facility] [address] [id number] [address] [place] [address] Feb, [facility] [address] [id number] [address] [place] [address] Feb, [facility] [address] [id number] [address] [place] [address] Jan, [facility] [address] [id number] [address] [place] [address], [place] [address] Dec, [facility] [address] [id number] [address] [place] [id number] Dec, [facility] [address] [id number] [address] [place] [id number] 15 Dec, 2012 [facility] [address] [id number] [address] [place] [id number] 14 Dec, 2012 [facility] [address] [id number] [address] [place] [id number] Dec, [facility] [address] [id number] [address] [place] [address] Nov, [facility] [address] [id number] [address] [place] [address] Oct, [facility] [address] [id number] [address] [place] [address] Oct, [facility] [address] [id number] [address] [place] [id number] Aug, [facility] [address] [id number] [address] [place] [address] Aug, [facility] [address] [id number] [address] [place] [id number] Aug, [facility] [address] [id number] [address] [place] [address], [place] [address] Aug, [facility] [address] [id number] [address] [place] [address], [place] [address] Aug, [facility] [address] [id number] [address] [place] [address], [place] [address] Jul, [facility] [address] [id number] [address] [place] [address], [place] [address] Jul, [facility] [address] [id number] [address] [place] [address], [place] [address] Jun, [facility] [address] [id number] [address] [place] [address], [place] [address] Jun, [facility] [address] [id number] [address] [place] [address], [place] [address] May, [facility] [address] [id number] [address] [place] [address], [place] [address] May, [facility] [address] [id number] [address] [place] [address], [place] [address] May, [facility] [address] [id number] [address] [place] [address], [place] [address] Apr, [facility] [address] [id number] [address] [place] [address], [place] [address] Apr, [facility] [address] [id number] [address] [place] [address], [place] [address] March, [facility] [address] [id number] [address] [place] [address], [place] [address] March, [facility] [address] [id number] [address] [place] [address], [place] [address] 18 Feb, 2012 [facility] [address] [id number] [address] [place] [address], [place] [address] 17 Feb, 2012 [facility] [address] [id number] [address] [place], [place] [address] [address] Feb, [facility] [address] [facility] [id number] [address] [place] [address] Feb, IMMUNIZATIONS No Known Immunizations SOCIAL HISTORY [...]
--- OUTSIDE RECORDS SUMMARY | 2020-06-17 08:51 | XMS REPORT ---
Author Author Barrie Wisdom Doctor Organization [facility] Address Unknown Phone Unavailable Care Team Providers Care Forest Fire Officer Name Role Phone Migration, Doctor Unavailable Unavailable PROBLEMS Type Condition ICD9-CM Code [id number] Code Onset Dates Condition S tatus SNOMED Code Problem Essential hypertension I10 Active 13827219 Problem Urinary hesitancy R39.11 Active 59 67972 Problem Obstructive sleep apnea G47.33 Active 27544305 Problem Controlled type 2 diabetes m ellitus without complication, without long- term current use of insulin E11.9 Active 643677429 Problem Primary insomnia F51.01 Active 397 2004 Problem 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 Acti ve 33999582 Problem Diabetes type 2, controlled E11.9 Ac tive 59042851 Problem 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.1 Active 288646257 Problem Acute superficial venous thrombosis of left lower extremit y I82.812 Active [id number] Problem Hesitancy of micturition R39.11 Activ e 1934058 Problem Benign prostatic hyperplasia with lower urinary tract symptoms N40.1 Active 388552392 ALLERGIES No Information ENCOUNTERS Encounter Location Date Diagnosis [facility] [address] [facility] [id number] [place] [phone] Apr, [facility] [address] [facility] [id number] [place] [phone] Apr, [facility] [address] [place] [id number] [address] [place] [phone] March, [facility] [address] [facility] [id number] [place] [phone] March, [facility] [address] [id number] [address] [place] [phone] March, [facility] [address] [id number] [address] [place] [phone] March, Exercise counseling Z71.82 [facility] [address] [id number] [address] [place] [phone] March, Right otitis media with effu yousuf H65.91 ; 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 and Diabetes type 2, controlled E11.9 [facility] [address] [id number] [address] [place] [address] March, Moderate episode of recurren t major depressive disorder F33.1 [facility] [address] [id number] [address] [place] [address] March, Exercise counseling Z71.82 [place] [address] [id number] [address] [place] [address] March, Exercise counseling Z71.82 [place] [address] [id number] [address] [place] [phone] March, Callus of foot L84 [place] [address] [id number] [address] [place] [phone] Feb, Moderate episode of recurren t major depressive disorder F33.1 [facility] [address] [id number] [address] [place] [phone] Feb, [place] [address] [id number] [address] [place] [phone] Feb, Moderate episode of recurren t major depressive disorder F33.1 [place] [id number] [id number] [address] [place] [phone] Feb, Diabetes type 2, controlled E11.9 and Essential hypertension I10 [facility] [address] [id number] [address] [place] [phone] Jan, [place] [address] [id number] [address] [place] [phone] Jan, Callus of foot L84 [facility] [address] [facility] [id number] [place] [phone] Jan, Moderate episode of recurren t major depressive disorder F33.1 [facility] [address] [facility] [id number] [place] [phone] Jan, Moderate episode of recurren t major depressive disorder F33.1 [facility] [address] [facility] [id number] [place] [phone] 26 Dec, 2018 Moderate episode of recurren t major depressive disorder F33.1 [facility] [address] [facility] [id number] [place] [phone] 11 Dec, 2018 Candidiasis of the esophagus B37.81 [facility] [address] [facility] [id number] [place] [phone] Dec, [facility] [address] [facility] [id number] [place] [phone] 04 Dec, 2018 Fecal occult blood test posi tive R19.5 and Anemia, unspecified type D64.9 [place] [address] [facility] [id number] [place] [address] Nov, Stool color black K92.1 [place] [address] [facility] [id number] [place] [phone] Nov, Stool color black K92.1 [place] [address] [facility] [id number] [place] [phone] Nov, Stool color black K92.1 [place] [address] [facility] [id number] [place] [phone] Nov, [facility] [address] [facility] [id number] [place] [address] Nov, Moderate episode of recurren t major depressive disorder F33.1 [place] [address] [facility] [id number] [place] [address] Oct, Moderate episode of recurren t major depressive disorder F33.1 [facility] [address] [facility] [id number] [place] [address] Oct, Callus of foot L84 and Contr olled type 2 diabetes mellitus without complication, without long-term current use of insulin E11.9 [facility] [address] [id number] [address] [place] [phone] 10 Oct, 2018 Moderate episode of recurren t major depressive disorder F33.1 [facility] [address] [id number] [address] [place] [phone] 17 Aug, 2018 Mood disorder F39 [place] [address] [id number] [address] [place] [phone] 05 Aug, 2018 Encounter for immunization Z 23 [facility] [address] [id number] [address] [place] [phone] 26 Jul, 2018 Moderate episode of recurren t major depressive disorder F33.1 [place] [address] [id number] [address] [place] [phone] 24 Jul, 2018 Moderate episode of recurren t major depressive disorder F33.1 [place] [address] [id number] [address] [place] [address] May, [place] [address] [id number] [address] [place] [phone] May, Moderate episode of recurren t major depressive disorder F33.1 [facility] [address] [id number] [address] [place] [address] May, Moderate episode of recurren t major depressive disorder F33.1 [place] [address] [id number] [address] [place] [address] Apr, Benign prostatic hyperplasia with lower urinary tract symptoms N40.1 and Hesitancy of micturition R39.11 [place] [address] [id number] [address] [place] [address] Apr, Moderate episode of recurren t major depressive disorder F33.1 [facility] [address] [id number] [address] [place] [address] Apr, Unspecified mood [affective] disorder F39 and Primary insomnia F51.01 [facility] [address] [id number] [address] [place] [address] Apr, Primary insomnia F51.01 [facility] [address] [facility] [id number] [place] [address] March, Foot callus L84 [facility] [address] [facility] [id number] [place] [address] Feb, Medicare annual wellness vis it, initial Z00.00 [facility] [address] [id number] [address] [place] [phone] Feb, Acute superficial venous thr ombosis of left lower extremity I82.812 [facility] [address] [facility] [id number] [place] [phone] Feb, [facility] [address] [facility] [id number] [place] [address] Feb, [facility] [address] [facility] [id number] [place] [address] Feb, Acute superficial venous thr ombosis of left lower extremity I82.812 [facility] [address] [facility] [id number] [place] [address] Feb, [facility] [address] [facility] [id number] [place] [address] Feb, Other specified soft tissue disorders M79.89 and Pain in left leg M79.605 [facility] [address] [facility] [id number] [place] [phone] Jan, Obstructive sleep apnea G47. 33 [facility] [address] [facility] [id number] [place] [phone] Dec, Obstructive sleep apnea G47. 33 and Mood disorder F39 [facility] [address] [facility] [id number] [place] [address] Dec, [facility] [address] [facility] [id number] [place] [phone] Dec, [facility] [address] [facility] [id number] [place] [phone] Nov, Diabetes type 2, controlled E11.9 [facility] [address] [facility] [id number] [place] [phone] Nov, Encounter for immunization Z 23 [facility] [address] [facility] [id number] [place] [phone] Nov, Primary insomnia F51.01 [facility] [address] [facility] [id number] [place] [phone] 07 Oct, 2017 Medicare annual wellness vis it, subsequent Z00.00 and Mood disorder F39 [facility] [address] [facility] [id number] [place] [phone] Sep, Mood disorder F39 [place] [address] [facility] [id number] [place] [address] Aug, Primary insomnia F51.01 and Urinary hesitancy R39.11 [facility] [address] [facility] [id number] [place] [address] Aug, Primary insomnia F51.01 [facility] [address] [facility] [id number] [place] [address] 07 Jul, 2017 Diabetes type 2, controlled E11.9 ; Primary insomnia F51.01 and Mood disorder F[address] [place] [address] [id number] [id number] Jun, Mood disorder F39 [facility] [address] [id number] [id number] Jun, [facility] [address] [facility] [id number] [place] [address] May, Nightmares F51.5 [facility] [address] [facility] [id number] [place] [address] May, Cognitive complaints R41.9 ; Unspecified mood [affective] disorder F39 and Primary insomnia F51.01 [facility] [address] [id number] [address] [place] [address] Apr, Mood disorder F39 and Primar y insomnia F51.01 [facility] [address] [facility] [id number] [place] [phone] Apr, Cognitive complaints R41.9 a nd Unspecified mood [affective] disorder F39 [facility] [address] [facility] [id number] [place] [phone] Apr, Cognitive complaints R41.9 a nd Unspecified mood [affective] disorder F39 [facility] [address] [id number] [address] [place] [address] March, [facility] [address] [facility] [id number] [place] [address] March, Diabetes type 2, controlled E11.9 and Essential hypertension I10 [facility] [address] [facility] [id number] [place] [address] March, Primary insomnia F51.01 ; Di abetes type 2, controlled E11.9 and Pain in right shoulder M25.511 [facility] [address] [facility] [id number] [place] [address] March, Cognitive complaints R41.9 a nd Unspecified mood [affective] disorder F39 [facility] [address] [facility] [id number] [place] [address] Feb, Other specified mental disor ders due to known physiological condition F06.8 [facility] [address] [id number] [address] [place] [phone] Jan, [facility] [address] [facility] [id number] [place] [phone] Jan, [facility] [address] [facility] [id number] [place] [address] Dec, Diabetes type 2, controlled E11.9 ; Hypertension, benign I10 and Mood disorder F39 [facility] [address] [id number] [address] [place] [phone] 08 Dec, 2016 Medicare annual wellness vis it, initial Z00.00 [facility] [address] [facility] [id number] [place] [address] 05 Nov, 2016 Medicare welcome exam Z00.00 ; Encounter for immunization Z23 ; Medicare annual wellness visit, initial Z00.00 and Medicare annual wellness visit, subsequent Z00.00 [facility] [address] [id number] [address] [place] [phone] 08 Oct, 2016 [facility] [address] [id number] [address] [place] [phone] Sep, [facility] [address] [facility] [id number] [place] [phone] Aug, Encounter for immunization Z 23 and Callus L84 [facility] [address] [facility] [id number] [place] [phone] Aug, [facility] [address] [id number] [address] [place] [address] Jul, Diabetes type 2, controlled E11.9 [facility] [address] [facility] [id number] [place] [address] Jul, Diabetes type 2, controlled E11.9 [facility] [address] [id number] [address] [place] [phone] Jun, [facility] [address] [facility] [id number] [place] [address] Jun, Hypertension, benign I10 ; M ood disorder F39 and Diabetes type 2, controlled E11.9 [facility] [address] [id number] [address] [place] [address] Jun, Mood disorder F39 [facility] [address] [facility] [id number] [place] [phone] May, [facility] [address] [facility] [id number] [place] [address] May, Mood disorder F39 [facility] [address] [id number] [address] [place] [address] May, Mood disorder F39 [facility] [address] [id number] [address] [place] [address] Apr, Controlled type 2 diabetes m ellitus without complication, without long-term current use of insulin E11.9 ; Essential hypertension I10 and Pain in right shoulder M25.511 [facility] [address] [id number] [address] [place] [address] Apr, Mood disorder F39 [facility] [address] [id number] [address] [place] [address] Apr, Pre-op evaluation Z01.818 [facility] [address] [id number] [address] [place] [address] March, Mood disorder F39 [facility] [address] [id number] [address] [place] [phone] Feb, [facility] [address] [id number] [address] [place] [address] Feb, Shoulder pain, right M25.511 [facility] [address] [id number] [address] [place] [address] Feb, Shoulder pain, right M25.511 [facility] [address] [id number] [address] [place] [address] Feb, Shoulder pain, right M25.511 [facility] [address] [id number] [address] [place] [address] Feb, Shoulder pain, right M25.511 [facility] [address] [id number] [address] [place] [address] Jan, Shoulder pain, right M25.511 [facility] [address] [id number] [address] [place] [address] Jan, Shoulder pain, right M25.511 [place] [address] [facility] [id number] [place] [address] 16 Jan, 2016 [facility] [address] [place] [id number] [address] [place] [address] Jan, Diabetes type 2, controlled E11.9 [facility] [address] [place] [id number] [address] [place] [address] Jan, Shoulder pain, right M25.511 ; Diabetes mellitus without mention of complication, type II or unspecified type, not stated as uncontrolled 250.00 and Diabetes type 2, controlled E11.9 [place] [address] [facility] [id number] [place] [phone] Jan, [place] [address] [place] [id number] [address] [place] [address] Jan, [place] [address] [place] [id number] [place] [phone] Dec, [place] [address] [place] [id number] [address] [place] [phone] Oct, Callus of foot L84 [place] [address] [address] Oct, Anxiety F41.9 ; Callus of fo ot L84 and Dysuria R30.0 [place] [address] [place] [id number] [address] [place] [phone] Sep, Diabetes mellitus without me ntion of complication, type II or unspecified type, not stated as uncontrolled 250.00 [place] [address] [facility] [id number] [place] [address] Aug, Diabetes mellitus without me ntion of complication, type II or unspecified type, not stated as uncontrolled 250.00 [facility] [address] [facility] [id number] [place] [phone] Jul, [place] [address] [place] [id number] [place] [phone] Jul, [facility] [address] [id number] [address] [place] [phone] Jul, Diabetes mellitus without me ntion of complication, type II or unspecified type, not stated as uncontrolled 250.00 ; Essential hypertension, benign 401.1 and Anxiety state, unspecified 300.00 [facility] [address] [id number] [address] [place] [phone] Jul, [facility] [address] [id number] [address] [place] [phone] Jun, [facility] [address] [id number] [address] [place] [phone] Jun, [facility] [address] [id number] [address] [place] [phone] May, [facility] ([facility] [address] [id number] [address] [place] [id number] May, [facility] ([facility] [address] [id number] [address] [place] [phone] Apr, [facility] ([facility] [address] [id number] [address] [place] [phone] Apr, Mood disorder 296.90 [facility] [address] [facility] [id number] [place] [id number] March, [facility] ([facility] [address] [facility] [id number] [place] [phone] Feb, [facility] ([facility] [address] [id number] [address] [place] [id number] Feb, [facility] ([facility] [address] [id number] [address] [place] [id number] Jan, [facility] ([facility] [address] [id number] [address] [place] [id number] Jan, [facility] [address] [facility] [id number] [place] [phone] Jan, [facility] [address] [id number] [address] [place] [address], [place] [address] Jan, [facility] [address] [id number] [address] [place] [address], [place] [id number] Jan, [facility] [address] [id number] [address] [place] [address], [place] [address] Jan, [facility] [address] [id number] [address] [place] [address], [place] [address] Jan, [facility] [address] [id number] [address] [place] [address], [place] [address] Jan, [facility] [address] [id number] [address] [place] [address], [place] [address] Dec, [facility] [address] [id number] [address] [place] [address], [place] [address] Dec, [facility] [address] [id number] [address] [place] [address], [place] [address] Nov, [facility] [address] [id number] [address] [place] [address], [place] [address] Nov, [facility] [address] [id number] [address] [place] [address], [place] [address] Nov, [facility] [address] [id number] [address] [place] [address], [place] [address] Nov, [facility] [address] [id number] [address] [place] [address], [place] [address] Oct, [facility] [address] [id number] [address] [place] [address], [place] [address] Oct, [facility] [address] [id number] [address] [place] [address], [place] [address] Oct, [facility] [address] [id number] [address] [place] [address], [place] [address] Oct, [facility] [address] [id number] [address] [place] [address], [place] [address] Oct, 2014 [facility] [address] [id number] [address] [place] [address], [place] [address] 24 Oct, 2014 [facility] [address] [id number] [address] [place] [address], [place] [address] 17 Oct, 2014 [facility] [address] [id number] [address] [place] [address], [place] [address] 17 Oct, 2014 [facility] [address] [id number] [address] [place] [address], [place] [address] 15 Oct, 2014 [facility] [address] [id number] [address] [place] [address], [place] [address] 15 Oct, 2014 [facility] [address] [id number] [address] [place] [address], [place] [address] Sep, [facility] [address] [id number] [address] [place] [address], [place] [address] Sep, [facility] [address] [id number] [address] [place] [address], [place] [address] 18 Sep, 2014 [facility] [address] [id number] [address] [place] [address], [place] [address] 18 Sep, 2014 [facility] [address] [id number] [address] [place] [address], [place] [address] 18 Sep, 2014 [facility] [address] [id number] [address] [place] [address], [place] [address] 18 Sep, 2014 [facility] [address] [id number] [address] [place] [address] 16 Aug, 2014 [facility] [address] [id number] [address] [place] [address], [place] [address] 16 Aug, 2014 [facility] [address] [id number] [address] [place] [address], [place] [address] 19 Jul, 2014 [facility] [address] [id number] [address] [place] [address], [place] [address] 19 Jul, 2014 [facility] [address] [id number] [facility] [address] Jun, [facility] [address] [id number] [address] [place] [address], [place] [address] Jun, [facility] [address] [id number] [facility] [place] [address] May, [facility] [address] [id number] [address] [place] [address], [place] [address] May, [facility] [address] [id number] [address] [place] [address], [place] [address] Apr, [facility] [address] [id number] [address] [place] [address], [place] [address] Apr, [facility] [address] [id number] [address] [place] [address], [place] [address] Apr, [facility] [address] [id number] [address] [place] [address], [place] [address] Apr, [facility] [address] [id number] [address] [place] [address], [place] [address] March, [facility] [address] [id number] [address] [place] [address], [place] [address] March, [facility] [address] [id number] [address] [place] [address], [place] [address] Jan, [facility] [address] [id number] [address] [place] [address], [place] [address] Jan, [facility] [address] [id number] [address] [place] [address], [place] [address] Jan, [facility] [address] [id number] [address] [place] [address], [place] [address] Jan, [facility] [address] [id number] [address] [place] [address], [place] [address] Jan, [facility] [address] [id number] [address] [place] [address], [place] [address] Jan, [facility] [address] [id number] [address] [place] [address], [place] [address] Dec, [facility] [address] [id number] [address] [place] [address], [place] [address] Dec, [facility] [address] [id number] [address] [place] [address], [place] [address] Oct, [facility] [address] [id number] [address] [place] [address], [place] [address] Oct, [facility] [address] [id number] [address] [place] [address], [place] [address] Oct, [facility] [address] [id number] [address] [place] [address], [place] [address] Oct, [facility] [address] [id number] [address] [place] [address], [place] [address] Jul, [facility] [address] [id number] [address] [place] [address], [place] [address] Jul, [facility] [address] [id number] [address] [place] [address], [place] [address] Jul, [facility] [address] [id number] [address] [place] [address], [place] [address] Jun, [facility] [address] [id number] [address] [place] [address], [place] [address] Jun, [facility] [address] [id number] [address] [place] [address], [place] [address] May, [facility] [address] [id number] [address] [place] [address], [place] [address] May, [facility] [address] [id number] [address] [place] [address], [place] [address] March, [facility] [address] [id number] [address] [place] [address], [place] [address] March, [facility] [address] [id number] [address] [place] [address] Feb, [facility] [address] [id number] [address] [place] [address], [place] [address] Feb, [facility] [address] [id number] [address] [place] [address] Jan, [facility] [address] [id number] [address] [place] [address], [place] [address] Dec, [facility] [address] [id number] [address] [place] [address], [place] [address] Dec, [facility] [address] [id number] [address] [place] [address], [place] [address] Dec, [facility] [address] [id number] [address] [place] [address], [place] [address] 14 Dec, 2012 [facility] [address] [id number] [address] [place] [address], [place] [address] Dec, [facility] [address] [id number] [address] [place] [address] Nov, [facility] [address] [id number] [address] [place] [address], [place] [address] Oct, [facility] [address] [id number] [address] [place] [address] Oct, [facility] [address] [id number] [address] [place] [address], [place] [address] Aug, [facility] [address] [id number] [address] [place] [address] Aug, [facility] [address] [id number] [address] [place] [address] Aug, [facility] [address] [id number] [address] [place] [address] Aug, [facility] [address] [id number] [address] [place] [address] Aug, [facility] [address] [id number] [address] [place] [address] Jul, [facility] [address] [id number] [address] [place] [address] Jul, [facility] [address] [id number] [address] [place] [address] Jun, [facility] [address] [id number] [address] [place] [address] Jun, [facility] [address] [id number] [address] [place] [address] May, [facility] [address] [id number] [address] [place] [address] May, [facility] [address] [id number] [address] [place] [address] May, [facility] [address] [id number] [address] [place] [address] Apr, [facility] [address] [id number] [address] [place] [address] Apr, [facility] [address] [id number] [address] [place] [address] March, [facility] [address] [id number] [address] [place] [address] March, [facility] [address] [id number] [address] [place] [address] Feb, [facility] [address] [id number] [address] [place] [address] Feb, [facility] [address] [id number] [address] [place] [id number] Feb, [facility] [address] [id number] [address] [place] [phone] Feb, IMMUNIZATIONS No Known Immunizations SOCIAL HISTORY Never Assessed REASON FOR VISIT EMR-Derrek PLAN OF CARE VITAL SIGNS MEDICATIONS Unknown [...]
--- OUTSIDE RECORDS SUMMARY | 2020-06-17 08:51 | XMS REPORT ---
Author Author Barrie BUSTILLO Organization [facility] Address [address] [place] [address] Care Team Providers Care Supervisor Logging Name Role Phone BARRIE BUSTILLO Unavailable PROBLEMS Type Condition ICD9-CM Code JOJ06-LV Code Onset Dates Condition S tatus SNOMED Code Problem Essential hypertension I10 Active 82387827 Problem Urinary hesitancy R39.11 Active 59 11036 Problem Obstructive sleep apnea G47.33 Active 46523386 Problem Controlled type 2 diabetes m ellitus without complication, without long- term current use of insulin E11.9 Active 471556724 Problem Primary insomnia F51.01 Active 397 2004 Problem 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 Acti ve 36986890 Problem Diabetes type 2, controlled E11.9 Ac tive 80923238 Problem 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.1 Active 584712497 Problem Acute superficial venous thrombosis of left lower extremit y I82.812 Active [id number] Problem Hesitancy of micturition R39.11 Activ e 3217001 Problem Benign prostatic hyperplasia with lower urinary tract symptoms N40.1 Active 359275291 ALLERGIES No Information ENCOUNTERS Encounter Location Date Diagnosis [place] [address] [facility] [id number] [address] [place] [address] Apr, Exercise counseling Z71.82 [facility] [address] [facility] [id number] [address] [place] [address] March, Moderate episode of recurren t major depressive disorder F33.1 [facility] [address] [facility] [id number] [address] [place] [address] March, Moderate episode of recurren t major depressive disorder F33.1 [facility] [address] [facility] [id number] [address] [place] [address] March, Exercise counseling Z71.82 [facility] [address] [id number] [address] [place] [address] March, [facility] [address] [id number] [address] [place] [address] March, Exercise counseling Z71.82 [facility] [address] [facility] [id number] [address] [place] [address] March, Right otitis media with effu yousuf H65.91 ; 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 and Diabetes type 2, controlled E11.9 [facility] [address] [id number] [address] [place] [address] March, Moderate episode of recurren t major depressive disorder F33.1 [place] [address] [facility] [id number] [address] [place] [address] March, Exercise counseling Z71.82 [place] [address] [facility] [id number] [address] [place] [address] March, Exercise counseling Z71.82 [place] [address] [id number] [address] [place] [address] March, Callus of foot L84 [place] [address] [facility] [id number] [address] [place] [address] Feb, Moderate episode of recurren t major depressive disorder F33.1 [place] [address] [id number] [address] [place] [address] Feb, [facility] [address] [facility] [id number] [address] [place] [address] Feb, Moderate episode of recurren t major depressive disorder F33.1 [facility] [address] [id number] [address] [place] [address] Feb, Diabetes type 2, controlled E11.9 and Essential hypertension I10 [facility] [address] [id number] [address] [place] [address] Jan, [facility] [address] [id number] [address] [place] [address] Jan, Callus of foot L84 [facility] [address] [facility] [id number] [address] [place] [address] Jan, Moderate episode of recurren t major depressive disorder F33.1 [facility] [address] [facility] [id number] [address] [place] [address] 05 Jan, 2019 Moderate episode of recurren t major depressive disorder F33.1 [facility] [address] [facility] [id number] [address] [place] [address] Dec, Moderate episode of recurren t major depressive disorder F33.1 [place] [address] [facility] [id number] [address] [place] [address] 11 Dec, 2018 Candidiasis of the esophagus B37.81 [place] [address] [place] [id number] [address] [place] [address] Dec, [facility] [address] [facility] [id number] [address] [place] [address] Dec, Fecal occult blood test posi tive R19.5 and Anemia, unspecified type D64.9 [place] [address] [place] [id number] [address] [place] [address] Nov, Stool color black K92.1 [place] [address] [place] [id number] [address] [place] [address] Nov, Stool color black K92.1 [place] [address] [facility] [id number] [address] [place] [address] Nov, Stool color black K92.1 [place] [address] [facility] [id number] [address] [place] [address] Nov, [place] [address] [facility] [id number] [address] [place] [address] Nov, Moderate episode of recurren t major depressive disorder F33.1 [place] [address] [facility] [id number] [address] [place] [address] Oct, Moderate episode of recurren t major depressive disorder F33.1 [place] [address] [id number] [address] [place] [address] 18 Oct, 2018 Callus of foot L84 and Contr olled type 2 diabetes mellitus without complication, without long-term current use of insulin E11.9 [place] [address] [id number] [address] [place] [address] 10 Oct, 2018 Moderate episode of recurren t major depressive disorder F33.1 [place] [address] [id number] [address] [place] [address] Aug, Mood disorder F39 [place] [address] [id number] [address] [place] [address] 05 Aug, 2018 Encounter for immunization Z 23 [place] [address] [id number] [address] [place] [address] Jul, Moderate episode of recurren t major depressive disorder F33.1 [place] [address] [id number] [address] [place] [address] Jul, Moderate episode of recurren t major depressive disorder F33.1 [place] [address] [id number] [address] [place] [address] May, [place] [address] [id number] [address] [place] [address] May, Moderate episode of recurren t major depressive disorder F33.1 [place] [address] [id number] [address] [place] [address] May, Moderate episode of recurren t major depressive disorder F33.1 [place] [address] [id number] [address] [place] [address] Apr, Benign prostatic hyperplasia with lower urinary tract symptoms N40.1 and Hesitancy of micturition R39.11 [place] [address] [id number] [address] [place] [address] Apr, Moderate episode of recurren t major depressive disorder F33.1 [facility] [address] [id number] [address] [place] [address] Apr, Unspecified mood [affective] disorder F39 and Primary insomnia F51.01 [facility] [address] [id number] [address] [place] [address] Apr, Primary insomnia F51.01 [facility] [address] [id number] [address] [place] [address] March, Foot callus L84 [facility] [address] [facility] [id number] [address] [place] [address] Feb, Medicare annual wellness vis it, initial Z00.00 [facility] [address] [facility] [id number] [address] [place] [address] Feb, Acute superficial venous thr ombosis of left lower extremity I82.812 [facility] [address] [facility] [id number] [address] [place] [address] Feb, [facility] [address] [facility] [id number] [address] [place] [address] Feb, [facility] [address] [facility] [id number] [address] [place] [address] Feb, Acute superficial venous thr ombosis of left lower extremity I82.812 [facility] [address] [facility] [id number] [address] [place] [address] Feb, [facility] [address] [id number] [address] [place] [address] Feb, Other specified soft tissue disorders M79.89 and Pain in left leg M79.605 [facility] [address] [facility] [id number] [address] [place] [address] Jan, Obstructive sleep apnea G47. 33 [facility] [address] [facility] [id number] [address] [place] [address] Dec, Obstructive sleep apnea G47. 33 and Mood disorder F39 [facility] [address] [facility] [id number] [address] [place] [address] Dec, [facility] [address] [facility] [id number] [address] [place] [address] Dec, [facility] [address] [facility] [id number] [address] [place] [address] Nov, Diabetes type 2, controlled E11.9 [facility] [address] [facility] [id number] [address] [place] [address] Nov, Encounter for immunization Z 23 [facility] [address] [facility] [id number] [address] [place] [address] Nov, Primary insomnia F51.01 [facility] [address] [facility] [id number] [address] [place] [address] 07 Oct, 2017 Medicare annual wellness vis it, subsequent Z00.00 and Mood disorder F39 [facility] [address] [facility] [id number] [address] [place] [address] Sep, Mood disorder F39 [facility] [address] [facility] [id number] [address] [place] [address] Aug, Primary insomnia F51.01 and Urinary hesitancy R39.11 [facility] [address] [facility] [id number] [address] [place] [address] Aug, Primary insomnia F51.01 [facility] [address] [facility] [id number] [address] [place] [address] Jul, Diabetes type 2, controlled E11.9 ; Primary insomnia F51.01 and Mood disorder F39 [facility] [address] [id number] [id number] Jun, Mood disorder F39 [facility] [address] [id number] Monika ALCOCER S [id number] Jun, [facility] [address] [facility] [id number] [address] [place] [address] May, Nightmares F51.5 [facility] [address] [id number] [address] [place] [address] May, Cognitive complaints R41.9 ; Unspecified mood [affective] disorder F39 and Primary insomnia F51.01 [facility] [address] [id number] [address] [place] [address] Apr, Mood disorder F39 and Primar y insomnia F51.01 [facility] [address] [id number] [address] [place] [address] Apr, Cognitive complaints R41.9 a nd Unspecified mood [affective] disorder F39 [facility] [address] [id number] [address] [place] [address] Apr, Cognitive complaints R41.9 a nd Unspecified mood [affective] disorder F39 [facility] [address] [id number] [address] [place] [address] March, [facility] [address] [id number] [address] [place] [address] March, Diabetes type 2, controlled E11.9 and Essential hypertension I10 [facility] [address] [id number] [address] [place] [address] March, Primary insomnia F51.01 ; Di abetes type 2, controlled E11.9 and Pain in right shoulder M25.511 [facility] [address] [id number] [address] [place] [address] March, Cognitive complaints R41.9 a nd Unspecified mood [affective] disorder F39 [facility] [address] [id number] [address] [place] [address] Feb, Other specified mental disor ders due to known physiological condition F06.8 [facility] [address] [id number] [address] [place] [address] Jan, [facility] [address] [id number] [address] [place] [address] Jan, [facility] [address] [id number] [address] [place] [address] Dec, Diabetes type 2, controlled E11.9 ; Hypertension, benign I10 and Mood disorder F39 [facility] [address] [facility] [id number] [address] [place] [address] 08 Dec, 2016 Medicare annual wellness vis it, initial Z00.00 [facility] [address] [facility] [id number] [address] [place] [address] 05 Nov, 2016 Medicare welcome exam Z00.00 ; Encounter for immunization Z23 ; Medicare annual wellness visit, initial Z00.00 and Medicare annual wellness visit, subsequent Z00.00 [place] [address] [facility] [id number] [address] [place] [address] Oct, [facility] [address] [facility] [id number] [address] [place] [address] Sep, [facility] [address] [place] [id number] [address] [place] [address] Aug, Encounter for immunization Z 23 and Callus L84 [place] [address] [facility] [id number] [address] [place] [address] Aug, [facility] [address] [facility] [id number] [address] [place] [address] Jul, Diabetes type 2, controlled E11.9 [facility] [address] [facility] [id number] [address] [place] [address] Jul, Diabetes type 2, controlled E11.9 [facility] [address] [facility] [id number] [address] [place] [address] Jun, [facility] [address] [facility] [id number] [address] [place] [address] Jun, Hypertension, benign I10 ; M ood disorder F39 and Diabetes type 2, controlled E11.9 [facility] [address] [facility] [id number] [address] [place] [address] Jun, Mood disorder F39 [facility] [address] [id number] [address] [place] [address] May, [facility] [address] [id number] [address] [place] [address] May, Mood disorder F39 [facility] [address] [facility] [id number] [address] [place] [address] May, Mood disorder F39 [facility] [address] [id number] [address] [place] [address] Apr, Controlled type 2 diabetes m ellitus without complication, without long-term current use of insulin E11.9 ; Essential hypertension I10 and Pain in right shoulder M25.511 [facility] [address] [id number] [address] [place] [address] Apr, Mood disorder F39 [facility] [address] [id number] [address] [place] [address] Apr, Pre-op evaluation Z01.818 [facility] [address] [id number] [address] [place] [address] March, Mood disorder F39 [facility] [address] [id number] [address] [place] [address] Feb, [facility] [address] [id number] [address] [place] [address] Feb, Shoulder pain, right M25.511 [facility] [address] [id number] [address] [place] [address] Feb, Shoulder pain, right M25.511 [facility] [address] [id number] [address] [place] [address] Feb, Shoulder pain, right M25.511 [facility] [address] [id number] [address] [place] [address] Feb, Shoulder pain, right M25.511 [facility] [address] [id number] [address] [place] [address] 30 Jan, 2016 Shoulder pain, right M25.511 [place] [address] [facility] [id number] [address] [place] [address] Jan, Shoulder pain, right M25.511 [place] [address] [facility] [id number] [address] [place] [address] 16 Jan, 2016 [place] [address] [place] [id number] [address] [place] [address] 14 Jan, 2016 Diabetes type 2, controlled E11.9 [place] [address] [facility] [id number] [address] [place] [address] Jan, Shoulder pain, right M25.511 ; Diabetes mellitus without mention of complication, type II or unspecified type, not stated as uncontrolled 250.00 and Diabetes type 2, controlled E11.9 [place] [address] [place] [id number] [address] [place] [address] Jan, [place] [address] [place] [id number] [address] [place] [address] Jan, [place] [address] [facility] [id number] [address] [place] [address] Dec, [place] [address] [place] [id number] [address] [place] [address] Oct, Callus of foot L84 [place] [address] [address] Oct, Anxiety F41.9 ; Callus of fo ot L84 and Dysuria R30.0 [place] [address] [facility] [id number] [address] [place] [address] Sep, Diabetes mellitus without me ntion of complication, type II or unspecified type, not stated as uncontrolled 250.00 [place] [address] [place] [id number] [address] [place] [address] Aug, Diabetes mellitus without me ntion of complication, type II or unspecified type, not stated as uncontrolled 250.00 [place] [address] [id number] [address] [place] [address] 22 Jul, 2015 [facility] [address] [id number] [address] [place] [address] Jul, [facility] [address] [id number] [address] [place] [address] Jul, Diabetes mellitus without me ntion of complication, type II or unspecified type, not stated as uncontrolled 250.00 ; Essential hypertension, benign 401.1 and Anxiety state, unspecified 300.00 [facility] [address] [id number] [address] [place] [address] Jul, [facility] [address] [id number] [address] [place] [address] Jun, [facility] [address] [id number] [address] [place] [address] Jun, [facility] [address] [id number] [address] [place] [address] May, [facility] [address] [id number] [address] [place] [address] May, [facility] [address] [id number] [address] [place] [address] Apr, [facility] [address] [id number] [address] [place] [address] Apr, Mood disorder 296.90 [facility] [address] [id number] [address] [place] [address] March, [facility] [address] [id number] [address] [place] [address] Feb, [facility] [address] [id number] [address] [place] [address] Feb, [facility] [address] [id number] [address] [place] [address] Jan, [facility] [address] [id number] [address] [place] [address], [place] [address] Jan, [facility] [address] [id number] [address] [place] [address], [place] [address] Jan, [facility] [address] [id number] [address] [place] [address], [place] [address] Jan, [facility] [address] [id number] [address] [place] [address], [place] [address] Jan, [facility] [address] [id number] [address] [place] [address], [place] [address] Jan, [facility] [address] [id number] [address] [place] [address], [place] [address] Jan, [facility] [address] [id number] [address] [place] [address], [place] [address] Jan, [facility] [address] [id number] [address] [place] [address], [place] [address] Dec, [facility] [address] [id number] [address] [place] [address], [place] [address] Dec, [facility] [address] [id number] [address] [place] [address], [place] [address] Nov, [facility] [address] [id number] [address] [place] [address], [place] [address] Nov, [facility] [address] [id number] [address] [place] [address], [place] [address] Nov, [facility] [address] [id number] [address] [place] [address], [place] [address] Nov, [facility] [address] [id number] [address] [place] [address], [place] [address] Oct, [facility] [address] [id number] [address] [place] [address], [place] [address] Oct, [facility] [address] [id number] [address] [place] [address], [place] [address] Oct, [facility] [address] [id number] [address] [place] [address], [place] [address] Oct, [facility] [address] [id number] [address] [place] [address], [place] [address] Oct, [facility] [address] [id number] [address] [place] [address], [place] [address] Oct, [facility] [address] [id number] [address] [place] [address], [place] [address] Oct, [facility] [address] [id number] [address] [place] [address], [place] [address] 17 Oct, 2014 [facility] [address] [id number] [address] [place] [address], [place] [address] 15 Oct, 2014 [facility] [address] [id number] [address] [place] [address], [place] [address] Oct, [facility] [address] [id number] [address] [place] [address], [place] [address] Sep, [facility] [address] [id number] [address] [place] [address], [place] [address] 19 Sep, 2014 [facility] [address] [id number] [address] [place] [address], [place] [address] 18 Sep, 2014 [facility] [address] [id number] [address] [place] [address], [place] [address] 18 Sep, 2014 [facility] [address] [id number] [address] [place] [address], [place] [address] 18 Sep, 2014 [facility] [address] [id number] [address] [place] [address], [place] [address] 18 Sep, 2014 [facility] [address] [id number] [address] [place] [address], [place] [address] 16 Aug, 2014 [facility] [address] [id number] [address] [place] [address], [place] [address] 16 Aug, 2014 [facility] [address] [id number] [address] [place] [address] [place] [address] Jul, [facility] [address] [id number] [address] [place] [address], [place] [address] Jul, [facility] [address] [id number] [address] [place] [address], [place] [address] Jun, [facility] [address] [id number] [address] [place] [address], [place] [address] Jun, [facility] [address] [id number] [address] [place] [address], [place] [address] May, [facility] [address] [id number] [address] [place] [address], [place] [address] May, [facility] [address] [id number] [address] [place] [address], [place] [address] Apr, [facility] [address] [id number] [address] [place] [address], [place] [address] Apr, [facility] [address] [id number] [address] [place] [address], [place] [address] Apr, [facility] [address] [id number] [address] [place] [address], [place] [address] Apr, [facility] [address] [id number] [address] [place] [address], [place] [address] March, [facility] [address] [id number] [address] [place] [address], [place] [address] March, [facility] [address] [id number] [address] [place] [address], [place] [address] Jan, [facility] [address] [id number] [address] [place] [address], [place] [address] Jan, [facility] [address] [id number] [address] [place] [address], [place] [address] Jan, [facility] [address] [id number] [address] [place] [address], [place] [address] Jan, [facility] [address] [id number] [address] [place] [address], [place] [address] Jan, [facility] [address] [id number] [address] [place] [address], [place] [address] Jan, [facility] [address] [id number] [address] [place] [address], [place] [address] Dec, [facility] [address] [id number] [address] [place] [address], [place] [address] Dec, [facility] [address] [id number] [address] [place] [address], [place] [address] Oct, [facility] [address] [id number] [address] [place] [address], [place] [address] Oct, [facility] [address] [id number] [address] [place] [address], [place] [address] Oct, [facility] [address] [id number] [address] [place] [address], [place] [address] Oct, [facility] [address] [id number] [address] [place] [address], [place] [address] Jul, [facility] [address] [id number] [address] [place] [address], [place] [address] Jul, [facility] [address] [id number] [address] [place] [address], [place] [address] Jul, [facility] [address] [id number] [address] [place] [address], [place] [address] Jun, [facility] [address] [id number] [address] [place] [address], [place] [address] Jun, [facility] [address] [id number] [address] [place] [address], [place] [address] May, [facility] [address] [id number] [address] [place] [address], [place] [address] May, [facility] [address] [id number] [place] [address] March, [facility] [address] [id number] [address] [place] [address], [place] [address] March, [facility] [address] [id number] [address] [place] [address] Feb, [facility] [address] [id number] [address] [place] [address] Feb, [facility] [address] [id number] [address] [place] [address] Jan, [facility] [address] [id number] [address] [place] [address], [place] [address] Dec, [facility] [address] [id number] [address] [place] [address] Dec, [facility] [address] [id number] [address] [place] [address] 15 Dec, 2012 [facility] [address] [id number] [address] [place] [address] 14 Dec, 2012 [facility] [address] [id number] [address] [place] [address] Dec, [facility] [address] [id number] [address] [place] [address] Nov, [facility] [address] [id number] [address] [place] [address] Oct, [facility] [address] [id number] [address] [place] [address] Oct, [facility] [address] [id number] [address] [place] [address] Aug, [facility] [address] [id number] [address] [place] [address] Aug, [facility] [address] [id number] [address] [place] [address] Aug, [facility] [address] [id number] [address] [place] [address], [place] [address] Aug, [facility] [address] [id number] [address] [place] [address], [place] [address] Aug, [facility] [address] [id number] [address] [place] [address], [place] [address] Jul, [facility] [address] [id number] [address] [place] [address], [place] [address] Jul, [facility] [address] [id number] [address] [place] [address], [place] [address] Jun, [facility] [address] [id number] [address] [place] [address], [place] [address] Jun, [facility] [address] [id number] [address] [place] [address], [place] [address] May, [facility] [address] [id number] [address] [place] [address], [place] [address] May, [facility] [address] [id number] [address] [place] [address], [place] [address] May, [facility] [address] [id number] [address] [place] [address], [place] [address] Apr, [facility] [address] [id number] [address] [place] [address], [place] [address] Apr, [facility] [address] [id number] [address] [place] [address], [place] [address] March, [facility] [address] [id number] [address] [place] [address], [place] [address] March, [facility] [address] [id number] [address] [place] [address], [place] [address] 18 Feb, 2012 [facility] [address] [id number] [address] [place] [address], [place] [address] 17 Feb, 2012 [facility] [address] [id number] [address] [place] [address] [address] Feb, [facility] [address] [facility] [id number] [address] [place] [address] Feb, IMMUNIZATIONS No Known Immunizations SOCIAL HISTORY Never Assessed REASON FOR VISIT PLAN OF CARE VITAL SIGNS Height 71 in 2012-04-27 Weight 270.94 lbs 2012-04-27 Temperature 97.1 degrees Fahrenheit 2012-04-27 Heart Rate 76 bpm 2012-04-27 Respiratory Rate 20 2012-04-27 Blood pressure systolic 110 mmHg 2012-04-27 Blood pressure diastolic 66 mmHg 2012-04-27 MEDICATIONS Unknown Medications RESULTS No Results PROCEDURES [...]
--- OUTSIDE RECORDS SUMMARY | 2020-06-17 08:51 | XMS REPORT ---
Author Author Barrie Wisdom Doctor Organization [facility] Address Unknown Phone Unavailable Care Team Providers Care Order Builder Name Role Phone Migration, Doctor Unavailable Unavailable PROBLEMS Type Condition ICD9-CM Code SCP44-BC Code Onset Dates Condition S tatus SNOMED Code Problem Primary insomnia F51.01 Active 397 2004 Problem Essential hypertension I10 Active 46903842 Problem Urinary hesitancy R39.11 Active 59 63078 Problem Benign prostatic hyperplasia with lower urinary tract symptoms N40.1 Active 217018751 Problem Diabetes type 2, controlled E11.9 Ac tive 98305336 Problem Controlled type 2 diabetes m ellitus without complication, without long- term current use of insulin E11.9 Active 071715252 Problem Obstructive sleep apnea G47.33 Active 52063060 Problem 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.1 Active 588915311 Problem Acute superficial venous thrombosis of left lower extremit y I82.812 Active [id number] Problem Hesitancy of micturition R39.11 Activ e [id number] ALLERGIES No Information ENCOUNTERS Encounter Location Date Diagnosis [facility] [place] [address] [facility] [id number] [address] [place] [id number] Apr, [facility] [place] [address] [place] [id number] [address] [place] [id number] March, [facility] [place] [address] [facility] [id number] [address] [place] [id number] March, [facility] [place] [address] [place] [id number] [address] [place] [address] March, [facility] [place] [address] [place] [id number] [address] [place] [id number] March, [facility] [place] [address] [facility] [id number] [address] [place] [id number] Feb, Moderate episode of recurren t major depressive disorder F33.1 [facility] [place] [address] [place] [id number] [address] [place] [id number] Feb, [place] [address] [address] Feb, Moderate episode of recurren t major depressive disorder F33.1 [place] [address] [place] [id number] [address] [place] [address] Feb, Diabetes type 2, controlled E11.9 and Essential hypertension I10 [place] [address] [address] Jan, [place] [address] [address] Jan, Callus of foot L84 [place] [address] [address] Jan, Moderate episode of recurren t major depressive disorder F33.1 [place] [address] [address] Jan, Moderate episode of recurren t major depressive disorder F33.1 [place] [address] [address] Dec, Moderate episode of recurren t major depressive disorder F33.1 [place] [address] [place] [id number] [address] [place] [address] Dec, Candidiasis of the esophagus B37.81 [place] [address] [place] [id number] [address] [place] [address] Dec, [facility] [address] [place] [place] [id number] [address] [place] [id number] Dec, Fecal occult blood test posi tive R19.5 and Anemia, unspecified type D64.9 [place] [address] [place] [id number] [address] [place] [address] Nov, Stool color black K92.1 [place] [address] [place] [id number] [place] [address] Nov, Stool color black K92.1 [facility] [place] [address] [id number] [address] [place] [address] Nov, Stool color black K92.1 [facility] [place] [address] [id number] [address] [place] [address] Nov, [facility] [place] [address] [id number] [address] [place] [id number] Nov, Moderate episode of recurren t major depressive disorder F33.1 [place] [address] [id number] [address] [place] [phone] Oct, Moderate episode of recurren t major depressive disorder F33.1 [place] [address] [facility] [id number] [address] [place] [address] Oct, Callus of foot L84 and Contr olled type 2 diabetes mellitus without complication, without long-term current use of insulin E11.9 [place] [address] [id number] [address] [place] [id number] Oct, Moderate episode of recurren t major depressive disorder F33.1 [place] [address] [facility] [id number] [address] [place] [address] Aug, Mood disorder F39 [place] [address] [facility] [id number] [address] [place] [id number] 05 Aug, 2018 Encounter for immunization Z 23 [facility] [place] [address] [id number] [address] [place] [phone] Jul, Moderate episode of recurren t major depressive disorder F33.1 [facility] [place] [address] [id number] [address] [place] [id number] 24 Jul, 2018 Moderate episode of recurren t major depressive disorder F33.1 [facility] [place] [address] [facility] [id number] [address] [place] [phone] May, [facility] [place] [address] [id number] [address] [place] [phone] May, Moderate episode of recurren t major depressive disorder F33.1 [facility] [place] [address] [id number] [address] [place] [phone] May, Moderate episode of recurren t major depressive disorder F33.1 [facility] [place] [address] [id number] [address] [place] [address] Apr, Benign prostatic hyperplasia with lower urinary tract symptoms N40.1 and Hesitancy of micturition R39.11 [facility] [place] [address] [id number] [address] [place] [id number] Apr, Moderate episode of recurren t major depressive disorder F33.1 [facility] [place] [address] [id number] [address] [place] [address] Apr, Unspecified mood [affective] disorder F39 and Primary insomnia F51.01 [place] [address] [id number] [address] [place] [address] Apr, Primary insomnia F51.01 [facility] [place] [address] [id number] [address] [place] [address] March, Foot callus L84 [facility] [place] [address] [facility] [id number] [address] [place] [address] Feb, Medicare annual wellness vis it, initial Z00.00 [facility] [place] [address] [id number] [address] [place] [address] Feb, Acute superficial venous thr ombosis of left lower extremity I82.812 [facility] [place] [address] [id number] [address] [place] [address] Feb, [facility] [place] [address] [id number] [address] [place] [phone] Feb, [facility] [place] [address] [facility] [id number] [address] [place] [address] Feb, Acute superficial venous thr ombosis of left lower extremity I82.812 [facility] [place] [address] [facility] [id number] [address] [place] [phone] Feb, [facility] [address] [facility] [id number] [address] [place] [address] Feb, Other specified soft tissue disorders M79.89 and Pain in left leg M79.605 [facility] [place] [address] [place] [id number] [address] [place] [id number] Jan, Obstructive sleep apnea G47. 33 [facility] [place] [address] [facility] [id number] [address] [place] [address] Dec, Obstructive sleep apnea G47. 33 and Mood disorder F39 [place] [address] [place] [id number] [address] [place] [id number] Dec, [facility] [place] [address] [place] [id number] [address] [place] [address] Dec, [facility] [place] [address] [address] Nov, Diabetes type 2, controlled E11.9 [place] [address] [address] Nov, Encounter for immunization Z 23 [facility] [place] [address] [place] [id number] [address] [place] [address] Nov, Primary insomnia F51.01 [facility] [place] [address] [place] [id number] [address] [place] [address] Oct, Medicare annual wellness vis it, subsequent Z00.00 and Mood disorder F39 [place] [address] [place] [id number] [address] [place] [id number] Sep, Mood disorder F39 [facility] [place] [address] [place] [id number] [address] [place] [address] Aug, Primary insomnia F51.01 and Urinary hesitancy R39.11 [place] [address] [place] [id number] [address] [place] [address] Aug, Primary insomnia F51.01 [facility] [place] [address] [facility] [id number] [address] [place] [address] Jul, Diabetes type 2, controlled E11.9 ; Primary insomnia F51.[address] [facility] [address] [address] [id number] [id number] Jun, Mood disorder F39 [facility] [address] [id number] [place] [id number] Jun, [facility] [place] [address] [facility] [id number] [address] [place] [address] May, Nightmares F51.5 [facility] [place] [address] [facility] [id number] [address] [place] [address] May, Cognitive complaints R41.9 ; Unspecified mood [affective] disorder F39 and Primary insomnia F51.01 [facility] [place] [address] [facility] [id number] [address] [place] [address] Apr, Mood disorder F39 and Primar y insomnia F51.01 [facility] [place] [address] [facility] [id number] [address] [place] [id number] Apr, Cognitive complaints R41.9 a nd Unspecified mood [affective] disorder F39 [facility] [place] [address] [facility] [id number] [address] [place] [address] Apr, Cognitive complaints R41.9 a nd Unspecified mood [affective] disorder F39 [facility] [place] [address] [facility] [id number] [address] [place] [id number] March, [facility] [place] [address] [facility] [id number] [address] [place] [phone] March, Diabetes type 2, controlled E11.9 and Essential hypertension I10 [facility] [place] [address] [facility] [id number] [address] [place] [address] March, Primary insomnia F51.01 ; Di abetes type 2, controlled E11.9 and Pain in right shoulder M25.511 [facility] [place] [address] [facility] [id number] [address] [place] [address] March, Cognitive complaints R41.9 a nd Unspecified mood [affective] disorder F39 [facility] [place] [address] [facility] [id number] [address] [place] [id number] Feb, Other specified mental disor ders due to known physiological condition F06.8 [place] [address] [place] [id number] [address] [place] [id number] Jan, [place] [address] [place] [id number] [address] [place] [address] Jan, [place] [address] [place] [id number] [address] [place] [id number] Dec, Diabetes type 2, controlled E11.9 ; Hypertension, benign I10 and Mood disorder F39 [place] [address] [place] [id number] [address] [place] [id number] 08 Dec, 2016 Medicare annual wellness vis it, initial Z00.00 [place] [address] [address] Nov, Medicare welcome exam Z00.00 ; Encounter for immunization Z23 ; Medicare annual wellness visit, initial Z00.00 and Medicare annual wellness visit, subsequent Z00.00 [place] [address] [place] [id number] [address] [place] [id number] Oct, [place] [address] [place] [id number] [address] [place] [id number] Sep, [place] [address] [place] [id number] [address] [place] [address] Aug, Encounter for immunization Z 23 and Callus L84 [place] [address] [place] [id number] [address] [place] [id number] Aug, [place] [address] [place] [id number] [address] [place] [id number] Jul, Diabetes type 2, controlled E11.9 [facility] [place] [address] [id number] [address] [place] [id number] Jul, Diabetes type 2, controlled E11.9 [facility] [place] [address] [id number] [address] [place] [phone] Jun, [facility] [place] [address] [id number] [address] [place] [address] Jun, Hypertension, benign I10 ; M ood disorder F39 and Diabetes type 2, controlled E11.9 [facility] [place] [address] [id number] [address] [place] [phone] Jun, Mood disorder F39 [facility] [place] [address] [id number] [address] [place] [phone] May, [facility] [place] [address] [id number] [address] [place] [id number] May, Mood disorder F39 [facility] [place] [address] [id number] [address] [place] [address] May, Mood disorder F39 [facility] [place] [address] [id number] [address] [place] [id number] Apr, Controlled type 2 diabetes m ellitus without complication, without long-term current use of insulin E11.9 ; Essential hypertension I10 and Pain in right shoulder M25.511 [facility] [place] [address] [id number] [address] [place] [id number] Apr, Mood disorder F39 [facility] [place] [address] [id number] [address] [place] [address] Apr, Pre-op evaluation Z01.818 [facility] [place] [address] [id number] [address] [place] [address] March, Mood disorder F39 [facility] [place] [address] [id number] [address] [place] [phone] Feb, [facility] [place] [address] [id number] [address] [place] [address] 18 Feb, 2016 Shoulder pain, right M25.511 [facility] [place] [address] [id number] [address] [place] [address] Feb, Shoulder pain, right M25.511 [facility] [place] [address] [id number] [address] [place] [address] Feb, Shoulder pain, right M25.511 [facility] [place] [address] [id number] [address] [place] [address] Feb, Shoulder pain, right M25.511 [facility] [place] [address] [id number] [address] [place] [address] Jan, Shoulder pain, right M25.511 [facility] [place] [address] [id number] [address] [place] [address] Jan, Shoulder pain, right M25.511 [facility] [place] [address] [facility] [id number] [address] [place] [id number] 16 Jan, 2016 [facility] [place] [address] [id number] [address] [place] [phone] Jan, Diabetes type 2, controlled E11.9 [facility] [place] [address] [facility] [id number] [address] [place] [id number] Jan, Shoulder pain, right M25.511 ; Diabetes mellitus without mention of complication, type II or unspecified type, not stated as uncontrolled 250.00 and Diabetes type 2, controlled E11.9 [facility] [place] [address] [id number] [address] [place] [phone] Jan, [facility] [place] [address] [facility] [id number] [address] [place] [phone] Jan, [facility] [place] [address] [facility] [id number] [address] [place] [address] Dec, [facility] [place] [address] [facility] [id number] [address] [place] [address] Oct, Callus of foot L84 [facility] [place] [address] [address] Oct, Anxiety F41.9 ; Callus of fo ot L84 and Dysuria R30.0 [facility] [place] [address] [address] Sep, Diabetes mellitus without me ntion of complication, type II or unspecified type, not stated as uncontrolled 250.00 [facility] [place] [address] [address] Aug, Diabetes mellitus without me ntion of complication, type II or unspecified type, not stated as uncontrolled 250.00 [facility] [place] [address] [id number] Jul, [facility] [place] [address] [address] Jul, [facility] [place] [address] [address] Jul, Diabetes mellitus without me ntion of complication, type II or unspecified type, not stated as uncontrolled 250.00 ; Essential hypertension, benign 401.1 and Anxiety state, unspecified 300.00 [facility] [place] [address] [id number] Jul, [facility] [place] [address] [id number] Jun, [facility] [place] [address] [address] Jun, [facility] [place] [address] [address] May, [facility] [place] [address] [address] May, [facility] [place] [address] [address] Apr, [facility] [address] [id number] [address] [place] [address], [place] [address] Apr, Mood disorder 296.90 [facility] [place] [address] [id number] [address] [place] [address], [place] [phone] March, [facility] [address] [id number] [address] [place] [address], [place] [address] Feb, [facility] [address] [id number] [address] [place] [address], [place] [phone] Feb, [facility] [address] [id number] [address] [place] [address], [place] [address] Jan, [facility] [address] [id number] [address] [place] [address], [place] [address] Jan, [facility] [address] [id number] [address] [place] [address], [place] [address] Jan, [facility] [address] [id number] [address] [place] [address], [place] [address] Jan, [facility] [address] [id number] [address] [place] [address], [place] [phone] Jan, [facility] [address] [id number] [address] [place] [address], [place] [address] Jan, [facility] [address] [id number] [address] [place] [address], [place] [phone] Jan, [facility] [address] [id number] [address] [place] [id number] Jan, [facility] [address] [id number] [address] [place] [address], [place] [id number] Dec, [facility] [address] [id number] [address] [place] [address], [place] [id number] Dec, [facility] [address] [id number] [address] [place] [address], [place] [phone] Nov, [facility] [address] [id number] [address] [place] [id number] Nov, [facility] [address] [id number] [address] [place] [address], [place] [id number] Nov, [facility] [address] [id number] [address] [place] [address], [place] [phone] Nov, [facility] [address] [id number] [address] [place] [address], [place] [phone] Oct, [facility] [address] [id number] [address] [place] [address], [place] [phone] Oct, [facility] [address] [id number] [address] [place] [address], [place] [phone] Oct, [facility] [address] [id number] [address] [place] [address], [place] [phone] Oct, [facility] [address] [id number] [address] [place] [address], [place] [phone] Oct, [facility] [address] [id number] [address] [place] [address], [place] [id number] Oct, [facility] [address] [id number] [address] [place] [address], [place] [id number] Oct, [facility] [address] [id number] [address] [place] [address], [place] [phone] Oct, [facility] [address] [id number] [address] [place] [address], [place] [address] Oct, [facility] [address] [id number] [address] [place] [address], [place] [id number] Oct, [facility] [address] [id number] [address] [place] [address], [place] [phone] Sep, [facility] [address] [id number] [address] [place] [address], [place] [address] Sep, [facility] [address] [id number] [address] [place] [address], [place] [address] 18 Sep, 2014 [facility] [address] [id number] [address] [place] [address], [place] [address] Sep, [facility] [address] [id number] [address] [place] [address], [place] [address] Sep, [facility] [address] [id number] [address] [place] [address], [place] [address] Sep, [facility] [address] [id number] [address] [place] [address], [place] [address] Aug, [facility] [address] [id number] [address] [place] [address], [place] [address] Aug, [facility] [address] [id number] [address] [place] [address], [place] [phone] Jul, [facility] [address] [id number] [address] [place] [address], [place] [id number] Jul, [facility] [address] [id number] [address] [place] [address], [place] [address] Jun, [facility] [address] [id number] [address] [place] [address], [place] [address] Jun, [facility] [address] [id number] [address] [place] [address], [place] [address] May, [facility] [address] [id number] [address] [place] [address], [place] [phone] May, [facility] [address] [id number] [address] [place] [address], [place] [address] Apr, [facility] [address] [id number] [address] [place] [address], [place] [address] Apr, [facility] [address] [id number] [address] [place] [address], [place] [address] Apr, [facility] [address] [id number] [address] [place] [address], [place] [address] Apr, [facility] [address] [id number] [address] [place] [address], [place] [address] March, [facility] [address] [id number] [facility] [place] [phone] March, [facility] [address] [id number] [address] [place] [address], [place] [address] Jan, [facility] [address] [id number] [address] [place] [address], [place] [address] Jan, [facility] [address] [id number] [address] [place] [address], [place] [address] Jan, [facility] [address] [id number] [address] [place] [address], [place] [address] Jan, [facility] [address] [id number] [address] [place] [address], [place] [address] Jan, [facility] [address] [id number] [address] [place] [address], [place] [address] Jan, [facility] [address] [id number] [address] [place] [address], [place] [address] Dec, [facility] [address] [id number] [address] [place] [address], [place] [address] Dec, [facility] [address] [id number] [address] [place] [address], [place] [address] Oct, [facility] [address] [id number] [address] [place] [address], [place] [address] Oct, [facility] [address] [id number] [address] [place] [address], [place] [address] Oct, [facility] [address] [id number] [address] [place] [address], [place] [address] Oct, [facility] [address] [id number] [address] [place] [address], [place] [address] Jul, [facility] [address] [id number] [address] [place] [address], [place] [address] Jul, [facility] [address] [id number] [address] [place] [address], [place] [address] Jul, [facility] [place] [address] [id number] [address] [place] [address], [place] [address] Jun, [facility] [address] [id number] [address] [place] [address], [place] [address] Jun, [facility] [place] [address] [id number] [address] [place] [address], [place] [address] May, [facility] [address] [id number] [address] [place] [address], [place] [address] May, [facility] [place] [address] [id number] [address] [place] [address], [place] [address] March, [facility] [place] [address] [id number] [address] [place] [address], [place] [address] March, [facility] [place] [address] [id number] [address] [place] [address], [place] [address] Feb, [facility] [place] [address] [id number] [address] [place] [address], [place] [address] Feb, [facility] [place] [address] [id number] [address] [place] [address], [place] [address] Jan, [facility] [place] [address] [id number] [address] [place] [address], [place] [phone] 25 Dec, 2012 [facility] [place] [address] [id number] [address] [place] [address], [place] [id number] 19 Dec, 2012 [facility] [place] [address] [id number] [address] [place] [address], [place] [address] 15 Dec, 2012 [facility] [address] [id number] [address] [place] [address], [place] [phone] 14 Dec, 2012 [facility] [address] [id number] [address] [place] [address], [place] [address] 13 Dec, 2012 [facility] [address] [id number] [address] [place] [address], [place] [address] Nov, [facility] [address] [id number] [address] [place] [address], [place] [address] Oct, [facility] [address] [id number] [address] [place] [address], [place] [address] Oct, [facility] [address] [id number] [address] [place] [address], [place] [address] Aug, [facility] [address] [id number] [address] [place] [address], [place] [address] Aug, [facility] [address] [id number] [address] [place] [address], [place] [id number] Aug, [facility] [address] [id number] [address] [place] [address], [place] [address] Aug, [facility] [address] [id number] [address] [place] [address], [place] [address] Aug, [facility] [address] [id number] [address] [place] [address], [place] [address] Jul, [facility] [address] [id number] [address] [place] [address], [place] [phone] Jul, [facility] [address] [id number] [address] [place] [address], [place] [address] Jun, [facility] [address] [id number] [address] [place] [address], [place] [phone] Jun, [facility] [address] [id number] [address] [place] [address], [place] [address] May, [facility] [address] [id number] [address] [place] [address], [place] [address] May, [facility] [address] [id number] [address] [place] [address], [place] [address] May, [facility] [address] [id number] [address] [place] [address], [place] [address] Apr, [facility] [address] [id number] [address] [place] [id number] Apr, [facility] [place] [address] [facility] [id number] [address] [place] [phone] March, [facility] [place] [address] [facility] [id number] [address] [place] [phone] March, [facility] [place] [address] [facility] [id number] [address] [place] [phone] Feb, [facility] [place] [address] [facility] [id number] [address] [place] [phone] Feb, [facility] [place] [address] [facility] [id number] [address] [place] [phone] Feb, [facility] [place] [address] [facility] [id number] [address] [place] [phone] Feb, IMMUNIZATIONS No Known Immunizations SOCIAL HISTORY Never Assessed REASON FOR VISIT EMR-[facility] PLAN OF CARE VITAL SIGNS MEDICATIONS Unknown [...]
--- OUTSIDE RECORDS SUMMARY | 2020-06-17 08:51 | XMS REPORT ---
Author Author Barrie Wisdom Doctor Organization [facility] Address Unknown Phone Unavailable Care Team Providers Care Concrete Stone Finisher Name Role Phone Migration, Doctor Unavailable Unavailable PROBLEMS Type Condition ICD9-CM Code IFM34-XV Code Onset Dates Condition S tatus SNOMED Code Problem Primary insomnia F51.01 Active 397 2004 Problem Essential hypertension I10 Active 76821684 Problem Urinary hesitancy R39.11 Active 59 66627 Problem Benign prostatic hyperplasia with lower urinary tract symptoms N40.1 Active 860985460 Problem Diabetes type 2, controlled E11.9 Ac tive 55560721 Problem Controlled type 2 diabetes m ellitus without complication, without long- term current use of insulin E11.9 Active 172022311 Problem Obstructive sleep apnea G47.33 Active 55029411 Problem 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.1 Active 730941834 Problem Acute superficial venous thrombosis of left lower extremit y I82.812 Active [id number] Problem Hesitancy of micturition R39.11 Activ e [id number] ALLERGIES No Information ENCOUNTERS Encounter Location Date Diagnosis [facility] [address] [facility] [id number] [address] [place] [address] Apr, [facility] [address] [place] [id number] [address] [place] [address] March, [facility] [address] [facility] [id number] [address] [place] [address] March, [facility] [address] [place] [id number] [address] [place] [address] March, [facility] [address] [place] [id number] [address] [place] [address] March, [facility] [address] [facility] [id number] [address] [place] [address] Feb, Moderate episode of recurren t major depressive disorder F33.1 [facility] [address] [place] [id number] [address] [place] [address] Feb, [place] [address] [address] Feb, Moderate episode of recurren t major depressive disorder F33.1 [place] [address] [place] [id number] [address] [place] [address] Feb, Diabetes type 2, controlled E11.9 and Essential hypertension I10 [place] [address] [address] Jan, [place] [address] [id number] Jan, Callus of foot L84 [place] [address] [address] Jan, Moderate episode of recurren t major depressive disorder F33.1 [place] [address] [address] Jan, Moderate episode of recurren t major depressive disorder F33.1 [place] [address] [address] Dec, Moderate episode of recurren t major depressive disorder F33.1 [place] [address] [place] [id number] [address] [place] [address] Dec, Candidiasis of the esophagus B37.81 [place] [address] [place] [id number] [address] [place] [address] Dec, [facility] [address] [place] [id number] [address] [place] [address] Dec, Fecal occult blood test posi tive R19.5 and Anemia, unspecified type D64.9 [place] [address] [place] [id number] [address] [place] [address] Nov, Stool color black K92.1 [place] [address] [place] [id number] [place] [address] Nov, Stool color black K92.1 [facility] [address] [id number] [address] [place] [address] Nov, Stool color black K92.1 [facility] [address] [id number] [address] [place] [address] Nov, [facility] [address] [id number] [address] [place] [address] Nov, Moderate episode of recurren t major depressive disorder F33.1 [place] [address] [id number] [address] [place] [address] Oct, Moderate episode of recurren t major depressive disorder F33.1 [place] [address] [facility] [id number] [address] [place] [address] Oct, Callus of foot L84 and Contr olled type 2 diabetes mellitus without complication, without long-term current use of insulin E11.9 [place] [address] [id number] [address] [place] [address] Oct, Moderate episode of recurren t major depressive disorder F33.1 [place] [address] [facility] [id number] [address] [place] [address] Aug, Mood disorder F39 [place] [address] [facility] [id number] [address] [place] [address] 05 Aug, 2018 Encounter for immunization Z 23 [facility] [address] [id number] [address] [place] [address] Jul, Moderate episode of recurren t major depressive disorder F33.1 [facility] [address] [id number] [address] [place] [address] 24 Jul, 2018 Moderate episode of recurren t major depressive disorder F33.1 [facility] [address] [facility] [id number] [address] [place] [address] May, [facility] [address] [id number] [address] [place] [address] May, Moderate episode of recurren t major depressive disorder F33.1 [facility] [address] [id number] [address] [place] [address] May, Moderate episode of recurren t major depressive disorder F33.1 [facility] [address] [id number] [address] [place] [address] Apr, Benign prostatic hyperplasia with lower urinary tract symptoms N40.1 and Hesitancy of micturition R39.11 [facility] [address] [id number] [address] [place] [address] Apr, Moderate episode of recurren t major depressive disorder F33.1 [facility] [address] [id number] [address] [place] [address] Apr, Unspecified mood [affective] disorder F39 and Primary insomnia F51.01 [place] [address] [id number] [address] [place] [address] Apr, Primary insomnia F51.01 [facility] [address] [id number] [address] [place] [address] March, Foot callus L84 [facility] [address] [facility] [id number] [address] [place] [address] Feb, Medicare annual wellness vis it, initial Z00.00 [facility] [address] [id number] [address] [place] [address] Feb, Acute superficial venous thr ombosis of left lower extremity I82.812 [facility] [address] [id number] [address] [place] [address] Feb, [facility] [address] [id number] [address] [place] [address] Feb, [facility] [address] [facility] [id number] [address] [place] [address] Feb, Acute superficial venous thr ombosis of left lower extremity I82.812 [facility] [address] [facility] [id number] [address] [place] [address] Feb, [facility] [address] [facility] [id number] [address] [place] [address] Feb, Other specified soft tissue disorders M79.89 and Pain in left leg M79.605 [facility] [address] [place] [id number] [address] [place] [address] Jan, Obstructive sleep apnea G47. 33 [facility] [address] [facility] [id number] [address] [place] [address] Dec, Obstructive sleep apnea G47. 33 and Mood disorder F39 [place] [address] [place] [id number] [address] [place] [address] Dec, [facility] [address] [place] [id number] [address] [place] [address] Dec, [facility] [address] [address] Nov, Diabetes type 2, controlled E11.9 [place] [address] [address] Nov, Encounter for immunization Z 23 [facility] [address] [place] [id number] [address] [place] [address] Nov, Primary insomnia F51.01 [facility] [address] [place] [id number] [address] [place] [address] Oct, Medicare annual wellness vis it, subsequent Z00.00 and Mood disorder F39 [place] [address] [place] [id number] [address] [place] [address] Sep, Mood disorder F39 [facility] [address] [place] [id number] [address] [place] [address] Aug, Primary insomnia F51.01 and Urinary hesitancy R39.11 [place] [address] [place] [id number] [address] [place] [address] Aug, Primary insomnia F51.01 [facility] [address] [facility] [id number] [address] [place] [address] Jul, Diabetes type 2, controlled E11.9 ; Primary insomnia F51.01 and Mood disorder F39 [facility] [address] [facility] [address] [address] [id number] [id number] Jun, Mood disorder F39 [facility] [address] [id number] [place] [id number] Jun, [facility] [address] [facility] [id number] [address] [place] [address] May, Nightmares F51.5 [facility] [address] [facility] [id number] [address] [place] [address] May, Cognitive complaints R41.9 ; Unspecified mood [affective] disorder F39 and Primary insomnia F51.01 [facility] [address] [facility] [id number] [address] [place] [address] Apr, Mood disorder F39 and Primar y insomnia F51.01 [facility] [address] [facility] [id number] [address] [place] [address] Apr, Cognitive complaints R41.9 a nd Unspecified mood [affective] disorder F39 [facility] [address] [facility] [id number] [address] [place] [address] Apr, Cognitive complaints R41.9 a nd Unspecified mood [affective] disorder F39 [facility] [address] [facility] [id number] [address] [place] [address] March, [facility] [address] [facility] [id number] [address] [place] [address] March, Diabetes type 2, controlled E11.9 and Essential hypertension I10 [facility] [address] [facility] [id number] [address] [place] [address] March, Primary insomnia F51.01 ; Di abetes type 2, controlled E11.9 and Pain in right shoulder M25.511 [facility] [address] [facility] [id number] [address] [place] [address] March, Cognitive complaints R41.9 a nd Unspecified mood [affective] disorder F39 [facility] [address] [facility] [id number] [address] [place] [address] Feb, Other specified mental disor ders due to known physiological condition F06.8 [place] [address] [place] [id number] [address] [place] [address] Jan, [place] [address] [place] [id number] [address] [place] [address] Jan, [place] [address] [place] [id number] [address] [place] [address] Dec, Diabetes type 2, controlled E11.9 ; Hypertension, benign I10 and Mood disorder F39 [place] [address] [place] [id number] [address] [place] [address] 08 Dec, 2016 Medicare annual wellness vis it, initial Z00.00 [place] [address] [address] Nov, Medicare welcome exam Z00.00 ; Encounter for immunization Z23 ; Medicare annual wellness visit, initial Z00.00 and Medicare annual wellness visit, subsequent Z00.00 [place] [address] [place] [id number] [address] [place] [address] Oct, [place] [address] [place] [id number] [address] [place] [address] Sep, [place] [address] [place] [id number] [address] [place] [address] Aug, Encounter for immunization Z 23 and Callus L84 [place] [address] [place] [id number] [address] [place] [address] Aug, [place] [address] [place] [id number] [address] [place] [address] Jul, Diabetes type 2, controlled E11.9 [facility] [address] [id number] [address] [place] [address] Jul, Diabetes type 2, controlled E11.9 [facility] [address] [id number] [address] [place] [address] Jun, [facility] [address] [id number] [address] [place] [address] Jun, Hypertension, benign I10 ; M ood disorder F39 and Diabetes type 2, controlled E11.9 [facility] [address] [id number] [address] [place] [address] Jun, Mood disorder F39 [facility] [address] [id number] [address] [place] [address] May, [facility] [address] [id number] [address] [place] [address] May, Mood disorder F39 [facility] [address] [id number] [address] [place] [address] May, Mood disorder F39 [facility] [address] [id number] [address] [place] [address] Apr, Controlled type 2 diabetes m ellitus without complication, without long-term current use of insulin E11.9 ; Essential hypertension I10 and Pain in right shoulder M25.511 [facility] [address] [id number] [address] [place] [address] Apr, Mood disorder F39 [facility] [address] [id number] [address] [place] [address] Apr, Pre-op evaluation Z01.818 [facility] [address] [id number] [address] [place] [address] March, Mood disorder F39 [facility] [address] [id number] [address] [place] [address] Feb, [facility] [address] [id number] [address] [place] [address] 18 Feb, 2016 Shoulder pain, right M25.511 [facility] [address] [id number] [address] [place] [address] Feb, Shoulder pain, right M25.511 [facility] [address] [id number] [address] [place] [address] Feb, Shoulder pain, right M25.511 [facility] [address] [id number] [address] [place] [address] Feb, Shoulder pain, right M25.511 [facility] [address] [id number] [address] [place] [address] Jan, Shoulder pain, right M25.511 [facility] [address] [id number] [address] [place] [address] Jan, Shoulder pain, right M25.511 [facility] [address] [facility] [id number] [address] [place] [address] 16 Jan, 2016 [facility] [address] [id number] [address] [place] [address] Jan, Diabetes type 2, controlled E11.9 [facility] [address] [facility] [id number] [address] [place] [address] Jan, Shoulder pain, right M25.511 ; Diabetes mellitus without mention of complication, type II or unspecified type, not stated as uncontrolled 250.00 and Diabetes type 2, controlled E11.9 [facility] [address] [id number] [address] [place] [address] Jan, [facility] [address] [facility] [id number] [address] [place] [address] Jan, [facility] [address] [facility] [id number] [address] [place] [address] Dec, [facility] [address] [facility] [id number] [address] [place] [address] Oct, Callus of foot L84 [facility] [address] [address] Oct, Anxiety F41.9 ; Callus of fo ot L84 and Dysuria R30.0 [facility] [address] [address] Sep, Diabetes mellitus without me ntion of complication, type II or unspecified type, not stated as uncontrolled 250.00 [facility] [address] [address] Aug, Diabetes mellitus without me ntion of complication, type II or unspecified type, not stated as uncontrolled 250.00 [facility] [address] [address] Jul, [facility] [address] [address] Jul, [facility] [address] [address] Jul, Diabetes mellitus without me ntion of complication, type II or unspecified type, not stated as uncontrolled 250.00 ; Essential hypertension, benign 401.1 and Anxiety state, unspecified 300.00 [facility] [address] [address] Jul, [facility] [address] [address] Jun, [facility] [address] [address] Jun, [facility] [address] [address] May, [facility] [address] [address] May, [facility] [address] [address] Apr, [facility] [address] [id number] [address] [place] [address], [place] [address] Apr, Mood disorder 296.90 [facility] [address] [id number] [address] [place] [address], [place] [address] March, [facility] [address] [id number] [address] [place] [address], [place] [address] Feb, [facility] [address] [id number] [address] [place] [address], [place] [address] Feb, [facility] [address] [id number] [address] [place] [address], [place] [address] Jan, [facility] [address] [id number] [address] [place] [address], [place] [address] Jan, [facility] [address] [id number] [address] [place] [address], [place] [address] Jan, [facility] [address] [id number] [address] [place] [address], [place] [address] Jan, [facility] [address] [id number] [address] [place] [address], [place] [address] Jan, [facility] [address] [id number] [address] [place] [address], [place] [address] Jan, [facility] [address] [id number] [address] [place] [address], [place] [address] Jan, [facility] [address] [id number] [address] [place] [address] Jan, [facility] [address] [id number] [address] [place] [address], [place] [address] Dec, [facility] [address] [id number] [address] [place] [address], [place] [address] Dec, [facility] [address] [id number] [address] [place] [address], [place] [address] Nov, [facility] [address] [id number] [address] [place] [address] Nov, [facility] [address] [id number] [address] [place] [address], [place] [address] Nov, [facility] [address] [id number] [address] [place] [address], [place] [address] Nov, [facility] [address] [id number] [address] [place] [address], [place] [address] Oct, [facility] [address] [id number] [address] [place] [address], [place] [address] Oct, [facility] [address] [id number] [address] [place] [address], [place] [address] Oct, [facility] [address] [id number] [address] [place] [address], [place] [address] Oct, [facility] [address] [id number] [address] [place] [address], [place] [address] Oct, [facility] [address] [id number] [address] [place] [address], [place] [address] Oct, [facility] [address] [id number] [address] [place] [address], [place] [address] Oct, [facility] [address] [id number] [address] [place] [address], [place] [address] Oct, [facility] [address] [id number] [address] [place] [address], [place] [address] Oct, [facility] [address] [id number] [address] [place] [address], [place] [address] Oct, [facility] [address] [id number] [address] [place] [address], [place] [address] Sep, [facility] [address] [id number] [address] [place] [address], [place] [address] Sep, [facility] [address] [id number] [address] [place] [address], [place] [address] 18 Sep, 2014 [facility] [address] [id number] [address] [place] [address], [place] [address] Sep, [facility] [address] [id number] [address] [place] [address], [place] [address] Sep, [facility] [address] [id number] [address] [place] [address], [place] [address] Sep, [facility] [address] [id number] [address] [place] [address], [place] [address] Aug, [facility] [address] [id number] [address] [place] [address], [place] [address] Aug, [facility] [address] [id number] [address] [place] [address], [place] [address] Jul, [facility] [address] [id number] [address] [place] [address], [place] [address] Jul, [facility] [address] [id number] [address] [place] [address], [place] [address] Jun, [facility] [address] [id number] [address] [place] [address], [place] [address] Jun, [facility] [address] [id number] [address] [place] [address], [place] [address] May, [facility] [address] [id number] [address] [place] [address], [place] [address] May, [facility] [address] [id number] [address] [place] [address], [place] [address] Apr, [facility] [address] [id number] [address] [place] [address], [place] [address] Apr, [facility] [address] [id number] [address] [place] [address], [place] [address] Apr, [facility] [address] [id number] [address] [place] [address], [place] [address] Apr, [facility] [address] [id number] [address] [place] [address], [place] [address] March, [facility] [address] [id number] [address] [place] [address] March, [facility] [address] [id number] [address] [place] [address], [place] [address] Jan, [facility] [address] [id number] [address] [place] [address], [place] [address] Jan, [facility] [address] [id number] [address] [place] [address], [place] [address] Jan, [facility] [address] [id number] [address] [place] [address], [place] [address] Jan, [facility] [address] [id number] [address] [place] [address], [place] [address] Jan, [facility] [address] [id number] [address] [place] [address], [place] [address] Jan, [facility] [address] [id number] [address] [place] [address], [place] [address] Dec, [facility] [address] [id number] [address] [place] [address], [place] [address] Dec, [facility] [address] [id number] [address] [place] [address], [place] [address] Oct, [facility] [address] [id number] [address] [place] [address], [place] [address] Oct, [facility] [address] [id number] [address] [place] [address], [place] [address] Oct, [facility] [address] [id number] [address] [place] [address], [place] [address] Oct, [facility] [address] [id number] [address] [place] [address], [place] [address] Jul, [facility] [address] [id number] [address] [place] [address], [place] [address] Jul, [facility] [address] [id number] [address] [place] [address], [place] [address] Jul, [facility] [address] [id number] [address] [place] [address], [place] [address] Jun, [facility] [address] [id number] [address] [place] [address], [place] [address] Jun, [facility] [address] [id number] [address] [place] [address], [place] [address] May, [facility] [address] [id number] [address] [place] [address], [place] [address] May, [facility] [address] [id number] [address] [place] [address], [place] [address] March, [facility] [address] [id number] [address] [place] [address], [place] [address] March, [facility] [address] [id number] [address] [place] [address], [place] [address] Feb, [facility] [address] [id number] [address] [place] [address], [place] [address] Feb, [facility] [address] [id number] [address] [place] [address], [place] [address] Jan, [facility] [address] [id number] [address] [place] [address], [place] [address] 25 Dec, 2012 [facility] [address] [id number] [address] [place] [address], [place] [address] 19 Dec, 2012 [facility] [address] [id number] [address] [place] [address], [place] [address] 15 Dec, 2012 [facility] [address] [id number] [address] [place] [address], [place] [address] 14 Dec, 2012 [facility] [address] [id number] [address] [place] [address], [place] [address] 13 Dec, 2012 [facility] [address] [id number] [address] [place] [address], [place] [address] Nov, [facility] [address] [id number] [address] [place] [address], [place] [address] Oct, [facility] [address] [id number] [address] [place] [address], [place] [address] Oct, [facility] [address] [id number] [address] [place] [address], [place] [address] Aug, [facility] [address] [id number] [address] [place] [address], [place] [address] Aug, [facility] [address] [id number] [address] [place] [address], [place] [address] Aug, [facility] [address] [id number] [address] [place] [address], [place] [address] Aug, [facility] [address] [id number] [address] [place] [address], [place] [address] Aug, [facility] [address] [id number] [address] [place] [address], [place] [address] Jul, [facility] [address] [id number] [address] [place] [address], [place] [address] Jul, [facility] [address] [id number] [address] [place] [address], [place] [address] Jun, [facility] [address] [id number] [address] [place] [address], [place] [address] Jun, [facility] [address] [id number] [address] [place] [address], [place] [address] May, [facility] [address] [id number] [address] [place] [address], [place] [address] May, [facility] [address] [id number] [address] [place] [address], [place] [address] May, [facility] [address] [id number] [address] [place] [address], [place] [address] Apr, [facility] [address] [id number] [address] [place] [address] Apr, [facility] [address] [facility] [id number] [address] [place] [address] March, [facility] [address] [facility] [id number] [address] [place] [address] March, [facility] [address] [facility] [id number] [address] [place] [address] Feb, [facility] [address] [facility] [id number] [address] [place] [address] Feb, [facility] [address] [facility] [id number] [address] [place] [address] Feb, [facility] [address] [facility] [id number] [address] [place] [address] Feb, IMMUNIZATIONS No Known Immunizations SOCIAL HISTORY Never Assessed REASON FOR VISIT [place] [place] VITAL SIGNS MEDICATIONS Unknown [...]
--- OUTSIDE RECORDS SUMMARY | 2020-06-17 08:52 | XMS REPORT ---
Author Author Barrie Wisdom Doctor Organization [facility] Address Unknown Phone Unavailable Care Team Providers Care Distribution Center Manager Name Role Phone Migration, Doctor Unavailable Unavailable PROBLEMS Type Condition ICD9-CM Code TFA02-JX Code Onset Dates Condition S tatus SNOMED Code Problem Primary insomnia F51.01 Active 397 2004 Problem Essential hypertension I10 Active 44150281 Problem Urinary hesitancy R39.11 Active 59 02335 Problem Benign prostatic hyperplasia with lower urinary tract symptoms N40.1 Active 632529844 Problem Diabetes type 2, controlled E11.9 Ac tive 98761338 Problem Controlled type 2 diabetes m ellitus without complication, without long- term current use of insulin E11.9 Active 856331604 Problem Obstructive sleep apnea G47.33 Active 84168211 Problem 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.1 Active 894948831 Problem Acute superficial venous thrombosis of left lower extremit y I82.812 Active [id number] Problem Hesitancy of micturition R39.11 Activ e [id number] ALLERGIES No Information ENCOUNTERS Encounter Location Date Diagnosis [facility] [address] [facility] [id number] [address] [place] [address] Apr, [facility] [address] [place] [id number] [address] [place] [address] March, [facility] [address] [facility] [id number] [address] [place] [address] March, [facility] [address] [place] [id number] [address] [place] [address] March, [facility] [address] [place] [id number] [address] [place] [address] March, [facility] [address] [facility] [id number] [address] [place] [address] Feb, Moderate episode of recurren t major depressive disorder F33.1 [facility] [address] [place] [id number] [address] [place] [address] Feb, [place] [address] [address] Feb, Moderate episode of recurren t major depressive disorder F33.1 [place] [address] [place] [id number] [address] [place] [address] Feb, Diabetes type 2, controlled E11.9 and Essential hypertension I10 [place] [address] [address] Jan, [place] [address] [address] Jan, Callus of foot L84 [place] [address] [address] Jan, Moderate episode of recurren t major depressive disorder F33.1 [place] [address] [address] Jan, Moderate episode of recurren t major depressive disorder F33.1 [place] [address] [address] Dec, Moderate episode of recurren t major depressive disorder F33.1 [place] [address] [place] [id number] [address] [place] [address] Dec, Candidiasis of the esophagus B37.81 [place] [address] [place] [id number] [address] [place] [address] Dec, [facility] [address] [place] [id number] [address] [place] [address] Dec, Fecal occult blood test posi tive R19.5 and Anemia, unspecified type D64.9 [place] [address] [place] [id number] [address] [place] [address] Nov, Stool color black K92.1 [place] [address] [place] [id number] [place] [address] Nov, Stool color black K92.1 [facility] [address] [id number] [address] [place] [address] Nov, Stool color black K92.1 [facility] [address] [id number] [address] [place] [address] Nov, [facility] [address] [id number] [address] [place] [address] Nov, Moderate episode of recurren t major depressive disorder F33.1 [place] [address] [id number] [address] [place] [address] Oct, Moderate episode of recurren t major depressive disorder F33.1 [place] [address] [facility] [id number] [address] [place] [address] Oct, Callus of foot L84 and Contr olled type 2 diabetes mellitus without complication, without long-term current use of insulin E11.9 [place] [address] [id number] [address] [place] [address] Oct, Moderate episode of recurren t major depressive disorder F33.1 [place] [id number] [facility] [id number] [address] [place] [address] Aug, Mood disorder F39 [place] [address] [facility] [id number] [address] [place] [address] 05 Aug, 2018 Encounter for immunization Z 23 [facility] [address] [id number] [address] [place] [address] Jul, Moderate episode of recurren t major depressive disorder F33.1 [facility] [address] [id number] [address] [place] [address] 24 Jul, 2018 Moderate episode of recurren t major depressive disorder F33.1 [facility] [address] [facility] [id number] [address] [place] [address] May, [facility] [address] [id number] [address] [place] [address] May, Moderate episode of recurren t major depressive disorder F33.1 [facility] [address] [id number] [address] [place] [address] May, Moderate episode of recurren t major depressive disorder F33.1 [facility] [address] [id number] [address] [place] [address] Apr, Benign prostatic hyperplasia with lower urinary tract symptoms N40.1 and Hesitancy of micturition R39.11 [facility] [address] [id number] [address] [place] [address] Apr, Moderate episode of recurren t major depressive disorder F33.1 [facility] [address] [id number] [address] [place] [address] Apr, Unspecified mood [affective] disorder F39 and Primary insomnia F51.01 [place] [address] [id number] [address] [place] [address] Apr, Primary insomnia F51.01 [facility] [address] [id number] [address] [place] [address] March, Foot callus L84 [facility] [address] [facility] [id number] [address] [place] [address] Feb, Medicare annual wellness vis it, initial Z00.00 [facility] [address] [id number] [address] [place] [address] Feb, Acute superficial venous thr ombosis of left lower extremity I82.812 [facility] [address] [id number] [address] [place] [address] Feb, [facility] [address] [id number] [address] [place] [address] Feb, [facility] [address] [facility] [id number] [address] [place] [address] Feb, Acute superficial venous thr ombosis of left lower extremity I82.812 [facility] [address] [facility] [id number] [address] [place] [address] Feb, [facility] [address] [facility] [id number] [address] [place] [address] Feb, Other specified soft tissue disorders M79.89 and Pain in left leg M79.605 [facility] [address] [place] [id number] [address] [place] [address] Jan, Obstructive sleep apnea G47. 33 [facility] [address] [facility] [id number] [address] [place] [address] Dec, Obstructive sleep apnea G47. 33 and Mood disorder F39 [place] [address] [place] [id number] [address] [place] [address] Dec, [facility] [address] [place] [id number] [address] [place] [address] Dec, [facility] [address] [address] Nov, Diabetes type 2, controlled E11.9 [place] [address] [address] Nov, Encounter for immunization Z 23 [facility] [address] [place] [id number] [address] [place] [address] Nov, Primary insomnia F51.01 [facility] [address] [place] [id number] [address] [place] [address] Oct, Medicare annual wellness vis it, subsequent Z00.00 and Mood disorder F39 [place] [address] [place] [id number] [address] [place] [address] Sep, Mood disorder F39 [facility] [address] [place] [id number] [address] [place] [address] Aug, Primary insomnia F51.01 and Urinary hesitancy R39.11 [place] [address] [place] [id number] [address] [place] [address] Aug, Primary insomnia F51.01 [facility] [address] [facility] [id number] [address] [place] [address] Jul, Diabetes type 2, controlled E11.9 ; Primary insomnia F51.01 and Mood disorder F39 [facility] [address] [id number] [id number] Jun, Mood disorder F39 [facility] [address] [id number] [place] [id number] Jun, [facility] [address] [facility] [id number] [address] [place] [address] May, Nightmares F51.5 [facility] [address] [facility] [id number] [address] [place] [address] May, Cognitive complaints R41.9 ; Unspecified mood [affective] disorder F39 and Primary insomnia F51.01 [facility] [address] [facility] [id number] [address] [place] [address] Apr, Mood disorder F39 and Primar y insomnia F51.01 [facility] [address] [facility] [id number] [address] [place] [address] Apr, Cognitive complaints R41.9 a nd Unspecified mood [affective] disorder F39 [facility] [address] [facility] [id number] [address] [place] [address] Apr, Cognitive complaints R41.9 a nd Unspecified mood [affective] disorder F39 [facility] [address] [facility] [id number] [address] [place] [address] March, [facility] [address] [facility] [id number] [address] [place] [address] March, Diabetes type 2, controlled E11.9 and Essential hypertension I10 [facility] [address] [facility] [id number] [address] [place] [address] March, Primary insomnia F51.01 ; Di abetes type 2, controlled E11.9 and Pain in right shoulder M25.511 [facility] [address] [facility] [id number] [address] [place] [address] March, Cognitive complaints R41.9 a nd Unspecified mood [affective] disorder F39 [facility] [address] [facility] [id number] [address] [place] [address] Feb, Other specified mental disor ders due to known physiological condition F06.8 [place] [address] [place] [id number] [address] [place] [address] Jan, [place] [address] [place] [id number] [address] [place] [address] Jan, [place] [address] [place] [id number] [address] [place] [address] Dec, Diabetes type 2, controlled E11.9 ; Hypertension, benign I10 and Mood disorder F39 [place] [address] [place] [id number] [address] [place] [phone] 08 Dec, 2016 Medicare annual wellness vis it, initial Z00.00 [place] [address] [address] Nov, Medicare welcome exam Z00.00 ; Encounter for immunization Z23 ; Medicare annual wellness visit, initial Z00.00 and Medicare annual wellness visit, subsequent Z00.00 [place] [address] [place] [id number] [address] [place] [address] Oct, [place] [address] [place] [id number] [address] [place] [address] Sep, [place] [address] [place] [id number] [address] [place] [address] Aug, Encounter for immunization Z 23 and Callus L84 [place] [address] [place] [id number] [address] [place] [address] Aug, [place] [address] [place] [id number] [address] [place] [address] Jul, Diabetes type 2, controlled E11.9 [facility] [address] [id number] [address] [place] [address] Jul, Diabetes type 2, controlled E11.9 [facility] [address] [id number] [address] [place] [address] Jun, [facility] [address] [id number] [address] [place] [address] Jun, Hypertension, benign I10 ; M ood disorder F39 and Diabetes type 2, controlled E11.9 [facility] [address] [id number] [address] [place] [address] Jun, Mood disorder F39 [facility] [address] [id number] [address] [place] [address] May, [facility] [address] [id number] [address] [place] [address] May, Mood disorder F39 [facility] [address] [id number] [address] [place] [address] May, Mood disorder F39 [facility] [address] [id number] [address] [place] [address] Apr, Controlled type 2 diabetes m ellitus without complication, without long-term current use of insulin E11.9 ; Essential hypertension I10 and Pain in right shoulder M25.511 [facility] [address] [id number] [address] [place] [address] Apr, Mood disorder F39 [facility] [address] [id number] [address] [place] [address] Apr, Pre-op evaluation Z01.818 [facility] [address] [id number] [address] [place] [address] March, Mood disorder F39 [facility] [address] [id number] [address] [place] [address] Feb, [facility] [address] [id number] [address] [place] [address] 18 Feb, 2016 Shoulder pain, right M25.511 [facility] [address] [id number] [address] [place] [address] Feb, Shoulder pain, right M25.511 [facility] [address] [id number] [address] [place] [address] Feb, Shoulder pain, right M25.511 [facility] [address] [id number] [address] [place] [address] Feb, Shoulder pain, right M25.511 [facility] [address] [id number] [address] [place] [address] Jan, Shoulder pain, right M25.511 [facility] [address] [id number] [address] [place] [address] Jan, Shoulder pain, right M25.511 [facility] [address] [facility] [id number] [address] [place] [address] 16 Jan, 2016 [facility] [address] [id number] [address] [place] [address] Jan, Diabetes type 2, controlled E11.9 [facility] [address] [facility] [id number] [address] [place] [address] Jan, Shoulder pain, right M25.511 ; Diabetes mellitus without mention of complication, type II or unspecified type, not stated as uncontrolled 250.00 and Diabetes type 2, controlled E11.9 [facility] [address] [id number] [address] [place] [address] Jan, [facility] [address] [facility] [id number] [address] [place] [address] Jan, [facility] [address] [facility] [id number] [address] [place] [address] Dec, [facility] [address] [facility] [id number] [address] [place] [address] Oct, Callus of foot L84 [facility] [address] [address] Oct, Anxiety F41.9 ; Callus of fo ot L84 and Dysuria R30.0 [facility] [address] [address] Sep, Diabetes mellitus without me ntion of complication, type II or unspecified type, not stated as uncontrolled 250.00 [facility] [address] [address] Aug, Diabetes mellitus without me ntion of complication, type II or unspecified type, not stated as uncontrolled 250.00 [facility] [address] [address] Jul, [facility] [address] [address] Jul, [facility] [address] [address] Jul, Diabetes mellitus without me ntion of complication, type II or unspecified type, not stated as uncontrolled 250.00 ; Essential hypertension, benign 401.1 and Anxiety state, unspecified 300.00 [facility] [address] [address] Jul, [facility] [address] [address] Jun, [facility] [address] [address] Jun, [facility] [address] [address] May, [facility] [address] [address] May, [facility] [address] [address] Apr, [facility] [address] [id number] [address] [place] [address], [place] [address] Apr, Mood disorder 296.90 [facility] [address] [id number] [address] [place] [address], [place] [address] March, [facility] [address] [id number] [address] [place] [address], [place] [address] Feb, [facility] [address] [id number] [address] [place] [address], [place] [address] Feb, [facility] [address] [id number] [address] [place] [address], [place] [address] Jan, [facility] [address] [id number] [address] [place] [address], [place] [address] Jan, [facility] [address] [id number] [address] [place] [address], [place] [address] Jan, [facility] [address] [id number] [address] [place] [address], [place] [address] Jan, [facility] [address] [id number] [address] [place] [address], [place] [address] Jan, [facility] [address] [id number] [address] [place] [address], [place] [address] Jan, [facility] [address] [id number] [address] [place] [address], [place] [address] Jan, [facility] [address] [id number] [address] [place] [address] Jan, [facility] [address] [id number] [address] [place] [address], [place] [address] Dec, [facility] [address] [id number] [address] [place] [address], [place] [address] Dec, [facility] [address] [id number] [address] [place] [address], [place] [address] Nov, [facility] [address] [id number] [address] [place] [address] Nov, [facility] [address] [id number] [address] [place] [address], [place] [address] Nov, [facility] [address] [id number] [address] [place] [address], [place] [address] Nov, [facility] [address] [id number] [address] [place] [address], [place] [address] Oct, [facility] [address] [id number] [address] [place] [address], [place] [address] Oct, [facility] [address] [id number] [address] [place] [address], [place] [address] Oct, [facility] [address] [id number] [address] [place] [address], [place] [address] Oct, [facility] [address] [id number] [address] [place] [address], [place] [address] Oct, [facility] [address] [id number] [address] [place] [address], [place] [address] Oct, [facility] [address] [id number] [address] [place] [address], [place] [address] Oct, [facility] [address] [id number] [address] [place] [address], [place] [address] Oct, [facility] [address] [id number] [address] [place] [address], [place] [address] Oct, [facility] [address] [id number] [address] [place] [address], [place] [address] Oct, [facility] [address] [id number] [address] [place] [address], [place] [address] Sep, [facility] [address] [id number] [address] [place] [address], [place] [address] Sep, [facility] [address] [id number] [address] [place] [address], [place] [address] 18 Sep, 2014 [facility] [address] [id number] [address] [place] [address], [place] [address] Sep, [facility] [address] [id number] [address] [place] [address], [place] [address] Sep, [facility] [address] [id number] [address] [place] [address], [place] [address] Sep, [facility] [address] [id number] [address] [place] [address], [place] [address] Aug, [facility] [address] [id number] [address] [place] [address], [place] [address] Aug, [facility] [address] [id number] [address] [place] [address], [place] [address] Jul, [facility] [address] [id number] [address] [place] [address], [place] [address] Jul, [facility] [address] [id number] [address] [place] [address], [place] [address] Jun, [facility] [address] [id number] [address] [place] [address], [place] [address] Jun, [facility] [address] [id number] [address] [place] [address], [place] [address] May, [facility] [address] [id number] [address] [place] [address], [place] [address] May, [facility] [address] [id number] [address] [place] [address], [place] [address] Apr, [facility] [address] [id number] [address] [place] [address], [place] [address] Apr, [facility] [address] [id number] [address] [place] [address], [place] [address] Apr, [facility] [address] [id number] [address] [place] [address], [place] [address] Apr, [facility] [address] [id number] [address] [place] [address], [place] [address] March, [facility] [address] [id number] [facility] [place] [address] March, [facility] [address] [id number] [address] [place] [address], [place] [address] Jan, [facility] [address] [id number] [address] [place] [address], [place] [address] Jan, [facility] [address] [id number] [address] [place] [address], [place] [address] Jan, [facility] [address] [id number] [address] [place] [address], [place] [address] Jan, [facility] [address] [id number] [address] [place] [address], [place] [address] Jan, [facility] [address] [id number] [address] [place] [address], [place] [address] Jan, [facility] [address] [id number] [address] [place] [address], [place] [address] Dec, [facility] [address] [id number] [address] [place] [address], [place] [address] Dec, [facility] [address] [id number] [address] [place] [address], [place] [address] Oct, [facility] [address] [id number] [address] [place] [address], [place] [address] Oct, [facility] [address] [id number] [address] [place] [address], [place] [address] Oct, [facility] [address] [id number] [address] [place] [address], [place] [address] Oct, [facility] [address] [id number] [address] [place] [address], [place] [address] Jul, [facility] [address] [id number] [address] [place] [address], [place] [address] Jul, [facility] [address] [id number] [address] [place] [address], [place] [address] Jul, [facility] [address] [id number] [address] [place] [address], [place] [address] Jun, [facility] [address] [id number] [address] [place] [address], [place] [address] Jun, [facility] [address] [id number] [address] [place] [address], [place] [address] May, [facility] [address] [id number] [address] [place] [address], [place] [address] May, [facility] [address] [id number] [address] [place] [address], [place] [address] March, [facility] [address] [id number] [address] [place] [address], [place] [address] March, [facility] [address] [id number] [address] [place] [address], [place] [address] Feb, [facility] [address] [id number] [address] [place] [address], [place] [address] Feb, [facility] [address] [id number] [address] [place] [address], [place] [address] Jan, [facility] [address] [id number] [address] [place] [address], [place] [address] 25 Dec, 2012 [facility] [address] [id number] [address] [place] [address], [place] [address] 19 Dec, 2012 [facility] [address] [id number] [address] [place] [address], [place] [address] 15 Dec, 2012 [facility] [address] [id number] [address] [place] [address], [place] [address] 14 Dec, 2012 [facility] [address] [id number] [address] [place] [address], [place] [address] 13 Dec, 2012 [facility] [address] [id number] [address] [place] [address], [place] [address] Nov, [facility] [address] [id number] [address] [place] [address], [place] [address] Oct, [facility] [address] [id number] [address] [place] [address], [place] [address] Oct, [facility] [address] [id number] [address] [place] [address], [place] [address] Aug, [facility] [address] [id number] [address] [place] [address], [place] [address] Aug, [facility] [address] [id number] [address] [place] [address], [place] [address] Aug, [facility] [address] [id number] [address] [place] [address], [place] [address] Aug, [facility] [address] [id number] [address] [place] [address], [place] [address] Aug, [facility] [address] [id number] [address] [place] [address], [place] [address] Jul, [facility] [address] [id number] [address] [place] [address], [place] [address] Jul, [facility] [address] [id number] [address] [place] [address], [place] [address] Jun, [facility] [address] [id number] [address] [place] [address], [place] [address] Jun, [facility] [address] [id number] [address] [place] [address], [place] [address] May, [facility] [address] [id number] [address] [place] [address], [place] [address] May, [facility] [address] [id number] [address] [place] [address], [place] [address] May, [facility] [address] [id number] [address] [place] [address], [place] [address] Apr, [facility] [address] [id number] [address] [place] [id number] Apr, [facility] [address] [facility] [id number] [address] [place] [id number] March, [facility] [address] [facility] [id number] [address] [place] [id number] March, [facility] [address] [facility] [id number] [address] [place] [id number] Feb, [facility] [address] [facility] [id number] [address] [place] [id number] Feb, [facility] [address] [facility] [id number] [address] [place] [id number] Feb, [facility] [address] [facility] [id number] [address] [place] [phone] Feb, IMMUNIZATIONS No Known Immunizations SOCIAL HISTORY Never Assessed REASON FOR VISIT EMR-[facility] PLAN OF CARE VITAL SIGNS MEDICATIONS Unknown [...]
--- OUTSIDE RECORDS SUMMARY | 2020-06-17 08:52 | XMS REPORT ---
Author Author Barrie Wisdom Doctor Organization [facility] Address Unknown Phone Unavailable Care Team Providers Care Enhanced Environmental Operator Name Role Phone Migration, Doctor Unavailable Unavailable PROBLEMS Type Condition ICD9-CM Code SER61-MW Code Onset Dates Condition S tatus SNOMED Code Problem Primary insomnia F51.01 Active 397 2004 Problem Essential hypertension I10 Active [id number] Problem Urinary hesitancy R39.11 Active 59 34478 Problem Benign prostatic hyperplasia with lower urinary tract symptoms N40.1 Active 312206734 Problem Diabetes type 2, controlled E11.9 Ac tive 47047529 Problem Controlled type 2 diabetes m ellitus without complication, without long- term current use of insulin E11.9 Active 941406838 Problem Obstructive sleep apnea G47.33 Active 37597191 Problem 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.1 Active 671451691 Problem Acute superficial venous thrombosis of left lower extremit y I82.812 Active [id number] Problem Hesitancy of micturition R39.11 Activ e [id number] ALLERGIES No Information ENCOUNTERS Encounter Location Date Diagnosis [facility] [address] [facility] [id number] [address] [place] [id number] Apr, [facility] [address] [facility] [id number] [address] [place] [id number] Feb, [facility] [address] [facility] [id number] [address] [place] [id number] Feb, [facility] [address] [facility] [id number] [address] [place] [id number] Jan, [facility] [address] [facility] [id number] [address] [place] [id number] Jan, Moderate episode of recurren t major depressive disorder F33.1 [facility] [address] [facility] [id number] [address] [place] [phone] Jan, Moderate episode of recurren t major depressive disorder F33.1 [facility] [address] [facility] [id number] [address] [place] [id number] 26 Dec, 2018 Moderate episode of recurren t major depressive disorder F33.1 [facility] [address] [facility] [id number] [address] [place] [id number] 11 Dec, 2018 Candidiasis of the esophagus B37.81 [facility] [address] [facility] [id number] [address] [place] [id number] 08 Dec, 2018 [facility] [address] [facility] [id number] [address] [place] [id number] 04 Dec, 2018 Fecal occult blood test posi tive R19.5 and Anemia, unspecified type D64.9 [facility] [address] [facility] [id number] [address] [place] [address] Nov, Stool color black K92.1 [facility] [address] [facility] [id number] [address] [place] [phone] Nov, Stool color black K92.1 [facility] [address] [facility] [id number] [address] [place] [phone] Nov, Stool color black K92.1 [facility] [address] [facility] [id number] [address] [place] [phone] Nov, [facility] [address] [facility] [id number] [address] [place] [phone] Nov, Moderate episode of recurren t major depressive disorder F33.1 [facility] [address] [facility] [id number] [address] [place] [phone] Oct, Moderate episode of recurren t major depressive disorder F33.1 [facility] [address] [facility] [id number] [address] [place] [id number] 18 Oct, 2018 Callus of foot L84 and Contr olled type 2 diabetes mellitus without complication, without long-term current use of insulin E11.9 [facility] [address] [facility] [id number] [address] [place] [phone] Oct, Moderate episode of recurren t major depressive disorder F33.1 [facility] [address] [id number] [address] [place] [phone] Aug, Mood disorder F39 [facility] [address] [id number] [address] [place] [id number] 05 Aug, 2018 Encounter for immunization Z 23 [facility] [address] [id number] [address] [place] [id number] 26 Jul, 2018 Moderate episode of recurren t major depressive disorder F33.1 [facility] [address] [id number] [address] [place] [id number] 24 Jul, 2018 Moderate episode of recurren t major depressive disorder F33.1 [facility] [address] [id number] [address] [place] [id number] May, [facility] [address] [id number] [address] [place] [phone] May, Moderate episode of recurren t major depressive disorder F33.1 [facility] [address] [id number] [address] [place] [id number] May, Moderate episode of recurren t major depressive disorder F33.1 [facility] [address] [id number] [address] [place] [phone] Apr, Benign prostatic hyperplasia with lower urinary tract symptoms N40.1 and Hesitancy of micturition R39.11 [facility] [address] [id number] [address] [place] [id number] Apr, Moderate episode of recurren t major depressive disorder F33.1 [facility] [address] [id number] [address] [place] [id number] Apr, Unspecified mood [affective] disorder F39 and Primary insomnia F51.01 [facility] [address] [id number] [address] [place] [id number] 08 Apr, 2018 Primary insomnia F51.01 [facility] [facility] [address] [id number] [address] [place] [phone] March, Foot callus L84 [facility] [address] [id number] [address] [place] [id number] Feb, Medicare annual wellness vis it, initial Z00.00 [facility] [address] [id number] [address] [place] [id number] Feb, Acute superficial venous thr ombosis of left lower extremity I82.812 [facility] [address] [id number] [address] [place] [phone] Feb, [facility] [address] [id number] [address] [place] [phone] Feb, [facility] [address] [facility] [id number] [address] [place] [id number] Feb, Acute superficial venous thr ombosis of left lower extremity I82.812 [facility] [address] [id number] [address] [place] [address] Feb, [facility] [address] [id number] [address] [place] [address] Feb, Other specified soft tissue disorders M79.89 and Pain in left leg M79.605 [facility] [address] [facility] [id number] [address] [place] [id number] Jan, Obstructive sleep apnea G47. 33 [facility] [address] [facility] [id number] [address] [place] [phone] Dec, Obstructive sleep apnea G47. 33 and Mood disorder F39 [facility] [address] [id number] [address] [place] [id number] Dec, [facility] [address] [facility] [id number] [address] [place] [phone] Dec, [facility] [address] [facility] [id number] [address] [place] [id number] Nov, Diabetes type 2, controlled E11.9 [facility] [address] [facility] [id number] [address] [place] [phone] Nov, Encounter for immunization Z 23 [facility] [address] [facility] [id number] [address] [place] [phone] Nov, Primary insomnia F51.01 [facility] [address] [facility] [id number] [address] [place] [id number] 07 Oct, 2017 Medicare annual wellness vis it, subsequent Z00.00 and Mood disorder F39 [facility] [address] [facility] [id number] [address] [place] [id number] Sep, Mood disorder F39 [facility] [address] [facility] [id number] [address] [place] [address] Aug, Primary insomnia F51.01 and Urinary hesitancy R39.11 [facility] [address] [facility] [id number] [address] [place] [phone] Aug, Primary insomnia F51.01 [facility] [address] [facility] [id number] [address] [place] [id number] 07 Jul, 2017 Diabetes type 2, controlled E11.9 ; Primary insomnia F51.01 and Mood disorder F39 [place] [id number] [facility] [address] [id number] [id number] Jun, Mood disorder F39 [facility] [address] [id number] [id number] Jun, [facility] [address] [facility] [id number] [address] [place] [phone] May, Nightmares F51.5 [facility] [address] [facility] [id number] [address] [place] [id number] May, Cognitive complaints R41.9 ; Unspecified mood [affective] disorder F39 and Primary insomnia F51.01 [facility] [address] [facility] [id number] [address] [place] [id number] Apr, Mood disorder F39 and Primar y insomnia F51.01 [facility] [address] [id number] [address] [place] [phone] Apr, Cognitive complaints R41.9 a nd Unspecified mood [affective] disorder F39 [facility] [address] [id number] [address] [place] [phone] Apr, Cognitive complaints R41.9 a nd Unspecified mood [affective] disorder F39 [facility] [address] [id number] [address] [place] [id number] March, [facility] [address] [id number] [address] [place] [phone] March, Diabetes type 2, controlled E11.9 and Essential hypertension I10 [facility] [address] [facility] [id number] [address] [place] [id number] March, Primary insomnia F51.01 ; Di abetes type 2, controlled E11.9 and Pain in right shoulder M25.511 [facility] [address] [id number] [address] [place] [address] March, Cognitive complaints R41.9 a nd Unspecified mood [affective] disorder F39 [facility] [address] [id number] [address] [place] [phone] Feb, Other specified mental disor ders due to known physiological condition F06.8 [facility] [address] [id number] [address] [place] [id number] Jan, [facility] [address] [id number] [address] [place] [phone] Jan, [facility] [address] [facility] [id number] [address] [place] [phone] Dec, Diabetes type 2, controlled E11.9 ; Hypertension, benign I10 and Mood disorder F39 [facility] [address] [facility] [id number] [address] [place] [id number] 08 Dec, 2016 Medicare annual wellness vis it, initial Z00.00 [facility] [address] [id number] [address] [place] [id number] 05 Nov, 2016 Medicare welcome exam Z00.00 ; Encounter for immunization Z23 ; Medicare annual wellness visit, initial Z00.00 and Medicare annual wellness visit, subsequent Z00.00 [facility] [address] [id number] [address] [place] [phone] Oct, [facility] [address] [id number] [address] [place] [phone] Sep, [facility] [address] [id number] [address] [place] [id number] Aug, Encounter for immunization Z 23 and Callus L84 [facility] [address] [id number] [address] [place] [phone] Aug, [facility] [address] [id number] [address] [place] [id number] Jul, Diabetes type 2, controlled E11.9 [facility] [address] [id number] [address] [place] [id number] Jul, Diabetes type 2, controlled E11.9 [facility] [address] [id number] [address] [place] [id number] Jun, [facility] [address] [id number] [address] [place] [phone] Jun, Hypertension, benign I10 ; M ood disorder F39 and Diabetes type 2, controlled E11.9 [facility] [address] [id number] [address] [place] [id number] Jun, Mood disorder F39 [facility] [address] [id number] [address] [place] [phone] May, [facility] [address] [id number] [address] [place] [id number] May, Mood disorder F39 [facility] [address] [id number] [address] [place] [id number] May, Mood disorder F39 [facility] [address] [id number] [address] [place] [phone] Apr, Controlled type 2 diabetes m [place] without complication, without long-term current use of insulin E11.9 ; Essential hypertension I10 and Pain in right shoulder M25.511 [facility] [address] [id number] [address] [place] [address] Apr, Mood disorder F39 [facility] [address] [id number] [address] [place] [id number] Apr, Pre-op evaluation Z01.818 [facility] [address] [id number] [address] [place] [id number] March, Mood disorder F39 [facility] [address] [id number] [address] [place] [address] Feb, [facility] [address] [id number] [address] [place] [id number] Feb, Shoulder pain, right M25.511 [facility] [address] [id number] [address] [place] [address] Feb, Shoulder pain, right M25.511 [facility] [address] [id number] [address] [place] [address] Feb, Shoulder pain, right M25.511 [facility] [address] [id number] [address] [place] [id number] Feb, Shoulder pain, right M25.511 [facility] [address] [id number] [address] [place] [id number] Jan, Shoulder pain, right M25.511 [facility] [address] [id number] [address] [place] [address] Jan, Shoulder pain, right M25.511 [facility] [address] [id number] [address] [place] [id number] Jan, [facility] [address] [id number] Jan, Diabetes type 2, controlled E11.9 [place] [address] [address] Jan, Shoulder pain, right M25.511 ; Diabetes mellitus without mention of complication, type II or unspecified type, not stated as uncontrolled 250.00 and Diabetes type 2, controlled E11.9 [place] [address] [id number] Jan, [place] [address] [id number] Jan, [place] [address] [id number] Dec, [place] [address] [address] Oct, Callus of foot L[address] [address] Oct, Anxiety F41.9 ; Callus of fo ot L84 and Dysuria R30.[address] [address] Sep, Diabetes mellitus without me ntion of complication, type II or unspecified type, not stated as uncontrolled 250.00 [place] [address] [id number] Aug, Diabetes mellitus without me ntion of complication, type II or unspecified type, not stated as uncontrolled 250.00 [place] [address] [id number] Jul, [place] [address] [id number] Jul, [place] [address] [address] Jul, Diabetes mellitus without me ntion of complication, type II or unspecified type, not stated as uncontrolled 250.00 ; Essential hypertension, benign 401.1 and Anxiety state, unspecified 300.00 [facility] [address] [id number] [address] [place] [id number] Jul, [facility] [address] [id number] [address] [place] [id number] Jun, [facility] [address] [id number] [address] [place] [phone] Jun, [facility] [address] [id number] [address] [place] [id number] May, [facility] [address] [id number] [address] [place] [id number] May, [facility] [address] [id number] [address] [place] [id number] Apr, [facility] [address] [id number] [address] [place] [address] Apr, Mood disorder 296.90 [facility] [address] [id number] [address] [place] [id number] March, [facility] [address] [facility] [id number] [address] [place] [phone] Feb, [facility] [address] [id number] [address] [place] [id number] Feb, [facility] [address] [id number] [address] [place] [id number] Jan, [facility] [address] [id number] [address] [place] [phone] Jan, [facility] [address] [id number] [address] [place] [id number] Jan, [facility] [address] [id number] [address] [place] [phone] Jan, [facility] [address] [id number] [address] [place] [address], [place] [address] Jan, [facility] [address] [id number] [address] [place] [address], [place] [address] Jan, [facility] [address] [id number] [address] [place] [address], [place] [id number] Jan, [facility] [address] [id number] [address] [place] [address], [place] [address] Jan, [facility] [address] [id number] [address] [place] [address], [place] [id number] Dec, [facility] [address] [id number] [address] [place] [address], [place] [id number] Dec, [facility] [address] [id number] [address] [place] [address], [place] [id number] Nov, [facility] [address] [id number] [address] [place] [address], [place] [address] Nov, [facility] [address] [id number] [address] [place] [address], [place] [id number] Nov, [facility] [address] [id number] [address] [place] [address], [place] [address] Nov, [facility] [address] [id number] [address] [place] [address], [place] [id number] Oct, [facility] [address] [id number] [address] [place] [address], [place] [id number] Oct, [facility] [address] [id number] [address] [place] [address], [place] [address] Oct, [facility] [address] [id number] [address] [place] [address], [place] [id number] Oct, [facility] [address] [id number] [address] [place] [address], [place] [id number] Oct, [facility] [address] [id number] [address] [place] [address], [place] [address] Oct, [facility] [address] [id number] [address] [place] [address], [place] [id number] 17 Oct, 2014 [facility] [address] [id number] [address] [place] [address], [place] [address] 17 Oct, 2014 [facility] [address] [id number] [address] [place] [address], [place] [address] 15 Oct, 2014 [facility] [address] [id number] [address] [place] [address], [place] [id number] 15 Oct, 2014 [facility] [address] [id number] [address] [place] [address], [place] [address] Sep, [facility] [address] [id number] [address] [place] [address], [place] [address] Sep, [facility] [address] [id number] [address] [place] [address], [place] [id number] 18 Sep, 2014 [facility] [address] [id number] [address] [place] [address], [place] [address] 18 Sep, 2014 [facility] [address] [id number] [address] [place] [address], [place] [id number] 18 Sep, 2014 [facility] [address] [id number] [address] [place] [address], [place] [address] 18 Sep, 2014 [facility] [address] [id number] [address] [place] [address], [place] [id number] 16 Aug, 2014 [facility] [address] [id number] [address] [place] [id number] 16 Aug, 2014 [facility] [address] [id number] [address] [place] [address], [place] [address] Jul, [facility] [address] [id number] [address] [place] [address], [place] [id number] 19 Jul, 2014 [facility] [address] [id number] [address] [place] [address], [place] [id number] Jun, [facility] [address] [id number] [address] [place] [phone] Jun, [facility] [address] [id number] [address] [place] [address], [place] [address] May, [facility] [address] [id number] [address] [place] [address], [place] [address] May, [facility] [address] [id number] [address] [place] [address], [place] [address] Apr, [facility] [address] [id number] [address] [place] [address], [place] [address] Apr, [facility] [address] [id number] [address] [place] [address], [place] [address] Apr, [facility] [address] [id number] [address] [place] [address], [place] [address] Apr, [facility] [address] [id number] [address] [place] [address], [place] [id number] March, [facility] [address] [id number] [address] [place] [address], [place] [address] March, [facility] [address] [id number] [address] [place] [address], [place] [id number] Jan, [facility] [address] [id number] [address] [place] [address], [place] [id number] Jan, [facility] [address] [id number] [address] [place] [address], [place] [id number] Jan, [facility] [address] [id number] [address] [place] [address], [place] [id number] Jan, [facility] [address] [id number] [address] [place] [address], [place] [id number] Jan, [facility] [address] [id number] [address] [place] [address], [place] [id number] Jan, [facility] [address] [id number] [address] [place] [address], [place] [id number] Dec, [facility] [address] [id number] [address] [place] [address], [place] [id number] 04 Dec, 2013 [facility] [address] [id number] [address] [place] [address], [place] [id number] Oct, [facility] [address] [id number] [address] [place] [address], [place] [id number] Oct, [facility] [address] [id number] [address] [place] [address], [place] [id number] Oct, [facility] [address] [id number] [address] [place] [address], [place] [id number] Oct, [facility] [address] [id number] [address] [place] [address], [place] [id number] Jul, [facility] [address] [id number] [address] [place] [address], [place] [id number] Jul, [facility] [address] [id number] [address] [place] [address], [place] [id number] Jul, [facility] [address] [id number] [address] [place] [address], [place] [id number] Jun, [facility] [address] [id number] [address] [place] [address], [place] [id number] Jun, [facility] [address] [id number] [address] [place] [address], [place] [id number] May, [facility] [address] [id number] [address] [place] [address], [place] [id number] May, [facility] [address] [id number] [address] [place] [address], [place] [id number] March, [facility] [address] [id number] [address] [place] [address], [place] [id number] March, [facility] [address] [id number] [address] [place] [address], [place] [id number] Feb, [facility] [address] [id number] [address] [place], [place] [address] [address] Feb, [facility] [address] [id number] [address] [place] [address], [place] [id number] Jan, [facility] [address] [id number] [address] [place] [address], [place] [id number] Dec, [facility] [address] [id number] [address] [place] [address], [place] [id number] Dec, [facility] [address] [id number] [address] [place] [address], [place] [id number] Dec, [facility] [address] [id number] [address] [place] [address], [place] [id number] Dec, [facility] [address] [id number] [address] [place] [address], [place] [id number] Dec, [facility] [address] [id number] [address] [place] [address], [place] [id number] Nov, [facility] [address] [id number] [address] [place] [address], [place] [id number] Oct, [facility] [address] [id number] [address] [place] [address], [place] [id number] Oct, [facility] [address] [id number] [address] [place] [address], [place] [id number] Aug, [facility] [address] [id number] [address] [place] [address], [place] [id number] Aug, [facility] [address] [id number] [address] [place] [id number] Aug, [facility] [address] [id number] [address] [place] [address], [place] [id number] Aug, [facility] [address] [id number] [address] [place] [id number] Aug, [facility] [address] [id number] [address] [place] [address], [place] [id number] Jul, [facility] [address] [id number] [address] [place] [id number] Jul, [facility] [address] [id number] [address] [place] [id number] Jun, [facility] [address] [id number] [address] [place] [id number] Jun, [facility] [address] [id number] [address] [place] [id number] May, [facility] [address] [id number] [address] [place] [id number] May, [facility] [address] [id number] [address] [place] [id number] May, [facility] [address] [id number] [address] [place] [id number] Apr, [facility] [address] [id number] [address] [place] [id number] Apr, [facility] [address] [id number] [address] [place] [id number] March, [facility] [address] [id number] [address] [place] [id number] March, [facility] [address] [id number] [address] [place] [id number] Feb, [facility] [address] [id number] [address] [place] [id number] Feb, [facility] [address] [id number] [address] [place] [id number] Feb, [facility] [address] [id number] [address] [place] [id number] Feb, IMMUNIZATIONS No Known Immunizations SOCIAL HISTORY Never Assessed REASON FOR VISIT [place] [place] VITAL SIGNS MEDICATIONS Medication Instructions Dosage Frequency Start Date End Date Duration S tatus Diclofenac Sodium 75 mg 1 tablet by Oral route 2 times per day PRN Jul, Active Fluoxetine 20 mg 1 capsule by Oral route 1 time per da y add to 10 mg. Jan, Active Ativan 2 mg take 1 tablet by Oral route 2 times per day PRN Jan, Active [place] 5-325 mg take 1 tablet by Ora l route every 6 hours as needed for pain PRN Nov, Active Lisinopril-Hydrochlorothiazide 10-12.5 mg take 1 tablet by oral route once daily Jan, Active cyclobenzaprine 10 mg 1 tablet 2 times per day PRN 2013 Active Omeprazole 20 mg take 1 capsule (20 m g) by oral route once daily before a meal Jan, Active RESULTS No Results PROCEDURES No Known [...]
--- OUTSIDE RECORDS SUMMARY | 2020-06-17 08:52 | XMS REPORT ---
Author Author Barrie MCGRAW Organization [facility] Address [address] [place] [address] Care Team Providers Care Product Steward Name Role Phone YAIMA MCGRAW Unavailable PROBLEMS Type Condition ICD9-CM Code HIP07-SA Code Onset Dates Condition S tatus SNOMED Code Problem Primary insomnia F51.01 Active 397 2004 Problem Essential hypertension I10 Active 34694636 Problem Urinary hesitancy R39.11 Active 59 40383 Problem Benign prostatic hyperplasia with lower urinary tract symptoms N40.1 Active 395840082 Problem Diabetes type 2, controlled E11.9 Ac tive 15362190 Problem Controlled type 2 diabetes m ellitus without complication, without long- term current use of insulin E11.9 Active 071755578 Problem Obstructive sleep apnea G47.33 Active 58535629 Problem 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.1 Active 620040333 Problem Acute superficial venous thrombosis of left lower extremit y I82.812 Active [id number] Problem Hesitancy of micturition R39.11 Activ e [id number] ALLERGIES No Information ENCOUNTERS Encounter Location Date Diagnosis [facility] [address] [facility] [id number] [address] [place] [id number] Apr, [facility] [address] [facility] [id number] [address] [place] [phone] March, [facility] [address] [facility] [id number] [address] [place] [phone] Feb, [facility] [address] [place] [id number] [address] [place] [phone] Feb, [facility] [address] [facility] [id number] [address] [place] [id number] Feb, Moderate episode of recurren t major depressive disorder F33.1 [facility] [address] [place] [address] Feb, Diabetes type 2, controlled E11.9 and Essential hypertension I10 [place] [address] [address] Jan, [place] [address] [place] [id number] [address] [place] [address] Jan, Callus of foot L84 [place] [address] [place] [address] Jan, Moderate episode of recurren t major depressive disorder F33.1 [place] [address] [address] 05 Jan, 2019 Moderate episode of recurren t major depressive disorder F33.1 [place] [address] [address] Dec, Moderate episode of recurren t major depressive disorder F33.1 [place] [address] [place] [address] Dec, Candidiasis of the esophagus B37.81 [place] [address] [place] [id number] [address] [place] [phone] 08 Dec, 2018 [facility] [address] [place] [address] Dec, Fecal occult blood test posi tive R19.5 and Anemia, unspecified type D64.9 [place] [address] [place] [id number] [address] [place] [address] Nov, Stool color black K92.1 [place] [address] [place] [address] Nov, Stool color black K92.1 [place] [address] [place] [id number] [address] [place] [address] Nov, Stool color black K92.1 [place] [address] [place] [address] [place] [address] Nov, [facility] [address] [id number] [address] [place] [address] Nov, Moderate episode of recurren t major depressive disorder F33.1 [facility] [address] [id number] [address] [place] [phone] Oct, Moderate episode of recurren t major depressive disorder F33.1 [facility] [address] [id number] [address] [place] [id number] 18 Oct, 2018 Callus of foot L84 and Contr olled type 2 diabetes mellitus without complication, without long-term current use of insulin E11.9 [facility] [address] [id number] [address] [place] [address] 10 Oct, 2018 Moderate episode of recurren t major depressive disorder F33.1 [place] [id number] [id number] [address] [place] [phone] 17 Aug, 2018 Mood disorder F39 [facility] [address] [id number] [address] [place] [phone] 05 Aug, 2018 Encounter for immunization Z 23 [facility] [address] [id number] [address] [place] [phone] 26 Jul, 2018 Moderate episode of recurren t major depressive disorder F33.1 [facility] [address] [id number] [address] [place] [phone] Jul, Moderate episode of recurren t major depressive disorder F33.1 [facility] [address] [id number] [address] [place] [address] May, [facility] [address] [id number] [address] [place] [address] May, Moderate episode of recurren t major depressive disorder F33.1 [facility] [address] [id number] [address] [place] [address] May, Moderate episode of recurren t major depressive disorder F33.1 [facility] [address] [id number] [address] [place] [phone] Apr, Benign prostatic hyperplasia with lower urinary tract symptoms N40.1 and Hesitancy of micturition R39.11 [facility] [address] [id number] [address] [place] [address] Apr, Moderate episode of recurren t major depressive disorder F33.1 [facility] [address] [id number] [address] [place] [phone] Apr, Unspecified mood [affective] disorder F39 and Primary insomnia F51.01 [place] [address] [id number] [address] [place] [address] Apr, Primary insomnia F51.01 [place] [address] [id number] [address] [place] [address] March, Foot callus L84 [place] [address] [facility] [id number] [address] [place] [address] Feb, Medicare annual wellness vis it, initial Z00.00 [facility] [address] [id number] [address] [place] [address] Feb, Acute superficial venous thr ombosis of left lower extremity I82.812 [facility] [address] [id number] [address] [place] [phone] Feb, [facility] [address] [id number] [address] [place] [address] Feb, [facility] [address] [id number] [address] [place] [address] Feb, Acute superficial venous thr ombosis of left lower extremity I82.812 [facility] [address] [facility] [id number] [address] [place] [phone] Feb, [facility] [address] [id number] [address] [place] [address] Feb, Other specified soft tissue disorders M79.89 and Pain in left leg M79.605 [facility] [address] [facility] [id number] [address] [place] [phone] 05 Jan, 2018 Obstructive sleep apnea G47. 33 [place] [address] [facility] [id number] [address] [place] [address] Dec, Obstructive sleep apnea G47. 33 and Mood disorder F39 [place] [address] [place] [id number] [address] [place] [phone] Dec, [facility] [address] [facility] [id number] [address] [place] [phone] Dec, [place] [address] [place] [id number] [place] [phone] Nov, Diabetes type 2, controlled E11.9 [place] [address] [address] Nov, Encounter for immunization Z 23 [place] [address] [place] [id number] [address] [place] [address] Nov, Primary insomnia F51.01 [place] [address] [place] [id number] [address] [place] [phone] 07 Oct, 2017 Medicare annual wellness vis it, subsequent Z00.00 and Mood disorder F39 [place] [address] [place] [id number] [address] [place] [address] Sep, Mood disorder F39 [place] [address] [place] [id number] [address] [place] [address] Aug, Primary insomnia F51.01 and Urinary hesitancy R39.11 [place] [address] [place] [id number] [address] [place] [address] Aug, Primary insomnia F51.01 [place] [address] [facility] [id number] [address] [place] [phone] 07 Jul, 2017 Diabetes type 2, controlled E11.9 ; Primary insomnia F51.[address] [facility] [address] [id number] [id number] Jun, Mood disorder F39 [facility] [address] [id number] Monika ALCOCER S [id number] Jun, [facility] [address] [facility] [id number] [address] [place] [id number] May, Nightmares F51.5 [facility] [address] [facility] [id number] [address] [place] [address] May, Cognitive complaints R41.9 ; Unspecified mood [affective] disorder F39 and Primary insomnia F51.01 [facility] [address] [facility] [id number] [address] [place] [address] Apr, Mood disorder F39 and Primar y insomnia F51.01 [facility] [address] [facility] [id number] [address] [place] [address] Apr, Cognitive complaints R41.9 a nd Unspecified mood [affective] disorder F39 [facility] [address] [id number] [address] [place] [id number] Apr, Cognitive complaints R41.9 a nd Unspecified mood [affective] disorder F39 [facility] [address] [facility] [id number] [address] [place] [address] March, [facility] [address] [facility] [id number] [address] [place] [phone] March, Diabetes type 2, controlled E11.9 and Essential hypertension I10 [facility] [address] [id number] [address] [place] [address] March, Primary insomnia F51.01 ; Di abetes type 2, controlled E11.9 and Pain in right shoulder M25.511 [facility] [address] [facility] [id number] [address] [place] [address] March, Cognitive complaints R41.9 a nd Unspecified mood [affective] disorder F39 [facility] [address] [facility] [id number] [address] [place] [address] Feb, Other specified mental disor ders due to known physiological condition F06.8 [facility] [address] [facility] [id number] [address] [place] [phone] Jan, [facility] [address] [facility] [id number] [address] [place] [phone] Jan, [facility] [address] [facility] [id number] [address] [place] [phone] Dec, Diabetes type 2, controlled E11.9 ; Hypertension, benign I10 and Mood disorder F39 [facility] [address] [facility] [id number] [address] [place] [phone] Dec, Medicare annual wellness vis it, initial Z00.00 [place] [address] [facility] [id number] [address] [place] [address] Nov, Medicare welcome exam Z00.00 ; Encounter for immunization Z23 ; Medicare annual wellness visit, initial Z00.00 and Medicare annual wellness visit, subsequent Z00.00 [facility] [address] [facility] [id number] [address] [place] [id number] Oct, [facility] [address] [facility] [id number] [address] [place] [address] Sep, [facility] [address] [facility] [id number] [address] [place] [phone] Aug, Encounter for immunization Z 23 and Callus L84 [facility] [address] [facility] [id number] [address] [place] [address] Aug, [facility] [address] [facility] [id number] [address] [place] [id number] Jul, Diabetes type 2, controlled E11.9 [facility] [address] [facility] [id number] [address] [place] [id number] Jul, Diabetes type 2, controlled E11.9 [facility] [address] [facility] [id number] [address] [place] [address] Jun, [facility] [address] [id number] [address] [place] [phone] Jun, Hypertension, benign I10 ; M ood disorder F39 and Diabetes type 2, controlled E11.9 [facility] [address] [id number] [address] [place] [id number] Jun, Mood disorder F39 [facility] [address] [id number] [address] [place] [phone] May, [facility] [address] [id number] [address] [place] [phone] May, Mood disorder F39 [facility] [address] [id number] [address] [place] [id number] May, Mood disorder F39 [facility] [address] [id number] [address] [place] [phone] Apr, Controlled type 2 diabetes m ellitus without complication, without long-term current use of insulin E11.9 ; Essential hypertension I10 and Pain in right shoulder M25.511 [facility] [address] [id number] [address] [place] [address] Apr, Mood disorder F39 [facility] [address] [id number] [address] [place] [address] Apr, Pre-op evaluation Z01.818 [facility] [address] [id number] [address] [place] [id number] March, Mood disorder F39 [facility] [address] [id number] [address] [place] [phone] Feb, [facility] [address] [id number] [address] [place] [phone] Feb, Shoulder pain, right M25.511 [facility] [address] [id number] [address] [place] [address] Feb, Shoulder pain, right M25.511 [facility] [address] [address] Feb, Shoulder pain, right M25.511 [place] [address] [address] Feb, Shoulder pain, right M25.511 [place] [address] [address] Jan, Shoulder pain, right M25.511 [place] [address] [address] Jan, Shoulder pain, right M25.511 [place] [address] [id number] Jan, [place] [address] [address] Jan, Diabetes type 2, controlled E11.9 [place] [address] [address] Jan, Shoulder pain, right M25.511 ; Diabetes mellitus without mention of complication, type II or unspecified type, not stated as uncontrolled 250.00 and Diabetes type 2, controlled E11.9 [place] [address] [address] Jan, [place] [address] [address] Jan, [place] [address] [address] Dec, [place] [address] [address] Oct, Callus of foot L84 [place] [address] [address] Oct, Anxiety F41.9 ; Callus of fo ot L84 and Dysuria R30.0 [place] [address] [address] Sep, Diabetes mellitus without me ntion of complication, type II or unspecified type, not stated as uncontrolled 250.00 [facility] [address] [id number] [address] [place] [phone] Aug, Diabetes mellitus without me ntion of complication, type II or unspecified type, not stated as uncontrolled 250.00 [facility] [address] [id number] [address] [place] [address] Jul, [facility] [address] [id number] [address] [place] [address] Jul, [facility] [address] [facility] [id number] [address] [place] [address] Jul, Diabetes mellitus without me ntion of complication, type II or unspecified type, not stated as uncontrolled 250.00 ; Essential hypertension, benign 401.1 and Anxiety state, unspecified 300.00 [facility] [address] [facility] [id number] [address] [place] [address] Jul, [facility] [address] [id number] [address] [place] [phone] Jun, [facility] [address] [facility] [id number] [address] [place] [phone] Jun, [facility] [address] [facility] [id number] [address] [place] [phone] May, [facility] [address] [facility] [id number] [address] [place] [phone] May, [facility] [address] [id number] [address] [place] [phone] Apr, [facility] [address] [facility] [id number] [address] [place] [id number] Apr, Mood disorder 296.90 [facility] [address] [facility] [id number] [address] [place] [id number] March, [facility] [address] [id number] [address] [place] [address] [place] [id number] 14 Feb, 2015 [facility] [address] [id number] [address] [place] [address], [place] [address] 13 Feb, 2015 [facility] [address] [id number] [address] [place] [address], [place] [address] 27 Jan, 2015 [facility] [address] [id number] [address] [place] [address], [place] [address] Jan, [facility] [address] [id number] [address] [place] [address], [place] [address] Jan, [facility] [address] [id number] [address] [place] [address], [place] [address] Jan, [facility] [address] [id number] [address] [place] [address], [place] [address] Jan, [facility] [address] [id number] [address] [place] [address], [place] [address] Jan, [facility] [address] [id number] [address] [place] [address], [place] [address] Jan, [facility] [address] [id number] [address] [place] [address], [place] [address] Jan, [facility] [address] [id number] [address] [place] [address], [place] [address] Dec, [facility] [address] [id number] [address] [place] [address], [place] [address] Dec, [facility] [address] [id number] [address] [place] [address], [place] [address] Nov, [facility] [address] [id number] [address] [place] [address], [place] [address] Nov, [facility] [address] [id number] [address] [place] [address], [place] [address] Nov, [facility] [address] [id number] [address] [place] [address], [place] [address] Nov, [facility] [address] [id number] [address] [place] [address], [place] [address] Oct, [facility] [address] [id number] [address] [place] [address], [place] [address] Oct, [facility] [address] [id number] [address] [place] [address], [place] [address] Oct, [facility] [address] [id number] [address] [place] [address], [place] [address] Oct, [facility] [address] [id number] [address] [place] [address], [place] [address] Oct, [facility] [address] [id number] [address] [place] [address], [place] [address] Oct, [facility] [address] [id number] [address] [place] [address], [place] [address] Oct, [facility] [address] [id number] [address] [place] [address], [place] [address] Oct, [facility] [address] [id number] [address] [place] [address], [place] [address] Oct, [facility] [address] [id number] [address] [place] [address], [place] [address] Oct, [facility] [address] [id number] [address] [place] [address], [place] [address] Sep, [facility] [address] [id number] [address] [place] [address], [place] [address] Sep, [facility] [address] [id number] [address] [place] [address], [place] [address] Sep, [facility] [place] [facility] [address] [id number] [address] [place] [address], [place] [address] Sep, [facility] [place] [facility] [address] [id number] [address] [place] [address], [place] [address] 18 Sep, 2014 [facility] [place] [facility] [address] [id number] [address] [place] [address], [place] [address] Sep, [facility] [address] [id number] [address] [place] [address], [place] [address] Aug, [facility] [address] [id number] [address] [place] [address], [place] [address] Aug, [facility] [address] [id number] [address] [place] [address], [place] [address] Jul, [facility] [address] [id number] [address] [place] [address], [place] [address] Jul, [facility] [address] [id number] [address] [place] [address], [place] [address] Jun, [facility] [address] [id number] [address] [place] [address], [place] [id number] Jun, [facility] [address] [id number] [address] [place] [address], [place] [address] May, [facility] [address] [id number] [address] [place] [address], [place] [address] May, [facility] [address] [id number] [address] [place] [address], [place] [address] Apr, [facility] [address] [id number] [address] [place] [address], [place] [address] Apr, [facility] [address] [id number] [address] [place] [address], [place] [address] Apr, [facility] [address] [id number] [address] [place] [address], [place] [address] Apr, [facility] [address] [id number] [address] [place] [address], [place] [address] March, [facility] [address] [id number] [address] [place] [address], [place] [address] March, [facility] [address] [id number] [address] [place] [address], [place] [address] Jan, [facility] [address] [id number] [address] [place] [address], [place] [id number] 13 Jan, 2014 [facility] [address] [id number] [address] [place] [address], [place] [address] Jan, [facility] [address] [id number] [address] [place] [address], [place] [address] Jan, [facility] [address] [id number] [address] [place] [address], [place] [id number] 05 Jan, 2014 [facility] [address] [id number] [address] [place] [address], [place] [id number] Jan, [facility] [address] [id number] [address] [place] [address], [place] [id number] Dec, [facility] [address] [id number] [address] [place] [address], [place] [address] Dec, [facility] [address] [id number] [address] [place] [address], [place] [address] Oct, [facility] [address] [id number] [address] [place] [address], [place] [address] Oct, [facility] [address] [id number] [address] [place] [address], [place] [id number] Oct, [facility] [address] [id number] [address] [place] [address], [place] [address] Oct, [facility] [address] [id number] [address] [place] [address], [place] [address] Jul, [facility] [address] [id number] [address] [place] [address], [place] [address] Jul, [facility] [address] [id number] [address] [place] [address], [place] [address] Jul, [facility] [address] [id number] [address] [place] [address], [place] [address] Jun, [facility] [address] [id number] [address] [place] [address], [place] [address] Jun, [facility] [address] [id number] [address] [place] [address], [place] [address] May, [facility] [address] [id number] [address] [place] [address], [place] [address] May, [facility] [address] [id number] [address] [place] [address], [place] [address] March, [facility] [address] [id number] [address] [place] [address], [place] [address] March, [facility] [address] [id number] [address] [place] [address], [place] [address] Feb, [facility] [address] [id number] [address] [place] [address], [place] [address] Feb, [facility] [address] [id number] [address] [place] [address], [place] [address] Jan, [facility] [address] [id number] [address] [place] [address], [place] [id number] Dec, [facility] [address] [id number] [address] [place] [address], [place] [address] Dec, [facility] [address] [id number] [address] [place] [address], [place] [address] Dec, [facility] [address] [id number] [address] [place] [address], [place] [address] Dec, [facility] [address] [id number] [address] [place] [address], [place] [address] Dec, [facility] [address] [id number] [address] [place] [address], [place] [address] Nov, [facility] [address] [id number] [address] [place] [address], [place] [address] Oct, [facility] [address] [id number] [address] [place] [address], [place] [address] Oct, [facility] [address] [id number] [address] [place] [address], [place] [address] Aug, [facility] [address] [id number] [address] [place] [address], [place] [address] Aug, [facility] [address] [id number] [address] [place] [address], [place] [address] Aug, [facility] [address] [id number] [address] [place] [address], [place] [address] Aug, [facility] [address] [id number] [address] [place] [address], [place] [address] Aug, [facility] [address] [id number] [address] [place] [address], [place] [address] Jul, [facility] [address] [id number] [address] [place] [address], [place] [address] Jul, [facility] [address] [id number] [address] [place] [address], [place] [address] Jun, [facility] [address] [id number] [address] [place] [address], [place] [address] Jun, [facility] [address] [id number] [address] [place] [address], [place] [address] May, [facility] [address] [id number] [address] [place] [address], [place] [address] May, [facility] [address] [id number] [address] [place] [address], [place] [address] May, [facility] [address] [id number] [address] [place] [address], [place] [address] Apr, [facility] [address] [id number] [address] [place] [address], [place] [address] Apr, [facility] [address] [id number] [address] [place] [address], [place] [address] March, [facility] [address] [id number] [address] [place] [address], [place] [address] March, [facility] [address] [facility] [id number] [address] [place] [id number] Feb, [facility] [address] [facility] [id number] [address] [place] [id number] Feb, [facility] [address] [facility] [id number] [address] [place] [id number] Feb, [facility] [address] [facility] [id number] [address] [place] [id number] Feb, IMMUNIZATIONS No Known Immunizations SOCIAL HISTORY Never Assessed REASON FOR VISIT f/sharri sesay ma PLAN OF CARE Activity Details Follow Up 4 Months Reason: VITAL SIGNS Height 71 in 2019-01-11 Weight 266.3 lbs 2019-01-11 Heart Rate 80 bpm 2019-01-11 Respiratory Rate 20 2019-01-11 BMI 37.14 kg/m2 2019-01-11 Blood pressure systolic 134 mmHg 2019-01-11 Blood pressure diastolic 76 mmHg 2019-01-11 MEDICATIONS Medication Instructions Dosage Frequency Start Date End Date Duration S tatus Fish Oil 1000 MG Orally twice a day 1 capsule 12h Active Rabeprazole Sodium 20 mg 1 tablet 24h Active Colace 100 MG Orally Once a day 1 capsule as needed 24h Dec, 30 day(s) Active Loratadine 10 mg Orally Once a day 1 tablet 24h 30 Active Seroquel 100 mg Orally twice a day (morning and afternoon) 1 tablet Active [place] 5-325 MG Orally every 6 hrs 1 tablet as needed 6h 18 Oct, 8 Active Melatonin 10 MG as directed Acti ve Cyclobenzaprine HCl 10 mg Orally 2 times a day 1 tablet 12h 30 Active Seroquel 300 MG Orally Once a day 1 tablet 24h Active Terazosin HCl 2 MG Orally Once a day 1 capsule 24h Jun, 30 day(s) Not-Taking Pristiq 100 MG Orally Once a day 1 tablet 24h Active Metformin HCl 500 mg 1 tablet with a meal 12h 30 Active Aspirin 81 MG Orally Once a day 1 tablet 24h 30 day( s) Active Ginkgo Biloba Complex 120mg Active RESULTS No Results PROCEDURES No Known [...]
--- OUTSIDE RECORDS SUMMARY | 2020-06-17 08:52 | XMS REPORT ---
Author Author Barrie Wisdom Doctor Organization [facility] Address Unknown Phone Unavailable Care Team Providers Care Slots Manager Name Role Phone Migration, Doctor Unavailable Unavailable PROBLEMS Type Condition ICD9-CM Code XNG03-CR Code Onset Dates Condition S tatus SNOMED Code Problem Primary insomnia F51.01 Active 397 2004 Problem Essential hypertension I10 Active 46503942 Problem Urinary hesitancy R39.11 Active 59 45196 Problem Benign prostatic hyperplasia with lower urinary tract symptoms N40.1 Active 024119214 Problem Diabetes type 2, controlled E11.9 Ac tive 13102961 Problem Controlled type 2 diabetes m ellitus without complication, without long- term current use of insulin E11.9 Active 301087751 Problem Obstructive sleep apnea G47.33 Active 67091609 Problem 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.1 Active 374303110 Problem Acute superficial venous thrombosis of left lower extremit y I82.812 Active [id number] Problem Hesitancy of micturition R39.11 Activ e [id number] ALLERGIES No Information ENCOUNTERS Encounter Location Date Diagnosis [facility] [address] [facility] [id number] [address] [place] [address] Apr, [facility] [address] [facility] [id number] [address] [place] [address] March, [facility] [address] [facility] [id number] [address] [place] [address] Feb, [facility] [address] [facility] [id number] [address] [place] [address] Feb, [facility] [address] [facility] [id number] [address] [place] [address] Feb, Moderate episode of recurren t major depressive disorder F33.1 [facility] [address] [facility] [id number] [address] [place] [address] Feb, Diabetes type 2, controlled E11.9 and Essential hypertension I10 [facility] [address] [facility] [id number] [address] [place] [address] Jan, [facility] [address] [facility] [id number] [address] [place] [phone] Jan, Callus of foot L84 [facility] [address] [place] [id number] [address] [place] [address] Jan, Moderate episode of recurren t major depressive disorder F33.1 [facility] [address] [place] [id number] [address] [place] [address] Jan, Moderate episode of recurren t major depressive disorder F33.1 [place] [address] [place] [id number] [address] [place] [address] Dec, Moderate episode of recurren t major depressive disorder F33.1 [facility] [address] [place] [id number] [address] [place] [address] 11 Dec, 2018 Candidiasis of the esophagus B37.81 [facility] [address] [place] [id number] [address] [place] [address] Dec, [facility] [address] [place] [id number] [address] [place] [address] 04 Dec, 2018 Fecal occult blood test posi tive R19.5 and Anemia, unspecified type D64.9 [facility] [address] [place] [id number] [address] [place] [address] Nov, Stool color black K92.1 [facility] [address] [facility] [id number] [address] [place] [address] Nov, Stool color black K92.1 [facility] [address] [facility] [id number] [address] [place] [address] Nov, Stool color black K92.1 [facility] [address] [place] [id number] [address] [place] [address] Nov, [facility] [address] [place] [id number] [address] [place] [address] Nov, Moderate episode of recurren t major depressive disorder F33.1 [facility] [address] [id number] [address] [place] [address] Oct, Moderate episode of recurren t major depressive disorder F33.1 [facility] [address] [id number] [address] [place] [address] 18 Oct, 2018 Callus of foot L84 and Contr olled type 2 diabetes mellitus without complication, without long-term current use of insulin E11.9 [facility] [address] [id number] [address] [place] [address] 10 Oct, 2018 Moderate episode of recurren t major depressive disorder F33.1 [place] [address] [id number] [address] [place] [address] 17 Aug, 2018 Mood disorder F39 [place] [address] [id number] [address] [place] [id number] 05 Aug, 2018 Encounter for immunization Z 23 [facility] [address] [id number] [address] [place] [address] Jul, Moderate episode of recurren t major depressive disorder F33.1 [place] [address] [id number] [address] [place] [address] Jul, Moderate episode of recurren t major depressive disorder F33.1 [facility] [address] [id number] [address] [place] [address] May, [facility] [address] [id number] [address] [place] [address] May, Moderate episode of recurren t major depressive disorder F33.1 [facility] [address] [id number] [address] [place] [address] May, Moderate episode of recurren t major depressive disorder F33.1 [facility] [address] [id number] [address] [place] [address] Apr, Benign prostatic hyperplasia with lower urinary tract symptoms N40.1 and Hesitancy of micturition R39.11 [facility] [address] [facility] [id number] [address] [place] [address] Apr, Moderate episode of recurren t major depressive disorder F33.1 [facility] [address] [id number] [address] [place] [address] Apr, Unspecified mood [affective] disorder F39 and Primary insomnia F51.01 [facility] [address] [facility] [id number] [address] [place] [address] Apr, Primary insomnia F51.01 [place] [address] [facility] [id number] [address] [place] [address] March, Foot callus L84 [place] [address] [facility] [id number] [address] [place] [address] Feb, Medicare annual wellness vis it, initial Z00.00 [facility] [address] [facility] [id number] [address] [place] [address] Feb, Acute superficial venous thr ombosis of left lower extremity I82.812 [facility] [address] [facility] [id number] [address] [place] [address] Feb, [facility] [address] [facility] [id number] [address] [place] [address] Feb, [facility] [address] [facility] [id number] [address] [place] [address] Feb, Acute superficial venous thr ombosis of left lower extremity I82.812 [facility] [address] [id number] [address] [place] [address] Feb, [facility] [address] [facility] [id number] [address] [place] [address] Feb, Other specified soft tissue disorders M79.89 and Pain in left leg M79.605 [facility] [address] [facility] [id number] [address] [place] [address] Jan, Obstructive sleep apnea G47. 33 [facility] [address] [facility] [id number] [address] [place] [address] Dec, Obstructive sleep apnea G47. 33 and Mood disorder F39 [facility] [address] [facility] [id number] [address] [place] [address] Dec, [facility] [address] [facility] [id number] [address] [place] [address] Dec, [facility] [address] [facility] [id number] [address] [place] [address] Nov, Diabetes type 2, controlled E11.9 [place] [address] [facility] [id number] [address] [place] [address] Nov, Encounter for immunization Z 23 [place] [address] [facility] [id number] [address] [place] [address] Nov, Primary insomnia F51.01 [place] [address] [facility] [id number] [address] [place] [address] Oct, Medicare annual wellness vis it, subsequent Z00.00 and Mood disorder F39 [place] [address] [facility] [id number] [address] [place] [address] Sep, Mood disorder F39 [place] [address] [facility] [id number] [address] [place] [address] Aug, Primary insomnia F51.01 and Urinary hesitancy R39.11 [place] [address] [facility] [id number] [address] [place] [address] Aug, Primary insomnia F51.01 [place] [address] [facility] [id number] [address] [place] [address] 07 Jul, 2017 Diabetes type 2, controlled E11.9 ; Primary insomnia F51.01 and Mood disorder F39 [place] [id number] [place] [id number] Jun, Mood disorder F39 [facility] [address] [id number] Monika ALCOCER [id number] Jun, [facility] [address] [facility] [id number] [address] [place] [address] May, Nightmares F51.5 [facility] [address] [facility] [id number] [address] [place] [address] May, Cognitive complaints R41.9 ; Unspecified mood [affective] disorder F39 and Primary insomnia F51.01 [facility] [address] [id number] [address] [place] [address] Apr, Mood disorder F39 and Primar y insomnia F51.01 [facility] [address] [facility] [id number] [address] [place] [address] Apr, Cognitive complaints R41.9 a nd Unspecified mood [affective] disorder F39 [facility] [address] [facility] [id number] [address] [place] [address] Apr, Cognitive complaints R41.9 a nd Unspecified mood [affective] disorder F39 [facility] [address] [facility] [id number] [address] [place] [address] March, [facility] [address] [facility] [id number] [address] [place] [address] March, Diabetes type 2, controlled E11.9 and Essential hypertension I10 [facility] [address] [facility] [id number] [address] [place] [address] March, Primary insomnia F51.01 ; Di abetes type 2, controlled E11.9 and Pain in right shoulder M25.511 [facility] [address] [facility] [id number] [address] [place] [address] March, Cognitive complaints R41.9 a nd Unspecified mood [affective] disorder F39 [facility] [address] [facility] [id number] [address] [place] [address] Feb, Other specified mental disor ders due to known physiological condition F06.8 [place] [address] [id number] [address] [place] [address] Jan, [facility] [address] [facility] [id number] [address] [place] [phone] Jan, [facility] [address] [facility] [id number] [address] [place] [address] Dec, Diabetes type 2, controlled E11.9 ; Hypertension, benign I10 and Mood disorder F39 [facility] [address] [facility] [id number] [address] [place] [address] 08 Dec, 2016 Medicare annual wellness vis it, initial Z00.00 [place] [address] [facility] [id number] [address] [place] [address] 05 Nov, 2016 Medicare welcome exam Z00.00 ; Encounter for immunization Z23 ; Medicare annual wellness visit, initial Z00.00 and Medicare annual wellness visit, subsequent Z00.00 [facility] [address] [facility] [id number] [address] [place] [address] Oct, [facility] [address] [facility] [id number] [address] [place] [address] Sep, [facility] [address] [facility] [id number] [address] [place] [address] Aug, Encounter for immunization Z 23 and Callus L84 [facility] [address] [facility] [id number] [address] [place] [address] Aug, [facility] [address] [facility] [id number] [address] [place] [address] Jul, Diabetes type 2, controlled E11.9 [facility] [address] [facility] [id number] [address] [place] [address] Jul, Diabetes type 2, controlled E11.9 [facility] [address] [facility] [id number] [address] [place] [address] Jun, [facility] [address] [facility] [id number] [address] [place] [address] Jun, Hypertension, benign I10 ; M ood disorder F39 and Diabetes type 2, controlled E11.9 [facility] [address] [id number] [address] [place] [address] Jun, Mood disorder F39 [facility] [address] [id number] [address] [place] [address] May, [facility] [address] [id number] [address] [place] [address] May, Mood disorder F39 [facility] [address] [id number] [address] [place] [address] May, Mood disorder F39 [facility] [address] [facility] [id number] [address] [place] [address] Apr, Controlled type 2 diabetes m ellitus without complication, without long-term current use of insulin E11.9 ; Essential hypertension I10 and Pain in right shoulder M25.511 [facility] [address] [id number] [address] [place] [address] Apr, Mood disorder F39 [facility] [address] [id number] [address] [place] [address] Apr, Pre-op evaluation Z01.818 [facility] [address] [id number] [address] [place] [address] March, Mood disorder F39 [facility] [address] [id number] [address] [place] [address] Feb, [facility] [address] [id number] [address] [place] [address] Feb, Shoulder pain, right M25.511 [facility] [address] [id number] [address] [place] [address] Feb, Shoulder pain, right M25.511 [facility] [address] [id number] [address] [place] [address] Feb, Shoulder pain, right M25.511 [facility] [address] [facility] [id number] [address] [place] [address] Feb, Shoulder pain, right M25.511 [facility] [address] [facility] [id number] [address] [place] [address] 30 Jan, 2016 Shoulder pain, right M25.511 [facility] [address] [place] [id number] [address] [place] [address] Jan, Shoulder pain, right M25.511 [facility] [address] [facility] [id number] [address] [place] [address] 16 Jan, 2016 [place] [address] [place] [id number] [place] [address] Jan, Diabetes type 2, controlled E11.9 [place] [address] [place] [id number] [address] [place] [address] Jan, Shoulder pain, right M25.511 ; Diabetes mellitus without mention of complication, type II or unspecified type, not stated as uncontrolled 250.00 and Diabetes type 2, controlled E11.9 [place] [address] [place] [id number] [address] [place] [address] Jan, [place] [address] [place] [id number] [place] [address] Jan, [facility] [address] [place] [id number] [address] [place] [address] Dec, [place] [address] [place] [id number] [address] [place] [address] Oct, Callus of foot L84 [place] [address] [place] [id number] [place] [address] Oct, Anxiety F41.9 ; Callus of fo ot L84 and Dysuria R30.0 [place] [address] [place] [id number] [address] [place] [address] Sep, Diabetes mellitus without me ntion of complication, type II or unspecified type, not stated as uncontrolled 250.00 [facility] [address] [id number] [address] [place] [address] Aug, Diabetes mellitus without me ntion of complication, type II or unspecified type, not stated as uncontrolled 250.00 [facility] [address] [id number] [address] [place] [address] Jul, [facility] [address] [id number] [address] [place] [address] Jul, [facility] [address] [id number] [address] [place] [address] Jul, Diabetes mellitus without me ntion of complication, type II or unspecified type, not stated as uncontrolled 250.00 ; Essential hypertension, benign 401.1 and Anxiety state, unspecified 300.00 [facility] [address] [id number] [address] [place] [address] Jul, [facility] [address] [id number] [address] [place] [address] Jun, [facility] [address] [id number] [address] [place] [address] Jun, [facility] [address] [id number] [address] [place] [address] May, [facility] [address] [id number] [address] [place] [address] May, [facility] [address] [id number] [address] [place] [address] Apr, [facility] [address] [id number] [address] [place] [address] Apr, Mood disorder 296.90 [facility] [address] [id number] [address] [place] [address] March, [facility] [address] [id number] [address] [place] [address] Feb, [facility] [address] [id number] [address] [place] [address], [place] [address] 13 Feb, 2015 [facility] [address] [id number] [address] [place] [address], [place] [address] Jan, [facility] [address] [id number] [address] [place] [address], [place] [address] Jan, [facility] [address] [id number] [address] [place] [address], [place] [address] Jan, [facility] [address] [id number] [address] [place] [address], [place] [address] Jan, [facility] [address] [id number] [address] [place] [address], [place] [address] Jan, [facility] [address] [id number] [address] [place] [address], [place] [address] Jan, [facility] [address] [id number] [address] [place] [address], [place] [address] Jan, [facility] [address] [id number] [address] [place] [address], [place] [address] Jan, [facility] [address] [id number] [address] [place] [address], [place] [address] Dec, [facility] [address] [id number] [address] [place] [address], [place] [address] Dec, [facility] [address] [id number] [address] [place] [address], [place] [address] Nov, [facility] [address] [id number] [address] [place] [address], [place] [address] Nov, [facility] [address] [id number] [address] [place] [address], [place] [address] Nov, [facility] [address] [id number] [address] [place] [address], [place] [address] Nov, [facility] [address] [id number] [address] [place] [address], [place] [address] Oct, [facility] [address] [id number] [address] [place] [address], [place] [address] Oct, [facility] [address] [id number] [address] [place] [address], [place] [address] Oct, [facility] [address] [id number] [address] [place] [address], [place] [address] Oct, [facility] [address] [id number] [address] [place] [address], [place] [address] Oct, [facility] [address] [id number] [address] [place] [address], [place] [address] Oct, [facility] [address] [id number] [address] [place] [address], [place] [address] Oct, [facility] [address] [id number] [address] [place] [address], [place] [address] Oct, [facility] [address] [id number] [address] [place] [address], [place] [address] Oct, [facility] [address] [id number] [address] [place] [address], [place] [address] Oct, [facility] [address] [id number] [address] [place] [address], [place] [address] Sep, [facility] [address] [id number] [address] [place] [address], [place] [address] Sep, [facility] [address] [id number] [address] [place] [address], [place] [address] 18 Sep, 2014 [facility] [address] [id number] [address] [place] [address], [place] [address] Sep, [facility] [address] [id number] [address] [place] [address], [place] [address] Sep, [facility] [address] [id number] [address] [place] [address], [place] [address] 18 Sep, 2014 [facility] [address] [id number] [address] [place] [address], [place] [address] Aug, [facility] [address] [id number] [address] [place] [address], [place] [address] Aug, [facility] [address] [id number] [address] [place] [address], [place] [address] Jul, [facility] [address] [id number] [address] [place] [address], [place] [address] Jul, [facility] [address] [id number] [address] [place] [address], [place] [address] Jun, [facility] [address] [id number] [address] [place] [address], [place] [address] Jun, [facility] [address] [id number] [address] [place] [address], [place] [address] May, [facility] [address] [id number] [address] [place] [address], [place] [address] May, [facility] [address] [id number] [address] [place] [address], [place] [address] Apr, [facility] [address] [id number] [address] [place] [address], [place] [address] Apr, [facility] [address] [id number] [address] [place] [address], [place] [address] Apr, [facility] [address] [id number] [address] [place] [address], [place] [address] Apr, [facility] [address] [id number] [address] [place] [address], [place] [address] March, [facility] [facility] [address] [id number] [address] [place] [address], [place] [address] March, [facility] [address] [id number] [address] [place] [address], [place] [address] Jan, [facility] [address] [id number] [address] [place] [address], [place] [address] Jan, [facility] [address] [id number] [address] [place] [address], [place] [address] Jan, [facility] [address] [id number] [address] [place] [address], [place] [address] Jan, [facility] [address] [id number] [address] [place] [address], [place] [address] Jan, [facility] [address] [id number] [address] [place] [address], [place] [address] Jan, [facility] [address] [id number] [address] [place] [address], [place] [address] Dec, [facility] [address] [id number] [address] [place] [address], [place] [address] Dec, [facility] [address] [id number] [address] [place] [address], [place] [address] Oct, [facility] [address] [id number] [address] [place] [address], [place] [address] Oct, [facility] [address] [id number] [address] [place] [address], [place] [address] Oct, [facility] [address] [id number] [address] [place] [address], [place] [address] Oct, [facility] [address] [id number] [address] [place] [address], [place] [address] Jul, [facility] [address] [id number] [address] [place] [address], [place] [address] Jul, [facility] [address] [id number] [address] [place] [address], [place] [address] Jul, [facility] [address] [id number] [address] [place] [address], [place] [address] Jun, [facility] [address] [id number] [address] [place] [address], [place] [address] Jun, [facility] [address] [id number] [address] [place] [address], [place] [address] May, [facility] [address] [id number] [address] [place] [address], [place] [address] May, [facility] [address] [id number] [address] [place] [address], [place] [address] March, [facility] [address] [id number] [address] [place] [address], [place] [address] March, [facility] [address] [id number] [address] [place] [address], [place] [address] Feb, [facility] [address] [id number] [address] [place] [address], [place] [address] Feb, [facility] [address] [id number] [address] [place] [address], [place] [address] Jan, [facility] [address] [id number] [address] [place] [address], [place] [address] Dec, [facility] [address] [id number] [address] [place] [address], [place] [address] Dec, [facility] [address] [id number] [address] [place] [address], [place] [address] Dec, [facility] [address] [id number] [address] [place] [address], [place] [address] Dec, [facility] [address] [id number] [address] [place] [address], [place] [address] Dec, [facility] [address] [id number] [address] [place] [address], [place] [address] Nov, [facility] [address] [id number] [address] [place] [address], [place] [address] Oct, [facility] [address] [id number] [address] [place] [address], [place] [address] Oct, [facility] [address] [id number] [address] [place] [address], [place] [address] Aug, [facility] [address] [id number] [address] [place] [address], [place] [address] Aug, [facility] [address] [id number] [address] [place] [address], [place] [address] Aug, [facility] [address] [id number] [address] [place] [address], [place] [address] Aug, [facility] [address] [id number] [address] [place] [address], [place] [address] Aug, [facility] [address] [id number] [address] [place] [address], [place] [address] Jul, [facility] [address] [id number] [address] [place] [address], [place] [address] Jul, [facility] [address] [id number] [address] [place] [address], [place] [address] Jun, [facility] [address] [id number] [address] [place] [address], [place] [address] Jun, [facility] [address] [id number] [address] [place] [address], [place] [address] May, [facility] [address] [id number] [address] [place] [address], [place] [address] May, [facility] [address] [id number] [address] [place] [address], [place] [address] May, [facility] [address] [id number] [address] [place] [address], [place] [address] Apr, [facility] [address] [id number] [address] [place] [address], [place] [address] Apr, [facility] [address] [id number] [address] [place] [address], [place] [address] March, [facility] [address] [id number] [address] [place] [address], [place] [address] March, [facility] [address] [id number] [address] [place] [address], [place] [address] Feb, [facility] [address] [facility] [id number] [address] [place] [address] Feb, [facility] [address] [facility] [id number] [address] [place] [address] Feb, [facility] [address] [facility] [id number] [address] [place] [address] Feb, IMMUNIZATIONS No Known Immunizations SOCIAL HISTORY Never Assessed REASON FOR VISIT EMR-[facility] PLAN OF CARE VITAL SIGNS MEDICATIONS Unknown [...]
--- OUTSIDE RECORDS SUMMARY | 2020-06-17 08:57 | XMS REPORT | Continuity of Care Document ---
Demographics Preferred Language Unknown Marital Status Unknown Sabianist Affiliation Unknown Race Unknown Ethnic Group Unknown Author Organization Unknown Address Unknown Phone Unavailable Allergies Active Description Code Type Severity Reaction Onset Reported/Identified Relationship to Patient Clinical Status Yes No Known Drug Allergies [id number] Drug Allergy Unknown N/A 01/04/2020 Medications There is no data. Problems Date Dx Coded Attending Type Code Diagnosis Diagnosed By 10/08/1542 SHARLA QUEVEDO, CHUCK Bustillos Ot M25.511 PAIN IN RIGHT SHOULDER 02/23/2012 401.1 HYPE RTENSION, BENIGN ESSENTIAL 02/23/2012 AYANA QUEVEDO, GHASSAN Clay 40 1.1 HYPERTENSION, BENIGN ESSENTIAL 02/23/2012 401.1 HYPE RTENSION, BENIGN ESSENTIAL 02/23/2012 401.1 HYPE RTENSION, BENIGN ESSENTIAL 02/23/2012 401.1 HYPE RTENSION, BENIGN ESSENTIAL 02/23/2012 401.1 HYPE RTENSION, BENIGN ESSENTIAL 02/23/2012 401.1 HYPE RTENSION, BENIGN ESSENTIAL 02/23/2012 401.1 HYPE RTENSION, BENIGN ESSENTIAL 02/23/2012 401.1 HYPE RTENSION, BENIGN ESSENTIAL 02/23/2012 IRIS PHD, JOYCE Zuñiga 401.1 HYPERTENSION, BENIGN ESSENTIAL 02/23/2012 GERMAN BUSTILLO APRN 40 1.1 HYPERTENSION, BENIGN ESSENTIAL 02/23/2012 LEGER DO MARIA G K 401.1 HYPERTENSION, BENIGN ESSENTIAL 02/23/2012 GERMAN BUSTILLO APRN 40 1.1 HYPERTENSION, BENIGN ESSENTIAL 02/23/2012 GERMAN BUSTILLO APRN 40 1.1 HYPERTENSION, BENIGN ESSENTIAL 02/23/2012 LEGER DO MARIA G K 401.1 HYPERTENSION, BENIGN ESSENTIAL 02/23/2012 GERMAN BUSTILLO APRN 40 1.1 HYPERTENSION, BENIGN ESSENTIAL 02/23/2012 GERMAN BUSTILLO APRN 40 1.1 HYPERTENSION, BENIGN ESSENTIAL 02/23/2012 GERMAN BUSTILLO APRN 40 1.1 HYPERTENSION, BENIGN ESSENTIAL 02/23/2012 GERMAN BUSTILLO APRN 40 1.1 HYPERTENSION, BENIGN ESSENTIAL 02/23/2012 GERMAN BUSTILLO APRN 40 1.1 HYPERTENSION, BENIGN ESSENTIAL 02/23/2012 GERMAN BUSTILLO APRN 40 1.1 HYPERTENSION, BENIGN ESSENTIAL 02/23/2012 401.1 HYPE RTENSION, BENIGN ESSENTIAL 03/24/2012 250.00 SHI BETES II CONTROLLED (UNCOMPLICATED) 03/24/2012 296.90 MOO D DISORDER 03/24/2012 AYANA QUEVEDO, GHASSAN Clay 250.00 DIABETES II CONTROLLED (UNCOMPLICATED) 03/24/2012 AYANA QUEVEDO, GHASSAN Clay 296.90 MOOD DISORDER 03/24/2012 250.00 SHI BETES II CONTROLLED (UNCOMPLICATED) 03/24/2012 296.90 MOO D DISORDER 03/24/2012 250.00 SHI BETES II CONTROLLED (UNCOMPLICATED) 03/24/2012 296.90 MOO D DISORDER 03/24/2012 250.00 SHI BETES II CONTROLLED (UNCOMPLICATED) 03/24/2012 296.90 MOO D DISORDER 03/24/2012 250.00 SHI BETES II CONTROLLED (UNCOMPLICATED) 03/24/2012 296.90 MOO D DISORDER 03/24/2012 250.00 SHI BETES II CONTROLLED (UNCOMPLICATED) 03/24/2012 296.90 MOO D DISORDER 03/24/2012 250.00 SHI BETES II CONTROLLED (UNCOMPLICATED) 03/24/2012 296.90 MOO D DISORDER 03/24/2012 250.00 SHI BETES II CONTROLLED (UNCOMPLICATED) 03/24/2012 296.90 MOO D DISORDER 03/24/2012 IRIS PEGUERO, JOYCE Zuñiga 250.00 DIABETES II CONTROLLED (UNCOMPLICATED) 03/24/2012 IRIS PEGUERO, JOYCE Zuñiga 296.90 MOOD DISORDER 03/24/2012 GERMAN BUSTILLO APRN 250.00 DIABETES II CONTROLLED (UNCOMPLICATED) 03/24/2012 GERMAN BUSTILLO APRN 296.90 MOOD DISORDER 03/24/2012 MARIA G LEGER DO 250.00 DIABETES II CONTROLLED (UNCOMPLICATED) 03/24/2012 MARIA G LEGER DO K 296.90 MOOD DISORDER 03/24/2012 GERMAN BUSTILLO APRN 250.00 DIABETES II CONTROLLED (UNCOMPLICATED) 03/24/2012 GERMAN BUSTILLO APRN 296.90 MOOD DISORDER 03/24/2012 GERMAN BUSTILLO APRN 250.00 DIABETES II CONTROLLED (UNCOMPLICATED) 03/24/2012 GERMAN BUSTILLO APRN 296.90 MOOD DISORDER 03/24/2012 MARIA G LEGER DO K 250.00 DIABETES II CONTROLLED (UNCOMPLICATED) 03/24/2012 JUDAH LEGER DOA K 296.90 MOOD DISORDER 03/24/2012 GERMAN BUSTILLO APRN T 250.00 DIABETES II CONTROLLED (UNCOMPLICATED) 03/24/2012 GERMAN BUSTILLO APRN T 296.90 MOOD DISORDER 03/24/2012 GERMAN BUSTILLO APRN T 250.00 DIABETES II CONTROLLED (UNCOMPLICATED) 03/24/2012 GERMAN BUSTILLO APRN T 296.90 MOOD DISORDER 03/24/2012 GERMAN BUSTILLO APRN T 250.00 DIABETES II CONTROLLED (UNCOMPLICATED) 03/24/2012 GERMAN BUSTILLO APRN T 296.90 MOOD DISORDER 03/24/2012 GERMAN BUSTILLO APRN T 250.00 DIABETES II CONTROLLED (UNCOMPLICATED) 03/24/2012 GERMAN BUSTILLO APRN T 296.90 MOOD DISORDER 03/24/2012 GERMAN BUSTILLO APRN T 250.00 DIABETES II CONTROLLED (UNCOMPLICATED) 03/24/2012 GERMAN BUSTILLO APRN T 296.90 MOOD DISORDER 03/24/2012 GERMAN BUSTILLO APRN T 250.00 DIABETES II CONTROLLED (UNCOMPLICATED) 03/24/2012 GERMAN BUSTILLO APRN T 296.90 MOOD DISORDER 03/24/2012 250.00 SHI BETES II CONTROLLED (UNCOMPLICATED) 03/24/2012 296.90 MOO D DISORDER 03/31/2012 V76.51 COL ON CANCER SCREENING 03/31/2012 AYANA QUEVEDO, GHASSAN Clay V76.51 COLON CANCER SCREENING 03/31/2012 V76.51 COL ON CANCER SCREENING 03/31/2012 V76.51 COL ON CANCER SCREENING 03/31/2012 V76.51 COL ON CANCER SCREENING 03/31/2012 V76.51 COL ON CANCER SCREENING 03/31/2012 V76.51 COL ON CANCER SCREENING 03/31/2012 V76.51 COL ON CANCER SCREENING 03/31/2012 V76.51 COL ON CANCER SCREENING 03/31/2012 IRIS PHD, JOYCE Zuñiga V76.51 COLON CANCER SCREENING 03/31/2012 GERMAN BUSTILLO APRN V76.51 COLON CANCER SCREENING 03/31/2012 MARIA G LEGER DO V76.51 COLON CANCER SCREENING 03/31/2012 GERMAN BUSTILLO APRN V76.51 COLON CANCER SCREENING 03/31/2012 GERMAN BUSTILLO APRN V76.51 COLON CANCER SCREENING 03/31/2012 MARIA G LEGER DO V76.51 COLON CANCER SCREENING 03/31/2012 GERMAN BUSTILLO APRN V76.51 COLON CANCER SCREENING 03/31/2012 GERMAN BUSTILLO APRN V76.51 COLON CANCER SCREENING 03/31/2012 GERMAN BUSTILLO APRN V76.51 COLON CANCER SCREENING 03/31/2012 GERMAN BUSTILLO APRN V76.51 COLON CANCER SCREENING 03/31/2012 GERMAN BUSTILLO APRN V76.51 COLON CANCER SCREENING 03/31/2012 GERMAN BUSTILLO APRN V76.51 COLON CANCER SCREENING 03/31/2012 V76.51 COL ON CANCER SCREENING 05/31/2012 V12.72 PER JESSY HISTORY OF COLONIC POLYPS 05/31/2012 AYANA QUEVEDO, GHASSAN Clay V12.72 PERSONAL HISTORY OF COLONIC POLYPS 05/31/2012 V12.72 PER JESSY HISTORY OF COLONIC POLYPS 05/31/2012 V12.72 PER JESSY HISTORY OF COLONIC POLYPS 05/31/2012 V12.72 PER JESSY HISTORY OF COLONIC POLYPS 05/31/2012 V12.72 PER JESSY HISTORY OF COLONIC POLYPS 05/31/2012 V12.72 PER JESSY HISTORY OF COLONIC POLYPS 05/31/2012 V12.72 PER JESSY HISTORY OF COLONIC POLYPS 05/31/2012 V12.72 PER JESSY HISTORY OF COLONIC POLYPS 05/31/2012 IRIS PHD, JOYCE Zuñiga V12.72 PERSONAL HISTORY OF COLONIC POLYPS 05/31/2012 GERMAN BUSTILLO APRN V12.72 PERSONAL HISTORY OF COLONIC POLYPS 05/31/2012 MARIA G LEGER DO V12.72 PERSONAL HISTORY OF COLONIC POLYPS 05/31/2012 GERMAN BUSTILLO APRN V12.72 PERSONAL HISTORY OF COLONIC POLYPS 05/31/2012 GERMAN BUSTILLO APRN V12.72 PERSONAL HISTORY OF COLONIC POLYPS 05/31/2012 MARIA G LEGER DO V12.72 PERSONAL HISTORY OF COLONIC POLYPS 05/31/2012 GERMAN BUSTILLO APRN V12.72 PERSONAL HISTORY OF COLONIC POLYPS 05/31/2012 GERMAN BUSTILLO APRN V12.72 PERSONAL HISTORY OF COLONIC POLYPS 05/31/2012 GERMAN BUSTILLO APRN V12.72 PERSONAL HISTORY OF COLONIC POLYPS 05/31/2012 GERMAN BUSTILLO APRN V12.72 PERSONAL HISTORY OF COLONIC POLYPS 05/31/2012 GERMAN BUSTILLO APRN V12.72 PERSONAL HISTORY OF COLONIC POLYPS 05/31/2012 GERMAN BUSTILLO APRN V12.72 PERSONAL HISTORY OF COLONIC POLYPS 05/31/2012 V12.72 PER JESSY HISTORY OF COLONIC POLYPS 07/09/2012 535.50 GAS TRITIS UNSPEC 07/09/2012 AYANA QUEVEDO, GHASSAN Clay 535.50 GASTRITIS UNSPEC 07/09/2012 535.50 GAS TRITIS UNSPEC 07/09/2012 535.50 GAS TRITIS UNSPEC 07/09/2012 535.50 GAS TRITIS UNSPEC 07/09/2012 535.50 GAS TRITIS UNSPEC 07/09/2012 535.50 GAS TRITIS UNSPEC 07/09/2012 535.50 GAS TRITIS UNSPEC 07/09/2012 535.50 GAS TRITIS UNSPEC 07/09/2012 IRIS PHD, JOYCE Zuñiga 535.50 GASTRITIS UNSPEC 07/09/2012 GERMAN BUSTILLO APRN 535.50 GASTRITIS UNSPEC 07/09/2012 MARIA G LEGER DO 535.50 GASTRITIS UNSPEC 07/09/2012 GERMAN BUSTILLO APRN 535.50 GASTRITIS UNSPEC 07/09/2012 GERMAN BUSTILLO APRN 535.50 GASTRITIS UNSPEC 07/09/2012 MARIA G LEGER DO 535.50 GASTRITIS UNSPEC 07/09/2012 GERMAN BUSTILLO APRN 535.50 GASTRITIS UNSPEC 07/09/2012 GERMAN BUSTILLO APRN 535.50 GASTRITIS UNSPEC 07/09/2012 GERMAN BUSTILLO APRN 535.50 GASTRITIS UNSPEC 07/09/2012 GERMAN BUSTILLO APRN 535.50 GASTRITIS UNSPEC 07/09/2012 GERMAN BUSTILLO APRN 535.50 GASTRITIS UNSPEC 07/09/2012 GERMAN BUSTILLO APRN 535.50 GASTRITIS UNSPEC 07/09/2012 535.50 GAS TRITIS UNSPEC 08/17/2012 700 CALLUS /CORN 08/17/2012 AYANA QUEVEDO, GHASSAN Clay 70 0 CALLUS/CORN 08/17/2012 700 CALLUS /CORN 08/17/2012 700 CALLUS /CORN 08/17/2012 700 CALLUS /CORN 08/17/2012 700 CALLUS /CORN 08/17/2012 700 CALLUS /CORN 08/17/2012 700 CALLUS /CORN 08/17/2012 700 CALLUS /CORN 08/17/2012 IRIS PEGUERO, JOYCE Zuñiga 7 00 CALLUS/CORN 08/17/2012 GERMAN BUSTILLO APRN 70 0 CALLUS/CORN 08/17/2012 MARIA G LEGER DO 700 CALLUS/CORN 08/17/2012 GERMAN BUSTILLO APRN 70 0 CALLUS/CORN 08/17/2012 GERMAN BUSTILLO APRN 70 0 CALLUS/CORN 08/17/2012 LEGER DO, MARIA G K 700 CALLUS/CORN 08/17/2012 GERMAN BUSTILLO APRN 70 0 CALLUS/CORN 08/17/2012 GERMAN BUSTILLO APRN 70 0 CALLUS/CORN 08/17/2012 GERMAN BUSTILLO APRN 70 0 CALLUS/CORN 08/17/2012 GERMAN BUSTILLO APRN 70 0 CALLUS/CORN 08/17/2012 GERMAN BUSTILLO APRN 70 0 CALLUS/CORN 08/17/2012 GERMAN BUSTILLO APRN 70 0 CALLUS/CORN 08/17/2012 700 CALLUS /CORN 01/31/2013 Ot 562.10 DIV ERTICULOSIS COLON (W/O MENT OF HEMORR 01/31/2013 Ot V76.51 SCR EEN MAL NEOP- COLON 02/17/2013 300.00 AN ANXIETY UNSPEC 02/17/2013 311 DEPRES SIVE DISORDER NOS 02/17/2013 300.00 AN ANXIETY UNSPEC 02/17/2013 311 DEPRES SIVE DISORDER NOS 02/17/2013 300.00 AN ANXIETY UNSPEC 02/17/2013 311 DEPRES SIVE DISORDER NOS 02/17/2013 300.00 AN ANXIETY UNSPEC 02/17/2013 311 DEPRES SIVE DISORDER NOS 02/17/2013 300.00 AN ANXIETY UNSPEC 02/17/2013 311 DEPRES SIVE DISORDER NOS 02/17/2013 IRIS PHD, JOYCE Zuñiga 300.00 AN ANXIETY UNSPEC 02/17/2013 IRIS PHD, JOYCE Zuñiga 3 11 DEPRESSIVE DISORDER NOS 02/17/2013 GERMAN BUSTILLO APRN 300.00 AN ANXIETY UNSPEC 02/17/2013 GERMAN BUSTILLO APRN 31 1 DEPRESSIVE DISORDER NOS 02/17/2013 MARIA G LEGER DO K 300.00 AN ANXIETY UNSPEC 02/17/2013 JUDAH LEGER DOA K 311 DEPRESSIVE DISORDER NOS 02/17/2013 GERMAN BUSTILLO APRN 300.00 AN ANXIETY UNSPEC 02/17/2013 GERMAN BUSTILLO APRN 31 1 DEPRESSIVE DISORDER NOS 02/17/2013 GERMAN BUSTILLO APRN 300.00 AN ANXIETY UNSPEC 02/17/2013 GERMAN BUSTILLO APRN 31 1 DEPRESSIVE DISORDER NOS 02/17/2013 JUDAH LEGER DOA K 300.00 AN ANXIETY UNSPEC 02/17/2013 ARSEN MLEÉNDEZ MARIA G K 311 DEPRESSIVE DISORDER NOS 02/17/2013 GERMAN BUSTILLO APRN 300.00 AN ANXIETY UNSPEC 02/17/2013 [facility] QUALITY LAB TECHNICIAN, GERMAN T 31 1 DEPRESSIVE DISORDER NOS 02/17/2013 GERMAN BUSTILLO APRN T 300.00 AN ANXIETY UNSPEC 02/17/2013 GERMAN BUSTILLO APRN 31 1 DEPRESSIVE DISORDER NOS 02/17/2013 GERMAN BUSTILLO APRN T 300.00 AN ANXIETY UNSPEC 02/17/2013 GERMAN BUSTILLO APRN T 31 1 DEPRESSIVE DISORDER NOS 02/17/2013 IWONA PATEL, GERMAN T 300.00 AN ANXIETY UNSPEC 02/17/2013 GERMAN BUSTILLO APRN 31 1 DEPRESSIVE DISORDER NOS 02/17/2013 GERMAN BUSTILLO APRN T 300.00 AN ANXIETY UNSPEC 02/17/2013 GERMAN BUSTILLO APRN T 31 1 DEPRESSIVE DISORDER NOS 02/17/2013 GERMAN BUSTILLO APRN T 300.00 AN ANXIETY UNSPEC 02/17/2013 GERMAN BUSTILLO APRN 31 1 DEPRESSIVE DISORDER NOS 12/13/2013 LEGER DO, MARIA G K V04.81 FLU SHOT 12/13/2013 GERMAN BUSTILLO APRN V04.81 FLU SHOT 12/13/2013 GERMAN BUSTILLO APRN V04.81 FLU SHOT 12/13/2013 LEGER DO, MARIA G K V04.81 FLU SHOT 12/13/2013 GERMAN BUSTILLO APRN T V04.81 FLU SHOT 12/13/2013 GERMAN BUSTILLO APRN T V04.81 FLU SHOT 12/13/2013 GERMAN BUSTILLO APRN T V04.81 FLU SHOT 12/13/2013 GERMAN BUSTILLO APRN T V04.81 FLU SHOT 12/13/2013 GERMAN BUSTILLO APRN T V04.81 FLU SHOT 12/13/2013 GERMAN BUSTILLO APRN T V04.81 FLU SHOT 04/05/2014 LEGER DO, MARIA G K 477.9 RHINITIS 04/05/2014 LEGER DO, MARIA G K 786.2 COUGH 04/05/2014 GERMAN BUSTILLO APRN 47 7.9 RHINITIS 04/05/2014 GERMAN BUSTILLO APRN 78 6.2 COUGH 04/05/2014 GERMAN BUSTILLO APRN 47 7.9 RHINITIS 04/05/2014 GERMAN BUSTILLO APRN T 78 6.2 COUGH 04/05/2014 GERMAN BUSTILLO APRN T 47 7.9 RHINITIS 04/05/2014 GERMAN BUSTILLO APRN 78 6.2 COUGH 04/05/2014 GERMAN BUSTILLO APRN 47 7.9 RHINITIS 04/05/2014 GERMAN BUSTILLO APRN 78 6.2 COUGH 04/05/2014 GERMAN BUSTILLO APRN T 47 7.9 RHINITIS 04/05/2014 GERMAN BUSTILLO APRN T 78 6.2 COUGH 04/05/2014 GERMAN BUSTILLO APRN T 47 7.9 RHINITIS 04/05/2014 GERMAN BUSTILLO APRN T 78 6.2 COUGH 10/25/2014 GERMAN BUSTILLO APRN T 72 4.2 BACK PAIN, LOWER 10/25/2014 GERMAN BUSTILLO APRN T 72 4.2 BACK PAIN, LOWER 10/25/2014 IWONA VELASCON GERMAN T 72 4.2 BACK PAIN, LOWER 10/25/2014 [facility] QUALITY LAB TECHNICIAN GERMAN T 72 4.2 BACK PAIN, LOWER 02/02/2015 GERMAN BUSTILLO APRN T 600.00 HYPERTROPHY (BENIGN) OF PROSTATE WITHOUT URINARY OBSTRUCTION AND OTHER LOWER URINARY TRACT SYMPTOMS (LUTS) 02/02/2015 GERMAN BUSTILLO APRN T 780.57 SLEEP APNEA 02/02/2015 GERMAN BUSTILLO APRN T 600.00 HYPERTROPHY (BENIGN) OF PROSTATE WITHOUT URINARY OBSTRUCTION AND OTHER LOWER URINARY TRACT SYMPTOMS (LUTS) 02/02/2015 GERMAN BUSTILLO APRN T 780.57 SLEEP APNEA 02/27/2015 Ot V72.84 02/28/2015 GERMAN BUSTILLOP Ot 327.23 OBSTRUCTIVE SLEEP APNEA (ADULT) (PEDIATR 02/28/2015 GERMNA BUSTILLOP Ot 401.9 HYPERTENSION NOS 04/07/2015 GERMAN BUSTILLO PROFESSOR OF MUSICOLOGY Ot 327.23 OBSTRUCTIVE SLEEP APNEA (ADULT) (PEDIATR 02/21/2016 Ot V72.84 02/21/2016 GERMAN BUSTILLO PROFESSOR OF MUSICOLOGY Ot M25.511 02/22/2016 GERMAN BUSTILLOP Ot M25.511 PAIN IN RIGHT SHOULDER 02/25/2016 GERMAN BUSTILLOP Ot M25.511 PAIN IN RIGHT SHOULDER 02/25/2016 GERMAN BUSTILLOP Ot M25.511 PAIN IN RIGHT SHOULDER 03/05/2016 Ot V72.84 EXA M PRE- OPERATIVE NOS 03/05/2016 GERMAN BUSTILLOP Ot M25.511 PAIN IN RIGHT SHOULDER 03/05/2016 SHARLA QUEVEDO, CHUCK Bustillos Ot M75.121 COMPLETE ROTATR-CUFF TEAR/RUPTR OF R DELMER 03/05/2016 GERMAN BUSTILLOP Ot M25.511 PAIN IN RIGHT SHOULDER 03/12/2016 GERMAN BUSTILLOP Ot M25.511 PAIN IN RIGHT SHOULDER 03/14/2016 CHUCK MAGDALENO MD Ot M75.121 COMPLETE ROTATR-CUFF TEAR/RUPTR OF R DELMER 03/31/2016 CHUCK MAGDALENO MD Ot M75.121 COMPLETE ROTATR-CUFF TEAR/RUPTR OF R DELMER 04/02/2016 CHUCK MAGDALENO MD Ot M75.121 COMPLETE ROTATR-CUFF TEAR/RUPTR OF R DELMER 04/16/2016 CHUCK MAGDALENO MD Ot M75.101 UNSP ROTATR-CUFF TEAR/RUPTR OF RIGHT DELMER 04/16/2016 CHUCK MAGDALENO MD Ot Z01.818 ENCOUNTER FOR OTHER PREPROCEDURAL EXAMIN 04/16/2016 CHUCK MAGDALENO MD, Ot Z11.2 ENCOUNTER FOR SCREENING FOR OTHER BACTER 04/23/2016 CHUKC MAGDALENO MD Ot E11.9 TYPE 2 DIABETES MELLITUS WITHOUT COMPLIC 04/23/2016 CHUCK MAGDALENO MD Ot F32.9 MAJOR DEPRESSIVE DISORDER, SINGLE EPISOD 04/23/2016 CHUCK MAGDALENO MD Ot M75.101 UNSP ROTATR-CUFF TEAR/RUPTR OF RIGHT DELMER 04/23/2016 CHUCK MAGDALENO MD Ot 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, RIGHT SHOULDER 04/23/2016 CHUCK MAGDALENO MD Ot S43.431A SUPERIOR GLENOID LABRUM LESION OF RIGHT 04/24/2016 CHUCK MAGDALENO MD, Ot E11.9 TYPE 2 DIABETES MELLITUS WITHOUT COMPLIC 04/24/2016 CHUCK MAGDALENO MD, Ot F32.9 MAJOR DEPRESSIVE DISORDER, SINGLE EPISOD 04/24/2016 CHUCK MAGDALENO MD Ot M75.101 UNSP ROTATR-CUFF TEAR/RUPTR OF RIGHT DELMER 04/24/2016 CHUCK MAGDALENO MD Ot 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511 PAIN IN RIGHT SHOULDER 12/30/2017 GERMAN BUSTILLO PROFESSOR OF MUSICOLOGY Ot G47.33 OBSTRUCTIVE SLEEP APNEA (ADULT) (PEDIATR 12/31/2017 GERMAN BUSTILLO PROFESSOR OF MUSICOLOGY Ot G47.33 OBSTRUCTIVE SLEEP APNEA (ADULT) (PEDIATR 12/31/2017 Ot V72.84 EXA M PRE- OPERATIVE NOS 12/31/2017 GERMAN BUSTILLO PROFESSOR OF MUSICOLOGY Ot M25.511 PAIN IN RIGHT SHOULDER 12/31/2017 GERMAN BUSTILLO PROFESSOR OF MUSICOLOGY Ot G47.33 OBSTRUCTIVE SLEEP APNEA (ADULT) (PEDIATR 01/02/2018 Ot V72.84 EXA M PRE- OPERATIVE NOS 01/02/2018 GERMAN BUSTILLO PROFESSOR OF MUSICOLOGY Ot M25.511 PAIN IN RIGHT SHOULDER 01/02/2018 GERMAN BUSTILLO PROFESSOR OF MUSICOLOGY Ot G47.33 OBSTRUCTIVE SLEEP APNEA (ADULT) (PEDIATR 01/03/2018 GERMAN BUSTILLO PROFESSOR OF MUSICOLOGY Ot G47.10 HYPERSOMNIA, UNSPECIFIED 01/03/2018 GERMAN BUSTILLO PROFESSOR OF MUSICOLOGY Ot G47.33 OBSTRUCTIVE SLEEP APNEA (ADULT) (PEDIATR 01/03/2018 GERMAN BUSTILLO PROFESSOR OF MUSICOLOGY Ot R06.83 SNORING 01/05/2018 GERMAN BUSTILLO PROFESSOR OF MUSICOLOGY Ot G47.10 HYPERSOMNIA, UNSPECIFIED 01/05/2018 GERMAN BUSTILLO PROFESSOR OF MUSICOLOGY Ot G47.33 OBSTRUCTIVE SLEEP APNEA (ADULT) (PEDIATR 01/05/2018 GERMAN BUSTILLO PROFESSOR OF MUSICOLOGY Ot R06.83 SNORING 01/10/2018 GERMAN BUSTILLO PROFESSOR OF MUSICOLOGY Ot G47.10 HYPERSOMNIA, UNSPECIFIED 01/10/2018 GERMAN BUSTILLO PROFESSOR OF MUSICOLOGY Ot G47.33 OBSTRUCTIVE SLEEP APNEA (ADULT) (PEDIATR 01/10/2018 GERMAN BUSTILLO PROFESSOR OF MUSICOLOGY Ot R06.83 SNORING 01/18/2018 MIR VELEZ QUALITY LAB TECHNICIAN Ot G47.33 OBSTRUCTIVE SLEEP APNEA (ADULT) (PEDIATR 01/22/2018 MIR VELEZ QUALITY LAB TECHNICIAN Ot G47.33 OBSTRUCTIVE SLEEP APNEA (ADULT) (PEDIATR 01/22/2018 MIR VELEZ QUALITY LAB TECHNICIAN Ot G47.33 OBSTRUCTIVE SLEEP APNEA (ADULT) (PEDIATR 02/11/2018 ISABELA SMITH APRN Ot I80.02 PHLEBITIS AND THOMBOPHLB OF SUPERFIC VES 02/11/2018 SHANIA CHÁVEZ MD Ot I82.401 ACUTE EMBOLISM AND THOMBOS UNSP DEEP VEI 02/12/2018 SHANIA CHÁVEZ MD Ot I82.401 ACUTE EMBOLISM AND THOMBOS UNSP DEEP VEI 02/15/2018 SHANIA CHÁVEZ MD Ot I82.401 ACUTE EMBOLISM AND THOMBOS UNSP DEEP VEI 02/16/2018 SHANIA CHÁVEZ MD Ot I82.812 EMBOLISM AND THROMBOSIS OF SUPERFICIAL V 02/16/2018 SHANIA CHÁVEZ MD Ot I82.812 EMBOLISM AND THROMBOSIS OF SUPERFICIAL V 02/25/2018 SHANIA CHÁVEZ MD Ot I82.812 EMBOLISM AND THROMBOSIS OF SUPERFICIAL V 02/26/2018 SHANIA CHÁVEZ MD Ot I82.812 EMBOLISM AND THROMBOSIS OF SUPERFICIAL V 03/29/2018 Ot V72.84 EXA M PRE- OPERATIVE NOS 03/29/2018 GERMAN BUSTILLO Ot M25.511 PAIN IN RIGHT SHOULDER 03/29/2018 ISABELA SMITH APRN Ot I80.02 PHLEBITIS AND THOMBOPHLB OF SUPERFIC VES 03/29/2018 SHANIA CHÁVEZ MD Ot I82.812 EMBOLISM AND THROMBOSIS OF SUPERFICIAL V 03/29/2018 SHANIA CHÁVEZ MD Ot I82.812 EMBOLISM AND THROMBOSIS OF SUPERFICIAL V 03/29/2018 ISABELA SMITH APRN Ot I80.02 PHLEBITIS AND THOMBOPHLB OF SUPERFIC VES 05/07/2018 SHANIA CHÁVEZ MD Ot I82.812 EMBOLISM AND THROMBOSIS OF SUPERFICIAL V 05/26/2018 Ot V72.84 EXA M PRE- OPERATIVE NOS 05/26/2018 GERMAN BUSTILLO Ot M25.511 PAIN IN RIGHT SHOULDER 05/26/2018 ISABELA SMITH APRN Ot I80.02 PHLEBITIS AND THOMBOPHLB OF SUPERFIC VES 05/26/2018 SHANIA CHÁVEZ MD Ot I82.812 EMBOLISM AND THROMBOSIS OF SUPERFICIAL V 05/26/2018 SHANIA CHÁVEZ MD Ot I82.812 EMBOLISM AND THROMBOSIS OF SUPERFICIAL V 07/09/2018 ISABELA SMITH APRN Ot I80.02 PHLEBITIS AND THOMBOPHLB OF SUPERFIC VES 12/15/2018 MANINDER SZYMANSKI MD, Ot B37.81 CANDIDAL ESOPHAGITIS 12/15/2018 MANINDER SZYMANSKI MD, Ot D50 .9 IRON DEFICIENCY ANEMIA, UNSPECIFIED 12/15/2018 MANINDER SZYMANSKI MD Ot E11 .9 TYPE 2 DIABETES MELLITUS WITHOUT COMPLIC 12/15/2018 MANINDER SZYMANSKI MD, Ot F32 .9 MAJOR DEPRESSIVE DISORDER, SINGLE EPISOD 12/15/2018 MANINDER SZYMANSKI MD, Ot G47.33 OBSTRUCTIVE SLEEP APNEA (ADULT) (PEDIATR 12/15/2018 MANINDER SZYMANSKI MD, Ot I10 ESSENTIAL (PRIMARY) HYPERTENSION 12/15/2018 MANINDER SZYMANSKI MD, Ot K21 .9 GASTRO-ESOPHAGEAL REFLUX DISEASE WITHOUT 12/15/2018 MANINDER SZYMANSKI MD Ot K57.30 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 OR AB 12/15/2018 MANINDER SZYMANSKI MD, Ot N28 .9 DISORDER OF KIDNEY AND URETER, UNSPECIFI 12/15/2018 MANINDER SZYMANSKI MD, Ot N40 .0 BENIGN PROSTATIC HYPERPLASIA WITHOUT LOW 12/15/2018 MANINDER SZYMANSKI MD Ot R19 .5 OTHER FECAL ABNORMALITIES 12/15/2018 MANINDER SZYMANSKI MD Ot Z79.82 ALF (CURRENT) USE OF ASPIRIN 12/15/2018 MANINDER SZYMANSKI MD, Ot Z79.84 ALF (CURRENT) USE OF ORAL HYPOGLYC 12/15/2018 MANNIDER SZYMANSKI MD, Ot Z79.899 OTHER ALF (CURRENT) DRUG THERAPY 12/15/2018 MANINDER SZYMANSKI MD, Ot Z86.010 PERSONAL HISTORY OF COLONIC POLYPS 12/15/2018 MANINDER SZYMANSKI MD, Ot Z98.84 BARIATRIC SURGERY STATUS 12/22/2018 MANINDER SZYMANSKI MD, Ot B37.81 CANDIDAL ESOPHAGITIS 12/22/2018 MANINDER SZYMANSKI MD, Ot D50 .9 IRON DEFICIENCY ANEMIA, UNSPECIFIED 12/22/2018 MANINDER SZYMANSKI MD Ot E11 .9 TYPE 2 DIABETES MELLITUS WITHOUT COMPLIC 12/22/2018 MANINDER SZYMANSKI MD, Ot F32 .9 MAJOR DEPRESSIVE DISORDER, SINGLE EPISOD 12/22/2018 MANINDER SZYMANSKI MD, Ot G47.33 OBSTRUCTIVE SLEEP APNEA (ADULT) (PEDIATR 12/22/2018 MANINDER SZYMANSKI MD Ot I10 ESSENTIAL (PRIMARY) HYPERTENSION 12/22/2018 MANINDER SZYMANSKI MD, Ot K21 .9 GASTRO-ESOPHAGEAL REFLUX DISEASE WITHOUT 12/22/2018 MANINDER SZYMANSKI MD Ot K57.30 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 OR AB 12/22/2018 MANINDER SZYMANSKI MD, Ot N28 .9 DISORDER OF KIDNEY AND URETER, UNSPECIFI 12/22/2018 MANINDER SZYMANSKI MD, Ot N40 .0 BENIGN PROSTATIC HYPERPLASIA WITHOUT LOW 12/22/2018 MANINDER SZYMANSKI MD Ot R19 .5 OTHER FECAL ABNORMALITIES 12/22/2018 MANINDER SZYMANSKI MD, Ot Z79.82 ALF (CURRENT) USE OF ASPIRIN 12/22/2018 MANINDER SZYMANSKI MD, Ot Z79.84 ALF (CURRENT) USE OF ORAL HYPOGLYC 12/22/2018 MANINDER SZYMANSKI MD, Ot Z79.899 OTHER ALF (CURRENT) DRUG THERAPY 12/22/2018 MANINDER SZYMANSKI MD, Ot Z86.010 PERSONAL HISTORY OF COLONIC POLYPS 12/22/2018 MANINDER SZYMANSKI MD, Ot Z98.84 BARIATRIC SURGERY STATUS 12/22/2018 MANINDER SZYMANSKI MD, Ot B37.81 CANDIDAL ESOPHAGITIS 12/22/2018 MANINDER SZYMANSKI MD, Ot D50 .9 IRON DEFICIENCY ANEMIA, UNSPECIFIED 12/22/2018 MANINDER SZYMANSKI MD Ot E11 .9 TYPE 2 DIABETES MELLITUS WITHOUT COMPLIC 12/22/2018 MANINDER SZYMANSKI MD, Ot F32 .9 MAJOR DEPRESSIVE DISORDER, SINGLE EPISOD 12/22/2018 MANINDER SZYMANSKI MD, Ot G47.33 OBSTRUCTIVE SLEEP APNEA (ADULT) (PEDIATR 12/22/2018 MANINDER SZYMANSKI MD Ot I10 ESSENTIAL (PRIMARY) HYPERTENSION 12/22/2018 MANINDER SZYMANSKI MD Ot K21 .9 GASTRO-ESOPHAGEAL REFLUX DISEASE WITHOUT 12/22/2018 MANINDER SZYMANSKI MD Ot K57.30 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 OR AB 12/22/2018 MANINDER SZYMANSKI MD, Ot N28 .9 DISORDER OF KIDNEY AND URETER, UNSPECIFI 12/22/2018 MANINDER SZYMANSKI MD, Ot N40 .0 BENIGN PROSTATIC HYPERPLASIA WITHOUT LOW 12/22/2018 MANINDER SZYMANSKI MD Ot R19 .5 OTHER FECAL ABNORMALITIES 12/22/2018 MANINDER SZYMANSKI MD, Ot Z79.82 ALF (CURRENT) USE OF ASPIRIN 12/22/2018 MANINDER SZYMANSKI MD, Ot Z79.84 WHEEL GRINDER (CURRENT) USE OF ORAL HYPOGLYC 12/22/2018 MANINDER SZYMANSKI MD, Ot Z79.899 OTHER ALF (CURRENT) DRUG THERAPY 12/22/2018 MANINDER SZYMANSKI MD, Ot Z86.010 PERSONAL HISTORY OF COLONIC POLYPS 12/22/2018 MANINDER SZYMANSKI MD, Ot Z98.84 BARIATRIC SURGERY STATUS 12/23/2018 MANINDER SZYMANSKI MD, Ot B37.81 CANDIDAL ESOPHAGITIS 12/23/2018 MANINDER SZYMANSKI MD, Ot D50 .9 IRON DEFICIENCY ANEMIA, UNSPECIFIED 12/23/2018 MANINDER SZYMANSKI MD Ot E11 .9 TYPE 2 DIABETES MELLITUS WITHOUT COMPLIC 12/23/2018 MANINDER SZYMANSKI MD, Ot F32 .9 MAJOR DEPRESSIVE DISORDER, SINGLE EPISOD 12/23/2018 MANINDER SZYMANSKI MD, Ot G47.33 OBSTRUCTIVE SLEEP APNEA (ADULT) (PEDIATR 12/23/2018 MANINDER SZYMANSKI MD, Ot I10 ESSENTIAL (PRIMARY) HYPERTENSION 12/23/2018 MANINDER SZYMANSKI MD Ot K21 .9 GASTRO-ESOPHAGEAL REFLUX DISEASE WITHOUT 12/23/2018 MANINDER SZYMANSKI MD Ot K57.30 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 OR AB 12/23/2018 MANINDER SZYMANSKI MD, Ot N28 .9 DISORDER OF KIDNEY AND URETER, UNSPECIFI 12/23/2018 MANINDER SZYMANSKI MD Ot N40 .0 BENIGN PROSTATIC HYPERPLASIA WITHOUT LOW 12/23/2018 MANINDER SZYMANSKI MD Ot R19 .5 OTHER FECAL ABNORMALITIES 12/23/2018 MANINDER SZYMANSKI MD, Ot Z79.82 WHEEL GRINDER (CURRENT) USE OF ASPIRIN 12/23/2018 MANINDER SZYMANSKI MD Ot Z79.84 ALF (CURRENT) USE OF ORAL HYPOGLYC 12/23/2018 MANINDER SZYMANSKI MD Ot Z79.899 OTHER WHEEL GRINDER (CURRENT) DRUG THERAPY 12/23/2018 MANINDER SZYMANSKI MD Ot Z86.010 PERSONAL HISTORY OF COLONIC POLYPS 12/23/2018 MANINDER SZYMANSKI MD Ot Z98.84 BARIATRIC SURGERY STATUS 12/21/2019 GERMAN BUSTILLO Ot M25.511 PAIN IN RIGHT SHOULDER 12/21/2019 LUIS ISABELASCOT Holley APRN Ot 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 9 TYPE 2 DIABETES MELLITUS WITHOUT COMPLIC 01/05/2020 PARISA REDD DO Ot E66. 9 OBESITY, UNSPECIFIED 01/05/2020 PARISA REDD DO Ot E78. 5 HYPERLIPIDEMIA, UNSPECIFIED 01/05/2020 PARISA REDD DO Ot F32. 9 MAJOR DEPRESSIVE DISORDER, SINGLE EPISOD 01/05/2020 PARISA REDD DO Ot G47. 33 OBSTRUCTIVE SLEEP APNEA (ADULT) (PEDIATR 01/05/2020 PARISA REDD DO Ot I10 ESSENTIAL (PRIMARY) HYPERTENSION 01/05/2020 PARISA REDD DO Ot J43. 9 EMPHYSEMA, UNSPECIFIED 01/05/2020 PARISA REDD DO Ot K21. 9 GASTRO-ESOPHAGEAL REFLUX DISEASE WITHOUT 01/05/2020 PARISA REDD DO Ot M19. 91 PRIMARY OSTEOARTHRITIS, UNSPECIFIED SITE 01/05/2020 PARISA REDD DO Ot Z11. 2 ENCOUNTER FOR SCREENING FOR OTHER BACTER 01/05/2020 PARISA REDD DO Ot Z68. 37 BODY MASS INDEX (BMI) 37.0-37.9, ADULT 01/05/2020 PARISA REDD DO Ot Z79. 84 ALF (CURRENT) USE OF ORAL HYPOGLYC 01/05/2020 PARISA REDD DO Ot Z79.899 OTHER ALF (CURRENT) DRUG THERAPY 01/05/2020 PARISA REDD DO Ot Z98. 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 9 TYPE 2 DIABETES MELLITUS WITHOUT COMPLIC 01/10/2020 PARISA REDD DO Ot E66. 9 OBESITY, UNSPECIFIED 01/10/2020 PARISA REDD DO Ot E78. 5 HYPERLIPIDEMIA, UNSPECIFIED 01/10/2020 PARISA REDD DO Ot F32. 9 MAJOR DEPRESSIVE DISORDER, SINGLE EPISOD 01/10/2020 PARISA REDD DO Ot G47. 33 OBSTRUCTIVE SLEEP APNEA (ADULT) (PEDIATR 01/10/2020 PARISA REDD DO Ot I10 ESSENTIAL (PRIMARY) HYPERTENSION 01/10/2020 PARISA REDD DO Ot J43. 9 EMPHYSEMA, UNSPECIFIED 01/10/2020 PARISA REDD DO Ot K21. 9 GASTRO-ESOPHAGEAL REFLUX DISEASE WITHOUT 01/10/2020 PARISA REDD DO Ot M19. 91 PRIMARY OSTEOARTHRITIS, UNSPECIFIED SITE 01/10/2020 PARISA REDD DO Ot Z11. 2 ENCOUNTER FOR SCREENING FOR OTHER BACTER 01/10/2020 PARISA REDD DO Ot Z68. 37 BODY MASS INDEX (BMI) 37.0-37.9, ADULT 01/10/2020 PARISA REDD DO Ot Z79. 84 WHEEL GRINDER (CURRENT) USE OF ORAL HYPOGLYC 01/10/2020 PARISA REDD DO Ot Z79.899 OTHER WHEEL GRINDER (CURRENT) DRUG THERAPY 01/10/2020 PARISA REDD DO Ot Z98. 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 9 TYPE 2 DIABETES MELLITUS WITHOUT COMPLIC 01/12/2020 PARISA REDD DO Ot E66. 9 OBESITY, UNSPECIFIED 01/12/2020 PARISA REDD DO Ot E78. 5 HYPERLIPIDEMIA, UNSPECIFIED 01/12/2020 REDD PARISA MELÉNDEZ D Ot F32. 9 MAJOR DEPRESSIVE DISORDER, SINGLE EPISOD 01/12/2020 PARISA REDD DO Ot G47. 33 OBSTRUCTIVE SLEEP APNEA (ADULT) (PEDIATR 01/12/2020 REDD PARISA MELÉNDEZ Ot I10 ESSENTIAL (PRIMARY) HYPERTENSION 01/12/2020 REDD PARISA MELÉNDEZ Ot J43. 9 EMPHYSEMA, UNSPECIFIED 01/12/2020 REDD PARISA MELÉNDEZ Ot K21. 9 GASTRO-ESOPHAGEAL REFLUX DISEASE WITHOUT 01/12/2020 REDD PARISA MELÉNDEZ Ot M19. 91 PRIMARY OSTEOARTHRITIS, UNSPECIFIED SITE 01/12/2020 REDD PARISA MELÉNDEZ Ot Z11. 2 ENCOUNTER FOR SCREENING FOR OTHER BACTER 01/12/2020 PARISA REDD DO Ot Z68. 37 BODY MASS INDEX (BMI) 37.0-37.9, ADULT 01/12/2020 PARISA REDD DO Ot Z79. 84 ALF (CURRENT) USE OF ORAL HYPOGLYC 01/12/2020 PARISA REDD DO Ot Z79.899 OTHER ALF (CURRENT) DRUG THERAPY 01/12/2020 PARISA REDD DO Ot Z98. 84 BARIATRIC SURGERY STATUS 02/25/2020 ZUNILDA LOUISE APRN Ot G47.33 OBSTRUCTIVE SLEEP APNEA (ADULT) (PEDIATR 02/25/2020 ZUNILDA LOUISE APRN Ot J30.9 ALLERGIC RHINITIS, UNSPECIFIED 02/25/2020 ZUNILDA LOUISE APRN Ot J44.9 CHRONIC OBSTRUCTIVE PULMONARY DISEASE, U 02/25/2020 ZUNILDA LOUISE QUALITY LAB TECHNICIAN Ot R91.8 OTHER NONSPECIFIC ABNORMAL FINDING OF KINDRA 03/01/2020 ZUNILDA LOUISE APRN Ot G47.33 OBSTRUCTIVE SLEEP APNEA (ADULT) (PEDIATR 03/01/2020 DANI, ZUNILDA E QUALITY LAB TECHNICIAN Ot J30.9 ALLERGIC RHINITIS, UNSPECIFIED 03/01/2020 DANI, ZUNILDA E QUALITY LAB TECHNICIAN Ot J44.9 CHRONIC OBSTRUCTIVE PULMONARY DISEASE, U 03/01/2020 DANI, ZUNILDA E QUALITY LAB TECHNICIAN Ot R91.8 OTHER NONSPECIFIC ABNORMAL FINDING OF KINDRA 03/28/2020 KACY LOUISEINE Yeimy QUALITY LAB TECHNICIAN Ot G47.33 OBSTRUCTIVE SLEEP APNEA (ADULT) (PEDIATR 03/28/2020 DANI, ZUNILDA E QUALITY LAB TECHNICIAN Ot J30.9 ALLERGIC RHINITIS, UNSPECIFIED 03/28/2020 DANI, ZUNILDA E QUALITY LAB TECHNICIAN Ot J44.9 CHRONIC OBSTRUCTIVE PULMONARY DISEASE, U 03/28/2020 DANI, ZUNILDA E QUALITY LAB TECHNICIAN Ot R91.8 OTHER NONSPECIFIC ABNORMAL FINDING OF KINDRA Procedures Code Description [place] [address] A1C (IN-HOUSE) 11/23/2012 Ghassan Bowers 12/23/2012 25548 TSH 01/10/2013 36372 CBC 01/10/2013 13982 CMP 01/10/2013 63044 LIPI D PANEL 01/10/2013 3595259 GF R CALC (RESULT ONLY) 01/10/2013 43323 PSYC H DIAGNOSTIC EVALUATION 02/21/2013 10379 A1C (IN-HOUSE) 03/15/2013 35407 PSYT X PT&/FAMILY 45 MINUTES 04/08/2013 86555 PSYT X PT&/FAMILY 45 MINUTES 06/23/2013 82768 PSYT X PT&/FAMILY 45 MINUTES 07/14/2013 66368 PSYT X PT&/FAMILY 45 MINUTES 08/04/2013 78912 A1C (IN-HOUSE) 10/17/2013 20939 ROUT INE VENIPUNCTURE 01/18/2014 99900 CMP 01/18/2014 97705 LIPI D PANEL 01/18/2014 30121 PSA TOTAL 01/18/2014 80548 A1C (IN-HOUSE) 01/18/2014 23953 CBC 01/18/2014 84609 XRAY CHEST 2 VIEW 04/05/2014 80579 A1C (IN-HOUSE) 07/28/2014 87893 SLEE P STUDY (HOSPITAL- SLEEP STUDY) 02/02/2015 G0102 PROS ALAN CA SCREENING; FELISA 02/02/2015 47164 A1C (IN-HOUSE) 02/02/2015 19579 MICR O ALBUMIN-IN HOUSE 02/02/2015 Results Test Result Range CBC With Differential/Platelet - 6 08:09 WBC 5.1 x10E3/uL 3.4-10.8 RBC 4.76 x10E6/uL 4.14-5.80 Hemoglobin 13.8 g/dL 12.6-17.7 Hematocrit 42.6 % 37.5-51.0 MCV 90 fL 79-97 MCH 29.0 pg 26.6-33.0 MCHC 32.4 g/dL 31.5-35.7 RDW 13.9 % 12.3-15.4 Platelets 185 x10E3/uL 150-379 Neutrophils 64 % Lymphs 20 % Monocytes 12 % Eos 3 % Basos 1 % Neutrophils (Absolute) 3.3 x10E3/uL 1.4- 7.0 Lymphs (Absolute) 1.0 x10E3/uL 0.7-3.1 Monocytes(Absolute) 0.6 x10E3/uL 0.1-0.9 Eos (Absolute) 0.1 x10E3/uL 0.0-0.4 Baso (Absolute) 0.0 x10E3/uL 0.0-0.2 Immature Granulocytes 0 % Immature Grans (Abs) 0.0 x10E3/uL 0.0-0. 1 Comp. Metabolic Panel (14) - 07/30/16 08 :09 Glucose, Serum 107 mg/dL 65-99 BUN 28 mg/dL 8-27 Creatinine, Serum 1.17 mg/dL 0.76-1.27 eGFR If NonAfricn Am 65 mL/min/1.73 >59 eGFR If Africn Am 75 mL/min/1.73 >59 BUN/Creatinine Ratio 24 10-22 Sodium, Serum 141 mmol/L 134-144 Potassium, Serum 5.0 mmol/L 3.5-5.2 Chloride, Serum 99 mmol/L 97-108 Carbon Dioxide, Total 24 mmol/L 18-29 Calcium, Serum 9.0 mg/dL 8.6-10.2 Protein, Total, Serum 6.3 g/dL 6.0-8.5 Albumin, Serum 4.0 g/dL 3.6-4.8 Globulin, Total 2.3 g/dL 1.5-4.5 A/G Ratio 1.7 1.1-2.5 Bilirubin, Total 0.5 mg/dL 0.0-1.2 Alkaline Phosphatase, S 37 IU/L 39-117 AST (SGOT) 16 IU/L 0-40 ALT (SGPT) 11 IU/L 0-44 Lipid Panel - 07/30/16 08:09 Cholesterol, Total 214 mg/dL 100-199 Triglycerides 147 mg/dL 0-149 HDL Cholesterol 37 mg/dL >39 VLDL Cholesterol Serge 29 mg/dL 5-40 LDL Cholesterol Calc 148 mg/dL 0-99 CBC With Differential/Platelet - 7 08:18 WBC 5.4 x10E3/uL 3.4-10.8 RBC 4.94 x10E6/uL 4.14-5.80 Hemoglobin 13.8 g/dL 12.6-17.7 Hematocrit 42.5 % 37.5-51.0 MCV 86 fL 79-97 MCH 27.9 pg 26.6-33.0 MCHC 32.5 g/dL 31.5-35.7 RDW 14.1 % 12.3-15.4 Platelets 228 x10E3/uL 150-379 Neutrophils 66 % Lymphs 23 % Monocytes 8 % Eos 2 % Basos 1 % Neutrophils (Absolute) 3.6 x10E3/uL 1.4- 7.0 Lymphs (Absolute) 1.3 x10E3/uL 0.7-3.1 Monocytes(Absolute) 0.4 x10E3/uL 0.1-0.9 Eos (Absolute) 0.1 x10E3/uL 0.0-0.4 Baso (Absolute) 0.0 x10E3/uL 0.0-0.2 Immature Granulocytes 0 % Immature Grans (Abs) 0.0 x10E3/uL 0.0-0. 1 Comp. Metabolic Panel (14) - 04/03/17 08 :18 Glucose, Serum 120 mg/dL 65-99 BUN 20 mg/dL 8-27 Creatinine, Serum 1.11 mg/dL 0.76-1.27 eGFR If NonAfricn Am 68 mL/min/1.73 >59 eGFR If Africn Am 79 mL/min/1.73 >59 BUN/Creatinine Ratio 18 10-24 Sodium, Serum 141 mmol/L 134-144 Potassium, Serum 4.5 mmol/L 3.5-5.2 Chloride, Serum 100 mmol/L 96-106 Carbon Dioxide, Total 26 mmol/L 18-29 Calcium, Serum 8.9 mg/dL 8.6-10.2 Protein, Total, Serum 6.1 g/dL 6.0-8.5 Albumin, Serum 4.0 g/dL 3.6-4.8 Globulin, Total 2.1 g/dL 1.5-4.5 A/G Ratio 1.9 1.2-2.2 Bilirubin, Total 0.5 mg/dL 0.0-1.2 Alkaline Phosphatase, S 40 IU/L 39-117 AST (SGOT) 16 IU/L 0-40 ALT (SGPT) 14 IU/L 0-44 Lipid Panel - 04/03/17 08:18 Cholesterol, Total 190 mg/dL 100-199 Triglycerides 147 mg/dL 0-149 HDL Cholesterol 44 mg/dL >39 VLDL Cholesterol Serge 29 mg/dL 5-40 LDL Cholesterol Calc 117 mg/dL 0-99 PSA - 08/20/17 14:13 Prostate Specific Ag, Serum 2.9 ng/mL 0. 0-4.0 Prostate-Specific Ag, Serum - 08/20/17 1 4:13 Prostate Specific Ag, Serum 2.9 ng/mL 0. 0-4.0 Blood or tissue F5 gene p.R506Q detectio n by molecular genetics method - 02/12/18 12:00 Blood or tissue F5 gene p.R506Q detectio n by molecular genetics method Negative Negative Coagulation factor 5 activated measureme nt (units/volume) in platelet poor plasma by coagulation assay See Footnote NRG Complete blood count (CBC) with automate d white blood cell (WBC) differential - 12/13/18 18:08 Blood leukocytes automated count (number/volume) 11.1 10*3/uL 4.3-11.0 Blood erythrocytes automated count (number/volume) 3.62 10*6/uL 4.35-5.85 Venous blood hemoglobin measurement (mass/volume) 10.3 g/dL 13.3-17.7 Blood hematocrit (volume fraction) 31 % 40-54 Automated erythrocyte mean corpuscular volume 87 [ foz_us] 80-99 Automated erythrocyte mean corpuscular h emoglobin (mass per erythrocyte) 29 pg 25-34 Automated erythrocyte mean corpuscular h emoglobin concentration measurement (mass/volume) 33 g/dL 32-36 Automated erythrocyte distribution width ratio 14. 9 % 10.0- 14.5 Automated blood platelet count (count/volume) 426 10*3/uL 130-400 Automated blood platelet mean volume measurement 9.0 [foz_us] 7.4-10.4 Automated blood neutrophils/100 leukocytes 76 % 42-75 Automated blood lymphocytes/100 leukocytes 12 % 12-44 Blood monocytes/100 leukocytes 10 % 0-12 Automated blood eosinophils/100 leukocytes 2 % 0-10 Automated blood basophils/100 leukocytes 1 % 0-10 Blood neutrophils automated count (number/volume) 8.4 10*3 1.8-7.8 Blood lymphocytes automated count (number/volume) 1.3 10*3 1.0-4.0 Blood monocytes automated count (number/volume) 1. 1 10*3 0.0-1.0 Automated eosinophil count 0.2 10*3/uL 0 .0-0.3 Automated blood basophil count (count/volume) 0.1 10*3/uL 0.0-0.1 Comprehensive metabolic panel - 12/13/18 18:08 Serum or plasma sodium measurement (moles/volume) 136 mmol/L 135-145 Serum or plasma potassium measurement (moles/volume) 4.8 mmol/L 3.6-5.0 Serum or plasma chloride measurement (moles/volume) 106 mmol/L 98-107 Carbon dioxide 17 mmol/L 21-32 Serum or plasma anion gap determination (moles/volume) 13 mmol/L 5-14 Serum or plasma urea nitrogen measurement (mass/volume ) 57 mg/dL 7-18 Serum or plasma creatinine measurement (mass/volume) 2.18 mg/dL 0.60-1.30 Serum or plasma urea nitrogen/creatinine mass ratio 26 NRG Serum or plasma creatinine measurement w ith calculation of estimated glomerular filtration rate 30 NRG Serum or plasma glucose measurement (mass/volume) 122 mg/dL 70-105 Serum or plasma calcium measurement (mass/volume) 9.2 mg/dL 8.5-10.1 Serum or plasma total bilirubin measurement (mass/volu me) 0.4 mg/dL 0.1-1.0 Serum or plasma alkaline phosphatase delfina surement (enzymatic activity/volume) 36 U/L 40-136 Serum or plasma aspartate aminotransfera se measurement (enzymatic activity/volume) 17 U/L 5-34 Serum or plasma alanine aminotransferase measurement (enzymatic activity/volume) 13 U/L 0-55 Serum or plasma protein measurement (mass/volume) 6.6 g/dL 6.4-8.2 Serum or plasma albumin measurement (mass/volume) 4.0 g/dL 3.2-4.5 CALCIUM CORRECTED 9.2 mg/dL 8.5-10.1 Whole blood hemoglobin and hematocrit [facility] [place] 12/13/18 20:02 Venous blood hemoglobin measurement (mass/volume) 9.4 g/dL 13.3-17.7 Blood hematocrit (volume fraction) 29 % 40-54 Whole blood hemoglobin and hematocrit [facility] [place] 12/14/18 00:17 Venous blood hemoglobin measurement (mass/volume) 9.0 g/dL 13.3-17.7 Blood hematocrit (volume fraction) 28 % 40-54 Whole blood hemoglobin and hematocrit [facility] [place] 12/14/18 04:15 Venous blood hemoglobin measurement (mass/volume) 8.9 g/dL 13.3-17.7 Blood hematocrit (volume fraction) 27 % 40-54 Whole blood basic metabolic panel - 03/27 04:15 Serum or plasma sodium measurement (moles/volume) 137 mmol/L 135-145 Serum or plasma potassium measurement (moles/volume) 4.6 mmol/L 3.6-5.0 Serum or plasma chloride measurement (moles/volume) 108 mmol/L 98-107 Carbon dioxide 20 mmol/L 21-32 Serum or plasma anion gap determination (moles/volume) 9 mmol/L 5-14 Serum or plasma urea nitrogen measurement (mass/volume ) 48 mg/dL 7-18 Serum or plasma creatinine measurement (mass/volume) 1.36 mg/dL 0.60-1.30 Serum or plasma urea nitrogen/creatinine mass ratio 35 NRG Serum or plasma creatinine measurement w ith calculation of estimated glomerular filtration rate 52 NRG Serum or plasma glucose measurement (mass/volume) 108 mg/dL 70-105 Serum or plasma calcium measurement (mass/volume) 8.4 mg/dL 8.5-10.1 Pathologist review of blood test by penelope henderson - 12/14/18 04:15 Blood leukocytes automated count (number/volume) 6.7 10*3/uL 4.3-11.0 Blood erythrocytes automated count (number/volume) 3.16 10*6/uL 4.35-5.85 Venous blood hemoglobin measurement (mass/volume) 8.8 g/dL 13.3-17.7 Blood hematocrit (volume fraction) 28 % 40-54 Automated erythrocyte mean corpuscular volume 87 [ foz_us] 80-99 Automated erythrocyte mean corpuscular h emoglobin (mass per erythrocyte) 28 pg 25-34 Automated erythrocyte mean corpuscular h emoglobin concentration measurement (mass/volume) 32 g/dL 32-36 Automated erythrocyte distribution width ratio 15. 0 % 10.0- 14.5 Automated blood platelet count (count/volume) 399 10*3/uL 130-400 Automated blood platelet mean volume measurement 8.8 [foz_us] 7.4-10.4 Automated blood neutrophils/100 leukocytes 68 % 42-75 Automated blood lymphocytes/100 leukocytes 15 % 12-44 Blood monocytes/100 leukocytes 10 % NRG Automated blood eosinophils/100 leukocytes 4 % 0-10 Automated blood basophils/100 leukocytes 1 % 0-10 Blood neutrophils automated count (number/volume) 4.6 10*3 1.8-7.8 Blood lymphocytes automated count (number/volume) 1.0 10*3 1.0-4.0 Blood monocytes automated count (number/volume) 0. 8 10*3 0.0-1.0 Automated eosinophil count 0.2 10*3/uL 0 .0-0.3 Automated blood basophil count (count/volume) 0.1 10*3/uL 0.0-0.1 Manual blood segmented neutrophils/100 leukocytes 62 % NRG Blood band neutrophils/100 leukocytes 2 % NRG Manual blood lymphocytes/100 leukocytes 21 % NRG Manual eosinophils/100 leukocytes in nose 4 % NRG Manual blood basophils/100 leukocytes 1 % NRG Blood anisocytosis detection by light microscopy S LIGHT NRG Blood reticulocytes count (number/volume) 66 10*9/ L 24-90 Blood reticulocytes/100 erythrocytes 2.09 % 0.50-2.40 Serum iron and total iron binding capaci ty panel - 12/14/18 04:15 Serum or plasma iron measurement (mass/volume) 37 % 40-180 Total iron binding capacity and transferrin saturation measurement 11 % 15-50 Iron binding capacity [mass/volume] in serum or plasma 336 % 280-380 UIBC (unsaturated iron binding capacity) 299 % 55-450 Serum or plasma ferritin measurement (mass/volume) 16.0 % 32.0-356.0 Automated blood complete blood count (he mogram) panel - 12/15/18 05:45 Blood leukocytes automated count (number/volume) 5.1 10*3/uL 4.3-11.0 Blood erythrocytes automated count (number/volume) 3.21 10*6/uL 4.35-5.85 Venous blood hemoglobin measurement (mass/volume) 9.1 g/dL 13.3-17.7 Blood hematocrit (volume fraction) 28 % 40-54 Automated erythrocyte mean corpuscular volume 88 [ foz_us] 80-99 Automated erythrocyte mean corpuscular h emoglobin (mass per erythrocyte) 28 pg 25-34 Automated erythrocyte mean corpuscular h emoglobin concentration measurement (mass/volume) 32 g/dL 32-36 Automated erythrocyte distribution width ratio 14. 9 % 10.0- 14.5 Automated blood platelet count (count/volume) 356 10*3/uL 130-400 Automated blood platelet mean volume measurement 8.3 [foz_us] 7.4-10.4 Whole blood basic metabolic panel - 04/27 05:45 Serum or plasma sodium measurement (moles/volume) 138 mmol/L 135-145 Serum or plasma potassium measurement (moles/volume) 4.6 mmol/L 3.6-5.0 Serum or plasma chloride measurement (moles/volume) 107 mmol/L 98-107 Carbon dioxide 26 mmol/L 21-32 Serum or plasma anion gap determination (moles/volume) 5 mmol/L 5-14 Serum or plasma urea nitrogen measurement (mass/volume ) 30 mg/dL 7-18 Serum or plasma creatinine measurement (mass/volume) 0.90 mg/dL 0.60-1.30 Serum or plasma urea nitrogen/creatinine mass ratio 33 NRG Serum or plasma creatinine measurement w ith calculation of estimated glomerular filtration rate > NRG Serum or plasma glucose measurement (mass/volume) 109 mg/dL 70-105 Serum or plasma calcium measurement (mass/volume) 8.4 mg/dL 8.5-10.1 C FUNGUS SPUTUM FLUID TISSUE - 12/15/18 14:03 QUANTITY OF GROWTH . NRG C FUNGUS SPUTUM FLUID TISSUE PROGRESS N RG CBC - 12/16/19 08:36 WHITE BLOOD CELL COUNT 5.0 Thousand/uL 3 .8-10.8 RED BLOOD CELL COUNT 5.21 Million/uL 4.2 0-5.80 HEMOGLOBIN 11.0 g/dL 13.2-17.1 HEMATOCRIT 38.5 % 38.5-50.0 MCV 73.9 fL 80.0-100.0 MCH 21.1 pg 27.0-33.0 MCHC 28.6 g/dL 32.0-36.0 RDW 17.9 % 11.0-15.0 PLATELET COUNT 308 Thousand/uL 140-400 MPV 9.0 fL 7.5-12.5 ABSOLUTE NEUTROPHILS 2825 cells/uL 1500- 7800 ABSOLUTE LYMPHOCYTES 1280 cells/uL 850-3 900 ABSOLUTE MONOCYTES 615 cells/uL 200-950 ABSOLUTE EOSINOPHILS 200 cells/uL 15-500 ABSOLUTE BASOPHILS 80 cells/uL 0-200 NEUTROPHILS 56.5 % NRG LYMPHOCYTES 25.6 % NRG MONOCYTES 12.3 % NRG EOSINOPHILS 4.0 % NRG BASOPHILS 1.6 % NRG Arterial blood gas measurement - 0 08:10 Blood pCO2 39 mm[Hg] 35-45 Blood pO2 74 mm[Hg] 79-93 Arterial blood bicarbonate measurement (moles/volume) 24 mmol/L 23-27 Arterial blood base excess by calculation 0.0 mmol /L -2.5-2.5 Arterial blood oxygen saturation measurement 93 % 94-100 * Inhaled oxygen flow rate ROOM AIR NRG Arterial blood pH measurement with patient temperature correction 7.41 7.37-7.43 Arterial blood carbon dioxide, total measurement (mole s/volume) 25.5 mmol/L 21.0-31.0 Body site RT RAD NRG Assessment of wrist artery patency prior to arterial p uncture YES-POS NRG Setting of ventilation mode NO NR G Measurement of body temperature 36.5 NRG Capillary blood glucose measurement by g lucometer (mass/volume) - 01/05/20 11:56 Capillary blood glucose measurement by glucometer (mas s/volume) 101 mg/dL 70-110 Methicillin resistant Staphylococcus aur eus (MRSA) screening culture - 01/05/20 12:17 Methicillin resistant Staphylococcus aureus (MRSA) scr eening culture NEG NRG Encounters ACCT No. Visit Date/Time Discharge Status Pt. Type Provider Facility Loc./Unit Complaint [id number] 04/04/2017 08:35:00 Document Registration [id number] 07/31/2016 08:06:00 Document Registration [id number] 06/15/2020 08:30:00 ACT Outpatient GERMAN BUSTILLO APRN [facility] [id number] 12/16/2019 08:40:00 Document Registration [id number] 08/20/2017 14:20:00 Document Registration [id number] 01/05/2020 11:40:00 15:45:00 DIS Outpatient PARISA REDD DO [facility] BACK MASSES [id number] 01/04/2020 13:03:00 13:16:00 DIS Outpatient REDD PARISA MELÉNDEZ [facility] PREOP BACK MASSES [id number] 12/30/2019 07:21:00 23:59:59 CLS Outpatient ZUNILDA LOUISE APRN [facility] RT COUGH [id number] 12/13/2018 17:50:00 019 16:00:00 DIS Outpatient MANINDER SZYMANSKI MD [facility] ANEMIA [id number] 02/15/2018 07:30:00 018 23:59:59 CLS Outpatient SHANIA CHÁVEZ MD [facility] RAD I82.812 ACUTE SUPERFICI AL VENOUS THROMBOSIS [id number] 02/12/2018 11:46:00 018 23:59:59 CLS Outpatient SHANIA CHÁVEZ MD [facility] LAB I82.812 [id number] 02/10/2018 13:07:00 018 23:59:59 CLS Outpatient ISABELA SMITH APRN [facility] RAD M79.89 OTHER SP ECIFIED SOFT TISSUE DISORDERS [id number] 01/21/2018 20:40:00 018 06:25:00 DIS Outpatient MIR VELEZ APRN [facility] SLEEP OBSTRUCTIVE SLEEP APNE A [id number] 01/02/2018 20:45:00 018 06:15:00 DIS Outpatient GERMAN BUSTILLO [facility] SLEEP G47.33 EMIR [id number] 07/17/2016 12:48:00 15:43:00 DIS Outpatient CHUCK MAGDALENO MD [facility] REHAB COMP ROTATOR CUFF TEAR OR RUPTURE R SHOULDER [id number] 04/23/2016 08:09:00 13:50:00 DIS Outpatient CHUCK MAGDALENO MD [facility] SDC RIGHT TORN ROTATOR CUF F [id number] 04/16/2016 12:46:00 13:30:00 DIS Outpatient CHUCK MAGDALENO MD [facility] PREOP RIGHT TORN ROTATOR CUF F [id number] 04/02/2016 13:35:00 14:30:00 DIS Outpatient CHUCK MAGDALENO MD [facility] REHAB COMPLETER ROTATOR CUFF TEAR [id number] 02/21/2016 10:39:00 23:59:59 CLS Outpatient GERMAN BUSTILLO [facility] RAD RIGHT SHOULDER PAIN [id number] 04/06/2015 19:58:00 07:10:00 DIS Outpatient GERMAN BUSTILLO [facility] SLEEP OBSERVED APNEAS OBSTRU CTIVE SLEEP APNEAS [id number] 02/27/2015 19:39:00 06:13:00 DIS Outpatient GERMAN BUSTILLO [facility] SLEEP OBSERVED APNEAS SNORIN G CHOKING GASPING [id number] 06/21/2020 14:00:00 P CHAPITO ZUÑIGA MD, ROSMERY Negrete [facility] CARD CHEST PAIN [id number] 06/17/2020 08:34:[address] Emergency MURTAZA QUEVEDO, JYOTI Hernandez [facility] ER ABD/ BACK PAIN [id number] 01/31/2013 08:28:00 Document Registration [id number] 01/27/2013 08:09:00 Document Registration [id number] 03/05/2015 09:47:00 03/05/2015 23:59: 59 CLS Outpatient GERMAN BUSTILLO APRN [id number] 02/02/2015 08:45:00 02/02/2015 23:59: 59 CLS Outpatient GERMAN BUSTILLO APRN [id number] 12/06/2014 15:48:00 12/06/2014 23:59: 59 CLS Outpatient GERMAN BUSTILLO APRN [id number] 10/25/2014 17:20:00 10/25/2014 23:59: 59 CLS Outpatient GERMAN BUSTILLO APRN [id number] 07/28/2014 10:50:00 07/28/2014 23:59: 59 CLS Outpatient GERMAN BUSTILLO APRN [id number] 05/31/2014 09:53:00 05/31/2014 23:59: 59 CLS Outpatient GERMNA BUSTILLO APRN [id number] 04/05/2014 09:48:00 04/05/2014 23:59: 59 CLS Outpatient MARIA G LEGER DO Monika [id number] 01/18/2014 08:08:00 01/18/2014 23:59: 59 CLS Outpatient GERMAN BUSTILLO APRN [id number] 01/11/2014 16:13:00 01/11/2014 23:59: 59 CLS Outpatient GERMAN BUSTILLO APRN [id number] 12/13/2013 11:59:00 12/13/2013 23:59: 59 CLS Outpatient MARIA G LEGER DO Monika [id number] 10/17/2013 16:01:00 10/17/2013 23:59: 59 CLS Outpatient GERMAN BUSTILLO APRN [id number] 08/03/2013 09:57:00 08/03/2013 23:59: 59 CLS Outpatient JOYCE SIMMONS PHD [id number] 02/15/2013 14:19:00 02/15/2013 23:59: 59 CLS Outpatient [id number] 01/10/2013 08:58:00 01/10/2013 23:59: 59 CLS Outpatient [id number] 12/23/2012 09:48:00 12/23/2012 23:59: 59 CLS Outpatient GHASSAN PIÑA MD [id number] 11/23/2012 13:47:00 11/23/2012 23:59: 59 CLS Outpatient [id number] 08/17/2012 13:50:00 08/17/2012 23:59:5 9 CLS Outpatient [id number] 07/13/2013 09:51:00 Document Registration [id number] 06/22/2013 09:59:00 Document Registration [id number] 04/07/2013 16:04:00 Document Registration [id number] 03/15/2013 13:53:00 Document Registration [id number] 02/17/2013 14:48:00 Document Registration [id number] 08/21/2017 13:05:00 Document Registration
[2020-06-17 09:17] LABS: BASOPHILS % (AUTO) 0 % (0-10); EOSINOPHILS % (AUTO) 0 % (0-10); HEMATOCRIT 41 % (40-54); LYMPHOCYTES # (AUTO) 0.8 X 10^3 (1.0-4.0); LYMPHOCYTES % (AUTO) 7 % (12-44); MEAN CORPUSCULAR HEMOGLOBIN 23 PG (25-34); MEAN CORPUSCULAR HGB CONC 32 G/DL (32-36); MEAN CORPUSCULAR VOLUME 72 FL (80-99); MEAN PLATELET VOLUME 9.1 FL (7.4-10.4); MONOCYTES # (AUTO) 1.4 X 10^3 (0.0-1.0); MONOCYTES % (AUTO) 12 % (0-12); NEUTROPHILS # (AUTO) 9.6 X 10^3 (1.8-7.8); NEUTROPHILS % (AUTO) 82 % (42-75); PLATELET COUNT 355 10^3/uL (130-400); WHITE BLOOD COUNT 11.7 10^3/uL (4.3-11.0)
[2020-06-17 09:24] LABS: ALBUMIN 4.2 GM/DL (3.2-4.5); CHLORIDE 102 MMOL/L (98-107); POTASSIUM 4.1 MMOL/L (3.6-5.0); SODIUM 136 MMOL/L (135-145)
[2020-06-17 09:27] LABS: GLUCOSE 162 MG/DL (70-105); TOTAL PROTEIN 7.6 GM/DL (6.4-8.2)
--- NOTE | 2020-06-17 09:27 | ED GI ---
General Chief Complaint: Abdominal/GI Problems Stated Complaint: ABD/ BACK PAIN Nursing Triage Note: PT AMB TO [facility] 6 WITH COMPLAINT OF EPIGASTRIC/RUQ ABD PAIN THAT RADIATES TO BACK/SHOULDER. STATES STARTED LAST NIGHT. Sepsis Screen: No Definite Risk Source of Information: Patient Exam Limitations: No Limitations (LINDA URIBE MED STUDENT) History of Present Illness Date Seen by Provider: Jun 17, 2020 Time Seen by Provider: 08:40 Initial Comments This 70 year old male presents to the ER this morning complaining of RUQ pain. He states this has been going on since yesterday at 2 pm. He is having crampy RUQ pain that is radiating to his back and below his right shoulder blade. He states he at a peanut butter sandwich last night around 10, but this did not make his pain better or worse. He has had a history of constipation and attributes this to his medications. He states his last bowel movement was 3 days ago, and he denies seeing any blood in his stool. He states he did have an abdominal surgery in 1979. He also reports having an upper and lower GI series done at this hospital last year after noticing blood in his stool. He denies any vomiting, but has felt nauseous. He denies any urinary symptoms or chest pain, but admits to SOB with exertion, and states he will be seeing a router setter for this soon. Timing/Duration: 12-24 Hours Severity/Quality: Moderate, Cramping Location: RUQ Radiation: Back, Scapula (right) (LINDA URIBE,YVETTE STUDENT) Allergies and Home Medications Allergies Coded Allergies: No Known Drug Allergies (Unverified , 01/04/20) Home Medications Amlodipine Besylate 5 Mg Tablet, 5 MG PO DAILY, (Reported) Cyclobenzaprine HCl 10 Mg Tablet, 10 MG PO BID PRN for MUSCLE SPASMS, (Reported) Desvenlafaxine Succinate 100 Mg Tab.er.24h, 100 MG PO DAILY, (Reported) Docusate Sodium 100 Mg Capsule, 100 MG PO DAILY PRN for CONSTIPATION-1ST LINE, (Reported) Fish Oil/Dha/Epa 1 Each Capsule, 1,200 MG PO BID, (Reported) Gabapentin 100 Mg Capsule, 100 MG PO TID, (Reported) Ginkgo Biloba Extract 120 Mg Capsule, 120 MG PO HS, (Reported) Glipizide 5 Mg Tablet, 5 MG PO BID, (Reported) Loratadine 10 Mg Tablet, 10 MG PO DAILY, (Reported) Melatonin 10 Mg Capsule, 10 MG PO HS, (Reported) Metformin HCl 500 Mg Tablet, 500 MG PO TID, (Reported) Pantoprazole Sodium 40 Mg Tablet.dr, 40 MG PO DAILY, (Reported) Quetiapine Fumarate 100 Mg Tablet, 100 MG PO BID, (Reported) Quetiapine Fumarate 300 Mg Tablet, 300 MG PO HS, (Reported) Patient Home Medication List Home Medication List Reviewed: Yes (JYOTI HAUSER MD) Review of Systems Review of Systems Constitutional: no symptoms reported EENTM: No Symptoms Reported Respiratory: See HPI Cardiovascular: See HPI Gastrointestinal: No Symptoms Reported Genitourinary: No Symptoms Reported Musculoskeletal: see HPI Skin: no symptoms reported Psychiatric/Neurological: No Symptoms Reported Endocrine: No Symptoms Reported Hematologic/Lymphatic: No Symptoms Reported (LINDA URIBE MED STUDENT) Past Tberzse-Lokrks-Zwqgwz Hx Patient Social History Alcohol Use: Denies Use Recreational Drug Use: No Smoking Status: Never a Smoker 2nd Hand Smoke Exposure: Yes Recent Foreign Travel: No Contact w/Someone Who Travel: No Recent Infectious Disease Expo: No Recent Hopitalizations: No (LINDA URIBE MED STUDENT) Immunizations Up To Date Tetanus Booster (TDap): Unknown PED Vaccines UTD: No Date of Pneumonia Vaccine: Aug 15, 2019 Date of Influenza Vaccine: Aug 15, 2019 (LINDA URIBE MED STUDENT) Seasonal Allergies Seasonal Allergies: No (LINDA URIBE MED STUDENT) Past Medical History Surgeries: Yes (gastric bypass, pilondial cyst, ) Respiratory: Yes Sleep Apnea, COPD, Emphysema Currently Using CPAP: Yes Currently Using BIPAP: No Cardiac: Yes High Cholesterol, Hypertension Neurological: No Sexually Transmitted Disease: No HIV/AIDS: No Genitourinary: No Gastrointestinal: Yes Gastroesophageal Reflux, Chronic Constipation Musculoskeletal: Yes Arthritis Endocrine: Yes Diabetes, Non-Insulin dep HEENT: Yes (GLASSES, DENTURES) Loss of Vision: Denies Hearing Impairment: Denies Cancer: No Psychosocial: No Depression Integumentary: No Blood Disorders: No Adverse Reaction/Blood Tranf: No (N/A) (LINDA URIBE MED STUDENT) Family Medical History Dementia 19 FATHER, FH: pulmonary embolism Myocardial infarction G8 BROTHER, Cancer, Psychiatric Problems (URIBE,LINDA,MED STUDENT) Physical Exam Vital Signs Vital Signs - First Documented 06/17/20 08:40 Temp 36.2 Pulse 86 Resp 20 B/P (MAP) 170/79 (109) Pulse Ox 94 O2 Delivery Room Air (JYOTI HAUSER MD) Vital Signs Capillary Refill : Less Than 3 Seconds (LINDA URIBE,MED STUDENT) Height/Weight/BMI Height: 5'11.00" Weight: 259lbs. 0.0oz. [id number]; 38.00 BMI Method: General Appearance: WD/WN, no apparent distress HEENT: PERRL/EOMI Neck: normal inspection Respiratory: no respiratory distress, decreased breath sounds, wheezing (RUQ) Cardiovascular: regular rate, rhythm, no murmur Gastrointestinal: soft, tenderness (worse in RUQ) Extremities: non-tender, normal inspection Back: no CVA tenderness Neurologic/Psychiatric: no motor/sensory deficits, alert, normal mood/affect, oriented x 3 Skin: normal color, warm/dry (LINDA URIBE,MED STUDENT) Progress/Results/Core Measures Results/Orders Lab Results Laboratory Tests Test 06/17/20 08:47 06/17/20 10:25 Range/Units White Blood Count 11.7 H 4.3-11.0 10^3/uL Red Blood Count 5.66 4.35-5.85 10^6/uL Hemoglobin 13.0 L 13.3-17.7 G/DL Hematocrit 41 40-54 % Mean Corpuscular Volume 72 L 80-99 FL Mean Corpuscular Hemoglobin 23 L 25-34 PG Mean Corpuscular Hemoglobin Concent 32 32-36 G/DL Red Cell Distribution Width 20.0 H 10.0-14.5 % Platelet Count 355 130-400 10^3/uL Mean Platelet Volume 9.1 7.4-10.4 FL Neutrophils (%) (Auto) 82 H 42-75 % Lymphocytes (%) (Auto) 7 L 12-44 % Monocytes (%) (Auto) 12 0-12 % Eosinophils (%) (Auto) 0 0-10 % Basophils (%) (Auto) 0 0-10 % Neutrophils # (Auto) 9.6 H 1.8-7.8 X 10^3 Lymphocytes # (Auto) 0.8 L 1.0-4.0 X 10^3 Monocytes # (Auto) 1.4 H 0.0-1.0 X 10^3 Eosinophils # (Auto) 0.0 0.0-0.3 10^3/uL Basophils # (Auto) 0.0 0.0-0.1 10^3/uL Neutrophils % (Manual) 75 % Lymphocytes % (Manual) 10 % Monocytes % (Manual) 13 % Eosinophils % (Manual) 0 % Basophils % (Manual) 1 % Band Neutrophils 1 % Anisocytosis SLIGHT Microcytosis SLIGHT Elliptocytes SLIGHT Sodium Level 136 135-145 MMOL/L Potassium Level 4.1 3.6-5.0 MMOL/L Chloride Level 102 98-107 MMOL/L Carbon Dioxide Level 23 21-32 MMOL/L Anion Gap 11 5-14 MMOL/L Blood Urea Nitrogen 16 7-18 MG/DL Creatinine 0.97 0.60-1.30 MG/DL Estimat Glomerular Filtration Rate > 60 BUN/Creatinine Ratio 16 Glucose Level 162 H 70-105 MG/DL Calcium Level 9.0 8.5-10.1 MG/DL Corrected Calcium 8.8 8.5-10.1 MG/DL Total Bilirubin 0.9 0.1-1.0 MG/DL Aspartate Amino Transf (AST/SGOT) 18 5-34 U/L Alanine Aminotransferase (ALT/SGPT) 17 0-55 U/L Alkaline Phosphatase 44 40-136 U/L C-Reactive Protein High Sensitivity 2.73 H 0.00-0.50 MG/DL Total Protein 7.6 6.4-8.2 GM/DL Albumin 4.2 3.2-4.5 GM/DL Lipase 8 8-78 U/L Urine Color YELLOW Urine Clarity CLEAR Urine pH 6.0 5-9 Urine Specific [place] 1.025 H 1.016-1.022 Urine Protein NEGATIVE NEGATIVE Urine Glucose (UA) NEGATIVE NEGATIVE Urine Ketones NEGATIVE NEGATIVE Urine Nitrite NEGATIVE NEGATIVE Urine Bilirubin NEGATIVE NEGATIVE Urine Urobilinogen 2.0 < = 1.0 MG/DL Urine Leukocyte Esterase NEGATIVE NEGATIVE Urine RBC (Auto) 2+ H NEGATIVE Urine RBC 0-2 /HPF Urine WBC NONE /HPF Urine Crystals NONE /LPF Urine Bacteria NEGATIVE /HPF Urine Casts NONE /LPF Urine Mucus NEGATIVE /LPF Urine Culture Indicated NO (JYOTI HAUSER MD) My Orders Orders - JYOTI HAUSER MD Ed Iv/Invasive Line Start (06/17/20 08:59) Cbc With Automated Diff (06/17/20 08:59) Comprehensive Metabolic Panel (06/17/20 08:59) Hs C Reactive Protein (06/17/20 08:59) Lipase (06/17/20 08:59) Ua Culture If Indicated (06/17/20 08:59) Manual Differential (06/17/20 08:47) Ct Abdomen/Pelvis W (06/17/20 11:01) Iohexol Injection (Omnipaque 350 Mg/Ml 1 (06/17/20 11:45) Received Contrast (Hold Metformin- Contr (06/17/20 11:45) Ns (Ivpb) (Sodium Chloride 0.9% Ivpb Bag (06/17/20 11:45) Piperacillin Sodium/Tazobactam (Zosyn Vi (06/17/20 12:45) (JYOTI HAUSER MD) Medications Given in ED Current Medications Medications Dose Ordered Sig/Nicolas Route Start Time Stop Time Status Last Admin Dose Admin Iohexol 100 ml ONCE ONCE IV 06/17/20 11:45 06/17/20 11:46 DC 06/17/20 11:41 100 ML Sodium Chloride 100 ml ONCE ONCE IV 06/17/20 11:45 06/17/20 11:46 DC 06/17/20 11:41 80 ML (JYOTI HAUSER MD) Vital Signs/I&O 06/17/20 08:40 Temp 36.2 Pulse 86 Resp 20 B/P (MAP) 170/79 (109) Pulse Ox 94 O2 Delivery Room Air (JYOTI HAUSER MD) Blood Pressure Mean: 109 Progress Progress Note : Time: 11:02 Progress Note Patient's WBC count was mildly elevated at 11.7 and CRP elevated to 2.73. His U/A did not show RBCs, but he is complaining of increased right flank pain and notes that when he was leaving his urine sample, he had tenderness in his right testicle. We will do a CT to assess for gallbladder pathology. (LINDA URIBE,MED STUDENT) Diagnostic Imaging Diagonstic Imaging: CT Plain Films/CT/US/NM/MRI: abdomen, pelvis Comments CT viewed by me and report reviewed. See report below: NAME: GERMAN RAMIREZ [facility] REC#: [id number] PT STATUS: REG ER : 1950 PHYSICIAN: JYOTI HAUSER MD ADMIT DATE: 06/17/20/ER Signed Date of Exam:06/17/20 CT ABDOMEN/PELVIS W PROCEDURE: CT abdomen and pelvis with contrast. TECHNIQUE: Multiple contiguous axial images were obtained through the abdomen and pelvis after administration of intravenous contrast. Auto Exposure Controls were utilized during the CT exam to meet ALARA standards for radiation dose reduction. INDICATION: Right upper quadrant pain with elevated white count. FINDINGS: The lung bases are clear. Gallbladder is distended. There is thickening of the gallbladder wall. There are gallstones present. Bile ducts are not dilated. Liver appears normal. Pancreas is normal. Spleen is normal. The adrenal glands are normal. The kidneys appear normal. There is good enhancement of the abdominal organs and vessels following IV contrast. The appendix is not dilated. No periappendiceal edema. There are surgical changes in the stomach. Small bowel is not dilated. Colon shows moderate amount of stool throughout without obstruction. There is diverticulosis of the sigmoid colon. The prostate is enlarged. The bladder appears normal. No intra-abdominal adenopathy of pathologic size. No free air or free fluid. There is a right inguinal hernia without evidence of incarcerated bowel. IMPRESSION: 1. Findings are consistent with cholecystitis with distended gallbladder with thickened wall and gallstones. Bile ducts not dilated. 2. Surgical changes from previous gastric bypass. 3. Appendix is normal. 4. There is diverticulosis without evidence of diverticulitis. Dictated by: Dictated on workstation # [id number] Dict: 06/17/20 1208 Trans: 06/17/20 1229 [facility] [id number] Interpreted by: HARPER SNIDER MD Electronically signed by: HARPER SNIDER MD 06/17/20 1229 (JYOTI HAUSER MD) Departure Communication (Admissions) Time/Spoke to Admitting Phy: 12:30 Dr. Healy (JYOTI HAUSER MD) Impression Primary Impression: Acute cholecystitis Disposition: ADMITTED INPATIENT Condition: Stable Admissions Decision to Admit Reason: Admit from ER (General) Decision to Admit/Date: Jun 17, 2020 Time/Decision to Admit Time: 12:15 (JYOTI HAUSER MD) Departure-Patient Inst. Referrals: [facility] (PCP) Primary Care Physician GERMAN BUSTILLO (Family) Primary Care Physician Medical student attestation I have personally interviewed and examined this patient along with Linda Uribe, MS 4. I agree with MS 4 documentation including history, physical, and assessments except where otherwise noted. This patient has symptoms consistent with cholecystitis with right upper quadrant pain radiating to the shoulder blade. This started after eating peanut butter last night. He is afebrile but has some mild leukocytosis. CT of the abdomen and pelvis with contrast revealed a thickened gallbladder wall with stones in the neck and dilated gallbladder. Case was reviewed with Dr. Healy who requested initiation of antibiotics in preparation of surgery tomorrow. Patient's pain was treated with fentanyl. Zosyn was used for initial antibiotic therapy. Exam: Gen.: Alert, oriented, no acute distress, obese HEENT: Normocephalic and atraumatic Heart: Regular rate and rhythm without murmur Lungs: Clear to auscultation with normal effort Abdomen: soft, obese, tender in the right upper quadrant, normal bowel sounds Neuro/psych: Alert, oriented, no focal deficits Extremities: Normal to inspection (JYOTI HAUSER MD) LINDA URIBE,MED STUDENT Jun 17, 2020 09:27 JYOTI HAUSER MD Jun 17, 2020 12:44
[2020-06-17 09:28] LABS: CARBON DIOXIDE 23 MMOL/L (21-32)
[2020-06-17 09:29] LABS: BILIRUBIN,TOTAL 0.9 MG/DL (0.1-1.0)
[2020-06-17 09:30] LABS: ALKALINE PHOSPHATASE 44 U/L (40-136)
[2020-06-17 09:31] LABS: CREATININE SERUM 0.97 MG/DL (0.60-1.30); GFR ESTIMATED > 60
[2020-06-17 09:32] LABS: BUN/CREATININE RATIO 16
[2020-06-17 09:33] LABS: ALANINE AMINOTRANSFERASE 17 U/L (0-55)
[2020-06-17 09:34] LABS: LIPASE 8 U/L (8-78)
[2020-06-17 09:47] LABS: ANISOCYTOSIS SLIGHT; BAND NEUTROPHILS 1 %; BASOPHILS % (MANUAL) 1 %; ELLIPT/OVALOCYTES SLIGHT; EOSINOPHILS % (MANUAL) 0 %; LYMPHOCYTES % (MANUAL) 10 %; MICROCYTOSIS SLIGHT; MONOCYTES % (MANUAL) 13 %; NEUTROPHILS % (MANUAL) 75 %
[2020-06-17 10:48] LABS: BILIRUBIN,URINE NEGATIVE (NEGATIVE); CLARITY,URINE CLEAR; COLOR,URINE YELLOW; GLUCOSE, URINE (UA) NEGATIVE (NEGATIVE); KETONES,URINE NEGATIVE (NEGATIVE); LEUKOCYTE ESTERASE ,URINE NEGATIVE (NEGATIVE); NITRITE,URINE NEGATIVE (NEGATIVE); PROTEIN,URINE NEGATIVE (NEGATIVE)
[2020-06-17 10:56] LABS: BACTERIA,URINE NEGATIVE /HPF; RBC,URINE 0-2 /HPF
[2020-06-17] MEDS: HOLD METFORMIN - RECEIVED CONTRAST 20 ML VIAL IV SCH ×2 (11:41→14:48)
[2020-06-17] MEDS ORDERED: IOHEXOL 350 MG/ML 100 ML (OMNIPAQUE 350) VIAL IV ONE (11:45)
[2020-06-17] MEDS ORDERED: NS 100 ML (IVPB) BAG IV ONE (11:45)
--- NOTE | 2020-06-17 12:18 | Diagnostic Imaging Report ---
PROCEDURE: CT abdomen and pelvis with contrast. TECHNIQUE: Multiple contiguous axial images were obtained through the abdomen and pelvis after administration of intravenous contrast. Auto Exposure Controls were utilized during the CT exam to meet ALARA standards for radiation dose reduction. INDICATION: Right upper quadrant pain with elevated white count. FINDINGS: The lung bases are clear. Gallbladder is distended. There is thickening of the gallbladder wall. There are gallstones present. Bile ducts are not dilated. Liver appears normal. Pancreas is normal. Spleen is normal. The adrenal glands are normal. The kidneys appear normal. There is good enhancement of the abdominal organs and vessels following IV contrast. The appendix is not dilated. No periappendiceal edema. There are surgical changes in the stomach. Small bowel is not dilated. Colon shows moderate amount of stool throughout without obstruction. There is diverticulosis of the sigmoid colon. The prostate is enlarged. The bladder appears normal. No intra-abdominal adenopathy of pathologic size. No free air or free fluid. There is a right inguinal hernia without evidence of incarcerated bowel. IMPRESSION: 1. Findings are consistent with cholecystitis with distended gallbladder with thickened wall and gallstones. Bile ducts not dilated. 2. Surgical changes from previous gastric bypass. 3. Appendix is normal. 4. There is diverticulosis without evidence of diverticulitis. Dictated by: Dictated on workstation # [id number]
[2020-06-17] MEDS ORDERED: PIPERACILLIN SODIUM/TAZOBACTAM 4.5 GM in NS (IVPB) 100 ML IV ONE (12:45)
--- NOTE | 2020-06-17 13:50 | NUR ---
GERMAN RAMIREZ admitted to room 421-1, with an admitting diagnosis of abd pain, on06/17/20 from ED via , accompanied by STAFF.GERMAN RAMIREZ introduced to surroundings, call light, bed controls, phone, TV, temperature control, lights, meal times, smoking policy, visitor policy, side rail policy, bathrooms and showers. Patient Rights given to patient in the handbook. GERMAN RAMIREZ verbalizes understanding that [facility] is not responsible for the loss or damage to any personal effects or valuables that are kept in the patients posession during their hospitalization.
[2020-06-17] MEDS ORDERED: ONDANSETRON 4 MG/2 ML (SDV) Z0FRAN IV PRN (14:30)
[2020-06-17 14:54] VITALS: BP 160/82
[2020-06-17] MEDS: LACTATED RINGERS 1,000 ML IV SCH (15:05)
[2020-06-17] MEDS: fentaNYL INJECTION 100 MCG/2 ML AMP IV PRN ×2 (15:05→18:25)
--- NOTE | 2020-06-17 15:33 | NUR ---
DR REDD NOTIFIED OF PT DVT SCORE OF 7. DR ORDERED SCDS AND AMBULATION TID
--- NOTE | 2020-06-17 15:35 | NUR ---
DR REDD ALSO NOTIFIED THAT PT REPORTS TAKING A 300 MG TAB OF SEROQUEL AT HS ALONG WITH 100 MG TAB. SAID OK TO ORDER. ORDER ENTERED INTO [facility] [facility] BY THIS NURSE SUPPORT ASSOCIATE. ALSO NOTIFIED THAT THE ONLY PAIN MED ORDERED FOR PT WAS FENTANYL AND THIS RN ASKED IF HE WANTED ANY OTHER IV MED FOR MODERATE PAIN. SAID JUST FENTANYL WOULD BE OK.
[2020-06-17 16:38] VITALS: BP 138/76
[2020-06-17] MEDS: PIPERACILLIN/TAZO 4.5 GM/NS 100 ML IV SCH ×2 (18:46)
[2020-06-17 20:48] VITALS: BP 157/75
[2020-06-17] MEDS: QUEtiapine 100 MG (SEROquel) TAB IMMEDIATE RELEASE PO SCH ×2 (21:19→21:20)
[2020-06-17] MEDS: FAMOTIDINE 20MG/2ML IV (PEPCID) IV SCH (21:22)
[2020-06-17 23:20] VITALS: BP 112/66
[2020-06-18] VITALS (16 sets, daily range): BP systolic 116–163; BP diastolic 64–95
[2020-06-18] MEDS: LACTATED RINGERS 1,000 ML IV SCH ×3 (00:32→21:15)
[2020-06-18] MEDS: PIPERACILLIN/TAZO 4.5 GM/NS 100 ML IV SCH ×8 (03:04→18:34)
[2020-06-18 05:29] LABS: BASOPHILS % (AUTO) 0 % (0-10); EOSINOPHILS % (AUTO) 0 % (0-10); HEMATOCRIT 37 % (40-54); HEMOGLOBIN 12.1 G/DL (13.3-17.7); LYMPHOCYTES # (AUTO) 0.9 X 10^3 (1.0-4.0); LYMPHOCYTES % (AUTO) 6 % (12-44); MEAN CORPUSCULAR HEMOGLOBIN 23 PG (25-34); MEAN CORPUSCULAR HGB CONC 32 G/DL (32-36); MEAN CORPUSCULAR VOLUME 72 FL (80-99); MONOCYTES # (AUTO) 1.8 X 10^3 (0.0-1.0); MONOCYTES % (AUTO) 12 % (0-12); NEUTROPHILS # (AUTO) 12.9 X 10^3 (1.8-7.8); NEUTROPHILS % (AUTO) 83 % (42-75); PLATELET COUNT 284 10^3/uL (130-400); RED CELL DISTRIBUTION WIDTH 19.6 % (10.0-14.5); WHITE BLOOD COUNT 15.7 10^3/uL (4.3-11.0)
[2020-06-18 05:54] LABS: ALBUMIN 3.5 GM/DL (3.2-4.5); CHLORIDE 104 MMOL/L (98-107); POTASSIUM 3.7 MMOL/L (3.6-5.0); SODIUM 134 MMOL/L (135-145)
[2020-06-18 05:55] LABS: CALCIUM 8.4 MG/DL (8.5-10.1)
[2020-06-18 05:56] LABS: GLUCOSE 171 MG/DL (70-105); TOTAL PROTEIN 6.4 GM/DL (6.4-8.2)
[2020-06-18 05:57] LABS: CARBON DIOXIDE 21 MMOL/L (21-32)
[2020-06-18 05:58] LABS: BILIRUBIN,TOTAL 1.4 MG/DL (0.1-1.0)
[2020-06-18 06:00] LABS: ALKALINE PHOSPHATASE 34 U/L (40-136); CREATININE SERUM 0.99 MG/DL (0.60-1.30); GFR ESTIMATED > 60
[2020-06-18 06:01] LABS: BUN/CREATININE RATIO 14
[2020-06-18 06:03] LABS: ALANINE AMINOTRANSFERASE 17 U/L (0-55)
--- NOTE | 2020-06-18 07:06 | History & Physical-Surgical ---
GILLIAN TRIANA MED STUDENT 06/18/20 0705: History of Present Illness History of Present Illness Reason for visit/HPI Pt presents with R sided abdominal pain that began Thursday. Rates the pain a 7/10 and describes it as a cramping pain. Coughing makes his pain worse and laying on his R side makes the pain a little better. This has never happened before, but he has a family history of gallstones. Last solid meal was thursday around 21:00, had liquids yesterday. Had abdominal surgery in 1979. Denies nausea, vomiting, fever, chills. Date of Admission Jun 17, 2020 at 12:42 Date Seen by a Provider: Jun 18, 2020 Time Seen by a Provider: 06:45 I consulted on this patient on 06/18/20 07:00 Attending Physician Parisa Healy DO Admitting Physician [place] Consult Allergies and Home Medications Allergies Coded Allergies: No Known Drug Allergies (Unverified , 01/04/20) Home Medications Amlodipine Besylate 5 Mg Tablet, 5 MG PO DAILY, (Reported) Calcium Carbonate/Vitamin D3 1 Each Tablet, 1 EACH PO DAILY, (Reported) Desvenlafaxine Succinate 100 Mg Tab.er.24h, 100 MG PO DAILY, (Reported) Docusate Sodium 100 Mg Capsule, 100 MG PO DAILY PRN for CONSTIPATION-1ST LINE, (Reported) Fluticasone/Vilanterol 1 Each Blst.w.dev, 1 PUFF PO DAILY, (Reported) Ginkgo Biloba Extract 120 Mg Capsule, 120 MG PO HS, (Reported) Glipizide 5 Mg Tablet, 5 MG PO BID, (Reported) Hydrocodone/Acetaminophen 1 Each Tablet, 1 EA PO Q6H PRN for PAIN-MODERATE (5- 7), (Reported) Melatonin 10 Mg Capsule, 10 MG PO HS, (Reported) Metformin HCl 500 Mg Tablet, 1,000 MG PO DAILY, (Reported) TAKES 2 (500MG) TABS Metformin HCl 500 Mg Tablet, 500 MG PO HS, (Reported) Montelukast Sodium 10 Mg Tablet, 10 MG PO DAILY, (Reported) Pantoprazole Sodium 40 Mg Tablet.dr, 40 MG PO DAILY, (Reported) Polyethylene Glycol 3350 17 Gm Powd.pack, 17 GM PO DAILY PRN for CONSTIPATION- 2ND LINE, (Reported) Quetiapine Fumarate 100 Mg Tablet, 100 MG PO BID, (Reported) Quetiapine Fumarate 300 Mg Tablet, 400 MG PO HS, (Reported) TAKES 300MG +100MG AT BEDTIME Past Cazujpe-Bemezj-Tdxhrg Hx Patient Social History Alcohol Use: Denies Use Recreational Drug Use: No Smoking Status: Never a Smoker 2nd Hand Smoke Exposure: Yes Recent Foreign Travel: No Contact w/Someone Who Travel: No Recent Infectious Disease Expo: No Recent Hopitalizations: No Immunizations Up To Date Tetanus Booster (TDap): Unknown PED Vaccines UTD: No Date of Pneumonia Vaccine: Jun 17, 2019 Date of Influenza Vaccine: Aug 15, 2019 Seasonal Allergies Seasonal Allergies: No Surgeries History of Surgeries: Yes (gastric bypass, pilondial cyst, ) Respiratory History of Respiratory Disorde: Yes Respiratory Disorders: Sleep Apnea, COPD, Emphysema Cardiovascular History of Cardiac Disorders: Yes Cardiac Disorders: High Cholesterol, Hypertension Neurological History of Neurological Disord: No Reproductive System Sexually Transmitted Disease: No HIV/AIDS: No Genitourinary History of Genitourinary Disor: No Gastrointestinal History of Gastrointestinal Di: Yes Gastrointestinal Disorders: Gastroesophageal Reflux, Chronic Constipation Musculoskeletal History of Musculoskeletal Dis: Yes Musculoskeletal Disorders: Arthritis Endocrine History of Endocrine Disorders: Yes Endocrine Disorders: Diabetes, Non-Insulin dep HEENT History of HEENT Disorders: Yes (GLASSES, DENTURES) Loss of Vision: Denies Hearing Impairment: Denies Cancer History of Cancer: No Psychosocial History of Psychiatric Problem: No Behavioral Health Disorders: Depression Integumentary History of Skin or Integumenta: No Blood Transfusions History of Blood Disorders: No Adverse Reaction to a Blood Tr: No (N/A) Family Medical History Significant Family History: Cancer, Psychiatric Problems Family Medial History: Dementia 19 FATHER, FH: pulmonary embolism Myocardial infarction G8 BROTHER, Review of Systems Constitutional: No chills, No diaphoresis, No fever EENTM: No blurred vision, No double vision Respiratory: cough (copd), short of breath (copd) Cardiovascular: No chest pain, No palpitations Gastrointestinal: RUQ, RLQ, abdominal pain Genitourinary: No decreased output, No dysuria Musculoskeletal: No muscle stiffness, No muscle cramps Skin: No change in color, No change in hair/nails, No dryness, No lesions Psychiatric/Neurological: Denies Anxiety, Denies Depressed Physical Exam Vital Signs Vital Signs - First Documented 06/17/20 08:40 Temp 36.2 Pulse 86 Resp 20 B/P (MAP) 170/79 (109) Pulse Ox 94 O2 Delivery Room Air Capillary Refill : Less Than 3 Seconds Height, Weight, BMI Height: 5'11.00" Weight: 259lbs. 0.0oz. 117.327354xl; 38.65 BMI Method: General Appearance: No Apparent Distress, WD/WN, Obese Eyes: Bilateral Eye Normal Inspection HEENT: PERRL/EOMI, Normal ENT Inspection Neck: Full Range of Motion, Normal Inspection Respiratory: Chest Non Tender, No Accessory Muscle Use, No Respiratory Distress Cardiovascular: Regular Rate, Rhythm, No JVD, No Murmur Gastrointestinal: Soft, Tenderness Back: Normal Inspection, No CVA Tenderness, No Vertebral Tenderness Extremity: Normal Capillary Refill, Normal Inspection, Normal Range of Motion, Non Tender, No Calf Tenderness Neurologic/Psychiatric: Alert, Oriented x3, No Motor/Sensory Deficits Skin: Normal Color, Warm/Dry Lymphatic: No Adenopathy Data Review Labs Laboratory Tests 06/17/20 08:47: White Blood Count 11.7H, Red Blood Count 5.66, Hemoglobin 13.0L, Hematocrit 41, Mean Corpuscular Volume 72L, Mean Corpuscular Hemoglobin 23L, Mean Corpuscular Hemoglobin Concent 32, Red Cell Distribution Width 20.0H, Platelet Count 355, Mean Platelet Volume 9.1, Neutrophils (%) (Auto) 82H, Lymphocytes (%) (Auto) 7L, Monocytes (%) (Auto) 12, Eosinophils (%) (Auto) 0, Basophils (%) (Auto) 0, Neutrophils # (Auto) 9.6H, Lymphocytes # (Auto) 0.8L, Monocytes # (Auto) 1.4H, Eosinophils # (Auto) 0.0, Basophils # (Auto) 0.0, Neutrophils % (Manual) 75, Lymphocytes % (Manual) 10, Monocytes % (Manual) 13, Eosinophils % (Manual) 0, Basophils % (Manual) 1, Band Neutrophils 1, Anisocytosis SLIGHT, Microcytosis SLIGHT, Elliptocytes SLIGHT, Sodium Level 136, Potassium Level 4.1, Chloride Level 102, Carbon Dioxide Level 23, Anion Gap 11, Blood Urea Nitrogen 16, Creatinine 0.97, Estimat Glomerular Filtration Rate > 60, BUN/Creatinine Ratio 16, Glucose Level 162H, Calcium Level 9.0, Corrected Calcium 8.8, Total Bilirubin 0.9, Aspartate Amino Transf (AST/SGOT) 18, Alanine Aminotransferase (ALT/SGPT) 17, Alkaline Phosphatase 44, C-Reactive Protein High Sensitivity 2.73H, Total Protein 7.6, Albumin 4.2, Lipase 8 06/17/20 10:25: Urine Color YELLOW, Urine Clarity CLEAR, Urine pH 6.0, Urine Specific [place] 1.025H, Urine Protein NEGATIVE, Urine Glucose (UA) NEGATIVE, Urine Ketones NEGAT DIMPLE, Urine Nitrite NEGATIVE, Urine Bilirubin NEGATIVE, Urine Urobilinogen 2.0, Urine Leukocyte Esterase NEGATIVE, Urine RBC (Auto) 2+H, Urine RBC 0-2, Urine WBC NONE, Urine Crystals NONE, Urine Bacteria NEGATIVE, Urine Casts NONE, Urine Mucus NEGATIVE, Urine Culture Indicated NO 06/17/20 14:40: 06/18/20 05:17: White Blood Count 15.7H, Red Blood Count 5.17, Hemoglobin 12.1L, Hematocrit 37L, Mean Corpuscular Volume 72L, Mean Corpuscular Hemoglobin 23L, Mean Corpuscular Hemoglobin Concent 32, Red Cell Distribution Width 19.6H, Platelet Count 284, Mean Platelet Volume 9.0, Neutrophils (%) (Auto) 83H, Lymphocytes (%) (Auto) 6L, Monocytes (%) (Auto) 12, Eosinophils (%) (Auto) 0, Basophils (%) (Auto) 0, Neutrophils # (Auto) 12.9H, Lymphocytes # (Auto) 0.9L, Monocytes # (Auto) 1.8H, Eosinophils # (Auto) 0.0, Basophils # (Auto) 0.0, Sodium Level 134L, Potassium Level 3.7, Chloride Level 104, Carbon Dioxide Level 21, Anion Gap 9, Blood Urea Nitrogen 14, Creatinine 0.99, Estimat Glomerular Filtration Rate > 60, BUN/Creatinine Ratio 14, Glucose Level 171H, Calcium Level 8.4L, Corrected Serge cium 8.8, Total Bilirubin 1.4H, Aspartate Amino Transf (AST/SGOT) 17, Alanine Aminotransferase (ALT/SGPT) 17, Alkaline Phosphatase 34L, Total Protein 6.4, Albumin 3.5 Assessment/Plan Assessment/Plan Admission Diagonsis Acute Cholecystitis Admission Status: Inpatient Order (span 2 midnights) Assessment/Plan Acute cholecystitis Lap cholecystectomy NPO until post-op Clinical Quality Measures DVT/VTE Risk/Contraindication: Risk Factor Score Per Nursin RFS Level Per Nursing on Admit: 4+=Very High PARISA HEALY DO 06/18/20 1025: History of Present Illness History of Present Illness Reason for visit/HPI CC: ruq abdominal pain. Patient is a 70 year old male with ruq abdominal pain that began last Thursday. States pain is cramping and rates at 7/10. Coughing and eating makes pain worse. Laying on right side maybe makes better. No radiation of pain. History of gastric weight loss procedure. Has had some nausea no emesis. Denies fever sweats chills shortness of breath or chest pain. Ct scan demonstrates dilated gallbladder and stones with findings suggestive of cholecystitis. NPO Allergies and Home Medications Allergies Coded Allergies: No Known Drug Allergies (Unverified , 01/04/20) Home Medications Amlodipine Besylate 5 Mg Tablet, 5 MG PO DAILY, (Reported) Calcium Carbonate/Vitamin D3 1 Each Tablet, 1 EACH PO DAILY, (Reported) Desvenlafaxine Succinate 100 Mg Tab.er.24h, 100 MG PO DAILY, (Reported) Docusate Sodium 100 Mg Capsule, 100 MG PO DAILY PRN for CONSTIPATION-1ST LINE, (Reported) Fluticasone/Vilanterol 1 Each Blst.w.dev, 1 PUFF PO DAILY, (Reported) Ginkgo Biloba Extract 120 Mg Capsule, 120 MG PO HS, (Reported) Glipizide 5 Mg Tablet, 5 MG PO BID, (Reported) Hydrocodone/Acetaminophen 1 Each Tablet, 1 EA PO Q6H PRN for PAIN-MODERATE (5- 7), (Reported) Melatonin 10 Mg Capsule, 10 MG PO HS, (Reported) Metformin HCl 500 Mg Tablet, 1,000 MG PO DAILY, (Reported) TAKES 2 (500MG) TABS Metformin HCl 500 Mg Tablet, 500 MG PO HS, (Reported) Montelukast Sodium 10 Mg Tablet, 10 MG PO DAILY, (Reported) Pantoprazole Sodium 40 Mg Tablet.dr, 40 MG PO DAILY, (Reported) Polyethylene Glycol 3350 17 Gm Powd.pack, 17 GM PO DAILY PRN for CONSTIPATION- 2ND LINE, (Reported) Quetiapine Fumarate 100 Mg Tablet, 100 MG PO BID, (Reported) Quetiapine Fumarate 300 Mg Tablet, 400 MG PO HS, (Reported) TAKES 300MG +100MG AT BEDTIME Patient Home Medication List Home Medication List Reviewed: Yes Past Qgnwlmf-Tveezv-Kurfzb Hx Reviewed Nursing Assessment Reviewed/Agree w Nursing PMH: Yes Family Medical History Significant Family History: No Pertinent Family Hx Family Medial History: Dementia 19 FATHER, FH: pulmonary embolism Myocardial infarction G8 BROTHER, Review of Systems Constitutional: No chills, No diaphoresis, No fever EENTM: No blurred vision, No double vision Respiratory: cough (copd), short of breath (copd) Gastrointestinal: RUQ, abdominal pain (RUQ), nausea; No vomiting Genitourinary: No decreased output, No dysuria Musculoskeletal: No muscle stiffness, No muscle cramps Skin: No change in color, No change in hair/nails Psychiatric/Neurological: Denies Anxiety, Denies Depressed All Other Systems Reviewed Negative Unless Noted: Yes (Negative excepted noted.) Physical Exam General Appearance: No Apparent Distress, WD/WN HEENT: PERRL/EOMI, Normal ENT Inspection Neck: Full Range of Motion, Normal Inspection Respiratory: Chest Non Tender, No Accessory Muscle Use, No Respiratory Distress Cardiovascular: Regular Rate, Rhythm Gastrointestinal: Soft, Tenderness (ruq) Rectal: Deferred Back: No CVA Tenderness, No Vertebral Tenderness Extremity: Normal Inspection, Non Tender, No Calf Tenderness Neurologic/Psychiatric: Alert, Oriented x3, No Motor/Sensory Deficits Skin: Normal Color, Warm/Dry Lymphatic: No Adenopathy Assessment/Plan Assessment/Plan Admission Status: Observation Assessment/Plan acute cholecystitis ruq abdominal pain patient explained risks and benfits of laparoscopic cholecystectomy and ioc all other indicated procedures he and understand and wish to proceed continue Zosyn for ABX NPO To or today Supervisory-Addendum Brief Verification & Attestation Participated in pt care: history, MDM, physical Personally performed: exam, history, MDM, supervision of care Care discussed with: Medical Student Procedures: n/a Results interpretation: Verified all documentation Verification and Attestation of Medical Student E/M Service A medical student performed and documented this service in my presence. I reviewed and verified all information documented by the medical student and made modifications to such information, when appropriate. I personally performed the physical exam and medical decision making. Parisa Healy, Jun 18, 2020,08:47 GILLIAN TRIANA MED STUDENT Jun 18, 2020 07:05 PARISA HEALY DO Jun 18, 2020 10:25
[2020-06-18] MEDS ORDERED: ROCURONIUM 10 MG/ML 5 ML SYRINGE IV ONE ×2 (07:10→13:32)
[2020-06-18] MEDS ORDERED: MIDAZOLAM 2 MG/2 ML (VERSED) VIAL ONE (07:10)
[2020-06-18] MEDS ORDERED: proPOfol 200 MG/20 ML (DIPRIVAN) VIAL IV ONE (07:10)
[2020-06-18] MEDS ORDERED: ONDANSETRON 4 MG/2 ML (SDV) Z0FRAN ONE (07:10)
[2020-06-18] MEDS ORDERED: LIDOCAINE PF 2% 5 ML (XYLOCAINE) VIAL ONE (07:10)
[2020-06-18] MEDS ORDERED: fentaNYL INJECTION 100 MCG/2 ML AMP ONE (07:10)
[2020-06-18] MEDS ORDERED: SEVOFLURANE (ULTANE) 15 ML INHAL SOLN ONE ×10 (07:19→14:51)
[2020-06-18] MEDS: FAMOTIDINE 20MG/2ML IV (PEPCID) IV SCH ×2 (09:12→21:16)
[2020-06-18] MEDS ORDERED: FLUT1BLS PO (10:00)
[2020-06-18] MEDS ORDERED: METF-397 PO (10:00)
[2020-06-18] MEDS ORDERED: POLY17PO6 PO (10:01)
[2020-06-18] MEDS ORDERED: CALC-880 PO (10:01)
[2020-06-18] MEDS ORDERED: BUP/EPI 0.5% 1:200,000 (MARCAINE) 10ML VIAL IJ ONE (10:02)
[2020-06-18] MEDS ORDERED: MONT10TA26 PO (10:03)
[2020-06-18] MEDS ORDERED: HYDR-3812 PO (10:03)
--- NOTE | 2020-06-18 10:56 | NUR ---
SPOKE WITH THE PT AND WENT THRU THE EXT MED HISTORY TO COMPLETE THE MED REC PT DID NOT REMEMBER THE NAMES OF ALL HIS MEDS BUT IF I SAID THE NAME (GOING OFF THE EXT MED HISTORY) PT WAS ABLE TO TELL ME HOW/WHEN HE TAKES EACH. OTC MEDS: CALCIUM W/ VIT D MELATONIN STOOL SOFTENER MIRALAX GINGKO BILOBA
--- NOTE | 2020-06-18 11:45 | NUR ---
patient to surgery at this time. This RN will cont. to monitor this patient when he arrives back to this floor.
[2020-06-18] MEDS ORDERED: LACTATED RINGERS 1,000 ML IV PRN (12:03)
[2020-06-18] MEDS ORDERED: SUCCINYLCHOLINE INJ 100 MG/5 ML SYR ONE (12:33)
[2020-06-18] MEDS ORDERED: HYDROmorphone 2 MG/ML VIAL (DILAUDID) ONE (12:48)
--- NOTE | 2020-06-18 14:09 | Diagnostic Imaging Report ---
INDICATION: Fluoroscopy during an intraoperative cholangiogram. Fluoroscopy was provided in the OR during intraoperative cholangiogram. 27 seconds of fluoroscopic time utilized. Images demonstrate contrast being injected via the cystic duct remnant. Contrast appears to pass into the duodenum. No definite filling defects are seen. IMPRESSION: Fluoroscopy during intraoperative cholangiogram. Dictated by: Dictated on workstation # [id number]
[2020-06-18] MEDS ORDERED: morphine INJ 10 MG/ML 1ML (SYR OR VIAL) IVP ONE (14:15)
[2020-06-18] MEDS ORDERED: ONDANSETRON 4 MG/2 ML (SDV) Z0FRAN IVP PRN (14:15)
[2020-06-18] MEDS ORDERED: NEOSTIGMINE 3 MG/3 ML VIAL ONE (14:17)
[2020-06-18] MEDS ORDERED: GLYCOPYRROLATE 0.2 MG/ML (ROBINUL) 2 ML VIAL ONE (14:17)
[2020-06-18] MEDS ORDERED: IOPAMIDOL 61% 30 ML (ISOVUE 300) VIAL ONE (14:48)
[2020-06-18] MEDS ORDERED: HYDROmorphone 2 MG/ML VIAL (DILAUDID) IV ONE (15:00)
--- NOTE | 2020-06-18 16:00 | NUR ---
patient back to floor at this time via cart accompanied by ROOSEVELT Fisher from PACU
--- NOTE | 2020-06-18 20:43 | Progress Note-Post Operative ---
Post-Operative Progess Note Surgeon (s)/Trim Operator (s) Surgeon PARISA REDD DO Trim Operator: Dr. Quintero to assist in retraction dissection and closure Pre-Operative Diagnosis acute cholecystitis cholelithiasis Post-Operative Diagnosis acute cholecystitis cholelithiasis Procedure & Operative Findings Date of Procedure 06/18/20 Procedure Performed/Findings PROCEDURE: Laparoscopic cholecystectomy with intraoperative cholangiogram. COMPLICATIONS: None. PROCEDURE: The patient was taken to the operating suite and was prepped and draped in sterile fashion. A surgical pause was performed. In left upper quadrant, a 12 mm incision was made. Dissection was taken down to the fascia, which muscle bluntly divided and abdomen was entered. A Vasquez trocar was placed and secured. Pneumoperitoneum was achieved. Adhesions at midline present and under visualization a 12 mm trocar placed at umbilicus and tiny umbilical hernia is noted. A 5mm trochar place in the subxyphoid and 2 in the right upper quadrant. The gallbladder was inflamed and distended. There was ascitic appearing fluid throughout the abddomen. The gallbladder was grasped and in punctured wall and clear and purulent fluid erupted from the gallbladder. It was then grasped and elevated. There was significant phlegmon around the gallbladder and it was able to be bluntly taken down. The cystic duct, and cystic artery were then dissected out. Clip was placed on the distal portion of the cystic duct which was then partially transected. An arrow catheter was inserted into the duct. The cholangiogram was then performed. No filing defects ducts were dilate and contrast made its way into the duodenum. Catheter removed. Clips were placed on proximal portion of the cystic duct and then the duct was then transected. Since dilated a endoloop was also placed around the cystic duct. Clips were placed along the proximal and distal portion of the cystic artery which was then transected. Hook cautery was used to dissect the gallbladder from the gallbladder fossa achieving hemostasis. The gallbladder was placed in an Endobag and removed through the 12 mm trocar site. The abdomen was then reinspected. Copious amounts of irrigation were used to irrigate the abdomen and there were no signs of active bleeding. Hemostasis had been achieved. A [address] in the gallbladder fossa and aishwarya out through a 5 mm trocar site. The 12 mm fascial defect was then closed with 0 Vicryl suture. The abdomen was then desufflated, the trocars were removed. The fascia of 12 mm trocar in left upper quadrant was close with 0 Vicryl suture. The abdomen was then washed and dried. The skin was then closed using 4-0 Monocryl in a subcuticular fashion. The abdomen was washed and dried and Skin Affix was place over incisions. Patient tolerated the procedure well without any complications and was taken to the recovery room in stable condition. Anesthesia Type general Estimated Blood Loss Estimated blood loss (mL): minimal Specimens/Packing Specimens Removed gallbladder PARISA REDD DO Jun 18, 2020 20:43
[2020-06-18] MEDS: QUEtiapine 100 MG (SEROquel) TAB IMMEDIATE RELEASE PO SCH ×2 (21:16)
[2020-06-18] MEDS ORDERED: RT-ALBUTEROL SULF 2.5 MG/3 ML PRE-MIX VIAL INH PRN (23:30)
[2020-06-19] VITALS (7 sets, daily range): BP systolic 104–122; BP diastolic 70–82
[2020-06-19] MEDS: LACTATED RINGERS 1,000 ML IV SCH ×2 (03:07→16:46)
[2020-06-19] MEDS: PIPERACILLIN/TAZO 4.5 GM/NS 100 ML IV SCH ×6 (04:04→18:13)
[2020-06-19 05:11] LABS: HEMOGLOBIN 11.3 G/DL (13.3-17.7); MEAN PLATELET VOLUME 9.1 FL (7.4-10.4); RED CELL DISTRIBUTION WIDTH 18.8 % (10.0-14.5); WHITE BLOOD COUNT 9.9 10^3/uL (4.3-11.0)
[2020-06-19 05:24] LABS: CHLORIDE 103 MMOL/L (98-107); POTASSIUM 4.2 MMOL/L (3.6-5.0); SODIUM 136 MMOL/L (135-145)
[2020-06-19 05:25] LABS: CALCIUM 8.3 MG/DL (8.5-10.1)
[2020-06-19 05:26] LABS: GLUCOSE 186 MG/DL (70-105); TOTAL PROTEIN 5.9 GM/DL (6.4-8.2)
[2020-06-19 05:27] LABS: CARBON DIOXIDE 26 MMOL/L (21-32)
[2020-06-19 05:28] LABS: BILIRUBIN,TOTAL 1.2 MG/DL (0.1-1.0)
[2020-06-19 05:29] LABS: ALKALINE PHOSPHATASE 30 U/L (40-136)
[2020-06-19 05:30] LABS: CREATININE SERUM 1.11 MG/DL (0.60-1.30); GFR ESTIMATED > 60
[2020-06-19 05:31] LABS: BUN/CREATININE RATIO 14
[2020-06-19 05:33] LABS: ALANINE AMINOTRANSFERASE 38 U/L (0-55)
--- NOTE | 2020-06-19 06:54 | Anesthesia-General Post-Op ---
General Patient Condition Mental Status/LOC: Same as Preop Cardiovascular: Satisfactory Nausea/Vomiting: Absent Respiratory: Satisfactory Pain: Controlled Complications: Absent Post Op Complications Complications None Follow Up Care/Instructions Patient Instructions None needed. Anesthesia/Patient Condition Patient Condition Patient is doing well, no complaints, stable vital signs, no apparent adverse anesthesia problems. No complications reported per nursing. [place] [facility] [place] Yes GILLIAN RUIZ CRNA Jun 19, 2020 06:54
[2020-06-19] MEDS ORDERED: RT-ALBUTEROL SULF 2.5 MG/3 ML PRE-MIX VIAL INH SCH (08:00)
[2020-06-19] MEDS: FAMOTIDINE 20MG/2ML IV (PEPCID) IV SCH ×2 (09:54→21:25)
[2020-06-19] MEDS ORDERED: RT-ALBUTEROL SULF 2.5 MG/3 ML PRE-MIX VIAL INH PRN (12:00)
[2020-06-19] MEDS: RT-ALBUTEROL SULF 2.5 MG/3 ML PRE-MIX VIAL INH SCH ×3 (14:18→22:28)
--- NOTE | 2020-06-19 15:06 | NUR ---
RD ASSESSMENT PMHx: COPD; emphysema; hypercholesterolemia; HTN; GERD; chronic constipation; DM PT INTERACTION: Pt was awake and pleasant during nutrition assessment. Pt states current appetite is good. Note avg PO intake 50% x1d, per chart review. Pt states following a regular diet at home, and has no issues with chewing/swallowing food. Pt states no recent issues with nausea or vomiting. Pt states some recent issues with constipation, and that his last BM was 8/7. Note pt not currently on bowel regimen per chart review. Pt states no recent wt changes. Note unable to determine recent wt hx, per chart review. Pt states current DM management is "so-so." Note unable to determine recent HbA1c, per chart review. ABNORMAL NUTRITION-RELATED LAB VALUES LOW: Ca 8.3; alkphos 30; Pro 5.9; alb 3.0 HIGH: glu 186; bili 1.2 Est. kcal needs: 1825 kcal | 15 kcal/kg Est. Pro needs: 98 g Pro | 0.8 g Pro/kg PES STATEMENT: Inadequate oral intake (NI-2.1) related to constipation as evidenced by pt interview | avg PO intake 50% x1d INTERVENTION: Continue with current diet order of CHO 60g/m 0snack diet. Pt may benefit from nutrition supplementation if PO intake declines. Offered diet education on DM management, but pt declined at this time. Will attempt to offer again prior to discharge. Will continue to follow and reassess as pt needs, intake, and status change. MONITOR/EVALUATE: PO Intake; Plan of Care; Hydration Status; Weight Status; Lab Values Lay Guerra, MS, RD, LD
--- NOTE | 2020-06-19 19:41 | Progress Note - Surgery ---
Subjective Date Seen by a Provider: Jun 19, 2020 Time Seen by a Provider: 19:37 Subjective/Events-last exam Patient sitting in chair. at bedside. Feeling better. Tolerating clears. Pain controlled. Not using IS. Breathing improving. Denies n/v feve sweats chills shortness of breath or chest pain. Labs improving. Objective Exam Vital Signs Date Time Temp Pulse Resp B/P (MAP) Pulse Ox O2 Delivery O2 Flow Rate FiO2 06/19/20 18:29 98 Nasal Cannula 4.00 06/19/20 16:00 36.7 92 20 121/70 (87) 91 NIV CPAP 06/19/20 14:19 92 Nasal Cannula 3.00 06/19/20 12:00 36.6 103 20 122/70 (87) 91 Nasal Cannula 06/19/20 10:40 36.0 102 94 32 06/19/20 08:00 36.0 89 18 119/78 (92) 94 NIV CPAP 7.00 06/19/20 08:00 3.00 06/19/20 07:40 92 Nasal Cannula 3.00 06/19/20 04:00 36.5 98 20 118/76 (90) 98 NIV CPAP 7.00 06/19/20 00:00 36.7 91 21 104/70 (81) 95 NIV CPAP 7.00 06/18/20 23:19 95 NIV CPAP 7.00 06/18/20 23:05 36.7 105 77 06/18/20 20:00 NIV CPAP 6.00 06/18/20 19:39 37.1 105 20 135/77 (96) 95 NIV CPAP 7.00 I & O 06/19/20 07:00 Intake Total 1460 ml Output Total 1005 ml Balance 455 ml Capillary Refill : Less Than 3 SecondsLess Than 3 Seconds General Appearance: No Apparent Distress, WD/WN HEENT: PERRL/EOMI, Normal ENT Inspection Neck: Full Range of Motion, Normal Inspection Respiratory: Chest Non Tender, No Accessory Muscle Use, No Respiratory Distress Cardiovascular: Regular Rate, Rhythm Gastrointestinal: soft, tenderness (RUQ, incisions c/d/i), other (drain serosang) Extremity: Normal Inspection, Non Tender, No Calf Tenderness Neurologic/Psychiatric: Alert, Oriented x3, No Motor/Sensory Deficits Skin: Normal Color, Warm/Dry Lymphatic: No Adenopathy Results Lab Laboratory Tests 06/19/20 04:51: White Blood Count 9.9, Red Blood Count 4.89, Hemoglobin 11.3L, Hematocrit 36L, Mean Corpuscular Volume 73L, Mean Corpuscular Hemoglobin 23L, Mean Corpuscular Hemoglobin Concent 32, Red Cell Distribution Width 18.8H, Platelet Count 243, Mean Platelet Volume 9.1, Sodium Level 136, Potassium Level 4.2, Chloride Level 103, Carbon Dioxide Level 26, Anion Gap 7, Blood Urea Nitrogen 15, Creatinine 1.11, Estimat Glomerular Filtration Rate > 60, BUN/Creatinine Ratio 14, Glucose Level 186H, Calcium Level 8.3L, Corrected Calcium 9.1, Total Bilirubin 1.2H, Aspartate Amino Transf (AST/SGOT) 30, Alanine Aminotransferase (ALT/SGPT) 38, Alkaline Phosphatase 30L, Total Protein 5.9L, Albumin 3.0L Microbiology 06/17/20 MRSA Screen - Final, Complete MRSA not isolated Assessment/Plan Assessment/Plan Assessment/Plan acute cholecystitis ruq abdominal pain s/p lap mckenna c ioc conitnue abx increase activity IS mohinder drain to bulb suction scd's for dvt prophylaxis repeat labs in am Clinical Quality Measures DVT/VTE Risk/Contraindication: Risk Factor Score Per Nursin RFS Level Per Nursing on Admit: 4+=Very High PARISA REDD DO Jun 19, 2020 19:41
[2020-06-19] MEDS: QUEtiapine 100 MG (SEROquel) TAB IMMEDIATE RELEASE PO SCH ×2 (21:25)
[2020-06-20] VITALS: BP 115/76
[2020-06-20] MEDS: PIPERACILLIN/TAZO 4.5 GM/NS 100 ML IV SCH ×4 (03:25→11:44)
[2020-06-20] MEDS: RT-ALBUTEROL SULF 2.5 MG/3 ML PRE-MIX VIAL INH SCH ×3 (03:31→10:15)
[2020-06-20 04:00] VITALS: BP 129/82
[2020-06-20 05:27] LABS: HEMOGLOBIN 10.6 G/DL (13.3-17.7); MEAN PLATELET VOLUME 9.1 FL (7.4-10.4); RED CELL DISTRIBUTION WIDTH 19.1 % (10.0-14.5); WHITE BLOOD COUNT 10.2 10^3/uL (4.3-11.0)
[2020-06-20 05:44] LABS: ALANINE AMINOTRANSFERASE 28 U/L (0-55); ALBUMIN 2.9 GM/DL (3.2-4.5); ALKALINE PHOSPHATASE 34 U/L (40-136); BILIRUBIN,TOTAL 0.8 MG/DL (0.1-1.0); BUN/CREATININE RATIO 14; CALCIUM 8.4 MG/DL (8.5-10.1); CARBON DIOXIDE 26 MMOL/L (21-32); CHLORIDE 104 MMOL/L (98-107); CREATININE SERUM 1.02 MG/DL (0.60-1.30); GFR ESTIMATED > 60; GLUCOSE 146 MG/DL (70-105); POTASSIUM 3.9 MMOL/L (3.6-5.0); SODIUM 137 MMOL/L (135-145); TOTAL PROTEIN 6.1 GM/DL (6.4-8.2)
[2020-06-20] MEDS: HYDROcodone/APAP 5 MG/325 MG (LORTAB) TAB PO PRN ×2 (06:09→11:43)
--- NOTE | 2020-06-20 06:35 | Consultation - Hospitalist ---
HPI History of Present Illness: HPI/Chief Complaint CC: S/P cholecystectomy HPI: This is a very complicated white male with a history of EMIR on CPAP who pr esented with acute cholecytitis s/p cholecystectomy by Dr. Healy in an uncomplicated manner. He hasnt had a BM in six days, he is eating and drinking well and he does use his CPAP at home and using his is. I reviewed his medical history and medications. Source: patient, RN/MD Exam Limitations: no limitations Date Seen 06/20/20 Attending Physician Gael Healy DO [facility] Center/[facility] [place] Referring Physician Date of Admission Jun 17, 2020 at 12:42 Home Medications & Allergies Home Medications Reviewed patient Home Medication Reconciliation performed by pharmacy medication reconciliations sterile technician and/or nursing. Patients Allergies have been reviewed. Allergies Allergies Coded Allergies No Known Drug Allergies (Unverified01/04/20) Past Tvojoqn-Uaxuqz-Yzwdes Hx Past Med/Social Hx: Reviewed Nursing Past Med/Soc Hx, Reviewed and Corrections made Patient Social History Marrital Status: Employed/Student: retired Alcohol Use: Denies Use Recreational Drug Use: No Smoking Status: Former Smoker 2nd Hand Smoke Exposure: Yes Recent Foreign Travel: No Contact w/other who traveled: No Recent Hopitalizations: No Recent Infectious Disease Expo: No Immunizations Up To Date Tetanus Booster (TDap): Unknown Pediatric: No Date of Pneumonia Vaccine: Jun 17, 2019 Date of Influenza Vaccine: Aug 15, 2019 Seasonal Allergies Seasonal Allergies: No Past Medical History Respiratory: Sleep Apnea Currently Using CPAP: Yes Currently Using BIPAP: No Cardiac: High Cholesterol, Hypertension Sexually Transmitted Disease: No HIV/AIDS: No Gastrointestinal: Gastroesophageal Reflux, Chronic Constipation Musculoskeletal: Arthritis Endocrine: Diabetes, Non-Insulin dep Loss of Vision: Denies Hearing Impairment: Denies Psychosocial: Depression History of Blood Disorders: No Adverse Reaction to Blood Forrester: No (N/A) Family History Dementia 19 FATHER, FH: pulmonary embolism Myocardial infarction G8 BROTHER, No Pertinent Family Hx Review of Systems Constitutional: see HPI Respiratory: see HPI Cardiovascular: see HPI Gastrointestinal: abdominal pain, loss of appetite Psychiatric/Neurological: See HPI Physical Exam Physical Exam Vital Signs Vital Signs - First Documented 06/17/20 06/19/20 08:40 10:40 Temp 36.2 Pulse 86 Resp 20 B/P (MAP) 170/79 (109) Pulse Ox 94 O2 Delivery Room Air FiO2 32 Capillary Refill : Less Than 3 SecondsLess Than 3 Seconds Height, Weight, BMI Height: 5'11.00" Weight: 259lbs. 0.0oz. 117.572015fw; 38.65 BMI Method: General Appearance: No Apparent Distress, WD/WN, Chronically ill, Obese Eyes: Bilateral Eye Normal Inspection HEENT: PERRL/EOMI, Normal ENT Inspection Neck: Full Range of Motion, Normal Inspection Respiratory: Chest Non Tender, No Accessory Muscle Use, No Respiratory Distress Cardiovascular: Regular Rate, Rhythm Gastrointestinal: Soft, Tenderness (ruq) Rectal: Deferred Back: No CVA Tenderness, No Vertebral Tenderness Extremity: Normal Inspection, Non Tender, No Calf Tenderness Neurologic/Psychiatric: Alert, Oriented x3, No Motor/Sensory Deficits Skin: Normal Color, Warm/Dry Lymphatic: No Adenopathy Results Results/Procedures Labs Laboratory Tests 06/19/20 04:51 06/20/20 05:05 Patient resulted labs reviewed. Assessment/Plan Assessment and Plan Assess & Plan/Chief Complaint Assessment: s/p gallbladder removal EMIR on cpap Morbid obesity HTN Plan: Supportive care Monitor oxygen Ambulate Clinical Quality Measures DVT/VTE Risk/Contraindication: Risk Factor Score Per Nursin RFS Level Per Nursing on Admit: 4+=Very High JOSEPH MORRISON DO Jun 20, 2020 06:35
[2020-06-20 07:47] VITALS: BP 118/79
[2020-06-20] MEDS: FAMOTIDINE 20MG/2ML IV (PEPCID) IV SCH (07:54)
[2020-06-20] MEDS ORDERED: PANTOPRAZOLE 40 MG (PROTONIX) TAB PO SCH (09:00)
--- NOTE | 2020-06-20 09:08 | NUR ---
This RN in room with patient at this time to notify patient that his insurance provider-Rehana has denied his inpatient stay. This RN presented patient with PANDA form and explained that because of the denial His DrSajan and our utilization review team determined that his hospital status be changed to observation. This RN reviewed PANDA form with patient. Questions were answered, Patient agreeable and form was signed. Copy of form left in room with patient.
--- NOTE | 2020-06-20 11:11 | Progress Note - Surgery ---
GILLIAN TRIANA MED STUDENT 06/20/20 1111: Subjective Date Seen by a Provider: Jun 20, 2020 Time Seen by a Provider: 08:10 Subjective/Events-last exam Pt feeling better and tolerating diet. Pain controlled and incision sites clean without signs of infection. Serosanguineous drainage coming from tube. Breathing is improved and back to normal. Denies n/v, fever, chills, sob, chest pain. Labs improving. Objective Exam Vital Signs Date Time Temp Pulse Resp B/P (MAP) Pulse Ox O2 Delivery O2 Flow Rate FiO2 06/20/20 10:18 94 Nasal Cannula 4.00 06/20/20 07:47 36.0 89 18 118/79 (92) 95 High Flow N/C 3.00 06/20/20 07:11 95 NIV CPAP 4.00 06/20/20 04:00 35.9 84 18 129/82 (98) 95 NIV CPAP 06/20/20 03:32 94 4.00 06/20/20 00:00 36.0 87 16 115/76 (89) 94 NIV CPAP 06/19/20 22:32 87 4.00 06/19/20 20:00 37.0 104 18 122/82 (95) 95 Nasal Cannula 3.00 06/19/20 20:00 NIV CPAP 4.00 06/19/20 18:29 98 Nasal Cannula 4.00 06/19/20 16:00 36.7 92 20 121/70 (87) 91 NIV CPAP 06/19/20 14:19 92 Nasal Cannula 3.00 06/19/20 12:00 36.6 103 20 122/70 (87) 91 Nasal Cannula I & O 06/20/20 07:00 Intake Total 2040 ml Output Total 30 ml Balance 2010 ml Capillary Refill : Less Than 3 SecondsLess Than 3 Seconds General Appearance: No Apparent Distress, WD/WN HEENT: PERRL/EOMI, Normal ENT Inspection Neck: Full Range of Motion, Normal Inspection Respiratory: Chest Non Tender, No Accessory Muscle Use, No Respiratory Distress Cardiovascular: Regular Rate, Rhythm Gastrointestinal: soft, tenderness (RUQ, incisions c/d/i), other (drain serosang) Extremity: Normal Inspection, Non Tender, No Calf Tenderness Neurologic/Psychiatric: Alert, Oriented x3, No Motor/Sensory Deficits Skin: Normal Color, Warm/Dry Lymphatic: No Adenopathy Results Lab Laboratory Tests 06/20/20 05:05: White Blood Count 10.2, Red Blood Count 4.57, Hemoglobin 10.6L, Hematocrit 34L, Mean Corpuscular Volume 74L, Mean Corpuscular Hemoglobin 23L, Mean Corpuscular Hemoglobin Concent 32, Red Cell Distribution Width 19.1H, Platelet Count 250, Mean Platelet Volume 9.1, Sodium Level 137, Potassium Level 3.9, Chloride Level 104, Carbon Dioxide Level 26, Anion Gap 7, Blood Urea Nitrogen 14, Creatinine 1.02, Estimat Glomerular Filtration Rate > 60, BUN/Creatinine Ratio 14, Glucose Level 146H, Calcium Level 8.4L, Corrected Calcium 9.3, Total Bilirubin 0.8, Aspartate Amino Transf (AST/SGOT) 16, Alanine Aminotransferase (ALT/SGPT) 28, Alkaline Phosphatase 34L, Total Protein 6.1L, Albumin 2.9L Microbiology 06/17/20 MRSA Screen - Final, Complete MRSA not isolated Assessment/Plan Assessment/Plan Assessment/Plan acute cholecystitis ruq abdominal pain s/p lap mckenna c ioc conitnue abx increase activity IS mohinder drain to bulb suction scd's for dvt prophylaxis possibly home today Clinical Quality Measures DVT/VTE Risk/Contraindication: Risk Factor Score Per Nursin RFS Level Per Nursing on Admit: 4+=Very High PARISA HEALY DO 06/20/20 1217: Subjective Subjective/Events-last exam Doing well. Breathing back to baseline. Tolerating diet. Denies n/v fever sweats chills shortness of breath or chest pain. Objective Exam General Appearance: No Apparent Distress, WD/WN HEENT: PERRL/EOMI, Normal ENT Inspection Neck: Full Range of Motion, Normal Inspection Respiratory: Chest Non Tender, No Accessory Muscle Use, No Respiratory Distress Cardiovascular: Regular Rate, Rhythm Gastrointestinal: soft, tenderness (RUQ, incisions c/d/i), other (drain serosang, minimal) Extremity: Normal Inspection, Non Tender, No Calf Tenderness Neurologic/Psychiatric: Alert, Oriented x3, No Motor/Sensory Deficits Skin: Normal Color, Warm/Dry Lymphatic: No Adenopathy Assessment/Plan Assessment/Plan Assessment/Plan acute cholecystitis ruq abdominal pain s/p lap mckenna c ioc hypoxia improved remove drain okay to dc home today home with oral pain medication and Augmentin for 5 days. Final Diagnosis acute cholecystitis ruq abdominal pain s/p lap mckenna c ioc hypoxia resolved Supervisory-Addendum Brief Verification & Attestation Participated in pt care: history, MDM, physical Personally performed: exam, history, MDM, supervision of care Care discussed with: Medical Student Procedures: n/a Results interpretation: Verified all documentation Verification and Attestation of Medical Student E/M Service A medical student performed and documented this service in my presence. I reviewed and verified all information documented by the medical student and made modifications to such information, when appropriate. I personally performed the physical exam and medical decision making. Parisa Healy, Jun 20, 2020,12:17 GILLIAN TRIANA MED STUDENT Jun 20, 2020 11:11 PARISA HEALY DO Jun 20, 2020 12:17
[2020-06-20] MEDS ORDERED: HYDR-4226 PO (12:12)
[2020-06-20] MEDS ORDERED: AMOX-358 PO (12:12)
--- NOTE | 2020-06-20 12:13 | Discharge Inst-Simple/Standard ---
Discharge Inst-Standard Discharge Medications New, Converted or Re-Newed RX: RX on Chart Patient Instructions/Follow Up Plan of Care/Instructions/FU: 2 weeks Monet Activity as Tolerated: No Discharge Diet: Regular Diet Other Inst to Patient Follow up Appt: Make appointment for 2 weeks. Instructions: No lifting greater than 10 pounds. No strenuous activity. May shower in 24 hours, no tub bath or soaking. Use incentive spirometer at home as directed. No Smoking Skin/Wound Care: You have special glue over incision, it will fall off on it's own. Symptoms to Report: Appetite Changes, Extremity Discoloration, Numbness/Tingling, Swelling Increased, Bleeding Excessive, Eyesight Changes, Pain Increased, Urine Color Change, Constipation(Persistent), Fever over 101 degree F, Pain/Pressure in ches t, Urinating Difficulty, Cough Up/Vomit Blood, Heart Beat Irreg/Pounding, Pain/Pressure in jaw, Vaginal Bleeding Increase, Cramps in feet or legs, Lightheadedness, Pain/Pressure in shoulder, Diarrhea(Persistent), Memory Changes Suddenly, Questions/Concerns, Weight gain consecutive days, Dizziness/Fainting, Nausea/Vomiting, Shortness of Breath, Weight gain over 2 pounds. If eyes or skin turn yellow notify physician. If questions or concerns contact your physician Or seek help at emergency department. PARISA REDD DO Jun 20, 2020 12:13
--- NOTE | 2020-06-20 13:30 | NUR ---
ROCAEL DRAIN REMOVED FROM RIGHT MIDDLE ABD. BRAYAN. WELL. STERILE DRESSING APPLIED.
[2020-06-20 13:35] VITALS: BP 118/79
--- NOTE | 2020-06-20 13:35 | NUR ---
GERMAN RAMIREZ demonstrates understanding of discharge instructions and accurately returns instructions upon questioning. Copy of Post-Discharge Instructions given to PT. GERMAN RAMIREZ is able to manage continuing needs after discharge. Patients belongings returned to PT. Patient discharged from 421-1 on 06/20/20 at 1335. GERMAN RAMIREZ left floor via W/C, accompanied by STAFF AND PER AUTO.
[2020-06-20] MEDS ORDERED: FAMOTIDINE 20 MG (PEPCID) TABLET PO SCH (21:00)
--- OUTSIDE RECORDS SUMMARY | 2020-06-21 11:11 | XMS REPORT ---
Author Author Barrie SIMMONS Organization [facility] Address [address] [place] [address] Care Team Providers Care Construction Representative Name Role Phone JOYCE SIMMONS Unavailable PROBLEMS Type Condition ICD9-CM Code ZFR53-EX Code Onset Dates Condition S tatus SNOMED Code Problem Primary insomnia F51.01 Active 397 2004 Problem Diabetes type 2, controlled E11.9 Ac tive 29522942 Problem Urinary hesitancy R39.11 Active 59 78920 Problem Essential hypertension I10 Active 19237875 Problem 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.1 Active 957121899 Problem Obstructive sleep apnea G47.33 Active 55018061 Problem Benign prostatic hyperplasia with lower urinary tract symptoms N40.1 Active 393525283 Problem Controlled type 2 diabetes m ellitus without complication, without long- term current use of insulin E11.9 Active 426878184 Problem 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 Acti ve 53332334 Problem Panlobular emphysema J43.1 Active 2446195 Problem Hesitancy of micturition R39.11 Activ e 0681730 Problem Chronic fatigue R53.82 Active 8422 9001 Problem Acute superficial venous thrombosis of left lower extremit y I82.812 Active [id number] Problem Uncontrolled type 2 diabetes mellitus with hyperglycemia E11.65 Active 907429352 Problem Arthritis M19.90 Active 1570498 Problem EMIR (obstructive sleep apnea) G47.33 Active 02046654 Problem Mood disorder F39 Active 036870 05 ALLERGIES No Information ENCOUNTERS Encounter Location Date Diagnosis [facility] [address] [facility] [id number] [address] [place] [phone] Jun, [facility] [address] [facility] [id number] [address] [place] [phone] Jun, Chest pain on exertion R07.9 ; Shortness of breath R06.02 ; Essential hypertension I10 and Controlled type 2 diabetes mellitus without complication, without long-term current use of insulin E11.9 [place] [address] [id number] [address] [place] [phone] 05 Jun, 2020 Foot callus L84 [place] [address] [id number] [address] [place] [phone] 16 May, 2020 Moderate episode of recurren t major depressive disorder F33.1 [place] [address] [facility] [id number] [address] [place] [phone] 03 May, 2020 [place] [address] [id number] [address] [place] [phone] 14 Apr, 2020 Encounter for screening labo ratory testing for COVID-19 virus Z11.59 [place] [address] [facility] [id number] [address] [place] [phone] 04 Apr, 2020 Moderate episode of recurren t major depressive disorder F33.1 [place] [address] [facility] [id number] [address] [place] [phone] March, Diabetes type 2, controlled E11.9 ; Family history of early CAD Z82.49 ; Chest pain on exertion R07.9 and Chronic fatigue R53.82 [place] [address] [id number] [address] [place] [phone] March, [place] [address] [facility] [id number] [address] [place] [id number] March, Moderate episode of recurren t major depressive disorder F33.1 [place] [address] [id number] [address] [place] [id number] March, Moderate episode of recurren t major depressive disorder F33.1 [place] [address] [id number] [address] [place] [phone] March, Foot callus L84 [place] [address] [id number] [address] [place] [id number] March, Moderate episode of recurren t major depressive disorder F33.1 [place] [address] [facility] [id number] [address] [place] [phone] Jan, Foot callus L84 [facility] [address] [facility] [id number] [address] [place] [id number] 07 Dec, 2019 Moderate episode of recurren t major depressive disorder F33.1 [facility] [address] [facility] [id number] [address] [place] [id number] 04 Dec, 2019 Moderate episode of recurren t major depressive disorder F33.1 [facility] [address] [facility] [id number] [address] [place] [phone] 04 Dec, 2019 Moderate episode of recurren t major depressive disorder F33.1 [place] [address] [facility] [id number] [address] [place] [phone] 16 Nov, 2019 Panlobular emphysema J43.1 ; Mood disorder F39 and Controlled type 2 diabetes mellitus without complication, without long-term current use of insulin E11.9 [facility] [address] [facility] [id number] [address] [place] [phone] Nov, [facility] [address] [facility] [id number] [address] [place] [phone] Nov, Increased sputum production R09.3 and EMIR (obstructive sleep apnea) G47.33 [facility] [address] [facility] [id number] [address] [place] [phone] Oct, [facility] [address] [facility] [id number] [address] [place] [phone] Sep, [facility] [address] [facility] [id number] [address] [place] [phone] Sep, [facility] [address] [facility] [id number] [address] [place] [phone] Sep, [facility] [address] [facility] [id number] [address] [place] [phone] Aug, Moderate episode of recurren t major depressive disorder F33.1 [facility] [address] [id number] [address] [place] [phone] Aug, Moderate episode of recurren t major depressive disorder F33.1 [facility] [address] [id number] [address] [place] [phone] Aug, Moderate episode of recurren t major depressive disorder F33.1 [facility] [address] [id number] [address] [place] [phone] Jul, [facility] [address] [id number] [address] [place] [phone] Jul, Foot callus L84 ; Uncontroll ed type 2 diabetes mellitus with hyperglycemia E11.65 ; Arthritis M19.90 ; Encounter for immunization Z23 ; Rib pain on right side R07.81 and Lumbar pain M54.5 [facility] [address] [id number] [address] [place] [phone] Jul, [facility] [address] [id number] [address] [place] [phone] Jun, [facility] [address] [id number] [address] [place] [phone] Jun, [facility] [address] [id number] [address] [place] [phone] Jun, Callus of foot L84 [facility] [address] [id number] [address] [place] [phone] Jun, [facility] [address] [id number] [address] [place] [phone] Apr, Exercise counseling Z71.82 [facility] [address] [id number] [address] [place] [phone] March, Moderate episode of recurren t major depressive disorder F33.1 [facility] [address] [id number] [address] [place] [phone] March, Moderate episode of recurren t major depressive disorder F33.1 [facility] [address] [id number] [address] [place] [address] March, Exercise counseling Z71.82 [facility] [address] [id number] [address] [place] [phone] March, [facility] [address] [id number] [address] [place] [phone] March, Exercise counseling Z71.82 [facility] [address] [id number] [address] [place] [phone] March, Right otitis media with effu yousuf H65.91 ; 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 and Diabetes type 2, controlled E11.9 [place] [address] [id number] [address] [place] [phone] March, Moderate episode of recurren t major depressive disorder F33.1 [place] [address] [facility] [id number] [address] [place] [phone] March, Exercise counseling Z71.82 [place] [address] [id number] [address] [place] [phone] March, Exercise counseling Z71.82 [place] [address] [facility] [id number] [address] [place] [phone] March, Callus of foot L84 [facility] [address] [id number] [address] [place] [id number] Feb, Moderate episode of recurren t major depressive disorder F33.1 [facility] [address] [id number] [address] [place] [phone] Feb, [facility] [address] [id number] [address] [place] [phone] Feb, Moderate episode of recurren t major depressive disorder F33.1 [facility] [address] [facility] [id number] [address] [place] [phone] Feb, Diabetes type 2, controlled E11.9 and Essential hypertension I10 [facility] [address] [id number] [address] [place] [phone] Jan, [facility] [address] [facility] [id number] [address] [place] [phone] Jan, Callus of foot L84 [facility] [address] [facility] [id number] [address] [place] [phone] Jan, Moderate episode of recurren t major depressive disorder F33.1 [facility] [address] [facility] [id number] [address] [place] [phone] Jan, Moderate episode of recurren t major depressive disorder F33.1 [place] [address] [facility] [id number] [address] [place] [phone] Dec, Moderate episode of recurren t major depressive disorder F33.1 [place] [address] [facility] [id number] [address] [place] [phone] 11 Dec, 2018 Candidiasis of the esophagus B37.81 [place] [address] [facility] [id number] [address] [place] [phone] Dec, [facility] [address] [facility] [id number] [address] [place] [phone] Dec, Fecal occult blood test posi tive R19.5 and Anemia, unspecified type D64.9 [place] [address] [facility] [id number] [address] [place] [phone] Nov, Stool color black K92.1 [place] [address] [facility] [id number] [address] [place] [phone] Nov, Stool color black K92.1 [place] [address] [facility] [id number] [address] [place] [phone] Nov, Stool color black K92.1 [facility] [address] [facility] [id number] [address] [place] [phone] Nov, [facility] [address] [facility] [id number] [address] [place] [phone] Nov, Moderate episode of recurren t major depressive disorder F33.1 [facility] [address] [id number] [address] [place] [id number] Oct, Moderate episode of recurren t major depressive disorder F33.1 [facility] [address] [facility] [id number] [address] [place] [phone] 18 Oct, 2018 Callus of foot L84 and Contr olled type 2 diabetes mellitus without complication, without long-term current use of insulin E11.9 [place] [address] [id number] [address] [place] [phone] 10 Oct, 2018 Moderate episode of recurren t major depressive disorder F33.1 [place] [address] [id number] [address] [place] [id number] 17 Aug, 2018 Mood disorder F39 [place] [address] [facility] [id number] [address] [place] [phone] 05 Aug, 2018 Encounter for immunization Z 23 [place] [address] [facility] [id number] [address] [place] [phone] Jul, Moderate episode of recurren t major depressive disorder F33.1 [place] [address] [id number] [address] [place] [phone] Jul, Moderate episode of recurren t major depressive disorder F33.1 [place] [address] [facility] [id number] [address] [place] [phone] May, [place] [address] [id number] [address] [place] [id number] May, Moderate episode of recurren t major depressive disorder F33.1 [facility] [address] [id number] [address] [place] [phone] May, Moderate episode of recurren t major depressive disorder F33.1 [place] [address] [facility] [id number] [address] [place] [phone] Apr, Benign prostatic hyperplasia with lower urinary tract symptoms N40.1 and Hesitancy of micturition R39.11 [place] [address] [id number] [address] [place] [phone] Apr, Moderate episode of recurren t major depressive disorder F33.1 [facility] [address] [id number] [address] [place] [id number] Apr, Unspecified mood [affective] disorder F39 and Primary insomnia F51.01 [facility] [address] [id number] [address] [place] [phone] Apr, Primary insomnia F51.01 [place] [address] [id number] [address] [place] [id number] March, Foot callus L84 [place] [address] [id number] [address] [place] [phone] Feb, Medicare annual wellness vis it, initial Z00.00 [facility] [address] [id number] [address] [place] [phone] Feb, Acute superficial venous thr ombosis of left lower extremity I82.812 [facility] [address] [id number] [address] [place] [phone] Feb, [facility] [address] [id number] [address] [place] [phone] Feb, [facility] [address] [id number] [address] [place] [phone] Feb, Acute superficial venous thr ombosis of left lower extremity I82.812 [facility] [address] [id number] [address] [place] [phone] Feb, [facility] [address] [id number] [address] [place] [phone] Feb, Other specified soft tissue disorders M79.89 and Pain in left leg M79.605 [facility] [address] [id number] [address] [place] [phone] Jan, Obstructive sleep apnea G47. 33 [facility] [address] [id number] [address] [place] [phone] Dec, Obstructive sleep apnea G47. 33 and Mood disorder F39 [facility] [address] [facility] [id number] [address] [place] [phone] Dec, [facility] [address] [facility] [id number] [address] [place] [id number] Dec, [facility] [address] [facility] [id number] [address] [place] [phone] Nov, Diabetes type 2, controlled E11.9 [facility] [address] [facility] [id number] [address] [place] [phone] Nov, Encounter for immunization Z 23 [facility] [address] [facility] [id number] [address] [place] [phone] Nov, Primary insomnia F51.01 [facility] [address] [place] [id number] [address] [place] [phone] Oct, Medicare annual wellness vis it, subsequent Z00.00 and Mood disorder F39 [facility] [address] [facility] [id number] [address] [place] [phone] Sep, Mood disorder F39 [place] [address] [facility] [id number] [address] [place] [address] Aug, Primary insomnia F51.01 and Urinary hesitancy R39.11 [facility] [address] [facility] [id number] [address] [place] [phone] Aug, Primary insomnia F51.01 [facility] [address] [facility] [id number] [address] [place] [id number] Jul, Diabetes type 2, controlled E11.9 ; Primary insomnia F51.01 and Mood disorder F39 [facility] [address] [id number] [id number] Jun, Mood disorder F39 [facility] [address] [id number] [id number] Jun, [place] [address] [id number] [address] [place] [id number] May, Nightmares F51.5 [facility] [address] [id number] [address] [place] [phone] May, Cognitive complaints R41.9 ; Unspecified mood [affective] disorder F39 and Primary insomnia F51.01 [facility] [address] [id number] [address] [place] [address] Apr, Mood disorder F39 and Primar y insomnia F51.01 [facility] [address] [id number] [address] [place] [id number] Apr, Cognitive complaints R41.9 a nd Unspecified mood [affective] disorder F39 [facility] [address] [id number] [address] [place] [id number] Apr, Cognitive complaints R41.9 a nd Unspecified mood [affective] disorder F39 [facility] [address] [id number] [address] [place] [phone] March, [facility] [address] [id number] [address] [place] [address] March, Diabetes type 2, controlled E11.9 and Essential hypertension I10 [facility] [address] [id number] [address] [place] [phone] March, Primary insomnia F51.01 ; Di abetes type 2, controlled E11.9 and Pain in right shoulder M25.511 [facility] [address] [id number] [address] [place] [phone] March, Cognitive complaints R41.9 a nd Unspecified mood [affective] disorder F39 [facility] [address] [id number] [address] [place] [phone] Feb, Other specified mental disor ders due to known physiological condition F06.8 [facility] [address] [id number] [address] [place] [id number] Jan, [facility] [address] [facility] [id number] [address] [place] [phone] Jan, [facility] [address] [facility] [id number] [address] [place] [id number] Dec, Diabetes type 2, controlled E11.9 ; Hypertension, benign I10 and Mood disorder F39 [place] [address] [facility] [id number] [address] [place] [id number] 08 Dec, 2016 Medicare annual wellness vis it, initial Z00.00 [place] [address] [facility] [id number] [address] [place] [phone] 05 Nov, 2016 Medicare welcome exam Z00.00 ; Encounter for immunization Z23 ; Medicare annual wellness visit, initial Z00.00 and Medicare annual wellness visit, subsequent Z00.00 [place] [address] [facility] [id number] [address] [place] [phone] Oct, [place] [address] [facility] [id number] [address] [place] [phone] Sep, [facility] [address] [facility] [id number] [address] [place] [id number] Aug, Encounter for immunization Z 23 and Callus L84 [place] [address] [facility] [id number] [address] [place] [phone] Aug, [place] [address] [facility] [id number] [address] [place] [address] Jul, Diabetes type 2, controlled E11.9 [facility] [address] [facility] [id number] [address] [place] [id number] Jul, Diabetes type 2, controlled E11.9 [place] [address] [facility] [id number] [address] [place] [id number] Jun, [place] [address] [facility] [id number] [address] [place] [id number] Jun, Hypertension, benign I10 ; M ood disorder F39 and Diabetes type 2, controlled E11.9 [place] [address] [id number] [address] [place] [id number] Jun, Mood disorder F39 [facility] [address] [id number] [address] [place] [id number] May, [facility] [address] [id number] [address] [place] [id number] May, Mood disorder F39 [facility] [address] [id number] [address] [place] [id number] May, Mood disorder F39 [facility] [address] [id number] [address] [place] [id number] Apr, Controlled type 2 diabetes m ellitus without complication, without long-term current use of insulin E11.9 ; Essential hypertension I10 and Pain in right shoulder M25.511 [facility] [address] [id number] [address] [place] [id number] Apr, Mood disorder F39 [facility] [address] [id number] [address] [place] [id number] Apr, Pre-op evaluation Z01.818 [facility] [address] [id number] [address] [place] [id number] March, Mood disorder F39 [facility] [address] [id number] [address] [place] [id number] Feb, [facility] [address] [id number] [address] [place] [id number] Feb, Shoulder pain, right M25.511 [facility] [address] [id number] [address] [place] [id number] Feb, Shoulder pain, right M25.511 [facility] [address] [id number] [address] [place] [id number] Feb, Shoulder pain, right M25.511 [facility] [address] [id number] [address] [place] [id number] Feb, Shoulder pain, right M25.511 [facility] [address] [id number] Jan, Shoulder pain, right M25.511 [facility] [address] [id number] Jan, Shoulder pain, right M25.511 [place] [address] [id number] Jan, [place] [address] [id number] Jan, Diabetes type 2, controlled E11.9 [place] [address] [id number] Jan, Shoulder pain, right M25.511 ; Diabetes mellitus without mention of complication, type II or unspecified type, not stated as uncontrolled 250.00 and Diabetes type 2, controlled E11.9 [place] [address] [id number] Jan, [place] [address] [id number] Jan, [place] [address] [id number] Dec, [place] [address] [id number] Oct, Callus of foot L84 [place] [address] [id number] Oct, Anxiety F41.9 ; Callus of fo ot L84 and Dysuria R30.0 [place] [address] [address] Sep, Diabetes mellitus without me ntion of complication, type II or unspecified type, not stated as uncontrolled 250.00 [place] [address] [address] Aug, Diabetes mellitus without me ntion of complication, type II or unspecified type, not stated as uncontrolled 250.00 [facility] [address] [id number] [address] [place] [id number] Jul, [facility] [address] [id number] [address] [place] [id number] Jul, [facility] [address] [id number] [address] [place] [id number] Jul, Diabetes mellitus without me ntion of complication, type II or unspecified type, not stated as uncontrolled 250.00 ; Essential hypertension, benign 401.1 and Anxiety state, unspecified 300.00 [facility] [address] [id number] [address] [place] [id number] Jul, [facility] [address] [id number] [address] [place] [id number] Jun, [facility] [address] [id number] [address] [place] [id number] Jun, [facility] [address] [id number] [address] [place] [id number] May, [facility] [address] [id number] [address] [place] [id number] May, [facility] [address] [id number] [address] [place] [id number] Apr, [facility] [address] [id number] [address] [place] [id number] Apr, Mood disorder 296.90 [facility] [address] [id number] [address] [place] [id number] March, [facility] [address] [id number] [address] [place] [id number] Feb, [facility] [address] [id number] [address] [place] [id number] Feb, [facility] [address] [id number] [address] [place] [address], [place] [address] 27 Jan, 2015 [facility] [address] [id number] [address] [place] [address], [place] [address] Jan, [facility] [address] [id number] [address] [place] [address], [place] [address] Jan, [facility] [address] [id number] [address] [place] [address], [place] [address] Jan, [facility] [address] [id number] [address] [place] [address], [place] [address] Jan, [facility] [address] [id number] [address] [place] [address], [place] [address] Jan, [facility] [address] [id number] [address] [place] [address], [place] [address] Jan, [facility] [address] [id number] [address] [place] [address], [place] [address] Jan, [facility] [address] [id number] [address] [place] [address], [place] [address] Dec, [facility] [address] [id number] [address] [place] [address], [place] [address] Dec, [facility] [address] [id number] [address] [place] [address], [place] [address] Nov, [facility] [address] [id number] [address] [place] [address], [place] [address] Nov, [facility] [address] [id number] [address] [place] [address], [place] [address] Nov, [facility] [address] [id number] [address] [place] [address], [place] [address] Nov, [facility] [address] [id number] [address] [place] [address], [place] [address] Oct, [facility] [address] [id number] [address] [place] [address], [place] [address] Oct, [facility] [address] [id number] [address] [place] [address], [place] [address] Oct, [facility] [address] [id number] [address] [place] [address], [place] [address] Oct, [facility] [address] [id number] [address] [place] [address], [place] [address] Oct, [facility] [address] [id number] [address] [place] [address], [place] [address] Oct, [facility] [address] [id number] [address] [place] [address], [place] [address] Oct, [facility] [address] [id number] [address] [place] [address], [place] [address] Oct, [facility] [address] [id number] [address] [place] [address], [place] [address] 15 Oct, 2014 [facility] [address] [id number] [address] [place] [address], [place] [address] 15 Oct, 2014 [facility] [address] [id number] [address] [place] [address], [place] [address] Sep, [facility] [address] [id number] [address] [place] [address], [place] [address] 19 Sep, 2014 [facility] [address] [id number] [address] [place] [address], [place] [address] 18 Sep, 2014 [facility] [address] [id number] [address] [place] [address], [place] [address] 18 Sep, 2014 [facility] [address] [id number] [address] [place] [address], [place] [address] 18 Sep, 2014 [facility] [address] [id number] [address] [place] [address], [place] [address] 18 Sep, 2014 [facility] [address] [id number] [address] [place] [address], [place] [address] 16 Aug, 2014 [facility] [address] [id number] [address] [place] [address], [place] [address] Aug, [facility] [address] [id number] [address] [place] [address], [place] [address] Jul, [facility] [address] [id number] [address] [place] [address], [place] [address] Jul, [facility] [address] [id number] [address] [place] [address], [place] [address] Jun, [facility] [address] [id number] [address] [place] [address], [place] [address] Jun, [facility] [address] [id number] [address] [place] [address], [place] [address] May, [facility] [address] [id number] [address] [place] [address], [place] [address] May, [facility] [address] [id number] [address] [place] [address], [place] [address] Apr, [facility] [address] [id number] [address] [place] [address], [place] [address] Apr, [facility] [address] [id number] [address] [place] [address], [place] [address] Apr, [facility] [address] [id number] [address] [place] [address], [place] [address] Apr, [facility] [address] [id number] [address] [place] [address], [place] [address] March, [facility] [address] [id number] [address] [place] [address], [place] [address] March, [facility] [address] [id number] [address] [place] [address], [place] [address] Jan, [facility] [address] [id number] [address] [place] [address], [place] [address] Jan, [facility] [address] [id number] [address] [place] [address], [place] [address] Jan, [facility] [address] [id number] [address] [place] [address], [place] [address] Jan, [facility] [address] [id number] [address] [place] [address], [place] [address] Jan, [facility] [address] [id number] [address] [place] [address], [place] [address] Jan, [facility] [address] [id number] [address] [place] [address], [place] [address] Dec, [facility] [address] [id number] [address] [place] [address], [place] [address] Dec, [facility] [address] [id number] [address] [place] [address], [place] [address] Oct, [facility] [address] [id number] [address] [place] [address], [place] [address] Oct, [facility] [address] [id number] [address] [place] [address], [place] [address] Oct, [facility] [address] [id number] [address] [place] [address], [place] [address] Oct, [facility] [address] [id number] [address] [place] [address], [place] [address] Jul, [facility] [address] [id number] [address] [place] [address], [place] [address] Jul, [facility] [address] [id number] [address] [place] [address], [place] [address] Jul, [facility] [address] [id number] [address] [place] [address], [place] [address] Jun, [facility] [address] [id number] [address] [place] [address], [place] [address] Jun, [facility] [address] [id number] [address] [place] [address], [place] [address] May, [facility] [address] [id number] [address] [place] [address] [address] May, [facility] [address] [id number] [address] [place] [address], [place] [address] March, [facility] [address] [id number] [address] [place] [address], [place] [address] March, [facility] [address] [id number] [address] [place] [address], [place] [address] Feb, [facility] [address] [id number] [address] [place] [address], [place] [address] Feb, [facility] [address] [id number] [address] [place] [address], [place] [address] Jan, [facility] [address] [id number] [address] [place] [address], [place] [address] Dec, [facility] [address] [id number] [address] [place] [address], [place] [address] Dec, [facility] [address] [id number] [address] [place] [address], [place] [address] 15 Dec, 2012 [facility] [address] [id number] [address] [place] [address], [place] [address] 14 Dec, 2012 [facility] [address] [id number] [address] [place] [address], [place] [address] Dec, [facility] [address] [id number] [address] [place] [address], [place] [address] Nov, [facility] [address] [id number] [address] [place] [address], [place] [address] Oct, [facility] [address] [id number] [address] [place] [address], [place] [address] Oct, [facility] [address] [id number] [address] [place] [address], [place] [address] Aug, [facility] [address] [id number] [address] [place] [address], [place] [address] Aug, [facility] [address] [id number] [address] [place] [address], [place] [address] 10 Aug, 2012 [facility] [address] [id number] [address] [place] [address], [place] [address] Aug, [facility] [address] [id number] [address] [place] [address], [place] [address] Aug, [facility] [address] [id number] [address] [place] [address], [place] [address] Jul, [facility] [address] [id number] [address] [place] [address], [place] [address] Jul, [facility] [address] [id number] [address] [place] [address], [place] [address] Jun, [facility] [address] [id number] [address] [place] [address], [place] [address] Jun, [facility] [address] [id number] [address] [place] [address], [place] [address] May, [facility] [address] [id number] [address] [place] [address], [place] [address] May, [facility] [address] [id number] [address] [place] [address], [place] [address] May, [facility] [address] [id number] [address] [place] [address], [place] [address] Apr, [facility] [address] [id number] [address] [place] [address], [place] [address] Apr, [facility] [address] [id number] [address] [place] [address], [place] [address] March, [facility] [address] [id number] [address] [place] [address], [place] [address] March, [facility] [address] [id number] [address] [place] [address], [place] [address] Feb, [facility] [address] [id number] [address] [place] [address], [place] [address] Feb, [facility] [address] [facility] [id number] [address] [place] [id number] Feb, [facility] [address] [facility] [id number] [address] [place] [address] Feb, IMMUNIZATIONS No Known Immunizations SOCIAL HISTORY Never Assessed REASON FOR VISIT PLAN OF CARE VITAL SIGNS MEDICATIONS Unknown Medications RESULTS No Results PROCEDURES Procedure Date Ordered Result Body Site PSYTX PT&/FAMILY 45 MINUTES April 07, 2013 INSTRUCTIONS MEDICATIONS ADMINISTERED No Known Medications [...] Hospitalization History stomach stapled 1979 Hospitalization History stomach stapled 1979 Hospitalization History [facility] bleeding 12/2018 Hospitalization History [facility] bleeding 12/2018
--- OUTSIDE RECORDS SUMMARY | 2020-06-21 11:22 | XMS REPORT | Continuity of Care Document ---
Demographics Preferred Language Unknown Marital Status Unknown Nondenominational Affiliation Unknown Race Unknown Ethnic Group Unknown Author Organization Unknown Address Unknown Phone Unavailable Allergies Active Description Code Type Severity Reaction Onset Reported/Identified Relationship to Patient Clinical Status Yes No Known Drug Allergies [id number] Drug Allergy Unknown N/A 01/04/2020 Medications There [...] APRN 40 1.1 HYPERTENSION, BENIGN ESSENTIAL 02/23/2012 ARSEN MELÉNDEZ MARIA G K 401.1 HYPERTENSION, BENIGN ESSENTIAL [...] K 300.00 AN ANXIETY UNSPEC 02/17/2013 ARSEN MELÉNDEZ MARIA G K 311 DEPRESSIVE DISORDER NOS 02/17/2013 GERMAN BUSTILLO APRN 300.00 AN ANXIETY UNSPEC 02/17/2013 [employer] EXPELLER WORKER, GERMAN T 31 1 DEPRESSIVE DISORDER NOS [...] GERMAN BUSTILLO APRN V04.81 FLU SHOT 12/13/2013 LEGRE DO, MARIA G K V04.81 FLU SHOT [...] 72 4.2 BACK PAIN, LOWER 10/25/2014 [employer] EXPELLER WORKER GERMAN T 72 4.2 BACK PAIN, LOWER [...] 327.23 OBSTRUCTIVE SLEEP APNEA (ADULT) (PEDIATR 02/28/2015 GERMAN BUSTILLOP Ot 401.9 HYPERTENSION NOS 04/07/2015 GERMAN BUSTILLO MANAGER METROLOGY Ot 327.23 OBSTRUCTIVE SLEEP APNEA (ADULT) (PEDIATR 02/21/2016 Ot V72.84 02/21/2016 GERMAN BUSTILLO MANAGER METROLOGY Ot M25.511 02/22/2016 GERMAN BUSTILLOP Ot M25.511 [...] ENCOUNTER FOR SCREENING FOR OTHER BACTER 04/23/2016 CHUCK MAGDALENO MD Ot E11.9 TYPE 2 DIABETES [...] M PRE- OPERATIVE NOS 11/20/2016 GERMAN BUSTILLO MANAGER METROLOGY Ot M25.511 PAIN IN RIGHT SHOULDER 11/20/2016 GERMAN BUSTILLO MANAGER METROLOGY Ot M25.511 PAIN IN RIGHT SHOULDER 12/30/2017 GERMAN BUSTILLO MANAGER METROLOGY Ot G47.33 OBSTRUCTIVE SLEEP APNEA (ADULT) (PEDIATR 12/31/2017 GERMAN BUSTILLO MANAGER METROLOGY Ot G47.33 OBSTRUCTIVE SLEEP APNEA (ADULT) (PEDIATR 12/31/2017 Ot V72.84 EXA M PRE- OPERATIVE NOS 12/31/2017 GERMAN BUSTILLO MANAGER METROLOGY Ot M25.511 PAIN IN RIGHT SHOULDER 12/31/2017 GERMAN BUSTILLO MANAGER METROLOGY Ot G47.33 OBSTRUCTIVE SLEEP APNEA (ADULT) (PEDIATR 01/02/2018 Ot V72.84 EXA M PRE- OPERATIVE NOS 01/02/2018 GERMAN BUSTILLO MANAGER METROLOGY Ot M25.511 PAIN IN RIGHT SHOULDER 01/02/2018 GERMAN BUSTILLO MANAGER METROLOGY Ot G47.33 OBSTRUCTIVE SLEEP APNEA (ADULT) (PEDIATR 01/03/2018 GERMAN BUSTILLO MANAGER METROLOGY Ot G47.10 HYPERSOMNIA, UNSPECIFIED 01/03/2018 GERMAN BUSTILLO MANAGER METROLOGY Ot G47.33 OBSTRUCTIVE SLEEP APNEA (ADULT) (PEDIATR 01/03/2018 GERMAN BUSTILLO MANAGER METROLOGY Ot R06.83 SNORING 01/05/2018 GERMAN BUSTILLO MANAGER METROLOGY Ot G47.10 HYPERSOMNIA, UNSPECIFIED 01/05/2018 GERMAN BUSTILLO MANAGER METROLOGY Ot G47.33 OBSTRUCTIVE SLEEP APNEA (ADULT) (PEDIATR 01/05/2018 GERMAN BUSTILLO MANAGER METROLOGY Ot R06.83 SNORING 01/10/2018 GERMAN BUSTILLO MANAGER METROLOGY Ot G47.10 HYPERSOMNIA, UNSPECIFIED 01/10/2018 GERMAN BUSTILLO MANAGER METROLOGY Ot G47.33 OBSTRUCTIVE SLEEP APNEA (ADULT) (PEDIATR 01/10/2018 GERMAN BUSTILLO MANAGER METROLOGY Ot R06.83 SNORING 01/18/2018 MIR VELEZ EXPELLER WORKER Ot G47.33 OBSTRUCTIVE SLEEP APNEA (ADULT) (PEDIATR 01/22/2018 MIR VELEZ EXPELLER WORKER Ot G47.33 OBSTRUCTIVE SLEEP APNEA (ADULT) (PEDIATR 01/22/2018 MIR VELEZ EXPELLER WORKER Ot G47.33 OBSTRUCTIVE SLEEP APNEA (ADULT) (PEDIATR [...] ABNORMALITIES 12/15/2018 MANINDER SZYMANSKI MD Ot Z79.82 DETENTION (CURRENT) USE OF ASPIRIN 12/15/2018 MANINDER SZYMANSKI MD, Ot Z79.84 DETENTION (CURRENT) USE OF ORAL HYPOGLYC 12/15/2018 MANINDER SZYMANSKI MD, Ot Z79.899 OTHER DETENTION (CURRENT) DRUG THERAPY 12/15/2018 MANINDER SZYMANSKI MD, [...] ABNORMALITIES 12/22/2018 MANINDER SZYMANSKI MD, Ot Z79.82 DETENTION (CURRENT) USE OF ASPIRIN 12/22/2018 MANINDER SZYMANSKI MD, Ot Z79.84 DETENTION (CURRENT) USE OF ORAL HYPOGLYC 12/22/2018 MANINDER SZYMANSKI MD, Ot Z79.899 OTHER DETENTION (CURRENT) DRUG THERAPY 12/22/2018 MANINDER SZYMANSKI MD, [...] ABNORMALITIES 12/22/2018 MANINDER SZYMANSKI MD, Ot Z79.82 DETENTION (CURRENT) USE OF ASPIRIN 12/22/2018 MANINDER SZYMANSKI MD, Ot Z79.84 WREATH AND [place]ARLAND MAKER HAND (CURRENT) USE OF ORAL HYPOGLYC 12/22/2018 MANINDER SZYMANSKI MD, Ot Z79.899 OTHER DETENTION (CURRENT) DRUG THERAPY 12/22/2018 MANINDER SZYMANSKI MD, [...] ABNORMALITIES 12/23/2018 MANINDER SZYMANSKI MD, Ot Z79.82 WREATH AND [place]AR[place] MAKER HAND (CURRENT) USE OF ASPIRIN 12/23/2018 MANINDER SZYMANSKI MD Ot Z79.84 DETENTION (CURRENT) USE OF ORAL HYPOGLYC 12/23/2018 MANINDER SZYMANSKI MD Ot Z79.899 OTHER WREATH AND [place]AR[place] MAKER HAND (CURRENT) DRUG THERAPY 12/23/2018 MANINDER SZYMANSKI MD [...] 01/05/2020 PARISA REDD DO Ot Z79. 84 DETENTION (CURRENT) USE OF ORAL HYPOGLYC 01/05/2020 PARISA REDD DO Ot Z79.899 OTHER DETENTION (CURRENT) DRUG THERAPY 01/05/2020 PARISA REDD DO [...] 01/10/2020 PARISA REDD DO Ot Z79. 84 WREATH AND GAR[place] MAKER HAND (CURRENT) USE OF ORAL HYPOGLYC 01/10/2020 PARISA REDD DO Ot Z79.899 OTHER WREATH AND GARLAND MAKER HAND (CURRENT) DRUG THERAPY 01/10/2020 PARISA REDD DO [...] 01/12/2020 PARISA REDD DO Ot Z79. 84 DETENTION (CURRENT) USE OF ORAL HYPOGLYC 01/12/2020 PARISA REDD DO Ot Z79.899 OTHER DETENTION (CURRENT) DRUG THERAPY 01/12/2020 PARISA REDD DO Ot Z98. 84 BARIATRIC SURGERY STATUS 02/25/2020 ZUNILDA LOUISE APRN Ot G47.33 OBSTRUCTIVE SLEEP APNEA (ADULT) (PEDIATR 02/25/2020 ZUNILDA LOUISE APRN Ot J30.9 ALLERGIC RHINITIS, UNSPECIFIED 02/25/2020 ZUNILDA LOUISE APRN Ot J44.9 CHRONIC OBSTRUCTIVE PULMONARY DISEASE, U 02/25/2020 ZUNILDA LOUISE EXPELLER WORKER Ot R91.8 OTHER NONSPECIFIC ABNORMAL FINDING OF KINDRA 03/01/2020 ZUNILDA LOUISE APRN Ot G47.33 OBSTRUCTIVE SLEEP APNEA (ADULT) (PEDIATR 03/01/2020 DANIZUNILDA SANCHEZ APRN Ot J30.9 ALLERGIC RHINITIS, UNSPECIFIED 03/01/2020 DANIZUNILDA SANCHEZ EXPELLER WORKER Ot J44.9 CHRONIC OBSTRUCTIVE PULMONARY DISEASE, U 03/01/2020 DANIZUNILDA SANCHEZ EXPELLER WORKER Ot R91.8 OTHER NONSPECIFIC ABNORMAL FINDING OF KINDRA 03/28/2020 ZUNLIDA LOUISE APRN Ot G47.33 OBSTRUCTIVE SLEEP APNEA (ADULT) (PEDIATR 03/28/2020 DANIZUNILDA SANCHEZ APRN Ot J30.9 ALLERGIC RHINITIS, UNSPECIFIED 03/28/2020 DANIZUNILDA SANCHEZ APRN Ot J44.9 CHRONIC OBSTRUCTIVE PULMONARY DISEASE, U 03/28/2020 DANIZUNILDA SANCHEZ APRN Ot R91.8 OTHER NONSPECIFIC ABNORMAL FINDING OF KINDRA 06/20/2020 REDD PARISA MELÉNDEZ Ot E11. 9 TYPE 2 DIABETES MELLITUS WITHOUT COMPLIC 06/20/2020 REDD PARISA MELÉNDEZ Ot E66. 9 OBESITY, UNSPECIFIED 06/20/2020 REDD PARISA MELÉNDEZ Ot E78. 00 PURE HYPERCHOLESTEROLEMIA, UNSPECIFIED 06/20/2020 REDD PARISA MELÉNDEZ Ot G47. 30 SLEEP APNEA, UNSPECIFIED 06/20/2020 REDD PARISA MELÉNDEZ Ot I10 ESSENTIAL (PRIMARY) HYPERTENSION 06/20/2020 REDD PARISA MELÉNDEZ Ot J43. 9 EMPHYSEMA, UNSPECIFIED 06/20/2020 REDD PARISA MELÉNDEZ Ot K21. 9 GASTRO-ESOPHAGEAL REFLUX DISEASE WITHOUT 06/20/2020 PARISA REDD DO Ot K59. 03 DRUG INDUCED CONSTIPATION 06/20/2020 PARISA REDD DO Ot K80. 00 CALCULUS OF GALLBLADDER W ACUTE CHOLECYS 06/20/2020 PARISA REDD DO Ot M19. 91 PRIMARY OSTEOARTHRITIS, UNSPECIFIED SITE 06/20/2020 PARISA REDD DO Ot Z68. 38 BODY MASS INDEX (BMI) 38.0-38.9, ADULT 06/20/2020 PARISA REDD DO Ot Z77. 22 CNTCT W AND EXPSR TO ENVIRON TOBACCO SMO 06/20/2020 PARISA REDD DO Ot Z79. 84 DETENTION (CURRENT) USE OF ORAL HYPOGLYC 06/20/2020 PARISA REDD DO Ot Z98. 84 BARIATRIC SURGERY STATUS Procedures Code Description [place] [address] A1C (IN-HOUSE) 11/23/2012 Ghassan Bowers 12/23/2012 31384 TSH 01/10/2013 73820 CBC 01/10/2013 49460 CMP 01/10/2013 17905 LIPI D PANEL 01/10/2013 1400362 GF R CALC (RESULT ONLY) 01/10/2013 05792 PSYC H DIAGNOSTIC EVALUATION 02/21/2013 26017 A1C (IN-HOUSE) 03/15/2013 09756 PSYT X PT&/FAMILY 45 MINUTES 04/08/2013 05385 PSYT X PT&/FAMILY 45 MINUTES 06/23/2013 38701 PSYT X PT&/FAMILY 45 MINUTES 07/14/2013 60885 PSYT X PT&/FAMILY 45 MINUTES 08/04/2013 69148 A1C (IN-HOUSE) 10/17/2013 90786 ROUT INE VENIPUNCTURE 01/18/2014 26311 CMP 01/18/2014 77849 LIPI D PANEL 01/18/2014 64293 PSA TOTAL 01/18/2014 31631 A1C (IN-HOUSE) 01/18/2014 53664 CBC 01/18/2014 35083 XRAY CHEST 2 VIEW 04/05/2014 63256 A1C (IN-HOUSE) 07/28/2014 62947 SLEE P STUDY (HOSPITAL- SLEEP STUDY) 02/02/2015 G0102 PROS ALAN CA SCREENING; FELISA 02/02/2015 70698 A1C (IN-HOUSE) 02/02/2015 95653 MICR O ALBUMIN-IN HOUSE 02/02/2015 [id number] RE SECTION OF GALLBLADDER, PERCUTANEOUS E 06/18/2020 [id number] FL UOROSCOPY OF BILE DUCTS USING LOW OSMO 06/18/2020 Results Test Result Range CBC With Differential/Platelet [...] mg/dL 8.5-10.1 Whole blood hemoglobin and hematocrit pa frida - 12/13/18 20:02 Venous blood hemoglobin measurement (mass/volume) 9.4 g/dL 13.3-17.7 Blood hematocrit (volume fraction) 29 % 40-54 Whole blood hemoglobin and hematocrit [facility] - 12/14/18 00:17 Venous blood hemoglobin measurement (mass/volume) 9.0 g/dL 13.3-17.7 Blood hematocrit (volume fraction) 28 % 40-54 Whole blood hemoglobin and hematocrit [facility] - 12/14/18 04:15 Venous blood hemoglobin measurement (mass/volume) [...] Pathologist review of blood test by [facility] - 12/14/18 04:15 Blood leukocytes automated count [...] aureus (MRSA) scr eening culture NEG NRG Complete blood count (CBC) with automate d white blood cell (WBC) differential - 06/17/20 08:47 Blood leukocytes automated count (number/volume) 11.7 10*3/uL 4.3-11.0 Blood erythrocytes automated count (number/volume) 5.66 10*6/uL 4.35-5.85 Venous blood hemoglobin measurement (mass/volume) 13.0 g/dL 13.3-17.7 Blood hematocrit (volume fraction) 41 % 40-54 Automated erythrocyte mean corpuscular volume 72 [ foz_us] 80-99 Automated erythrocyte mean corpuscular h emoglobin (mass per erythrocyte) 23 pg 25-34 Automated erythrocyte mean corpuscular h emoglobin concentration measurement (mass/volume) 32 g/dL 32-36 Automated erythrocyte distribution width ratio 20. 0 % 10.0- 14.5 Automated blood platelet count (count/volume) 355 10*3/uL 130-400 Automated blood platelet mean volume measurement 9.1 [foz_us] 7.4-10.4 Automated blood neutrophils/100 leukocytes 82 % 42-75 Automated blood lymphocytes/100 leukocytes 7 % 12-44 Blood monocytes/100 leukocytes 12 % 0-12 Automated blood eosinophils/100 leukocytes 0 % 0-10 Automated blood basophils/100 leukocytes 0 % 0-10 Blood neutrophils automated count (number/volume) 9.6 10*3 1.8-7.8 Blood lymphocytes automated count (number/volume) 0.8 10*3 1.0-4.0 Blood monocytes automated count (number/volume) 1. 4 10*3 0.0-1.0 Automated eosinophil count 0.0 10*3/uL 0 .0-0.3 Automated blood basophil count (count/volume) 0.0 10*3/uL 0.0-0.1 Comprehensive metabolic panel - 06/17/20 08:47 Serum or plasma sodium measurement (moles/volume) 136 mmol/L 135-145 Serum or plasma potassium measurement (moles/volume) 4.1 mmol/L 3.6-5.0 Serum or plasma chloride measurement (moles/volume) 102 mmol/L 98-107 Carbon dioxide 23 mmol/L 21-32 Serum or plasma anion gap determination (moles/volume) 11 mmol/L 5-14 Serum or plasma urea nitrogen measurement (mass/volume ) 16 mg/dL 7-18 Serum or plasma creatinine measurement (mass/volume) 0.97 mg/dL 0.60-1.30 Serum or plasma urea nitrogen/creatinine mass ratio 16 NRG Serum or plasma creatinine measurement w ith calculation of estimated glomerular filtration rate > NRG Serum or plasma glucose measurement (mass/volume) 162 mg/dL 70-105 Serum or plasma calcium measurement (mass/volume) 9.0 mg/dL 8.5-10.1 Serum or plasma total bilirubin measurement (mass/volu me) 0.9 mg/dL 0.1-1.0 Serum or plasma alkaline phosphatase delfina surement (enzymatic activity/volume) 44 U/L 40-136 Serum or plasma aspartate aminotransfera se measurement (enzymatic activity/volume) 18 U/L 5-34 Serum or plasma alanine aminotransferase measurement (enzymatic activity/volume) 17 U/L 0-55 Serum or plasma protein measurement (mass/volume) 7.6 g/dL 6.4-8.2 Serum or plasma albumin measurement (mass/volume) 4.2 g/dL 3.2-4.5 CALCIUM CORRECTED 8.8 mg/dL 8.5-10.1 Lipase - 06/17/20 08:47 Lipase 8 U/L 8-78 Serum or plasma C reactive protein measu rement (mass/volume) - 06/17/20 08:47 Serum or plasma C reactive protein measurement (mass/v olume) 2.73 mg/dL 0.00-0.50 Manual absolute plasma cell count - 07/29 08:47 Blood monocytes/100 leukocytes 13 % NRG Manual blood segmented neutrophils/100 leukocytes 75 % NRG Blood band neutrophils/100 leukocytes 1 % NRG Manual blood lymphocytes/100 leukocytes 10 % NRG Manual eosinophils/100 leukocytes in nose 0 % NRG Manual blood basophils/100 leukocytes 1 % NRG Blood anisocytosis detection by light microscopy S LIGHT NRG Blood ovalocytes detection by light microscopy SLI GHT NRG Blood microcytes detection by light microscopy SLI GHT NRG Complete urinalysis with reflex to cultu re - 06/17/20 10:25 Urine color determination YELLOW NRG Urine clarity determination CLEAR NR G Urine pH measurement by test strip 6.0 5-9 Specific gravity of urine by test strip 1.025 1.016-1.022 Urine protein assay by test strip, semi-quantitative NEGATIVE NEGATIVE Urine glucose detection by automated test strip NE GATIVE NEGATIVE Erythrocytes detection in urine sediment by light micr oscopy 2+ NEGATIVE Urine ketones detection by automated test strip NE GATIVE NEGATIVE Urine nitrite detection by test strip NEGATIVE NEGATIVE Urine total bilirubin detection by test strip NEGA TIVE NEGATIVE Urine urobilinogen measurement by automated test strip (mass/volume) 2.0 mg/dL < = 1.0 Urine leukocyte esterase detection by dipstick NEG ATIVE NEGATIVE Automated urine sediment erythrocyte cou nt by microscopy (number/high power field) [HPF] NRG Automated urine sediment leukocyte count by microscopy (number/high power field) NONE NRG Bacteria detection in urine sediment by light microsco py NEGATIVE NRG Crystals detection in urine sediment by light microsco py NONE NRG Casts detection in urine sediment by light microscopy NONE NRG Mucus detection in urine sediment by light microscopy NEGATIVE NRG Complete urinalysis with reflex to culture NO NRG Coronavirus SARS-CoV-2 SO 2019 - 0 14:40 Coronavirus Ab [Units/volume] in Serum NOT DETECTE D Not Detecte Methicillin resistant Staphylococcus aur eus (MRSA) screening culture - 06/17/20 14:40 Methicillin resistant Staphylococcus aureus (MRSA) scr eening culture NEG NRG Capillary blood glucose measurement by g lucometer (mass/volume) - 06/17/20 17:41 Capillary blood glucose measurement by glucometer (mas s/volume) 177 mg/dL 70-110 Capillary blood glucose measurement by g lucometer (mass/volume) - 06/18/20 00:04 Capillary blood glucose measurement by glucometer (mas s/volume) 156 mg/dL 70-110 Complete blood count (CBC) with automate d white blood cell (WBC) differential - 06/18/20 05:17 Blood leukocytes automated count (number/volume) 15.7 10*3/uL 4.3-11.0 Blood erythrocytes automated count (number/volume) 5.17 10*6/uL 4.35-5.85 Venous blood hemoglobin measurement (mass/volume) 12.1 g/dL 13.3-17.7 Blood hematocrit (volume fraction) 37 % 40-54 Automated erythrocyte mean corpuscular volume 72 [ foz_us] 80-99 Automated erythrocyte mean corpuscular h emoglobin (mass per erythrocyte) 23 pg 25-34 Automated erythrocyte mean corpuscular h emoglobin concentration measurement (mass/volume) 32 g/dL 32-36 Automated erythrocyte distribution width ratio 19. 6 % 10.0- 14.5 Automated blood platelet count (count/volume) 284 10*3/uL 130-400 Automated blood platelet mean volume measurement 9.0 [foz_us] 7.4-10.4 Automated blood neutrophils/100 leukocytes 83 % 42-75 Automated blood lymphocytes/100 leukocytes 6 % 12-44 Blood monocytes/100 leukocytes 12 % 0-12 Automated blood eosinophils/100 leukocytes 0 % 0-10 Automated blood basophils/100 leukocytes 0 % 0-10 Blood neutrophils automated count (number/volume) 12.9 10*3 1.8-7.8 Blood lymphocytes automated count (number/volume) 0.9 10*3 1.0-4.0 Blood monocytes automated count (number/volume) 1. 8 10*3 0.0-1.0 Automated eosinophil count 0.0 10*3/uL 0 .0-0.3 Automated blood basophil count (count/volume) 0.0 10*3/uL 0.0-0.1 Comprehensive metabolic panel - 06/18/20 05:17 Serum or plasma sodium measurement (moles/volume) 134 mmol/L 135-145 Serum or plasma potassium measurement (moles/volume) 3.7 mmol/L 3.6-5.0 Serum or plasma chloride measurement (moles/volume) 104 mmol/L 98-107 Carbon dioxide 21 mmol/L 21-32 Serum or plasma anion gap determination (moles/volume) 9 mmol/L 5-14 Serum or plasma urea nitrogen measurement (mass/volume ) 14 mg/dL 7-18 Serum or plasma creatinine measurement (mass/volume) 0.99 mg/dL 0.60-1.30 Serum or plasma urea nitrogen/creatinine mass ratio 14 NRG Serum or plasma creatinine measurement w ith calculation of estimated glomerular filtration rate > NRG Serum or plasma glucose measurement (mass/volume) 171 mg/dL 70-105 Serum or plasma calcium measurement (mass/volume) 8.4 mg/dL 8.5-10.1 Serum or plasma total bilirubin measurement (mass/volu me) 1.4 mg/dL 0.1-1.0 Serum or plasma alkaline phosphatase delfina surement (enzymatic activity/volume) 34 U/L 40-136 Serum or plasma aspartate aminotransfera se measurement (enzymatic activity/volume) 17 U/L 5-34 Serum or plasma alanine aminotransferase measurement (enzymatic activity/volume) 17 U/L 0-55 Serum or plasma protein measurement (mass/volume) 6.4 g/dL 6.4-8.2 Serum or plasma albumin measurement (mass/volume) 3.5 g/dL 3.2-4.5 CALCIUM CORRECTED 8.8 mg/dL 8.5-10.1 Capillary blood glucose measurement by g lucometer (mass/volume) - 06/18/20 16:48 Capillary blood glucose measurement by glucometer (mas s/volume) 180 mg/dL 70-110 Automated blood complete blood count (he mogram) panel - 06/19/20 04:51 Blood leukocytes automated count (number/volume) 9.9 10*3/uL 4.3-11.0 Blood erythrocytes automated count (number/volume) 4.89 10*6/uL 4.35-5.85 Venous blood hemoglobin measurement (mass/volume) 11.3 g/dL 13.3-17.7 Blood hematocrit (volume fraction) 36 % 40-54 Automated erythrocyte mean corpuscular volume 73 [ foz_us] 80-99 Automated erythrocyte mean corpuscular h emoglobin (mass per erythrocyte) 23 pg 25-34 Automated erythrocyte mean corpuscular h emoglobin concentration measurement (mass/volume) 32 g/dL 32-36 Automated erythrocyte distribution width ratio 18. 8 % 10.0- 14.5 Automated blood platelet count (count/volume) 243 10*3/uL 130-400 Automated blood platelet mean volume measurement 9.1 [foz_us] 7.4-10.4 Comprehensive metabolic panel - 06/19/20 04:51 Serum or plasma sodium measurement (moles/volume) 136 mmol/L 135-145 Serum or plasma potassium measurement (moles/volume) 4.2 mmol/L 3.6-5.0 Serum or plasma chloride measurement (moles/volume) 103 mmol/L 98-107 Carbon dioxide 26 mmol/L 21-32 Serum or plasma anion gap determination (moles/volume) 7 mmol/L 5-14 Serum or plasma urea nitrogen measurement (mass/volume ) 15 mg/dL 7-18 Serum or plasma creatinine measurement (mass/volume) 1.11 mg/dL 0.60-1.30 Serum or plasma urea nitrogen/creatinine mass ratio 14 NRG Serum or plasma creatinine measurement w ith calculation of estimated glomerular filtration rate > NRG Serum or plasma glucose measurement (mass/volume) 186 mg/dL 70-105 Serum or plasma calcium measurement (mass/volume) 8.3 mg/dL 8.5-10.1 Serum or plasma total bilirubin measurement (mass/volu me) 1.2 mg/dL 0.1-1.0 Serum or plasma alkaline phosphatase delfina surement (enzymatic activity/volume) 30 U/L 40-136 Serum or plasma aspartate aminotransfera se measurement (enzymatic activity/volume) 30 U/L 5-34 Serum or plasma alanine aminotransferase measurement (enzymatic activity/volume) 38 U/L 0-55 Serum or plasma protein measurement (mass/volume) 5.9 g/dL 6.4-8.2 Serum or plasma albumin measurement (mass/volume) 3.0 g/dL 3.2-4.5 CALCIUM CORRECTED 9.1 mg/dL 8.5-10.1 Capillary blood glucose measurement by g lucometer (mass/volume) - 06/19/20 12:00 Capillary blood glucose measurement by glucometer (mas s/volume) 188 mg/dL 70-110 Capillary blood glucose measurement by g lucometer (mass/volume) - 06/19/20 16:20 Capillary blood glucose measurement by glucometer (mas s/volume) 181 mg/dL 70-110 Capillary blood glucose measurement by g lucometer (mass/volume) - 06/19/20 20:34 Capillary blood glucose measurement by glucometer (mas s/volume) 187 mg/dL 70-110 Automated blood complete blood count (he mogram) panel - 06/20/20 05:05 Blood leukocytes automated count (number/volume) 10.2 10*3/uL 4.3-11.0 Blood erythrocytes automated count (number/volume) 4.57 10*6/uL 4.35-5.85 Venous blood hemoglobin measurement (mass/volume) 10.6 g/dL 13.3-17.7 Blood hematocrit (volume fraction) 34 % 40-54 Automated erythrocyte mean corpuscular volume 74 [ foz_us] 80-99 Automated erythrocyte mean corpuscular h emoglobin (mass per erythrocyte) 23 pg 25-34 Automated erythrocyte mean corpuscular h emoglobin concentration measurement (mass/volume) 32 g/dL 32-36 Automated erythrocyte distribution width ratio 19. 1 % 10.0- 14.5 Automated blood platelet count (count/volume) 250 10*3/uL 130-400 Automated blood platelet mean volume measurement 9.1 [foz_us] 7.4-10.4 Comprehensive metabolic panel - 06/20/20 05:05 Serum or plasma sodium measurement (moles/volume) 137 mmol/L 135-145 Serum or plasma potassium measurement (moles/volume) 3.9 mmol/L 3.6-5.0 Serum or plasma chloride measurement (moles/volume) 104 mmol/L 98-107 Carbon dioxide 26 mmol/L 21-32 Serum or plasma anion gap determination (moles/volume) 7 mmol/L 5-14 Serum or plasma urea nitrogen measurement (mass/volume ) 14 mg/dL 7-18 Serum or plasma creatinine measurement (mass/volume) 1.02 mg/dL 0.60-1.30 Serum or plasma urea nitrogen/creatinine mass ratio 14 NRG Serum or plasma creatinine measurement w ith calculation of estimated glomerular filtration rate > NRG Serum or plasma glucose measurement (mass/volume) 146 mg/dL 70-105 Serum or plasma calcium measurement (mass/volume) 8.4 mg/dL 8.5-10.1 Serum or plasma total bilirubin measurement (mass/volu me) 0.8 mg/dL 0.1-1.0 Serum or plasma alkaline phosphatase delfina surement (enzymatic activity/volume) 34 U/L 40-136 Serum or plasma aspartate aminotransfera se measurement (enzymatic activity/volume) 16 U/L 5-34 Serum or plasma alanine aminotransferase measurement (enzymatic activity/volume) 28 U/L 0-55 Serum or plasma protein measurement (mass/volume) 6.1 g/dL 6.4-8.2 Serum or plasma albumin measurement (mass/volume) 2.9 g/dL 3.2-4.5 CALCIUM CORRECTED 9.3 mg/dL 8.5-10.1 Encounters ACCT No. Visit Date/Time Discharge Status Pt. Type Provider Facility Loc./Unit Complaint [id number] 04/04/2017 08:35:00 Document Registration [id number] 07/31/2016 08:06:00 Document Registration [id number] 06/15/2020 08:30:00 06/15/2020 23:59: 59 [facility] Outpatient GERMAN BUSTILLO APRN [facility] [id number] 12/16/2019 08:40:00 Document Registration [id number] 08/20/2017 14:20:00 Document Registration [id number] 06/17/2020 12:42:00 13:35:00 DIS Inpatient PARISA REDD DO [facility] 4TH ACUTE CHOLECYSTITIS [id number] 01/05/2020 11:40:00 15:45:00 DIS Outpatient PARISA REDD DO [facility] SDC BACK MASSES [id number] 01/04/2020 13:03:00 13:16:00 DIS Outpatient PARISA REDD DO [facility] PREOP BACK MASSES [id number] 12/30/2019 07:21:00 020 23:59:59 CLS Outpatient ZUNILDA LOUISE APRN [facility] RT COUGH [id number] 12/13/2018 17:50:00 019 16:00:00 DIS Outpatient MANINDER SZYMANSKI MD [facility] SDC ANEMIA [id number] 02/15/2018 07:30:00 018 23:59:59 CLS Outpatient SHANIA CHÁVEZ MD [facility] RAD I82.812 ACUTE SUPERFICI AL VENOUS THROMBOSIS [id number] 02/12/2018 11:46:00 018 23:59:59 CLS Outpatient SHANIA CHÁEVZ MD [facility] LAB I82.812 [id number] 02/10/2018 13:07:00 018 23:59:59 CLS Outpatient ISABELA SMITH APRN [facility] RAD M79.89 OTHER SP ECIFIED SOFT TISSUE DISORDERS [id number] 01/21/2018 20:40:00 018 06:25:00 DIS Outpatient MIR VELEZ APRN [facility] SLEEP OBSTRUCTIVE SLEEP APNE A [id number] 01/02/2018 20:45:00 018 06:15:00 DIS Outpatient GERMAN BUSTILLO [facility] SLEEP G47.33 EMIR [id number] 07/17/2016 12:48:00 016 15:43:00 DIS Outpatient CHUCK MAGDALENO MD [facility] REHAB COMP ROTATOR CUFF TEAR OR RUPTURE R SHOULDER [id number] 04/23/2016 08:09:00 016 13:50:00 DIS Outpatient CHUCK MAGDALENO MD [facility] [facility] RIGHT TORN ROTATOR CUF F [id number] 04/16/2016 12:46:00 016 13:30:00 DIS Outpatient CHUCK MAGDALENO MD [facility] PREOP RIGHT TORN ROTATOR CUF F [id number] 04/02/2016 13:35:00 016 14:30:00 DIS Outpatient CHUCK MAGDALENO MD [facility] REHAB COMPLETER ROTATOR CUFF TEAR [id number] 02/21/2016 10:39:00 016 23:59:59 CLS Outpatient GERMAN BUSTILLO [facility] RAD RIGHT SHOULDER PAIN [id number] 04/06/2015 19:58:00 015 07:10:00 DIS Outpatient GERMAN BUSTILLO [facility] SLEEP OBSERVED APNEAS OBSTRU CTIVE SLEEP APNEAS [id number] 02/27/2015 19:39:00 015 06:13:00 DIS Outpatient GERMAN BUSTILLO [facility] SLEEP OBSERVED APNEAS SNORIN G CHOKING GASPING [id number] 06/21/2020 14:00:00 P EN PreadROSMERY Mireles MD [facility] CARD CHEST PAIN [id number] 01/31/2013 08:28:00 Document Registration [id number] 01/27/2013 08:09:00 Document Registration [id number] 03/05/2015 09:47:00 03/05/2015 23:59: 59 CLS Outpatient GERMAN BUSTILLO APRN [id number] 02/02/2015 08:45:00 02/02/2015 23:59: 59 CLS Outpatient GERMAN BUSTILLO APRN [id number] 12/06/2014 15:48:00 12/06/2014 23:59: 59 CLS Outpatient GERMAN BUSTILLO APRN [id number] 10/25/2014 17:20:00 10/25/2014 23:59: 59 CLS Outpatient GERMAN BUSTILLO APRN [id number] 07/28/2014 10:50:00 07/28/2014 23:59: 59 CLS Outpatient GERMAN BUSTILLO APRN [id number] 05/31/2014 09:53:00 05/31/2014 23:59: 59 CLS Outpatient GERMAN BUSTILLO APRN [id number] 04/05/2014 09:48:00 04/05/2014 23:59: 59 CLS Outpatient MARIA G LEGER DO [id number] 01/18/2014 08:08:00 01/18/2014 23:59: 59 CLS Outpatient GERMAN BUSTILLO APRN [id number] 01/11/2014 16:13:00 01/11/2014 23:59: 59 CLS Outpatient GERMAN BUSTILLO APRN [id number] 12/13/2013 11:59:00 12/13/2013 23:59: 59 CLS Outpatient MARIA G LEGER DO [id number] 10/17/2013 16:01:00 10/17/2013 23:59: 59 CLS Outpatient GERMAN BUSTILLO APRN [id number] 08/03/2013 09:57:00 08/03/2013 23:59: 59 CLS Outpatient JOYCE SIMMONS PHD [id number] 02/15/2013 14:19:00 02/15/2013 23:59: 59 CLS Outpatient [id number] 01/10/2013 08:58:00 01/10/2013 23:59: 59 CLS Outpatient [id number] 12/23/2012 09:48:00 12/23/2012 23:59: 59 CLS Outpatient GHASSAN PIÑA MD [id number] 11/23/2012 13:47:00 11/23/2012 23:59: 59 CLS Outpatient [id number] 08/17/2012 13:50:00 08/17/2012 23:59:5 9 CLS Outpatient [id number] 07/13/2013 09:51:00 Document Registration [id number] 06/22/2013 09:59:00 Document Registration [id number] 04/07/2013 16:04:00 Document Registration [id number] 03/15/2013 13:53:00 Document Registration [id number] 02/17/2013 14:48:00 Document Registration [id number] 08/21/2017 13:05:00 Document Registration
--- OUTSIDE RECORDS SUMMARY | 2020-06-21 11:35 | XMS REPORT | Continuity of Care Document ---
Demographics Preferred Language Unknown Marital Status Unknown Rastafarian Affiliation Unknown Race Unknown Ethnic Group Unknown Author Organization Unknown Address Unknown Phone Unavailable Allergies Active Description Code Type Severity Reaction Onset Reported/Identified Relationship to Patient Clinical Status Yes No Known Drug Allergies [id number] Drug Allergy Unknown N/A 01/04/2020 Medications There is no data. Problems Date Dx Coded Attending Type Code Diagnosis Diagnosed By 10/08/1542 SHARLA QUEVEDO, CUHCK Bustillos Ot M25.511 PAIN IN RIGHT SHOULDER [...] 535.50 GAS TRITIS UNSPEC 07/09/2012 AYANA QUEVEDO, HGASSAN Clay 535.50 GASTRITIS UNSPEC 07/09/2012 535.50 GAS [...] APRN 300.00 AN ANXIETY UNSPEC 02/17/2013 IWONA TICKER MAINTAINER, GERMAN T 31 1 DEPRESSIVE DISORDER NOS [...] 72 4.2 BACK PAIN, LOWER 10/25/2014 IWONA TICKER MAINTAINER GERMAN T 72 4.2 BACK PAIN, LOWER [...] Ot 401.9 HYPERTENSION NOS 04/07/2015 GERMAN BUSTILLO FIREFIGHTER TYPE ONE Ot 327.23 OBSTRUCTIVE SLEEP APNEA (ADULT) (PEDIATR 02/21/2016 Ot V72.84 02/21/2016 GERMAN BUSTILLO FIREFIGHTER TYPE ONE Ot M25.511 02/22/2016 GERMAN BUSTILLOP Ot M25.511 [...] M PRE- OPERATIVE NOS 11/20/2016 GERMAN BUSTILLO FIREFIGHTER TYPE ONE Ot M25.511 PAIN IN RIGHT SHOULDER 11/20/2016 GERMAN BUSTILLO FIREFIGHTER TYPE ONE Ot M25.511 PAIN IN RIGHT SHOULDER 12/30/2017 GERMAN BUSTILLO FIREFIGHTER TYPE ONE Ot G47.33 OBSTRUCTIVE SLEEP APNEA (ADULT) (PEDIATR 12/31/2017 GERMAN BUSTILLO FIREFIGHTER TYPE ONE Ot G47.33 OBSTRUCTIVE SLEEP APNEA (ADULT) (PEDIATR 12/31/2017 Ot V72.84 EXA M PRE- OPERATIVE NOS 12/31/2017 GERMAN BUSTILLO FIREFIGHTER TYPE ONE Ot M25.511 PAIN IN RIGHT SHOULDER 12/31/2017 GERMAN BUSTILLO FIREFIGHTER TYPE ONE Ot G47.33 OBSTRUCTIVE SLEEP APNEA (ADULT) (PEDIATR 01/02/2018 Ot V72.84 EXA M PRE- OPERATIVE NOS 01/02/2018 GERMAN BUSTILLO FIREFIGHTER TYPE ONE Ot M25.511 PAIN IN RIGHT SHOULDER 01/02/2018 GERMAN BUSTILLO FIREFIGHTER TYPE ONE Ot G47.33 OBSTRUCTIVE SLEEP APNEA (ADULT) (PEDIATR 01/03/2018 GERMAN BUSTILLO FIREFIGHTER TYPE ONE Ot G47.10 HYPERSOMNIA, UNSPECIFIED 01/03/2018 GERMAN BUSTILLO FIREFIGHTER TYPE ONE Ot G47.33 OBSTRUCTIVE SLEEP APNEA (ADULT) (PEDIATR 01/03/2018 GERMAN BUSTILLO FIREFIGHTER TYPE ONE Ot R06.83 SNORING 01/05/2018 GERMAN BUSTILLO FIREFIGHTER TYPE ONE Ot G47.10 HYPERSOMNIA, UNSPECIFIED 01/05/2018 GERMAN BUSTILLO FIREFIGHTER TYPE ONE Ot G47.33 OBSTRUCTIVE SLEEP APNEA (ADULT) (PEDIATR 01/05/2018 GERMAN BUSTILLO FIREFIGHTER TYPE ONE Ot R06.83 SNORING 01/10/2018 GERMAN BUSTILLO FIREFIGHTER TYPE ONE Ot G47.10 HYPERSOMNIA, UNSPECIFIED 01/10/2018 GERMAN BUSTILLO FIREFIGHTER TYPE ONE Ot G47.33 OBSTRUCTIVE SLEEP APNEA (ADULT) (PEDIATR 01/10/2018 GERMAN BUSTILLO FIREFIGHTER TYPE ONE Ot R06.83 SNORING 01/18/2018 MIR VELEZ TICKER MAINTAINER Ot G47.33 OBSTRUCTIVE SLEEP APNEA (ADULT) (PEDIATR 01/22/2018 MIR VELEZ TICKER MAINTAINER Ot G47.33 OBSTRUCTIVE SLEEP APNEA (ADULT) (PEDIATR 01/22/2018 MIR VELEZ TICKER MAINTAINER Ot G47.33 OBSTRUCTIVE SLEEP APNEA (ADULT) (PEDIATR [...] ABNORMALITIES 12/15/2018 MANINDER SZYMANSKI MD Ot Z79.82 CARE HOME (CURRENT) USE OF ASPIRIN 12/15/2018 MANINDER SZYMANSKI MD, Ot Z79.84 CARE HOME (CURRENT) USE OF ORAL HYPOGLYC 12/15/2018 MANINDER SZYMANSKI MD, Ot Z79.899 OTHER CARE HOME (CURRENT) DRUG THERAPY 12/15/2018 MANINDER SZYMANSKI MD, [...] ABNORMALITIES 12/22/2018 MANINDER SZYMANSKI MD, Ot Z79.82 CARE HOME (CURRENT) USE OF ASPIRIN 12/22/2018 MANINDER SZYMANSKI MD, Ot Z79.84 CARE HOME (CURRENT) USE OF ORAL HYPOGLYC 12/22/2018 MANINDER SZYMANSKI MD, Ot Z79.899 OTHER CARE HOME (CURRENT) DRUG THERAPY 12/22/2018 MANINDER SZYMANSKI MD, [...] OF KIDNEY AND URETER, UNSPECIFI 12/22/2018 MANINDER SYZMANSKI MD, Ot N40 .0 BENIGN PROSTATIC HYPERPLASIA WITHOUT LOW 12/22/2018 MANINDER SZYMANSKI MD Ot R19 .5 OTHER FECAL ABNORMALITIES 12/22/2018 MANINDER SZYMANSKI MD, Ot Z79.82 CARE HOME (CURRENT) USE OF ASPIRIN 12/22/2018 MANINDER SZYMANSKI MD, Ot Z79.84 WINCH OPERATOR (CURRENT) USE OF ORAL HYPOGLYC 12/22/2018 MANINDER SZYMANSKI MD, Ot Z79.899 OTHER CARE HOME (CURRENT) DRUG THERAPY 12/22/2018 MANINDER SZYMANSKI MD, [...] ABNORMALITIES 12/23/2018 MANINDER SZYMANSKI MD, Ot Z79.82 WINCH OPERATOR (CURRENT) USE OF ASPIRIN 12/23/2018 MANINDER SZYMANSKI MD Ot Z79.84 CARE HOME (CURRENT) USE OF ORAL HYPOGLYC 12/23/2018 MANINDER SZYMANSKI MD Ot Z79.899 OTHER WINCH OPERATOR (CURRENT) DRUG THERAPY 12/23/2018 MANINDER SZYMANSKI MD [...] 01/05/2020 PARISA REDD DO Ot Z79. 84 CARE HOME (CURRENT) USE OF ORAL HYPOGLYC 01/05/2020 PARISA REDD DO Ot Z79.899 OTHER CARE HOME (CURRENT) DRUG THERAPY 01/05/2020 PARISA REDD DO [...] 01/10/2020 PARISA REDD DO Ot Z79. 84 WINCH OPERATOR (CURRENT) USE OF ORAL HYPOGLYC 01/10/2020 PARISA REDD DO Ot Z79.899 OTHER WINCH OPERATOR (CURRENT) DRUG THERAPY 01/10/2020 PARISA REDD DO [...] 01/12/2020 PARISA REDD DO Ot Z79. 84 CARE HOME (CURRENT) USE OF ORAL HYPOGLYC 01/12/2020 PARISA REDD DO Ot Z79.899 OTHER CARE HOME (CURRENT) DRUG THERAPY 01/12/2020 PARISA REDD DO Ot Z98. 84 BARIATRIC SURGERY STATUS 02/25/2020 ZUNILDA LOUISE APRN Ot G47.33 OBSTRUCTIVE SLEEP APNEA (ADULT) (PEDIATR 02/25/2020 ZUNILDA LOUISE APRN Ot J30.9 ALLERGIC RHINITIS, UNSPECIFIED 02/25/2020 ZUNILDA LOUISE APRN Ot J44.9 CHRONIC OBSTRUCTIVE PULMONARY DISEASE, U 02/25/2020 ZUNILDA LOUISE TICKER MAINTAINER Ot R91.8 OTHER NONSPECIFIC ABNORMAL FINDING OF KINDRA 03/01/2020 ZUNILDA LOUISE APRN Ot G47.33 OBSTRUCTIVE SLEEP APNEA (ADULT) (PEDIATR 03/01/2020 DANIZUNILDA SANCHEZ APRN Ot J30.9 ALLERGIC RHINITIS, UNSPECIFIED 03/01/2020 DANIZUNILDA SANCHEZ TICKER MAINTAINER Ot J44.9 CHRONIC OBSTRUCTIVE PULMONARY DISEASE, U 03/01/2020 DANIZUNILDA SANCHEZ TICKER MAINTAINER Ot R91.8 OTHER NONSPECIFIC ABNORMAL FINDING OF KINDRA 03/28/2020 ZUNILDA LOUISE APRN Ot G47.33 OBSTRUCTIVE SLEEP [...] 06/20/2020 PARISA REDD DO Ot Z79. 84 CARE HOME (CURRENT) USE OF ORAL HYPOGLYC 06/20/2020 PARISA REDD DO Ot Z98. 84 BARIATRIC SURGERY STATUS Procedures Code Description [place] [address] A1C (IN-HOUSE) 11/23/2012 Ghassan Bowers 12/23/2012 29494 TSH 01/10/2013 07951 CBC 01/10/2013 16133 CMP 01/10/2013 29021 LIPI D PANEL 01/10/2013 3072559 GF R CALC (RESULT ONLY) 01/10/2013 44339 PSYC H DIAGNOSTIC EVALUATION 02/21/2013 85279 A1C (IN-HOUSE) 03/15/2013 70803 PSYT X PT&/FAMILY 45 MINUTES 04/08/2013 21264 PSYT X PT&/FAMILY 45 MINUTES 06/23/2013 55467 PSYT X PT&/FAMILY 45 MINUTES 07/14/2013 61417 PSYT X PT&/FAMILY 45 MINUTES 08/04/2013 65020 A1C (IN-HOUSE) 10/17/2013 52653 ROUT INE VENIPUNCTURE 01/18/2014 14652 CMP 01/18/2014 91284 LIPI D PANEL 01/18/2014 52745 PSA TOTAL 01/18/2014 12764 A1C (IN-HOUSE) 01/18/2014 17945 CBC 01/18/2014 97217 XRAY CHEST 2 VIEW 04/05/2014 61241 A1C (IN-HOUSE) 07/28/2014 43405 SLEE P STUDY (HOSPITAL- SLEEP STUDY) 02/02/2015 G0102 PROS ALAN CA SCREENING; FELISA 02/02/2015 23608 A1C (IN-HOUSE) 02/02/2015 13235 MICR O ALBUMIN-IN HOUSE 02/02/2015 [id number] RE SECTION OF GALLBLADDER, PERCUTANEOUS E 06/18/2020 [id number] FL UOROSCOPY OF BILE DUCTS USING LOW [...] % 40-54 Whole blood hemoglobin and hematocrit [facility] - 12/14/18 00:17 Venous blood hemoglobin measurement (mass/volume) 9.0 g/dL 13.3-17.7 Blood hematocrit (volume fraction) 28 % 40-54 Whole blood hemoglobin and hematocrit [facility] - 12/14/18 04:15 Venous blood hemoglobin measurement [...] Pathologist review of blood test by [facility] - 12/14/18 04:15 Blood leukocytes automated count [...] Status Pt. Type Provider Facility Loc./Unit Complaint [id number] 04/04/2017 08:35:00 Document Registration [id number] 07/31/2016 08:06:00 Document Registration [id number] 06/15/2020 08:30:00 06/15/2020 23:59: 59 [facility] Outpatient GERMAN BUSTILLO APRN [facility] [id number] 12/16/2019 08:40:00 Document Registration [id number] 08/20/2017 14:20:00 Document Registration [id number] 06/17/2020 12:42:00 13:35:00 DIS Inpatient PARISA REDD DO [facility] 4TH ACUTE CHOLECYSTITIS [id number] 01/05/2020 11:40:00 15:45:00 DIS Outpatient PARISA REDD DO [facility] SDC BACK MASSES [id number] 01/04/2020 13:03:00 13:16:00 DIS Outpatient PARISA REDD DO [facility] PREOP BACK MASSES [id number] 12/30/2019 07:21:00 020 23:59:59 CLS Outpatient ZUNILDA LOUISE APRN [facility] RT COUGH [id number] 12/13/2018 17:50:00 019 16:00:00 DIS Outpatient MANINDER SZYMANSKI MD [facility] SDC ANEMIA [id number] 02/15/2018 07:30:00 018 23:59:59 CLS Outpatient SHANIA CHÁVEZ MD [facility] RAD I82.812 ACUTE SUPERFICI AL VENOUS THROMBOSIS [id number] 02/12/2018 11:46:00 018 23:59:59 CLS Outpatient SHANIA CHÁVEZ MD [facility] LAB I82.812 [id number] 02/10/2018 13:07:00 018 23:59:59 CLS Outpatient ISABELA SMITH APRN [facility] RAD M79.89 OTHER SP ECIFIED SOFT TISSUE DISORDERS [id number] 01/21/2018 20:40:00 018 06:25:00 DIS Outpatient MIR VELEZ APRN [facility] SLEEP OBSTRUCTIVE SLEEP APNE A [id number] 01/02/2018 20:45:00 018 06:15:00 DIS Outpatient GERMAN BUSTILLO [facility] SLEEP G47.33 EMIR [id number] 07/17/2016 12:48:00 016 15:43:00 DIS Outpatient CHUCK MAGDALENO MD [facility] REHAB COMP ROTATOR CUFF TEAR OR RUPTURE R SHOULDER [id number] 04/23/2016 08:09:00 016 13:50:00 DIS Outpatient CHUCK MAGDALENO MD [facility] RIGHT TORN ROTATOR CUF F [id number] 04/16/2016 12:46:00 016 13:30:00 DIS Outpatient CHUCK MAGDALENO MD [facility] PREOP RIGHT TORN ROTATOR CUF F [id number] 04/02/2016 13:35:00 016 14:30:00 DIS Outpatient CHUCK MAGDALENO MD [facility] REHAB COMPLETER ROTATOR CUFF TEAR [id number] 02/21/2016 10:39:00 016 23:59:59 CLS Outpatient GERMAN BUSTILLO [facility] RAD RIGHT SHOULDER PAIN [id number] 04/06/2015 19:58:00 015 07:10:00 DIS Outpatient GERMAN BUSTILLO [facility] SLEEP OBSERVED APNEAS OBSTRU CTIVE SLEEP APNEAS [id number] 02/27/2015 19:39:00 015 06:13:00 DIS Outpatient GERMAN BUSTILLO [facility] SLEEP OBSERVED APNEAS SNORIN G CHOKING GASPING [id number] 06/21/2020 14:00:00 P EN PreadROSMERY Mireles MD Via [facility] CARD CHEST PAIN [id number] 01/31/2013 08:28:00 Document Registration [id number] 01/27/2013 08:09:00 Document Registration [id number] 03/05/2015 09:47:00 03/05/2015 23:59: 59 CLS Outpatient GERMAN BUSTILLO APRN [id number] 02/02/2015 08:45:00 02/02/2015 23:59: 59 CLS Outpatient GERMAN BUSTILLO APRN [id number] 12/06/2014 15:48:00 12/06/2014 23:59: 59 CLS Outpatient GERMAN BUSTILLO APRN [id number] 10/25/2014 17:20:00 10/25/2014 23:59: 59 CLS Outpatient GERMAN BUSTILLO APRN [id number] 07/28/2014 10:50:00 07/28/2014 23:59: 59 CLS Outpatient GERMAN BUSTILLO APRN [id number] 05/31/2014 09:53:00 05/31/2014 23:59: 59 CLS Outpatient GERMAN BUSTILLO APRN [id number] 04/05/2014 09:48:00 04/05/2014 23:59: 59 CLS Outpatient MARIA G LEGER DO [id number] 01/18/2014 08:08:00 01/18/2014 23:59: 59 CLS Outpatient GERMAN BUSTILLO APRN [id number] 01/11/2014 16:13:00 01/11/2014 23:59: 59 CLS Outpatient GERMAN BUSTILLO APRN [id number] 12/13/2013 11:59:00 12/13/2013 23:59: 59 CLS Outpatient MARIA G LEGER DO [id number] 10/17/2013 16:01:00 10/17/2013 23:59: 59 CLS Outpatient GERMAN BUSTILLO APRN [id number] 08/03/2013 09:57:00 08/03/2013 23:59: 59 CLS Outpatient JOYCE SIMMONS PHD [id number] 02/15/2013 14:19:00 02/15/2013 23:59: 59 CLS Outpatient [id number] 01/10/2013 08:58:00 01/10/2013 23:59: 59 CLS Outpatient [id number] 12/23/2012 09:48:00 12/23/2012 23:59: 59 CLS Outpatient GHASSAN PIÑA MD [id number] 11/23/2012 13:47:00 11/23/2012 23:59: 59 CLS Outpatient [id number] 08/17/2012 13:50:00 08/17/2012 23:59:5 9 CLS Outpatient [id number] 07/13/2013 09:51:00 Document Registration [id number] 06/22/2013 09:59:00 Document Registration [id number] 04/07/2013 16:04:00 Document Registration [id number] 03/15/2013 13:53:00 Document Registration [id number] 02/17/2013 14:48:00 Document Registration [id number] 08/21/2017 13:05:00 Document Registration
== END 2020-06-20 13:35 | disposition home or self-care (01) ==
LOC: EDUNIT# 08:33 → ER 08:34 → SDC 12:42 → 4TH 12:42 → UNDOADMOB 12:42 → INTOOBSV 12:42 → 4TH 12:42 → SDC 06-18 15:59 → 4TH 06-18 16:00 → UNDODISOB 06-20 13:35
PROVIDERS: ADMIT Surgery; ATTEND Surgery
DX: K80.12 Calculus of gallbladder with acute and chronic cholecystitis without obstruction (principal); K82.8 Other specified diseases of gallbladder; I10 Essential (primary) hypertension; J43.9 Emphysema, unspecified; E78.00 Pure hypercholesterolemia, unspecified; E11.9 Type 2 diabetes mellitus without complications; K21.9 Gastro-esophageal reflux disease without esophagitis; G47.33 Obstructive sleep apnea (adult) (pediatric); K59.09 Other constipation; F32.9 Major depressive disorder, single episode, unspecified; E66.9 Obesity, unspecified; M19.91 Primary osteoarthritis, unspecified site; Z79.84 Long term (current) use of oral hypoglycemic drugs; Z68.38 Body mass index [BMI] 38.0-38.9, adult; Z98.84 Bariatric surgery status; Z87.891 Personal history of nicotine dependence
CPT/HCPCS: 47563; 74177; 76000; 80053 ×4; 81000; 82962 ×2; 83690; 85007; 85025; 85027 ×3; 86141; 87081; 94640 ×3; 94660; 94664 ×3; 94760 ×3; 99284; G0378; U0002; 36415; 87635

== ENCOUNTER → 2020-08-08 | Outpatient (CLI) | payer MEDICARE ==
[~2020-08-08] VITALS: Ht 178 cm; Wt 114.0 kg
[~2020-08-08] MED LIST changes: +AMOX-358 PO; +ASPI-1238 PO; -ASPI-983 PO; +CALC-880 PO; +CATHETER FLUSH 10 ML SYR IV PRN; +FLUT1BLS PO; +HYDR-4226 PO; +MONT10TA26 PO; -PANT40TA3 PO; +PANT40TA52 PO; +POLY17PO6 PO; +REGADENOSON 0.4 MG/5 ML SYR (LEXISCAN) IV ONE
[2020-08-08 12:46] VITALS: BP 145/83
--- NOTE | 2020-08-08 14:16 | Cardiology Stress Test Report ---
Stress Test Report Date of Procedure/Referring: Date of Procedure: Aug 08, 2020 PCP Rosmery Villarreal MD Admitting Physician [place]/Count Includes [facility] Indications: CP Baseline Heart Rate: 57 Baseline Blood Pressure: Blood Pressure Systolic: 145 Blood Pressure Diastolic: 83 Vital Signs Date Time Temp Pulse Resp B/P (MAP) Pulse Ox O2 Delivery O2 Flow Rate FiO2 08/08/20 12:46 58 16 145/83 (103) 97 Room Air Baseline Vital Signs Vital Signs Date Time Temp Pulse Resp B/P (MAP) Pulse Ox O2 Delivery O2 Flow Rate FiO2 08/08/20 12:46 58 16 145/83 (103) 97 Room Air Baseline EKG: Baseline EKG: NSR Summary: After explaining the procedure and details to the patient, he signed the consent and was brought to the stress nuclear laboratory. Patient exercised on standard [facility] protocol, EKG, heart rate and blood pressure were monitored continuously, resting and stress doses of radio tracer were injected, imaging was acquired and reviewed in the short axis, horizontal long axis and vertical long axis views Patient was able to exercise for a total of 4:25 minutes on [facility] protocol, METs 6.2 Maximum heart rate 144 Maximum blood pressure 187/84 Stress EKG, Minimal nondiagnostic changes Recovery EKG, Return to baseline TID: 0.97 SSS: 11 SDS: 6 EF: 58 Conclusion: 1. Fair exercise tolerance for 4 minutes 25 seconds on [facility] protocol total of 6.2 METs achieving 96 percent of maximum expected heart rate 2. Appropriate heart rate response with hypertensive response to exercise returned to baseline during recovery 3. Minimal nondiagnostic EKG changes with exercise returned to baseline during recovery 4. Decreased uptake involving the whole inferior wall, inferoseptum and inferolateral wall with mild reversibility suggestive of ischemia 5. Normal left ventricular size, EF 58 percent ROSMERY VILLARREAL MD Aug 08, 2020 14:16
== END ==
LOC: CARD 12:00
PROVIDERS: ATTEND Internal Medicine Cardiovascular Disease
DX: I10 Essential (primary) hypertension (principal); E11.9 Type 2 diabetes mellitus without complications; R07.9 Chest pain, unspecified; R06.02 Shortness of breath
CPT/HCPCS: 78452; 93017; 93306; A9502

== ENCOUNTER → 2020-08-20 | Outpatient (CLI) | payer MEDICARE ==
[~2020-08-20] MED LIST changes: -CATHETER FLUSH 10 ML SYR IV PRN; -REGADENOSON 0.4 MG/5 ML SYR (LEXISCAN) IV ONE
== END ==
LOC: LABNPT 05:39
PROVIDERS: ATTEND Internal Medicine Cardiovascular Disease
DX: Z01.812 Encounter for preprocedural laboratory examination (principal); Z20.828 Contact with and (suspected) exposure to other viral communicable diseases
CPT/HCPCS: 87635

== ENCOUNTER → 2020-09-10 | Outpatient (CLI) | payer MEDICARE ==
[~2020-09-10] MED LIST changes: +AMLO-250 PO; -AMLO5TAB9 PO; +PANT40TA2 PO
== END ==
LOC: LABNPT 05:30
PROVIDERS: ATTEND Internal Medicine Cardiovascular Disease
DX: Z53.9 Procedure and treatment not carried out, unspecified reason (principal)

== ENCOUNTER 2020-09-12 06:56 | Day surgery (SDC) | payer MEDICARE ==
[~2020-09-12] VITALS: Ht 170 cm; Wt 116.0 kg
[2020-09-12] VITALS (10 sets, daily range): BP systolic 113–160; BP diastolic 70–100
[~2020-09-12 06:56] MED LIST changes: -PANT40TA2 PO
[2020-09-12] MEDS ORDERED: NS IV 1000 ML 1,000 ML ONE (07:05)
[2020-09-12] MEDS ORDERED: LIDOCAINE 1% INJ 20 ML 20 ML VIAL ONE (07:05)
[2020-09-12] MEDS ORDERED: HEParin (CATH LAB) 2,000 ML IV ONE (07:05)
[2020-09-12] MEDS ORDERED: NS IV 1000 ML 1,000 ML IV SCH ×2 (07:15→10:05)
[2020-09-12 07:34] LABS: HEMOGLOBIN 12.7 g/dL (13.3-17.7); MEAN PLATELET VOLUME 8.9 fL (9.0-12.2); WHITE BLOOD COUNT 6.7 10^3/uL (4.3-11.0)
[2020-09-12 07:47] LABS: PROTHROMBIN TIME PATIENT 13.4 SEC (12.2-14.7)
--- NOTE | 2020-09-12 07:50 | Diagnostic Imaging Report ---
INDICATION: Abnormal stress test. Chest pain. Comparison with CT chest of 12/30/2019. FINDINGS: Portable exam. The lungs are well-aerated. No infiltrates have developed. Heart is not enlarged. No pulmonary edema or hilar adenopathy. No pneumothorax or pleural effusion. IMPRESSION: No acute changes have developed since previous CT scan. Dictated by: Dictated on workstation # [id number]
[2020-09-12 07:59] LABS: ALANINE AMINOTRANSFERASE 14 U/L (0-55); ALBUMIN 4.2 GM/DL (3.2-4.5); ALKALINE PHOSPHATASE 47 U/L (40-136); BILIRUBIN,TOTAL 0.6 MG/DL (0.1-1.0); BUN/CREATININE RATIO 19; CALCIUM 9.4 MG/DL (8.5-10.1); CARBON DIOXIDE 27 MMOL/L (21-32); CHLORIDE 103 MMOL/L (98-107); CHOLESTEROL 179 MG/DL (< 200); CREATININE SERUM 1.06 MG/DL (0.60-1.30); GFR ESTIMATED > 60; GLUCOSE 122 MG/DL (70-105); HDL CHOLESTEROL 47 MG/DL (40-60); SODIUM 140 MMOL/L (135-145); TOTAL PROTEIN 7.4 GM/DL (6.4-8.2); TRIGLYCERIDES 97 MG/DL (<150); VLDL CHOLESTEROL 19 MG/DL (5-40)
[2020-09-12] MEDS ORDERED: QUET100T PO (08:40)
[2020-09-12] MEDS ORDERED: ACHD5005 PO (08:42)
[2020-09-12] MEDS ORDERED: PANT40TA2 PO (08:42)
[2020-09-12] MEDS ORDERED: ASPI-1238 PO (08:42)
[2020-09-12] MEDS ORDERED: LORA10TA7 PO (08:42)
[2020-09-12] MEDS ORDERED: GABA-486 PO (08:44)
[2020-09-12] MEDS ORDERED: MIDAZOLAM 5 MG/5 ML (VERSED) VIAL ONE (09:13)
[2020-09-12] MEDS ORDERED: fentaNYL INJECTION 100 MCG/2 ML AMP ONE (09:13)
--- NOTE | 2020-09-12 09:18 | NUR ---
SPOKE WITH THE PT (HE HAD A MED LIST BUT NOT HIS MED BOTTLES) AND CALLED [facility] TO COMPLETE THE MED REC 12-15-2019 GABAPENTIN 100MG #90/PRN 02-09-2020 NORCO 5/325MG #30/PRN 06-15-2020 METFORMIN 500MG #270/90DS 07-26-2020 GLIPIZIDE 5MG #180/90DS 20 AMLODIPINE 5MG #90/90DS 08-30-2020 PANTOPRAZOLE 40MG #30/30DS 08-30-2020 MONTELUKAST 10MG #30/30DS 08-30-2020 QUETIAPINE 100MG #90/30DS 08-30-2020 QUETIAPINE 300MG #30/30DS 08-30-2020 DESVENLAFAXINE 100MG #30/30DS OTC MEDS: ASPIRIN 81 DOCUSATE LORATADINE MELATONIN
--- NOTE | 2020-09-12 09:23 | Cardiac Procedure Note-CS/ASA ---
Pre-Procedure Note Pre-Op Procedure Note H&P Reviewed The H&P was reviewed, patient examined and no changes noted. Date H&P Reviewed: Sep 12, 2020 Time H&P Reviewed: 09:23 Conscious Sedation Pre-Proced Time 09:23 ASA Score 3 For ASA 3 and 4: Consider anesthesia and medical clearance. Also, for patients with a history of failed moderate sedation consider anesthesia. Airway Lungs Heart ASA score ASA 1: a normal healthy patient ASA 2: a patient with a mild systemic disease (mid diabetes, controlled hypertension, obesity x ASA 3: a patient with a severe systemic disease that limits activity (angina, COPD, prior Myocardial infarction) ASA 4: a patient with an incapacitating disease that is a constant threat to life (CHF, renal failure) ASA 5: a moribund patient not expected to survive 24 hrs. (ruptured aneurysm) ASA 6: a declared brain- patient whose organs are being harvested. For emergent operations, add the letter E after the classification Mallampati Classification Grade 3 Sedation Plan Analgesia, Amnesia, Plan communicated to team members, Discussed options with patient/fam, Discussed risks with patient/fam The patient is an appropriate candidate to undergo the planned procedure, sedation, and anesthesia. The patient immediately re-assessed prior to indication. ROSMERY ZUÑIGA MD Sep 12, 2020 09:23
[2020-09-12] MEDS ORDERED: METF-397 PO (10:06)
--- NOTE | 2020-09-12 10:07 | Discharge Inst-Post CATH ---
Discharge Inst-CATH/EP Problems Reviewed?: Yes Post Cardiac Cath/EP D/C Inst Follow Up/Plan Hold metformin for [address] Villarreal's office in 2-4 weeks <b>CARDIAC CATH/EP PROCEDURE DISCHARGE INSTRUCTIONS</b> ACTIVITY * Go Home directly and rest. * Limit activity of the leg (or wrist if it was used) for 7 days including aerobics, swimming, jogging, bicycling, etc. * Restrict stair-climbing for 7 days if possible, if not, climb up with your non-cath leg, then bring together on the same step. * Avoid lifting, pushing, pulling or excessive movement of the affected extremity for 7 days. * Customary sexual activity may be resumed after 2 days-use caution not to use a position that strains or causes pain to the affected extremity. * No driving for 24 hours. * NO SMOKING. * Avoid straining for bowel movements for 7 days. * Gentle walking on level ground is allowed. * Returning to work will depend on the type of procedure and the results. Your doctor will discuss this with you. CALL YOUR DOCTOR FOR ANY OF THE FOLLOWING: *If bleeding from the puncture site occurs- Apply gentle pressure to site with clean cloth and call your doctor or EMS. * If a knot or lump forms under the skin, increases in size, or causes pain. * If bruising appears to be worsening or moving further down your leg instead of disappearing. * Temperature above 101 F. CARE OF YOUR GROIN INCISION; * Bruising or purple discoloration of the skin near the puncture site is common. * You may shower only, no bathtub bathing for 5 days. Be careful to avoid slipping as your leg may feel stiff. * If a closure device was used on your femoral artery, please see the attached guide regarding care of the device and your leg. * Leave dressing on FOR 24 hours. CARE OF YOUR WRIST INCISION; * Bruising or purple discoloration of the skin near the puncture site is common. * You may shower. * DO NOT submerge wrist. * Leave dressing on FOR 24 hours. ROSMERY VILLARREAL MD Sep 12, 2020 10:07
--- NOTE | 2020-09-12 10:11 | Cardiac Cath Report ---
Cardiac Cath Report Physician (s)/Regional Account Manager (s) Physician ROSMERY ZUÑIGA MD Pre-Procedure Diagnosis Pre-Procedure Diagnosis: coronary artery disease Post-Procedure Note Procedure Start Date: Sep 12, 2020 Name of Procedure: Left heart catheterization Findings/Procedure Note PROCEDURE NOTE: 70 years old gentleman with history of hypertension, hyperlipidemia, diabetes mellitus, had an abnormal stress test, scheduled for cardiac catheterization possible PTCA. After explaining the procedure to the patient, all pros and cons were explained, all questions were answered. The patient signed the consent and then he was placed on the cardiac catheterization laboratory. Groin was prepped SL fashion local anesthesia was used. Sheath placed in the artery. Mariam right and left catheter were used to access the coronary system. Pigtail was used to access the left ventricular cavity. Left ventriculogram was done At the end of the procedure the sheath was removed. Closure device was deployed FINDINGS: Hemodynamics LV 118/14, end-diastolic pressure 14 Aorta 126/53 mean of 73 ANATOMY: Left Main is free of obstructive disease Left Anterior Descending has mild disease nonobstructive disease Left Circumflex has mild disease nonobstructive disease Right Coronory Artery has slightly slow flow due to small vessel disease otherwise no significant obstructive disease LV Gram was done showing normal left ventricular size, normal contractility, EF 60 percent CONCLUSION: 1. No significant obstructive coronary artery disease, slightly slower flow in the right coronary artery probably due to small vessel disease 2. Normal left ventricular size and systolic function estimated ejection fraction 60 percent DISCUSSION AND RECOMMENDATION: Patient has multiple risk factors for coronary artery disease, no sig obstructive disease was noted, maximizing medical therapy is recommended. Anesthesia Type: Conscious Sedation Estimated blood loss (mL): 25 ml Contrast Amount: 42 ml Total Radiation Dose: 692 mGy Post-Procedure Diagnosis Post-operative diagnosis: Chest pain Coronary artery disease Hypertension Hyperlipidemia ROSMERY ZUÑIGA MD Sep 12, 2020 10:11 am
[2020-09-12] MEDS ORDERED: PATIENT MAY USE OWN MEDS, ALL PO SCH (10:15)
== END 2020-09-12 14:40 ==
LOC: CATH 06:56 → SDC 10:13 → CATH 14:40
PROVIDERS: ATTEND Internal Medicine Cardiovascular Disease
DX: I25.10 Atherosclerotic heart disease of native coronary artery without angina pectoris (principal); I10 Essential (primary) hypertension; E78.5 Hyperlipidemia, unspecified; G47.33 Obstructive sleep apnea (adult) (pediatric); E11.9 Type 2 diabetes mellitus without complications; J44.9 Chronic obstructive pulmonary disease, unspecified; Z79.84 Long term (current) use of oral hypoglycemic drugs; Z79.899 Other long term (current) drug therapy; G47.36 Sleep related hypoventilation in conditions classified elsewhere; E66.9 Obesity, unspecified
CPT/HCPCS: 71045; 80053; 80061; 85027; 85610; 85730; 87081; 93458; C1760; C1894; 36415

== ENCOUNTER 2020-09-17 15:06 | Emergency (ER) | payer MEDICARE ==
[~2020-09-17] VITALS: Ht 177 cm; Wt 118.0 kg
[~2020-09-17 15:06] MED LIST changes: +PANT40TA2 PO
[2020-09-17 16:24] LABS: BASOPHILS # (AUTO) 0.1 10^3/uL (0.0-0.1); BASOPHILS % (AUTO) 1 % (0-10); EOSINOPHILS # (AUTO) 0.1 10^3/uL (0.0-0.3); EOSINOPHILS % (AUTO) 3 % (0-10); HEMATOCRIT 36 % (40-54); HEMOGLOBIN 10.9 g/dL (13.3-17.7); LYMPHOCYTES # (AUTO) 1.1 10^3/uL (1.0-4.0); LYMPHOCYTES % (AUTO) 22 % (12-44); MEAN CORPUSCULAR HEMOGLOBIN 23 pg (25-34); MEAN CORPUSCULAR HGB CONC 30 g/dL (32-36); MEAN CORPUSCULAR VOLUME 77 fL (80-99); MEAN PLATELET VOLUME 8.9 fL (9.0-12.2); MONOCYTES # (AUTO) 0.6 10^3/uL (0.0-1.0); MONOCYTES % (AUTO) 12 % (0-12); NEUTROPHILS # (AUTO) 3.1 10^3/uL (1.8-7.8); NEUTROPHILS % (AUTO) 62 % (42-75); PLATELET COUNT 281 10^3/uL (130-400)
[2020-09-17 16:35] LABS: CHLORIDE 106 MMOL/L (98-107); POTASSIUM 3.8 MMOL/L (3.6-5.0); SODIUM 139 MMOL/L (135-145)
[2020-09-17 16:36] LABS: CALCIUM 8.6 MG/DL (8.5-10.1)
[2020-09-17 16:37] LABS: GLUCOSE 103 MG/DL (70-105)
--- NOTE | 2020-09-17 16:37 | Diagnostic Imaging Report ---
INDICATION: Swelling of the right groin status post heart catheter. COMPARISON: None available. TECHNIQUE: Grayscale, color Doppler and spectral Doppler imaging of the right groin arterial and venous structures was performed. FINDINGS: The common femoral and superficial femoral veins are patent. The common femoral, superficial and proximal profunda femoris arteries are all patent. There is no arterial venous fistula formation. No pseudoaneurysm is seen. There is an amorphous region of edema within the subcutaneous fat. No loculated hematoma. IMPRESSION: 1. No pseudoaneurysm or AV fistula at the right groin access site. 2. Mild nonloculated subcutaneous edema. No hematoma or abscess. Dictated by: Dictated on workstation # [id number]
[2020-09-17 16:38] LABS: CARBON DIOXIDE 22 MMOL/L (21-32)
[2020-09-17 16:41] LABS: GFR ESTIMATED > 60
[2020-09-17 16:42] LABS: BUN/CREATININE RATIO 23
--- NOTE | 2020-09-17 16:46 | ED General ---
General Chief Complaint: General Problems/Pain Stated Complaint: LEG SWELLING;HEART CATH LAST THURSDAY Nursing Triage Note: PT CO OF KNOT IN R GROIN AREA, PT STATES HAD CARDIAC CATH ON THURSDAY OF LAST WEEK, PT STATES HAS SL SWOLLEN AREA APPROX SIZE OF SMALL GRAPE, AND BRUISING NOTED. DENIES PAIN AT THIS X Nursing Sepsis Screen: No Definite Risk Source of Information: Patient History of Present Illness Date Seen by Provider: Sep 17, 2020 Time Seen by Provider: 15:44 Initial Comments PT ARRIVES VIA POV FROM HOME PT HAD CARDIAC CATH DONE BY DR. ZUÑIGA LAST Thursday09/12/20--NO INTERVENTION CONCERNED ABOUT SMALL KNOT IN RIGHT GROIN, ONLY SORE IF HE PUSHES ON IT ALSO CONCERNED ABOUT BRUISING TO HIS LEG-NO PAIN IN LEG NO DISTAL SWELLING OF HIS LEG NO PARESTHESIAS OR MOTOR DEFICITS NO PROBLEMS URINATING NO FEVER NO DRAINAGE NO STREAKS NO CHEST PAIN NO SHORTNESS OF BREATH PT IS NOT ON BLOOD THINNERS, BUT DOES TAKE 81 MG ASPIRIN PCP: [facility] [place] [facility]: DR. ZUÑIGA Allergies and Home Medications Allergies Coded Allergies: No Known Drug Allergies (Unverified , 01/04/20) Home Medications Amlodipine Besylate 5 Mg Tablet, 5 MG PO DAILY, (Reported) Aspirin 81 Mg Tablet.dr, 81 MG PO DAILY, (Reported) Desvenlafaxine Succinate 100 Mg Tab.er.24h, 100 MG PO DAILY, (Reported) Docusate Sodium 100 Mg Capsule, 100 MG PO DAILY PRN for CONSTIPATION-1ST LINE, (Reported) Fluticasone/Vilanterol 1 Each Blst.w.dev, 1 PUFF PO DAILY PRN for SHORTNESS OF BREATH, (Reported) Gabapentin 100 Mg Capsule, 100-200 MG PO TID PRN for PAIN-BREAKTHROUGH, (Reported) Glipizide 5 Mg Tablet, 5 MG PO BID, (Reported) Hydrocodone/Acetaminophen 1 Each Tablet, 1 EACH PO Q6H PRN for PAIN-MODERATE (5- 7), (Reported) Loratadine 10 Mg Tablet, 10 MG PO DAILY, (Reported) Melatonin 10 Mg Capsule, 10 MG PO HS, (Reported) Metformin HCl 500 Mg Tablet, 1,000 MG PO DAILY, (Reported) TAKES 2 (500MG) TABS Metformin HCl 500 Mg Tablet, 500 MG PO HS Hold metformin for 48 hours Prescribed by: ROSMERY ZUÑIGA on 09/12/20 1006 Montelukast Sodium 10 Mg Tablet, 10 MG PO DAILY, (Reported) Pantoprazole Sodium 40 Mg Tablet.dr, 40 MG PO DAILY, (Reported) Quetiapine Fumarate 100 Mg Tablet, 100 MG PO 0430, (Reported) TAKES 300MG +100MG AT 0430 Quetiapine Fumarate 300 Mg Tablet, 300 MG PO 0430, (Reported) TAKES 300MG +100MG AT 0430 Quetiapine Fumarate 100 Mg Tablet, 200 MG PO 1800, (Reported) TAKES 2 (100MG) TABS Patient Home Medication List Home Medication List Reviewed: Yes Review of Systems Review of Systems Constitutional: no symptoms reported Respiratory: no symptoms reported; No short of breath Cardiovascular: No chest pain, No edema Gastrointestinal: no symptoms reported; No abdominal pain Genitourinary: no symptoms reported Musculoskeletal: see HPI Skin: see HPI Psychiatric/Neurological: No Symptoms Reported Hematologic/Lymphatic: See HPI Past Zcekvvu-Teucaz-Ufximo Hx Past Med/Social Hx: Reviewed and Corrections made Patient Social History Alcohol Use: Denies Use Recreational Drug Use: No Smoking Status: Never a Smoker 2nd Hand Smoke Exposure: Yes Recent Foreign Travel: No Contact w/Someone Who Travel: No Recent Infectious Disease Expo: No Recent Hopitalizations: No Physical Abuse: No Sexual Abuse: No Immunizations Up To Date Tetanus Booster (TDap): Unknown PED Vaccines UTD: No Date of Pneumonia Vaccine: Jun 17, 2019 Date of Influenza Vaccine: Aug 09, 2020 Seasonal Allergies Seasonal Allergies: No Past Medical History Surgeries: Yes (gastric bypass, pilondial cyst, EXCISION OF BACK MASS X2;CARDIAC CATH 09/12) Abdominal, Cardiac, Gallbladder Respiratory: Yes Sleep Apnea, COPD, Emphysema Currently Using CPAP: Yes Currently Using BIPAP: No Cardiac: Yes (CARDIAC CATH 09/12/20--NO INTERVENTION/DR. ZUÑIGA) High Cholesterol, Hypertension Neurological: No Sexually Transmitted Disease: No HIV/AIDS: No Genitourinary: No Gastrointestinal: Yes Gastroesophageal Reflux, Chronic Constipation Musculoskeletal: Yes Arthritis Endocrine: Yes Diabetes, Non-Insulin dep HEENT: Yes (GLASSES, DENTURES) Loss of Vision: Denies Hearing Impairment: Denies Cancer: No Psychosocial: Yes Depression Integumentary: No Blood Disorders: No Adverse Reaction/Blood Tranf: No (N/A) Family Medical History Dementia 19 FATHER, FH: pulmonary embolism Myocardial infarction G8 BROTHER, No Pertinent Family Hx Physical Exam Vital Signs Vital Signs - First Documented 09/17/20 15:44 Temp 36.1 Pulse 62 Resp 18 B/P (MAP) 128/88 (101) Pulse Ox 94 Capillary Refill : Less Than 3 Seconds Height, Weight, BMI Height: 5'11.00" Weight: 259lbs. 0.0oz. [id number]; 37.00 BMI Method: General Appearance: No Apparent Distress, Obese, Other (WALKS WITHOUT DIFFICULTY) Respiratory: Normal Breath Sounds Cardiovascular: Regular Rate, Rhythm Extremity: Normal Capillary Refill, Normal Range of Motion, No Pedal Edema, Other (RIGHT GROIN CATH SITE WITH NORMAL APPEARANCE. 1 CM FIRM, SLIGHTLY TENDER SUB Q NODULE AT THE SITE. MODERATE AMOUNT OF OLD BRUISING TO ANTERIOR AND MEDIAL RIGHT THIGH. NO SIGNIFICANT SWELLING TO THIGH AND NO TENDERNESS TO THIGH. MOTOR/SENSORY/VASCULAR INTACT. ) Neurologic/Psychiatric: Alert, Oriented x3, No Motor/Sensory Deficits Skin: Normal Color, Warm/Dry, Ecchymosis Progress/Results/Core Measures Suspected Sepsis Recent Fever Within 48 Hours: No Infection Criteria Present: None New/Unexplained Altered Menta: No Sepsis Screen: No Definite Risk SIRS Temperature: Pulse: 62 Respiratory Rate: 18 Laboratory Tests 09/17/20 16:19: White Blood Count 5.0 Blood Pressure 128 /88 Mean: 101 Laboratory Tests 09/17/20 16:19: Creatinine 0.90, Platelet Count 281 Results/Orders Lab Results Laboratory Tests Test 09/17/20 16:19 Range/Units White Blood Count 5.0 4.3-11.0 10^3/uL Red Blood Count 4.68 4.30-5.52 10^6/uL Hemoglobin 10.9 L 13.3-17.7 g/dL Hematocrit 36 L 40-54 % Mean Corpuscular Volume 77 L 80-99 fL Mean Corpuscular Hemoglobin 23 L 25-34 pg Mean Corpuscular Hemoglobin Concent 30 L 32-36 g/dL Red Cell Distribution Width 17.8 H 10.0-14.5 % Platelet Count 281 130-400 10^3/uL Mean Platelet Volume 8.9 L 9.0-12.2 fL Immature Granulocyte % (Auto) 0 % Neutrophils (%) (Auto) 62 42-75 % Lymphocytes (%) (Auto) 22 12-44 % Monocytes (%) (Auto) 12 0-12 % Eosinophils (%) (Auto) 3 0-10 % Basophils (%) (Auto) 1 0-10 % Neutrophils # (Auto) 3.1 1.8-7.8 10^3/uL Lymphocytes # (Auto) 1.1 1.0-4.0 10^3/uL Monocytes # (Auto) 0.6 0.0-1.0 10^3/uL Eosinophils # (Auto) 0.1 0.0-0.3 10^3/uL Basophils # (Auto) 0.1 0.0-0.1 10^3/uL Immature Granulocyte # (Auto) 0.0 0.0-0.1 10^3/uL Sodium Level 139 135-145 MMOL/L Potassium Level 3.8 3.6-5.0 MMOL/L Chloride Level 106 98-107 MMOL/L Carbon Dioxide Level 22 21-32 MMOL/L Anion Gap 11 5-14 MMOL/L Blood Urea Nitrogen 21 H 7-18 MG/DL Creatinine 0.90 0.60-1.30 MG/DL Estimat Glomerular Filtration Rate > 60 BUN/Creatinine Ratio 23 Glucose Level 103 70-105 MG/DL Calcium Level 8.6 8.5-10.1 MG/DL My Orders Orders - BENJAMIN WILLSON DO Us Right Low Ext [id number] (09/17/20 15:47) Basic Metabolic Panel (09/17/20 15:47) Cbc With Automated Diff (09/17/20 15:47) Protime With Inr (09/17/20 15:47) Partial Thromboplastin Time (09/17/20 15:47) Vital Signs/I&O 09/17/20 15:44 Temp 36.1 Pulse 62 Resp 18 B/P (MAP) 128/88 (101) Pulse Ox 94 Capillary Refill : Less Than 3 Seconds Blood Pressure Mean: 101 Diagnostic Imaging Comments RIGHT LEG ARTERIAL ULTRASOUND--PER RADIOLOGIST REPORT AT 1645 IMPRESSION: 1. No pseudoaneurysm or AV fistula at the right groin access site. 2. Mild nonloculated subcutaneous edema. No hematoma or abscess. Reviewed: Reviewed by Me Departure Impression Primary Impression: POST CARDIAC CATH BRUISING TO RIGHT LEG Disposition: HOME, SELF-CARE Condition: Stable Departure-Patient Inst. Referrals: [facility] (PCP) Primary Care Physician GERMAN BUSTILLO (Family) Primary Care Physician ROSMERY ZUÑIGA MD Patient Instructions: Taking Care of Bruises Add. Discharge Instructions: FOLLOW ALL POST PROCEDURE INSTRUCTIONS BY DR. ZUÑIGA FOLLOW UP WITH DR. ZUÑIGA FOR FURTHER CARE All discharge instructions reviewed with patient and/or family. Voiced understanding. BENJAMIN WILLSON DO Sep 17, 2020 16:46
[2020-09-17 16:48] LABS: INR 1.1 (0.8-1.4); PROTHROMBIN TIME PATIENT 14.5 SEC (12.2-14.7)
[2020-09-17 16:58] VITALS: BP 127/82
== END 2020-09-17 17:05 | disposition home or self-care (01) ==
LOC: EDUNIT# 15:06 → ER 15:07
DX: I97.630 Postprocedural hematoma of a circulatory system organ or structure following a cardiac catheterization (principal); I10 Essential (primary) hypertension; E11.9 Type 2 diabetes mellitus without complications; E78.00 Pure hypercholesterolemia, unspecified; F32.9 Major depressive disorder, single episode, unspecified; K21.9 Gastro-esophageal reflux disease without esophagitis; J43.9 Emphysema, unspecified; Z79.899 Other long term (current) drug therapy; Z79.82 Long term (current) use of aspirin; Z79.51 Long term (current) use of inhaled steroids; Z79.84 Long term (current) use of oral hypoglycemic drugs; Z98.84 Bariatric surgery status
CPT/HCPCS: 36415; 80048; 85025; 85610; 85730; 93926

== ENCOUNTER → 2021-02-05 | Outpatient (CLI) | payer MEDICARE, OTHER ==
[~2021-02-05] MED LIST changes: +CATHETER FLUSH 10 ML SYR IV PRN; +HOLD METFORMIN - RECEIVED CONTRAST 20 ML VIAL IV SCH; +IOHEXOL 350 MG/ML 100 ML (OMNIPAQUE 350) VIAL IV ONE; -MONT10TA26 PO; +MONT10TA32 PO; +NS 100 ML (IVPB) BAG IV ONE; -OXYC-471 PO; +OXYC1TAB11 PO; +QUET300T19 PO; -QUET300T44 PO; +RT-ALBUTEROL SULF 2.5 MG/3 ML PRE-MIX VIAL INH ONE
[2021-02-05 07:48] LABS: BUN/CREATININE RATIO 19; CREATININE SERUM 0.95 MG/DL (0.60-1.30); GFR ESTIMATED > 60
--- NOTE | 2021-02-05 09:54 | Diagnostic Imaging Report ---
PROCEDURE: CT chest with contrast only. TECHNIQUE: Multiple contiguous axial images were obtained through the chest after administration of intravenous contrast. Auto Exposure Controls were utilized during the CT exam to meet ALARA standards for radiation dose reduction. INDICATION: Cough and dyspnea. COMPARISON: The study is correlated with overlapped views of the lower chest obtained at the time of abdominal CT on 06/17/2020. Also compared directly to chest CT of 12/30/2019. FINDINGS: No focal alveolar consolidation or bronchograms. Lung volumes are symmetric and normal. There is no lung mass or suspicious pulmonary nodule. The thoracic aorta is patent and nonaneurysmal. There is a small hiatal hernia, chronic. No effusion, pneumothorax, or acute appearing chest wall pathology. The visualized upper abdomen shows post surgical changes, presumed gastric bypass and cholecystectomy. IMPRESSION: No acute finding in the chest. No change from the prior exam. Dictated by: Dictated on workstation # [id number]
== END ==
LOC: RT 08:00
PROVIDERS: ATTEND Nurse Practitioner Family
DX: R06.00 Dyspnea, unspecified (principal); R05 Cough
CPT/HCPCS: 36415; 71260; 82565; 84520; 94060; 94726; 94729

== ENCOUNTER 2022-05-27 13:17 | Emergency (ER) | payer MEDICARE ==
[~2022-05-27] VITALS: Ht 178 cm; Wt 118.0 kg
[~2022-05-27 13:17] MED LIST changes: -CATHETER FLUSH 10 ML SYR IV PRN; +CYCL10TA25 PO; -CYCL10TA9 PO; -FLUC200T5 PO; +FLUC200T9 PO; -HOLD METFORMIN - RECEIVED CONTRAST 20 ML VIAL IV SCH; -IOHEXOL 350 MG/ML 100 ML (OMNIPAQUE 350) VIAL IV ONE; -LISI1TAB29 PO; +LISI1TAB44 PO; +MONT-40 PO; -MONT10TA32 PO; -NS 100 ML (IVPB) BAG IV ONE; -RT-ALBUTEROL SULF 2.5 MG/3 ML PRE-MIX VIAL INH ONE
[2022-05-27] MEDS ORDERED: NS IV 1000 ML 1,000 ML IV STA (13:55)
[2022-05-27 14:01] LABS: BASOPHILS % (AUTO) 1 % (0-10); EOSINOPHILS % (AUTO) 1 % (0-10); HEMATOCRIT 47 % (40-54); HEMOGLOBIN 16.2 g/dL (13.3-17.7); LYMPHOCYTES # (AUTO) 0.7 10^3/uL (1.0-4.0); LYMPHOCYTES % (AUTO) 11 % (12-44); MEAN CORPUSCULAR HEMOGLOBIN 31 pg (25-34); MEAN CORPUSCULAR HGB CONC 34 g/dL (32-36); MEAN CORPUSCULAR VOLUME 90 fL (80-99); MONOCYTES # (AUTO) 0.6 10^3/uL (0.0-1.0); MONOCYTES % (AUTO) 10 % (0-12); NEUTROPHILS # (AUTO) 4.5 10^3/uL (1.8-7.8); NEUTROPHILS % (AUTO) 77 % (42-75); PLATELET COUNT 166 10^3/uL (130-400); WHITE BLOOD COUNT 5.8 10^3/uL (4.3-11.0)
[2022-05-27 14:06] LABS: ALBUMIN 3.7 GM/DL (3.2-4.5); POTASSIUM 3.6 MMOL/L (3.6-5.0)
[2022-05-27 14:07] LABS: CALCIUM 8.9 MG/DL (8.5-10.1)
[2022-05-27 14:08] LABS: TOTAL PROTEIN 6.8 GM/DL (6.4-8.2)
[2022-05-27 14:10] LABS: BILIRUBIN,TOTAL 0.8 MG/DL (0.1-1.0)
--- NOTE | 2022-05-27 14:10 | ED General ---
General Chief Complaint: General Problems/Pain Stated Complaint: RLQ PAIN Nursing Triage Note: C/O RLQ PAIN FOR THREE WEEKS, STATES IT WAS WORSENING TODAY. DENIES NAUSEA OR VOMITING AND VERBALIZES BOWELS MOVED YESTERDAY AND WERE NORMAL. Source of Information: Patient, Family Exam Limitations: No Limitations History of Present Illness Date Seen by Provider: May 27, 2022 Time Seen by Provider: 13:48 Initial Comments Here with report of right-sided abdominal pain with worsening over the last 24 hours. States he is urinating okay but occasionally having some difficulty with bowel movements. Does have history of diverticulitis. No history of kidney stones. Denies dysuria, fever, chills, nausea, vomiting or diarrhea. Denies any injury. Timing/Duration: 1-2 Days (3 weeks worsening), Getting Worse, Other Severity: Moderate (Aching) Modifying Factors: improves with Rest Associated Systoms: No Chest Pain, No Cough, No Fever/Chills, No Nausea/Vomiting, No Shortness of Air, No Weakness Allergies and Home Medications Allergies Coded Allergies: No Known Drug Allergies (Unverified , 01/04/20) Patient Home Medication List Home Medication List Reviewed: Yes Amlodipine Besylate (Amlodipine Besylate) 5 Mg Tablet, 5 MG PO DAILY, (Reported) Entered as Reported by: CARLINE ONEIL on 01/04/20 1252 Aspirin (Aspirin EC) 81 Mg Tablet.dr, 81 MG PO DAILY, (Reported) Entered as Reported by: ANTONY WILLAMS on 09/12/20 0842 Cefdinir (Cefdinir) 300 Mg Capsule, 300 MG PO BID Prescribed by: RICA URIBE on 05/27/22 1712 Desvenlafaxine Succinate (Pristiq ER) 100 Mg Tab.er.24h, 100 MG PO DAILY, (Reported) Entered as Reported by: CARLINE ONEIL on 01/04/20 1252 Docusate Sodium (Docusate Sodium) 100 Mg Capsule, 100 MG PO DAILY PRN for CONSTIPATION-1ST LINE, (Reported) Entered as Reported by: CARLINE ONEIL on 01/04/20 1252 Fluticasone/Vilanterol (Breo Ellipta 200-25 Mcg INH) 1 Each Blst.w.dev, 1 PUFF PO DAILY PRN for SHORTNESS OF BREATH, (Reported) Entered as Reported by: ANTONY WILLAMS on 06/18/20 1000 Gabapentin (Gabapentin) 100 Mg Capsule, 100-200 MG PO TID PRN for PAIN- BREAKTHROUGH, (Reported) Entered as Reported by: ANTONY WILLAMS on 09/12/20 0844 Glipizide (Glipizide) 5 Mg Tablet, 5 MG PO BID, (Reported) Entered as Reported by: CARLINE ONEIL on 01/04/20 1252 Hydrocodone/Acetaminophen (Hydrocodone-Acetamin 5-325 mg) 1 Each Tablet, 1 EACH PO Q6H PRN for PAIN-MODERATE (5-7), (Reported) Entered as Reported by: ANTONY WILLAMS on 09/12/20 0842 Loratadine (Loratadine) 10 Mg Tablet, 10 MG PO DAILY, (Reported) Entered as Reported by: ANTONY WILLAMS on 09/12/20 0842 Melatonin (Melatonin) 10 Mg Capsule, 10 MG PO HS, (Reported) Entered as Reported by: DOUG GONSALVES on 12/14/18 1257 Metformin HCl (Metformin HCl) 500 Mg Tablet, 1,000 MG PO DAILY, (Reported) Entered as Reported by: DOUG GONSALVES on 12/14/18 1245 Metformin HCl (Metformin HCl) 500 Mg Tablet, 500 MG PO HS Prescribed by: ROSMERY ZUÑIGA on 09/12/20 1006 Metronidazole (Metronidazole) 500 Mg Tablet, 500 MG PO TID Prescribed by: RICA URIBE on 05/27/22 1712 Montelukast Sodium (Montelukast Sodium) 10 Mg Tablet, 10 MG PO DAILY, (Reported) Entered as Reported by: ANTONY WILLAMS on 06/18/20 1003 Pantoprazole Sodium (Protonix) 40 Mg Tablet.dr, 40 MG PO DAILY, (Reported) Entered as Reported by: ANTONY WILLAMS on 09/12/20 0842 Quetiapine Fumarate (Seroquel) 100 Mg Tablet, 100 MG PO 0430, (Reported) Entered as Reported by: CARLINE ONEIL on 01/04/20 1252 Quetiapine Fumarate (Seroquel) 300 Mg Tablet, 300 MG PO 0430, (Reported) Entered as Reported by: CARLINE ONEIL on 01/04/20 1252 Quetiapine Fumarate (Seroquel) 100 Mg Tablet, 200 MG PO 1800, (Reported) Entered as Reported by: ANTONY WILLAMS on 09/12/20 0840 Review of Systems Review of Systems Constitutional: see HPI; No chills, No fever EENTM: nose congestion; No throat pain Respiratory: No cough, No phlegm, No short of breath Cardiovascular: No chest pain, No edema Gastrointestinal: abdominal pain (Right-sided that is worse with deep breathing and moving), constipation; No nausea, No vomiting Genitourinary: No dysuria, No hematuria Musculoskeletal: no symptoms reported Skin: No change in color, No lesions Psychiatric/Neurological: Denies Headache, Denies Weakness All Other Systems Reviewed Negative Unless Noted: Yes Past [id number]-Hohqqp Hx Patient Social History Tobacco Use?: No Use of E-Cig and/or Vaping dev: No Substance use?: No Pt feels they are or have been: No Immunizations Up To Date Tetanus Booster (TDap): Unknown PED Vaccines UTD: No Influenza Vaccine Up-to-Date: Yes; Up-to-Date First/Initial COVID19 Vaccinat: 2020 Second COVID19 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 ZUÑIGA) High Cholesterol, Hypertension Neurological: No Sexually Transmitted Disease: No HIV/AIDS: No Genitourinary: No Gastrointestinal: Yes Gastroesophageal Reflux, Chronic Constipation Musculoskeletal: Yes Arthritis Endocrine: Yes Diabetes, Non-Insulin dep HEENT: Yes (GLASSES, DENTURES) Loss of Vision: Denies Hearing Impairment: Denies Cancer: No Psychosocial: Yes Depression Integumentary: No Blood Disorders: No Adverse Reaction/Blood Tranf: No (N/A) Family Medical History Reviewed Nursing Family Hx Dementia 19 FATHER, FH: pulmonary embolism Myocardial infarction G8 BROTHER, No Pertinent Family Hx Physical Exam Vital Signs Vital Signs - First Documented 05/27/22 13:25 Temp 37.2 Pulse 92 Resp 18 B/P (MAP) 128/77 (94) Pulse Ox 94 O2 Delivery Room Air Capillary Refill : Less Than 3 Seconds Height, Weight, BMI Height: 5'11.00" Weight: 259lbs. 0.0oz. 117.088008pj; 37.00 BMI Method: General Appearance: No Apparent Distress, WD/WN, Obese HEENT: PERRL/EOMI, Pharynx Normal Neck: Non Tender, Supple Respiratory: Lungs Clear, Normal Breath Sounds Cardiovascular: Regular Rate, Rhythm, No Murmur Gastrointestinal: Soft; No Guarding, No Rebound; Other (Right-sided abdominal pain) Back: Normal Inspection, No CVA Tenderness, No Vertebral Tenderness Extremity: Non Tender, No Calf Tenderness Neurologic/Psychiatric: Alert, Oriented x3 Skin: Normal Color, Warm/Dry Progress/Results/Core Measures Suspected Sepsis SIRS Temperature: Pulse: 92 Respiratory Rate: 18 Laboratory Tests 05/27/22 13:33: White Blood Count 5.8 Blood Pressure 128 /77 Mean: 94 Laboratory Tests 05/27/22 13:33: Creatinine 0.95, Platelet Count 166, Total Bilirubin 0.8 Results/Orders Lab Results Laboratory Tests Test 05/27/22 13:33 05/27/22 13:54 Range/Units White Blood Count 5.8 4.3-11.0 10^3/uL Red Blood Count 5.24 4.30-5.52 10^6/uL Hemoglobin 16.2 13.3-17.7 g/dL Hematocrit 47 40-54 % Mean Corpuscular Volume 90 80-99 fL Mean Corpuscular Hemoglobin 31 25-34 pg Mean Corpuscular Hemoglobin Concent 34 32-36 g/dL Red Cell Distribution Width 13.5 10.0-14.5 % Platelet Count 166 130-400 10^3/uL Mean Platelet Volume 9.0 9.0-12.2 fL Immature Granulocyte % (Auto) 1 % Neutrophils (%) (Auto) 77 H 42-75 % Lymphocytes (%) (Auto) 11 L 12-44 % Monocytes (%) (Auto) 10 0-12 % Eosinophils (%) (Auto) 1 0-10 % Basophils (%) (Auto) 1 0-10 % Neutrophils # (Auto) 4.5 1.8-7.8 10^3/uL Lymphocytes # (Auto) 0.7 L 1.0-4.0 10^3/uL Monocytes # (Auto) 0.6 0.0-1.0 10^3/uL Eosinophils # (Auto) 0.0 0.0-0.3 10^3/uL Basophils # (Auto) 0.0 0.0-0.1 10^3/uL Immature Granulocyte # (Auto) 0.0 0.0-0.1 10^3/uL Sodium Level 139 135-145 MMOL/L Potassium Level 3.6 3.6-5.0 MMOL/L Chloride Level 107 98-107 MMOL/L Carbon Dioxide Level 22 21-32 MMOL/L Anion Gap 10 5-14 MMOL/L Blood Urea Nitrogen 15 7-18 MG/DL Creatinine 0.95 0.60-1.30 MG/DL Estimat Glomerular Filtration Rate 85 BUN/Creatinine Ratio 16 Glucose Level 226 H 70-105 MG/DL Calcium Level 8.9 8.5-10.1 MG/DL Corrected Calcium 9.1 8.5-10.1 MG/DL Total Bilirubin 0.8 0.1-1.0 MG/DL Aspartate Amino Transf (AST/SGOT) 19 5-34 U/L Alanine Aminotransferase (ALT/SGPT) 17 0-55 U/L Alkaline Phosphatase 36 L 40-136 U/L C-Reactive Protein High Sensitivity 6.51 H 0.00-0.50 MG/DL Total Protein 6.8 6.4-8.2 GM/DL Albumin 3.7 3.2-4.5 GM/DL Urine Color YELLOW Urine Clarity CLEAR Urine pH 5.5 5-9 Urine Specific [place] 1.020 1.016-1.022 Urine Protein NEGATIVE NEGATIVE Urine Glucose (UA) 3+ H NEGATIVE Urine Ketones NEGATIVE NEGATIVE Urine Nitrite NEGATIVE NEGATIVE Urine Bilirubin NEGATIVE NEGATIVE Urine Urobilinogen 0.2 < = 1.0 MG/DL Urine Leukocyte Esterase NEGATIVE NEGATIVE Urine RBC (Auto) 1+ H NEGATIVE Urine RBC NONE /HPF Urine WBC NONE /HPF Urine Squamous Epithelial Cells NONE /HPF Urine Crystals NONE /LPF Urine Bacteria NEGATIVE /HPF Urine Casts NONE /LPF Urine Mucus NEGATIVE /LPF Urine Culture Indicated NO My Orders Orders - RICA URIBE MD Cbc With Automated Diff (05/27/22 13:55) Comprehensive Metabolic Panel (05/27/22 13:55) Hs C Reactive Protein (05/27/22 13:55) Ua Culture If Indicated (05/27/22 13:55) Ns Iv 1000 Ml (Sodium Chloride 0.9%) (05/27/22 13:55) Ed Iv/Invasive Line Start (05/27/22 13:55) Ct Abdomen/Pelvis W (05/27/22 14:30) Iohexol Injection (Omnipaque 350 Mg/Ml 1 (05/27/22 14:45) Received Contrast (Hold Metformin- Contr (05/27/22 14:45) Ns (Ivpb) (Sodium Chloride 0.9% Ivpb Bag (05/27/22 14:45) Medications Given in ED Current Medications Medications Dose Ordered Sig/Nicolas Route Start Time Stop Time Status Last Admin Dose Admin Iohexol 100 ml ONCE ONCE IV 05/27/22 14:45 05/27/22 14:46 DC 05/27/22 14:45 100 ML Sodium Chloride 100 ml ONCE ONCE IV 05/27/22 14:45 05/27/22 14:46 DC 05/27/22 14:45 80 ML Vital Signs/I&O 05/27/22 13:25 Temp 37.2 Pulse 92 Resp 18 B/P (MAP) 128/77 (94) Pulse Ox 94 O2 Delivery Room Air Capillary Refill : Less Than 3 Seconds Blood Pressure Mean: 94 Progress Note : Progress Note Seen and evaluated. IV, labs, UA, normal saline 1 L bolus. Patient declined pain or nausea medicine. Anticipate CT after UA obtained. Monitor patient. 1530: CT with contrast ordered. Results noted. I did discuss the case with Dr. Richards as there does appear to be a fluid collection around a dropped gallstone as noted on the CT report. Dr. Richards will see the patient in the ER and discuss further evaluation/treatment. This was discussed with patient and family who agree. Monitor patient. 1646: Dr. Richards has seen the patient in the emergency department. He will set the patient up for outpatient surgery. Patient wants to go home and is in agreement with this plan. Discharged home with return precautions. Patient verbalized understanding instructions and agreement with plan. Diagnostic Imaging Diagonstic Imaging: CT Plain Films/CT/US/NM/MRI: abdomen, pelvis Comments [facility]. [place], [place] NAME: ASHLEYGERMAN Mckenna [facility] REC#: [id number] PT STATUS: REG ER : 1950 PHYSICIAN: RICA URIBE MD ADMIT DATE: 05/27/22/ER Signed Date of Exam:05/27/22 CT ABDOMEN/PELVIS W EXAMINATION: CT abdomen and pelvis with intravenous contrast. TECHNIQUE: Multiple contiguous axial images were obtained through the abdomen and pelvis after the uneventful administration of intravenous contrast. All CT scans use one or more of the following dose optimizing techniques: automated exposure control, MA and/or KvP adjustment based on patient size and exam type or iterative reconstruction. HISTORY: Right-sided abdominal pain COMPARISON: 06/17/2020 FINDINGS: Lung bases: Bibasilar dependent atelectasis. Solid organs: The liver is normal without focal lesion. The gallbladder is surgically absent. There is no biliary ductal dilation. Pancreas is normal. Spleen is enlarged measuring up to 17.1 cm. Adrenal glands are normal. There are bilateral renal cortical lesions, many of which are too small to characterize but largest of which is mildly hyperdense measuring up to 1.7 cm. Bowel: Surgical changes from gastric bypass surgery. No bowel obstruction. There is scattered colonic diverticulosis. The appendix is normal. Peritoneum: There is a loculated fluid collection within the posterior perihepatic space with adjacent surgical clip as well as a 0.8 cm hyperdensity which may represent a dropped gallstone. Collection measures up to 9.2 x 2.6 cm. No suspicious lymphadenopathy. Vasculature: Calcification of the aorta without aneurysm. Musculoskeletal: Degenerative changes of the spine without suspicious osseous lesion or compression fracture. There is a redemonstrated right gluteal hypodense lesion measuring up to 5 cm. There is a right inguinal hernia containing a loop of bowel and fat without obstruction. Pelvis: The prostate gland is normal. The urinary bladder is normal. IMPRESSION: 1. Findings concerning for a dropped gallstone within the posterior perihepatic space with surrounding loculated fluid collection. 2. Colonic diverticulosis without findings of diverticulitis. Dictated by: Dictated on workstation # [id number] Dict: 05/27/22 1501 Trans: 05/27/22 1512 [facility] [id number] Interpreted by: ALONDRA HAIRSTON DO Electronically signed by: ALONDRA HAIRSTON DO 05/27/22 1512 Departure Impression Primary Impression: Intra-abdominal infection Disposition: HOME, SELF-CARE Condition: Stable Departure-Patient Inst. Decision time for Depature: 17:10 Referrals: [facility] (PCP) Primary Care Physician JOSTIN FRIAS APRN (Family) Primary Care Physician HARPER RICHARDS DO Patient Instructions: Wound Infection Add. Discharge Instructions: All discharge instructions reviewed with patient and/or family. Voiced understanding. Continue home medications as previously prescribed. Take other medications as directed. You will follow-up for outpatient surgery as discussed with Dr. Richards. Return for worse pain, fever, vomiting, weakness, breathing problems or other concerns as needed. Scripts Metronidazole (Metronidazole) 500 Mg Tablet 500 MG PO TID, #21 TAB 0 Refills Prov: RICA URIBE MD 05/27/22 Cefdinir (Cefdinir) 300 Mg Capsule 300 MG PO BID, #14 CAP 0 Refills Prov: RICA URIBE MD 05/27/22 RICA URIBE MD May 27, 2022 14:10
[2022-05-27 14:12] LABS: CREATININE SERUM 0.95 MG/DL (0.60-1.30)
[2022-05-27 14:14] LABS: BILIRUBIN,URINE NEGATIVE (NEGATIVE); CLARITY,URINE CLEAR; COLOR,URINE YELLOW; GLUCOSE, URINE (UA) 3+ (NEGATIVE); KETONES,URINE NEGATIVE (NEGATIVE); LEUKOCYTE ESTERASE ,URINE NEGATIVE (NEGATIVE); NITRITE,URINE NEGATIVE (NEGATIVE); PH,URINE 5.5 (5-9); PROTEIN,URINE NEGATIVE (NEGATIVE)
[2022-05-27 14:20] LABS: BACTERIA,URINE NEGATIVE /HPF
[2022-05-27] MEDS ORDERED: IOHEXOL 350 MG/ML 100 ML (OMNIPAQUE 350) VIAL IV ONE (14:45)
[2022-05-27] MEDS ORDERED: HOLD METFORMIN - RECEIVED CONTRAST 20 ML VIAL IV SCH (14:45)
[2022-05-27] MEDS ORDERED: NS 100 ML (IVPB) BAG IV ONE (14:45)
--- NOTE | 2022-05-27 15:12 | Diagnostic Imaging Report ---
EXAMINATION: CT abdomen and pelvis with intravenous contrast. TECHNIQUE: Multiple contiguous axial images were obtained through the abdomen and pelvis after the uneventful administration of intravenous contrast. All CT scans use one or more of the following dose optimizing techniques: automated exposure control, MA and/or KvP adjustment based on patient size and exam type or iterative reconstruction. HISTORY: Right-sided abdominal pain COMPARISON: 06/17/2020 FINDINGS: Lung bases: Bibasilar dependent atelectasis. Solid organs: The liver is normal without focal lesion. The gallbladder is surgically absent. There is no biliary ductal dilation. Pancreas is normal. Spleen is enlarged measuring up to 17.1 cm. Adrenal glands are normal. There are bilateral renal cortical lesions, many of which are too small to characterize but largest of which is mildly hyperdense measuring up to 1.7 cm. Bowel: Surgical changes from gastric bypass surgery. No bowel obstruction. There is scattered colonic diverticulosis. The appendix is normal. Peritoneum: There is a loculated fluid collection within the posterior perihepatic space with adjacent surgical clip as well as a 0.8 cm hyperdensity which may represent a dropped gallstone. Collection measures up to 9.2 x 2.6 cm. No suspicious lymphadenopathy. Vasculature: Calcification of the aorta without aneurysm. Musculoskeletal: Degenerative changes of the spine without suspicious osseous lesion or compression fracture. There is a redemonstrated right gluteal hypodense lesion measuring up to 5 cm. There is a right inguinal hernia containing a loop of bowel and fat without obstruction. Pelvis: The prostate gland is normal. The urinary bladder is normal. IMPRESSION: 1. Findings concerning for a dropped gallstone within the posterior perihepatic space with surrounding loculated fluid collection. 2. Colonic diverticulosis without findings of diverticulitis. Dictated by: Dictated on workstation # [id number]
--- NOTE | 2022-05-27 17:02 | Consultation - Surgery ---
History of Present Illness History of Present Illness Patient Consulted On(mickey/time) 05/27/22 16:57 Time Seen by Provider: 16:41 History of Present Illness Surgery asked to consult regarding possible abdominal abscess. HPI per ED: Here with report of right-sided abdominal pain with worsening over the last 24 hours. States he is urinating okay but occasionally having some difficulty with bowel movements. Does have history of diverticulitis. No history of kidney stones. Denies dysuria, fever, chills, nausea, vomiting or diarrhea. Denies any injury. Timing/Duration: 1-2 Days (3 weeks worsening), Getting Worse, Other Severity: Moderate (Aching) Modifying Factors: improves with Rest Associated Systoms: No Chest Pain, No Cough, No Fever/Chills, No Nausea/Vomiting, No Shortness of Air, No Weakness When I saw the pt he was sitting in his bed in the ER, relatively comfortable. States he has been having RUQ/Flank pain for "a while", but definitely worse over the past 3-4 weeks. His main complaint is that it hurts when he takes a deep breath. Radiates around to his back and up to shoulder blade. Pain is a stabbing/crampy pain, but only 3-4 out of 10. Allergies and Home Medications Allergies Coded Allergies: No Known Drug Allergies (Unverified , 01/04/20) Patient Home Medication List Home Medication List Reviewed: Yes Amlodipine Besylate (Amlodipine Besylate) 5 Mg Tablet, 5 MG PO DAILY, (Reported) Entered as Reported by: CARLINE ONEIL on 01/04/20 1252 Aspirin (Aspirin EC) 81 Mg Tablet.dr, 81 MG PO DAILY, (Reported) Entered as Reported by: ANTONY WILLAMS on 09/12/20 0842 Desvenlafaxine Succinate (Pristiq ER) 100 Mg Tab.er.24h, 100 MG PO DAILY, (Reported) Entered as Reported by: CARLINE ONEIL on 01/04/20 1252 Docusate Sodium (Docusate Sodium) 100 Mg Capsule, 100 MG PO DAILY PRN for CONSTIPATION-1ST LINE, (Reported) Entered as Reported by: CARLINE ONEIL on 01/04/20 1252 Fluticasone/Vilanterol (Breo Ellipta 200-25 Mcg INH) 1 Each Blst.w.dev, 1 PUFF PO DAILY PRN for SHORTNESS OF BREATH, (Reported) Entered as Reported by: ANTONY WILLAMS on 06/18/20 1000 Gabapentin (Gabapentin) 100 Mg Capsule, 100-200 MG PO TID PRN for PAIN- BREAKTHROUGH, (Reported) Entered as Reported by: ANTONY WILLAMS on 09/12/20 0844 Glipizide (Glipizide) 5 Mg Tablet, 5 MG PO BID, (Reported) Entered as Reported by: CARLINE ONEIL on 01/04/20 1252 Hydrocodone/Acetaminophen (Hydrocodone-Acetamin 5-325 mg) 1 Each Tablet, 1 EACH PO Q6H PRN for PAIN-MODERATE (5-7), (Reported) Entered as Reported by: ANTONY WILLAMS on 09/12/20 0842 Loratadine (Loratadine) 10 Mg Tablet, 10 MG PO DAILY, (Reported) Entered as Reported by: ANTONY WILLAMS on 09/12/20 0842 Melatonin (Melatonin) 10 Mg Capsule, 10 MG PO HS, (Reported) Entered as Reported by: DOUG GONSALVES on 12/14/18 1257 Metformin HCl (Metformin HCl) 500 Mg Tablet, 1,000 MG PO DAILY, (Reported) Entered as Reported by: DOUG GONSALVES on 12/14/18 1245 Metformin HCl (Metformin HCl) 500 Mg Tablet, 500 MG PO HS Prescribed by: ROSMERY ZUÑIGA on 09/12/20 1006 Montelukast Sodium (Montelukast Sodium) 10 Mg Tablet, 10 MG PO DAILY, (Reported) Entered as Reported by: ANTONY WILLAMS on 06/18/20 1003 Pantoprazole Sodium (Protonix) 40 Mg Tablet.dr, 40 MG PO DAILY, (Reported) Entered as Reported by: ANTONY WILLAMS on 09/12/20 0842 Quetiapine Fumarate (Seroquel) 100 Mg Tablet, 100 MG PO 0430, (Reported) Entered as Reported by: CARLINE ONEIL on 01/04/20 1252 Quetiapine Fumarate (Seroquel) 300 Mg Tablet, 300 MG PO 0430, (Reported) Entered as Reported by: CARLINE ONEIL on 01/04/20 1252 Quetiapine Fumarate (Seroquel) 100 Mg Tablet, 200 MG PO 1800, (Reported) Entered as Reported by: ANTONY WILLAMS on 09/12/20 0840 Past Mldmeif-Uhgsmh-Siplse Hx Patient Social History Smoking Status: Never a Smoker 2nd Hand Smoke Exposure: Yes Recent Hopitalizations: No Immunizations Up To Date Tetanus Booster (TDap): Unknown PED Vaccines UTD: No Date of Pneumonia Vaccine: Jun 17, 2019 Date of Influenza Vaccine: Aug 09, 2020 Seasonal Allergies Seasonal Allergies: No Surgeries History of Surgeries: Yes (gastric bypass, pilondial cyst, EXCISION OF BACK MASS X2;CARDIAC CATH 09/12) Surgeries: Abdominal (gastric sleeve), Cardiac, Gallbladder Respiratory History of Respiratory Disorde: Yes Respiratory Disorders: Sleep Apnea, COPD, Emphysema Cardiovascular History of Cardiac Disorders: Yes (CARDIAC CATH 09/12/20--NO INTERVENTION/DR. ZUÑIGA) Cardiac Disorders: High Cholesterol, Hypertension Neurological History of Neurological Disord: No Reproductive System Sexually Transmitted Disease: No HIV/AIDS: No Genitourinary History of Genitourinary Disor: No Gastrointestinal History of Gastrointestinal Di: Yes Gastrointestinal Disorders: Gastroesophageal Reflux, Chronic Constipation, Gall Bladder Disease Musculoskeletal History of Musculoskeletal Dis: Yes Musculoskeletal Disorders: Arthritis Endocrine History of Endocrine Disorders: Yes Endocrine Disorders: Diabetes, Non-Insulin dep HEENT History of HEENT Disorders: Yes (GLASSES, DENTURES) Loss of Vision: Denies Hearing Impairment: Denies Cancer History of Cancer: No Psychosocial History of Psychiatric Problem: Yes Behavioral Health Disorders: Depression Integumentary History of Skin or Integumenta: No Blood Transfusions History of Blood Disorders: No Adverse Reaction to a Blood Tr: No (N/A) Family Medical History Significant Family History: Heart Disease, Cancer Family Medial History: Dementia 19 FATHER, FH: pulmonary embolism Myocardial infarction G8 BROTHER, Review of Systems-General Constitutional: No chills, No diaphoresis, No weakness EENTM: No blurred vision, No double vision, No mouth swelling, No epistaxis Respiratory: No cough, No short of breath; other (pain with deep breaths) Cardiovascular: No chest pain; edema; No palpitations Gastrointestinal: abdominal pain; No jaundice, No melena, No nausea, No vomiting Genitourinary: No dysuria, No frequency, No hematuria Musculoskeletal: joint pain, joint swelling, muscle stiffness Skin: No change in color, No change in hair/nails Psychiatric/Neurological: Depressed; Denies Seizure, Denies Tremors Physical Exam-General Problems Physical Exam Vital Signs Vital Signs - First Documented 05/27/22 13:25 Temp 37.2 Pulse 92 Resp 18 B/P (MAP) 128/77 (94) Pulse Ox 94 O2 Delivery Room Air Capillary Refill : Less Than 3 Seconds General Appearance: mild distress, obese Eyes: Bilateral Eye PERRL, Bilateral Eye EOMI HEENT: pharynx normal; No scleral icterus (R), No scleral icterus (L); other (poor dentition) Neck: non-tender, supple Respiratory: chest non-tender, lungs clear, normal breath sounds, no respiratory distress, no accessory muscle use Cardiovascular: regular rate, rhythm, no murmur Gastrointestinal: soft, no organomegaly, no pulsatile mass, hernia (incisional and umbilical) Rectal: deferred Back: no CVA tenderness, no vertebral tenderness Extremities: no calf tenderness, normal capillary refill, pedal edema (+1) Neurologic/Psychiatric: wheel lacer and truer II-XII nml as tested, alert, normal mood/affect, oriented x 3 Skin: normal color, warm/dry Lymphatic: no adenopathy (neck, axilla or groin) Data Review Labs Laboratory Tests 05/27/22 13:33: White Blood Count 5.8, Red Blood Count 5.24, Hemoglobin 16.2, Hematocrit 47, Mean Corpuscular Volume 90, Mean Corpuscular Hemoglobin 31, Mean Corpuscular Hemoglobin Concent 34, Red Cell Distribution Width 13.5, Platelet Count 166, Mean Platelet Volume 9.0, Immature Granulocyte % (Auto) 1, Neutrophils (%) (Auto ) 77H, Lymphocytes (%) (Auto) 11L, Monocytes (%) (Auto) 10, Eosinophils (%) (Auto) 1, Basophils (%) (Auto) 1, Neutrophils # (Auto) 4.5, Lymphocytes # (Auto) 0.7L, Monocytes # (Auto) 0.6, Eosinophils # (Auto) 0.0, Basophils # (Auto) 0.0, Immature Granulocyte # (Auto) 0.0, Sodium Level 139, Potassium Level 3.6, Chloride Level 107, Carbon Dioxide Level 22, Anion Gap 10, Blood Urea Nitrogen 15, Creatinine 0.95, Estimat Glomerular Filtration Rate 85, BUN/Creatinine Ratio 16, Glucose Level 226H, Calcium Level 8.9, Corrected Calcium 9.1, Total Bilirubin 0.8, Aspartate Amino Transf (AST/SGOT) 19, Alanine Aminotransferase (ALT/SGPT) 17, Alkaline Phosphatase 36L, C-Reactive Protein High Sensitivity 6.51H, Total Protein 6.8, Albumin 3.7 05/27/22 13:54: Urine Color YELLOW, Urine Clarity CLEAR, Urine pH 5.5, Urine Specific [place] 1.020, Urine Protein NEGATIVE, Urine Glucose (UA) 3+H, Urine Ketones NEGATIVE, Urine Nitrite NEGATIVE, Urine Bilirubin NEGATIVE, Urine Urobilinogen 0.2, Urine Leukocyte Esterase NEGATIVE, Urine RBC (Auto) 1+H, Urine RBC NONE, Urine WBC NONE, Urine Squamous Epithelial Cells NONE, Urine Crystals NONE, Urine Bacteria NEGATIVE, Urine Casts NONE, Urine Mucus NEGATIVE, Urine Culture Indicated NO Radiology Date of Exam:05/27/22 CT ABDOMEN/PELVIS W EXAMINATION: CT abdomen and pelvis with intravenous contrast. TECHNIQUE: Multiple contiguous axial images were obtained through the abdomen and pelvis after the uneventful administration of intravenous contrast. All CT scans use one or more of the following dose optimizing techniques: automated exposure control, MA and/or KvP adjustment based on patient size and exam type or iterative reconstruction. HISTORY: Right-sided abdominal pain COMPARISON: 06/17/2020 FINDINGS: Lung bases: Bibasilar dependent atelectasis. Solid organs: The liver is normal without focal lesion. The gallbladder is surgically absent. There is no biliary ductal dilation. Pancreas is normal. Spleen is enlarged measuring up to 17.1 cm. Adrenal glands are normal. There are bilateral renal cortical lesions, many of which are too small to characterize but largest of which is mildly hyperdense measuring up to 1.7 cm. Bowel: Surgical changes from gastric bypass surgery. No bowel obstruction. There is scattered colonic diverticulosis. The appendix is normal. Peritoneum: There is a loculated fluid collection within the posterior perihepatic space with adjacent surgical clip as well as a 0.8 cm hyperdensity which may represent a dropped gallstone. Collection measures up to 9.2 x 2.6 cm. No suspicious lymphadenopathy. Vasculature: Calcification of the aorta without aneurysm. Musculoskeletal: Degenerative changes of the spine without suspicious osseous lesion or compression fracture. There is a redemonstrated right gluteal hypodense lesion measuring up to 5 cm. There is a right inguinal hernia containing a loop of bowel and fat without obstruction. Pelvis: The prostate gland is normal. The urinary bladder is normal. IMPRESSION: 1. Findings concerning for a dropped gallstone within the posterior perihepatic space with surrounding loculated fluid collection. 2. Colonic diverticulosis without findings of diverticulitis. Dictated by: Dictated on workstation # [id number] Dict: 05/27/22 1501 Trans: 05/27/22 1512 CV [id number] Interpreted by: ALONDRA HAIRSTON DO Electronically signed by: ALONDRA HAIRSTON DO 05/27/22 1519 Assessment/Plan Assessment/Plan Assessment/Plan Intra-Abdominal Abscess - probably secondary to gallstone COPD, Sleep Apnea HTN DM Hernia - incarcerated inicsional and Umbilical Pt has what looks like an abscess (well developed) in the RUQ above the liver. Within this fluid collection (and possible rind) there appears to be a calcified object (probable gallstone) and some clips. His pain has been getting worse over the past few weeks. He does not have an elevated WBC and his vitals are basically stable. However, his CRP is very elevated at 6.51. I did review the CT images myself and compared them to the Chest/Abd CT done a year ago. At that time there was some fluid, the same calc ification and clips. However there was less fluid compared to now. In addition, there appears to be a rind now and therefore it looks more like a phlegmon. I gave the pt 3 options; 1) go home on oral ABX for scheduled outpt surgery or no surgery 2) get admitted and started on IV ABX with possible IR intervention to drain the fluid 3) admit, IV ABX and go to the OR to drain/scrape area and take out calcification and clips that are probably causing the problem. I also talke to pt about the fact that he had a very gallbladder when it was taken out in 2019; very infected with fluid all over abdomen and had to have a drain left in place. I went over risks and complications not limited to pain, bleeding, infection, scar, damage to bowel, he could even get septic which could lead to . I told him that IV ABX were better than oral and that surgery was probably better than just draining fluid, because if it is the stone/clips causing problems and they are not taking out then it will most likely come back. He stated that he needed to work and "get everything in order"; he wants to go home. However, he did agree to going to the OR because he wants to get the "stone" and clips out. I did tell him that he may have another drain left in place and while he most likely could go home there is a possibility he would have to stay over night. I also told him to stop his aspirin; but he will still have increased risk of bleeding. He also can't eat anything solid for 8 hours before surgery (surgery tentatively planned for 9am), can have a coffee but not after 5am. He understood and all questions answered to his and his 's satisfaction. I discussed the case with Dr. Rosas and we planned on sending him home on Omnicef and yl. HARPER RICHARDS DO May 27, 2022 17:02
[2022-05-27] MEDS ORDERED: CEFD300C3 PO (17:12)
[2022-05-27] MEDS ORDERED: METR-145 PO (17:12)
[2022-05-27 17:20] VITALS: BP 148/99
[2022-05-30] MEDS ORDERED: ACHD5005 PO (13:59)
== END 2022-05-27 17:24 | disposition home or self-care (01) ==
LOC: EDUNIT# 13:17 → ER 13:18
DX: L08.89 Other specified local infections of the skin and subcutaneous tissue (principal); G47.30 Sleep apnea, unspecified; Z99.89 Dependence on other enabling machines and devices
CPT/HCPCS: 36415; 74177; 80053; 81000; 85025; 86141

== ENCOUNTER 2022-05-29 08:23 | Outpatient (CLI) | payer MEDICARE ==
[~2022-05-29] VITALS: Ht 179.1 cm; Wt 117.0 kg
[~2022-05-29 08:23] MED LIST changes: +CEFD300C3 PO; +METR-145 PO
[2022-05-29] MEDS ORDERED: DAPA10TA PO (15:09)
[2022-05-29] MEDS ORDERED: TMSL.4C PO (15:09)
[2022-05-29] MEDS ORDERED: SEMA7TAB2 PO (15:09)
[2022-05-29] MEDS ORDERED: CYAN250014 PO (15:09)
[2022-05-29] MEDS ORDERED: FINA5TAB6 PO (15:09)
[2022-05-29] MEDS ORDERED: RT-ALBUINH IH (15:09)
[2022-05-29] MEDS ORDERED: ATOR10TA66 PO (15:09)
[2022-05-29] MEDS ORDERED: OMG1KC PO (15:09)
[2022-05-30] MEDS ORDERED: ACHD5005 PO (13:59)
== END 2022-05-29 15:25 ==
LOC: PREOP 08:23
PROVIDERS: ATTEND Surgery
DX: Z01.818 Encounter for other preprocedural examination (principal); L02.211 Cutaneous abscess of abdominal wall

== ENCOUNTER 2022-05-30 07:58 | Day surgery (SDC) | payer MEDICARE ==
[~2022-05-30] VITALS: Ht 179.1 cm; Wt 117.0 kg
[2022-05-30] VITALS (10 sets, daily range): BP systolic 134–154; BP diastolic 71–110
[~2022-05-30 07:58] MED LIST changes: +ATOR10TA66 PO; +CYAN250014 PO; +DAPA10TA PO; +FINA5TAB6 PO; +OMG1KC PO; +RT-ALBUINH IH; +SEMA7TAB2 PO; +TMSL.4C PO
[2022-05-30] MEDS ORDERED: ceFAZolin INJECTION 1,000 MG VIAL IV ONE (08:15)
[2022-05-30] MEDS ORDERED: LACTATED RINGERS 1,000 ML IV PRN (08:15)
[2022-05-30] MEDS ORDERED: ceFAZolin 2 GM/50 ML (PRE-MIXED) IV ONE (08:30)
[2022-05-30] MEDS ORDERED: LIDOCAINE/EPI 2% 1:100,00 (XYLOCAINE) 20 ML VIAL ONE (09:03)
--- NOTE | 2022-05-30 09:07 | Progress Note-Pre Operative ---
Pre-Operative Progress Note H&P Reviewed The H&P was reviewed, patient examined and no changes noted. Time Seen by Provider: 08:59 Date H&P Reviewed: May 30, 2022 Time H&P Reviewed: 08:59 Pre-Operative Diagnosis: Intra-abdominal abscess HARPER RICHARDS DO May 30, 2022 09:07
[2022-05-30] MEDS ORDERED: proPOfol 200 MG/20 ML (DIPRIVAN) VIAL IV ONE (09:32)
[2022-05-30] MEDS ORDERED: fentaNYL INJ 100 MCG/2 ML AMP ONE (09:32)
[2022-05-30] MEDS ORDERED: ROCURONIUM 50 MG/5 ML (ZEMURON) VIAL IV ONE (09:32)
[2022-05-30] MEDS ORDERED: LIDOCAINE PF 2% 5 ML (XYLOCAINE) VIAL ONE (09:32)
[2022-05-30] MEDS ORDERED: ONDANSETRON 4 MG/2 ML (SDV) Z0FRAN ONE (09:32)
[2022-05-30] MEDS ORDERED: SEVOFLURANE (ULTANE) 15 ML INHAL SOLN ONE ×2 (09:32→11:17)
[2022-05-30] MEDS ORDERED: MIDAZOLAM 2 MG/2 ML (VERSED) VIAL ONE (09:33)
[2022-05-30] MEDS ORDERED: NEOSTIGMINE (BLOXIVERZ ) 1 MG/1ML 10 ML VIAL ONE (11:11)
[2022-05-30] MEDS ORDERED: GLYCOPYRROLATE 0.2 MG/ML (ROBINUL) 2 ML VIAL ONE (11:11)
[2022-05-30] MEDS ORDERED: KETOROLAC 30 MG/ML VIAL ONE (11:13)
--- NOTE | 2022-05-30 11:24 | Progress Note-Post Operative ---
Post-Operative Progess Note Surgeon (s)/Kitchen Runner (s) Surgeon HARPER RICHARDS DO Kitchen Runner: VANITA Tate Pre-Operative Diagnosis Intra-abdominal abscess Post-Operative Diagnosis Intra-abdominal abscess Adhesions Retained gallstones Procedure & Operative Findings Date of Procedure 05/30/22 Procedure Performed/Findings 1) Diagnostic Laparoscopy with drainage of abscess and washout, drain placement 2) Lysis of Adhesions 3) Removal of gallstones Anesthesia Type GET Estimated Blood Loss Estimated blood loss (mL): 100ml Specimens/Packing Specimens Removed gallstones HARPER RICHARDS DO May 30, 2022 11:24
--- NOTE | 2022-05-30 11:26 | Discharge Inst-Surgical ---
Discharge Inst-Surgical Depart Medication/Instructions New, Converted or Re-Newed RX: Other (Use home meds) Patient Instructions Follow up Appt: Make appointment for 1 week. [phone] Instructions: No lifting greater than 20 pounds. No strenuous activity. May shower in 24 hours, no tub bath or soaking. Use incentive spirometer at home as directed. No Smoking Skin/Wound Care: May remove bandages in am. You need to leave the Dermabond on incision it will fall off on it's own. Symptoms to Report: Appetite Changes, Extremity Discoloration, Numbness/Tingling, Swelling Increased, Bleeding Excessive, Eyesight Changes, Pain Increased, Urine Color Change, Constipation(Persistent), Fever over 101 degree F, Pain/Pressure in chest, Urinating Difficulty, Cough Up/Vomit Blood, Heart Beat Irreg/Pounding, Pain/Pressure in jaw, Cramps in feet or legs, Lightheadedness, Pain/Pressure in shoulder, Diarrhea(Persistent), Memory Changes Suddenly, Questions/Concerns, Weight gain consecutive days, Dizziness/Fainting, Nausea/Vomiting, Shortness of Breath, Weight gain over 2 pounds If questions or concerns contact your physician Or seek help at emergency department. Activity Activity as Tolerated: Yes Activity Instructions: Avoid Stress to Incision Driving Instructions: No Driving/Refer to Dr. Thomas Discharge Diet: No Restrictions Diet After 24 Hours: Clear Liquid if Nauseous If Any Problems/Questions/Issu: Contact Your Physician, Go to Emergency Room Skin/Wound Care Infection Signs and Symptoms: Increased Redness, Foul Odor of Wound, Increased Drainage, Skin Itchy or Has a Rash, Increased Swelling, Temperature Above 101 F Wound Care Comment: ROCAEL drain teaching Bathing Instructions: Shower Stitches/[place]/Dermabond Dis: Dermabond, Care of Stitches HARPER RICHARDS DO May 30, 2022 11:26
[2022-05-30] MEDS ORDERED: ONDANSETRON 4 MG/2 ML (SDV) Z0FRAN IVP PRN (11:45)
[2022-05-30] MEDS ORDERED: HYDROmorphone 2 MG/ML VIAL (DILAUDID) IV ONE (11:45)
--- NOTE | 2022-05-30 11:49 | Anesthesia-General Post-Op ---
General Patient Condition Mental Status/LOC: Same as Preop Cardiovascular: Satisfactory Nausea/Vomiting: Absent Respiratory: Satisfactory Pain: Controlled Complications: Absent Post Op Complications Complications None Follow Up Care/Instructions Patient Instructions None needed. Anesthesia/Patient Condition Patient Condition Patient is doing well, no complaints, stable vital signs, no apparent adverse anesthesia problems. No complications reported per nursing. D/C home per [facility] Criteria: Yes GILLIAN RUIZ CRNA May 30, 2022 11:49
[2022-05-30] MEDS ORDERED: ACHD5005 PO (13:59)
--- NOTE | 2022-05-31 01:31 | OPERATIVE REPORT ---
DATE OF SERVICE: PREOPERATIVE DIAGNOSIS: Intra-abdominal abscess. POSTOPERATIVE DIAGNOSES: 1. Intraabdominal abscess. 2. Adhesions. 3. Retained gallstones. PROCEDURE: 1. Diagnostic laparoscopy with washout and drain placement. 2. Lysis of adhesions. 3. Removal of gallstone. SURGEON: Deacon Quintero DO MEDIA PROMOTER: Gavin Kiran MS4. ANESTHESIA: General endotracheal tube. SPECIMEN: Gallstones. BLOOD LOSS: Approximately 100 mL. FLUIDS: Per anesthesia. POSTOPERATIVE CONDITION: Stable. INDICATION FOR PROCEDURE: The patient is a 72-year-old male who came in with increasing abdominal pain over few months, was seen in the ER, but he wanted to go home and get everything sorted out. On CAT scan looked like he had an abscess with a stone in this abscess. FINDINGS: The patient had multiple adhesions in the abdomen. He did have an abscess and we did find some stones and a clip in this abscess. PROCEDURE NOTE: After informed consent was obtained, the patient was brought to the operating room, placed on the operating table in supine position. He was sterilely prepped and draped in normal fashion. Local lidocaine was used to infiltrate the skin above the umbilicus, right near the previous incision, made an incision with 11 blade, carried down through skin into subcutaneous tissue, then deepened down to subcutaneous tissue with Bovie electrocautery down to fascia. Fascia was incised with Bovie electrocautery, bluntly entered the abdomen, swept a finger around, placed 0 Vicryl [id number] suture, then placed a limited trocar port under direct visualization. Created pneumoperitoneum. Upon entry, noted adhesions, took a picture of this and then placed one port in the right mid abdomen, using local lidocaine, 11 blade for stab incision and VersaStep system, all done under direct visualization, then through this port using the scissors with cautery, started taking down all the adhesions. Once we will take down all of the omentum that was up on the abdominal wall, then elected to place another port in the subxiphoid area with local lidocaine, 11 blade for stab incision and VersaStep system, all done under direct visualization. I started taking down more adhesions across the liver, pushing the liver down, doing some blunt dissection as well as some irrigation and hydrodissection, carefully taking the liver off of the wall of the abdomen and going up again some blunt dissection as well as with hydrodissection, actually able to get into this abscess cavity and we immediately did get out some purulent fluid. Picture was taken. This was all suctioned up. It was then stick the suction body artist into the cavity, suction all of the purulence out and infiltrated and then copiously irrigated with normal saline, suctioned this out. I could see a stone. Able to grasp the stone and pulled this out, placed a bag in the abdomen, placed the stone in the bag and then removed through supraumbilical incision. Placed the port back in the abdomen, found another stone and able to grasp this and pulled this out through the port, was used to grasp. There was some bleeding from trying get into the right flank area, tried to control this with the LigaSure, still oozing a little bit, placed Surgicel as well as then Gelfoam and then one more Surgicel on top. The bleeding stopped. There was no purulent fluid in the rest of the abdomen, had flushed out with about 3 liters of normal saline. At this point, then elected to place a drain placed a drain through the supraumbilical port, then grasped this through the right lateral port and then pulled this out, make sure this, then went up into the top of the liver and across the area where we had removed the abscess. This was then sutured in place with a 2-0 nylon, looked again, everything looked good. There was no bleeding and at this point then the patient had been slightly reverse Trendelenburg and rotated left. He was then placed supine, removed all ports under direct visualization, allowed pneumoperitoneum to escape, closed supraumbilical incision, closing the fascia with 0 Vicryl suture previously placed. Copiously irrigated our incisions with normal saline and closed the 5 mm incisions with a 4-0 undyed Monocryl subcuticular stitch and closed the supraumbilical incision with a 4-0 undyed Monocryl running subcuticular stitch. Area was cleaned and dried. Dermabond placed as well as dressings. The patient tolerated the procedure. Sponge, instrument and needle count correct at the end of the case. Job ID: [id number] DocumentID: [id number] Dictated Date: 05/30/2022 16:58:02 Pharmacist In Charge Owner Date: 05/31/2022 01:31:06 Dictated By: DEACON QUINTERO, DO
== END 2022-05-30 14:35 | disposition home or self-care (01) ==
LOC: SDC 07:58
PROVIDERS: ATTEND Surgery
DX: K65.1 Peritoneal abscess (principal); K66.0 Peritoneal adhesions (postprocedural) (postinfection); K91.86 Retained cholelithiasis following cholecystectomy; J44.9 Chronic obstructive pulmonary disease, unspecified; G47.30 Sleep apnea, unspecified; I10 Essential (primary) hypertension; K42.0 Umbilical hernia with obstruction, without gangrene; K43.0 Incisional hernia with obstruction, without gangrene; E11.9 Type 2 diabetes mellitus without complications; E66.9 Obesity, unspecified; Z68.37 Body mass index [BMI] 37.0-37.9, adult; Z79.82 Long term (current) use of aspirin; Z79.84 Long term (current) use of oral hypoglycemic drugs; Z79.51 Long term (current) use of inhaled steroids
CPT/HCPCS: 82947; 87081

== ENCOUNTER → 2022-07-09 | Outpatient (CLI) | payer MEDICARE ==
[~2022-07-09] MED LIST changes: +IOHEXOL 350 MG/ML 100 ML (OMNIPAQUE 350) VIAL IV ONE; +NS 100 ML (IVPB) BAG IV ONE
[2022-07-09 14:29] LABS: CREATININE SERUM 1.02 MG/DL (0.60-1.30)
--- NOTE | 2022-07-09 16:23 | Diagnostic Imaging Report ---
EXAMINATION: CT abdomen and pelvis with intravenous contrast. TECHNIQUE: Multiple contiguous axial images were obtained through the abdomen and pelvis after the uneventful administration of intravenous contrast. All CT scans use one or more of the following dose optimizing techniques: automated exposure control, MA and/or KvP adjustment based on patient size and exam type or iterative reconstruction. HISTORY: ABSCESS OF SKIN AND/OR SUBCUTANEOUS TISSUE COMPARISON: 05/27/2022 FINDINGS: Lung bases: There is a small right pleural effusion. Bibasilar atelectasis. Solid organs: The liver is normal without focal lesion. The gallbladder is surgically absent. There is no biliary ductal dilation. Pancreas is normal. Spleen is normal. Adrenal glands are normal. Stable mild right hydronephrosis. Bilateral renal cysts are present. Bowel: Surgical changes of the stomach and small bowel. No bowel obstruction. There is scattered colonic diverticulosis. Moderate amount of stool seen throughout the colon. The appendix is normal. Peritoneum: There is increasing size of a loculated air and fluid collection within the right upper abdomen lateral to the liver measuring up to 12.5 x 5.0 cm. This does demonstrate a thick peripheral wall. There is loculated fluid which extends more inferiorly along the wall near the right lower quadrant. No suspicious lymphadenopathy. Vasculature: Calcification of the aorta without aneurysm. Musculoskeletal: Degenerative changes of the spine without suspicious osseous lesion or compression fracture. Pelvis: The prostate gland is normal. The urinary bladder is normal. IMPRESSION: 1. Increasing size of a loculated air and fluid collection within the right upper and lower abdomen lateral to the liver margin. Dictated by: Dictated on workstation # [id number]
== END ==
LOC: RAD 15:15
PROVIDERS: ATTEND Surgery
DX: L02.91 Cutaneous abscess, unspecified (principal)
CPT/HCPCS: 36415; 74177; 82565; 84520

== ENCOUNTER 2022-07-25 05:28 | Outpatient (CLI) | payer MEDICARE ==
[~2022-07-25] VITALS: Ht 177.8 cm; Wt 110.0 kg
[~2022-07-25 05:28] MED LIST changes: -IOHEXOL 350 MG/ML 100 ML (OMNIPAQUE 350) VIAL IV ONE; -NS 100 ML (IVPB) BAG IV ONE
== END 2022-07-25 10:25 | disposition home or self-care (01) ==
LOC: PREOP 05:28
PROVIDERS: ATTEND Surgery
DX: Z01.818 Encounter for other preprocedural examination (principal)

== ENCOUNTER 2022-07-28 11:57 | Day surgery (SDC) | payer MEDICARE ==
[2022-07-28] VITALS (10 sets, daily range): BP systolic 123–168; BP diastolic 75–92
[~2022-07-28] VITALS: Ht 177.8 cm; Wt 110.0 kg
[2022-07-28] MEDS ORDERED: ceFAZolin INJECTION 1,000 MG VIAL IV ONE (12:00)
[2022-07-28] MEDS ORDERED: LIDOCAINE PF 2% 5 ML (XYLOCAINE) VIAL ONE (12:26)
[2022-07-28] MEDS ORDERED: fentaNYL INJ 100 MCG/2 ML AMP ONE (12:26)
[2022-07-28] MEDS ORDERED: ROCURONIUM 10 MG/ML 5 ML SYRINGE IV ONE (12:26)
[2022-07-28] MEDS ORDERED: SEVOFLURANE (ULTANE) 15 ML INHAL SOLN ONE ×3 (12:26→16:34)
[2022-07-28] MEDS ORDERED: proPOfol 200 MG/20 ML (DIPRIVAN) VIAL IV ONE (12:26)
[2022-07-28] MEDS ORDERED: MIDAZOLAM 2 MG/2 ML (VERSED) VIAL ONE (12:26)
[2022-07-28] MEDS ORDERED: BUP/EPI 0.5% 1:200,000 (MARCAINE) 10ML VIAL IJ ONE (12:32)
[2022-07-28] MEDS ORDERED: LACTATED RINGERS 1,000 ML IV PRN (12:45)
[2022-07-28] MEDS ORDERED: ceFAZolin INJECTION 2,000 MG in NS (IVPB) 50 ML IV NR (13:30)
--- NOTE | 2022-07-28 14:43 | Progress Note-Pre Operative ---
Pre-Operative Progress Note Date of Available H&P: Jul 24, 2022 Date H&P Reviewed: Jul 28, 2022 Time H&P Reviewed: 14:42 History & Physical: H&P Reviewed, Patient Examed, No changes noted Pre-Operative Diagnosis: Abdominal abscess HARPER RICHARDS DO Jul 28, 2022 14:43
[2022-07-28] MEDS ORDERED: BUP/EPI 0.5% 1:200,000 (SENSORCAINE) 30 ML VIAL INJ ONE (15:25)
[2022-07-28] MEDS ORDERED: NEOSTIGMINE (BLOXIVERZ ) 1 MG/1ML 10 ML VIAL ONE (16:28)
[2022-07-28] MEDS ORDERED: GLYCOPYRROLATE 0.2 MG/ML (ROBINUL) 2 ML VIAL ONE (16:28)
[2022-07-28] MEDS ORDERED: morphine INJ 10 MG/ML 1ML (SYR OR VIAL) ONE (16:34)
--- NOTE | 2022-07-28 16:39 | Progress Note-Post Operative ---
Post-Operative Progess Note Surgeon (s)/Enterprise Software Engineer (s) Surgeon HARPER RICHARDS DO Enterprise Software Engineer: Monet Pre-Operative Diagnosis Abdominal abscess Post-Operative Diagnosis same Procedure & Operative Findings Date of Procedure 07/28/22 Procedure Performed/Findings Laparoscopic drainage of intra-abdominal abscess and drain placement Anesthesia Type GET Estimated Blood Loss Estimated blood loss (mL): appx 100ml Specimens/Packing Specimens Removed inflammatory tissue abscess culture HARPER RICHARDS DO Jul 28, 2022 16:39
[2022-07-28] MEDS ORDERED: ONDANSETRON 4 MG/2 ML (SDV) Z0FRAN IVP PRN ×2 (16:45→17:00)
[2022-07-28] MEDS ORDERED: fentaNYL INJ 100 MCG/2 ML AMP IVP ONE (17:00)
[2022-07-28] MEDS: LACTATED RINGERS 1,000 ML IV SCH ×2 (17:14→18:44)
[2022-07-28] MEDS ORDERED: PIPERACILLIN SODIUM/TAZOBACTAM 4.5 GM in NS (IVPB) 100 ML IV NR (19:00)
[2022-07-28] MEDS ORDERED: QUEtiapine 200 MG (SEROquel) TAB IMMEDIATE RELEASE PO SCH (21:00)
--- NOTE | 2022-07-28 22:06 | OPERATIVE REPORT ---
DATE OF SERVICE: 07/28/2022 PREOPERATIVE DIAGNOSIS: Abdominal abscess. POSTOPERATIVE DIAGNOSIS: Abdominal abscess. PROCEDURE: Laparoscopic drainage of intra-abdominal abscess with drain placement. SURGEON: Dr. Quintero. GRADES 1 THROUGH 6 TEACHER: Dr. Healy. ANESTHESIA: General endotracheal tube. SPECIMEN: Inflammatory tissue as well as abscess culture. BLOOD LOSS: Approximately 100 mL. FLUIDS: Per anesthesia. POSTOPERATIVE CONDITION: Stable. INDICATION FOR PROCEDURE: The patient is a 72-year-old male who has an intra-abdominal abscess seen on CT. He had a previous abscess from a stone. FINDINGS: The patient had an abscess that was actually very well walled off the very thick peel appeared to actually almost not be in the abdomen itself, omentum completely covered by the peel and actually by the ascending colon. PROCEDURE NOTE: After informed consent was obtained, the patient was brought to the operating room, placed on the table in supine position, sterilely prepped and draped in normal fashion. Local lidocaine was used to treat the skin above the umbilicus. I made the incision with 11 blade, carried down through skin into subcutaneous tissue, then deepened down to subcutaneous tissue with Bovie electrocautery down to fascia. Fascia was incised with Bovie electrocautery, bluntly entered the abdomen, swept a finger around, placed 11 mm trocar port under direct visualization. Created pneumoperitoneum. There were some adhesions in the abdomen. These were carefully taken down with LigaSure. We had placed another 5 mm port in the right lower quadrant using local lidocaine, 11-blade for stab incision and VersaStep system, all done under direct visualization. I started taking these adhesions down, so we could see the abdominal wall. There were some adhesions on top of the liver. These were carefully taken down as well, as well as some just to the right of midline. Once we had all this freed up, placed another 5 mm port just off the midline to the right subxiphoid using local lidocaine, 11 blade for stab incision and VersaStep system, all done under direct visualization and then carefully started teasing the liver off of the sidewall, pushed through what looked like a peel and got out some purulent fluid, took pictures of this and then suctioned this out to be sent to pathology. Then used the LigaSure to come through this peel up along the sidewall like above the liver, opened this up, getting out lot of purulent fluid, then we copiously irrigated. There was some more fluid coming distally. We came across this distally. There was the ascending colon was attached to the abdominal wall, carefully pushed this away, used some LigaSure above the colon to take down the adhesions and then using some blunt dissection, able to carefully push this away and separate this and then actually get into the lower portion. Again, it was very large thick peel that had encapsulated this purulent fluid, able to open this up all the way, flushed out the abdomen and this area of purulence and abscess with about 6 liters of normal saline. Once this was completely flushed out, suctioned almost all of this out. I then elected to place two Andre drains, pushed in through the midline, placed one going superiorly and one going inferiorly on the right paracolic gutter and in the abscess cavity, one was brought out through the subxiphoid incision, one was brought out through the right lower quadrant incision. These were sutured in place with 2-0 nylon. There, we had left the camera in. They were in good position and at this point, then allowed the pneumoperitoneum to remove the 11 mm trocar port and then closed the supraumbilical incision with 0 Vicryl [id number] suture. Copiously irrigated this area with normal saline and then closed the skin with 4-0 undyed Monocryl 3 interrupted subcuticular stitches. Area was cleaned and dried. Dermabond placed and the ROCAEL drains were hooked up to bulb suction. The patient tolerated the procedure. Sponge and needle count correct at the end of the case. Dr. Healy assisted in this case helping to make incisions, close incisions, identify anatomy and hold anatomy out of way. Job ID: [id number] DocumentID: [id number] Dictated Date: 07/28/2022 17:20:12 Home Security Alarm Installer Date: 07/28/2022 22:05:39 Dictated By: DO SAWYER BAE
[2022-07-29 00:31] VITALS: BP 102/69
[2022-07-29] MEDS: PIPERACILLIN SODIUM/TAZOBACTAM 4.5 GM in NS (IVPB) 100 ML IV SCH ×2 (01:02→08:26)
[2022-07-29 04:27] VITALS: BP 112/71
[2022-07-29 07:28] VITALS: BP 128/65
--- NOTE | 2022-07-29 08:03 | Progress Note - Surgery ---
WARD IBARRA 07/29/22 0803: Subjective Date Seen by a Provider: Jul 29, 2022 Time Seen by a Provider: 07:50 Subjective/Events-last exam Patient is doing well today. He says his pain is at a 3/10 and he has only had to take one pain pill following his surgery. He has not had a BM or flatus. His rico is still in place. He has not been out of bed since surgery, he did endorse using his IS every commercial he sees. He is tolerating a clear liquid diet well. Review of Systems General: Fatigue (claimed he has felt this way since his initial surgery) Pulmonary: No Dyspnea, No Cough Cardiovascular: No: Chest Pain, Palpitations, Lt Headedness Gastrointestinal: Abdominal Pain; No: Nausea, Vomiting Genitourinary: No Hematuria; Other (experiencing no discomfort from rico) Objective Exam Vital Signs Date Time Temp Pulse Resp B/P (MAP) Pulse Ox O2 Delivery O2 Flow Rate FiO2 07/29/22 07:30 Nasal Cannula 2.00 07/29/22 07:28 36.7 82 18 128/65 (86) 95 Nasal Cannula 2.00 07/29/22 04:27 36.6 84 20 112/71 (85) 95 Nasal Cannula 2.00 07/29/22 00:31 37.6 92 20 102/69 (80) 94 Nasal Cannula 2.00 07/28/22 21:15 Nasal Cannula 2.00 07/28/22 20:10 Nasal Cannula 2.00 07/28/22 19:43 36.7 87 19 123/75 (91) 95 Nasal Cannula 2.00 07/28/22 17:50 35.9 82 17 168/86 (113) 93 Nasal Cannula 2.00 07/28/22 17:40 93 Nasal Cannula 2.00 07/28/22 17:40 36.4 18 151/85 (107) 94 Nasal Cannula 2.00 07/28/22 17:40 Nasal Cannula 2.00 07/28/22 17:32 Nasal Cannula 2.00 07/28/22 17:30 18 155/86 (109) 93 Nasal Cannula 2.00 07/28/22 17:28 Room Air 07/28/22 17:20 18 166/92 (116) 97 OxyMask 2.00 07/28/22 17:20 OxyMask 3.00 07/28/22 17:17 OxyMask 3.00 07/28/22 17:10 18 158/89 (112) 97 OxyMask 6.00 07/28/22 17:05 OxyMask 6.00 07/28/22 17:00 20 151/87 (108) 95 OxyMask 6.00 07/28/22 16:55 OxyMask 6.00 07/28/22 16:50 22 145/84 (104) 94 OxyMask 6.00 07/28/22 16:43 36.2 21 153/79 (103) 97 OxyMask 6.00 07/28/22 16:43 OxyMask 6.00 07/28/22 12:00 37.1 77 20 123/90 (101) 94 Room Air I & O 07/29/22 06:59 Intake Total 2700 ml Output Total 2080 ml Balance 620 ml Capillary Refill : General Appearance: No Apparent Distress, Obese HEENT: PERRL/EOMI, Moist Mucous Membranes Neck: Non Tender, Supple Respiratory: Lungs Clear, Normal Breath Sounds, No Accessory Muscle Use, No Respiratory Distress Cardiovascular: Regular Rate, Rhythm, No Murmur Peripheral Pulses: 2+ Dorsalis Pedis (R), 2+ Left Dors-Pedis (L), 2+ Radial Pulses (R), 2+ Radial Pulses (L) Gastrointestinal: normal bowel sounds, soft, tenderness (diffuse tenderness to palpation, worst at RUQ), other (midline incision covered with surgical glue c/d/i. Sub-xiphoid drain (Drain 1) reportedly had output of 20ml last night, RLQ drain (Drain 2) had output of 90ml, both draining mixture of blood and serous fluid) Extremity: Non Tender, No Calf Tenderness Neurologic/Psychiatric: Alert, Oriented x3, Normal Mood/Affect Skin: Normal Color, Warm/Dry Lymphatic: No Adenopathy (cervical) Results Lab Laboratory Tests 07/28/22 12:13: Glucometer 140H Microbiology 07/28/22 Gram Stain - Final, Resulted 07/28/22 Anaerobic Culture, Resulted Pending 07/28/22 Surgical Culture - Preliminary, Resulted Gram Negative George Assessment/Plan Assessment/Plan Assessment/Plan S/P Laparoscopic drainage of intrabdominal abscess POD#1 Abscess culture resulted gram negative george, will await sensitivity. Maintain patient on zosyn. Lortab providing adequate pain control. Removing rico this AM. Encouraged patient to continue using IS. He needs to ambulate today. Advance to soft diet. HARPER RICHARDS DO 07/29/22 1459: Subjective Time Seen by a Provider: 13:04 Subjective/Events-last exam Pt seen and examined, states pain is controlled and he is tolerating diet. Review of Systems General: Fatigue (claimed he has felt this way since his initial surgery) Pulmonary: No Dyspnea, No Cough Cardiovascular: No: Chest Pain, Palpitations Gastrointestinal: Abdominal Pain; No: Nausea, Vomiting Objective Exam General Appearance: No Apparent Distress, Obese HEENT: PERRL/EOMI, Moist Mucous Membranes Respiratory: Lungs Clear, Normal Breath Sounds, No Accessory Muscle Use, No Respiratory Distress Cardiovascular: Regular Rate, Rhythm, No Murmur Gastrointestinal: soft, tenderness (diffuse tenderness to palpation, worst at RUQ), other (midline incision covered with surgical glue c/d/i. Sub-xiphoid drain (Drain 1) reportedly had output of 20ml last night, RLQ drain (Drain 2) had output of 90ml, both draining mixture of blood and serous fluid) Assessment/Plan Assessment/Plan Assessment/Plan S/P Laparoscopic drainage of intrabdominal abscess POD#1 Abscess culture resulted gram negative george, will await sensitivity. Maintain patient on zosyn. Lortab providing adequate pain control. Removing rico this AM. Encouraged patient to continue using IS. He needs to ambulate today. Advance to soft diet. Supervisory-Addendum Brief Verification & Attestation Participated in pt care: history, MDM, physical Personally performed: exam, history, MDM, supervision of care Care discussed with: Medical Student Procedures: n/a Verification and Attestation of Medical Student E/M Service A medical student performed and documented this service. I then reviewed and verified all information documented by the medical student and made modifica tions to such information, when appropriate. I personally performed a physical exam, medical decision making and then discussed any differences between the notes and made revisions as necessary to create one note. Harper Richards , 07/29/22 , 14:59 WARD IBARRA Jul 29, 2022 08:03 HARPER RICHARDS DO Jul 29, 2022 14:59
--- NOTE | 2022-07-29 08:24 | Anesthesia-General Post-Op ---
General Patient Condition Mental Status/LOC: Same as Preop Cardiovascular: Satisfactory Nausea/Vomiting: Absent Respiratory: Satisfactory Pain: Controlled Complications: Absent Post Op Complications Complications None Follow Up Care/Instructions Patient Instructions None needed. Anesthesia/Patient Condition Patient Condition Patient is doing well, no complaints, stable vital signs, no apparent adverse anesthesia problems. No complications reported per nursing. D/C home per [facility] Criteria: Yes GILLIAN RUIZ CRNA Jul 29, 2022 08:24
[2022-07-29] MEDS ORDERED: PANTOPRAZOLE 40 MG (PROTONIX) VIAL IVP SCH (09:00)
[2022-07-29 11:35] VITALS: BP 125/67
[2022-07-29] MEDS ORDERED: ACHYD1T PO (14:55)
--- NOTE | 2022-07-29 14:57 | Discharge Inst-Surgical ---
Discharge Inst-Surgical Depart Medication/Instructions New, Converted or Re-Newed RX: Transmitted to Pharmacy Patient Instructions Follow up Appt: Make appointment for 1 week. [phone] Instructions: No lifting greater than 20 pounds. No strenuous activity. May shower in 24 hours, no tub bath or soaking. Use incentive spirometer at home as directed. No Smoking Skin/Wound Care: May remove bandages in am. You need to leave the Dermabond on incision it will fall off on it's own. Symptoms to Report: Appetite Changes, Extremity Discoloration, Numbness/Tingling, Swelling Increased, Bleeding Excessive, Eyesight Changes, Pain Increased, Urine Color Change, Constipation(Persistent), Fever over 101 degree F, Pain/Pressure in chest, Urinating Difficulty, Cough Up/Vomit Blood, Heart Beat Irreg/Pounding, Pain/Pressure in jaw, Cramps in feet or legs, Lightheadedness, Pain/Pressure in shoulder, Diarrhea(Persistent), Memory Changes Suddenly, Questions/Concerns, Weight gain consecutive days, Dizziness/Fainting, Nausea/Vomiting, Shortness of Breath, Weight gain over 2 pounds If questions or concerns contact your physician Or seek help at emergency department. Activity Activity Instructions: Avoid Stress to Incision Driving Instructions: No Driving/Refer to Diet Discharge Diet: No Restrictions Diet After 24 Hours: Clear Liquid if Nauseous If Any Problems/Questions/Issu: Contact Your Physician, Go to Emergency Room Skin/Wound Care Infection Signs and Symptoms: Increased Redness, Foul Odor of Wound, Increased Drainage, Skin Itchy or Has a Rash, Increased Swelling, Temperature Above 101 F Wound Care Comment: ROCAEL drain teaching Bathing Instructions: Sponge Stitches/[place]/Dermabond Dis: Keshavabond HARPER RICHARDS DO Jul 29, 2022 14:57
[2022-07-29 15:25] VITALS: BP 125/67
== END 2022-07-29 15:25 | disposition home or self-care (01) ==
LOC: SDC 11:57 → 4TH 17:45 → SDC 07-29 15:25
PROVIDERS: ATTEND Surgery
DX: L03.311 Cellulitis of abdominal wall (principal); E66.9 Obesity, unspecified; Z68.34 Body mass index [BMI] 34.0-34.9, adult
CPT/HCPCS: 82947; 87070; 87075; 87077; 87081; 87186; 87205; 94664

== ENCOUNTER → 2022-12-10 | Outpatient (CLI) | payer MEDICARE ==
[~2022-12-10] MED LIST changes: +ACHYD1T PO; +ALBU8.5H6 IH; -RT-ALBUINH IH
== END ==
LOC: CARD 13:39
PROVIDERS: ATTEND Internal Medicine Cardiovascular Disease
DX: I10 Essential (primary) hypertension (principal); I25.10 Atherosclerotic heart disease of native coronary artery without angina pectoris
CPT/HCPCS: 93306

== ENCOUNTER → 2022-12-24 | Outpatient (CLI) | payer MEDICARE ==
[~2022-12-24] MED LIST changes: +RT-ALBUTEROL SULF 2.5 MG/3 ML PRE-MIX VIAL INH ONE
== END ==
LOC: RT 14:15
PROVIDERS: ATTEND Nurse Practitioner Family
DX: J45.30 Mild persistent asthma, uncomplicated (principal)
CPT/HCPCS: 94060; 94726; 94729